=== PATIENT | male | born 1940 | race Hispanic/Latino ===

== ENCOUNTER 2016-12-25 11:25 | Emergency (ER) | payer MEDICAID, MEDICARE, OTHER ==
[2016-12-25 11:32] VITALS: BMI 31.0
[2016-12-25 11:39] VITALS: TEMP 98.5
--- NOTE | 2016-12-25 12:19 | ED PDOC ---
Arrival/HPI - General Chief Complaint: GI Problem Time Seen by Provider: 12/25/16 11:36 Historian: Patient - History of Present Illness Narrative History of Present Illness (Text): 12/25/16 12:20 A 76 year old male, whose past medical history includes CAD with stent, presents to the emergency department complaining of constipation for the past 4 days. Patient also notes loose bowel movements. Patient has a history of constipation. Patient denies nausea, vomiting, abdominal pain or any other complaints at this time. Patient denies smoking, alcohol or drug use. Time/Duration: Other (4 days) Symptom Onset: Sudden Symptom Course: Unchanged Activities at Onset: Rest Modifying Factors (Text): none Context: Home Associated Symptoms (Text): loose bowel movements Past Medical History - Provider Review Nursing Documentation Reviewed: Yes - Tetanus Immunization Tetanus Immunization: Unknown - Cardiac Hx Hypertension: Yes Hx Pacemaker: Yes - Pulmonary Hx Respiratory Disorders: No - Neurological Hx Paralysis: No - HEENT Hx Cataracts: Yes (early stage) - Renal Other/Comment: renal stent 2 months ago - Endocrine/Metabolic Hx Endocrine Disorders: No - Hematological/Oncological Hx Blood Transfusions: No Hx Blood Transfusion Reaction: No - Integumentary Hx Dermatological Disorder: No - Musculoskeletal/Rheumatological Hx Musculoskeletal Disorders: Yes (Hx of Laminectomy.) - Gastrointestinal Hx Gastrointestinal Disorders: No - Genitourinary/Gynecological 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) - Psychiatric Hx Emotional Abuse: No Hx Physical Abuse: No Hx Substance Use: No - Past Surgical History Past Surgical History: No Previous - Surgical History Hx Coronary Stent: Yes Other/Comment: renal stents - Anesthesia Hx Anesthesia: Yes Hx Anesthesia Reactions: No Hx Malignant Hyperthermia: No - Suicidal Assessment Feels Threatened In Home Enviroment: No Family/Social History - Physician Review Nursing Documentation Reviewed: Yes Family/Social History: No Known Family HX Smoking Status: Former Smoker Hx Alcohol Use: Yes (RARE) Hx Substance Use: No Allergies/Home Meds Allergies/Adverse Reactions: Allergies No Known Allergies Allergy (Verified 12/25/16 11:39) Home Medications: Home Meds Medication Instructions Recorded Confirmed Atorvastatin [Lipitor] 20 mg PO QPM 07/17/13 12/25/16 Aspirin [Aspirin] 81 mg PO DAILY 07/19/13 12/25/16 Irbesartan/Hydrochlorothiazide 1 tab PO DAILY 11/14/13 12/25/16 [Avalide 12.5 mg-300 mg] Cholecalciferol (Vitamin D3) 1,000 unit PO DAILY 02/08/16 12/25/16 [Vitamin D3] Docusate [Colace] 50 mg PO DAILY 02/08/16 12/25/16 Esomeprazole Magnesium [Nexium] 40 mg PO DAILY 02/08/16 12/25/16 Fish Oil/Dha/Epa [Fish Oil 1,200 1 each PO DAILY 02/08/16 12/25/16 mg Fish Oil] Ubidecarenone [Co Q-10] 10 mg PO DAILY 02/08/16 12/25/16 Review of Systems - Physician Review All systems were reviewed & negative as marked: Yes - Review of Systems Constitutional: absent: Fevers Respiratory: Normal Cardiovascular: Normal Gastrointestinal: Stool Changes (loose bowel movements), Constipation. absent: Abdominal Pain, Nausea, Vomiting, Appetite Changes, Anorexia Physical Exam Vital Signs Reviewed: Yes Vital Signs Temp Pulse Resp BP Pulse Ox 12/25/16 11:32 98.5 F 81 20 169/60 H 99 Temperature: Afebrile Blood Pressure: Hypertensive Pulse: Regular Respiratory Rate: Normal Appearance: Positive for: Well-Appearing, Non-Toxic, Comfortable Pain Distress: None Mental Status: Positive for: Alert and Oriented X 3 - Systems Exam Head: Present: Atraumatic, Normocephalic Pupils: Present: PERRL Extroacular Muscles: Present: EOMI Conjunctiva: Present: Normal Mouth: Present: Moist Mucous Membranes Neck: Present: Normal Range of Motion Respiratory/Chest: Present: Clear to Auscultation, Good Air Exchange. No: Respiratory Distress, Accessory Muscle Use Cardiovascular: Present: Regular Rate and Rhythm, Normal S1, S2. No: Murmurs Abdomen: Present: Normal Bowel Sounds. No: Tenderness, Distention, Peritoneal Signs Rectal: Present: Normal Rectal Tone, Other (soft brown guaiac neg stool with no fecal impaction). No: Occult Blood, Rectal Tenderness, Gross Blood, Melena, Hemorrhoids, Fissures, Nodule/Mass/Lesions Back: Present: Normal Inspection Upper Extremity: Present: Normal Inspection. No: Cyanosis, Edema Lower Extremity: Present: Normal Inspection. No: Edema Neurological: Present: GCS=15, CN II-XII Intact, Speech Normal Skin: Present: Warm, Dry, Normal Color. No: Rashes Psychiatric: Present: Alert, Oriented x 3, Normal Insight, Normal Concentration Medical Decision Making ED Course and Treatment: 12/25/16 12:18 Impression: A 76 year old male with constipation. Differential Diagnosis included but are not limited to: Plan: -- fleet enema -- Reassess and disposition Prior Visits: Notes and results from previous visits were reviewed. Patient last reported to the emergency department on 02/19/14 for evaluation of generalized weakness and dizziness. Patient was hospitalized. Progress Notes: 12/25/16 13:43 good results with fleets enema. - Medication Orders Current Medication Orders: Discontinued Medications Sodium Phosphate (Fleet Enema) 135 ml RC STAT STA Stop: 12/25/16 11:45 Last Admin: 12/25/16 12:35 Dose: 135 ml - Scribe Statement The provider has reviewed the documentation as recorded by the Lexisibtaz Garcia Provider Scribe Attestation: All medical record entries made by the Scribe were at my direction and personally dictated by me. I have reviewed the chart and agree that the record accurately reflects my personal performance of the history, physical exam, medical decision making, and the department course for this patient. I have also personally directed, reviewed, and agree with the discharge instructions and disposition. Disposition/Present on Arrival - Present on Arrival Any Indicators Present on Arrival: No History of DVT/PE: No History of Uncontrolled Diabetes: No Urinary Catheter: No History of Decub. Ulcer: No History Surgical Site Infection Following: None - Disposition Have Diagnosis and Disposition been Completed?: Yes Diagnosis: Constipation Disposition: HOME/ ROUTINE Disposition Time: 13:44 Patient Plan: Discharge Condition: IMPROVED Discharge Instructions (ExitCare): Constipation (ED) Additional Instructions: MiraLAX [id number] as directed on bottle as needed
[2016-12-25 14:24] VITALS: BP 151/74; PULSE 80; RESP 18; O2SAT 98
== END 2016-12-25 14:23 | disposition home or self-care (01) ==
LOC: ED 11:25
DX: K59.00 Constipation, unspecified (principal)

== ENCOUNTER 2016-12-27 09:36 | Inpatient (IN) | payer MEDICARE, OTHER ==
[2016-12-27 09:37] VITALS: BMI 31.0
[2016-12-27] MEDS ORDERED: Morphine 2 mg/ml ISec IVP STA ×2 (11:18→12:52)
[2016-12-27] MEDS ORDERED: Piperacillin/Tazobact 3.375 gm 100 ML IVPB STA (11:19)
--- NOTE | 2016-12-27 11:19 | ED PDOC ---
Arrival/HPI - General Chief Complaint: Abdominal Pain Time Seen by Provider: 12/27/16 11:06 Historian: Patient - History of Present Illness Narrative History of Present Illness (Text): 12/27/16 11:17 Patient is a 76 year old male whose past medical history includes renal stent, pacemaker, CAD, presents to the emergency department with buttock pain, incomplete bowel movements, and decreased urinary output for the past few days. Patient also reports intermittent chills after eating for the past week. Patient states he was seen here in the ED two days ago and given fleet enema but has not had any normal bowel movements since. Patient reports last bowel movement this morning which was small. He states his urine has been "trickling" since being discharged. Denies bloody stool, chest pain, shortness of breath, or other symptoms. PMD: Dr. Orantes Time/Duration: < week Symptom Onset: Gradual Symptom Course: Unchanged Associated Symptoms (Text): Chills Past Medical History - Provider Review Nursing Documentation Reviewed: Yes - Tetanus Immunization Tetanus Immunization: Unknown - Cardiac Hx Cardiac Disorders: Yes Hx Hypertension: Yes Hx Pacemaker: Yes - Pulmonary Hx Respiratory Disorders: No - Neurological Hx Neurological Disorder: No Hx Paralysis: No - HEENT Hx HEENT Disorder: Yes Hx Cataracts: Yes (early stage) - Renal Hx Renal Disorder: Yes Other/Comment: renal stent 2 months ago - Endocrine/Metabolic Hx Endocrine Disorders: No - Hematological/Oncological Hx Blood Transfusions: No Hx Blood Transfusion Reaction: No - Integumentary Hx Dermatological Disorder: No - Musculoskeletal/Rheumatological Hx Musculoskeletal Disorders: Yes (Hx of Laminectomy.) - Gastrointestinal Hx Gastrointestinal Disorders: No - Genitourinary/Gynecological Hx Genitourinary Disorders: Yes 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) - Psychiatric Hx Psychophysiologic Disorder: No Hx Emotional Abuse: No Hx Physical Abuse: No Hx Substance Use: No - Past Surgical History Past Surgical History: No Previous - Surgical History Hx Coronary Stent: Yes Other/Comment: renal stents - Anesthesia Hx Anesthesia: Yes Hx Anesthesia Reactions: No Hx Malignant Hyperthermia: No - Suicidal Assessment Feels Threatened In Home Enviroment: No Family/Social History - Physician Review Nursing Documentation Reviewed: Yes Family/Social History: Unknown Family HX Smoking Status: Former Smoker Hx Alcohol Use: No Hx Substance Use: No Allergies/Home Meds Allergies/Adverse Reactions: Allergies No Known Allergies Allergy (Verified 12/27/16 09:51) Home Medications: Home Meds Medication Instructions Recorded Confirmed Atorvastatin [Lipitor] 20 mg PO QPM 07/17/13 12/27/16 Aspirin [Aspirin] 81 mg PO DAILY 07/19/13 12/27/16 Irbesartan/Hydrochlorothiazide 1 tab PO DAILY 11/14/13 12/27/16 [Avalide 12.5 mg-300 mg] Cholecalciferol (Vitamin D3) 1,000 unit PO DAILY 02/08/16 12/27/16 [Vitamin D3] Docusate [Colace] 50 mg PO DAILY 02/08/16 12/27/16 Esomeprazole Magnesium [Nexium] 40 mg PO DAILY 02/08/16 12/27/16 Fish Oil/Dha/Epa [Fish Oil 1,200 1 each PO DAILY 02/08/16 12/27/16 mg Fish Oil] Ubidecarenone [Co Q-10] 10 mg PO DAILY 02/08/16 12/27/16 Review of Systems - Review of Systems Constitutional: Fatigue, Other (Chills) Eyes: absent: Vision Changes ENT: absent: Hearing Changes Respiratory: absent: SOB, Cough Cardiovascular: absent: Chest Pain, Palpitations Gastrointestinal: Abdominal Pain, Constipation. absent: Vomiting, Hematochezia Genitourinary Male: Urinary Output Changes (decreased). absent: Dysuria, Frequency Musculoskeletal: absent: Back Pain Skin: absent: Rash Neurological: absent: Headache, Dizziness, Focal Weakness Endocrine: absent: Diaphoresis Hemo/Lymphatic: absent: Easy Bleeding Psychiatric: absent: Depression Physical Exam - Physical Exam Narrative Physical Exam (Text): Head: Atraumatic. Normocephalic. Eyes: PERRL. EOMI. Conjunctivae are not pale. ENT: Mucous membranes are moist and intact. Oropharynx is clear and symmetric. Neck: Supple. Full ROM. No JVD. No lymphadenopathy. Cardiovascular: Regular rate. Regular rhythm. Systolic murmur. Distal pulses intact. Pulmonary/Chest: No evidence of respiratory distress. Clear to auscultation bilaterally. No wheezing, rales or rhonchi. Abdominal: Distended. Diffuse discomfort in all 4 quadrants. There is no tenderness. No rebound, guarding, or rigidity. No organomegaly. Good bowel sounds. Back: No CVA tenderness. Rectal: Tenderness and erythematous mass from left buttock extending to rectum. Tender on rectal exam with no melena or bright red blood per rectum. Extremities: No edema. No cyanosis. No clubbing. Full range of motion in all extremities. No calf tenderness. Skin: Skin is warm and dry. No petechiae. No purpura. Neurological: Alert, awake, and oriented to person, place, time, and situation. Normal speech. Motor and sensory exam intact. Psychiatric: Good eye contact. Normal interaction, affect, and behavior. Vital Signs Reviewed: Yes Vital Signs Temp Pulse Resp BP Pulse Ox 12/27/16 14:54 65 177 H 107/44 L 98 12/27/16 14:45 61 17 96/49 L 98 12/27/16 14:30 68 16 104/49 L 97 12/27/16 14:15 61 17 115/45 L 97 12/27/16 14:10 70 17 123/33 L 97 12/27/16 13:55 64 17 104/33 L 96 12/27/16 13:40 72 17 100/65 97 12/27/16 13:25 70 16 111/53 L 97 12/27/16 13:10 73 17 111/59 L 97 12/27/16 12:55 62 17 86/39 L 97 12/27/16 12:40 70 16 120/36 L 97 12/27/16 12:10 61 18 109/63 100 12/27/16 09:54 97.8 F 78 17 121/64 98 Temperature: Afebrile Blood Pressure: Normal Pulse: Regular Respiratory Rate: Normal Appearance: Positive for: Non-Toxic, Uncomfortable Pain Distress: Moderate Mental Status: Positive for: Alert and Oriented X 3 Medical Decision Making ED Course and Treatment: Differential Diagnosis included but are not limited to: Bowel obstruction vs perirectal abscess vs sepsis vs urinary retention Plan: Will obtain CT of the Abdomen/Pelvis, IV antibiotics, blood cultures, and surgical consult. Prior Visits: Notes and results from previous visits were reviewed. Patient last seen in the ED on 12/25/16 for constipation and discharged home with Miralax. 2014 report shows patient's EF of 60%. Progress Notes: Patient with severe pain around buttock extending to rectum, with erythema and mass palpated. Based on exam susicious of perirectal abscess. PROCEDURE: CT Abdomen and Pelvis without intravenous contrast Report Date : 12/27/2016 12:46:18 Tank Cooper : Rafat Gore MD BOWEL: There is an extensive perirectal and left gluteal abscess. The abscess can be seen inferior to the levator muscles of the pelvis. This is best appreciated on coronal images 98-104. Gas and fluid collections are seen which extend into the left buttocks best demonstrated on image 170. The perianal/perirectal component measures 5 x 7 cm as seen on image 160. The gluteal inflammation and air collections measure approximately 8 cm in diameter image 173 IMPRESSION: Extensive perirectal/perianal abscess on the left extending into the left gluteal region. See comment Based on initial exam, surgery was consulted immediately after exam. PMD requests Dr. Infante, Dr. Howe covering. Case discussed with Dr. Howe who has reviewed CT Case discussed with Dr. Sharpe, covering Dr. Orantes, who accepts patient for admission Case discussed with superintendent operations division Dr. Prabhakar will be admitted to icu pending surgery plan this afternoon Code Sepsis was called based on leukocytosis, lactate of 2.0, renal insufficiency. IV fluid bolus ordered and patient given Zosyn and Flagyl. Patient was admitted to ICU given risks of sepsis, emergent surgery scheduled with Dr. Howe. He denies any chest pain or shortness of breath. Treatment plan reviewed with patient and family. 12/27/16 16:05 - Critical Care Critical Care Minutes: 30 minutes - Lab Interpretations Lab Results: 12/27/16 10:10 12/27/16 10:10 Lab Results 12/27/16 11:23: POC Glucose (mg/dL) 161 H 12/27/16 10:10: Sodium 134, Chloride 95 L, Potassium 3.6, Carbon Dioxide 22, Anion Gap 21 H, BUN 57 H, Creatinine 2.3 H, Est GFR ( Amer) 34, Est GFR ( Non-Af Amer) 28, Random Glucose 144 H, Calcium 8.9, Total Bilirubin 1.5 H, AST 67 H, ALT 43, Alkaline Phosphatase 143 H, Lactate Dehydrogenase 578, Total Creatine Kinase 946 H, CK-MB (CK-2) 17.5 H, CK-MB (CK-2) % 1.8 L, Troponin I 0.03 D, Total Protein 7.4, Albumin 3.5, Globulin 3.9, Albumin/Globulin Ratio 0.9 L 12/27/16 10:10: PT 12.5 H, INR 1.16 H, APTT 34.4 H 12/27/16 10:10: WBC 25.9 H* D, RBC 4.40, Hgb 13.5 L, Hct 39.1 L, MCV 88.9, MCH 30.7, MCHC 34.5, RDW 12.9, Plt Count 381, MPV 11.6 H, Gran % 90.3 H, Lymph % ( Auto) 4.1 L, [place] % (Auto) 5.4, Eos % (Auto) 0.0 L, Baso % (Auto) 0.2, Gran # 23.34 H, Lymph # 1.1 L, [place] # 1.4 H, Eos # 0.0, Baso # 0.04 12/27/16 10:10: pO2 28 L, VBG pH 7.41, VBG pCO2 39.0 L, VBG HCO3 24.7, VBG Total CO2 25.9, VBG O2 Sat (Calc) 57.1, VBG Base Excess 0.1, VBG Potassium 4.0, Sodium 131.0 L, Chloride 101.0, Glucose 158 H, Lactate 2.0, FiO2 21.0, Venous Blood Potassium 4.0 - RAD Interpretation Radiology Orders: 12/27/16 11:16 ABD & PELVIS W/O PO OR IV CONT [CT] Stat 12/27/16 11:17 CHEST ONE VIEW [RAD] Stat Synoptic Meteorologist: Radiologist - EKG Interpretation EKG Interpretation (Text): 12/27/16 16:03 EKG at 11:20 electronic ventricualar pacemaker rate of 65 Interpreted by ED Physician: Yes Type: 12 lead EKG - Medication Orders Current Medication Orders: Hydromorphone HCl (Dilaudid) 0.5 mg IVP Q15M PRN PRN Reason: Pain, moderate (4-7) Stop: 12/27/16 17:45 Metronidazole (Flagyl) 500 mg in 100 mls @ 100 mls/hr IVPB Q8 ADRIANNE PRN Reason: Protocol Piperacillin Sod/Tazobactam Sod (Zosyn 3.375 In Ns 100ml) 100 mls @ 200 mls/hr IVPB Q6 ADRIANNE PRN Reason: Protocol Stop: 12/28/16 00:29 Vancomycin HCl (Vancomycin 1gm) 1 gm in 250 mls @ 167 mls/hr IVPB STAT STA PRN Reason: Protocol Stop: 12/27/16 16:11 Sodium Chloride (Sodium Chloride 0.9%) 1,000 mls @ 100 mls/hr IV .Q10H ADRIANNE Meperidine HCl (Demerol) 25 mg IVP Q10M PRN PRN Reason: shivering Stop: 12/27/16 16:54 Morphine Sulfate (Morphine) 2 mg IVP Q4H PRN PRN Reason: Pain, moderate (4-7) Ondansetron HCl (Zofran Inj) 4 mg IVP Q4H PRN PRN Reason: Nausea/Vomiting Ondansetron HCl (Zofran Inj) 4 mg IVP ONCE PRN PRN Reason: Nausea/Vomiting Pantoprazole Sodium (Protonix Inj) 40 mg IVP DAILY ADRIANNE Discontinued Medications Bupivacaine HCl (Marcaine 0.5%) Confirm Administered Dose 30 ml .ROUTE .STK-MED ONE Stop: 12/27/16 14:34 Last Admin: 12/27/16 15:30 Dose: 5 ml Fentanyl (Fentanyl) Confirm Administered Dose 100 mcg .ROUTE .STK-MED ONE Stop: 12/27/16 15:17 Piperacillin Sod/Tazobactam Sod (Zosyn 3.375 In Ns 100ml) 100 mls @ 200 mls/hr IVPB STAT STA PRN Reason: Protocol Stop: 12/27/16 11:48 Last Admin: 12/27/16 11:37 Dose: 200 mls/hr Sodium Chloride (Sodium Chloride 0.9%) 500 mls @ 1,000 mls/hr IV .Q30M STA Stop: 12/27/16 12:46 Last Admin: 12/27/16 12:24 Dose: 1,000 mls/hr Sodium Chloride 2,360 ml/ IV (SUPPLIES) 2,360 mls @ 5,715.24 mls/hr IV ONCE ONE PRN Reason: 60 ML/KG/HR Stop: 12/27/16 12:38 Last Admin: 12/27/16 12:51 Dose: 5,715.24 mls/hr Metronidazole (Flagyl) 500 mg in 100 mls @ 100 mls/hr IVPB STAT STA PRN Reason: Protocol Stop: 12/27/16 13:50 Last Admin: 12/27/16 13:22 Dose: 100 mls/hr Sodium Chloride (Sodium Chloride 0.9%) 1,000 mls @ 75 mls/hr IV .[id number] ADRIANNE Last Admin: 12/27/16 13:33 Dose: 75 mls/hr Magnesium Sulfate 2 gm/ Sodium (Chloride) 104 mls @ 102 mls/hr IVPB ONCE ONE Stop: 12/27/16 15:56 Lidocaine HCl (Xylocaine 2% (Uro-Jet)) Confirm Administered Dose 1 ea .ROUTE .STK-MED ONE Stop: 12/27/16 15:08 Midazolam HCl (Versed Inj) Confirm Administered Dose 2 mg .ROUTE .STK-MED ONE Stop: 12/27/16 15:17 Morphine Sulfate (Morphine) 2 mg IVP STAT STA Stop: 12/27/16 11:19 Last Admin: 12/27/16 11:23 Dose: 2 mg Re-Assess: [facility] Pain Assessment Document 12/27/16 12:23 ALA (Rec: 12/27/16 12:52 ALA [id number]) Pain Reassessment Is this a pain reassessment? Yes Morphine Sulfate (Morphine) 2 mg IVP STAT STA Stop: 12/27/16 12:53 Last Admin: 12/27/16 13:22 Dose: 2 mg Re-Assess: [facility] Pain Assessment Document 12/27/16 14:22 ALA (Rec: 12/27/16 14:32 ALA [id number]) Pain Reassessment Is this a pain reassessment? Yes Presence of Pain Presence of Pain Yes Pain Scale Used Pain Scale Used Numeric Description Intensity of Pain at present 4 Propofol (Diprivan) Confirm Administered Dose 200 mg .ROUTE .STK-MED ONE Stop: 12/27/16 15:17 - Scribe Statement The provider has reviewed the documentation as recorded by the Lex Davis Provider Scribe Attestation: All medical record entries made by the Scribtaz were at my direction and personally dictated by me. I have reviewed the chart and agree that the record accurately reflects my personal performance of the history, physical exam, medical decision making, and the department course for this patient. I have also personally directed, reviewed, and agree with the discharge instructions and disposition. Disposition/Present on Arrival - Present on Arrival Any Indicators Present on Arrival: No History of DVT/PE: No History of Uncontrolled Diabetes: No Urinary Catheter: No History of Decub. Ulcer: No History Surgical Site Infection Following: None - Disposition Have Diagnosis and Disposition been Completed?: Yes Diagnosis: Perirectal abscess Disposition: HOSPITALIZED Disposition Time: 12:00 Patient Plan: Admission, ICU Patient Problems: Current Active Problems Problem Status Onset Perirectal abscess Acute Condition: CRITICAL
[2016-12-27 11:57] LABS: VENOUS BLOOD GAS BASE EXCESS 0.1 mmol/L (0.0-2.0); VENOUS BLOOD PH 7.41 (7.32-7.43)
[2016-12-27 12:02] LABS: BASO # 0.04 K/mm3 (0.0-2.0); BASO % 0.2 % (0.0-3.0); GRAN # 23.34 (1.4-6.5); GRAN % 90.3 % (50.0-68.0); HEMATOCRIT 39.1 % (42.0-52.0); LYMPH # 1.1 (1.2-3.4); LYMPH % 4.1 % (22.0-35.0); MEAN CELL VOLUME 88.9 fL (80.0-105.0); MEAN CORPUSCULAR HEMOGLOBIN 30.7 pg (25.0-35.0); MEAN CORPUSCULAR HGB CONC 34.5 g/dl (31.0-37.0); MEAN PLATELET VOLUME 11.6 fl (7.0-11.0); MONO # 1.4 (0.1-0.6); MONO % 5.4 % (1.0-6.0); PLATELET COUNT 381 10^3/uL (120.0-450.0); RED CELL DISTRIBUTION WIDTH 12.9 % (11.5-14.5)
[2016-12-27 12:07] LABS: ADD MANUAL DIFF? NO; WHITE BLOOD COUNT 25.9 10^3/ul (4.5-11.0)
[2016-12-27 12:09] LABS: ALB/GLOB RATIO 0.9 (1.1-1.8); BILIRUBIN,TOTAL 1.5 mg/dL (0.2-1.3); CALCIUM 8.9 mg/dL (8.4-10.5); INR 1.16 (0.93-1.08); PARTIAL THROMBOPLASTIN TIME 34.4 Seconds (23.7-30.8); POTASSIUM 3.6 mmol/L (3.6-5.0); TOTAL PROTEIN 7.4 g/dL (5.8-8.3)
[2016-12-27] MEDS ORDERED: Sodium Chloride 0.9% 500 ML IV STA (12:17)
[2016-12-27 12:20] LABS: TROPONIN I 0.03 ng/mL
--- NOTE | 2016-12-27 12:47 | CT ---
PROCEDURE: CT Abdomen and Pelvis without intravenous contrast HISTORY: possible bowel or renal obstruction, left buttock COMPARISON: None. TECHNIQUE: Without contrast.. Contrast Dose: Radiation dose: Total exam DLP = 1069 mGy-cm. This CT exam was performed using one or more of the following dose reduction techniques: Automated exposure control, adjustment of the mA and/or kV according to patient size, and/or use of iterative reconstruction technique. FINDINGS: LOWER THORAX: Unremarkable. LIVER: Unremarkable. No gross lesion or ductal dilatation. GALLBLADDER AND BILE DUCTS: Unremarkable. PANCREAS: Unremarkable. No gross lesion or ductal dilatation. SPLEEN: Unremarkable. ADRENALS: Unremarkable. No mass. KIDNEYS AND URETERS: Unremarkable. No hydronephrosis. No solid mass. VASCULATURE: Unremarkable. No aortic aneurysm. BOWEL: There is an extensive perirectal and left gluteal abscess. The abscess can be seen inferior to the levator muscles of the pelvis. This is best appreciated on coronal images 98-104. Gas and fluid collections are seen which extend into the left buttocks best demonstrated on image 170. The perianal/perirectal component measures 5 x 7 cm as seen on image 160. The gluteal inflammation and air collections measure approximately 8 cm in diameter image 173 APPENDIX: Unremarkable. Normal appendix. PERITONEUM: Unremarkable. No free fluid. No free air. LYMPH NODES: Unremarkable. No enlarged lymph nodes. BLADDER: Unremarkable. REPRODUCTIVE: Unremarkable. BONES: No acute fracture. OTHER FINDINGS: None. IMPRESSION: Extensive perirectal/perianal abscess on the left extending into the left gluteal region. See comment
[2016-12-27] MEDS ORDERED: metroNIDAZOLE IV 500 mg/100 ml 500 MG/100 ML BAG IVPB STA (12:51)
--- NOTE | 2016-12-27 12:54 | RAD ---
PROCEDURE: CHEST RADIOGRAPH, 1 VIEW HISTORY: weakness COMPARISON: 02/21/2014 FINDINGS: LUNGS: Clear. PLEURA: No pneumothorax or pleural fluid seen. CARDIOVASCULAR: Normal. OSSEOUS STRUCTURES: No significant abnormalities. VISUALIZED UPPER ABDOMEN: Normal. OTHER FINDINGS: Single lead pacemaker IMPRESSION: No active disease.
--- NOTE | 2016-12-27 13:08 | CP.PCM.HP ---
<Ashlyn Moore - Last Filed: 12/27/16 17:03> History of Present Illness - History of Present Illness History of Present Illness: CC: My but area feels unconfortable. 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 Patient states for the past 2 weeks he has been feeling uncomfortable in the rectal area. Then On Sunday when he tried to defecate the stool doesn't come out. Patient was in the ER on Sunday, and was treated for constipation with fleet enema. Patient states when he went home, the problem continued. Patient called PMD today and was told to come to the ED. Patient states today when he tried to whip after defecation, and felt a hard rock on the left side of his anus. Patient denies prior h/o of rectal abscess. Patient denies fever, but reports chills. Patient denies cp, sob, headache, dizziness, Patient denies nausea, vomiting or diarrhea. 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 PSH: Robotic prostrate cancer recontruciton, back surgery, PPM, carotid endarterectomy ( last year) Social: former smoker, quit 4 yrs ago, denies alcohol or illicit drug use Allergy: NKDA. Present on Admission - Present on Admission Any Indicators Present on Admission: No History of DVT/PE: No History of Uncontrolled Diabetes: No Urinary Catheter: No Decubitus Ulcer Present: No Review of Systems - Review of Systems All systems: reviewed and no additional remarkable complaints except Review of Systems: As stated in HPI. Past Patient History - Tetanus Immunizations Tetanus Immunization: Unknown - Past Medical History & Family History Past Medical History?: Yes - Past Social History Smoking Status: Former Smoker Alcohol: None Drugs: Denies Home Situation {Lives}: With Family - CARDIAC Hx Cardiac Disorders: Yes Hx Hypertension: Yes Hx Pacemaker: Yes - PULMONARY Hx Respiratory Disorders: No - NEUROLOGICAL Hx Neurological Disorder: No Hx Paralysis: No - HEENT Hx HEENT Problems: Yes Hx Cataracts: Yes (early stage) - RENAL Hx Chronic Kidney Disease: Yes Other/Comment: renal stent 2 months ago - ENDOCRINE/METABOLIC Hx Endocrine Disorders: No - HEMATOLOGICAL/ONCOLOGICAL Hx Blood Transfusions: No Hx Blood Transfusion Reaction: No - INTEGUMENTARY Hx Dermatological Problems: No - MUSCULOSKELETAL/RHEUMATOLOGICAL Hx Musculoskeletal Disorders: Yes (Hx of Laminectomy.) - GASTROINTESTINAL Hx Gastrointestinal Disorders: No - GENITOURINARY/GYNECOLOGICAL Hx Genitourinary Disorders: Yes 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) - PSYCHIATRIC Hx Psychophysiologic Disorder: No Hx Emotional Abuse: No Hx Physical Abuse: No Hx Substance Use: No - SURGICAL HISTORY Hx Coronary Stent: Yes Other/Comment: renal stents - ANESTHESIA Hx Anesthesia: Yes Hx Anesthesia Reactions: No Hx Malignant Hyperthermia: No Meds Allergies/Adverse Reactions: Allergies Allergy/AdvReac Type Severity Reaction Status Date / Time No Known Allergies Allergy Verified 12/27/16 09:51 Physical Exam - Constitutional Appears: No Acute Distress - Head Exam Head Exam: ATRAUMATIC, NORMAL INSPECTION, NORMOCEPHALIC - Eye Exam Eye Exam: EOMI, Normal appearance, PERRL. absent: Scleral icterus - ENT Exam ENT Exam: Mucous Membranes Moist - Neck Exam Neck exam: Positive for: Normal Inspection - Respiratory Exam Respiratory Exam: Clear to Auscultation Bilateral, NORMAL BREATHING PATTERN. absent: Rales, Rhonchi, Wheezes, Respiratory Distress, Stridor - Cardiovascular Exam Cardiovascular Exam: Diastolic murmur, REGULAR RHYTHM, RRR, +S1, +S2. absent: Systolic Murmur - GI/Abdominal Exam GI & Abdominal Exam: Normal Bowel Sounds, Soft. absent: Distended, Firm, Guarding, Hernia, Rigid, Tenderness - Rectal Exam Additional comments: Errythema, edematous, hard palpable mass like lesion. - Extremities Exam Extremities exam: Positive for: normal inspection. Negative for: pedal edema - Back Exam Back exam: NORMAL INSPECTION - Neurological Exam Neurological exam: Alert, Oriented x3 - Psychiatric Exam Psychiatric exam: Normal Affect, Normal Mood - Skin Skin Exam: Dry, Intact, Normal Color, Warm Results - Vital Signs Recent Vital Signs: Last Vital Signs Temp 97.8 F 12/27/16 09:54 Pulse 61 12/27/16 12:10 Resp 18 12/27/16 12:10 BP 109/63 12/27/16 12:10 Pulse Ox 100 12/27/16 12:10 - Labs Result Diagrams: 12/27/16 10:10 12/27/16 10:10 Labs: Laboratory Results - last 24 hr 12/27/16 12/27/16 12/27/16 10:10 10:10 10:10 WBC 25.9 H* D RBC 4.40 Hgb 13.5 L Hct 39.1 L MCV 88.9 MCH 30.7 MCHC 34.5 RDW 12.9 Plt Count 381 MPV 11.6 H Gran % 90.3 H Lymph % (Auto) 4.1 L [place] % (Auto) 5.4 Eos % (Auto) 0.0 L Baso % (Auto) 0.2 Gran # 23.34 H Lymph # 1.1 L [place] # 1.4 H Eos # 0.0 Baso # 0.04 PT 12.5 H INR 1.16 H APTT 34.4 H pO2 28 L VBG pH 7.41 VBG pCO2 39.0 L VBG HCO3 24.7 VBG Total CO2 25.9 VBG O2 Sat (Calc) 57.1 VBG Base Excess 0.1 VBG Potassium 4.0 Sodium 131.0 L Chloride 101.0 Glucose 158 H Lactate 2.0 FiO2 21.0 Potassium Carbon Dioxide Anion Gap BUN Creatinine Est GFR ( Amer) Est GFR (Non-Af Amer) POC Glucose (mg/dL) Random Glucose Calcium Total Bilirubin AST ALT Alkaline Phosphatase Lactate Dehydrogenase Total Creatine Kinase CK-MB (CK-2) CK-MB (CK-2) % Troponin I Total Protein Albumin Globulin Albumin/Globulin Ratio Venous Blood Potassium 4.0 12/27/16 12/27/16 10:10 11:23 WBC RBC Hgb Hct MCV MCH MCHC RDW Plt Count MPV Gran % Lymph % (Auto) [place] % (Auto) Eos % (Auto) Baso % (Auto) Gran # Lymph # [place] # Eos # Baso # PT INR APTT pO2 VBG pH VBG pCO2 VBG HCO3 VBG Total CO2 VBG O2 Sat (Calc) VBG Base Excess VBG Potassium Sodium 134 Chloride 95 L Glucose Lactate FiO2 Potassium 3.6 Carbon Dioxide 22 Anion Gap 21 H BUN 57 H Creatinine 2.3 H Est GFR ( Amer) 34 Est GFR (Non-Af Amer) 28 POC Glucose (mg/dL) 161 H Random Glucose 144 H Calcium 8.9 Total Bilirubin 1.5 H AST 67 H ALT 43 Alkaline Phosphatase 143 H Lactate Dehydrogenase 578 Total Creatine Kinase 946 H CK-MB (CK-2) 17.5 H CK-MB (CK-2) % 1.8 L Troponin I 0.03 D Total Protein 7.4 Albumin 3.5 Globulin 3.9 Albumin/Globulin Ratio 0.9 L Venous Blood Potassium - EKG Data EKG Interpreted by: Myself (paced rhythm) Assessment & Plan - Assessment and Plan (Free Text) Assessment: 76 y/o with pmh of CAD with stents in the past, AR, h/o prostate ca s/p robotic reconstruction, Gerd, hld, 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 CT abdomen and pelvis revealed extensive perirectal abscess. Plan: 1)Sepsis secondary to Kaia-rectal abscess - Surgery on consult , scheduled for OR today - npo - ns@100 m/l - Unger cultures sent - Will trend lactic acid - ID on consult - Patient started on vanco, zosyn and flagyl - Morphine prn for pain - Zofran prn fot n/v. 2) DENISE likely prerenal - will obtain fena - fluid challenge 3) Transaminitis - likely from shock liver 2nd to sepsis - will trend LRTs. 4) Coagulopathy - will trend INR -Transaminits work up 5) CAD with h/o stents and PPM - cardio consult 6) HTN - Will hold htn meds for now 7) Hypomagnesemia - will replet with mag ox 8) DVT and Gi prophylaxis: scds and protonix. Patient seen, examined, case discussed with Dr Sharpe. - Date & Time Date: 12/27/16 Time: 12:30 <Woody Sharpe - Last Filed: 01/14/17 18:59> Results - Vital Signs Recent Vital Signs: Last Vital Signs Temp 98.4 F 01/14/17 18:00 Pulse 60 01/14/17 18:00 Resp 16 01/14/17 18:00 BP 153/55 H 01/14/17 18:00 Pulse Ox 97 01/14/17 05:43 - Labs Result Diagrams: 01/14/17 06:25 01/14/17 06:25 Labs: Laboratory Results - last 24 hr 01/14/17 01/14/17 06:25 06:25 WBC 6.5 RBC 3.01 L Hgb 9.2 L Hct 26.8 L MCV 89.0 MCH 30.6 MCHC 34.3 RDW 15.2 H Plt Count 387 MPV 10.3 Gran % 62.0 Lymph % (Auto) 25.0 [place] % (Auto) 7.6 H Eos % (Auto) 5.1 H Baso % (Auto) 0.3 Gran # 4.03 Lymph # 1.6 [place] # 0.5 Eos # 0.3 Baso # 0.02 Sodium 135 Potassium 3.8 Chloride 103 Carbon Dioxide 29 Anion Gap 7 L BUN 22 H Creatinine 1.1 Est GFR ( Amer) > 60 Est GFR (Non-Af Amer) > 60 Random Glucose 113 H Calcium 8.1 L Magnesium 1.5 L Total Bilirubin 0.4 AST 59 ALT 40 Alkaline Phosphatase 49 Total Protein 5.0 L Albumin 2.1 L Globulin 2.9 Albumin/Globulin Ratio 0.7 L Attending/Attestation - Attestation I have personally seen and examined this patient.: Yes I have fully participated in the care of the patient.: Yes I have reviewed all pertinent clinical information: Yes Notes (Text): 01/14/17 18:59 Medical record note made by the resident after discussion with my direction and input after the patient was personally seen and examined by me. I have reviewed the chart and agree that the record accurately reflects by personal performance of the history, physical exam, data review, and medical decision-making, in the course for the patient. I have also personally directed the plan of care.
[2016-12-27] MEDS ORDERED: Sodium Chloride 0.9% 1,000 ML IV SCH ×2 (13:15→14:46)
[2016-12-27 13:48] LABS: MAGNESIUM 1.5 mg/dL (1.7-2.2); PHOSPHOROUS 3.3 mg/dL (2.5-4.5)
--- NOTE | 2016-12-27 14:07 | CP.PCM.CON ---
<Flory Cat - Last Filed: 12/27/16 13:41> History of Present Illness - History of Present Illness History of Present Illness: General Surgery Dr. Howe HPI: 76 y/o M w/ PMHx of HTN, HLD, CHF w/ LVEF of 23% presents to the ED w/ c/o rectal pain and hard L buttock. Pt states he first noticed the pain while riding the stationary bike ~1wk ago. Pt attributed the pain to hemorrhoids, of which he has a history. Pt also states that around that time he felt like he wasn't emptying his bowels completely during his bowel movements. Pt presented to the ED earlier in the week, was Dx w/ constipation, and sent home w/ stool softeners. Pt states that despite stool softeners, he still felt like his bowel movements were stopping prematurely. Daughter reports pt had temp of 102 on Sunday and has intermittent chills since then. Pt has had poor appetite this week w/ some nausea but no vomiting. Last evening, pt reports noticing a hardness to his left buttock as well as urinary retention, hesitancy, frequency , and urgency, which prompted pt to come to the ED. Admits to rectal pain not made worse by BM unless pushing. Pt denies hematochezia, melena. Pt denies new/ worsening dizziness, lightheadedness, CP, SOB, numbness/weakness. Pt denies any recent issues w/ bruising or bleeding. Pt states last meal was at 4pm yesterday but had some sips of water this AM prior to coming to the ED. PMHx: HTN, CHF, HLD, Carotid stenosis, renal artery stenosis, prostate Ca Meds: reviewed in chart NKDA PSHx: CEA, pacemaker, renal stent, TURP, cataracts, laminetomy SHx: quit smoking 4yrs ago, 1/2-1ppd x50yrs. denies EtOH, drugs FHx: noncontributory Review of Systems - Review of Systems All systems: reviewed and no additional remarkable complaints except (see HPI) Past Patient History - Tetanus Immunizations Tetanus Immunization: Unknown - Past Social History Smoking Status: Former Smoker - CARDIAC Hx Cardiac Disorders: Yes Hx Hypertension: Yes Hx Pacemaker: Yes - PULMONARY Hx Respiratory Disorders: No - NEUROLOGICAL Hx Neurological Disorder: No Hx Paralysis: No - HEENT Hx HEENT Problems: Yes Hx Cataracts: Yes (early stage) - RENAL Hx Chronic Kidney Disease: Yes Other/Comment: renal stent 2 months ago - ENDOCRINE/METABOLIC Hx Endocrine Disorders: No - HEMATOLOGICAL/ONCOLOGICAL Hx Blood Transfusions: No Hx Blood Transfusion Reaction: No - INTEGUMENTARY Hx Dermatological Problems: No - MUSCULOSKELETAL/RHEUMATOLOGICAL Hx Musculoskeletal Disorders: Yes (Hx of Laminectomy.) - GASTROINTESTINAL Hx Gastrointestinal Disorders: No - GENITOURINARY/GYNECOLOGICAL Hx Genitourinary Disorders: Yes 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) - PSYCHIATRIC Hx Psychophysiologic Disorder: No Hx Emotional Abuse: No Hx Physical Abuse: No Hx Substance Use: No - SURGICAL HISTORY Hx Coronary Stent: Yes Other/Comment: renal stents - ANESTHESIA Hx Anesthesia: Yes Hx Anesthesia Reactions: No Hx Malignant Hyperthermia: No Meds Allergies/Adverse Reactions: Allergies Allergy/AdvReac Type Severity Reaction Status Date / Time No Known Allergies Allergy Verified 12/27/16 09:51 - Medications Medications: Current Medications Metronidazole (Flagyl) 500 mg in 100 mls @ 100 mls/hr IVPB STAT STA PRN Reason: Protocol Stop: 12/27/16 13:50 Last Admin: 12/27/16 13:22 Dose: 100 mls/hr Sodium Chloride (Sodium Chloride 0.9%) 1,000 mls @ 75 mls/hr IV .[id number] ADRIANNE Last Admin: 12/27/16 13:33 Dose: 75 mls/hr Metronidazole (Flagyl) 500 mg in 100 mls @ 100 mls/hr IVPB Q8 ADRIANNE PRN Reason: Protocol Piperacillin Sod/Tazobactam Sod (Zosyn 3.375 In Ns 100ml) 100 mls @ 200 mls/hr IVPB Q6 ADRIANNE PRN Reason: Protocol Stop: 12/28/16 00:29 Morphine Sulfate (Morphine) 2 mg IVP Q4H PRN PRN Reason: Pain, moderate (4-7) Physical Exam - Constitutional Appears: Toxic, No Acute Distress - Head Exam Head Exam: NORMAL INSPECTION - Eye Exam Eye Exam: Normal appearance - ENT Exam ENT Exam: absent: Mucous Membranes Moist (dry) - Neck Exam Additional comments: scar from CEA - Respiratory Exam Respiratory Exam: Clear to Auscultation Bilateral, NORMAL BREATHING PATTERN. absent: Accessory Muscle Use, Respiratory Distress - Cardiovascular Exam Cardiovascular Exam: REGULAR RHYTHM. absent: Bradycardia, Tachycardia Additional comments: pacemaker - GI/Abdominal Exam GI & Abdominal Exam: Distended, Guarding (voluntary), Soft, Tenderness ( diffusely TTP). absent: Rebound, Rigid - Rectal Exam Rectal Exam: absent: Black Stool, Bloody Stool, Hemorrhoids Additional comments: 11x4cm area induration, erythema, warmth erythema extends into perineal area fluctuance palpated along L gluteal cleft firmness palpated along L rectal wall. R rectal wall soft. no hemorrhoids/fissures palpated - Extremities Exam Extremities exam: Positive for: normal inspection - Neurological Exam Neurological exam: Alert, Oriented x3 - Psychiatric Exam Psychiatric exam: Normal Affect, Normal Mood - Skin Skin Exam: Dry, Intact, Warm Results - Vital Signs Recent Vital Signs: Last Vital Signs Temp 97.8 F 12/27/16 09:54 Pulse 61 12/27/16 12:10 Resp 18 12/27/16 12:10 BP 109/63 12/27/16 12:10 Pulse Ox 100 12/27/16 12:10 - Labs Result Diagrams: 12/27/16 10:10 12/27/16 10:10 - Imaging and Cardiology CT scan - abdomen Status: Image reviewed by me, Report reviewed by me Assessment & Plan - Assessment and Plan (Free Text) Assessment: 76 y/o M w/ ischiorectal abscess - NPO, IVF - IV Zosyn, Flagyl - Pain management - Zofran prn nausea - OR @3pm for I&D of abscess Pt discussed w/ Dr. Shyam Cat DO PGY1 <Jh Howe - Last Filed: 01/01/17 11:02> Meds - Medications Medications: Current Medications Acetaminophen (Tylenol 650mg/20.3ml Solution Ud) 650 mg GT Q4H PRN PRN Reason: Fever >100.4 F Albuterol/Ipratropium (Duoneb 3 Mg/0.5 Mg (3 Ml) Ud) 3 ml IH Q2H PRN PRN Reason: Shortness of Breath Last Admin: 12/29/16 23:47 Dose: 3 ml Aspirin (Aspirin Chewable) 81 mg PO DAILY [facility] Last Admin: 12/30/16 10:00 Dose: Not Given Heparin Sodium (Porcine) (Heparin) 5,000 units SC Q8 [facility] Last Admin: 12/30/16 05:12 Dose: 5,000 units Hydrochlorothiazide (Microzide) 12.5 mg GT DAILY [facility] Last Admin: 01/01/17 09:31 Dose: 12.5 mg Linezolid (Zyvox 600mg/300ml D5w) 600 mg in 300 mls @ 200 mls/hr IVPB Q12 ADRIANNE PRN Reason: Protocol Stop: 01/03/17 22:01 Last Admin: 01/01/17 09:44 Dose: 200 mls/hr Meropenem 1g/NS 100mL IVPB (Meropenem 1g/Ns 100ml Ivpb) 1 gm in 100 mls @ 100 mls/hr IVPB Q12 [facility] PRN Reason: Protocol Stop: 01/07/17 22:01 Last Admin: 01/01/17 09:32 Dose: 100 mls/hr Sodium Chloride (Sodium Chloride 0.9%) 1,000 mls @ 50 mls/hr IV .Q20H [facility] Last Admin: 01/01/17 08:22 Dose: 50 mls/hr Losartan Potassium (Cozaar) 100 mg GT DAILY [facility] Last Admin: 01/01/17 09:31 Dose: 100 mg Morphine Sulfate (Morphine) 2 mg IVP Q4H PRN PRN Reason: Pain, moderate (4-7) Last Admin: 01/01/17 10:04 Dose: 2 mg Ondansetron HCl (Zofran Inj) 4 mg IVP Q4H PRN PRN Reason: Nausea/Vomiting Last Admin: 12/30/16 10:42 Dose: 4 mg Pantoprazole Sodium (Protonix Inj) 40 mg IVP Q12 [facility] Last Admin: 01/01/17 09:32 Dose: 40 mg Results - Vital Signs Recent Vital Signs: Last Vital Signs Temp 98.7 F 01/01/17 05:47 Pulse 62 01/01/17 05:47 Resp 19 01/01/17 05:47 BP 133/52 L 01/01/17 05:47 Pulse Ox 98 01/01/17 05:47 - Labs Result Diagrams: 01/01/17 06:00 01/01/17 06:00 Labs: Laboratory Results - last 24 hr 01/01/17 01/01/17 06:00 06:00 WBC 14.7 H RBC 3.68 Hgb 11.2 L Hct 34.0 L MCV 92.4 MCH 30.4 MCHC 32.9 RDW 14.5 Plt Count 436 MPV 10.2 Sodium 147 Potassium 4.0 Chloride 116 H Carbon Dioxide 23 Anion Gap 12 BUN 43 H Creatinine 1.5 H Est GFR ( Amer) 55 Est GFR (Non-Af Amer) 46 Random Glucose 129 H Calcium 8.0 L Total Bilirubin 0.6 AST 75 H ALT 53 Alkaline Phosphatase 106 Total Protein 5.6 L Albumin 2.2 L Globulin 3.3 Albumin/Globulin Ratio 0.7 L Assessment & Plan - Assessment and Plan (Free Text) Assessment: Dx Severe sepsis-acute ischiorectal abscess/severe cardiomyopathy Rx Emergency Surgery Consult done under my direct supervision Sydney Howe MD FACS
[2016-12-27 14:17] LABS: VENOUS BLOOD GAS BASE EXCESS -1.8 mmol/L (0.0-2.0); VENOUS BLOOD PH 7.32 (7.32-7.43)
[2016-12-27] MEDS ORDERED: Bupivacaine 0.5% Inj(30mL) ONE (14:33)
[2016-12-27] MEDS ORDERED: Vancomycin 1gm in NS 250ml 1 GM/250 ML BAG IVPB STA (14:42)
[2016-12-27] MEDS ORDERED: Magnesium Sulfate 2 GM in Sodium Chloride 0.9% 100 ML IVPB ONE (14:55)
[2016-12-27] MEDS ORDERED: Lidocaine 2% Jelly (Uro-Jet) ONE (15:07)
[2016-12-27] MEDS ORDERED: Midazolam 2 MG/2 ML VIAL ONE (15:16)
[2016-12-27] MEDS ORDERED: Propofol 10 mg/ml Inj (20 ML) ONE (15:16)
--- NOTE | 2016-12-27 15:16 | CON ---
DATE: 12/27/2016 This is a 76-year-old gentleman who presented with 2-week history of perianal pain. The pain was getting progressively worse. It was sharp. It was not radiating anywhere else. It was not associated with nausea or vomiting. However, today he was nauseated x 1 but never vomiting. The patient reports occasional chills, but no fever, no sweating. No shortness of breath, no chest pain. No alleviating or aggravating factors. PAST MEDICAL HISTORY: Hypertension, diabetes, prostatic cancer, aortic insufficiency, pacemaker, CHF. ALLERGIES: NKDA. FAMILY HISTORY: Noncontributory. SOCIAL HISTORY: The patient is an ex-smoker. No alcohol or illicit drug abuse. REVIEW OF SYSTEMS: Review of 12-organ system, other than mentioned in history of present illness, is negative. PHYSICAL EXAMINATION: VITAL SIGNS: Blood pressure 115/48, however, occasionally down to 80 systolic; heart rate 61, respiratory rate 17, oxygen saturation 97%. HEAD AND NECK: Atraumatic. LUNGS: Clear to auscultation bilaterally. HEART: Regular rate and rhythm. S1, S2 normal. ABDOMEN: Soft, mildly tender diffusely, but no peritoneal signs. Obese, mildly distended. SKIN: Moist. There is an indurated and erythematous mass palpated on left buttock mass. MUSCULOSKELETAL: No C/C/E. NEUROLOGIC: The patient moves all extremities spontaneously. PSYCHIATRIC: The patient is alert and oriented, in mild distress due to pain. LABORATORY DATA: WBC 25.9, hemoglobin 13.5, platelet count 381. Sodium 134, potassium 3.6, chloride 95, carbon dioxide 22, BUN 57, creatinine 2.3, glucose 161. AST 67, ALT 43. Lactic acid 2.7, rising up from 2. INR 1.16. MEDICATIONS AT HOME: CoQ10, Avalide, Nexium, Colace, vitamin D, Lipitor, aspirin. MEDICATIONS IN THE HOSPITAL: Lipitor, vitamin D, Flagyl, morphine, Zofran, Protonix, Zosyn. CAT scan of the abdomen and pelvis revealed extensive perirectal and perianal abscess on the left extending into the left gluteal region. Chest x-ray: No acute pulmonary disease. Pacemaker normal leads. ASSESSMENT AND PLAN: This is a 76-year-old gentleman with severe sepsis secondary to perirectal abscess with multiorgan dysfunction syndrome. Will proceed with antibiotics, septic workup including blood and urine culture, procalcitonin level, ID consult. IV fluid resuscitation. Will trend lactic acid and procalcitonin. The patient is going to OR by Dr. Howe for I and D. We will continue to target euvolemia, euglycemia, normothermia and oxygen saturation more than 90%. ccm time 40 min Christofer Prabhakar MD cc: [id number] TT: 12/27/2016 15:15:38 Confirmation # [id number] Dictation # [id number] milana DRAKE
[2016-12-27] MEDS ORDERED: HYDROmorphone 0.5 mg/0.5 ml ISec IVP PRN (15:45)
--- NOTE | 2016-12-27 15:47 | PCM.SURG1 ---
Surgeon's Initial Post Op Note - Surgeon's Notes Surgeon: Dr. Howe Embroiderer: Dr. Cat PGY1 Type of Anesthesia: General Mask Pre-Operative Diagnosis: ischiorectal abscess Operative Findings: see dictation Post-Operative Diagnosis: same Operation Performed: Incision and drainage of ischiorectal abscess Specimen/Specimens Removed: fluid culture Estimated Blood Loss: EBL {In ML}: 10 Post-Op Condition: Good Date of Surgery/Procedure: 12/27/16 Time of Surgery/Procedure: 15:15
--- NOTE | 2016-12-27 16:18 | CARD ---
APPROVED REPORT EKG Measurement Heart [id number] <Conclusion> Electronic ventricular pacemaker
[2016-12-27] MEDS ORDERED: Sodium Chloride 0.9% 1,000 ML IV STA ×2 (19:34→19:35)
[2016-12-27] MEDS: Piperacillin/Tazobact 3.375 gm 100 ML IVPB SCH (19:45)
[2016-12-27] MEDS: metroNIDAZOLE IV 500 mg/100 ml 500 MG/100 ML BAG IVPB SCH (19:48)
--- NOTE | 2016-12-27 20:04 | CON ---
DATE: 12/27/2016 REASON FOR CONSULTATION: Preop evaluation and risk stratification for possible rectal abscess draina ge, history of coronary artery disease. BRIEF CLINICAL HISTORY: This is a 76-year-old male with past medical history significant for coronar y artery disease status post PTCA of the circumflex 07/[address] Spencer Francois. Repeat catheterizatio n in 03/16/2014, patent stent PTCA site. Status post pacemaker 02/20/2014 and negative stress test 0 03/01/2015. Status post left carotid artery endarterectomy, off Plavix, who came in with complaint of constipation. Found to be rectal abscess requiring to go to the OR. So, cardiology consult was yamileth led for preoperative evaluation and risk stratification. The patient was seen in the ER, but ____ sa id patient another ____ patient had code STEMI so consult was dictated later. Though on verbal, melany ent was cleared on telephone and vice president of engineering taking care of the patient was notified that patie nt was cleared to go to the OR. PAST HISTORY: Significant for coronary artery disease, hypertension, hyperlipidemia, peripheral papo rial disease, sick sinus syndrome, status post permanent pacemaker. PREVIOUS CARDIAC WORKUP: As follows: The patient has a history of PTCA of circumflex 07/[address] Spencer Francois. Repeat catheterization by Dr. Spencer Francois 03/26/2014, patent stent. Status post permane nt pacemaker 02/20/2014, single chamber [employer]. History of carotid artery endarterectomy 07/2016 at [place], left carotid artery endarterectomy. Most recent stress test 03/01/2015 essent ially negative for ischemia. Mild MR, TR and AR on echo. Most recent MUGA scan was done, ejection f raction 56% dated 03/17/2015. Moderate aortic regurgitation. IRAIS normal on 10/26/2016. REVIEW OF SYSTEMS: As per HPI. CURRENT MEDICATIONS: The patient is taking Nexium 40 mg, Lipitor 20 mg daily, aspirin 81 mg and Aval venancio 300 mg/12.5, which is combination irbesartan and hydrochlorothiazide. ALLERGIES: No known drug allergies. REVIEW OF SYSTEMS: A 14-point review of systems negative except as per HPI. PHYSICAL EXAMINATION: As follows: VITAL SIGNS: Afebrile, heart rate 67, blood pressure 122/49. Height of the patient is 5 feet 9 inch es and weight of the patient 210, body mass index 31 kg/m2. HEENT: PERRLA. Extraocular muscles intact. NECK: Supple. No carotid bruits. No thyromegaly. CHEST: Clear to auscultation. HEART: S1, S2 regular. ABDOMEN: Soft. EXTREMITIES: Clubbing and cyanosis negative. LABORATORY DATA: WBC 25.9, hemoglobin 13.5, hematocrit 39.1, platelet count 381. Chemistry shows so dium 134, potassium 3.6, chloride 95, carbon dioxide 22, anion gap of ____, creatinine 2.3. Troponin 0.03. IMPRESSION: Rectal abscess requiring surgical intervention and drainage, history of coronary artery disease, stent 07/2013 in circumflex, off Plavix. Last catheterization 03/26/2014, patent stent. Re cent stress test 03/01/2015 was negative, mitral regurgitation, tricuspid regurgitation, moderate aor tic regurgitation. Peripheral arterial disease, status post left carotid artery endarterectomy 03/01. Recent MUGA scan, ejection fraction 56%, 03/17/2015. IRAIS recently normal. RECOMMENDATION: The patient is okay to go from cardiology point of view. No absolute contraindicati on for surgery. We will follow with you. Thank you, Dr. Orantes, for providing us the opportunity in taking care of the patient. We will fol low with you. We will get lipid profile, TSH, and hemoglobin A1c in the morning. Gale Mora MD cc: [id number] TT: 12/27/2016 20:04:02 Confirmation # [id number] Dictation # [id number] sn
[2016-12-27 20:07] LABS: VENOUS BLOOD PH 7.36 (7.32-7.43)
[2016-12-27] MEDS: Morphine 2 mg/ml ISec IVP PRN (20:10)
[2016-12-27 20:39] LABS: HEMATOCRIT 32.4 % (42.0-52.0); MEAN CELL VOLUME 88.5 fL (80.0-105.0); MEAN CORPUSCULAR HEMOGLOBIN 30.6 pg (25.0-35.0); MEAN CORPUSCULAR HGB CONC 34.6 g/dl (31.0-37.0); RED CELL DISTRIBUTION WIDTH 13.1 % (11.5-14.5); WHITE BLOOD COUNT 19.5 10^3/ul (4.5-11.0)
[2016-12-27 20:40] LABS: CALCIUM 7.6 mg/dL (8.4-10.5); POTASSIUM 3.8 mmol/L (3.6-5.0)
[2016-12-28] MEDS ORDERED: Sodium Chloride 0.9% 1,000 ML IV SCH (08:02)
[2016-12-28] MEDS ORDERED: Sodium Chloride 0.9% 1,000 ML IV STA (08:02)
--- NOTE | 2016-12-28 15:05 | PN ---
DATE: 12/28/2016 The patient is afebrile (temperature 100.2) and had 2 episodes of blood pressure below 90 yesterday, treated with fluid boluses (2.5 L). This morning, his hemoglobin is 10.3 and his white count is 17. No additional testing was performed and the patient is without chest pain, shortness of breath and i s markedly improved over the perianal area in terms of pain at this time. He was able to take some l iquids by mouth and will progress through a diet and start on MiraLax when our computer system comes back into functioning. At this point in time, he will remain in the intensive care unit hopefully fo r 24 more hours when the packing will be removed. This dictation will be electronically signed without being read. Jh Howe MD cc: [phone] TT: 12/28/2016 11:50:19 Confirmation # [id number] Dictation # [id number] tn
--- NOTE | 2016-12-28 15:05 | OP ---
PROCEDURE DATE: 12/27/2016 SURGEON: Jh Howe MD. GREEN CHAIN MARKER: Flory Cat DO, PGY-1. RN NEONATAL ICU: Dr. El. ANESTHESIA: General - mask - Marcaine 0.5-12 mL. PREOPERATIVE DIAGNOSES: 1. Rectal abscess. 2. Prostate carcinoma. 3. Hypertensive coronary artery disease. POSTOPERATIVE DIAGNOSES: 1. Rectal abscess. 2. Prostate carcinoma. 3. Hypertensive coronary artery disease. 4. Supralevator ischiorectal abscess. PROCEDURE: 12/27/16: 1. Incision and drainage of a supralevator ischiorectal abscess. 2. Insertion of a 14-Maori Duncan catheter (Coude). OPERATIVE INDICATION: The patient is a 76-year-old male with a 1-week history of progressi ve worsening constipation, having been seen in the Emergency Room 2 days prior to his admission and g iven a Fleet enema, and still having no response. He was developing severe pain over this past week. On the day of surgery, he was noted to have a 26,000 white count, a mild temperature, tachycardia, and a bulging left buttock in the region of the anus. CAT scanning demonstrates a very large gas-teresa led cavity indicating and ischiorectal abscess. The patient has had his prostate operated on robotic ally, and has significant trouble urinating more so since he has had this rectal problem. He has a p acemaker and has had stenting to his heart. Risks, benefits, alternatives, and their anticipated outcomes were discussed with the patient, and he signs the informed consent for incision and drainage with anesthesia. The patient will also have a catheter placed anticipating stenosis from the prostatic surgery. OPERATIVE NOTE: The patient is brought from the Emergency Room to the operating room, identified by his wrist band and undergoes timeout procedure. He has been loaded with parenteral antibiotics (Zosy n and Flagyl) and given intravenous hydration. He is placed on the table in a supine manner, undergoes the induction of general - mask anesthesia, a nd is placed in lithotomy position. The buttock area is now electrically clipped, and needle aspirat ion of the abscess cavity is encountered and found to be extremely deep to the skin using an #18-gaug e 1-1/2 inch needle. This fluid was then submitted for culture aerobically and anaerobically. While the area is being prepped, a Duncan catheter is inserted (#14 Coude), and the patient has a uret hral stenosis without any evidence of higher obstruction at the prostatic level. The area lateral and bulging is infiltrated with bupivacaine, incised radially from the anus outward, and a cruciate incision made by the operating surgeon. Hemostasis is contained with cautery, and the wire stripping machine operator's index finger inserted, and loculations broke n up, and the abscess cavity fully drained and found to extend up alongside the rectum and beginning to travel around the rectum (horseshoe abscess). The wound is lavaged with multi injections of saline solution and packed with 1 inch iodoform gauze, and large ABD dressings are employed. The patient is awakened. The mask is removed, and he is brought to the recovery room in a satisfacto ry condition. Sponge, instrument, and suture count were verified as correct at the end of the proced ure. Estimated blood loss during this procedure was less than 30 mL. This dictation will be electronically signed without being read. The front office medical assistant was present throughout the procedure from beginning to end and was very influe ntial in helping with the drainage of the abscess and insertion of the Duncan catheter. Jh Howe MD cc: [phone] TT: 12/28/2016 11:09:10 jn
--- NOTE | 2016-12-28 15:06 | CON ---
DATE: 12/28/2016 INFECTIOUS DISEASE CONSULTATION The patient is in CCU 129, bed 1, [facility]. The patient was seen earlier this morning. REASON FOR CONSULTATION: Perirectal abscess. HISTORY OF PRESENT ILLNESS: This is a 76-year-old male with a past medical history of obesity and hy pertension who came in complaining of 3-4 day history of worsening pain in the perirectal area with a ssociated bloody discharge on occasions, especially with bowel movement, but there is no note of bloo dy diarrhea. The patient did develop subjective fevers and chills, and had generalized weakness, the refore, presented to the Emergency Room. Once the patient was discovered with a perirectal abscess, surgery was called, and drainage was done yesterday, and cultures were sent from the perirectal absce ss. Currently, the patient is comfortable in bed, not in distress. He is denying fever or chills current ly. He has no nausea, no vomiting, no abdominal pain, no chest pain, no shortness of breath, no coug h, no colds, no sore throat, no diarrhea, no dysuria. No joint or muscle aches. No dysphagia. REVIEW OF SYSTEMS: As per history of present illness. PAST MEDICAL HISTORY: As per history of present illness. FAMILY MEDICAL HISTORY: Noncontributory. PERSONAL AND SOCIAL HISTORY: The patient has had no recent travel outside of [place] in the past 3 months. The patient denies alcohol abuse or illicit drug use. ALLERGIES: The patient does not have any known allergies to antibiotics. PHYSICAL EXAMINATION: VITAL SIGNS: The patient currently is afebrile, blood pressure 130/78, respiratory rate 20, heart ra te of 84. HEAD AND NECK: Normocephalic, atraumatic. LUNGS: Decreased breath sounds bilaterally. No rales noted. HEART: S1 and S2 are normal. ABDOMEN: Soft, nontender, nondistended. PERIRECTAL: There are dressings in place, which appeared to be dry currently. LABORATORY DATA: Unfortunately, we are unable to review the patient's current labs because the compu ter systems are down. CURRENT MEDICATIONS: The patient is currently on Zyvox and Zosyn. ASSESSMENT: This is a 76-year-old male with past medical history of hypertension, obesity, coming in with a perirectal abscess, status post incision and drainage by surgery, postop day #1. PLAN: We have started the patient on Zyvox and Zosyn pending wound cultures and blood cultures, the wound cultures coming from the perirectal abscess. We will follow up further surgical recommendation s for the site of the perirectal abscess, and we may be able to tailor and narrow down the antibiotic s depending on the culture results. Aroldo Billy M.D. cc: [id number] TT: 12/28/2016 14:19:05 Confirmation # [id number] Dictation # [id number] jn
--- NOTE | 2016-12-28 15:06 | PN ---
DATE: 12/28/2016 REASON FOR CONSULTATION AND FOLLOWUP: Preop evaluation, risk stratification, postop followup, status post drainage of rectal abscess. BRIEF CLINICAL HISTORY: A 76-year-old male with a past medical history significant for coronary papo ry disease status post PTCA of circumflex in 2012, repeat cardiac catheterization patent stent, recen t stress test in 2014 was negative, status post left carotid artery endarterectomy, status post perma nent pacemaker. Yesterday, admitted with a complaint of constipation, found to be large rectal absce ss, status post drainage. Now patient was hypotensive, responded to IV fluids. Denies any chest raysa n, shortness of breath, any palpitation. PHYSICAL EXAMINATION: VITAL SIGNS: Temperature afebrile, heart rate 80, blood pressure 130/80. HEENT: PERRLA. Extraocular muscles intact. NECK: Supple. No carotid bruits. No thyromegaly. CHEST: Clear to auscultation. HEART: S1, S2 regular. ABDOMEN: Soft. EXTREMITIES: Clubbing, cyanosis negative. BLOOD WORKUP: Pending, computer system is down. IMPRESSION: Status post drainage of rectal abscess, hypotension which improved with IV fluid, mejias ry artery disease status post percutaneous transluminal coronary angioplasty of circumflex in the pas t 2012, status post repeat catheterization, patent stent, status post permanent pacemaker in 2013, mi tral regurgitation, tricuspid regurgitation, aortic regurgitation, status post left carotid artery en darterectomy. RECOMMENDATION: Continue IV fluid, broad spectrum antibiotic. Further recommendation cardiova scular status is stable. We will follow with you. Thank you, Dr. Orantes, for providing us the opportunity in taking care of the patient. We will fol low the lab when the lab is available as the [employer] system is down. Gale Mora MD cc: [phone] TT: 12/28/2016 14:16:38 Confirmation # [id number] Dictation # [id number] en
--- NOTE | 2016-12-28 21:00 | CP.PCM.PN ---
Subjective - Date & Time of Evaluation Date of Evaluation: 12/28/16 Time of Evaluation: 07:10 - Subjective Subjective: Medicine progress note for Dr Orantes and Dr Sharpe service. Patient is s/p I&D of the rectal abscess day 1. Patient had low grade fever overnight. Patient also was mildly hypotensive in the 90s. Patient otherwise with no acute events. Patient currently c/o discomfort and pain around the rectal region. Patient also c/o inability to defecate and abdominal bloating. Patient denies cp, sob, headache, or dizziness. Objective - Vital Signs/Intake and Output Vital Signs (last 24 hours): Temp Pulse Resp BP Pulse Ox 98.3 F 60 28 H 111/45 L 96 12/27/16 21:00 12/28/16 15:20 12/28/16 15:20 12/28/16 15:00 12/28/16 15:20 - Medications Medications: Current Medications Aspirin (Aspirin Chewable) 81 mg PO DAILY [facility] Heparin Sodium (Porcine) (Heparin) 5,000 units SC Q8 [facility] Hydrochlorothiazide (Microzide) 12.5 mg PO DAILY [facility] Metronidazole (Flagyl) 500 mg in 100 mls @ 100 mls/hr IVPB Q8 [facility] PRN Reason: Protocol Last Admin: 12/27/16 19:48 Dose: 100 mls/hr Piperacillin Sod/Tazobactam Sod (Zosyn 3.375 In Ns 100ml) 100 mls @ 200 mls/hr IVPB Q6 [facility] PRN Reason: Protocol Stop: 01/03/17 18:01 Last Admin: 12/27/16 19:45 Dose: 200 mls/hr Sodium Chloride (Sodium Chloride 0.9%) 1,000 mls @ 100 mls/hr IV .Q10H [facility]NE Last Admin: 12/27/16 19:45 Dose: 100 mls/hr Linezolid (Zyvox 600mg/300ml D5w) 600 mg in 300 mls @ 200 mls/hr IVPB Q12 [facility] PRN Reason: Protocol Stop: 01/03/17 22:01 Sodium Chloride (Sodium Chloride 0.9%) 1,000 mls @ 100 mls/hr IV .Q10H [facility] Losartan Potassium (Cozaar) 100 mg PO DAILY [facility] Morphine Sulfate (Morphine) 2 mg IVP Q4H PRN PRN Reason: Pain, moderate (4-7) Last Admin: 12/27/16 20:10 Dose: 2 mg Ondansetron HCl (Zofran Inj) 4 mg IVP Q4H PRN PRN Reason: Nausea/Vomiting Ondansetron HCl (Zofran Inj) 4 mg IVP ONCE PRN PRN Reason: Nausea/Vomiting Pantoprazole Sodium (Protonix Inj) 40 mg IVP DAILY [facility] Last Admin: 12/27/16 19:46 Dose: 40 mg - Labs Labs: 12/27/16 20:28 12/27/16 20:28 PT 12.5 Seconds (9.9-11.8) H 12/27/16 10:10 INR 1.16 (0.93-1.08) H 12/27/16 10:10 APTT 34.9 Seconds (23.7-30.8) H 12/27/16 19:00 - Constitutional Appears: No Acute Distress - Head Exam Head Exam: ATRAUMATIC, NORMAL INSPECTION, NORMOCEPHALIC - Eye Exam Eye Exam: EOMI, Normal appearance, PERRL. absent: Scleral icterus - ENT Exam ENT Exam: Mucous Membranes Moist - Neck Exam Neck Exam: Normal Inspection - Respiratory Exam Respiratory Exam: Clear to Ausculation Bilateral, NORMAL BREATHING PATTERN. absent: Rales, Wheezes, Respiratory Distress, Stridor - Cardiovascular Exam Cardiovascular Exam: REGULAR RHYTHM, +S1, +S2. absent: Murmur - GI/Abdominal Exam GI & Abdominal Exam: Distended, Firm, Tenderness (diffuse), Normal Bowel Sounds. absent: Guarding, Rigid - Extremities Exam Extremities Exam: absent: Pedal Edema - Neurological Exam Neurological Exam: Alert, Awake, Oriented x3 - Psychiatric Exam Psychiatric exam: Normal Affect, Normal Mood - Skin Skin Exam: Dry, Normal Color, Warm Additional comments: The anal region with clean dressing. 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 Plan: 1) Sepsis 2nd to perirectal abscess - s/p surgery day 1 - Blood and urine cx, so far no growth. - on zosyn and zyvox. - ID and surgery following 2) Perirectal abscess s/p surgery - surgical incision management as per surgerical team - liquid diet. 3) DENISE - bun/creat trending down - continue IVF 4) Transaminitis - trended down 5) CAD w/ stents - htn meds on hold - cardiology following 6) DVT and GI prophylaxis: protonix and heparin sc. Patient seen, examined, discussed with Dr Orantes.
--- NOTE | 2016-12-28 22:27 | RAD ---
HISTORY: Rule out ileus, free air COMPARISON: No prior. FINDINGS: BOWEL: There is no obvious free air. However free air is difficult to exclude on a supine film. There is no evidence of ileus or obstruction BONES: Normal. OTHER FINDINGS: None. IMPRESSION: There is no obvious free air. However free air is difficult to exclude on a supine film. There is no evidence of ileus or obstruction
[2016-12-28] MEDS: metroNIDAZOLE IV 500 mg/100 ml 500 MG/100 ML BAG IVPB SCH (22:35)
[2016-12-28] MEDS: Linezolid 600 mg in D5W 300 ml 600 MG/300 ML BAG IVPB SCH (22:36)
[2016-12-28] MEDS: Morphine 2 mg/ml ISec IVP PRN (22:52)
[2016-12-29] MEDS: Piperacillin/Tazobact 3.375 gm 100 ML IVPB SCH ×5 (00:42→23:47)
[2016-12-29] MEDS: metroNIDAZOLE IV 500 mg/100 ml 500 MG/100 ML BAG IVPB SCH (05:29)
--- NOTE | 2016-12-29 06:34 | CP.PCM.PN ---
<Ashlyn Moore - Last Filed: 12/29/16 19:19> Subjective - Date & Time of Evaluation Date of Evaluation: 12/29/16 Time of Evaluation: 07:00 - Subjective Subjective: Medicine progress note for Dr Orantes and Dr Sharpe Patient in no acute distress. Patient c/o abdominal discomfort. Patient states he feels bloated and tried to defecate but was not able to to. Patient otherwise denies nausea or vomiting. Admits to flatus. Denies cp, admits to sob and wheezing. Objective - Vital Signs/Intake and Output Vital Signs (last 24 hours): Temp Pulse Resp BP Pulse Ox 97.6 F 60 28 H 111/45 L 96 12/29/16 04:00 12/28/16 15:20 12/28/16 15:20 12/28/16 15:00 12/28/16 15:20 Intake and Output: 12/28/16 12/29/16 18:59 06:59 Intake Total 2000 Output Total 500 Balance 1500 - Medications Medications: Current Medications Aspirin (Aspirin Chewable) 81 mg PO DAILY [facility] Heparin Sodium (Porcine) (Heparin) 5,000 units SC Q8 [facility] Last Admin: 12/29/16 05:28 Dose: 5,000 units Hydrochlorothiazide (Microzide) 12.5 mg PO DAILY [facility] Metronidazole (Flagyl) 500 mg in 100 mls @ 100 mls/hr IVPB Q8 [facility] PRN Reason: Protocol Last Admin: 12/29/16 05:29 Dose: 100 mls/hr Piperacillin Sod/Tazobactam Sod (Zosyn 3.375 In Ns 100ml) 100 mls @ 200 mls/hr IVPB Q6 [facility] PRN Reason: Protocol Stop: 01/03/17 18:01 Last Admin: 12/29/16 05:28 Dose: 200 mls/hr Sodium Chloride (Sodium Chloride 0.9%) 1,000 mls @ 100 mls/hr IV .Q10H [facility] Last Admin: 12/27/16 19:45 Dose: 100 mls/hr Linezolid (Zyvox 600mg/300ml D5w) 600 mg in 300 mls @ 200 mls/hr IVPB Q12 [facility] PRN Reason: Protocol Stop: 01/03/17 22:01 Last Admin: 12/28/16 22:36 Dose: 200 mls/hr Sodium Chloride (Sodium Chloride 0.9%) 1,000 mls @ 100 mls/hr IV .Q10H [facility] Last Admin: 12/29/16 05:00 Dose: 100 mls/hr Losartan Potassium (Cozaar) 100 mg PO DAILY [facility] Morphine Sulfate (Morphine) 2 mg IVP Q4H PRN PRN Reason: Pain, moderate (4-7) Last Admin: 12/28/16 22:52 Dose: 2 mg Ondansetron HCl (Zofran Inj) 4 mg IVP Q4H PRN PRN Reason: Nausea/Vomiting Ondansetron HCl (Zofran Inj) 4 mg IVP ONCE PRN PRN Reason: Nausea/Vomiting Pantoprazole Sodium (Protonix Inj) 40 mg IVP DAILY [facility] Last Admin: 12/27/16 19:46 Dose: 40 mg Polyethylene Glycol (Miralax) 17 gm PO BID [facility] - Labs Labs: 12/27/16 20:28 12/27/16 20:28 PT 12.5 Seconds (9.9-11.8) H 12/27/16 10:10 INR 1.16 (0.93-1.08) H 12/27/16 10:10 APTT 34.9 Seconds (23.7-30.8) H 12/27/16 19:00 Assessment and Plan - Assessment and Plan (Free Text) Assessment: Patient is a 76 y/o M w/ PMH of CAD with stents in the past, AR, h/o prostate ca s/p robotic reconstruction, Gerd, hld, 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 Plan: 1) Sepsis 2nd to perirectal abscess - s/p surgery day 2 - Blood cx no growth after 48 hrs. - on zosyn and zyvox. - ID and surgery following 2) Kaia-rectal abscess s/p surgery - surgical incision management as per surgical team - liquid diet. - Miralax giving for constipation as per surgery. - Monitor for bowel movement. 3) DENISE - bun/creat continue to trending down - continue IVF 4) Transaminitis- resolved 5) CAD w/ stents - htn meds on hold - cardiology following 6) DVT and GI prophylaxis: protonix and heparin sc. Patient seen, examined, discussed with Dr Sharpe. <Woody Sharpe - Last Filed: 01/14/17 19:02> Objective - Vital Signs/Intake and Output Vital Signs (last 24 hours): Temp Pulse Resp BP Pulse Ox 98.4 F 60 16 153/55 H 97 01/14/17 18:00 01/14/17 18:00 01/14/17 18:00 01/14/17 18:00 01/14/17 05:43 Intake and Output: 01/14/17 01/15/17 18:59 06:59 Intake Total 240 Output Total 400 Balance -160 - Medications Medications: Current Medications Acetaminophen (Tylenol 650mg/20.3ml Solution Ud) 650 mg GT Q4H PRN PRN Reason: Fever >100.4 F Albuterol/Ipratropium (Duoneb 3 Mg/0.5 Mg (3 Ml) Ud) 3 ml IH Q2H PRN PRN Reason: Shortness of Breath Last Admin: 01/13/17 08:32 Dose: 3 ml Alprazolam (Xanax) 0.5 mg PO TID PRN; Protocol PRN Reason: Anxiety Last Admin: 01/14/17 01:14 Dose: 0.5 mg Aspirin (Aspirin Chewable) 81 mg PO DAILY [facility] Last Admin: 01/14/17 09:50 Dose: 81 mg Diphenhydramine HCl (Benadryl) 25 mg PO HS PRN PRN Reason: Insomnia Last Admin: 01/13/17 21:30 Dose: 25 mg Ferrous Sulfate (Feosol) 324 mg PO TID [facility] Last Admin: 01/14/17 17:51 Dose: 324 mg Heparin Sodium (Porcine) (Heparin) 5,000 units SC Q8 [facility] Last Admin: 01/10/17 05:44 Dose: 5,000 units Hydralazine HCl (Apresoline) 10 mg IVP Q6 PRN PRN Reason: FOR SBP>160 and Distolic>100 Hydrochlorothiazide (Hydrodiuril) 25 mg GT DAILY [facility] Last Admin: 01/14/17 09:50 Dose: 25 mg Hydromorphone HCl (Dilaudid) 1 mg IVP Q6 PRN PRN Reason: Pain, moderate (4-7) Last Admin: 01/14/17 18:32 Dose: 1 mg Cefazolin Sodium (Ancef 1gm In Ns) 1 gm in 100 mls @ 100 mls/hr IVPB Q8 [facility] PRN Reason: Protocol Last Admin: 01/14/17 14:36 Dose: 100 mls/hr Metronidazole (Flagyl) 500 mg in 100 mls @ 100 mls/hr IVPB Q8 [facility] PRN Reason: Protocol Last Admin: 01/14/17 14:36 Dose: 100 mls/hr Ketorolac Tromethamine (Toradol) 30 mg IVP Q6 PRN PRN Reason: Pain, moderate (4-7) Last Admin: 01/13/17 13:49 Dose: 30 mg Losartan Potassium (Cozaar) 100 mg GT DAILY [facility] Last Admin: 01/14/17 09:50 Dose: 100 mg Multivitamins (Thera Tab) 1 tab PO DAILY [facility] Last Admin: 01/14/17 09:50 Dose: 1 tab Nystatin (Nystop Topical Powder) 0 gm TOP TID [facility] Last Admin: 01/14/17 17:52 Dose: 1 appl Ondansetron HCl (Zofran Inj) 4 mg IVP Q4H PRN PRN Reason: Nausea/Vomiting Last Admin: 01/06/17 21:58 Dose: 4 mg Pantoprazole Sodium (Protonix Inj) 40 mg IVP Q12 [facility] Last Admin: 01/14/17 10:01 Dose: 40 mg Povidone Iodine (Betadine 10% Topical Soln) 10 ml TOP QID PRN PRN Reason: Soiled packing Simethicone (Mylicon Chew Tab) 80 mg PO HS [facility] Last Admin: 01/14/17 17:52 Dose: 80 mg Tamsulosin HCl (Flomax) 0.4 mg PO DAILY [facility] Last Admin: 01/14/17 09:50 Dose: 0.4 mg - Labs Labs: 01/14/17 06:25 01/14/17 06:25 PT 12.6 Seconds (9.9-11.8) H 01/10/17 12:30 INR 1.17 (0.93-1.08) H 01/10/17 12:30 APTT 33.4 Seconds (23.7-30.8) H 01/10/17 12:30 Attending/Attestation - Attestation I have personally seen and examined this patient.: Yes I have fully participated in the care of the patient.: Yes I have reviewed all pertinent clinical information, including history, physical exam and plan: Yes Notes (Text): 01/14/17 19:02 Medical record note made by the resident after discussion with my direction and input after the patient was personally seen and examined by me. I have reviewed the chart and agree that the record accurately reflects by personal performance of the history, physical exam, data review, and medical decision-making, in the course for the patient. I have also personally directed the plan of care.
[2016-12-29 07:41] LABS: ADD MANUAL DIFF? NO
[2016-12-29 07:53] LABS: BASO # 0.03 K/mm3 (0.0-2.0); BASO % 0.2 % (0.0-3.0); EOS # 0.1 (0.0-0.7); EOS % 0.8 % (1.5-5.0); GRAN # 11.29 (1.4-6.5); HEMATOCRIT 31.6 % (42.0-52.0); LYMPH # 1.2 (1.2-3.4); LYMPH % 8.7 % (22.0-35.0); MEAN CELL VOLUME 87.3 fL (80.0-105.0); MEAN CORPUSCULAR HEMOGLOBIN 30.4 pg (25.0-35.0); MEAN CORPUSCULAR HGB CONC 34.8 g/dl (31.0-37.0); MEAN PLATELET VOLUME 10.5 fl (7.0-11.0); MONO # 0.7 (0.1-0.6); MONO % 5.3 % (1.0-6.0); PLATELET COUNT 373 10^3/uL (120.0-450.0); RED CELL DISTRIBUTION WIDTH 13.6 % (11.5-14.5); WHITE BLOOD COUNT 13.3 10^3/ul (4.5-11.0)
[2016-12-29 08:04] LABS: ALB/GLOB RATIO 0.7 (1.1-1.8); BILIRUBIN,TOTAL 1.2 mg/dL (0.2-1.3); CALCIUM 7.1 mg/dL (8.4-10.5); INR 1.23 (0.93-1.08); POTASSIUM 3.3 mmol/L (3.6-5.0); TOTAL PROTEIN 5.5 g/dL (5.8-8.3)
[2016-12-29] MEDS ORDERED: Sodium Chloride 0.9% 1,000 ML IV SCH ×2 (08:12→21:59)
[2016-12-29] MEDS ORDERED: Potassium Chloride 20 mEq ER Tab PO SCH ×2 (09:00)
[2016-12-29] MEDS: Linezolid 600 mg in D5W 300 ml 600 MG/300 ML BAG IVPB SCH ×2 (10:04→21:47)
[2016-12-29] MEDS: Morphine 2 mg/ml ISec IVP PRN ×2 (10:13→21:16)
--- NOTE | 2016-12-29 10:16 | PN ---
DATE: 12/29/2016 REASON FOR CONSULTATION AND FOLLOWUP: Status post large rectal abscess, drained, history of coronary artery disease, pacemaker. BRIEF CLINICAL HISTORY: This is a 76-year-old male with past medical history significant for coronar y artery disease, status post PTCA of circumflex 07/2013, repeat catheterization 03/16/2014 patent harpreet nt. The patient was being followed by Dr. Francois, now is being followed by me, is status post permanen t pacemaker 02/20/2014, negative stress test 03/01/2015. Admitted with rectal abscess, status post dra chapa, was getting IV fluid because of hypotension. Denies any chest pain, shortness of breath, any p alpitation. PHYSICAL EXAMINATION: VITAL SIGNS: Temperature afebrile, heart rate 60, blood pressure 132/59. HEENT: PERRLA. Extraocular muscles intact. NECK: Supple. No carotid bruits. No thyromegaly. CHEST: Clear to auscultation. HEART: S1, S2 regular. ABDOMEN: Soft. EXTREMITIES: Clubbing, cyanosis negative. BLOOD WORKUP: WBC 13.3, hemoglobin 11, hematocrit 31.6, platelet count 373. Chemistry shows sodium , potassium 3.3, chloride 108, carbon dioxide 18, anion gap of 12, BUN 55, creatinine 2. IMPRESSION: Acute kidney injury, rectal abscess, protein-calorie malnutrition which was not present on admission, it is moderate to severe, anemia, status post rectal abscess drained, history of mejias ry artery disease, status post percutaneous transluminal coronary angioplasty in 2012 circumflex, sta tus post permanent pacemaker. Repeat cardiac catheterization 2013, patent stent. Recent stress test 03/01/2015 was negative. Status post left carotid artery endarterectomy. Most recent MUGA scan 03/17 shows ejection fraction 58%. Normal ankle brachial indices 10/26/2016. RECOMMENDATION: The patient started third spacing because of protein calorie malnutrition. We will discontinue IV fluid, change to keep vein open. Continue broad spectrum antibiotic. Continue losart an as blood pressure is tolerated. It was held because patient had low blood pressure. We will davey sfer to [facility]. Thank you, Dr. Orantes, for providing us the opportunity in taking care of the patient. Gale Mora MD cc:Bowen Orantes MD [id number] TT: 12/29/2016 10:15:55 Confirmation # [id number] Dictation # [id number] en
[2016-12-29] MEDS: POLYETHYLENE GLYCOL 3350 17 GM/Dose PACKET PO SCH ×2 (10:18→17:50)
--- NOTE | 2016-12-29 10:52 | CP.PCM.PCO ---
Physician Communication Note - Physician Communication Note Physician Communication Note: Remove packing/Ileus persists/Leave bal in for now
[2016-12-29 11:14] LABS: POTASSIUM 3.6 mmol/L (3.6-5.0)
[2016-12-29] MEDS ORDERED: Albuterol-Ipratrop 3 mg / 0.5 (3 ml) UD ONE (11:14)
[2016-12-29] MEDS ORDERED: Albuterol-Ipratrop 3 mg / 0.5 (3 ml) UD IH ONE (11:43)
--- NOTE | 2016-12-29 11:59 | CP.PCM.PN ---
Subjective - Date & Time of Evaluation Date of Evaluation: 12/29/16 Time of Evaluation: 09:20 - Subjective Subjective: Still complaining of abdominal pain but a little better. Has not moved his bowels yet. No fevers overnight. Objective - Vital Signs/Intake and Output Vital Signs (last 24 hours): Temp Pulse Resp BP Pulse Ox 98.9 F 60 20 131/53 L 96 12/29/16 09:00 12/29/16 09:50 12/29/16 09:50 12/29/16 09:30 12/29/16 09:50 Intake and Output: 12/29/16 12/29/16 06:59 18:59 Intake Total 2000 Output Total 500 Balance 1500 - Medications Medications: Current Medications Aspirin (Aspirin Chewable) 81 mg PO DAILY [facility] Last Admin: 12/29/16 10:35 Dose: Not Given Heparin Sodium (Porcine) (Heparin) 5,000 units SC Q8 [facility] Last Admin: 12/29/16 10:36 Dose: Not Given Hydrochlorothiazide (Microzide) 12.5 mg PO DAILY [facility] Last Admin: 12/29/16 10:36 Dose: Not Given Piperacillin Sod/Tazobactam Sod (Zosyn 3.375 In Ns 100ml) 100 mls @ 200 mls/hr IVPB Q6 [facility] PRN Reason: Protocol Stop: 01/03/17 18:01 Last Admin: 12/29/16 05:28 Dose: 200 mls/hr Linezolid (Zyvox 600mg/300ml D5w) 600 mg in 300 mls @ 200 mls/hr IVPB Q12 [facility] PRN Reason: Protocol Stop: 01/03/17 22:01 Last Admin: 12/29/16 10:04 Dose: 200 mls/hr Sodium Chloride (Sodium Chloride 0.9%) 1,000 mls @ 10 mls/hr IV .Q24H [facility] Losartan Potassium (Cozaar) 100 mg PO DAILY [facility] Last Admin: 12/29/16 10:35 Dose: Not Given Morphine Sulfate (Morphine) 2 mg IVP Q4H PRN PRN Reason: Pain, moderate (4-7) Last Admin: 12/29/16 10:13 Dose: 2 mg Ondansetron HCl (Zofran Inj) 4 mg IVP Q4H PRN PRN Reason: Nausea/Vomiting Pantoprazole Sodium (Protonix Inj) 40 mg IVP DAILY [facility] Last Admin: 12/29/16 10:36 Dose: Not Given Polyethylene Glycol (Miralax) 17 gm PO BID [facility] Last Admin: 12/29/16 10:18 Dose: 17 gm - Labs Labs: 12/29/16 07:15 12/29/16 07:15 PT 13.3 Seconds (9.9-11.8) H 12/29/16 07:15 INR 1.23 (0.93-1.08) H 12/29/16 07:15 APTT 34.9 Seconds (23.7-30.8) H 12/27/16 19:00 - Constitutional Appears: Non-toxic, No Acute Distress - Head Exam Head Exam: NORMAL INSPECTION - ENT Exam ENT Exam: Mucous Membranes Moist - Neck Exam Neck Exam: absent: Lymphadenopathy, Meningismus - Respiratory Exam Respiratory Exam: Decreased Breath Sounds - Cardiovascular Exam Cardiovascular Exam: +S1, +S2 - GI/Abdominal Exam GI & Abdominal Exam: Soft. absent: Tenderness Assessment and Plan - Assessment and Plan (Free Text) Plan: Assessment Sepsis due to perirectal abscess S/P I and D POD #2, slowly improving CAD S/P PCI prostate ca s/p robotic reconstruction 6 years ago GERD dyslipidemia history of 3rd degree AV block s/p permanent pacemaker placement history of dilated cardiomyopathy HTN history of back surgery S/P carotid endarterectomy Plan Continue Zyvox and Zosyn (day 2) pending wound cx results; blood cx negative Will continue to trend WBC count and monitor clinically
--- NOTE | 2016-12-29 13:03 | CP.PCM.PN ---
Subjective - Date & Time of Evaluation Date of Evaluation: 12/29/16 Time of Evaluation: 07:00 - Subjective Subjective: General Surgery Progress Note for Sunny Henderson, PGY-1 Pt was seen and examined at bedside. Pt has complaints of abdominal discomfort. He states he has not had a bm however has been passing flatus, although it has been hard to pass. Pt denied fever, chills, n/v. Objective - Vital Signs/Intake and Output Vital Signs (last 24 hours): Temp Pulse Resp BP Pulse Ox 98.4 F 62 23 146/55 L 94 L 12/29/16 12:00 12/29/16 12:00 12/29/16 12:00 12/29/16 12:00 12/29/16 12:00 Intake and Output: 12/29/16 12/29/16 06:59 18:59 Intake Total 2000 Output Total 500 Balance 1500 - Medications Medications: Current Medications Aspirin (Aspirin Chewable) 81 mg PO DAILY [facility] Last Admin: 12/29/16 10:35 Dose: Not Given Heparin Sodium (Porcine) (Heparin) 5,000 units SC Q8 [facility] Last Admin: 12/29/16 10:36 Dose: Not Given Hydrochlorothiazide (Microzide) 12.5 mg PO DAILY [facility] Last Admin: 12/29/16 10:36 Dose: Not Given Piperacillin Sod/Tazobactam Sod (Zosyn 3.375 In Ns 100ml) 100 mls @ 200 mls/hr IVPB Q6 [facility] PRN Reason: Protocol Stop: 01/03/17 18:01 Last Admin: 12/29/16 05:28 Dose: 200 mls/hr Linezolid (Zyvox 600mg/300ml D5w) 600 mg in 300 mls @ 200 mls/hr IVPB Q12 [facility] PRN Reason: Protocol Stop: 01/03/17 22:01 Last Admin: 12/29/16 10:04 Dose: 200 mls/hr Sodium Chloride (Sodium Chloride 0.9%) 1,000 mls @ 150 mls/hr IV .Q6H40M [facility] Losartan Potassium (Cozaar) 100 mg PO DAILY [facility] Last Admin: 12/29/16 10:35 Dose: Not Given Morphine Sulfate (Morphine) 2 mg IVP Q4H PRN PRN Reason: Pain, moderate (4-7) Last Admin: 12/29/16 10:13 Dose: 2 mg Ondansetron HCl (Zofran Inj) 4 mg IVP Q4H PRN PRN Reason: Nausea/Vomiting Pantoprazole Sodium (Protonix Inj) 40 mg IVP DAILY [facility] Last Admin: 12/29/16 10:36 Dose: Not Given Polyethylene Glycol (Miralax) 17 gm PO BID [facility] Last Admin: 12/29/16 10:18 Dose: 17 gm - Labs Labs: 12/29/16 07:15 12/29/16 07:15 PT 13.3 Seconds (9.9-11.8) H 12/29/16 07:15 INR 1.23 (0.93-1.08) H 12/29/16 07:15 APTT 34.9 Seconds (23.7-30.8) H 12/27/16 19:00 - Constitutional Appears: No Acute Distress - Head Exam Head Exam: ATRAUMATIC, NORMAL INSPECTION, NORMOCEPHALIC - Eye Exam Eye Exam: EOMI, Normal appearance, PERRL Pupil Exam: NORMAL ACCOMODATION, PERRL - ENT Exam ENT Exam: Mucous Membranes Moist, Normal Exam - Respiratory Exam Respiratory Exam: Clear to Ausculation Bilateral, NORMAL BREATHING PATTERN - Cardiovascular Exam Cardiovascular Exam: REGULAR RHYTHM, +S1, +S2. absent: Murmur - GI/Abdominal Exam GI & Abdominal Exam: Distended, Tenderness, Normal Bowel Sounds - Extremities Exam Extremities Exam: Full ROM, Normal Capillary Refill, Normal Inspection. absent : Joint Swelling, Pedal Edema - Neurological Exam Neurological Exam: Alert, Awake, CN II-XII Intact, Oriented x3 - Psychiatric Exam Psychiatric exam: Normal Affect, Normal Mood - Skin Skin Exam: Dry, Intact, Normal Color, Warm Assessment and Plan - Assessment and Plan (Free Text) Assessment: 76 M w/ ischiorectal abscess s/p I&D POD#2 - CLD, IVF - IV Zosyn, Flagyl - Pain management - Packing removed today, dressings changed - Monitor uop, bal in place - Continue management as per ICU/primary team Seen reviewed and discussed with Attending Sunny Orellana, PGY-1
[2016-12-29] MEDS: Sodium Chloride 0.9% 1,000 ML IV SCH ×2 (15:04→20:38)
--- NOTE | 2016-12-29 15:55 | CP.CCUPN ---
<Arias Lim - Last Filed: 12/29/16 15:52> CCU Subjective - Physician Review Events Since Last Encounter (Free Text): 12/29/16 15:52 Arias Lim D.O. PGY-1, Internal Medicine Resident, ICU Progress Note 76 year old male with a PMH of CAD with stents placed in 2012, aortic regurgitation, hx of prostate CA s/p robotic resection, GERD, HTN, and HLD who presented to [facility] on 12/27/16 with complaints of rectal pain, found to have zaira-rectal abscess s/p I&D POD#2. Patient was seen and examined at bedside. Patient is doing much better today and states that he does still pain at his surgical site and in his abdomen. Otherwise patient denies any new symptoms. No overnight events. CCU Objective - Vital Signs / Intake & Output Vital Signs (Last 4 hours): Vital Signs Temp Pulse Resp BP Pulse Ox 12/29/16 13:30 60 53 H 162/82 H 97 12/29/16 13:20 61 45 H 96 12/29/16 13:10 60 50 H 96 12/29/16 13:00 60 41 H 141/108 H 95 12/29/16 12:50 60 26 H 94 L 12/29/16 12:40 60 30 H 95 12/29/16 12:30 60 35 H 145/54 L 94 L 12/29/16 12:20 61 22 95 12/29/16 12:10 62 95 12/29/16 12:00 98.4 F 60 18 146/55 L 95 Intake and Output (Last 8hrs): Intake & Output 12/29/16 12/29/16 12/29/16 06:59 14:59 22:59 Intake Total 2000 Output Total 500 Balance 1500 Weight 115.212 kg Intake: IV 1500 Left Antecubital 1500 Oral 500 Output: Urine 500 Urethral (Duncan) 500 Stool 0 Urine/Stool Mix 0 Other: Voiding Method Indwelling Catheter # Bowel Movements 0 - Physical Exam Head: Positive for: Atraumatic, Normocephalic Pupils: Positive for: PERRL Extroacular Muscles: Positive for: EOMI Conjunctiva: Positive for: Normal. Negative for: Injected, Icteric Ears: Positive for: Normal Mouth: Positive for: Moist Mucous Membranes, Normal Tounge, Normal Teeth Pharnyx: Positive for: Normal. Negative for: ERYTHEMA, EXUDATE Nose (External): Positive for: Atraumatic Neck: Positive for: Normal Range of Motion, Trachea Midline. Negative for: JVD , Lymphadenopathy Respiratory/Chest: Positive for: Clear to Auscultation, Good Air Exchange. Negative for: Accessory Muscle Use, Wheezes Cardiovascular: Positive for: Murmurs (diastolic, left sternal ), Normal S1, S2. Negative for: Rub, Gallop Abdomen: Positive for: Tenderness (mild, diffuse), Distention. Negative for: Normal Bowel Sounds (hyperactive) Rectal: Positive for: Other (malodorous, packed, large drained perirectal abscess) Back: Negative for: Midline Tenderness, Paraspinal Tenderness Upper Extremity: Positive for: Normal Inspection, Capillary Refill < 2s. Negative for: Cyanosis, Edema Lower Extremity: Positive for: Normal Inspection, Capillary Refill < 2 s. Negative for: Edema, CALF TENDERNESS Neurological: Positive for: GCS=15, CN II-XII Intact, Speech Normal, Motor Func Grossly Intact Skin: Positive for: Warm, Dry - Medications Active Medications: Active Medications Generic Name Dose Route Start Last Admin Trade Name Freq PRN Reason Stop Dose Admin Aspirin 81 mg 12/28/16 10:00 12/29/16 10:35 Aspirin Chewable PO Not Given DAILY [facility] Heparin Sodium (Porcine) 5,000 units 12/28/16 08:05 12/29/16 10:36 Heparin SC Not Given Q8 ADRIANNE Hydrochlorothiazide 12.5 mg 12/28/16 10:00 12/29/16 10:36 Microzide PO Not Given DAILY [facility]RI[facility]NE Piperacillin Sod/Tazobactam Sod 100 mls @ 200 mls/hr 12/27/16 18:00 12/29/16 13:00 Zosyn 3.375 In Ns 100ml IVPB 01/03/17 18:01 200 mls/hr Q6 ADRIANNE Administration Protocol Linezolid 600 mg in 300 mls @ 200 mls/hr 12/27/16 22:00 12/29/16 10:04 Zyvox 600mg/300ml D5w IVPB 01/03/17 22:01 200 mls/hr Q12 ADRIANNE Administration Protocol Sodium Chloride 1,000 mls @ 150 mls/hr 12/29/16 12:47 05/19/17 15:04 Sodium Chloride 0.9% IV 150 mls/hr .[id number] ADRIANNE Administration Losartan Potassium 100 mg 12/28/16 10:00 12/29/16 10:35 Cozaar PO Not Given DAILY [facility] Morphine Sulfate 2 mg 12/27/16 13:33 12/29/16 10:13 Morphine IVP 2 mg Q4H PRN Administration Pain, moderate (4-7) Ondansetron HCl 4 mg 12/27/16 14:16 Zofran Inj IVP Q4H PRN Nausea/Vomiting Pantoprazole Sodium 40 mg 12/27/16 14:30 12/29/16 10:36 Protonix Inj IVP Not Given DAILY [facility] Polyethylene Glycol 17 gm 12/29/16 10:00 12/29/16 10:18 Miralax PO 17 gm BID ADRIANNE Administration - Patient Studies Lab Studies: Lab Studies 12/29/16 12/29/16 12/29/16 Range/Units 07:15 07:15 07:15 WBC 13.3 H D (4.5-11.0) 10^3/ul RBC 3.62 (3.5-6.1) 10^6/uL Hgb 11.0 L (14.0-18.0) gm/dL Hct 31.6 L (42.0-52.0) % MCV 87.3 (80.0-105.0) fL MCH 30.4 (25.0-35.0) pg MCHC 34.8 (31.0-37.0) g/dl RDW 13.6 (11.5-14.5) % Plt Count 373 (120.0-450.0) 10^3/uL MPV 10.5 (7.0-11.0) fl Gran % 85.0 H (50.0-68.0) % Lymph % (Auto) 8.7 L (22.0-35.0) % [place] % (Auto) 5.3 (1.0-6.0) % Eos % (Auto) 0.8 L (1.5-5.0) % Baso % (Auto) 0.2 (0.0-3.0) % Gran # 11.29 H (1.4-6.5) Lymph # 1.2 (1.2-3.4) [place] # 0.7 H (0.1-0.6) Eos # 0.1 (0.0-0.7) Baso # 0.03 (0.0-2.0) K/mm3 PT (9.9-11.8) Seconds INR (0.93-1.08) Sodium 135 (132-148) mmol/L Potassium 3.3 L (3.6-5.0) mmol/L Chloride 108 (98-107) mmol/L Carbon Dioxide 18 L (21-33) mmol/L Anion Gap 12 (10-20) BUN 55 H (7-21) mg/dL Creatinine 2.0 H (0.5-1.4) mg/dL Est GFR ( Amer) 40 Est GFR (Non-Af Amer) 33 Random Glucose 133 H (70-110) mg/dL Hemoglobin A1c (4.2-6.5) % Lactic Acid 1.3 (0.7-2.1) mmol/L Calcium 7.1 L (8.4-10.5) mg/dL Total Bilirubin 1.2 (0.2-1.3) mg/dL AST 44 (15-59) U/L ALT 44 (7-56) U/L Alkaline Phosphatase 111 (38-133) U/L Total Protein 5.5 L (5.8-8.3) g/dL Albumin 2.3 L (3.0-4.8) g/dL Globulin 3.2 gm/dL Albumin/Globulin Ratio 0.7 L (1.1-1.8) TSH 3rd Generation (0.46-4.68) mIU/mL Hepatitis A IgM Ab (NEGATIVE) Hep Bs Antigen (NEGATIVE) Hep B Core IgM Ab (NEGATIVE) Hepatitis C Antibody (NEGATIVE) 12/29/16 12/29/16 12/29/16 Range/Units 07:15 07:15 07:15 WBC (4.5-11.0) 10^3/ul RBC (3.5-6.1) 10^6/uL Hgb (14.0-18.0) gm/dL Hct (42.0-52.0) % MCV (80.0-105.0) fL MCH (25.0-35.0) pg MCHC (31.0-37.0) g/dl RDW (11.5-14.5) % Plt Count (120.0-450.0) 10^3/uL MPV (7.0-11.0) fl Gran % (50.0-68.0) % Lymph % (Auto) (22.0-35.0) % [place] % (Auto) (1.0-6.0) % Eos % (Auto) (1.5-5.0) % Baso % (Auto) (0.0-3.0) % Gran # (1.4-6.5) Lymph # (1.2-3.4) [place] # (0.1-0.6) Eos # (0.0-0.7) Baso # (0.0-2.0) K/mm3 PT 13.3 H (9.9-11.8) Seconds INR 1.23 H (0.93-1.08) Sodium (132-148) mmol/L Potassium (3.6-5.0) mmol/L Chloride (98-107) mmol/L Carbon Dioxide (21-33) mmol/L Anion Gap (10-20) BUN (7-21) mg/dL Creatinine (0.5-1.4) mg/dL Est GFR ( Amer) Est GFR (Non-Af Amer) Random Glucose (70-110) mg/dL Hemoglobin A1c 6.4 (4.2-6.5) % Lactic Acid (0.7-2.1) mmol/L Calcium (8.4-10.5) mg/dL Total Bilirubin (0.2-1.3) mg/dL AST (15-59) U/L ALT (7-56) U/L Alkaline Phosphatase (38-133) U/L Total Protein (5.8-8.3) g/dL Albumin (3.0-4.8) g/dL Globulin gm/dL Albumin/Globulin Ratio (1.1-1.8) TSH 3rd Generation 1.60 (0.46-4.68) mIU/mL Hepatitis A IgM Ab (NEGATIVE) Hep Bs Antigen (NEGATIVE) Hep B Core IgM Ab (NEGATIVE) Hepatitis C Antibody (NEGATIVE) 12/28/16 12/28/16 12/28/16 Range/Units 15:00 09:48 07:00 WBC (4.5-11.0) 10^3/ul RBC (3.5-6.1) 10^6/uL Hgb (14.0-18.0) gm/dL Hct (42.0-52.0) % MCV (80.0-105.0) fL MCH (25.0-35.0) pg MCHC (31.0-37.0) g/dl RDW (11.5-14.5) % Plt Count (120.0-450.0) 10^3/uL MPV (7.0-11.0) fl Gran % (50.0-68.0) % Lymph % (Auto) (22.0-35.0) % [place] % (Auto) (1.0-6.0) % Eos % (Auto) (1.5-5.0) % Baso % (Auto) (0.0-3.0) % Gran # (1.4-6.5) Lymph # (1.2-3.4) [place] # (0.1-0.6) Eos # (0.0-0.7) Baso # (0.0-2.0) K/mm3 PT (9.9-11.8) Seconds INR (0.93-1.08) Sodium 135 (132-148) mmol/L Potassium 3.6 (3.6-5.0) mmol/L Chloride 105 (98-107) mmol/L Carbon Dioxide 18 L (21-33) mmol/L Anion Gap 16 (10-20) BUN 60 H (7-21) mg/dL Creatinine 2.2 H (0.5-1.4) mg/dL Est GFR ( Amer) 36 Est GFR (Non-Af Amer) 29 Random Glucose 139 H (70-110) mg/dL Hemoglobin A1c (4.2-6.5) % Lactic Acid 2.2 H 1.5 (0.7-2.1) mmol/L Calcium 7.0 L (8.4-10.5) mg/dL Total Bilirubin (0.2-1.3) mg/dL AST (15-59) U/L ALT (7-56) U/L Alkaline Phosphatase (38-133) U/L Total Protein (5.8-8.3) g/dL Albumin (3.0-4.8) g/dL Globulin gm/dL Albumin/Globulin Ratio (1.1-1.8) TSH 3rd Generation (0.46-4.68) mIU/mL Hepatitis A IgM Ab (NEGATIVE) Hep Bs Antigen (NEGATIVE) Hep B Core IgM Ab (NEGATIVE) Hepatitis C Antibody (NEGATIVE) 12/27/16 Range/Units 19:52 WBC (4.5-11.0) 10^3/ul RBC (3.5-6.1) 10^6/uL Hgb (14.0-18.0) gm/dL Hct (42.0-52.0) % MCV (80.0-105.0) fL MCH (25.0-35.0) pg MCHC (31.0-37.0) g/dl RDW (11.5-14.5) % Plt Count (120.0-450.0) 10^3/uL MPV (7.0-11.0) fl Gran % (50.0-68.0) % Lymph % (Auto) (22.0-35.0) % [place] % (Auto) (1.0-6.0) % Eos % (Auto) (1.5-5.0) % Baso % (Auto) (0.0-3.0) % Gran # (1.4-6.5) Lymph # (1.2-3.4) Sol[place] # (0.1-0.6) Eos # (0.0-0.7) Baso # (0.0-2.0) K/mm3 PT (9.9-11.8) Seconds INR (0.93-1.08) Sodium (132-148) mmol/L Potassium (3.6-5.0) mmol/L Chloride (98-107) mmol/L Carbon Dioxide (21-33) mmol/L Anion Gap (10-20) BUN (7-21) mg/dL Creatinine (0.5-1.4) mg/dL Est GFR ( Amer) Est GFR (Non-Af Amer) Random Glucose (70-110) mg/dL Hemoglobin A1c (4.2-6.5) % Lactic Acid (0.7-2.1) mmol/L Calcium (8.4-10.5) mg/dL Total Bilirubin (0.2-1.3) mg/dL AST (15-59) U/L ALT (7-56) U/L Alkaline Phosphatase (38-133) U/L Total Protein (5.8-8.3) g/dL Albumin (3.0-4.8) g/dL Globulin gm/dL Albumin/Globulin Ratio (1.1-1.8) TSH 3rd Generation (0.46-4.68) mIU/mL Hepatitis A IgM Ab Negative (NEGATIVE) Hep Bs Antigen Negative (NEGATIVE) Hep B Core IgM Ab Negative (NEGATIVE) Hepatitis C Antibody Reactive H (NEGATIVE) Laboratory Results - last 24 hr 12/27/16 12/28/16 12/28/16 19:52 07:00 09:48 WBC RBC Hgb Hct MCV MCH MCHC RDW Plt Count MPV Gran % Lymph % (Auto) Sol[place] % (Auto) Eos % (Auto) Baso % (Auto) Gran # Lymph # [place] # Eos # Baso # PT INR Sodium 135 Potassium 3.6 Chloride 105 Carbon Dioxide 18 L Anion Gap 16 BUN 60 H Creatinine 2.2 H Est GFR ( Amer) 36 Est GFR (Non-Af Amer) 29 Random Glucose 139 H Hemoglobin A1c Lactic Acid 1.5 Calcium 7.0 L Total Bilirubin AST ALT Alkaline Phosphatase Total Protein Albumin Globulin Albumin/Globulin Ratio TSH 3rd Generation Hepatitis A IgM Ab Negative Hep Bs Antigen Negative Hep B Core IgM Ab Negative Hepatitis C Antibody Reactive H 12/28/16 12/29/16 12/29/16 15:00 07:15 07:15 WBC RBC Hgb Hct MCV MCH MCHC RDW Plt Count MPV Gran % Lymph % (Auto) [place] % (Auto) Eos % (Auto) Baso % (Auto) Gran # Lymph # Sol[place] # Eos # Baso # PT 13.3 H INR 1.23 H Sodium Potassium Chloride Carbon Dioxide Anion Gap BUN Creatinine Est GFR ( Amer) Est GFR (Non-Af Amer) Random Glucose Hemoglobin A1c 6.4 Lactic Acid 2.2 H Calcium Total Bilirubin AST ALT Alkaline Phosphatase Total Protein Albumin Globulin Albumin/Globulin Ratio TSH 3rd Generation Hepatitis A IgM Ab Hep Bs Antigen Hep B Core IgM Ab Hepatitis C Antibody 12/29/16 12/29/16 12/29/16 07:15 07:15 07:15 WBC 13.3 H D RBC 3.62 Hgb 11.0 L Hct 31.6 L MCV 87.3 MCH 30.4 MCHC 34.8 RDW 13.6 Plt Count 373 MPV 10.5 Gran % 85.0 H Lymph % (Auto) 8.7 L [place] % (Auto) 5.3 Eos % (Auto) 0.8 L Baso % (Auto) 0.2 Gran # 11.29 H Lymph # 1.2 Solano # 0.7 H Eos # 0.1 Baso # 0.03 PT INR Sodium 135 Potassium 3.3 L Chloride 108 Carbon Dioxide 18 L Anion Gap 12 BUN 55 H Creatinine 2.0 H Est GFR ( Amer) 40 Est GFR (Non-Af Amer) 33 Random Glucose 133 H Hemoglobin A1c Lactic Acid Calcium 7.1 L Total Bilirubin 1.2 AST 44 ALT 44 Alkaline Phosphatase 111 Total Protein 5.5 L Albumin 2.3 L Globulin 3.2 Albumin/Globulin Ratio 0.7 L TSH 3rd Generation 1.60 Hepatitis A IgM Ab Hep Bs Antigen Hep B Core IgM Ab Hepatitis C Antibody 12/29/16 07:15 WBC RBC Hgb Hct MCV MCH MCHC RDW Plt Count MPV Gran % Lymph % (Auto) [place] % (Auto) Eos % (Auto) Baso % (Auto) Gran # Lymph # [place] # Eos # Baso # PT INR Sodium Potassium Chloride Carbon Dioxide Anion Gap BUN Creatinine Est GFR ( Amer) Est GFR (Non-Af Amer) Random Glucose Hemoglobin A1c Lactic Acid 1.3 Calcium Total Bilirubin AST ALT Alkaline Phosphatase Total Protein Albumin Globulin Albumin/Globulin Ratio TSH 3rd Generation Hepatitis A IgM Ab Hep Bs Antigen Hep B Core IgM Ab Hepatitis C Antibody Fingerstick Blood Sugar Results: 161 Critical Care Progress Note - Prophylaxis GI Prophylaxis GI: PPI - Prophylaxis DVT Prophylaxis DVT: Heparin SQ - Nutrition Nutrition: Nutrition Category Date Time Status Liquid Diet [DIET] Diets 12/27/16 Dinner Ordered Assessment/Plan - Assessment and Plan (Free Text) Assessment: 76 year old male with a PMH of CAD with stents placed in 2012, aortic regurgitation, hx of prostate CA s/p robotic resection, GERD, HTN, and HLD who presented to [facility] on 12/27/16 with complaints of rectal pain, found to have zaira-rectal abscess s/p I&D POD#2. Plan: Neurological AAOx4, nonfocal, protecting airway Cardiovascular CAD w/ stents, cardio following, continue ASA HTN holding losartan and HCTZ till tomorrow as BP improves Hemodynamically stable so far today, monitoring IS given Pulmonary Satting well on RA, maintain O2sat >90% Renal/ Fluids / Electrolytes 2000/500 DENISE improving, increasing IV NS to 150 No electrolyte imbalances Continue euvolemia K repleted, recheck CMP AM GI Cont liquid diet per GI Started miralax per surgery team Passing flatus Infectious disease Perirectal abscess I&D POD#2, surgery following, packing to be removed today, PRN morphine in place Continue linezolid, zosyn day 3 Afebrile and leukocytosis downtrending, lactate decreased ID following, appreciate recs Hematology/Oncology Hgb stable Hemodynamically improved Endocrine Maintain euglycemia Prophylaxis PPI/SCDs/heparin sc Patient was seen and examined and case was discussed at length with attending physician. - Date & Time Date: 12/29/16 Time: 07:00 <Sol Morgan MD H - Last Filed: 12/29/16 16:49> CCU Objective - Vital Signs / Intake & Output Vital Signs (Last 4 hours): Vital Signs Temp Pulse Resp BP Pulse Ox 12/29/16 16:00 102 F H 60 18 151/66 H 95 12/29/16 13:30 60 53 H 162/82 H 97 12/29/16 13:20 61 45 H 96 12/29/16 13:10 60 50 H 96 12/29/16 13:00 60 41 H 141/108 H 95 12/29/16 12:50 60 26 H 94 L Intake and Output (Last 8hrs): Intake & Output 12/29/16 12/29/16 12/29/16 06:59 14:59 22:59 Intake Total 2000 Output Total 500 Balance 1500 Weight 254 lb Intake: IV 1500 Left Antecubital 1500 Oral 500 Output: Urine 500 Urethral (Duncan) 500 Stool 0 Urine/Stool Mix 0 Other: Voiding Method Indwelling Catheter # Bowel Movements 0 - Medications Active Medications: Active Medications Generic Name Dose Route Start Last Admin Trade Name Freq PRN Reason Stop Dose Admin Acetaminophen 650 mg 12/29/16 16:09 Tylenol 325mg Tab PO Q4H PRN Fever >100.4 F Aspirin 81 mg 12/28/16 10:00 12/29/16 10:35 Aspirin Chewable PO Not Given DAILY [facility] Heparin Sodium (Porcine) 5,000 units 12/28/16 08:05 12/29/16 10:36 Heparin SC Not Given Q8 [facility]NE Hydrochlorothiazide 12.5 mg 12/28/16 10:00 12/29/16 10:36 Microzide PO Not Given DAILY [facility] Piperacillin Sod/Tazobactam Sod 100 mls @ 200 mls/hr 12/27/16 18:00 12/29/16 13:00 Zosyn 3.375 In Ns 100ml IVPB 01/03/17 18:01 200 mls/hr Q6 [facility]RIANNE Administration Protocol Linezolid 600 mg in 300 mls @ 200 mls/hr 12/27/16 22:00 12/29/16 10:04 Zyvox 600mg/300ml D5w IVPB 01/03/17 22:01 200 mls/hr Q12 ADRIANNE Administration Protocol Sodium Chloride 1,000 mls @ 150 mls/hr 12/29/16 12:47 12/29/16 15:04 Sodium Chloride 0.9% IV 150 mls/hr .Q6H40M [facility] Administration Losartan Potassium 100 mg 12/28/16 10:00 12/29/16 10:35 Cozaar PO Not Given DAILY [facility] Morphine Sulfate 2 mg 12/27/16 13:33 12/29/16 10:13 Morphine IVP 2 mg Q4H PRN Administration Pain, moderate (4-7) Ondansetron HCl 4 mg 12/27/16 14:16 Zofran Inj IVP Q4H PRN Nausea/Vomiting Pantoprazole Sodium 40 mg 12/27/16 14:30 12/29/16 10:36 Protonix Inj IVP Not Given DAILY [facility] Polyethylene Glycol 17 gm 12/29/16 10:00 12/29/16 10:18 Miralax PO 17 gm BID ADRIANNE Administration Potassium Chloride 40 meq 12/29/16 16:30 Potassium Chloride Oral Soln PO 12/30/16 00:31 Q4H ADRIANNE - Patient Studies Lab Studies: Lab Studies 12/29/16 12/29/16 12/29/16 Range/Units 07:15 07:15 07:15 WBC 13.3 H D (4.5-11.0) 10^3/ul RBC 3.62 (3.5-6.1) 10^6/uL Hgb 11.0 L (14.0-18.0) gm/dL Hct 31.6 L (42.0-52.0) % MCV 87.3 (80.0-105.0) fL MCH 30.4 (25.0-35.0) pg MCHC 34.8 (31.0-37.0) g/dl RDW 13.6 (11.5-14.5) % Plt Count 373 (120.0-450.0) 10^3/uL MPV 10.5 (7.0-11.0) fl Gran % 85.0 H (50.0-68.0) % Lymph % (Auto) 8.7 L (22.0-35.0) % [place] % (Auto) 5.3 (1.0-6.0) % Eos % (Auto) 0.8 L (1.5-5.0) % Baso % (Auto) 0.2 (0.0-3.0) % Gran # 11.29 H (1.4-6.5) Lymph # 1.2 (1.2-3.4) [place] # 0.7 H (0.1-0.6) Eos # 0.1 (0.0-0.7) Baso # 0.03 (0.0-2.0) K/mm3 PT (9.9-11.8) Seconds INR (0.93-1.08) Sodium 135 (132-148) mmol/L Potassium 3.3 L (3.6-5.0) mmol/L Chloride 108 (98-107) mmol/L Carbon Dioxide 18 L (21-33) mmol/L Anion Gap 12 (10-20) BUN 55 H (7-21) mg/dL Creatinine 2.0 H (0.5-1.4) mg/dL Est GFR ( Amer) 40 Est GFR (Non-Af Amer) 33 Random Glucose 133 H (70-110) mg/dL Hemoglobin A1c (4.2-6.5) % Lactic Acid 1.3 (0.7-2.1) mmol/L Calcium 7.1 L (8.4-10.5) mg/dL Total Bilirubin 1.2 (0.2-1.3) mg/dL AST 44 (15-59) U/L ALT 44 (7-56) U/L Alkaline Phosphatase 111 (38-133) U/L Total Protein 5.5 L (5.8-8.3) g/dL Albumin 2.3 L (3.0-4.8) g/dL Globulin 3.2 gm/dL Albumin/Globulin Ratio 0.7 L (1.1-1.8) TSH 3rd Generation (0.46-4.68) mIU/mL Hepatitis A IgM Ab (NEGATIVE) Hep Bs Antigen (NEGATIVE) Hep B Core IgM Ab (NEGATIVE) Hepatitis C Antibody (NEGATIVE) 12/29/16 12/29/16 12/29/16 Range/Units 07:15 07:15 07:15 WBC (4.5-11.0) 10^3/ul RBC (3.5-6.1) 10^6/uL Hgb (14.0-18.0) gm/dL Hct (42.0-52.0) % MCV (80.0-105.0) fL MCH (25.0-35.0) pg MCHC (31.0-37.0) g/dl RDW (11.5-14.5) % Plt Count (120.0-450.0) 10^3/uL MPV (7.0-11.0) fl Gran % (50.0-68.0) % Lymph % (Auto) (22.0-35.0) % [place] % (Auto) (1.0-6.0) % Eos % (Auto) (1.5-5.0) % Baso % (Auto) (0.0-3.0) % Gran # (1.4-6.5) Lymph # (1.2-3.4) [place] # (0.1-0.6) Eos # (0.0-0.7) Baso # (0.0-2.0) K/mm3 PT 13.3 H (9.9-11.8) Seconds INR 1.23 H (0.93-1.08) Sodium (132-148) mmol/L Potassium (3.6-5.0) mmol/L Chloride (98-107) mmol/L Carbon Dioxide (21-33) mmol/L Anion Gap (10-20) BUN (7-21) mg/dL Creatinine (0.5-1.4) mg/dL Est GFR ( Amer) Est GFR (Non-Af Amer) Random Glucose (70-110) mg/dL Hemoglobin A1c 6.4 (4.2-6.5) % Lactic Acid (0.7-2.1) mmol/L Calcium (8.4-10.5) mg/dL Total Bilirubin (0.2-1.3) mg/dL AST (15-59) U/L ALT (7-56) U/L Alkaline Phosphatase (38-133) U/L Total Protein (5.8-8.3) g/dL Albumin (3.0-4.8) g/dL Globulin gm/dL Albumin/Globulin Ratio (1.1-1.8) TSH 3rd Generation 1.60 (0.46-4.68) mIU/mL Hepatitis A IgM Ab (NEGATIVE) Hep Bs Antigen (NEGATIVE) Hep B Core IgM Ab (NEGATIVE) Hepatitis C Antibody (NEGATIVE) 12/28/16 12/28/16 12/28/16 Range/Units 15:00 09:48 07:00 WBC (4.5-11.0) 10^3/ul RBC (3.5-6.1) 10^6/uL Hgb (14.0-18.0) gm/dL Hct (42.0-52.0) % MCV (80.0-105.0) fL MCH (25.0-35.0) pg MCHC (31.0-37.0) g/dl RDW (11.5-14.5) % Plt Count (120.0-450.0) 10^3/uL MPV (7.0-11.0) fl Gran % (50.0-68.0) % Lymph % (Auto) (22.0-35.0) % [place] % (Auto) (1.0-6.0) % Eos % (Auto) (1.5-5.0) % Baso % (Auto) (0.0-3.0) % Gran # (1.4-6.5) Lymph # (1.2-3.4) [place] # (0.1-0.6) Eos # (0.0-0.7) Baso # (0.0-2.0) K/mm3 PT (9.9-11.8) Seconds INR (0.93-1.08) Sodium 135 (132-148) mmol/L Potassium 3.6 (3.6-5.0) mmol/L Chloride 105 (98-107) mmol/L Carbon Dioxide 18 L (21-33) mmol/L Anion Gap 16 (10-20) BUN 60 H (7-21) mg/dL Creatinine 2.2 H (0.5-1.4) mg/dL Est GFR ( Amer) 36 Est GFR (Non-Af Amer) 29 Random Glucose 139 H (70-110) mg/dL Hemoglobin A1c (4.2-6.5) % Lactic Acid 2.2 H 1.5 (0.7-2.1) mmol/L Calcium 7.0 L (8.4-10.5) mg/dL Total Bilirubin (0.2-1.3) mg/dL AST (15-59) U/L ALT (7-56) U/L Alkaline Phosphatase (38-133) U/L Total Protein (5.8-8.3) g/dL Albumin (3.0-4.8) g/dL Globulin gm/dL Albumin/Globulin Ratio (1.1-1.8) TSH 3rd Generation (0.46-4.68) mIU/mL Hepatitis A IgM Ab (NEGATIVE) Hep Bs Antigen (NEGATIVE) Hep B Core IgM Ab (NEGATIVE) Hepatitis C Antibody (NEGATIVE) 12/27/16 Range/Units 19:52 WBC (4.5-11.0) 10^3/ul RBC (3.5-6.1) 10^6/uL Hgb (14.0-18.0) gm/dL Hct (42.0-52.0) % MCV (80.0-105.0) fL MCH (25.0-35.0) pg MCHC (31.0-37.0) g/dl RDW (11.5-14.5) % Plt Count (120.0-450.0) 10^3/uL MPV (7.0-11.0) fl Gran % (50.0-68.0) % Lymph % (Auto) (22.0-35.0) % [place] % (Auto) (1.0-6.0) % Eos % (Auto) (1.5-5.0) % Baso % (Auto) (0.0-3.0) % Gran # (1.4-6.5) Lymph # (1.2-3.4) [place] # (0.1-0.6) Eos # (0.0-0.7) Baso # (0.0-2.0) K/mm3 PT (9.9-11.8) Seconds INR (0.93-1.08) Sodium (132-148) mmol/L Potassium (3.6-5.0) mmol/L Chloride (98-107) mmol/L Carbon Dioxide (21-33) mmol/L Anion Gap (10-20) BUN (7-21) mg/dL Creatinine (0.5-1.4) mg/dL Est GFR ( Amer) Est GFR (Non-Af Amer) Random Glucose (70-110) mg/dL Hemoglobin A1c (4.2-6.5) % Lactic Acid (0.7-2.1) mmol/L Calcium (8.4-10.5) mg/dL Total Bilirubin (0.2-1.3) mg/dL AST (15-59) U/L ALT (7-56) U/L Alkaline Phosphatase (38-133) U/L Total Protein (5.8-8.3) g/dL Albumin (3.0-4.8) g/dL Globulin gm/dL Albumin/Globulin Ratio (1.1-1.8) TSH 3rd Generation (0.46-4.68) mIU/mL Hepatitis A IgM Ab Negative (NEGATIVE) Hep Bs Antigen Negative (NEGATIVE) Hep B Core IgM Ab Negative (NEGATIVE) Hepatitis C Antibody Reactive H (NEGATIVE) Laboratory Results - last 24 hr 12/27/16 12/28/16 12/28/16 19:52 07:00 09:48 WBC RBC Hgb Hct MCV MCH MCHC RDW Plt Count MPV Gran % Lymph % (Auto) [place] % (Auto) Eos % (Auto) Baso % (Auto) Gran # Lymph # [place] # Eos # Baso # PT INR Sodium 135 Potassium 3.6 Chloride 105 Carbon Dioxide 18 L Anion Gap 16 BUN 60 H Creatinine 2.2 H Est GFR ( Amer) 36 Est GFR (Non-Af Amer) 29 Random Glucose 139 H Hemoglobin A1c Lactic Acid 1.5 Calcium 7.0 L Total Bilirubin AST ALT Alkaline Phosphatase Total Protein Albumin Globulin Albumin/Globulin Ratio TSH 3rd Generation Hepatitis A IgM Ab Negative Hep Bs Antigen Negative Hep B Core IgM Ab Negative Hepatitis C Antibody Reactive H 12/28/16 12/29/16 12/29/16 15:00 07:15 07:15 WBC RBC Hgb Hct MCV MCH MCHC RDW Plt Count MPV Gran % Lymph % (Auto) [place] % (Auto) Eos % (Auto) Baso % (Auto) Gran # Lymph # [place] # Eos # Baso # PT 13.3 H INR 1.23 H Sodium Potassium Chloride Carbon Dioxide Anion Gap BUN Creatinine Est GFR ( Amer) Est GFR (Non-Af Amer) Random Glucose Hemoglobin A1c 6.4 Lactic Acid 2.2 H Calcium Total Bilirubin AST ALT Alkaline Phosphatase Total Protein Albumin Globulin Albumin/Globulin Ratio [facility] 3rd Generation Hepatitis A IgM Ab Hep Bs Antigen Hep B Core IgM Ab Hepatitis C Antibody 12/29/16 12/29/16 12/29/16 07:15 07:15 07:15 WBC 13.3 H D RBC 3.62 Hgb 11.0 L Hct 31.6 L MCV 87.3 MCH 30.4 MCHC 34.8 RDW 13.6 Plt Count 373 MPV 10.5 Gran % 85.0 H Lymph % (Auto) 8.7 L [place] % (Auto) 5.3 Eos % (Auto) 0.8 L Baso % (Auto) 0.2 Gran # 11.29 H Lymph # 1.2 [place] # 0.7 H Eos # 0.1 Baso # 0.03 PT INR Sodium 135 Potassium 3.3 L Chloride 108 Carbon Dioxide 18 L Anion Gap 12 BUN 55 H Creatinine 2.0 H Est GFR ( Amer) 40 Est GFR (Non-Af Amer) 33 Random Glucose 133 H Hemoglobin A1c Lactic Acid Calcium 7.1 L Total Bilirubin 1.2 AST 44 ALT 44 Alkaline Phosphatase 111 Total Protein 5.5 L Albumin 2.3 L Globulin 3.2 Albumin/Globulin Ratio 0.7 L TSH 3rd Generation 1.60 Hepatitis A IgM Ab Hep Bs Antigen Hep B Core IgM Ab Hepatitis C Antibody 12/29/16 07:15 WBC RBC Hgb Hct MCV MCH MCHC RDW Plt Count MPV Gran % Lymph % (Auto) [place] % (Auto) Eos % (Auto) Baso % (Auto) Gran # Lymph # [place] # Eos # Baso # PT INR Sodium Potassium Chloride Carbon Dioxide Anion Gap BUN Creatinine Est GFR ( Amer) Est GFR (Non-Af Amer) Random Glucose Hemoglobin A1c Lactic Acid 1.3 Calcium Total Bilirubin AST ALT Alkaline Phosphatase Total Protein Albumin Globulin Albumin/Globulin Ratio TSH 3rd Generation Hepatitis A IgM Ab Hep Bs Antigen Hep B Core IgM Ab Hepatitis C Antibody Critical Care Progress Note - Nutrition Nutrition: Nutrition Category Date Time Status Liquid Diet [DIET] Diets 12/27/16 Dinner Ordered Attending/Attestation - Attestation I have personally seen and examined this patient.: Yes I have fully participated in the care of the patient.: Yes I have reviewed all pertinent clinical information: Yes Notes (Text): 12/29/16 16:46 76 y/o M s/p Per-rectal abscess drainage and I&D On empiric abx, cx pending. Packing changed. Febrile x 1, Blood cx drawn . On Empiric abx w/ ID following. Vitals are WNL. Clinically improving and following commands . stable for transfer to Med/ surg floor. case d/w surgical residents. cc time 65 min
[2016-12-29] MEDS: Potassium Chloride 40 mEq/30 ml LIQ UD PO SCH ×3 (16:57→23:57)
[2016-12-29 16:58] LABS: HEMATOCRIT 29.9 % (42.0-52.0); MEAN CELL VOLUME 88.5 fL (80.0-105.0); MEAN CORPUSCULAR HEMOGLOBIN 30.5 pg (25.0-35.0); MEAN CORPUSCULAR HGB CONC 34.4 g/dl (31.0-37.0); MEAN PLATELET VOLUME 10.9 fl (7.0-11.0); RED CELL DISTRIBUTION WIDTH 13.3 % (11.5-14.5); WHITE BLOOD COUNT 17.6 10^3/ul (4.5-11.0)
[2016-12-29] MEDS ORDERED: SODIUM CHLORIDE IVPB ONE ×2 (22:51→23:09)
[2016-12-29] MEDS ORDERED: POTASSIUM PHOSPHATE IVPB ONE ×2 (22:51→23:09)
[2016-12-29] MEDS: Albuterol-Ipratrop 3 mg / 0.5 (3 ml) UD IH PRN (23:47)
[2016-12-30] MEDS: Piperacillin/Tazobact 3.375 gm 100 ML IVPB SCH ×4 (05:12→23:44)
--- NOTE | 2016-12-30 06:19 | CP.PCM.PN ---
Subjective - Date & Time of Evaluation Date of Evaluation: 12/30/16 Time of Evaluation: 07:00 - Subjective Subjective: Pt s/e at bedside this AM. Patient was passing gas but had ileus with severe abdominal distention yesterday and received miralax BID yesterday. After the evening dose patient had a large episode of diarrhea but is still very distended and complained of severe cramping pain throughout the night only moderately improved with morphine. Patient also received Kdur around the same time last evening which made him feel very nauseated. Patient also had SOB per nursing so IVF was put on hold by medicine team. This AM patient states that his cramping pain is not improved and he has a lot of belching but denies nausea and vomiting this AM. Patient also reports feeling sweaty but denies fevers/chills. When we turned him to change his dressing he had multiple copious green liquid BM's. Objective - Vital Signs/Intake and Output Vital Signs (last 24 hours): Temp Pulse Resp BP Pulse Ox 98.5 F 60 20 139/70 98 12/30/16 05:53 12/30/16 05:53 12/30/16 05:53 12/30/16 05:53 12/30/16 05:53 Intake and Output: 12/29/16 12/30/16 18:59 06:59 Intake Total 1350 1500 Output Total 701 Balance 649 1500 - Medications Medications: Current Medications Acetaminophen (Tylenol 325mg Tab) 650 mg PO Q4H PRN PRN Reason: Fever >100.4 F Last Admin: 12/29/16 16:54 Dose: 650 mg Albuterol/Ipratropium (Duoneb 3 Mg/0.5 Mg (3 Ml) Ud) 3 ml IH Q2H PRN PRN Reason: Shortness of Breath Last Admin: 12/29/16 23:47 Dose: 3 ml Aspirin (Aspirin Chewable) 81 mg PO DAILY [facility] Last Admin: 12/29/16 10:35 Dose: Not Given Heparin Sodium (Porcine) (Heparin) 5,000 units SC Q8 [facility] Last Admin: 12/30/16 05:12 Dose: 5,000 units Hydrochlorothiazide (Microzide) 12.5 mg PO DAILY [facility] Last Admin: 12/29/16 10:36 Dose: Not Given Piperacillin Sod/Tazobactam Sod (Zosyn 3.375 In Ns 100ml) 100 mls @ 200 mls/hr IVPB Q6 [facility] PRN Reason: Protocol Stop: 01/03/17 18:01 Last Admin: 12/30/16 05:12 Dose: 200 mls/hr Linezolid (Zyvox 600mg/300ml D5w) 600 mg in 300 mls @ 200 mls/hr IVPB Q12 [facility] PRN Reason: Protocol Stop: 01/03/17 22:01 Last Admin: 12/29/16 21:47 Dose: 200 mls/hr Sodium Chloride (Sodium Chloride 0.9%) 1,000 mls @ 100 mls/hr IV .Q10H [facility] Last Admin: 12/29/16 22:01 Dose: Not Given Potassium Phosphate 15 mmole/ (Sodium Chloride) 505 mls @ 42.5 mls/hr IVPB ONCE ONE Stop: 12/30/16 10:43 Last Admin: 12/29/16 23:48 Dose: 42.5 mls/hr Losartan Potassium (Cozaar) 100 mg PO DAILY [facility] Last Admin: 12/29/16 10:35 Dose: Not Given Morphine Sulfate (Morphine) 2 mg IVP Q4H PRN PRN Reason: Pain, moderate (4-7) Last Admin: 12/29/16 21:16 Dose: 2 mg Ondansetron HCl (Zofran Inj) 4 mg IVP Q4H PRN PRN Reason: Nausea/Vomiting Pantoprazole Sodium (Protonix Inj) 40 mg IVP DAILY [facility] Last Admin: 12/29/16 10:36 Dose: Not Given Polyethylene Glycol (Miralax) 17 gm PO BID [facility] Last Admin: 12/29/16 17:50 Dose: 17 gm - Labs Labs: 12/29/16 07:15 12/29/16 07:15 PT 13.3 Seconds (9.9-11.8) H 12/29/16 07:15 INR 1.23 (0.93-1.08) H 12/29/16 07:15 APTT 34.9 Seconds (23.7-30.8) H 12/27/16 19:00 - Constitutional Appears: Non-toxic, No Acute Distress - Head Exam Head Exam: ATRAUMATIC, NORMOCEPHALIC - Eye Exam Eye Exam: Normal appearance. absent: Conjunctival injection, Scleral icterus - ENT Exam ENT Exam: Mucous Membranes Moist, Normal Oropharynx - Respiratory Exam Respiratory Exam: NORMAL BREATHING PATTERN. absent: Accessory Muscle Use, Respiratory Distress - Cardiovascular Exam Cardiovascular Exam: RRR - GI/Abdominal Exam GI & Abdominal Exam: Distended (severe distension with tympany), Soft, Tenderness (diffuse mild tenderness), Hypoactive Bowel Sounds. absent: Rebound - Rectal Exam Additional comments: I&D site with active purulent drainage but no active bleeding. Normal external rectal appearance, patent and productive of dark green/brown liquid stool - Extremities Exam Extremities Exam: Calf Tenderness. absent: Pedal Edema, Tenderness - Back Exam Back Exam: NORMAL INSPECTION. absent: CVA tenderness (L), CVA tenderness (R), rash noted - Neurological Exam Neurological Exam: Alert, Awake, Oriented x3 - Skin Skin Exam: Diaphoretic, Normal Color, Warm Assessment and Plan - Assessment and Plan (Free Text) Assessment: 76 M w/ ischiorectal abscess s/p I&D POD#3 Return of bowel function, cramping abdominal pain, afebrile, VSS WBC small increase today, but it looks d/t fluid contraction from dehydration UOP 0.6cc/h for past 12 hours, dark jacob Plan: - NPO, IVF - insert NGT if patient begins vomiting - f/u AXR flat plate - IV Zosyn, Flagyl as managed by ID - Pain management - Dressing changes daily and more often as needed if soiled, perform sitz baths/ saline flushes of I&D track when stool gets in it - Hold miralax given diarrhea and Abdominal pain - Insert suppository--likely still has obstruction with solid stool with diarrhea leaking around it - UOP adequate, but will keep abl d/t worsening abdominal pain and persistent distention - Continue management as per primary team Discussed with Dr. Shyam Mcfarlane, PGy1
--- NOTE | 2016-12-30 08:43 | CP.PCM.PCO ---
Physician Communication Note - Physician Communication Note Physician Communication Note: Persisting Ileus/Rx add suppository/decrease po input-?NGT prn
[2016-12-30 08:46] LABS: ADD MANUAL DIFF? NO
[2016-12-30 08:58] LABS: BASO # 0.04 K/mm3 (0.0-2.0); BASO % 0.3 % (0.0-3.0); EOS % 0.3 % (1.5-5.0); GRAN # 13.71 (1.4-6.5); GRAN % 86.7 % (50.0-68.0); HEMATOCRIT 36.3 % (42.0-52.0); LYMPH # 1.2 (1.2-3.4); LYMPH % 7.3 % (22.0-35.0); MEAN CELL VOLUME 88.3 fL (80.0-105.0); MEAN CORPUSCULAR HEMOGLOBIN 30.4 pg (25.0-35.0); MEAN CORPUSCULAR HGB CONC 34.4 g/dl (31.0-37.0); MEAN PLATELET VOLUME 10.8 fl (7.0-11.0); MONO # 0.9 (0.1-0.6); MONO % 5.4 % (1.0-6.0); PLATELET COUNT 453 10^3/uL (120.0-450.0); WHITE BLOOD COUNT 15.8 10^3/ul (4.5-11.0)
[2016-12-30 09:18] LABS: ALB/GLOB RATIO 0.8 (1.1-1.8); CALCIUM 8.3 mg/dL (8.4-10.5); MAGNESIUM 2.3 mg/dL (1.7-2.2); PHOSPHOROUS 3.1 mg/dL (2.5-4.5); POTASSIUM 3.7 mmol/L (3.6-5.0); TOTAL PROTEIN 5.9 g/dL (5.8-8.3)
[2016-12-30] MEDS: Sodium Chloride 0.9% 1,000 ML IV SCH ×2 (09:19→23:50)
[2016-12-30] MEDS: Linezolid 600 mg in D5W 300 ml 600 MG/300 ML BAG IVPB SCH ×2 (09:21→21:27)
--- NOTE | 2016-12-30 13:15 | PN ---
DATE: 12/30/2016 I came to see him. He is in a little bit distress. He has an NG tube just placed into his abdomen f or distention, little bit uncomfortable. He is alert and talking. I saw with the resident. No pain unless you palpate the abdomen. MEDICATIONS: He is on aspirin, Cozaar, DuoNeb, heparin, Microzide, MiraLax, morphine, Protonix, IV f luids, Tylenol, Zofran, Zosyn and Zyvox. PHYSICAL EXAMINATION: VITAL SIGNS: Temp 98.5, 60 pulse, 139/70 blood pressure, 20 respiratory rate, 98% O2 sat on nasal ca nnula. HEAD: Atraumatic, normocephalic. NG tube in place, oxygen on. HEART: Regular rate. LUNGS: Decreased breath sounds bilaterally. ABDOMEN: Morbidly obese plus distention. Decreased bowel sounds. EXTREMITIES: Have trace edema. LABORATORY DATA: He has a 15.8 white count, 12.5 hemoglobin, 36.3 hematocrit with 453 platelets. So dium 138, potassium 3.7, BUN is 43, creatinine 1.7 which is improving. GFR is up to 40, sugar is 155 . His hemoglobin A1c was 6.4, lactic acid is 1.3, calcium is 8.3, phosphorus 3.1, magnesium is 2.3. Total bili is 1, AST is 35, ALT is 38, alkaline phosphatase 135, total protein is 5.9. He had a pos itive hepatitis C. He is being seen by surgery, infectious disease and cardiology. He is now having abdominal distention. He also has sepsis, he had a perirectal abscess, history of p rostate cancer, gastroesophageal reflux disease, high cholesterol, hypertension. Continue IV antibio tics, NG tube, n.p.o. Will check his labs tomorrow. Dictating for Dr. Orantes who is off this weekend. Alexis Bernstein DO cc: [id number] TT: 12/30/2016 13:14:10 Confirmation # [id number] Dictation # [id number] christel
--- NOTE | 2016-12-30 14:48 | RAD ---
HISTORY: re-eval ileus vs. SBO COMPARISON: 12/28/2016 FINDINGS: BOWEL: Multiple dilated small bowel loops are identified. There is a paucity of gas identified within large bowel. Findings suspicious for mechanical small bowel obstruction. BONES: Normal. OTHER FINDINGS: None. IMPRESSION: Multiple dilated small bowel loops suspicious for mechanical small bowel obstruction.
--- NOTE | 2016-12-30 14:51 | RAD ---
PROCEDURE: CHEST RADIOGRAPH, 1 VIEW HISTORY: s/p ngt COMPARISON: 12/27/2016 FINDINGS: LUNGS: Patchy opacity at left base without silhouetting of left heart border suspicious for lower lobe pneumonia. Follow-up advised. PLEURA: Hazy opacity at left costophrenic angle may reflect small pleural effusion. No evidence of right pleural effusion. No pneumothorax. CARDIOVASCULAR: New nasogastric tube extends to left upper quadrant of abdomen. Permanent pacemaker. Normal heart size. No congestive change. OSSEOUS STRUCTURES: No significant abnormalities. VISUALIZED UPPER ABDOMEN: Normal. OTHER FINDINGS: None. IMPRESSION: Possible left lower lobe infiltrate. Possible small left pleural effusion. Followup advised. New nasogastric tube extends beneath the diaphragm.
[2016-12-30] MEDS: Morphine 2 mg/ml ISec IVP PRN (17:55)
--- NOTE | 2016-12-30 18:52 | CP.PCM.PN ---
Subjective - Date & Time of Evaluation Date of Evaluation: 12/30/16 Time of Evaluation: 08:25 - Subjective Subjective: Patient is having abdominal discomfort and distention. Afebrile, has some nausea. Objective - Vital Signs/Intake and Output Vital Signs (last 24 hours): Temp Pulse Resp BP Pulse Ox 97.5 F L 62 20 140/55 L 98 12/30/16 18:00 12/30/16 18:15 12/30/16 18:00 12/30/16 18:00 12/30/16 05:53 Intake and Output: 12/30/16 12/30/16 06:59 18:59 Intake Total 1620 120 Output Total 600 500 Balance 1020 -380 - Medications Medications: Current Medications Acetaminophen (Tylenol 325mg Tab) 650 mg PO Q4H PRN PRN Reason: Fever >100.4 F Last Admin: 12/29/16 16:54 Dose: 650 mg Albuterol/Ipratropium (Duoneb 3 Mg/0.5 Mg (3 Ml) Ud) 3 ml IH Q2H PRN PRN Reason: Shortness of Breath Last Admin: 12/29/16 23:47 Dose: 3 ml Aspirin (Aspirin Chewable) 81 mg PO DAILY [facility] Last Admin: 12/30/16 10:00 Dose: Not Given Heparin Sodium (Porcine) (Heparin) 5,000 units SC Q8 [facility] Last Admin: 12/30/16 05:12 Dose: 5,000 units Hydrochlorothiazide (Microzide) 12.5 mg PO DAILY [facility] Last Admin: 12/30/16 10:00 Dose: Not Given Piperacillin Sod/Tazobactam Sod (Zosyn 3.375 In Ns 100ml) 100 mls @ 200 mls/hr IVPB Q6 [facility] PRN Reason: Protocol Stop: 01/03/17 18:01 Last Admin: 12/30/16 17:55 Dose: 200 mls/hr Linezolid (Zyvox 600mg/300ml D5w) 600 mg in 300 mls @ 200 mls/hr IVPB Q12 [facility] PRN Reason: Protocol Stop: 01/03/17 22:01 Last Admin: 12/30/16 09:21 Dose: 200 mls/hr Sodium Chloride (Sodium Chloride 0.9%) 1,000 mls @ 75 mls/hr IV .[id number] [facility] Last Admin: 12/30/16 09:19 Dose: 75 mls/hr Losartan Potassium (Cozaar) 100 mg PO DAILY [facility] Last Admin: 12/30/16 10:00 Dose: Not Given Morphine Sulfate (Morphine) 2 mg IVP Q4H PRN PRN Reason: Pain, moderate (4-7) Last Admin: 12/30/16 17:55 Dose: 2 mg Ondansetron HCl (Zofran Inj) 4 mg IVP Q4H PRN PRN Reason: Nausea/Vomiting Last Admin: 12/30/16 10:42 Dose: 4 mg Pantoprazole Sodium (Protonix Inj) 40 mg IVP DAILY [facility] Last Admin: 12/30/16 09:23 Dose: 40 mg Polyethylene Glycol (Miralax) 17 gm PO BID [facility] Last Admin: 12/29/16 17:50 Dose: 17 gm - Labs Labs: 12/30/16 08:44 12/30/16 08:44 PT 13.3 Seconds (9.9-11.8) H 12/29/16 07:15 INR 1.23 (0.93-1.08) H 12/29/16 07:15 APTT 34.9 Seconds (23.7-30.8) H 12/27/16 19:00 - Constitutional Appears: Non-toxic, No Acute Distress - Head Exam Head Exam: NORMAL INSPECTION - ENT Exam ENT Exam: Mucous Membranes Moist - Neck Exam Neck Exam: absent: Lymphadenopathy, Meningismus - Respiratory Exam Respiratory Exam: Decreased Breath Sounds - Cardiovascular Exam Cardiovascular Exam: +S1, +S2 - GI/Abdominal Exam GI & Abdominal Exam: Distended, Soft, Tenderness (mild). 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
[2016-12-31] MEDS: Morphine 2 mg/ml ISec IVP PRN ×2 (01:11→09:18)
[2016-12-31] MEDS: Piperacillin/Tazobact 3.375 gm 100 ML IVPB SCH ×3 (05:08→17:12)
[2016-12-31] MEDS: Sodium Chloride 0.9% 1,000 ML IV SCH ×2 (06:51→21:22)
--- NOTE | 2016-12-31 07:18 | CP.PCM.CON ---
Past Patient History - Tetanus Immunizations Tetanus Immunization: Unknown - Past Medical History & Family History Past Medical History?: Yes - Past Social History Smoking Status: Former Smoker - CARDIAC Hx Cardiac Disorders: Yes Hx Hypertension: Yes - PULMONARY Hx Respiratory Disorders: No - NEUROLOGICAL Hx Neurological Disorder: No - HEENT Hx HEENT Problems: Yes Hx Cataracts: Yes (early stage) - RENAL Hx Chronic Kidney Disease: Yes Other/Comment: renal stent 2013 - ENDOCRINE/METABOLIC Hx Endocrine Disorders: No - HEMATOLOGICAL/ONCOLOGICAL Hx Blood Disorders: No - INTEGUMENTARY Hx Dermatological Problems: No - MUSCULOSKELETAL/RHEUMATOLOGICAL Hx Falls: No - GASTROINTESTINAL Hx Gastrointestinal Disorders: No - GENITOURINARY/GYNECOLOGICAL Hx Genitourinary Disorders: Yes 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 2010) - PSYCHIATRIC Hx Psychophysiologic Disorder: No Hx Emotional Abuse: No Hx Physical Abuse: No Hx Substance Use: No - SURGICAL HISTORY Other/Comment: renal stents. left carotid endarectomy 2012 - ANESTHESIA Hx Anesthesia: Yes Hx Anesthesia Reactions: No Hx Malignant Hyperthermia: No Meds Allergies/Adverse Reactions: Allergies Allergy/AdvReac Type Severity Reaction Status Date / Time No Known Allergies Allergy Verified 12/27/16 09:51 - Medications Medications: Current Medications Acetaminophen (Tylenol 325mg Tab) 650 mg PO Q4H PRN PRN Reason: Fever >100.4 F Last Admin: 12/29/16 16:54 Dose: 650 mg Albuterol/Ipratropium (Duoneb 3 Mg/0.5 Mg (3 Ml) Ud) 3 ml IH Q2H PRN PRN Reason: Shortness of Breath Last Admin: 12/29/16 23:47 Dose: 3 ml Aspirin (Aspirin Chewable) 81 mg PO DAILY [facility] Last Admin: 12/30/16 10:00 Dose: Not Given Heparin Sodium (Porcine) (Heparin) 5,000 units SC Q8 [facility] Last Admin: 12/30/16 05:12 Dose: 5,000 units Hydrochlorothiazide (Microzide) 12.5 mg PO DAILY [facility] Last Admin: 12/30/16 10:00 Dose: Not Given Piperacillin Sod/Tazobactam Sod (Zosyn 3.375 In Ns 100ml) 100 mls @ 200 mls/hr IVPB Q6 [facility] PRN Reason: Protocol Stop: 01/03/17 18:01 Last Admin: 12/31/16 05:08 Dose: 200 mls/hr Linezolid (Zyvox 600mg/300ml D5w) 600 mg in 300 mls @ 200 mls/hr IVPB Q12 [facility] PRN Reason: Protocol Stop: 01/03/17 22:01 Last Admin: 12/30/16 21:27 Dose: 200 mls/hr Sodium Chloride (Sodium Chloride 0.9%) 1,000 mls @ 100 mls/hr IV .Q10H [facility] Last Admin: 12/31/16 06:51 Dose: 100 mls/hr Losartan Potassium (Cozaar) 100 mg PO DAILY [facility] Last Admin: 12/30/16 10:00 Dose: Not Given Morphine Sulfate (Morphine) 2 mg IVP Q4H PRN PRN Reason: Pain, moderate (4-7) Last Admin: 12/31/16 01:11 Dose: 2 mg Ondansetron HCl (Zofran Inj) 4 mg IVP Q4H PRN PRN Reason: Nausea/Vomiting Last Admin: 12/30/16 10:42 Dose: 4 mg Pantoprazole Sodium (Protonix Inj) 40 mg IVP DAILY [facility] Last Admin: 12/30/16 09:23 Dose: 40 mg Polyethylene Glycol (Miralax) 17 gm PO BID [facility] Last Admin: 12/29/16 17:50 Dose: 17 gm Results - Vital Signs Recent Vital Signs: Last Vital Signs Temp 98.8 F 12/31/16 06:00 Pulse 60 12/31/16 06:00 Resp 20 12/31/16 06:00 BP 128/57 L 12/31/16 06:00 Pulse Ox 97 12/31/16 06:00 - Labs Result Diagrams: 12/30/16 08:44 12/30/16 08:44 Labs: Laboratory Results - last 24 hr 12/30/16 12/30/16 08:44 08:44 WBC 15.8 H RBC 4.11 Hgb 12.5 L Hct 36.3 L MCV 88.3 MCH 30.4 MCHC 34.4 RDW 14.0 Plt Count 453 H MPV 10.8 Gran % 86.7 H Lymph % (Auto) 7.3 L Giles % (Auto) 5.4 Eos % (Auto) 0.3 L Baso % (Auto) 0.3 Gran # 13.71 H Lymph # 1.2 Giles # 0.9 H Eos # 0.0 Baso # 0.04 Sodium 138 Potassium 3.7 Chloride 113 H Carbon Dioxide 17 L Anion Gap 12 BUN 43 H Creatinine 1.7 H Est GFR ( Amer) 48 Est GFR (Non-Af Amer) 40 Random Glucose 155 H Calcium 8.3 L Phosphorus 3.1 Magnesium 2.3 H Total Bilirubin 1.0 AST 35 ALT 38 Alkaline Phosphatase 135 H Total Protein 5.9 Albumin 2.5 L Globulin 3.3 Albumin/Globulin Ratio 0.8 L
[2016-12-31 07:43] LABS: ADD MANUAL DIFF? NO
[2016-12-31 07:51] LABS: BASO # 0.04 K/mm3 (0.0-2.0); BASO % 0.3 % (0.0-3.0); EOS # 0.2 (0.0-0.7); EOS % 1.2 % (1.5-5.0); GRAN # 12.98 (1.4-6.5); HEMATOCRIT 35.3 % (42.0-52.0); LYMPH # 1.4 (1.2-3.4); LYMPH % 8.7 % (22.0-35.0); MEAN CELL VOLUME 90.3 fL (80.0-105.0); MEAN CORPUSCULAR HEMOGLOBIN 30.4 pg (25.0-35.0); MEAN CORPUSCULAR HGB CONC 33.7 g/dl (31.0-37.0); MEAN PLATELET VOLUME 10.6 fl (7.0-11.0); MONO # 0.9 (0.1-0.6); MONO % 5.8 % (1.0-6.0); PLATELET COUNT 454 10^3/uL (120.0-450.0); RED CELL DISTRIBUTION WIDTH 14.3 % (11.5-14.5); WHITE BLOOD COUNT 15.4 10^3/ul (4.5-11.0)
[2016-12-31 08:09] LABS: ALB/GLOB RATIO 0.7 (1.1-1.8); BILIRUBIN,TOTAL 0.8 mg/dL (0.2-1.3); POTASSIUM 3.6 mmol/L (3.6-5.0); TOTAL PROTEIN 5.5 g/dL (5.8-8.3)
--- NOTE | 2016-12-31 08:09 | CP.PCM.PN ---
Subjective - Date & Time of Evaluation Date of Evaluation: 12/31/16 Time of Evaluation: 07:00 - Subjective Subjective: Pt s/e at bedside this AM. Patient had NGT placed yesterday due to nausea and vomiting. Continued to have bowel movements yesterday. Nausea and vomiting have resolved and cramping abdominal pain has much improved. Denies fevers, chills, chest pain, SOB or any other symptoms. Objective - Vital Signs/Intake and Output Vital Signs (last 24 hours): Temp Pulse Resp BP Pulse Ox 98.8 F 60 20 128/57 L 97 12/31/16 06:00 12/31/16 06:00 12/31/16 06:00 12/31/16 06:00 12/31/16 06:00 Intake and Output: 12/31/16 12/31/16 06:59 18:59 Intake Total 1200 Output Total 650 Balance 550 - Medications Medications: Current Medications Acetaminophen (Tylenol 325mg Tab) 650 mg PO Q4H PRN PRN Reason: Fever >100.4 F Last Admin: 12/29/16 16:54 Dose: 650 mg Albuterol/Ipratropium (Duoneb 3 Mg/0.5 Mg (3 Ml) Ud) 3 ml IH Q2H PRN PRN Reason: Shortness of Breath Last Admin: 12/29/16 23:47 Dose: 3 ml Aspirin (Aspirin Chewable) 81 mg PO DAILY [facility] Last Admin: 12/30/16 10:00 Dose: Not Given Heparin Sodium (Porcine) (Heparin) 5,000 units SC Q8 [facility] Last Admin: 12/30/16 05:12 Dose: 5,000 units Hydrochlorothiazide (Microzide) 12.5 mg PO DAILY [facility] Last Admin: 12/30/16 10:00 Dose: Not Given Piperacillin Sod/Tazobactam Sod (Zosyn 3.375 In Ns 100ml) 100 mls @ 200 mls/hr IVPB Q6 [facility] PRN Reason: Protocol Stop: 01/03/17 18:01 Last Admin: 12/31/16 05:08 Dose: 200 mls/hr Linezolid (Zyvox 600mg/300ml D5w) 600 mg in 300 mls @ 200 mls/hr IVPB Q12 [facility] PRN Reason: Protocol Stop: 01/03/17 22:01 Last Admin: 12/30/16 21:27 Dose: 200 mls/hr Sodium Chloride (Sodium Chloride 0.9%) 1,000 mls @ 100 mls/hr IV .Q10H [facility] Last Admin: 12/31/16 06:51 Dose: 100 mls/hr Losartan Potassium (Cozaar) 100 mg PO DAILY [facility] Last Admin: 12/30/16 10:00 Dose: Not Given Morphine Sulfate (Morphine) 2 mg IVP Q4H PRN PRN Reason: Pain, moderate (4-7) Last Admin: 12/31/16 01:11 Dose: 2 mg Ondansetron HCl (Zofran Inj) 4 mg IVP Q4H PRN PRN Reason: Nausea/Vomiting Last Admin: 12/30/16 10:42 Dose: 4 mg Pantoprazole Sodium (Protonix Inj) 40 mg IVP DAILY [facility] Last Admin: 12/30/16 09:23 Dose: 40 mg Polyethylene Glycol (Miralax) 17 gm PO BID [facility] Last Admin: 12/29/16 17:50 Dose: 17 gm - Labs Labs: 12/31/16 07:30 12/30/16 08:44 PT 13.3 Seconds (9.9-11.8) H 12/29/16 07:15 INR 1.23 (0.93-1.08) H 12/29/16 07:15 APTT 34.9 Seconds (23.7-30.8) H 12/27/16 19:00 - Constitutional Appears: Well, Non-toxic, No Acute Distress - Head Exam Head Exam: ATRAUMATIC, NORMOCEPHALIC - Eye Exam Eye Exam: Normal appearance. absent: Conjunctival injection, Scleral icterus - ENT Exam ENT Exam: Mucous Membranes Moist, Normal Oropharynx - Respiratory Exam Respiratory Exam: NORMAL BREATHING PATTERN. absent: Accessory Muscle Use, Respiratory Distress - GI/Abdominal Exam GI & Abdominal Exam: Distended (severely distended but improved since yesterday) , Soft. absent: Tenderness, Rebound - Rectal Exam Additional comments: Large cruciate incision from I&D on Left buttock near gluteal cleft with some purulent drainage, some fecal matter in the wound but probably spread from anus. minimal surrounding erythema - Extremities Exam Extremities Exam: Pedal Edema (1+ non-pitting pedal edema BL). absent: Calf Tenderness, Tenderness - Back Exam Back Exam: NORMAL INSPECTION. absent: rash noted, tenderness - Neurological Exam Neurological Exam: Alert, Awake, Oriented x3 - Psychiatric Exam Psychiatric exam: Normal Affect, Normal Mood - Skin Skin Exam: Dry, Intact (except as noted in the rectal exam), Normal Color, Warm Assessment and Plan - Assessment and Plan (Free Text) Assessment: 76 M w/ ischiorectal abscess s/p I&D POD#4 Multiple liquid BM's yesterday, cramping abdominal pain stopped overnight, afebrile, VSS minimal NGT output WBC small decrease today but persistently elevated CXR yesterday: possible LLL pneumonia vs small pleural effusion AXR flat plate 12/30: Multiple dilated small bowel loops, paucity of gas identified within large bowel, suspicious for mechanical small bowel obstruction. UOP 0.45cc/h for past 12 hours, dark jacob Plan: - NPO, IVF - IV Zosyn, Flagyl as managed by ID - Pain management - Dressing changes daily and more often as needed if soiled, perform sitz baths/ saline flushes of I&D track with dressing changes - Dulcolax suppository--likely still has obstruction with solid stool with liquid stool leaking around it - Continue management as per primary team Discussed with Dr. Shyam Mcfarlane, PGy1
[2016-12-31] MEDS: Linezolid 600 mg in D5W 300 ml 600 MG/300 ML BAG IVPB SCH ×2 (10:20→21:40)
--- NOTE | 2016-12-31 10:33 | PN ---
DATE: 12/31/2016 I am seeing him today for Dr. Orantes, who is off this weekend. He is resting comfortably in bed. He now has an NG tube in his belly. He has got a distended abdome n. It is a little bit better than yesterday, still distended, less tender. Also, there are bowel so unds today, which I think is a bit of improvement. He is a little bit uncomfortable, but not as bad as yesterday. He had hep C, rectal abscess and drainage, renal insufficiency, sepsis. He has a hist ory of prostate cancer. PHYSICAL EXAMINATION: VITAL SIGNS: Temp 98.8, 60 pulse, 128/57 blood pressure, 20 respiratory rate, 97% O2 sat on nasal ca nnula. HEENT: His head is atraumatic, normocephalic. NG tube in place to suction on the wall, not much is coming out, but some is coming out, brown, copious. HEART: Regular rate. LUNGS: Decreased breath sounds, but clear. I asked him to take deep breaths throughout the day to p revent pneumonia. ABDOMEN: Distended, not as distended as yesterday, less tender, but there are also bowel sounds toda y all over and hopefully this will get his bowels moving again. EXTREMITIES: Have trace edema. He is currently on aspirin, Cozaar, DuoNeb, heparin, Microzide, MiraLax, morphine, Protonix, IV fluid s, Tylenol, Zofran, Zosyn and Zyvox. He has a 15.4 white count, still high, 11.9 hemoglobin, 35.3 hematocrit with 454 platelets. Sodium 1 42, potassium 3.6, BUN is 44, creatinine 1.6, a little bit better, coming down, GFR is up to 42, suga r is 135, calcium is 8, total bili is 0.8, AST is 48, ALT is 42, alk phos 107, all better, total prot ein is 5.5. He is being seen by surgery, GI, infectious disease. He has sepsis, perirectal abscess, status post drainage, abdominal distention, ruling out ileus versus small bowel obstruction. They are continuing the IV antibiotics. On the abdominal x-ray, multiple dilated small loops suspicious for mechanical small bowel obstruction. The chest x-ray shows possible left lower lobe infiltrate, possible small l eft pleural effusion and an NG tube in place. I will call in pulmonology for the lungs. Surgery is already on, but I do feel there are more bowel sounds today than yesterday. Maybe this small bowel o bstruction will start to decrease. Continue with aggressive treatment and care. We will check his l abs tomorrow. Alexis Bernstein DO cc: [id number] TT: 12/31/2016 10:33:16 Confirmation # [id number] Dictation # [id number]
--- NOTE | 2016-12-31 15:16 | CON ---
DATE: 12/31/2016 PULMONARY CONSULTATION HISTORY OF PRESENT ILLNESS: The patient is in 271. The patient is a alexey 76- year-old gentleman with a longstanding history of coronary artery disease. The patient had stent placement in the past. He has a third degree block, has a permanent pacemaker and a significant dilated cardiomyopathy. In addition, his past history includes prostate cancer, GERD, as well as hypertension. The patient was admitted to the hospital with rectal pain. During the course of his hospitalization, he recently had an I and D under general anesthesia for a perirectal abscess. During the postoperative period, the patient developed a possible pneumonitis seen on chest x-ray despite the patient's lack of symptoms and findings PAST MEDICAL HISTORY: As described above. SOCIAL HISTORY: Former smoker, quit 4 years ago. No alcohol use. No travel history. ALLERGIES: No known allergies. FAMILY HISTORY: Hypertension, coronary artery disease. REVIEW OF SYSTEMS: Discussed with the patient and his daughter at the bedside. No additional problems described other than that described above. He did have other procedures including repair of his prostate with robotic reconstruction as well as carotid endarterectomy. Minimal dyspnea on exertion noted. No pleurisy, no hemoptysis. No rashes, no memory loss. No additional findings were found during the complete review of systems. All other systems negative. HOME MEDICATIONS: As per her initial history and physical, no pulmonary medications were known. No pulmonary symptoms are described. This is negative even for early a.m. cough and expectoration in a post-smoker. PHYSICAL EXAMINATION: GENERAL: The patient is comfortable, in no acute respiratory distress. He is comfortable at rest. VITAL SIGNS: Stable. He is afebrile, blood pressure 130/70, heart rate 68, blood oxygen saturation 96% on supplemental oxygen. HEENT: Normocephalic, atraumatic. Eyes: PERRLA. EOMs full. Mucous membranes are normal. NECK: Supple, no JVD, no lymphadenopathy, no bruit, no mass, no thyromegaly. CARDIOVASCULAR: Regular rhythm and diastolic murmur. S1, S2. No gallop, or rub. LUNGS: Scattered rhonchi throughout both lung molina mainly at the left base. No wheezing is appreciated. ABDOMEN: Soft. Bowel sounds normoactive without mass, guarding, rebound or organomegaly. EXTREMITIES: Reveal no clubbing, cyanosis or edema. There is no Homans sign. NEUROLOGIC: Awake, alert, oriented. Motor, sensory and coordination normal. Babinski downgoing. Deep tendon reflexes normal. PSYCHIATRIC: Normal affect. Motor, sensory, no additional abnormalities noted. SKIN: Dry. No rash or excoriation. LYMPHATICS: Lymphadenopathy -- none. No abnormalities noted in the supraclavicular notch nor in the cervical, inguinal or axillary areas. LABORATORY DATA: Chest x-ray, as described above, shows a new infiltrate noted at the base at the left lower lobe area with a small pleural effusion, the right side appears normal, probable left lower lobe pneumonia. EKG: Sinus rhythm, nonspecific ST-T wave changes. Latest white count is 15,400 from original 25.9, hemoglobin is 11.9 from 13.5, platelet count 454 from 381, granulocytes 84 from an original 90. Chemistries most recently: Sodium 142, potassium 3.6, chloride 115, carbon dioxide 20, BUN 44, creatinine 1.6. BNP not done. CLINICAL IMPRESSION: 1. Hazy small pneumonic infiltrate. 2. Probable chronic obstructive pulmonary disease. 3. Incision and drainage of perirectal abscess. 4. Previous smoker. 5. Dyspnea. Please note that the patient has dyspnea on exercise or ambulation. This may indeed be due to his valvular heart disease or may be due to combined chronic obstructive pulmonary disease. PLAN: 1. Await infectious disease doctor, who has been seeing the patient all along to take into consideration the new pulmonary infiltrate and adjust antibiotics accordingly. 2. No need for bronchodilators at this point. There are no rales or wheezes. There does not appear to be any secretion problems. 3. The patient will need a pulmonary function study when he is feeling better. This will determine if his dyspnea is from a cardiac or pulmonary point of view. Most likely this is of dual etiologies. A bronchodilator, may be indicated. 4. Must follow the x-ray to complete resolution to rule out underlying pathology and resolution of the pneumonia. 5. Strongly suggest pulmonary intervention as an outpatient for evaluation for COPD and possibly treatment. Make sure there are no other abnormalities seen with a CT of the chest once the pneumonia has resolved. We will follow closely with you. Dr. Romero will be caring for this patient starting tomorrow morning. I will discuss the case with him and make sure that he is aware of the problems discussed herein. Bassam Whitehead MD cc: [id number] TT: 12/31/2016 15:15:55 Confirmation # [id number] Dictation # [id number] MTDD
--- NOTE | 2016-12-31 19:10 | CP.PCM.PN ---
Subjective - Date & Time of Evaluation Date of Evaluation: 12/31/16 Time of Evaluation: 09:55 - Subjective Subjective: Still having abdominal distention, has mild SOB at rest, no fevers overnight. Objective - Vital Signs/Intake and Output Vital Signs (last 24 hours): Temp Pulse Resp BP Pulse Ox 98.7 F 60 20 155/63 H 97 12/31/16 18:00 12/31/16 18:00 12/31/16 18:00 12/31/16 18:00 12/31/16 06:00 Intake and Output: 12/31/16 01/01/17 18:59 06:59 Intake Total 1600 Output Total 970 Balance 630 - Medications Medications: Current Medications Acetaminophen (Tylenol 650mg/20.3ml Solution Ud) 650 mg GT Q4H PRN PRN Reason: Fever >100.4 F Albuterol/Ipratropium (Duoneb 3 Mg/0.5 Mg (3 Ml) Ud) 3 ml IH Q2H PRN PRN Reason: Shortness of Breath Last Admin: 12/29/16 23:47 Dose: 3 ml Aspirin (Aspirin Chewable) 81 mg PO DAILY [facility] Last Admin: 12/30/16 10:00 Dose: Not Given Heparin Sodium (Porcine) (Heparin) 5,000 units SC Q8 [facility] Last Admin: 12/30/16 05:12 Dose: 5,000 units Hydrochlorothiazide (Microzide) 12.5 mg GT DAILY [facility] Last Admin: 12/31/16 10:20 Dose: 12.5 mg Linezolid (Zyvox 600mg/300ml D5w) 600 mg in 300 mls @ 200 mls/hr IVPB Q12 [facility] PRN Reason: Protocol Stop: 01/03/17 22:01 Last Admin: 12/31/16 10:20 Dose: 200 mls/hr Sodium Chloride (Sodium Chloride 0.9%) 1,000 mls @ 100 mls/hr IV .Q10H [facility] Last Admin: 12/31/16 06:51 Dose: 100 mls/hr Meropenem 1g/NS 100mL IVPB (Meropenem 1g/Ns 100ml Ivpb) 1 gm in 100 mls @ 100 mls/hr IVPB Q12 [facility] PRN Reason: Protocol Stop: 01/07/17 22:01 Losartan Potassium (Cozaar) 100 mg GT DAILY [facility] Last Admin: 12/31/16 10:20 Dose: 100 mg Morphine Sulfate (Morphine) 2 mg IVP Q4H PRN PRN Reason: Pain, moderate (4-7) Last Admin: 12/31/16 09:18 Dose: 2 mg Ondansetron HCl (Zofran Inj) 4 mg IVP Q4H PRN PRN Reason: Nausea/Vomiting Last Admin: 12/30/16 10:42 Dose: 4 mg Pantoprazole Sodium (Protonix Inj) 40 mg IVP DAILY [facility] Last Admin: 12/31/16 10:19 Dose: 40 mg Polyethylene Glycol (Miralax) 17 gm PO BID [facility] Last Admin: 12/29/16 17:50 Dose: 17 gm - Labs Labs: 12/31/16 07:30 12/31/16 07:30 PT 13.3 Seconds (9.9-11.8) H 12/29/16 07:15 INR 1.23 (0.93-1.08) H 12/29/16 07:15 APTT 34.9 Seconds (23.7-30.8) H 12/27/16 19:00 - Constitutional Appears: Non-toxic, No Acute Distress - Head Exam Head Exam: NORMAL INSPECTION - ENT Exam Additional comments: NG tube in place - Neck Exam Neck Exam: absent: Lymphadenopathy, Meningismus - Respiratory Exam Respiratory Exam: Decreased Breath Sounds - Cardiovascular Exam Cardiovascular Exam: +S1, +S2 - GI/Abdominal Exam GI & Abdominal Exam: Distended, Soft. absent: Tenderness Assessment and Plan - Assessment and Plan (Free Text) Plan: Assessment Sepsis due to perirectal abscess S/P I and D POD #4 - cx growing Strep milleri and E. coli; consider new onset lower lobe HCAP Abdominal distention consider bowel obstruction CAD S/P PCI prostate ca s/p robotic reconstruction 6 years ago GERD dyslipidemia history of 3rd degree AV block s/p permanent pacemaker placement history of dilated cardiomyopathy HTN history of back surgery S/P carotid endarterectomy Plan Continue Zyvox and change Zosyn to Merrem ;blood cx negative continue to monitor clinically
[2016-12-31] MEDS: Meropenem 1g/NS 100mL IVPB 1 GM/100 ML PIGGYBACK IVPB SCH (21:17)
[2016-12-31] MEDS ORDERED: DiphenhydrAMINE 50 mg/ml Inj IVP ONE (23:36)
[2017-01-01 06:17] LABS: MEAN CELL VOLUME 92.4 fL (80.0-105.0); MEAN CORPUSCULAR HEMOGLOBIN 30.4 pg (25.0-35.0); MEAN CORPUSCULAR HGB CONC 32.9 g/dl (31.0-37.0); MEAN PLATELET VOLUME 10.2 fl (7.0-11.0); RED CELL DISTRIBUTION WIDTH 14.5 % (11.5-14.5); WHITE BLOOD COUNT 14.7 10^3/ul (4.5-11.0)
[2017-01-01 06:50] LABS: ALB/GLOB RATIO 0.7 (1.1-1.8); BILIRUBIN,TOTAL 0.6 mg/dL (0.2-1.3); TOTAL PROTEIN 5.6 g/dL (5.8-8.3)
--- NOTE | 2017-01-01 07:00 | CP.PCM.PN ---
<Ashlyn Moore - Last Filed: 01/01/17 16:17> Subjective - Date & Time of Evaluation Date of Evaluation: 01/01/17 Time of Evaluation: 07:10 - Subjective Subjective: Medicine progress note for Dr Sharpe and Dr Orantes. Patient reports he coughed up blood this AM. Patient states it has now resolved. Patient 's NGT was also draining some a little bit of blood. Patient has not gotten out of bed. Patient is still experiencing diarhea. Patient reports the lower quadrant abdominal pain has improved. Patient is npo. Patient denies cp, sob, headache or dizziness. Patient is afebrile. Objective - Vital Signs/Intake and Output Vital Signs (last 24 hours): Temp Pulse Resp BP Pulse Ox 98.7 F 62 19 133/52 L 98 01/01/17 05:47 01/01/17 05:47 01/01/17 05:47 01/01/17 05:47 01/01/17 05:47 Intake and Output: 01/01/17 01/01/17 06:59 18:59 Intake Total 2600 Output Total 400 Balance 2200 - Medications Medications: Current Medications Acetaminophen (Tylenol 650mg/20.3ml Solution Ud) 650 mg GT Q4H PRN PRN Reason: Fever >100.4 F Albuterol/Ipratropium (Duoneb 3 Mg/0.5 Mg (3 Ml) Ud) 3 ml IH Q2H PRN PRN Reason: Shortness of Breath Last Admin: 12/29/16 23:47 Dose: 3 ml Aspirin (Aspirin Chewable) 81 mg PO DAILY [facility] Last Admin: 12/30/16 10:00 Dose: Not Given Heparin Sodium (Porcine) (Heparin) 5,000 units SC Q8 [facility] Last Admin: 12/30/16 05:12 Dose: 5,000 units Hydrochlorothiazide (Microzide) 12.5 mg GT DAILY [facility] Last Admin: 12/31/16 10:20 Dose: 12.5 mg Linezolid (Zyvox 600mg/300ml D5w) 600 mg in 300 mls @ 200 mls/hr IVPB Q12 [facility] PRN Reason: Protocol Stop: 01/03/17 22:01 Last Admin: 12/31/16 21:40 Dose: 200 mls/hr Sodium Chloride (Sodium Chloride 0.9%) 1,000 mls @ 100 mls/hr IV .Q10H [facility] Last Admin: 12/31/16 21:22 Dose: 100 mls/hr Meropenem 1g/NS 100mL IVPB (Meropenem 1g/Ns 100ml Ivpb) 1 gm in 100 mls @ 100 mls/hr IVPB Q12 [facility] PRN Reason: Protocol Stop: 01/07/17 22:01 Last Admin: 12/31/16 21:17 Dose: 100 mls/hr Losartan Potassium (Cozaar) 100 mg GT DAILY [facility] Last Admin: 12/31/16 10:20 Dose: 100 mg Morphine Sulfate (Morphine) 2 mg IVP Q4H PRN PRN Reason: Pain, moderate (4-7) Last Admin: 12/31/16 09:18 Dose: 2 mg Ondansetron HCl (Zofran Inj) 4 mg IVP Q4H PRN PRN Reason: Nausea/Vomiting Last Admin: 12/30/16 10:42 Dose: 4 mg Pantoprazole Sodium (Protonix Inj) 40 mg IVP DAILY [facility] Last Admin: 12/31/16 10:19 Dose: 40 mg Polyethylene Glycol (Miralax) 17 gm PO BID [facility] Last Admin: 12/29/16 17:50 Dose: 17 gm - Labs Labs: 01/01/17 06:00 12/31/16 07:30 PT 13.3 Seconds (9.9-11.8) H 12/29/16 07:15 INR 1.23 (0.93-1.08) H 12/29/16 07:15 APTT 34.9 Seconds (23.7-30.8) H 12/27/16 19:00 - Constitutional Appears: No Acute Distress - Head Exam Head Exam: ATRAUMATIC, NORMAL INSPECTION, NORMOCEPHALIC - Eye Exam Eye Exam: Normal appearance, PERRL. absent: Scleral icterus - ENT Exam ENT Exam: Mucous Membranes Moist - Neck Exam Neck Exam: Normal Inspection - Respiratory Exam Respiratory Exam: Clear to Ausculation Bilateral, NORMAL BREATHING PATTERN. absent: Rhonchi, Wheezes, Respiratory Distress, Stridor - Cardiovascular Exam Cardiovascular Exam: REGULAR RHYTHM, RRR, +S1, +S2 - GI/Abdominal Exam GI & Abdominal Exam: Distended, Soft, Tenderness (LOwer quadrants), Normal Bowel Sounds. absent: Guarding - Extremities Exam Extremities Exam: Pedal Edema (+2) - Neurological Exam Neurological Exam: Alert, Awake, Oriented x3 - Psychiatric Exam Psychiatric exam: Normal Affect, Normal Mood - Skin Skin Exam: Dry, Warm Additional comments: The rectal region with clean dressing. Assessment and Plan - Assessment and Plan (Free Text) Assessment: Patient is a 76 y/o M w/ PMH of CAD with stents in the past, AR, h/o prostate ca s/p robotic reconstruction, Gerd, hld, 3rd degree AV block s/p PPM, h/o dilated cardiomyopathy, and htn admitted with perirectal abscess s/p surgery day 5. Patient developed SBO, and chest x-ray revealed possible pneumonia. Plan: 1) Sepsis 2nd to perirectal abscess - resolving- leukocytosis trending down, afebrile, - s/p surgery - no growth on blood culture, rectal abscess culture growing strep and ecoli - Bx changed to merrem and zyvox. - ID and surgery following - OOBTC with assistance. 2) Mechanical SBO. - s/p NGT with minimal drainage, was draining blood likely traumatic; mixed with brow/greenish material. - s/p miralax - + BM and gas - NPO - NS@ 50 ML/HR 3) Diarrhea likely secondary to laxative - c diff negative - Laxative on hold. 4) Left lower lobe infiltrate - Normal exam, saturating well on room air - on antibiotics - procal pending - Pulm following - echo pending 5) Kaia-rectal abscess s/p surgery - surgical incision management as per surgical team 6) DENISE - bun/creat continue to trending down - will continue to monitor. 7) Transaminitis- - improved - hep panel with HCV antibody positive - HCV RNA pending 8) CAD w/ stents - on hctz and cozaar for htn - continue asa 9) Normocytic anemia- likely dilutional - h/h stable, will monitor 10) DVT and GI prophylaxis: protonix and heparin sc. 11) Dispo- pending PT Patient seen, examined, discussed with Dr Sharpe. <Woody Sharpe - Last Filed: 01/14/17 19:06> Objective - Vital Signs/Intake and Output Vital Signs (last 24 hours): Temp Pulse Resp BP Pulse Ox 98.4 F 60 16 153/55 H 97 06/04/17 18:00 01/14/17 18:00 01/14/17 18:00 01/14/17 18:00 01/14/17 05:43 Intake and Output: 01/14/17 01/15/17 18:59 06:59 Intake Total 240 Output Total 400 Balance -160 - Medications Medications: Current Medications Acetaminophen (Tylenol 650mg/20.3ml Solution Ud) 650 mg GT Q4H PRN PRN Reason: Fever >100.4 F Albuterol/Ipratropium (Duoneb 3 Mg/0.5 Mg (3 Ml) Ud) 3 ml IH Q2H PRN PRN Reason: Shortness of Breath Last Admin: 01/13/17 08:32 Dose: 3 ml Alprazolam (Xanax) 0.5 mg PO TID PRN; Protocol PRN Reason: Anxiety Last Admin: 01/14/17 01:14 Dose: 0.5 mg Aspirin (Aspirin Chewable) 81 mg PO DAILY [facility] Last Admin: 01/14/17 09:50 Dose: 81 mg Diphenhydramine HCl (Benadryl) 25 mg PO HS PRN PRN Reason: Insomnia Last Admin: 01/13/17 21:30 Dose: 25 mg Ferrous Sulfate (Feosol) 324 mg PO TID [facility] Last Admin: 01/14/17 17:51 Dose: 324 mg Heparin Sodium (Porcine) (Heparin) 5,000 units SC Q8 [facility] Last Admin: 01/10/17 05:44 Dose: 5,000 units Hydralazine HCl (Apresoline) 10 mg IVP Q6 PRN PRN Reason: FOR SBP>160 and Distolic>100 Hydrochlorothiazide (Hydrodiuril) 25 mg GT DAILY [facility] Last Admin: 01/14/17 09:50 Dose: 25 mg Hydromorphone HCl (Dilaudid) 1 mg IVP Q6 PRN PRN Reason: Pain, moderate (4-7) Last Admin: 01/14/17 18:32 Dose: 1 mg Cefazolin Sodium (Ancef 1gm In Ns) 1 gm in 100 mls @ 100 mls/hr IVPB Q8 [facility] PRN Reason: Protocol Last Admin: 01/14/17 14:36 Dose: 100 mls/hr Metronidazole (Flagyl) 500 mg in 100 mls @ 100 mls/hr IVPB Q8 [facility] PRN Reason: Protocol Last Admin: 01/14/17 14:36 Dose: 100 mls/hr Ketorolac Tromethamine (Toradol) 30 mg IVP Q6 PRN PRN Reason: Pain, moderate (4-7) Last Admin: 01/13/17 13:49 Dose: 30 mg Losartan Potassium (Cozaar) 100 mg GT DAILY [facility] Last Admin: 01/14/17 09:50 Dose: 100 mg Multivitamins (Thera Tab) 1 tab PO DAILY [facility] Last Admin: 01/14/17 09:50 Dose: 1 tab Nystatin (Nystop Topical Powder) 0 gm TOP TID [facility] Last Admin: 01/14/17 17:52 Dose: 1 appl Ondansetron HCl (Zofran Inj) 4 mg IVP Q4H PRN PRN Reason: Nausea/Vomiting Last Admin: 01/06/17 21:58 Dose: 4 mg Pantoprazole Sodium (Protonix Inj) 40 mg IVP Q12 [facility] Last Admin: 01/14/17 10:01 Dose: 40 mg Povidone Iodine (Betadine 10% Topical Soln) 10 ml TOP QID PRN PRN Reason: Soiled packing Simethicone (Mylicon Chew Tab) 80 mg PO PCHS [facility] Last Admin: 01/14/17 17:52 Dose: 80 mg Tamsulosin HCl (Flomax) 0.4 mg PO DAILY [facility] Last Admin: 01/14/17 09:50 Dose: 0.4 mg - Labs Labs: 01/14/17 06:25 01/14/17 06:25 PT 12.6 Seconds (9.9-11.8) H 01/10/17 12:30 INR 1.17 (0.93-1.08) H 01/10/17 12:30 APTT 33.4 Seconds (23.7-30.8) H 01/10/17 12:30 Attending/Attestation - Attestation I have personally seen and examined this patient.: Yes I have fully participated in the care of the patient.: Yes I have reviewed all pertinent clinical information, including history, physical exam and plan: Yes Notes (Text): 01/14/17 19:06 Medical record note made by the resident after discussion with my direction and input after the patient was personally seen and examined by me. I have reviewed the chart and agree that the record accurately reflects by personal performance of the history, physical exam, data review, and medical decision-making, in the course for the patient. I have also personally directed the plan of care.
--- NOTE | 2017-01-01 07:36 | PN ---
DATE: 01/01/2017 SUBJECTIVE: The patient appears comfortable at rest. He is not short of breath. PHYSICAL EXAMINATION: VITAL SIGNS: Temperature is 98.7, pulse 62, respirations 19, blood pressure 133 /52. Oxygen saturation on nasal cannula is 98%. HEENT: Normocephalic, atraumatic. No JVD. CARDIOVASCULAR: Systolic ejection murmur at the lower left sternal border. No S3 gallop. LUNGS: Decreased breath sounds at the bases. Very minimal rhonchi. No wheezing. EXTREMITIES: Positive for mild edema. No cyanosis, no clubbing. Calves are nontender to palpation. GASTROINTESTINAL: Abdomen is soft. It is distended. It is nontender to palpation. Bowel sounds are positive. SKIN: No acute rash. NEUROLOGIC: Limited at the present time. IMPRESSION: 1. Perirectal abscess. Status post surgery. 2. Left lower lobe pneumonia. 3. Coronary artery disease. 4. Cardiomyopathy. 5. Mild anemia. PLAN: The patient appears comfortable this morning. He is not short of breath at rest. His abdomen remains distended. He does state to feeling much better overall. On physical exam, there is no significant bronchospasm noted. In addition, there is no significant alveolar-arterial gradient. Oxygen saturation on nasal cannula is currently 98%. I will continue the current nebulizer treatments as ordered, as well as the supplemental oxygen. The patient is also urged to use his spirometer. I would continue with the antibiotic coverage as per infectious disease. The temperatures have resolved. The leukocytosis is resolving. I would continue with the surgical evaluation. Input by Dr. Howe is noted. Clinical status of the patient is improved -- compared to the initial presentation. I will discuss the above with the attending physician. Jaden Romero MD cc: [id number] TT: 01/01/2017 07:36:09 Confirmation # [id number] Dictation # [id number] MTDD
[2017-01-01] MEDS: Sodium Chloride 0.9% 1,000 ML IV SCH (08:22)
--- NOTE | 2017-01-01 08:38 | CP.PCM.PN ---
Subjective - Date & Time of Evaluation Date of Evaluation: 01/01/17 Time of Evaluation: 07:00 - Subjective Subjective: General Surgery Dr. Howe Pt S&E @bedside. NAEO. afebrile. pain improved. c/o diarrhea. NGT in place w/ red fluid in tube, concerning for blood. pt reports coughing up red-tinged phlegm. denies F/C, N/V. Selected Entries 12/31/16 12/31/16 01/01/17 15:10 18:48 06:37 Output, Gastric 100 Drainage Amount [ Urethral (Bal )] Output, Urine 400 470 400 Amount [ Urethral (Bal )] Objective - Vital Signs/Intake and Output Vital Signs (last 24 hours): Temp Pulse Resp BP Pulse Ox 98.7 F 62 19 133/52 L 98 01/01/17 05:47 01/01/17 05:47 01/01/17 05:47 01/01/17 05:47 01/01/17 05:47 Intake and Output: 01/01/17 01/01/17 06:59 18:59 Intake Total 2600 Output Total 400 Balance 2200 - Medications Medications: Current Medications Acetaminophen (Tylenol 650mg/20.3ml Solution Ud) 650 mg GT Q4H PRN PRN Reason: Fever >100.4 F Albuterol/Ipratropium (Duoneb 3 Mg/0.5 Mg (3 Ml) Ud) 3 ml IH Q2H PRN PRN Reason: Shortness of Breath Last Admin: 12/29/16 23:47 Dose: 3 ml Aspirin (Aspirin Chewable) 81 mg PO DAILY [facility] Last Admin: 12/30/16 10:00 Dose: Not Given Heparin Sodium (Porcine) (Heparin) 5,000 units SC Q8 [facility] Last Admin: 12/30/16 05:12 Dose: 5,000 units Hydrochlorothiazide (Microzide) 12.5 mg GT DAILY [facility] Last Admin: 12/31/16 10:20 Dose: 12.5 mg Linezolid (Zyvox 600mg/300ml D5w) 600 mg in 300 mls @ 200 mls/hr IVPB Q12 [facility] PRN Reason: Protocol Stop: 01/03/17 22:01 Last Admin: 12/31/16 21:40 Dose: 200 mls/hr Meropenem 1g/NS 100mL IVPB (Meropenem 1g/Ns 100ml Ivpb) 1 gm in 100 mls @ 100 mls/hr IVPB Q12 [facility] PRN Reason: Protocol Stop: 01/07/17 22:01 Last Admin: 12/31/16 21:17 Dose: 100 mls/hr Sodium Chloride (Sodium Chloride 0.9%) 1,000 mls @ 50 mls/hr IV .Q20H [facility] Last Admin: 01/01/17 08:22 Dose: 50 mls/hr Losartan Potassium (Cozaar) 100 mg GT DAILY [facility] Last Admin: 12/31/16 10:20 Dose: 100 mg Morphine Sulfate (Morphine) 2 mg IVP Q4H PRN PRN Reason: Pain, moderate (4-7) Last Admin: 12/31/16 09:18 Dose: 2 mg Ondansetron HCl (Zofran Inj) 4 mg IVP Q4H PRN PRN Reason: Nausea/Vomiting Last Admin: 12/30/16 10:42 Dose: 4 mg Pantoprazole Sodium (Protonix Inj) 40 mg IVP Q12 [facility] - Labs Labs: 01/01/17 06:00 01/01/17 06:00 PT 13.3 Seconds (9.9-11.8) H 12/29/16 07:15 INR 1.23 (0.93-1.08) H 12/29/16 07:15 APTT 34.9 Seconds (23.7-30.8) H 12/27/16 19:00 - Constitutional Appears: Non-toxic, No Acute Distress - Head Exam Head Exam: NORMAL INSPECTION - Eye Exam Eye Exam: Normal appearance - ENT Exam ENT Exam: Mucous Membranes Moist - Respiratory Exam Respiratory Exam: NORMAL BREATHING PATTERN. absent: Accessory Muscle Use, Respiratory Distress - Cardiovascular Exam Cardiovascular Exam: absent: Bradycardia, Tachycardia - GI/Abdominal Exam GI & Abdominal Exam: Distended (minimal), Soft. absent: Guarding, Tenderness - Rectal Exam Additional comments: improved induration and erythema of L buttock. areas of surrounding skin necrosis present. necrosis w/in wound and around wound edges. - Exam Exam: Scrotal Swelling Additional comments: bal catheter in place - Extremities Exam Extremities Exam: Pedal Edema - Neurological Exam Neurological Exam: Alert, Awake, Oriented x3 - Psychiatric Exam Psychiatric exam: Normal Affect, Normal Mood - Skin Skin Exam: Dry, Intact, Warm Assessment and Plan - Assessment and Plan (Free Text) Assessment: 76 M w/ POD#5 s/p I&D 2/2 ischiorectal abscess - NPO, IVF - IV Abx per ID - cont Pain management - Dressing changes prn - sitz baths/saline flushes w/ dressing changes - Cont medical management per primary Pt discussed w/ Dr. Shyam Cat DO PGY1
[2017-01-01] MEDS: Meropenem 1g/NS 100mL IVPB 1 GM/100 ML PIGGYBACK IVPB SCH ×2 (09:32→22:10)
[2017-01-01] MEDS: Linezolid 600 mg in D5W 300 ml 600 MG/300 ML BAG IVPB SCH ×2 (09:44→22:12)
--- NOTE | 2017-01-01 09:46 | RAD ---
HISTORY: NGT placement COMPARISON: 12/30/2016 FINDINGS: LUNGS: No active pulmonary disease. PLEURA: No significant pleural effusion identified, no pneumothorax apparent. CARDIOVASCULAR: Normal. OSSEOUS STRUCTURES: No significant abnormalities. VISUALIZED UPPER ABDOMEN: Normal. OTHER FINDINGS: Single lead pacemaker IMPRESSION: Nasogastric tube in suboptimal position in the distal esophagus
[2017-01-01] MEDS: Morphine 2 mg/ml ISec IVP PRN ×2 (10:04→18:18)
--- NOTE | 2017-01-01 14:51 | PN ---
DATE: 01/01/2017 REASON FOR CONSULTATION AND FOLLOWUP: Status post rectal abscess, drained; history of coronary arter y disease, status post pacemaker, possible intestinal obstruction. BRIEF CLINICAL HISTORY: This is a 76-year-old male with a past medical history significant for coron miley artery disease, status post PTCA in the past. Repeat catheterization in 2013, patent stent. Sta tus post pacemaker 02/20/2014. ____ first PTCA was done in 07/2013. Repeat catheterization 03/16/2014, patent stent. Recent stress test 03/01/2015 was negative, underwent drainage of rectal abscess. Now, patient has intestinal obstruction. Being followed by surgery, Dr. Howe, and has an NG suction. The patient claims that he is passing gas and moving his bowel. PHYSICAL EXAMINATION: As follows: VITAL SIGNS: Temperature afebrile, heart rate 61, blood pressure 131/62. HEENT: PERRLA. Extraocular muscles intact. NECK: Supple. No carotid bruits. No thyromegaly. CHEST: Clear to auscultation. HEART: S1, S2 regular. ABDOMEN: Soft. EXTREMITIES: Clubbing and cyanosis negative. BLOOD WORKUP: As follows: WBC 14.7, hemoglobin ____, hematocrit 34, platelet count 436. Chemistry shows sodium 147, potassium 4, chloride ____, carbon dioxide 23, anion gap ____, BUN 43, creatinine 1 .5. Total protein 5.6, albumin 2.2, albumin/globulin ratio 0.7. IMPRESSION: Protein calorie malnutrition, which was not present on admission. Intestinal obstructio n, rectal abscess with drainage, leukocytosis, sepsis, history of coronary artery disease status post stent in 2012. History of repeat catheterization, patent stenting in catheterization on 03/16/2014. Status post permanent pacemaker, 02/20/2014. Recent stress 03/01/2015 negative for ischemia, left suárez tid artery endarterectomy. Most recent MUGA scan 03/17/2015, ejection 58%. Normal IRAIS on 10/26/2016. RECOMMENDATION: Continue IV fluid, continue NG suction. Follow up surgically. Follow up, monitor e lectrolytes. We will follow with you. CVS status is stable. Thank you, Dr. Orantes for providing the opportunity in taking care of the patient. We will follow up the lab in the morning. Repeat the lab in the morning including mag phos. Gale Mora MD cc: [id number] TT: 01/01/2017 14:50:23 Confirmation # [id number] Dictation # [id number]
--- NOTE | 2017-01-01 15:11 | CP.PCM.PN ---
Subjective - Date & Time of Evaluation Date of Evaluation: 01/01/17 Time of Evaluation: 09:45 - Subjective Subjective: Still with NG tube, abdomen still distended but not painful, no fevers overnight , no diarrhea. Objective - Vital Signs/Intake and Output Vital Signs (last 24 hours): Temp Pulse Resp BP Pulse Ox 98 F 61 18 131/62 98 01/01/17 12:00 01/01/17 14:00 01/01/17 12:00 01/01/17 12:00 01/01/17 05:47 Intake and Output: 01/01/17 01/01/17 06:59 18:59 Intake Total 2600 Output Total 400 Balance 2200 - Medications Medications: Current Medications Acetaminophen (Tylenol 650mg/20.3ml Solution Ud) 650 mg GT Q4H PRN PRN Reason: Fever >100.4 F Albuterol/Ipratropium (Duoneb 3 Mg/0.5 Mg (3 Ml) Ud) 3 ml IH Q2H PRN PRN Reason: Shortness of Breath Last Admin: 12/29/16 23:47 Dose: 3 ml Aspirin (Aspirin Chewable) 81 mg PO DAILY [facility] Last Admin: 12/30/16 10:00 Dose: Not Given Heparin Sodium (Porcine) (Heparin) 5,000 units SC Q8 [facility] Last Admin: 01/01/17 13:12 Dose: 5,000 units Hydrochlorothiazide (Microzide) 12.5 mg GT DAILY [facility] Last Admin: 01/01/17 09:31 Dose: 12.5 mg Linezolid (Zyvox 600mg/300ml D5w) 600 mg in 300 mls @ 200 mls/hr IVPB Q12 ADRIANNE PRN Reason: Protocol Stop: 01/03/17 22:01 Last Admin: 01/01/17 09:44 Dose: 200 mls/hr Meropenem 1g/NS 100mL IVPB (Meropenem 1g/Ns 100ml Ivpb) 1 gm in 100 mls @ 100 mls/hr IVPB Q12 ADRIANNE PRN Reason: Protocol Stop: 01/07/17 22:01 Last Admin: 01/01/17 09:32 Dose: 100 mls/hr Sodium Chloride (Sodium Chloride 0.9%) 1,000 mls @ 50 mls/hr IV .Q20H [facility] Last Admin: 01/01/17 08:22 Dose: 50 mls/hr Losartan Potassium (Cozaar) 100 mg GT DAILY ADRIANNE Last Admin: 01/01/17 09:31 Dose: 100 mg Morphine Sulfate (Morphine) 2 mg IVP Q4H PRN PRN Reason: Pain, moderate (4-7) Last Admin: 01/01/17 10:04 Dose: 2 mg Ondansetron HCl (Zofran Inj) 4 mg IVP Q4H PRN PRN Reason: Nausea/Vomiting Last Admin: 12/30/16 10:42 Dose: 4 mg Pantoprazole Sodium (Protonix Inj) 40 mg IVP Q12 ADRIANNE Last Admin: 01/01/17 09:32 Dose: 40 mg - Labs Labs: 01/01/17 06:00 01/01/17 06:00 PT 13.3 Seconds (9.9-11.8) H 12/29/16 07:15 INR 1.23 (0.93-1.08) H 12/29/16 07:15 APTT 34.9 Seconds (23.7-30.8) H 12/27/16 19:00 - Constitutional Appears: Non-toxic, No Acute Distress - Head Exam Head Exam: NORMAL INSPECTION - ENT Exam Additional comments: NG tube in place - Neck Exam Neck Exam: absent: Lymphadenopathy, Meningismus - Respiratory Exam Respiratory Exam: Decreased Breath Sounds - Cardiovascular Exam Cardiovascular Exam: +S1, +S2 - GI/Abdominal Exam GI & Abdominal Exam: Distended, Soft. absent: Tenderness Assessment and Plan - Assessment and Plan (Free Text) Plan: Assessment Sepsis due to perirectal abscess S/P I and D POD #5 - cx growing Strep milleri and E. 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
--- NOTE | 2017-01-01 19:08 | CON ---
DATE: 01/01/2017 REASON FOR CONSULTATION: I have been asked to see this 76-year-old male with a history of prostate c ancer who was admitted to the hospital 5 days ago for constipation and severe perianal pain. He was noted to have a left perirectal abscess which was drained by Dr. Howe. The patient presented wit h sepsis with acute renal failure and coagulopathy with leukocytosis to 26,000. The patient has done well since his incision and drainage. I have been asked to see this patient because of an incidenta l finding of hepatitis C antibody. He denies any history of hepatitis C in the past. PAST MEDICAL HISTORY: Notable for prostate cancer, diabetes mellitus, hypertension, aortic regurgita tion, congestive heart failure. PAST SURGICAL HISTORY: Notable for permanent pacemaker placement. SOCIAL HISTORY: The patient quit smoking years ago. He denies alcohol use. FAMILY HISTORY: Noncontributory. REVIEW OF SYSTEMS: A 14-point review of systems is notable for perirectal pain. PHYSICAL EXAMINATION: GENERAL: Well-developed male lying in bed in no acute distress. VITAL SIGNS: Reveal temperature of 98, blood pressure 131/62, heart rate 61. HEENT: Reveals sclerae to be white, conjunctivae pink. NECK: Supple. CHEST: Reveals lungs to be clear. HEART: Reveals a regular rate and rhythm. ABDOMEN: Soft, nontender. RECTAL: Shows a packing in his left perianal area. LABORATORY DATA: Reveals white blood cell count 14.7, hemoglobin 11.2. Chemistries reveal BUN down to 43, creatinine 1.5. Procalcitonin is 0.86. AST is 75, ALT 53, alkaline phosphatase of 106. Sero logies reveal hepatitis C antibody positive. IMPRESSION: A 76-year-old male diabetic with left ischiorectal abscess, status post incision and dra posada with sepsis syndrome with an incidental finding of hepatitis C antibody positivity. He denies any prior knowledge of hepatitis C infection. This may be prior exposure to hepatitis C. RECOMMENDATIONS: 1. Await hepatitis C RNA quantitative. 2. Continue postop care of perirectal abscess. Bowen Mota MD cc: [phone] TT: 01/01/2017 19:07:55 Confirmation # [id number] Dictation # [id number] mn
--- NOTE | 2017-01-01 19:41 | CARD ---
APPROVED REPORT EXAM: Two-dimensional and M-mode echocardiogram with Doppler and color Doppler. INDICATION SEPSIS 2D DIMENSIONS Left Atrium (2D)4.7 (1.6-4.0cm)IVSd1.3 (0.7-1.1cm) LVDd5.5 (3.9-5.9cm)LVOT Diameter2.1 (1.8-2.4cm) PWd1.2 (0.7-1.1cm)LVDs4.0 (2.5-4.0cm) FS (%) 28.3 %LVEF (%)54.1 (>50%) M-Mode DIMENSIONS Aortic Root3.90 (2.2-3.7cm)Aortic Cusp Exc.1.50 (1.5-2.0cm) Aortic Valve AoV Peak Bmusdhdk179.0cm/sAoV VTI61.7cmAO Peak GR.26mmHg LVOT Peak Kqmtmhua491.0cm/sLVOT VTI28.20cmAO Mean GR.14mmHg GIULIA (VMAX)1.02ev1IEM (VTI)1.89kq3HB P 1/2 [id number] Mitral Valve E/A ratio0.0 TDI E/Lateral E'0.0E/Medial E'0.0 Pulmonary Valve PV Peak Jcmspoau599.0cm/sPV Peak Grad.4mmHg Tricuspid Valve TR Peak Gmivjozi377cn/sRAP [id number] Peak Gr.29mmHg [id number] LEFT VENTRICLE The left ventricle is normal size. There is mild concentric left ventricular hypertrophy. The left ventricular function is normal. There is normal LV segmental wall motion.EF-55-60% The left ventricular diastolic function is normal. No left ventricle thrombus noted on this study. There is no ventricular septal defect visualized. There is no left ventricular aneurysm. There is no mass noted in the left ventricle. RIGHT VENTRICLE The right ventricle is normal size. There is normal right ventricular wall thickness. The right ventricular systolic function is normal. AORTIC VALVE The aortic valve is calcified and displays decreased opening. There is mild to moderate aortic regurgitation. There is mild to moderate valvular aortic stenosis. There is no aortic valvular vegetation. MITRAL VALVE The mitral valve is calcified but opens well. Mitral regurgitation is mild to moderate. There is no mitral valve stenosis. There is no evidence of mitral valve prolapse. TRICUSPID VALVE The tricuspid valve leaflets are thickened , but open well. There is mild to moderate tricuspid regurgitation.RVSP-39 mm Hg There is no tricuspid valve stenosis. There is no tricuspid valve prolapse or vegetation. PULMONIC VALVE The pulmonic valve is not well visualized. There is no pulmonic valvular regurgitation. There is no pulmonic valvular stenosis. GREAT VESSELS The aortic root is normal in size. The ascending aorta is normal in size. The pulmonary artery is normal. The IVC was not visualized. PERICARDIAL EFFUSION There is no pleural effusion. There is no pericardial effusion. <Conclusion> The left ventricle is normal size. There is mild concentric left ventricular hypertrophy. The left ventricular function is normal. There is normal LV segmental wall motion.EF-55-60% There is mild to moderate aortic regurgitation. There is mild to moderate valvular aortic stenosis. Mitral regurgitation is mild to moderate. There is mild to moderate tricuspid regurgitation.RVSP-39 mm Hg
[2017-01-02 06:57] LABS: ADD MANUAL DIFF? NO
[2017-01-02 07:05] LABS: BASO # 0.03 K/mm3 (0.0-2.0); BASO % 0.2 % (0.0-3.0); EOS # 0.2 (0.0-0.7); EOS % 1.4 % (1.5-5.0); GRAN # 11.26 (1.4-6.5); GRAN % 80.1 % (50.0-68.0); HEMATOCRIT 34.3 % (42.0-52.0); LYMPH # 1.9 (1.2-3.4); LYMPH % 13.5 % (22.0-35.0); MEAN CELL VOLUME 91.2 fL (80.0-105.0); MEAN CORPUSCULAR HEMOGLOBIN 30.1 pg (25.0-35.0); MEAN CORPUSCULAR HGB CONC 32.9 g/dl (31.0-37.0); MONO # 0.7 (0.1-0.6); MONO % 4.8 % (1.0-6.0); PLATELET COUNT 386 10^3/uL (120.0-450.0); RED CELL DISTRIBUTION WIDTH 14.2 % (11.5-14.5); WHITE BLOOD COUNT 14.1 10^3/ul (4.5-11.0)
[2017-01-02 07:11] LABS: ALB/GLOB RATIO 0.7 (1.1-1.8); BILIRUBIN,TOTAL 0.6 mg/dL (0.2-1.3); CALCIUM 7.9 mg/dL (8.4-10.5); PHOSPHOROUS 2.9 mg/dL (2.5-4.5); POTASSIUM 3.2 mmol/L (3.6-5.0); TOTAL PROTEIN 5.4 g/dL (5.8-8.3)
--- NOTE | 2017-01-02 07:58 | PN ---
DATE: 01/02/2017 SUBJECTIVE: The patient appears comfortable this morning. He is not short of breath at rest. PHYSICAL EXAMINATION: VITAL SIGNS: Temperature is 99.5, pulse is 67, respiratory rate 18/20, blood pressure 159/60, oxygen saturation on nasal cannula is between 95%-98%. HEENT: Normocephalic, atraumatic. No JVD. CARDIOVASCULAR: Systolic ejection murmur at the lower left sternal border. No S3 gallop. LUNGS: Decreased breath sounds at the bases. Very minimal rhonchi. No wheezing. EXTREMITIES: Positive for mild edema. No cyanosis, no clubbing. Calves are nontender to palpation. GASTROINTESTINAL: Abdomen is soft. It remains distended. It is mildly tender to palpation. Bowel sounds are positive. SKIN: No acute rash. NEUROLOGIC: Limited at the present time. PERTINENT LABORATORY DATA: Chest x-ray was repeated yesterday and reviewed. Compared to the film of 12/30/2016, the film done yesterday shows a definite decrease in the left lower lobe consolidation. IMPRESSION: 1. Perirectal abscess. Status post surgery. 2. Left lower lobe pneumonia -- resolving. 3. Coronary artery disease. 4. Cardiomyopathy. 5. Mild anemia. PLAN: The patient appears comfortable this morning. He is not short of breath at rest. His abdomen does remain distended. However, he does state to feeling much better overall. On physical exam, no significant bronchospasm is noted. In addition, there is no significant alveolar-arterial gradient. I would continue with the incentive spirometry and have the patient out of bed if possible. The patient also gets nebulizer treatments on a p.r.n. basis. The patient remains on antibiotic therapy -- as per infectious disease. As noted above, the chest x-ray done yesterday shows definite improvement. I would continue with the GI and surgical evaluations. Inputs are noted. Clinical status of the patient is improved -- but remains guarded overall. I will discuss the above with Dr. Orantes. Jaden Romero MD cc: [phone] TT: 01/02/2017 07:58:00 Confirmation # [id number] Dictation # [id number] en [facility]
[2017-01-02] MEDS: Meropenem 1g/NS 100mL IVPB 1 GM/100 ML PIGGYBACK IVPB SCH ×2 (09:23→22:32)
[2017-01-02] MEDS ORDERED: Potassium Chloride 20 mEq ER Tab PO ONE (09:29)
--- NOTE | 2017-01-02 09:31 | CP.PCM.PN ---
<Ashlyn Moore - Last Filed: 01/02/17 10:13> Subjective - Date & Time of Evaluation Date of Evaluation: 01/02/17 Time of Evaluation: 07:20 - Subjective Subjective: Medicine progress note for Dr Orantes and Dr Sharpe Overnight, nurse felt patient had worsening abdominal distention, planned for ngt insertion, however patient had large bowel movement , and decision was made to not reinsert ngt. Patient is tolerating po. Patient reports he is feeling better overall. Patient denies cp, sob, nausea or vomiting. States the abdominal pain has improved. Patient denies fevers. On tele, patient has paced rhythm. Objective - Vital Signs/Intake and Output Vital Signs (last 24 hours): Temp Pulse Resp BP Pulse Ox 99.5 F 60 22 159/60 H 95 01/02/17 05:47 01/02/17 05:47 01/02/17 05:47 01/02/17 05:47 01/02/17 05:47 Intake and Output: 01/02/17 01/02/17 06:59 18:59 Intake Total 3510 Output Total 1500 Balance 2009 - Medications Medications: Current Medications Acetaminophen (Tylenol 650mg/20.3ml Solution Ud) 650 mg GT Q4H PRN PRN Reason: Fever >100.4 F Albuterol/Ipratropium (Duoneb 3 Mg/0.5 Mg (3 Ml) Ud) 3 ml IH Q2H PRN PRN Reason: Shortness of Breath Last Admin: 12/29/16 23:47 Dose: 3 ml Aspirin (Aspirin Chewable) 81 mg PO DAILY [facility] Last Admin: 01/02/17 09:22 Dose: 81 mg Heparin Sodium (Porcine) (Heparin) 5,000 units SC Q8 [facility] Last Admin: 01/02/17 05:23 Dose: 5,000 units Hydrochlorothiazide (Microzide) 12.5 mg GT DAILY [facility] Last Admin: 01/02/17 09:23 Dose: 12.5 mg Linezolid (Zyvox 600mg/300ml D5w) 600 mg in 300 mls @ 200 mls/hr IVPB Q12 ADRIANNE PRN Reason: Protocol Stop: 01/03/17 22:01 Last Admin: 01/01/17 22:12 Dose: 200 mls/hr Meropenem 1g/NS 100mL IVPB (Meropenem 1g/Ns 100ml Ivpb) 1 gm in 100 mls @ 100 mls/hr IVPB Q12 [facility] PRN Reason: Protocol Stop: 01/07/17 22:01 Last Admin: 01/02/17 09:23 Dose: 100 mls/hr Sodium Chloride (Sodium Chloride 0.9%) 1,000 mls @ 50 mls/hr IV .Q20H [facility] Last Admin: 01/01/17 08:22 Dose: 50 mls/hr Potassium Chloride (Potassium Chloride 10 Meq/100 Ml) 10 meq in 100 mls @ 100 mls/hr IVPB Q2H [facility] Stop: 01/02/17 12:29 Losartan Potassium (Cozaar) 100 mg GT DAILY [facility] Last Admin: 01/02/17 09:22 Dose: 100 mg Morphine Sulfate (Morphine) 2 mg IVP Q4H PRN PRN Reason: Pain, moderate (4-7) Last Admin: 01/01/17 18:18 Dose: 2 mg Ondansetron HCl (Zofran Inj) 4 mg IVP Q4H PRN PRN Reason: Nausea/Vomiting Last Admin: 12/30/16 10:42 Dose: 4 mg Pantoprazole Sodium (Protonix Inj) 40 mg IVP Q12 [facility] Last Admin: 01/02/17 09:23 Dose: 40 mg Potassium Chloride (K-Dur 20 Meq Er Tab) 40 meq PO ONCE ONE Stop: 01/02/17 09:30 Tamsulosin HCl (Flomax) 0.4 mg PO DAILY [facility] Last Admin: 01/02/17 09:23 Dose: 0.4 mg - Labs Labs: 01/02/17 06:15 01/02/17 06:15 PT 13.3 Seconds (9.9-11.8) H 12/29/16 07:15 INR 1.23 (0.93-1.08) H 12/29/16 07:15 APTT 34.9 Seconds (23.7-30.8) H 12/27/16 19:00 - Constitutional Appears: No Acute Distress, Chronically Ill - Head Exam Head Exam: ATRAUMATIC, NORMAL INSPECTION, NORMOCEPHALIC - Eye Exam Eye Exam: EOMI, Normal appearance, PERRL. absent: Scleral icterus - ENT Exam ENT Exam: Mucous Membranes Moist - Neck Exam Neck Exam: Normal Inspection - Respiratory Exam Respiratory Exam: Decreased Breath Sounds, Clear to Ausculation Bilateral (base. ), NORMAL BREATHING PATTERN. absent: Rales, Rhonchi, Wheezes, Respiratory Distress, Stridor - Cardiovascular Exam Cardiovascular Exam: REGULAR RHYTHM, RRR, +S1, +S2. absent: Murmur - GI/Abdominal Exam GI & Abdominal Exam: Distended, Firm, Soft, Hypoactive Bowel Sounds. absent: Guarding, Rigid, Tenderness - Extremities Exam Extremities Exam: Pedal Edema (+2) - Back Exam Back Exam: absent: vertebral tenderness - Neurological Exam Neurological Exam: Alert, Awake, Oriented x3 - Psychiatric Exam Psychiatric exam: Normal Affect, Normal Mood - Skin Skin Exam: Dry, Normal Color, Warm Assessment and Plan - Assessment and Plan (Free Text) Assessment: Patient is a 76 y/o M w/ PMH of CAD with stents in the past, AR, h/o prostate ca s/p robotic reconstruction, Gerd, hld, 3rd degree AV block s/p PPM, h/o dilated cardiomyopathy, and htn admitted with perirectal abscess s/p surgery day 5. Patient developed SBO, and chest x-ray revealed possible pneumonia. Plan: 1) HAP with Left lower lobe infiltrate -procal elevated - continue merrem and zyvox - saturating well on room air - prn duoneb - continue inentive spirometer. 2) Sepsis 2nd to perirectal abscess - Afebrile, leukocytosis continue to trend down - s/p surgery - no growth on blood culture, rectal abscess culture growing strep and ecoli - on antibiotics for broaspectrum coverage. - ID and surgery following 3) Hypokalemia - Will replete and will continue to monitor. 4) Mechanical SBO. - s/p ngt, removed 01/01 - tolarated po - continue to pass gas and have watery bowel movement - blaoted abdomen, will give semethicone. 5) Diarrhea likely secondary to laxative - c diff negative 6) Kaia-rectal abscess s/p surgery - surgical incision management as per surgical team 7) DENISE - bun/creat continue to trending down - will continue to monitor. 8) Transaminitis- - improved - hep panel with HCV antibody positive - HCV RNA pending 9) CAD w/ stents - on hctz and cozaar for htn - continue asa 10) Normocytic anemia- likely dilutional - h/h stable, will monitor 11) DVT and GI prophylaxis: protonix and heparin sc. 12) Dispo- pending PT Patient seen, examined, discussed with Dr Sharpe. <Woody Sharpe - Last Filed: 01/24/17 14:58> Objective - Vital Signs/Intake and Output Vital Signs (last 24 hours): Temp Pulse Resp BP Pulse Ox 98.2 F 62 20 118/54 L 98 01/24/17 12:00 01/24/17 12:00 01/24/17 12:00 01/24/17 12:00 01/24/17 06:00 Intake and Output: 01/24/17 01/24/17 06:59 18:59 Intake Total 320 600 Output Total 1600 600 Balance -1280 0 - Medications Medications: Current Medications Acetaminophen (Tylenol 650mg/20.3ml Solution Ud) 650 mg GT Q4H PRN PRN Reason: Fever >100.4 F Last Admin: 01/24/17 10:42 Dose: 650 mg Al Hydrox/Mg Hydrox/Simethicone (Maalox Plus 30 Ml) 30 ml PO DAILY PRN PRN Reason: Indigestion / Heartburn Last Admin: 01/23/17 04:07 Dose: 30 ml Albuterol/Ipratropium (Duoneb 3 Mg/0.5 Mg (3 Ml) Ud) 3 ml IH Q2H PRN PRN Reason: Shortness of Breath Last Admin: 01/18/17 08:29 Dose: 3 ml Aspirin (Aspirin Chewable) 81 mg PO DAILY [facility] Last Admin: 01/24/17 10:37 Dose: 81 mg Bismuth Subsalicylate (Pepto-Bismol) 262 mg PO DAILY PRN PRN Reason: GI upset Diphenhydramine HCl (Benadryl) 25 mg PO HS PRN PRN Reason: Insomnia Last Admin: 01/24/17 00:10 Dose: 25 mg Ferrous Sulfate (Feosol) 324 mg PO TID [facility] Last Admin: 01/24/17 13:24 Dose: 324 mg Heparin Sodium (Porcine) (Heparin) 5,000 units SC Q8 [facility] Last Admin: 01/24/17 13:25 Dose: 5,000 units Hydrochlorothiazide (Hydrodiuril) 25 mg GT DAILY [facility] Last Admin: 01/24/17 10:37 Dose: 25 mg Losartan Potassium (Cozaar) 100 mg GT DAILY [facility] Last Admin: 01/24/17 10:37 Dose: 100 mg Multivitamins (Thera Tab) 1 tab PO DAILY [facility] Last Admin: 01/24/17 10:36 Dose: 1 tab Ondansetron HCl (Zofran Inj) 4 mg IVP Q4H PRN PRN Reason: Nausea/Vomiting Last Admin: 01/06/17 21:58 Dose: 4 mg Ondansetron HCl (Zofran Inj) 4 mg IVP ONCE PRN PRN Reason: Nausea/Vomiting Simethicone (Mylicon Chew Tab) 80 mg PO [facility] Last Admin: 01/24/17 13:24 Dose: 80 mg Simethicone (Mylicon Chew Tab) 80 mg PO Q6H PRN PRN Reason: GI distress Last Admin: 01/23/17 04:08 Dose: 80 mg - Labs Labs: 01/22/17 06:00 01/22/17 06:00 PT 12.6 Seconds (9.9-11.8) H 01/10/17 12:30 INR 1.17 (0.93-1.08) H 01/10/17 12:30 APTT 33.4 Seconds (23.7-30.8) H 01/10/17 12:30 Attending/Attestation - Attestation I have personally seen and examined this patient.: Yes I have fully participated in the care of the patient.: Yes I have reviewed all pertinent clinical information, including history, physical exam and plan: Yes Notes (Text): 01/24/17 14:58 Medical record note made by the resident after discussion with my direction and input after the patient was personally seen and examined by me. I have reviewed the chart and agree that the record accurately reflects by personal performance of the history, physical exam, data review, and medical decision-making, in the course for the patient. I have also personally directed the plan of care.
--- NOTE | 2017-01-02 11:46 | PN ---
DATE: 01/02/2017 REASON FOR CONSULTATION AND FOLLOWUP: Status post rectal abscess, drained, history of coronary arter y disease, history of pacemaker, possible intestinal obstruction. BRIEF CLINICAL HISTORY: A 76-year-old male with past medical history significant for coronary artery disease, status post PTCA in the past, repeat catheterization in 2013, patent stent, status post per manent pacemaker in 06/2014. First PTCA was done in 07/2013. Repeat catheterization 03/16/2014 was a patent stent. Recent stress test 03/01/2014 was negative, underwent drainage of rectal abscess ____ i ntestinal obstruction. Now patient is moving the bowel and gas, still abdomen distended, on IV fluid , still n.p.o. PHYSICAL EXAMINATION: VITAL SIGNS: Temperature afebrile, heart rate 60, blood pressure 159/60. HEENT: PERRLA. Extraocular muscles intact. NECK: Supple. No carotid bruits. No thyromegaly. CHEST: Clear to auscultation. HEART: S1, S2 regular. ABDOMEN: Soft. EXTREMITIES: Clubbing and cyanosis negative. LABORATORY DATA: Blood workup as follows: WBC ____, hemoglobin ____, hematocrit 34.3, platelet coun t 383. Chemistry: Sodium 142, potassium 3.2, chloride 116, carbon dioxide 23, anion gap of 8, BUN _ ___, creatinine 1.4, albumin 2.2. IMPRESSION: Protein calorie malnutrition because n.p.o., which was not present on admission. Admitt ing albumin was 3.2, now is 2.2 which is severe protein-calorie malnutrition. Hypokalemia, anemia, h istory of coronary artery disease, stent in 07/2013. Repeat catheterization in 2013, patent stent, r ecent stress test in 02/2015 negative, status post permanent pacemaker 02/20/2014, normal IRAIS 10/26/2016 . Recent MUGA scan 03/17/2015, ejection fraction 58%. RECOMMENDATION: Continue gentle hydration. If prolonged ____ consider starting PPN because patient is getting protein calorie malnutrition. Supplement electrolytes. Continue DVT prophylaxis. Continu e antibiotic. Will give p.r.n. hydralazine for blood pressure. We will follow. Thank you, Dr. Orantes, for the opportunity in taking care of the patient. Gale Mora MD cc: [phone] TT: 01/02/2017 11:46:05 Confirmation # [id number] Dictation # [id number] rn
[2017-01-02] MEDS: Linezolid 600 mg in D5W 300 ml 600 MG/300 ML BAG IVPB SCH ×2 (13:27→22:33)
--- NOTE | 2017-01-02 14:05 | PN ---
DATE: 01/02/2017 SUBJECTIVE: The patient is lying in bed. He still experiences some nausea. He has had multiple loo se bowel movements. He denies any vomiting. He has no appetite. PHYSICAL EXAMINATION: VITAL SIGNS: Reveal temperature of 98, blood pressure 149/65, heart rate 61. ABDOMEN: Softly distended, tympanitic, nontender. EXTREMITIES: Show trace pedal edema. LABORATORY DATA: Reveal white blood cell count 14.1, hemoglobin 11.3. Chemistries reveal potassium of 3.2, BUN 39, creatinine 1.4. IMPRESSION: A 76-year-old male admitted to the hospital with large ischiorectal abscess, sepsis, fou nd to have hepatitis C antibody positivity, recently complicated with small bowel obstruction. The p atient has had multiple bowel movements over the last several days. His abdomen remains distended. RECOMMENDATIONS: 1. Will obtain an obstructive series of the abdomen. 2. Check hepatitis C RNA quantitative. 3. Check stool for Clostridium difficile toxin. Bowen Mota MD cc: [phone] TT: 01/02/2017 14:04:40 Confirmation # [id number] Dictation # [id number]
[2017-01-02] MEDS: Morphine 2 mg/ml ISec IVP PRN (14:15)
[2017-01-02] MEDS: Simethicone 80 mg Chewtab PO PRN (18:06)
--- NOTE | 2017-01-02 19:09 | CP.PCM.PN ---
Subjective - Date & Time of Evaluation Date of Evaluation: 01/02/17 Time of Evaluation: 10:55 - Subjective Subjective: Now the NG tube has been removed, feeling better, no fevers overnight. Objective - Vital Signs/Intake and Output Vital Signs (last 24 hours): Temp Pulse Resp BP Pulse Ox 98 F 61 18 159/65 H 95 01/02/17 18:00 01/02/17 18:00 01/02/17 18:00 01/02/17 18:00 01/02/17 05:47 Intake and Output: 01/02/17 01/03/17 18:59 06:59 Intake Total 600 Output Total 501 Balance 99 - Medications Medications: Current Medications Acetaminophen (Tylenol 650mg/20.3ml Solution Ud) 650 mg GT Q4H PRN PRN Reason: Fever >100.4 F Albuterol/Ipratropium (Duoneb 3 Mg/0.5 Mg (3 Ml) Ud) 3 ml IH Q2H PRN PRN Reason: Shortness of Breath Last Admin: 12/29/16 23:47 Dose: 3 ml Aspirin (Aspirin Chewable) 81 mg PO DAILY [facility] Last Admin: 01/02/17 09:22 Dose: 81 mg Heparin Sodium (Porcine) (Heparin) 5,000 units SC Q8 [facility] Last Admin: 01/02/17 13:27 Dose: 5,000 units Hydralazine HCl (Apresoline) 10 mg IVP Q6 PRN PRN Reason: FOR SBP>160 and Distolic>100 Hydrochlorothiazide (Microzide) 12.5 mg GT DAILY [facility] Last Admin: 01/02/17 09:23 Dose: 12.5 mg Linezolid (Zyvox 600mg/300ml D5w) 600 mg in 300 mls @ 200 mls/hr IVPB Q12 [facility] PRN Reason: Protocol Stop: 01/03/17 22:01 Last Admin: 01/02/17 13:27 Dose: 200 mls/hr Meropenem 1g/NS 100mL IVPB (Meropenem 1g/Ns 100ml Ivpb) 1 gm in 100 mls @ 100 mls/hr IVPB Q12 [facility] PRN Reason: Protocol Stop: 01/07/17 22:01 Last Admin: 01/02/17 09:23 Dose: 100 mls/hr Sodium Chloride (Sodium Chloride 0.9%) 1,000 mls @ 50 mls/hr IV .Q20H [facility] Last Admin: 01/01/17 08:22 Dose: 50 mls/hr Losartan Potassium (Cozaar) 100 mg GT DAILY [facility] Last Admin: 01/02/17 09:22 Dose: 100 mg Morphine Sulfate (Morphine) 2 mg IVP Q4H PRN PRN Reason: Pain, moderate (4-7) Last Admin: 01/02/17 14:15 Dose: 2 mg Ondansetron HCl (Zofran Inj) 4 mg IVP Q4H PRN PRN Reason: Nausea/Vomiting Last Admin: 12/30/16 10:42 Dose: 4 mg Pantoprazole Sodium (Protonix Inj) 40 mg IVP Q12 [facility] Last Admin: 01/02/17 09:23 Dose: 40 mg Simethicone (Mylicon Chew Tab) 80 mg PO PCHS PRN PRN Reason: GI distress Last Admin: 01/02/17 18:06 Dose: 80 mg Tamsulosin HCl (Flomax) 0.4 mg PO DAILY [facility] Last Admin: 01/02/17 09:23 Dose: 0.4 mg - Labs Labs: 01/02/17 06:15 01/02/17 06:15 PT 13.3 Seconds (9.9-11.8) H 12/29/16 07:15 INR 1.23 (0.93-1.08) H 12/29/16 07:15 APTT 34.9 Seconds (23.7-30.8) H 12/27/16 19:00 - Constitutional Appears: Non-toxic, No Acute Distress - Head Exam Head Exam: NORMAL INSPECTION - Neck Exam Neck Exam: absent: Lymphadenopathy, Meningismus - Respiratory Exam Respiratory Exam: Decreased Breath Sounds - Cardiovascular Exam Cardiovascular Exam: +S1, +S2 - GI/Abdominal Exam GI & Abdominal Exam: Soft. absent: Tenderness Assessment and Plan - Assessment and Plan (Free Text) Plan: Assessment Sepsis due to perirectal abscess S/P I and D POD #6 - cx growing Strep milleri and E. 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
[2017-01-02] MEDS: Sodium Chloride 0.9% 1,000 ML IV SCH (22:26)
[2017-01-02 23:16] LABS: HEPATITIS C VIRAL RNA QUAL Not detected
[2017-01-03] MEDS: Morphine 2 mg/ml ISec IVP PRN (02:05)
[2017-01-03] MEDS: Simethicone 80 mg Chewtab PO PRN ×2 (02:06→16:05)
[2017-01-03 07:45] LABS: ADD MANUAL DIFF? NO
[2017-01-03 08:04] LABS: BASO # 0.05 K/mm3 (0.0-2.0); BASO % 0.3 % (0.0-3.0); EOS # 0.3 (0.0-0.7); GRAN # 11.45 (1.4-6.5); GRAN % 79.6 % (50.0-68.0); HEMATOCRIT 34.5 % (42.0-52.0); LYMPH % 13.6 % (22.0-35.0); MEAN CELL VOLUME 91.3 fL (80.0-105.0); MEAN CORPUSCULAR HEMOGLOBIN 29.9 pg (25.0-35.0); MEAN CORPUSCULAR HGB CONC 32.8 g/dl (31.0-37.0); MEAN PLATELET VOLUME 9.6 fl (7.0-11.0); MONO # 0.7 (0.1-0.6); MONO % 4.5 % (1.0-6.0); PLATELET COUNT 370 10^3/uL (120.0-450.0); RED CELL DISTRIBUTION WIDTH 14.2 % (11.5-14.5); WHITE BLOOD COUNT 14.4 10^3/ul (4.5-11.0)
[2017-01-03 08:10] LABS: ALB/GLOB RATIO 0.7 (1.1-1.8); ALKALINE PHOSPHATASE 88 U/L (38-133); ALT/SGPT 62 U/L (7-56); AST/SGOT 57 U/L (15-59); BILIRUBIN,TOTAL 0.6 mg/dL (0.2-1.3); BLOOD UREA NITROGEN 33 mg/dL (7-21); CALCIUM 7.9 mg/dL (8.4-10.5); CARBON DIOXIDE 25 mmol/L (21-33); CHLORIDE 113 mmol/L (95-110); GFR AFRICAN-AMERICAN > 60; GLUCOSE,RANDOM 137 mg/dL (70-110); POTASSIUM 3.4 mmol/L (3.6-5.0); SODIUM 144 mmol/L (132-148); TOTAL PROTEIN 5.4 g/dL (5.8-8.3)
[2017-01-03] MEDS ORDERED: Potassium Chloride 20 mEq ER Tab PO ONE (09:25)
--- NOTE | 2017-01-03 09:49 | PN ---
DATE: 01/03/2017 SUBJECTIVE: The patient appears comfortable this morning. He is not short of breath at rest. OBJECTIVE: VITAL SIGNS: Temperature is 98.8, pulse 64, respirations 18, blood pressure 138 /57. Oxygen saturation on room air is 95%. HEENT: Normocephalic, atraumatic. No JVD. CARDIOVASCULAR: Systolic ejection murmur at the lower left sternal border. No S3 gallop. LUNGS: Decreased breath sounds at the bases. No rhonchi or wheezing this morning. EXTREMITIES: Positive for mild edema. No cyanosis, no clubbing. Calves are nontender to palpation. GASTROINTESTINAL: Abdomen is soft. It is less distended and less tender to palpation. Bowel sounds are positive. SKIN: No acute rash. NEUROLOGIC: Limited at the present time. IMPRESSION: 1. Perirectal abscess. Status post surgery. 2. Left lower lobe pneumonia -- resolving. 3. Coronary artery disease. 4. Cardiomyopathy. 5. Mild anemia. PLAN: The patient appears very comfortable this morning. He is not short of breath at rest. His abdomen is less distended. He states to feeling much better overall. On physical exam, there is no significant bronchospasm noted. In addition, there is no significant alveolar arterial gradient. Oxygen saturation on room air is now 95%. I will continue with the nebulizer treatments as ordered and frequent incentive spirometry. I would also like to see the patient out of bed more often. The patient remains on antibiotic therapy -- as per infectious disease. Temperatures have resolved. The leukocytosis is resolving. I would continue with the surgical and gastroenterology evaluations. Inputs are noted. Clinical status of the patient is certainly improved -- compared to the initial presentation. I will discuss the above with the attending physician this morning. Jaden Romero MD cc: [id number] TT: 01/03/2017 09:48:30 Confirmation # [id number] Dictation # [id number] madeline [email or web address]
[2017-01-03] MEDS: Linezolid 600 mg in D5W 300 ml 600 MG/300 ML BAG IVPB SCH ×2 (10:00→22:08)
--- NOTE | 2017-01-03 10:05 | PN ---
DATE: 01/03/2017 SUBJECTIVE: The patient is lying in bed, weak. He still complains of abdominal distention and disco mfort. He has not had any further nausea and vomiting. He continues to have loose bowel movements. He denies any rectal bleeding. Abdominal pain is less. PHYSICAL EXAMINATION: VITAL SIGNS: Reveal temperature of 98.8, blood pressure 130/57, heart rate is 64. ABDOMEN: Distended, soft. Diminished bowel sounds. EXTREMITIES: Show trace pedal edema. LABORATORY DATA: Reveal white blood cell count 14.1, hemoglobin 11.3, BUN 39, creatinine 1.4, potass ium 3.2. Repeat obstructive series shows decreasing small bowel dilatation. Air-fluid levels are st ill present. Stool for C. diff toxin from 12/31 is negative. IMPRESSION: A 76-year-old male admitted to the hospital with a large ischiorectal abscess, status po st incision and drainage, sepsis syndrome. Postoperative course complicated by a partial small bowel obstruction which is clinically improving. He is moving his bowels. In fact, he is having diarrhea . The patient was incidentally found to have [id number] C antibody positive. His hepatitis C RNA is negative. This means that the patient had prior exposure to hepatitis C virus, but cleared spontane ously. There is no treatment needed for the hepatitis C at this time. RECOMMENDATIONS: 1. I have spoken with the patient's nurse to ask her to keep the patient out of bed in a chair and t o get physical therapy to help ambulate the patient. I think this will help his partial small bowel obstruction. 2. Slow diet advancement. 3. Replace potassium. Bowen Mota MD cc: [phone] TT: 01/03/2017 10:04:48 Confirmation # [id number] Dictation # [id number] tn
--- NOTE | 2017-01-03 10:39 | PN ---
DATE: 01/03/2017 REASON FOR CONSULTATION AND FOLLOWUP: Status post rectal abscess, drained, history of coronary arter y disease, pacemaker, intestinal ileus. BRIEF CLINICAL HISTORY: A 76-year-old male with past medical history significant for coronary artery disease, status post PTCA in 2012, repeat catheterization in 2013, patent stent, stress test in 2014 was negative, status post pacemaker, admitted with rectal abscess, went into ileus, was n.p.o. on IV fluid, has protein calorie malnutrition, moderate, which was not present on admission. PHYSICAL EXAMINATION: VITAL SIGNS: Temperature afebrile, heart rate 64, blood pressure 138/57. HEENT: PERRLA. Extraocular muscles intact. NECK: Supple. No carotid bruits. No thyromegaly. CHEST: Clear to auscultation. HEART: S1, S2 regular. ABDOMEN: Distended, soft, bowel sounds present. EXTREMITIES: Clubbing and cyanosis, 1-2+ pedal edema. LABORATORY DATA: Blood workup as follows: WBC 14.4, hemoglobin ____, hematocrit 34.5, platelet coun t 370. Chemistry shows sodium 130, potassium 3.0, chloride 95, carbon dioxide 22, anion gap of 21, B UN ____, creatinine 2.3. IMPRESSION: Acute kidney injury on chronic renal insufficiency, third spacing, protein-calorie malnu trition was not present on admission, moderate to severe peripheral edema secondary to protein-calori e malnutrition, intestinal obstruction, rectal abscess, status post drainage, hypokalemia, ileus, his tory of coronary artery disease, status post stent in 2012, history of repeat catheterization in 2013 , patent stent, history of a stress test ____ status post pacemaker, history of left carotid artery e ndarterectomy, MUGA scan shows ejection fraction preserved. RECOMMENDATION: We will give gentle diuretics at 20 mL. Increase nutritional support. If prolonged n.p.o., suggest to consider PPN to increase nutritional support. Discussed with the patient. We tigist l follow with you. Thank you, Dr. Orantes, for providing the opportunity in taking care of this patient. IV fluid decr eased to ____ mL an hour for insensible loss. Will follow with you. Gale Mora MD cc: [facility] TT: 01/03/2017 10:38:33 Confirmation # [id number] Dictation # [id number] rn
[2017-01-03] MEDS: Meropenem 1g/NS 100mL IVPB 1 GM/100 ML PIGGYBACK IVPB SCH ×2 (12:37→22:08)
--- NOTE | 2017-01-03 13:02 | RAD ---
HISTORY: abdominal pain COMPARISON: 12/30/2016 FINDINGS: BOWEL: There is no change in the appearance of obstruction. Multiple dilated loops of small bowel are seen BONES: Normal. OTHER FINDINGS: None. IMPRESSION: There is no change in the appearance of obstruction. Multiple dilated loops of small bowel are seen
--- NOTE | 2017-01-03 13:26 | CP.PCM.PN ---
Subjective - Date & Time of Evaluation Date of Evaluation: 01/03/17 Time of Evaluation: 08:00 - Subjective Subjective: General Surgery Progress Note for Dr. Howe Pt was seen and examined at bedside. No acute complaints at this time. No acute or adverse events overnight as per nursing team . Pt admitted to having a bm and to passing flatus. She is also tolerating po intake at this time. Pt denied fever, chills, n/v/d/c. Objective - Vital Signs/Intake and Output Vital Signs (last 24 hours): Temp Pulse Resp BP Pulse Ox 98.8 F 63 20 177/64 H 95 01/03/17 00:01 01/03/17 10:00 01/03/17 00:01 01/03/17 10:05 01/03/17 00:01 Intake and Output: 01/03/17 01/03/17 06:59 18:59 Intake Total 120 240 Output Total 2 3 Balance 118 237 - Medications Medications: Current Medications Acetaminophen (Tylenol 650mg/20.3ml Solution Ud) 650 mg GT Q4H PRN PRN Reason: Fever >100.4 F Albuterol/Ipratropium (Duoneb 3 Mg/0.5 Mg (3 Ml) Ud) 3 ml IH Q2H PRN PRN Reason: Shortness of Breath Last Admin: 12/29/16 23:47 Dose: 3 ml Aspirin (Aspirin Chewable) 81 mg PO DAILY [facility] Last Admin: 01/03/17 10:02 Dose: 81 mg Diphenhydramine HCl (Benadryl) 25 mg PO HS PRN PRN Reason: Insomnia Last Admin: 01/03/17 02:30 Dose: 25 mg Heparin Sodium (Porcine) (Heparin) 5,000 units SC Q8 [facility] Last Admin: 01/03/17 05:12 Dose: 5,000 units Hydralazine HCl (Apresoline) 10 mg IVP Q6 PRN PRN Reason: FOR SBP>160 and Distolic>100 Hydrochlorothiazide (Microzide) 12.5 mg GT DAILY [facility] Last Admin: 01/03/17 10:02 Dose: 12.5 mg Linezolid (Zyvox 600mg/300ml D5w) 600 mg in 300 mls @ 200 mls/hr IVPB Q12 [facility] PRN Reason: Protocol Stop: 01/03/17 22:01 Last Admin: 01/03/17 10:00 Dose: 200 mls/hr Meropenem 1g/NS 100mL IVPB (Meropenem 1g/Ns 100ml Ivpb) 1 gm in 100 mls @ 100 mls/hr IVPB Q12 [facility] PRN Reason: Protocol Stop: 01/07/17 22:01 Last Admin: 01/03/17 12:37 Dose: 100 mls/hr Sodium Chloride (Sodium Chloride 0.9%) 1,000 mls @ 50 mls/hr IV .Q20H [facility] Last Admin: 01/02/17 22:26 Dose: 50 mls/hr Potassium Chloride (Potassium Chloride 10 Meq/100 Ml) 10 meq in 100 mls @ 100 mls/hr IVPB Q2H [facility] Stop: 01/03/17 15:29 Last Admin: 01/03/17 12:23 Dose: 100 mls/hr Losartan Potassium (Cozaar) 100 mg GT DAILY [facility] Last Admin: 01/03/17 10:02 Dose: 100 mg Morphine Sulfate (Morphine) 2 mg IVP Q4H PRN PRN Reason: Pain, moderate (4-7) Last Admin: 01/02/17 14:15 Dose: 2 mg Ondansetron HCl (Zofran Inj) 4 mg IVP Q4H PRN PRN Reason: Nausea/Vomiting Last Admin: 12/30/16 10:42 Dose: 4 mg Pantoprazole Sodium (Protonix Inj) 40 mg IVP Q12 [facility] Last Admin: 01/03/17 10:02 Dose: 40 mg Simethicone (Mylicon Chew Tab) 80 mg PO HS PRN PRN Reason: GI distress Last Admin: 01/03/17 02:06 Dose: 80 mg Tamsulosin HCl (Flomax) 0.4 mg PO DAILY [facility] Last Admin: 01/03/17 10:02 Dose: 0.4 mg - Labs Labs: 01/03/17 07:00 01/03/17 07:00 PT 13.3 Seconds (9.9-11.8) H 12/29/16 07:15 INR 1.23 (0.93-1.08) H 12/29/16 07:15 APTT 34.9 Seconds (23.7-30.8) H 12/27/16 19:00 - Constitutional Appears: Well - Head Exam Head Exam: ATRAUMATIC, NORMAL INSPECTION, NORMOCEPHALIC - Eye Exam Eye Exam: EOMI, Normal appearance, PERRL - ENT Exam ENT Exam: Mucous Membranes Moist, Normal Exam - Respiratory Exam Respiratory Exam: Clear to Ausculation Bilateral, NORMAL BREATHING PATTERN - Cardiovascular Exam Cardiovascular Exam: REGULAR RHYTHM, +S1, +S2. absent: Murmur - GI/Abdominal Exam GI & Abdominal Exam: Soft, Normal Bowel Sounds. absent: Tenderness - Exam Additional comments: bal in place - Extremities Exam Extremities Exam: Full ROM, Normal Capillary Refill, Normal Inspection. absent : Joint Swelling, Pedal Edema - Neurological Exam Neurological Exam: Alert, Awake, CN II-XII Intact, Normal Gait, Oriented x3 - Psychiatric Exam Psychiatric exam: Normal Affect, Normal Mood - Skin Skin Exam: Dry, Intact, Normal Color, Warm Assessment and Plan - Assessment and Plan (Free Text) Assessment: 76 M w/ POD#6 s/p I&D 2/2 ischiorectal abscess - Tolerating PO intake, IVF - IV Abx per ID - cont Pain management - Dressing changes prn - sitz baths/saline flushes w/ dressing changes - Cont medical management per primary Seen reviewed and discussed with attending Sunny Orellana PGY-1
--- NOTE | 2017-01-03 13:43 | CP.PCM.PN ---
<Ashlyn Moore - Last Filed: 01/03/17 15:31> Subjective - Date & Time of Evaluation Date of Evaluation: 01/03/17 Time of Evaluation: 07:25 - Subjective Subjective: Medicine progress note for Dr Orantes and Dr Sharpe Patient reports insomnia last night and was giving Benadryl. Patient reports he is still experiencing loose bowel movement. Patient's still passing gas from below and above. Abdomen still feels uncomfortable, no appetite. Patient denies cp, sob, cough or fever. Patient denies nausea or vomiting. Objective - Vital Signs/Intake and Output Vital Signs (last 24 hours): Temp Pulse Resp BP Pulse Ox 98.8 F 63 20 177/64 H 95 01/03/17 00:01 01/03/17 10:00 01/03/17 00:01 01/03/17 10:05 01/03/17 00:01 Intake and Output: 01/03/17 01/03/17 06:59 18:59 Intake Total 120 240 Output Total 2 3 Balance 118 237 - Medications Medications: Current Medications Acetaminophen (Tylenol 650mg/20.3ml Solution Ud) 650 mg GT Q4H PRN PRN Reason: Fever >100.4 F Albuterol/Ipratropium (Duoneb 3 Mg/0.5 Mg (3 Ml) Ud) 3 ml IH Q2H PRN PRN Reason: Shortness of Breath Last Admin: 12/29/16 23:47 Dose: 3 ml Aspirin (Aspirin Chewable) 81 mg PO DAILY [facility] Last Admin: 01/03/17 10:02 Dose: 81 mg Diphenhydramine HCl (Benadryl) 25 mg PO HS PRN PRN Reason: Insomnia Last Admin: 01/03/17 02:30 Dose: 25 mg Heparin Sodium (Porcine) (Heparin) 5,000 units SC Q8 [facility] Last Admin: 01/03/17 05:12 Dose: 5,000 units Hydralazine HCl (Apresoline) 10 mg IVP Q6 PRN PRN Reason: FOR SBP>160 and Distolic>100 Hydrochlorothiazide (Microzide) 12.5 mg GT DAILY [facility] Last Admin: 01/03/17 10:02 Dose: 12.5 mg Linezolid (Zyvox 600mg/300ml D5w) 600 mg in 300 mls @ 200 mls/hr IVPB Q12 [facility] PRN Reason: Protocol Stop: 01/03/17 22:01 Last Admin: 01/03/17 10:00 Dose: 200 mls/hr Meropenem 1g/NS 100mL IVPB (Meropenem 1g/Ns 100ml Ivpb) 1 gm in 100 mls @ 100 mls/hr IVPB Q12 [facility] PRN Reason: Protocol Stop: 01/07/17 22:01 Last Admin: 01/03/17 12:37 Dose: 100 mls/hr Sodium Chloride (Sodium Chloride 0.9%) 1,000 mls @ 50 mls/hr IV .Q20H [facility] Last Admin: 01/02/17 22:26 Dose: 50 mls/hr Potassium Chloride (Potassium Chloride 10 Meq/100 Ml) 10 meq in 100 mls @ 100 mls/hr IVPB Q2H [facility] Stop: 01/03/17 15:29 Last Admin: 01/03/17 12:23 Dose: 100 mls/hr Losartan Potassium (Cozaar) 100 mg GT DAILY [facility] Last Admin: 01/03/17 10:02 Dose: 100 mg Morphine Sulfate (Morphine) 2 mg IVP Q4H PRN PRN Reason: Pain, moderate (4-7) Last Admin: 01/02/17 14:15 Dose: 2 mg Ondansetron HCl (Zofran Inj) 4 mg IVP Q4H PRN PRN Reason: Nausea/Vomiting Last Admin: 12/30/16 10:42 Dose: 4 mg Pantoprazole Sodium (Protonix Inj) 40 mg IVP Q12 [facility] Last Admin: 01/03/17 10:02 Dose: 40 mg Simethicone (Mylicon Chew Tab) 80 mg PO PCHS PRN PRN Reason: GI distress Last Admin: 01/03/17 02:06 Dose: 80 mg Tamsulosin HCl (Flomax) 0.4 mg PO DAILY [facility] Last Admin: 01/03/17 10:02 Dose: 0.4 mg - Labs Labs: 01/03/17 07:00 01/03/17 07:00 PT 13.3 Seconds (9.9-11.8) H 12/29/16 07:15 INR 1.23 (0.93-1.08) H 12/29/16 07:15 APTT 34.9 Seconds (23.7-30.8) H 12/27/16 19:00 - Constitutional Appears: No Acute Distress, Chronically Ill - Head Exam Head Exam: ATRAUMATIC, NORMAL INSPECTION, NORMOCEPHALIC - Eye Exam Eye Exam: EOMI, Normal appearance, PERRL. absent: Scleral icterus - ENT Exam ENT Exam: Mucous Membranes Dry - Neck Exam Neck Exam: Normal Inspection - Respiratory Exam Respiratory Exam: Decreased Breath Sounds, NORMAL BREATHING PATTERN. absent: Rales, Rhonchi, Wheezes, Respiratory Distress, Stridor - Cardiovascular Exam Cardiovascular Exam: REGULAR RHYTHM, RRR, +S1, +S2. absent: Murmur - GI/Abdominal Exam GI & Abdominal Exam: Distended, Soft, Tenderness (b/l lower quadrants.), Hypoactive Bowel Sounds. absent: Guarding - Extremities Exam Extremities Exam: Pedal Edema (+2) - Back Exam Back Exam: NORMAL INSPECTION - Neurological Exam Neurological Exam: Alert, Awake, Oriented x3 - Psychiatric Exam Psychiatric exam: Depressed - Skin Skin Exam: Normal Color, Warm Assessment and Plan - Assessment and Plan (Free Text) Assessment: Patient is a 76 y/o with PMH of htn, h/o dilated cardiomyopathy, h/o 3rd degree av block s/p PPM, h/o prostate ca s/p robotic reconstruction surgery presented with rectal pain and found to have zaira-rectal abscess s/p surgery POD# 6. Patient developed pneumonia during the course of hospitalization. Patient also developed mechanical SOB, and currently have abdominal distention, and uncontrolled diarrhea. Plan: 1) Distended abdomen secondary to mechanical SBO. - Patient had ngt inserted on Sunday, removed 01/01 - abdomen still distended - Patient with profuse diarrhea - c. diff negative - Repeat c diff pending - continue simethicone - ns@50cc 2) Severely malnourished - with low albumin - will obtain bath attendant referral - will consider tpn. 3) HAP - continue duoneb prn - continue merrem and zyvox 4) Sepsis 2nd to Perirectal abscess s/p surgery - sepsis resolving - on abx 5) Perirectal abscess s/p surgery - post op wound care as per surgery - grew ecoli and strep intermidius - 6) Hypokalemia from gi loss - Will replete and will continue to monitor. 7) DENISE - resolved - will continue to monitor. 8) Transaminitis- - improved -HCV antibody positive, qual negative 9) CAD w/ stents - on hctz and cozaar for htn, hydralazine prn - continue asa 10) Normocytic anemia- likely dilutional - h/h stable, will monitor 11) DVT and GI prophylaxis: protonix and heparin sc. 12) Dispo- TRCU when medically optimized. Patient seen, examined, discussed with Dr Sharpe. <Woody Sharpe - Last Filed: 01/25/17 18:40> Objective - Vital Signs/Intake and Output Vital Signs (last 24 hours): Temp Pulse Resp BP Pulse Ox 98.2 F 62 20 118/54 L 98 01/24/17 12:00 01/24/17 12:00 01/24/17 12:00 01/24/17 12:00 01/24/17 06:00 Intake and Output: 01/24/17 01/24/17 06:59 18:59 Intake Total 320 600 Output Total 1600 600 Balance -1280 0 - Medications Medications: Current Medications Acetaminophen (Tylenol 650mg/20.3ml Solution Ud) 650 mg GT Q4H PRN PRN Reason: Fever >100.4 F Last Admin: 01/24/17 10:42 Dose: 650 mg Al Hydrox/Mg Hydrox/Simethicone (Maalox Plus 30 Ml) 30 ml PO DAILY PRN PRN Reason: Indigestion / Heartburn Last Admin: 01/23/17 04:07 Dose: 30 ml Albuterol/Ipratropium (Duoneb 3 Mg/0.5 Mg (3 Ml) Ud) 3 ml IH Q2H PRN PRN Reason: Shortness of Breath Last Admin: 01/18/17 08:29 Dose: 3 ml Aspirin (Aspirin Chewable) 81 mg PO DAILY [facility] Last Admin: 01/24/17 10:37 Dose: 81 mg Bismuth Subsalicylate (Pepto-Bismol) 262 mg PO DAILY PRN PRN Reason: GI upset Diphenhydramine HCl (Benadryl) 25 mg PO HS PRN PRN Reason: Insomnia Last Admin: 01/24/17 00:10 Dose: 25 mg Ferrous Sulfate (Feosol) 324 mg PO TID [facility] Last Admin: 01/24/17 13:24 Dose: 324 mg Heparin Sodium (Porcine) (Heparin) 5,000 units SC Q8 [facility] Last Admin: 01/24/17 13:25 Dose: 5,000 units Hydrochlorothiazide (Hydrodiuril) 25 mg GT DAILY [facility] Last Admin: 01/24/17 10:37 Dose: 25 mg Losartan Potassium (Cozaar) 100 mg GT DAILY [facility] Last Admin: 01/24/17 10:37 Dose: 100 mg Multivitamins (Thera Tab) 1 tab PO DAILY [facility] Last Admin: 01/24/17 10:36 Dose: 1 tab Ondansetron HCl (Zofran Inj) 4 mg IVP Q4H PRN PRN Reason: Nausea/Vomiting Last Admin: 01/06/17 21:58 Dose: 4 mg Ondansetron HCl (Zofran Inj) 4 mg IVP ONCE PRN PRN Reason: Nausea/Vomiting Simethicone (Mylicon Chew Tab) 80 mg PO [facility] Last Admin: 01/24/17 13:24 Dose: 80 mg Simethicone (Mylicon Chew Tab) 80 mg PO Q6H PRN PRN Reason: GI distress Last Admin: 01/23/17 04:08 Dose: 80 mg - Labs Labs: 01/22/17 06:00 01/22/17 06:00 PT 12.6 Seconds (9.9-11.8) H 01/10/17 12:30 INR 1.17 (0.93-1.08) H 01/10/17 12:30 APTT 33.4 Seconds (23.7-30.8) H 01/10/17 12:30 Attending/Attestation - Attestation I have personally seen and examined this patient.: Yes I have fully participated in the care of the patient.: Yes I have reviewed all pertinent clinical information, including history, physical exam and plan: Yes Notes (Text): 01/24/17 15:10 Medical record note made by the resident after discussion with my direction and input after the patient was personally seen and examined by me. I have reviewed the chart and agree that the record accurately reflects by personal performance of the history, physical exam, data review, and medical decision-making, in the course for the patient. I have also personally directed the plan of care.
[2017-01-03] MEDS: metroNIDAZOLE IV 500 mg/100 ml 500 MG/100 ML BAG IVPB SCH ×2 (16:05→22:07)
--- NOTE | 2017-01-03 20:22 | CP.PCM.PN ---
Subjective - Date & Time of Evaluation Date of Evaluation: 01/03/17 Time of Evaluation: 11:30 - Subjective Subjective: Comfortable, no abdominal pain currently, no fevers. Objective - Vital Signs/Intake and Output Vital Signs (last 24 hours): Temp Pulse Resp BP Pulse Ox 98.6 F 94 H 19 137/58 L 95 01/03/17 19:21 01/03/17 19:21 01/03/17 19:21 01/03/17 19:21 01/03/17 00:01 Intake and Output: 01/03/17 01/04/17 18:59 06:59 Intake Total 240 Output Total 3 Balance 237 - Medications Medications: Current Medications Acetaminophen (Tylenol 650mg/20.3ml Solution Ud) 650 mg GT Q4H PRN PRN Reason: Fever >100.4 F Albuterol/Ipratropium (Duoneb 3 Mg/0.5 Mg (3 Ml) Ud) 3 ml IH Q2H PRN PRN Reason: Shortness of Breath Last Admin: 12/29/16 23:47 Dose: 3 ml Aspirin (Aspirin Chewable) 81 mg PO DAILY [facility] Last Admin: 01/03/17 10:02 Dose: 81 mg Diphenhydramine HCl (Benadryl) 25 mg PO HS PRN PRN Reason: Insomnia Last Admin: 01/03/17 02:30 Dose: 25 mg Heparin Sodium (Porcine) (Heparin) 5,000 units SC Q8 [facility] Last Admin: 01/03/17 14:46 Dose: 5,000 units Hydralazine HCl (Apresoline) 10 mg IVP Q6 PRN PRN Reason: FOR SBP>160 and Distolic>100 Hydrochlorothiazide (Microzide) 12.5 mg GT DAILY [facility] Last Admin: 01/03/17 10:02 Dose: 12.5 mg Linezolid (Zyvox 600mg/300ml D5w) 600 mg in 300 mls @ 200 mls/hr IVPB Q12 [facility] PRN Reason: Protocol Stop: 01/03/17 22:01 Last Admin: 01/03/17 10:00 Dose: 200 mls/hr Meropenem 1g/NS 100mL IVPB (Meropenem 1g/Ns 100ml Ivpb) 1 gm in 100 mls @ 100 mls/hr IVPB Q12 [facility] PRN Reason: Protocol Stop: 01/07/17 22:01 Last Admin: 01/03/17 12:37 Dose: 100 mls/hr Sodium Chloride (Sodium Chloride 0.9%) 1,000 mls @ 50 mls/hr IV .Q20H [facility] Last Admin: 01/02/17 22:26 Dose: 50 mls/hr Metronidazole (Flagyl) 500 mg in 100 mls @ 100 mls/hr IVPB Q8 [facility] PRN Reason: Protocol Stop: 01/17/17 16:01 Last Admin: 01/03/17 16:05 Dose: 100 mls/hr Losartan Potassium (Cozaar) 100 mg GT DAILY [facility] Last Admin: 01/03/17 10:02 Dose: 100 mg Morphine Sulfate (Morphine) 2 mg IVP Q4H PRN PRN Reason: Pain, moderate (4-7) Last Admin: 01/02/17 14:15 Dose: 2 mg Ondansetron HCl (Zofran Inj) 4 mg IVP Q4H PRN PRN Reason: Nausea/Vomiting Last Admin: 12/30/16 10:42 Dose: 4 mg Pantoprazole Sodium (Protonix Inj) 40 mg IVP Q12 [facility] Last Admin: 01/03/17 10:02 Dose: 40 mg Simethicone (Mylicon Chew Tab) 80 mg PO PCHS PRN PRN Reason: GI distress Last Admin: 01/03/17 16:05 Dose: 80 mg Tamsulosin HCl (Flomax) 0.4 mg PO DAILY [facility] Last Admin: 01/03/17 10:02 Dose: 0.4 mg - Labs Labs: 01/03/17 07:00 01/03/17 07:00 PT 13.3 Seconds (9.9-11.8) H 12/29/16 07:15 INR 1.23 (0.93-1.08) H 12/29/16 07:15 APTT 34.9 Seconds (23.7-30.8) H 12/27/16 19:00 - Constitutional Appears: Non-toxic, No Acute Distress - Head Exam Head Exam: NORMAL INSPECTION - ENT Exam ENT Exam: Mucous Membranes Moist - Neck Exam Neck Exam: absent: Lymphadenopathy, Meningismus - Respiratory Exam Respiratory Exam: Decreased Breath Sounds - Cardiovascular Exam Cardiovascular Exam: +S1, +S2 - GI/Abdominal Exam GI & Abdominal Exam: Soft. absent: Tenderness Assessment and Plan - Assessment and Plan (Free Text) Plan: Assessment Sepsis due to perirectal abscess S/P I and D POD #7 - cx growing Strep milleri and E. 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
[2017-01-03] MEDS: Sodium Chloride 0.9% 1,000 ML IV SCH (22:10)
[2017-01-04] MEDS: metroNIDAZOLE IV 500 mg/100 ml 500 MG/100 ML BAG IVPB SCH ×3 (06:16→22:20)
[2017-01-04 06:52] LABS: ADD MANUAL DIFF? NO
[2017-01-04 06:59] LABS: BASO # 0.03 K/mm3 (0.0-2.0); BASO % 0.2 % (0.0-3.0); EOS # 0.2 (0.0-0.7); EOS % 1.7 % (1.5-5.0); GRAN # 11.02 (1.4-6.5); LYMPH # 1.7 (1.2-3.4); LYMPH % 12.6 % (22.0-35.0); MEAN CELL VOLUME 91.1 fL (80.0-105.0); MEAN CORPUSCULAR HEMOGLOBIN 30.2 pg (25.0-35.0); MEAN CORPUSCULAR HGB CONC 33.1 g/dl (31.0-37.0); MEAN PLATELET VOLUME 9.8 fl (7.0-11.0); MONO # 0.8 (0.1-0.6); MONO % 5.5 % (1.0-6.0); PLATELET COUNT 358 10^3/uL (120.0-450.0); RED CELL DISTRIBUTION WIDTH 13.9 % (11.5-14.5); WHITE BLOOD COUNT 13.8 10^3/ul (4.5-11.0)
[2017-01-04 08:03] LABS: ALB/GLOB RATIO 0.7 (1.1-1.8); ALKALINE PHOSPHATASE 62 U/L (38-133); ALT/SGPT 46 U/L (7-56); AST/SGOT 35 U/L (15-59); BILIRUBIN,TOTAL 0.7 mg/dL (0.2-1.3); BLOOD UREA NITROGEN 31 mg/dL (7-21); CALCIUM 7.8 mg/dL (8.4-10.5); CARBON DIOXIDE 24 mmol/L (21-33); CHLORIDE 111 mmol/L (98-107); GFR AFRICAN-AMERICAN > 60; GLUCOSE,RANDOM 135 mg/dL (70-110); MAGNESIUM 1.7 mg/dL (1.7-2.2); PHOSPHOROUS 3.2 mg/dL (2.5-4.5); POTASSIUM 3.7 mmol/L (3.6-5.0); SODIUM 140 mmol/L (132-148); TOTAL PROTEIN 5.3 g/dL (5.8-8.3)
--- NOTE | 2017-01-04 08:07 | CP.PCM.PN ---
Subjective - Date & Time of Evaluation Date of Evaluation: 01/04/17 Time of Evaluation: 07:00 - Subjective Subjective: General Surgery Progress Note for Dr. Howe Pt was seen and examined at bedside. No acute complaints at this time. No acute or adverse events overnight as per nursing team. Pt states that he is feeling better today compared to yesterday. Pt admitted to having a bm and to passing flatus. Duncan is in place. He is also tolerating po intake at this time. Pt denied fever, chills, n/v/c. Objective - Vital Signs/Intake and Output Vital Signs (last 24 hours): Temp Pulse Resp BP Pulse Ox 98.6 F 61 20 160/65 H 100 01/04/17 06:00 01/04/17 06:00 01/04/17 06:00 01/04/17 06:00 01/04/17 06:00 Intake and Output: 01/04/17 01/04/17 06:59 18:59 Intake Total 600 Balance 600 - Medications Medications: Current Medications Acetaminophen (Tylenol 650mg/20.3ml Solution Ud) 650 mg GT Q4H PRN PRN Reason: Fever >100.4 F Albuterol/Ipratropium (Duoneb 3 Mg/0.5 Mg (3 Ml) Ud) 3 ml IH Q2H PRN PRN Reason: Shortness of Breath Last Admin: 12/29/16 23:47 Dose: 3 ml Aspirin (Aspirin Chewable) 81 mg PO DAILY [facility] Last Admin: 01/03/17 10:02 Dose: 81 mg Diphenhydramine HCl (Benadryl) 25 mg PO HS PRN PRN Reason: Insomnia Last Admin: 01/04/17 01:54 Dose: 25 mg Heparin Sodium (Porcine) (Heparin) 5,000 units SC Q8 [facility] Last Admin: 01/04/17 06:16 Dose: 5,000 units Hydralazine HCl (Apresoline) 10 mg IVP Q6 PRN PRN Reason: FOR SBP>160 and Distolic>100 Hydrochlorothiazide (Microzide) 12.5 mg GT DAILY [facility] Last Admin: 01/03/17 10:02 Dose: 12.5 mg Meropenem 1g/NS 100mL IVPB (Meropenem 1g/Ns 100ml Ivpb) 1 gm in 100 mls @ 100 mls/hr IVPB Q12 [facility] PRN Reason: Protocol Stop: 01/07/17 22:01 Last Admin: 01/03/17 22:08 Dose: 100 mls/hr Sodium Chloride (Sodium Chloride 0.9%) 1,000 mls @ 50 mls/hr IV .Q20H [facility] Last Admin: 01/03/17 22:10 Dose: 50 mls/hr Metronidazole (Flagyl) 500 mg in 100 mls @ 100 mls/hr IVPB Q8 [facility] PRN Reason: Protocol Stop: 01/17/17 16:01 Last Admin: 01/04/17 06:16 Dose: 100 mls/hr Losartan Potassium (Cozaar) 100 mg GT DAILY [facility] Last Admin: 01/03/17 10:02 Dose: 100 mg Morphine Sulfate (Morphine) 2 mg IVP Q4H PRN PRN Reason: Pain, moderate (4-7) Last Admin: 01/02/17 14:15 Dose: 2 mg Ondansetron HCl (Zofran Inj) 4 mg IVP Q4H PRN PRN Reason: Nausea/Vomiting Last Admin: 12/30/16 10:42 Dose: 4 mg Pantoprazole Sodium (Protonix Inj) 40 mg IVP Q12 [facility] Last Admin: 01/03/17 22:09 Dose: 40 mg Simethicone (Mylicon Chew Tab) 80 mg PO HS PRN PRN Reason: GI distress Last Admin: 01/03/17 16:05 Dose: 80 mg Tamsulosin HCl (Flomax) 0.4 mg PO DAILY [facility] Last Admin: 01/03/17 10:02 Dose: 0.4 mg - Labs Labs: 01/04/17 06:30 01/04/17 06:30 PT 13.3 Seconds (9.9-11.8) H 12/29/16 07:15 INR 1.23 (0.93-1.08) H 12/29/16 07:15 APTT 34.9 Seconds (23.7-30.8) H 12/27/16 19:00 - Constitutional Appears: No Acute Distress - Head Exam Head Exam: ATRAUMATIC, NORMAL INSPECTION, NORMOCEPHALIC - Eye Exam Eye Exam: EOMI, Normal appearance, PERRL Pupil Exam: NORMAL ACCOMODATION, PERRL - ENT Exam ENT Exam: Mucous Membranes Moist, Normal Exam - Neck Exam Neck Exam: Full ROM, Normal Inspection. absent: Lymphadenopathy - Respiratory Exam Respiratory Exam: Clear to Ausculation Bilateral, NORMAL BREATHING PATTERN - Cardiovascular Exam Cardiovascular Exam: REGULAR RHYTHM, +S1, +S2. absent: Murmur - GI/Abdominal Exam GI & Abdominal Exam: Soft, Normal Bowel Sounds. absent: Tenderness - Extremities Exam Extremities Exam: Full ROM, Normal Capillary Refill, Normal Inspection. absent : Joint Swelling, Pedal Edema - Neurological Exam Neurological Exam: Alert, Awake, CN II-XII Intact, Oriented x3 - Psychiatric Exam Psychiatric exam: Normal Affect, Normal Mood - Skin Skin Exam: Dry, Intact, Normal Color, Warm Assessment and Plan - Assessment and Plan (Free Text) Assessment: 76 M w/ POD#7 s/p I&D 2/2 ischiorectal abscess - Tolerating PO intake, IVF - IV Abx per ID, FU Cdiff as per GI - cont Pain management - Dressing changes prn - sitz baths/saline flushes w/ dressing changes - Cont medical management per primary Seen reviewed and discussed with attending Sunny Orellana PGY-1
[2017-01-04] MEDS: Meropenem 1g/NS 100mL IVPB 1 GM/100 ML PIGGYBACK IVPB SCH ×2 (09:29→22:18)
[2017-01-04] MEDS ORDERED: Potassium Chloride 20 mEq ER Tab PO ONE ×2 (10:01→13:00)
--- NOTE | 2017-01-04 10:31 | PN ---
DATE: 01/04/2017 REASON FOR CONSULTATION AND FOLLOWUP: Status post rectal abscess, drained, history of coronary arter y disease, pacemaker, intestinal ileus. BRIEF CLINICAL HISTORY: A 76-year-old male with past medical history significant for coronary artery disease, status post PTCA in the past, history of repeat catheterization in 2013, patent stent, stre ss test in 2014 was negative, history of permanent pacemaker, who was admitted with rectal abscess, s tatus post rectal abscess drained, was really deep. Postop course complicated with an ileus. PHYSICAL EXAMINATION: VITAL SIGNS: Temperature afebrile, heart rate ____, blood pressure 148/61. HEENT: PERRLA. Extraocular muscles intact. NECK: Supple. No carotid bruits. No thyromegaly. CHEST: Clear to auscultation. HEART: S1, S2 regular. ABDOMEN: Soft. Bowel sounds present. EXTREMITIES: Clubbing and cyanosis negative. LABORATORY DATA: Blood workup as follows: WBC 13.8, hemoglobin ____, hematocrit 35.0, platelet coun t 358. Chemistry shows sodium 140, potassium 3.7, chloride 111, carbon dioxide 24, anion gap of 9, B UN ____, creatinine 1.2, protein 2.1. IMPRESSION: Protein calorie malnutrition, severe, which was not present on admission, third spacing edema of the leg, BNP elevated, coronary artery disease, preserved left ventricular function. MUGA s can shows preserved left ventricular function, status post permanent pacemaker. RECOMMENDATION: We will give gentle diuretics, history of acute kidney injury now improved. Because of third spacing will give 1 dose of Lasix. We will supplement potassium, increase food as tolerate d. If patient remains n.p.o. or is not adequate, consider PPN. Will follow with you. Gale Mora MD cc: [id number] TT: 01/04/2017 10:30:36 Confirmation # [id number] Dictation # [id number]
--- NOTE | 2017-01-04 11:00 | PN ---
DATE: 01/04/2017 SUBJECTIVE: The patient is lying in bed, comfortable. He is slowly improving. He still has abdomin al distention. He still has diarrhea. He denies any nausea and vomiting. Abdominal cramping is les s. PHYSICAL EXAMINATION: VITAL SIGNS: Reveal temperature of 98.6, blood pressure 160/65, heart rate 61. ABDOMEN: Distended with diminished bowel sounds. Nontender. LABORATORY DATA: Reveal white blood cell count 13.8, hemoglobin 11.6. Chemistries reveal potassium 3.7, chloride of 111. IMPRESSION: A 76-year-old male status post incision and drainage of ischiorectal abscess with postop erative partial small bowel obstruction, clinically improving slowly. RECOMMENDATIONS: 1. Continue IV meropenem and Flagyl. 2. Encourage ambulation with the assistance of physical therapy. 3. Out of bed to chair. Bowen Mota MD cc: [phone] TT: 01/04/2017 10:59:53 Confirmation # [id number] Dictation # [id number]
--- NOTE | 2017-01-04 15:45 | CP.PCM.PN ---
<Ashlyn Moore - Last Filed: 01/04/17 21:25> Subjective - Date & Time of Evaluation Date of Evaluation: 01/04/17 Time of Evaluation: 08:00 - Subjective Subjective: Medicine progress note for Dr Orantes and Dr Sharpe Patient reported 1 large bowel movement last time. Patient still distended, but states he is feeling better overall. Patient had PT yesterday, states he was able to walk 15 minutes and sat on the chair for few minutes. Patient admits to flatus, denies nausea, fever, or chills. Objective - Vital Signs/Intake and Output Vital Signs (last 24 hours): Temp Pulse Resp BP Pulse Ox 98.3 F 61 18 160/65 H 100 01/04/17 12:00 01/04/17 12:00 01/04/17 12:00 01/04/17 14:47 01/04/17 06:00 Intake and Output: 01/04/17 01/04/17 06:59 18:59 Intake Total 600 240 Balance 600 240 - Medications Medications: Current Medications Acetaminophen (Tylenol 650mg/20.3ml Solution Ud) 650 mg GT Q4H PRN PRN Reason: Fever >100.4 F Albuterol/Ipratropium (Duoneb 3 Mg/0.5 Mg (3 Ml) Ud) 3 ml IH Q2H PRN PRN Reason: Shortness of Breath Last Admin: 12/29/16 23:47 Dose: 3 ml Aspirin (Aspirin Chewable) 81 mg PO DAILY [facility] Last Admin: 01/04/17 09:35 Dose: 81 mg Diphenhydramine HCl (Benadryl) 25 mg PO HS PRN PRN Reason: Insomnia Last Admin: 01/04/17 01:54 Dose: 25 mg Heparin Sodium (Porcine) (Heparin) 5,000 units SC Q8 [facility] Last Admin: 01/04/17 14:46 Dose: 5,000 units Hydralazine HCl (Apresoline) 10 mg IVP Q6 PRN PRN Reason: FOR SBP>160 and Distolic>100 Hydrochlorothiazide (Microzide) 12.5 mg GT DAILY [facility] Last Admin: 01/04/17 09:34 Dose: 12.5 mg Meropenem 1g/NS 100mL IVPB (Meropenem 1g/Ns 100ml Ivpb) 1 gm in 100 mls @ 100 mls/hr IVPB Q12 [facility] PRN Reason: Protocol Stop: 01/07/17 22:01 Last Admin: 01/04/17 09:29 Dose: 100 mls/hr Sodium Chloride (Sodium Chloride 0.9%) 1,000 mls @ 50 mls/hr IV .Q20H [facility] Last Admin: 01/03/17 22:10 Dose: 50 mls/hr Metronidazole (Flagyl) 500 mg in 100 mls @ 100 mls/hr IVPB Q8 [facility] PRN Reason: Protocol Stop: 01/17/17 16:01 Last Admin: 01/04/17 14:52 Dose: 100 mls/hr Losartan Potassium (Cozaar) 100 mg GT DAILY [facility] Last Admin: 01/04/17 09:35 Dose: 100 mg Morphine Sulfate (Morphine) 2 mg IVP Q4H PRN PRN Reason: Pain, moderate (4-7) Last Admin: 01/02/17 14:15 Dose: 2 mg Ondansetron HCl (Zofran Inj) 4 mg IVP Q4H PRN PRN Reason: Nausea/Vomiting Last Admin: 01/04/17 14:49 Dose: 4 mg Pantoprazole Sodium (Protonix Inj) 40 mg IVP Q12 [facility] Last Admin: 01/04/17 09:34 Dose: 40 mg Simethicone (Mylicon Chew Tab) 80 mg PO PCHS PRN PRN Reason: GI distress Last Admin: 01/03/17 16:05 Dose: 80 mg Tamsulosin HCl (Flomax) 0.4 mg PO DAILY [facility] Last Admin: 01/04/17 09:35 Dose: 0.4 mg - Labs Labs: 01/04/17 06:30 01/04/17 06:30 PT 13.3 Seconds (9.9-11.8) H 12/29/16 07:15 INR 1.23 (0.93-1.08) H 12/29/16 07:15 APTT 34.9 Seconds (23.7-30.8) H 12/27/16 19:00 - Constitutional Appears: No Acute Distress - Head Exam Head Exam: ATRAUMATIC, NORMAL INSPECTION, NORMOCEPHALIC - Eye Exam Eye Exam: Normal appearance. absent: Scleral icterus - ENT Exam ENT Exam: Mucous Membranes Moist - Neck Exam Neck Exam: Normal Inspection - Respiratory Exam Respiratory Exam: Decreased Breath Sounds, Wheezes, NORMAL BREATHING PATTERN. absent: Rales, Rhonchi, Respiratory Distress, Stridor - Cardiovascular Exam Cardiovascular Exam: REGULAR RHYTHM, +S1, +S2. absent: Gallop, Irregular Rhythm , Rubs - GI/Abdominal Exam GI & Abdominal Exam: Distended, Soft, Hypoactive Bowel Sounds. absent: Firm, Guarding, Rigid, Tenderness - Extremities Exam Extremities Exam: Pedal Edema - Back Exam Back Exam: NORMAL INSPECTION, tenderness (sacral region) - Neurological Exam Neurological Exam: Alert, Awake, Oriented x3 - Psychiatric Exam Psychiatric exam: Depressed - Skin Skin Exam: Normal Color, Warm Additional comments: rectal region with surrounding erythema, dressing intact. Assessment and Plan - Assessment and Plan (Free Text) Assessment: Patient is a 76 y/o with PMH of htn, h/o dilated cardiomyopathy, h/o 3rd degree av block s/p PPM, h/o prostate ca s/p robotic reconstruction surgery presented with rectal pain and found to have zaira-rectal abscess s/p surgery POD# 7. Patient developed pneumonia during the course of hospitalization. Patient also developed mechanical SOB, and currently have abdominal distention, and uncontrolled diarrhea. The abdominal distention is improving. Plan: 1) Distended abdomen secondary to mechanical SBO. - Patient had ngt inserted on Sunday, removed 01/01 - abdomenal distention is improving - diarrhea seem to be improving - c. diff negative - will d/c flagyl - continue simethicone - ns@50cc 2) Severely malnourished - with low albumin - will obtain gardener florist referral - will consider tpn. On full liquid diet. 3) HAP - continue duoneb prn - continue merrem and zyvox, will follow up with ID for possible abx down grade. 4) Sepsis 2nd to Perirectal abscess s/p surgery - sepsis resolving, leukocytosis continue to trend down. - on abx for pneumonia 5) Perirectal abscess s/p surgery - post op wound care as per surgery - grew ecoli and strep intermidius - completed abx. 6) Hypokalemia from gi loss - Will replete and will continue to monitor. 7) DENISE - resolved - will continue to monitor. 8) Transaminitis- - improved -HCV antibody positive, qual negative 9) CAD w/ stents - on hctz and cozaar for htn, hydralazine prn - continue asa 10) Normocytic anemia- likely dilutional - h/h stable, will monitor 11) DVT and GI prophylaxis: protonix and heparin sc. 12) Dispo- pending, PT today Patient seen, examined, discussed with Dr Sharpe. <Woody Sharpe - Last Filed: 01/25/17 18:45> Objective - Vital Signs/Intake and Output Vital Signs (last 24 hours): Temp Pulse Resp BP Pulse Ox 98.3 F 62 18 129/57 L 95 01/25/17 17:50 01/25/17 17:50 01/25/17 17:50 01/25/17 17:50 01/25/17 06:00 Intake and Output: 01/25/17 01/25/17 06:59 18:59 Intake Total 560 200 Output Total 900 400 Balance -340 -200 - Labs Labs: 01/22/17 06:00 01/22/17 06:00 PT 12.6 Seconds (9.9-11.8) H 01/10/17 12:30 INR 1.17 (0.93-1.08) H 01/10/17 12:30 APTT 33.4 Seconds (23.7-30.8) H 01/10/17 12:30 Attending/Attestation - Attestation I have personally seen and examined this patient.: Yes I have fully participated in the care of the patient.: Yes I have reviewed all pertinent clinical information, including history, physical exam and plan: Yes Notes (Text): 01/25/17 18:45 Medical record note made by the resident after discussion with my direction and input after the patient was personally seen and examined by me. I have reviewed the chart and agree that the record accurately reflects by personal performance of the history, physical exam, data review, and medical decision-making, in the course for the patient. I have also personally directed the plan of care.
--- NOTE | 2017-01-04 16:24 | CP.PCM.CON ---
History of Present Illness - History of Present Illness History of Present Illness: Surgery Consult: Dr. Pimentel Pt is a 76M with PMHx of HTN, HLD, CHF and hemorrhoids who presented to [facility] on for complaints of rectal pain. Pt was found to have a perirectal abscess with a white count of 25.9 and taken to the OR emergently for I&D. Found to have an significant ischiorectal abscess intra-op which was drained and pt started on broad spectrum IV ABX. Hospital course was initially complicated by ileus secondary to all the inflammation. Pt was placed on bowel rest and his ileus as well as sepsis improved. However, he developed diarrhea which has now been going on for a few days. Due to proximity of the wound to the rectum, it has been hard to keep it clean from all the liquid stool and wound bed has become slightly necrotic but remains open/draining. At this point, pt is clinically improving, however the family would like a second opinion and that's why Dr. Pimentel has been consulted. PMHx: as stated above PSHx: CEA, pacemaker, renal stent, TURP, cataracts, laminectomy SocialHx: quit smoking 4yrs ago, [id number], Denies EtOH/drugs Review of Systems - Review of Systems All systems: reviewed and no additional remarkable complaints except (as per HPI ) Past Patient History - Tetanus Immunizations Tetanus Immunization: Unknown - Past Medical History & Family History Past Medical History?: Yes - Past Social History Smoking Status: Former Smoker - CARDIAC Hx Cardiac Disorders: Yes Hx Hypertension: Yes - PULMONARY Hx Respiratory Disorders: No - NEUROLOGICAL Hx Neurological Disorder: No - HEENT Hx HEENT Problems: Yes - RENAL Hx Chronic Kidney Disease: Yes Other/Comment: renal stent 2013 - ENDOCRINE/METABOLIC Hx Endocrine Disorders: No - HEMATOLOGICAL/ONCOLOGICAL Hx Blood Disorders: No - INTEGUMENTARY Hx Dermatological Problems: No - MUSCULOSKELETAL/RHEUMATOLOGICAL Hx Falls: No - GASTROINTESTINAL Hx Gastrointestinal Disorders: No - GENITOURINARY/GYNECOLOGICAL Hx Genitourinary Disorders: Yes 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 2010) - PSYCHIATRIC Hx Psychophysiologic Disorder: No Hx Emotional Abuse: No Hx Physical Abuse: No Hx Substance Use: No - SURGICAL HISTORY Other/Comment: renal stents. left carotid endarectomy 2012 - ANESTHESIA Hx Anesthesia: Yes Hx Anesthesia Reactions: No Hx Malignant Hyperthermia: No Meds Allergies/Adverse Reactions: Allergies Allergy/AdvReac Type Severity Reaction Status Date / Time No Known Allergies Allergy Verified 12/27/16 09:51 - Medications Medications: Current Medications Acetaminophen (Tylenol 650mg/20.3ml Solution Ud) 650 mg GT Q4H PRN PRN Reason: Fever >100.4 F Albuterol/Ipratropium (Duoneb 3 Mg/0.5 Mg (3 Ml) Ud) 3 ml IH Q2H PRN PRN Reason: Shortness of Breath Last Admin: 12/29/16 23:47 Dose: 3 ml Aspirin (Aspirin Chewable) 81 mg PO DAILY [facility] Last Admin: 01/04/17 09:35 Dose: 81 mg Diphenhydramine HCl (Benadryl) 25 mg PO HS PRN PRN Reason: Insomnia Last Admin: 01/04/17 01:54 Dose: 25 mg Heparin Sodium (Porcine) (Heparin) 5,000 units SC Q8 [facility] Last Admin: 01/04/17 14:46 Dose: 5,000 units Hydralazine HCl (Apresoline) 10 mg IVP Q6 PRN PRN Reason: FOR SBP>160 and Distolic>100 Hydrochlorothiazide (Microzide) 12.5 mg GT DAILY [facility] Last Admin: 01/04/17 09:34 Dose: 12.5 mg Meropenem 1g/NS 100mL IVPB (Meropenem 1g/Ns 100ml Ivpb) 1 gm in 100 mls @ 100 mls/hr IVPB Q12 [facility] PRN Reason: Protocol Stop: 01/07/17 22:01 Last Admin: 01/04/17 09:29 Dose: 100 mls/hr Sodium Chloride (Sodium Chloride 0.9%) 1,000 mls @ 50 mls/hr IV .Q20H [facility] Last Admin: 01/03/17 22:10 Dose: 50 mls/hr Metronidazole (Flagyl) 500 mg in 100 mls @ 100 mls/hr IVPB Q8 [facility] PRN Reason: Protocol Stop: 01/17/17 16:01 Last Admin: 01/04/17 14:52 Dose: 100 mls/hr Losartan Potassium (Cozaar) 100 mg GT DAILY [facility] Last Admin: 01/04/17 09:35 Dose: 100 mg Morphine Sulfate (Morphine) 2 mg IVP Q4H PRN PRN Reason: Pain, moderate (4-7) Last Admin: 01/02/17 14:15 Dose: 2 mg Ondansetron HCl (Zofran Inj) 4 mg IVP Q4H PRN PRN Reason: Nausea/Vomiting Last Admin: 01/04/17 14:49 Dose: 4 mg Pantoprazole Sodium (Protonix Inj) 40 mg IVP Q12 [facility] Last Admin: 01/04/17 09:34 Dose: 40 mg Simethicone (Mylicon Chew Tab) 80 mg PO P[facility] PRN PRN Reason: GI distress Last Admin: 01/03/17 16:05 Dose: 80 mg Tamsulosin HCl (Flomax) 0.4 mg PO DAILY [facility] Last Admin: 01/04/17 09:35 Dose: 0.4 mg Physical Exam - Constitutional Appears: Well, No Acute Distress - Head Exam Head Exam: ATRAUMATIC, NORMOCEPHALIC - Eye Exam Eye Exam: Normal appearance - ENT Exam ENT Exam: Mucous Membranes Moist - Respiratory Exam Respiratory Exam: NORMAL BREATHING PATTERN - Cardiovascular Exam Cardiovascular Exam: RRR - GI/Abdominal Exam GI & Abdominal Exam: Distended, Soft. absent: Guarding, Rebound, Tenderness - Rectal Exam Additional comments: 6x5cm zaira-rectal wound s/p I&D, with necrotic/exudative tissue in wound bed - Extremities Exam Extremities exam: Positive for: pedal pulses present. Negative for: tenderness - Neurological Exam Neurological exam: Alert, Oriented x3 - Skin Skin Exam: Dry, Intact, Warm Results - Vital Signs Recent Vital Signs: Last Vital Signs Temp 98.3 F 01/04/17 12:00 Pulse 61 01/04/17 12:00 Resp 18 01/04/17 12:00 BP 160/65 H 01/04/17 14:47 Pulse Ox 100 01/04/17 06:00 - Labs Result Diagrams: 01/04/17 06:30 01/04/17 06:30 Labs: Laboratory Results - last 24 hr 01/04/17 01/04/17 06:30 06:30 WBC 13.8 H RBC 3.84 Hgb 11.6 L Hct 35.0 L MCV 91.1 MCH 30.2 MCHC 33.1 RDW 13.9 Plt Count 358 MPV 9.8 Gran % 80.0 H Lymph % (Auto) 12.6 L Bee % (Auto) 5.5 Eos % (Auto) 1.7 Baso % (Auto) 0.2 Gran # 11.02 H Lymph # 1.7 Bee # 0.8 H Eos # 0.2 Baso # 0.03 Sodium 140 Potassium 3.7 Chloride 111 H Carbon Dioxide 24 Anion Gap 9 L BUN 31 H Creatinine 1.2 Est GFR ( Amer) > 60 Est GFR (Non-Af Amer) 59 Random Glucose 135 H Calcium 7.8 L Phosphorus 3.2 Magnesium 1.7 Total Bilirubin 0.7 AST 35 ALT 46 Alkaline Phosphatase 62 Total Protein 5.3 L Albumin 2.1 L Globulin 3.2 Albumin/Globulin Ratio 0.7 L Assessment & Plan - Assessment and Plan (Free Text) Assessment: 76M with zaria-rectal abscess s/p I&D; POD#8 Plan: - Continue local wound care with efforts to keep wound clean - continue IV ABX - C-diff toxin negative - will discuss possibly advancing diet to help give him some binding agents - will discuss plan with Dr. Loren Cueto, PGY-2 Surgery
--- NOTE | 2017-01-04 22:18 | CP.PCM.PN ---
Subjective - Date & Time of Evaluation Date of Evaluation: 01/04/17 Time of Evaluation: 09:40 - Subjective Subjective: Comfortable, less abdominal pain, no fevers overnight. Objective - Vital Signs/Intake and Output Vital Signs (last 24 hours): Temp Pulse Resp BP Pulse Ox 98.6 F 62 18 156/55 H 100 01/04/17 20:30 01/04/17 20:30 01/04/17 20:30 01/04/17 20:30 01/04/17 18:00 Intake and Output: 01/04/17 01/05/17 18:59 06:59 Intake Total 240 Balance 240 - Medications Medications: Current Medications Acetaminophen (Tylenol 650mg/20.3ml Solution Ud) 650 mg GT Q4H PRN PRN Reason: Fever >100.4 F Albuterol/Ipratropium (Duoneb 3 Mg/0.5 Mg (3 Ml) Ud) 3 ml IH Q2H PRN PRN Reason: Shortness of Breath Last Admin: 12/29/16 23:47 Dose: 3 ml Aspirin (Aspirin Chewable) 81 mg PO DAILY [facility] Last Admin: 01/04/17 09:35 Dose: 81 mg Diphenhydramine HCl (Benadryl) 25 mg PO HS PRN PRN Reason: Insomnia Last Admin: 01/04/17 01:54 Dose: 25 mg Heparin Sodium (Porcine) (Heparin) 5,000 units SC Q8 [facility] Last Admin: 01/04/17 14:46 Dose: 5,000 units Hydralazine HCl (Apresoline) 10 mg IVP Q6 PRN PRN Reason: FOR SBP>160 and Distolic>100 Hydrochlorothiazide (Microzide) 12.5 mg GT DAILY [facility] Last Admin: 01/04/17 09:34 Dose: 12.5 mg Meropenem 1g/NS 100mL IVPB (Meropenem 1g/Ns 100ml Ivpb) 1 gm in 100 mls @ 100 mls/hr IVPB Q12 [facility] PRN Reason: Protocol Stop: 01/07/17 22:01 Last Admin: 01/04/17 09:29 Dose: 100 mls/hr Sodium Chloride (Sodium Chloride 0.9%) 1,000 mls @ 50 mls/hr IV .Q20H [facility] Last Admin: 01/03/17 22:10 Dose: 50 mls/hr Ketorolac Tromethamine (Toradol) 30 mg IVP Q6 PRN PRN Reason: Pain, moderate (4-7) Last Admin: 01/04/17 19:08 Dose: 30 mg Losartan Potassium (Cozaar) 100 mg GT DAILY [facility] Last Admin: 01/04/17 09:35 Dose: 100 mg Morphine Sulfate (Morphine) 2 mg IVP Q4H PRN PRN Reason: Pain, moderate (4-7) Last Admin: 01/02/17 14:15 Dose: 2 mg Ondansetron HCl (Zofran Inj) 4 mg IVP Q4H PRN PRN Reason: Nausea/Vomiting Last Admin: 01/04/17 14:49 Dose: 4 mg Pantoprazole Sodium (Protonix Inj) 40 mg IVP Q12 [facility] Last Admin: 01/04/17 09:34 Dose: 40 mg Simethicone (Mylicon Chew Tab) 80 mg PO PCHS PRN PRN Reason: GI distress Last Admin: 01/03/17 16:05 Dose: 80 mg Tamsulosin HCl (Flomax) 0.4 mg PO DAILY [facility] Last Admin: 01/04/17 09:35 Dose: 0.4 mg - Labs Labs: 01/04/17 06:30 01/04/17 06:30 PT 13.3 Seconds (9.9-11.8) H 12/29/16 07:15 INR 1.23 (0.93-1.08) H 12/29/16 07:15 APTT 34.9 Seconds (23.7-30.8) H 12/27/16 19:00 - Constitutional Appears: Non-toxic, No Acute Distress - Head Exam Head Exam: NORMAL INSPECTION - Neck Exam Neck Exam: absent: Lymphadenopathy, Meningismus - Respiratory Exam Respiratory Exam: Decreased Breath Sounds - Cardiovascular Exam Cardiovascular Exam: +S1, +S2 - GI/Abdominal Exam GI & Abdominal Exam: Distended, Soft. absent: Firm, Guarding, Rigid, Tenderness Assessment and Plan - Assessment and Plan (Free Text) Plan: Assessment Sepsis due to perirectal abscess S/P I and D POD #8 - cx growing Strep milleri and E. 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
[2017-01-04] MEDS: Sodium Chloride 0.9% 1,000 ML IV SCH (22:45)
[2017-01-05] MEDS ORDERED: Morphine 2 mg/ml ISec IVP PRN (05:55)
[2017-01-05] MEDS ORDERED: Povidone Iodine Topical 10% Sol TOP PRN (06:31)
[2017-01-05 06:55] LABS: ADD MANUAL DIFF? NO
[2017-01-05 07:03] LABS: BASO # 0.04 K/mm3 (0.0-2.0); BASO % 0.4 % (0.0-3.0); EOS # 0.1 (0.0-0.7); EOS % 1.1 % (1.5-5.0); GRAN % 77.8 % (50.0-68.0); HEMATOCRIT 33.1 % (42.0-52.0); LYMPH # 1.6 (1.2-3.4); LYMPH % 15.2 % (22.0-35.0); MEAN CELL VOLUME 90.9 fL (80.0-105.0); MEAN CORPUSCULAR HEMOGLOBIN 30.2 pg (25.0-35.0); MEAN CORPUSCULAR HGB CONC 33.2 g/dl (31.0-37.0); MEAN PLATELET VOLUME 9.5 fl (7.0-11.0); MONO # 0.6 (0.1-0.6); MONO % 5.5 % (1.0-6.0); PLATELET COUNT 354 10^3/uL (120.0-450.0); RED CELL DISTRIBUTION WIDTH 13.9 % (11.5-14.5); WHITE BLOOD COUNT 10.3 10^3/ul (4.5-11.0)
[2017-01-05 07:21] LABS: ALB/GLOB RATIO 0.6 (1.1-1.8); ALKALINE PHOSPHATASE 61 U/L (38-133); ALT/SGPT 43 U/L (7-56); AST/SGOT 34 U/L (15-59); BILIRUBIN,TOTAL 0.4 mg/dL (0.2-1.3); BLOOD UREA NITROGEN 32 mg/dL (7-21); CALCIUM 7.9 mg/dL (8.4-10.5); CARBON DIOXIDE 24 mmol/L (21-33); CHLORIDE 112 mmol/L (98-107); GFR AFRICAN-AMERICAN > 60; GLUCOSE,RANDOM 121 mg/dL (70-110); MAGNESIUM 1.7 mg/dL (1.7-2.2); PHOSPHOROUS 3.9 mg/dL (2.5-4.5); POTASSIUM 3.8 mmol/L (3.6-5.0); SODIUM 141 mmol/L (132-148); TOTAL PROTEIN 5.1 g/dL (5.8-8.3)
--- NOTE | 2017-01-05 08:19 | PN ---
DATE: 01/05/2017 SUBJECTIVE: The patient appears comfortable this morning. He is not short of breath at rest. PHYSICAL EXAMINATION: VITAL SIGNS: Temperature is 98.1, pulse 65, respirations 18/20, blood pressure 123/63. Oxygen saturation on nasal cannula is 96%-97%. HEENT: Normocephalic, atraumatic. No JVD. CARDIOVASCULAR: Systolic ejection murmur at the lower left sternal border. No S3 gallop. LUNGS: Decreased breath sounds at the bases. No rhonchi or wheezing. EXTREMITIES: Mild edema. No cyanosis, no clubbing. Calves are nontender to palpation. GASTROINTESTINAL: Abdomen is soft. It is mildly distended, but nontender to palpation. Bowel sounds are positive. SKIN: No acute rash. NEUROLOGIC: Limited at the present time. IMPRESSION: 1. Perirectal abscess. Status post surgery. 2. Left lower lobe pneumonia -- resolving. 3. Coronary artery disease. 4. Cardiomyopathy. 5. Mild anemia. PLAN: The patient appears comfortable this morning. He is not short of breath at rest. His abdomen is still distended, but nontender to palpation. He does state to feeling better overall. On physical exam, there is no significant bronchospasm noted. In addition, there is no significant alveolar-arterial gradient. I have discussed again with the patient -- the importance of getting out of bed and using his incentive spirometer. I would continue with the antibiotic coverage as per infectious disease. Temperatures have resolved. The leukocytosis is resolving. I would continue with the GI and surgical evaluations. Inputs are noted. Clinical status of the patient is certainly improved -- compared to the initial presentation. However, again, the overall status/prognosis of this patient does remain guarded. I will discuss the above with the attending physician. Jaden Romero MD cc: [id number] TT: 01/05/2017 08:19:27 Confirmation # [id number] Dictation # [id number] en MTDD
--- NOTE | 2017-01-05 08:24 | CP.PCM.PN ---
Subjective - Date & Time of Evaluation Date of Evaluation: 01/05/17 Time of Evaluation: 07:00 - Subjective Subjective: General Surgery Dr. Pimentel Pt S&E @bedside. PatrickO. c/o worsening distension after eating. denies pain, N/V. still having diarrhea. Objective - Vital Signs/Intake and Output Vital Signs (last 24 hours): Temp Pulse Resp BP Pulse Ox 98.1 F 65 20 123/63 96 01/05/17 05:41 01/05/17 05:41 01/05/17 05:41 01/05/17 05:41 01/05/17 05:41 Intake and Output: 01/05/17 01/05/17 06:59 18:59 Intake Total 1670 Output Total 700 Balance 970 - Medications Medications: Current Medications Acetaminophen (Tylenol 650mg/20.3ml Solution Ud) 650 mg GT Q4H PRN PRN Reason: Fever >100.4 F Albuterol/Ipratropium (Duoneb 3 Mg/0.5 Mg (3 Ml) Ud) 3 ml IH Q2H PRN PRN Reason: Shortness of Breath Last Admin: 12/29/16 23:47 Dose: 3 ml Aspirin (Aspirin Chewable) 81 mg PO DAILY [facility] Last Admin: 01/04/17 09:35 Dose: 81 mg Diphenhydramine HCl (Benadryl) 25 mg PO HS PRN PRN Reason: Insomnia Last Admin: 01/05/17 01:21 Dose: 25 mg Heparin Sodium (Porcine) (Heparin) 5,000 units SC Q8 [facility] Last Admin: 01/05/17 05:26 Dose: 5,000 units Hydralazine HCl (Apresoline) 10 mg IVP Q6 PRN PRN Reason: FOR SBP>160 and Distolic>100 Hydrochlorothiazide (Microzide) 12.5 mg GT DAILY [facility] Last Admin: 01/04/17 09:34 Dose: 12.5 mg Meropenem 1g/NS 100mL IVPB (Meropenem 1g/Ns 100ml Ivpb) 1 gm in 100 mls @ 100 mls/hr IVPB Q12 [facility] PRN Reason: Protocol Stop: 01/07/17 22:01 Last Admin: 01/04/17 22:18 Dose: 100 mls/hr Sodium Chloride (Sodium Chloride 0.9%) 1,000 mls @ 50 mls/hr IV .Q20H [facility] Last Admin: 01/04/17 22:45 Dose: 50 mls/hr Ketorolac Tromethamine (Toradol) 30 mg IVP Q6 PRN PRN Reason: Pain, moderate (4-7) Last Admin: 01/05/17 01:08 Dose: 30 mg Losartan Potassium (Cozaar) 100 mg GT DAILY [facility] Last Admin: 01/04/17 09:35 Dose: 100 mg Morphine Sulfate (Morphine) 2 mg IVP Q4H PRN PRN Reason: Pain, severe (8-10) Ondansetron HCl (Zofran Inj) 4 mg IVP Q4H PRN PRN Reason: Nausea/Vomiting Last Admin: 01/04/17 14:49 Dose: 4 mg Pantoprazole Sodium (Protonix Inj) 40 mg IVP Q12 [facility] Last Admin: 01/04/17 22:18 Dose: 40 mg Povidone Iodine (Betadine 10% Topical Soln) 10 ml TOP QID PRN PRN Reason: Soiled packing Simethicone (Mylicon Chew Tab) 80 mg PO HS PRN PRN Reason: GI distress Last Admin: 01/03/17 16:05 Dose: 80 mg Tamsulosin HCl (Flomax) 0.4 mg PO DAILY [facility] Last Admin: 01/04/17 09:35 Dose: 0.4 mg - Labs Labs: 01/05/17 06:30 01/05/17 06:30 PT 13.3 Seconds (9.9-11.8) H 12/29/16 07:15 INR 1.23 (0.93-1.08) H 12/29/16 07:15 APTT 34.9 Seconds (23.7-30.8) H 12/27/16 19:00 - Constitutional Appears: Non-toxic, No Acute Distress - Head Exam Head Exam: NORMAL INSPECTION - Eye Exam Eye Exam: Normal appearance - ENT Exam ENT Exam: Mucous Membranes Moist - Respiratory Exam Respiratory Exam: NORMAL BREATHING PATTERN. absent: Accessory Muscle Use, Respiratory Distress - Cardiovascular Exam Cardiovascular Exam: absent: Bradycardia, Tachycardia - GI/Abdominal Exam GI & Abdominal Exam: Distended, Soft. absent: Guarding, Tenderness, Rebound - Neurological Exam Neurological Exam: Alert, Awake, Oriented x3 - Psychiatric Exam Psychiatric exam: Normal Affect, Normal Mood - Skin Skin Exam: Dry, Intact, Warm Assessment and Plan - Assessment and Plan (Free Text) Assessment: 76 y/o M w/ ischiorectal abscess POD#9 s/p I&D of abscess - bedside debridement this afternoon - pack w/ betadine-soaked gauze daily - change dressings PRN - pain management - cont IV Abx per ID Pt discussed w/ Dr. Loren Cat DO PGY1
--- NOTE | 2017-01-05 09:00 | CP.PCM.PN ---
<Ashlyn Moore - Last Filed: 01/05/17 17:16> Subjective - Date & Time of Evaluation Date of Evaluation: 01/05/17 Time of Evaluation: 07:20 - Subjective Subjective: Medicine progress note for Dr Orantes and Dr Sharpe service. Patient still experiencing diarrhea, especially after eating the full liquid diet. Patient 's abdomen is still distended. Patient c/o abdominal discomfort, and pain. Denies cp, sob, fever, chills, nausea, or vomiting. Denies headache. Patient was able to work with PT yesterday. Patient's and his daughter requested to have 2nd opinion from Dr Pimentel yesterday. Objective - Vital Signs/Intake and Output Vital Signs (last 24 hours): Temp Pulse Resp BP Pulse Ox 98.1 F 65 20 123/63 96 01/05/17 05:41 01/05/17 05:41 01/05/17 05:41 01/05/17 05:41 01/05/17 05:41 Intake and Output: 01/05/17 01/05/17 06:59 18:59 Intake Total 1670 Output Total 700 Balance 970 - Medications Medications: Current Medications Acetaminophen (Tylenol 650mg/20.3ml Solution Ud) 650 mg GT Q4H PRN PRN Reason: Fever >100.4 F Albuterol/Ipratropium (Duoneb 3 Mg/0.5 Mg (3 Ml) Ud) 3 ml IH Q2H PRN PRN Reason: Shortness of Breath Last Admin: 12/29/16 23:47 Dose: 3 ml Aspirin (Aspirin Chewable) 81 mg PO DAILY [facility] Last Admin: 01/04/17 09:35 Dose: 81 mg Diphenhydramine HCl (Benadryl) 25 mg PO HS PRN PRN Reason: Insomnia Last Admin: 01/05/17 01:21 Dose: 25 mg Heparin Sodium (Porcine) (Heparin) 5,000 units SC Q8 [facility] Last Admin: 01/05/17 05:26 Dose: 5,000 units Hydralazine HCl (Apresoline) 10 mg IVP Q6 PRN PRN Reason: FOR SBP>160 and Distolic>100 Hydrochlorothiazide (Microzide) 12.5 mg GT DAILY [facility] Last Admin: 01/04/17 09:34 Dose: 12.5 mg Meropenem 1g/NS 100mL IVPB (Meropenem 1g/Ns 100ml Ivpb) 1 gm in 100 mls @ 100 mls/hr IVPB Q12 [facility] PRN Reason: Protocol Stop: 01/07/17 22:01 Last Admin: 01/04/17 22:18 Dose: 100 mls/hr Sodium Chloride (Sodium Chloride 0.9%) 1,000 mls @ 50 mls/hr IV .Q20H [facility] Last Admin: 01/04/17 22:45 Dose: 50 mls/hr Ketorolac Tromethamine (Toradol) 30 mg IVP Q6 PRN PRN Reason: Pain, moderate (4-7) Last Admin: 01/05/17 01:08 Dose: 30 mg Losartan Potassium (Cozaar) 100 mg GT DAILY [facility] Last Admin: 01/04/17 09:35 Dose: 100 mg Morphine Sulfate (Morphine) 2 mg IVP Q4H PRN PRN Reason: Pain, severe (8-10) Ondansetron HCl (Zofran Inj) 4 mg IVP Q4H PRN PRN Reason: Nausea/Vomiting Last Admin: 01/04/17 14:49 Dose: 4 mg Pantoprazole Sodium (Protonix Inj) 40 mg IVP Q12 [facility] Last Admin: 01/04/17 22:18 Dose: 40 mg Povidone Iodine (Betadine 10% Topical Soln) 10 ml TOP QID PRN PRN Reason: Soiled packing Simethicone (Mylicon Chew Tab) 80 mg PO HS PRN PRN Reason: GI distress Last Admin: 01/03/17 16:05 Dose: 80 mg Tamsulosin HCl (Flomax) 0.4 mg PO DAILY [facility] Last Admin: 01/04/17 09:35 Dose: 0.4 mg - Labs Labs: 01/05/17 06:30 01/05/17 06:30 PT 13.3 Seconds (9.9-11.8) H 12/29/16 07:15 INR 1.23 (0.93-1.08) H 12/29/16 07:15 APTT 34.9 Seconds (23.7-30.8) H 12/27/16 19:00 - Constitutional Appears: No Acute Distress, Chronically Ill - Head Exam Head Exam: ATRAUMATIC, NORMAL INSPECTION, NORMOCEPHALIC - Eye Exam Eye Exam: EOMI, Normal appearance, PERRL. absent: Scleral icterus - ENT Exam ENT Exam: Mucous Membranes Moist - Neck Exam Neck Exam: Normal Inspection - Respiratory Exam Respiratory Exam: Decreased Breath Sounds (at the bases.), NORMAL BREATHING PATTERN. absent: Rales, Rhonchi, Wheezes, Respiratory Distress, Stridor - Cardiovascular Exam Cardiovascular Exam: REGULAR RHYTHM, +S1, +S2. absent: Murmur - GI/Abdominal Exam GI & Abdominal Exam: Distended, Soft, Tenderness (lower quadrants.), Hypoactive Bowel Sounds. absent: Hernia, Hyperactive Bowel Sounds, Pulsatile Mass Additional comments: tympanic abdomen on percussion. - Extremities Exam Extremities Exam: Pedal Edema (+3) - Back Exam Back Exam: NORMAL INSPECTION - Neurological Exam Neurological Exam: Alert, Awake, Oriented x3 - Psychiatric Exam Psychiatric exam: Depressed - Skin Skin Exam: Diaphoretic, Normal Color, Warm Assessment and Plan - Assessment and Plan (Free Text) Assessment: Patient is a 76 y/o with PMH of htn, h/o dilated cardiomyopathy ( recent echo with normal lvef), h/o 3rd degree av block s/p PPM, h/o prostate ca s/p robotic reconstruction surgery presented with rectal pain and found to have zaira-rectal abscess s/p surgery POD# 8. Patient developed pneumonia during the course of hospitalization, which has improved. Patient also developed mechanical SOB, and currently have abdominal distention, and uncontrolled diarrhea. Patient and pt' s daughter requested second opinion from Dr Pimentel. Plan: 1) Distended abdomen secondary to mechanical SBO. - Patient had ngt inserted on Sunday, removed 01/01 due to lack of output - abdominal distention worst compared to yesterday. - diarrhea after eating - c. diff negative - continue simethicone - ns@50cc - surgery following, observation for now, with possible operation? - repeat flat abdomen pending 2) Severely malnourished - with low albumin -supervisor edging referral pending 3) HAP - continue duoneb prn - on merrem - zyvox discontinued ad per ID. 4) Sepsis 2nd to Perirectal abscess s/p surgery - sepsis resolving, leukocytosis down to 10s. - on abx for pneumonia 5) Perirectal abscess s/p surgery - post op wound care as per surgery - grew ecoli and strep intermidius - completed abx. - Surgery planning bedside wound debridement. 6) Hypokalemia from gi loss- resolved, will monitor 7) DENISE - resolved - will continue to monitor. 8) Transaminitis- - improved -HCV antibody positive, qual negative 9) CAD w/ stents - on hctz and cozaar for htn, hydralazine prn - continue asa 10) Normocytic anemia- likely dilutional - h/h stable, will monitor 11) DVT and GI prophylaxis: protonix and heparin sc. 12) Dispo-TRCU when medically optimized. Patient seen, examined, discussed with Dr Sharpe. <Woody Sharpe - Last Filed: 01/25/17 19:24> Objective - Vital Signs/Intake and Output Vital Signs (last 24 hours): Temp Pulse Resp BP Pulse Ox 98.3 F 62 18 129/57 L 95 01/25/17 17:50 01/25/17 17:50 01/25/17 17:50 01/25/17 17:50 01/25/17 06:00 Intake and Output: 01/25/17 01/26/17 18:59 06:59 Intake Total 200 Output Total 400 Balance -200 - Labs Labs: 01/22/17 06:00 01/22/17 06:00 PT 12.6 Seconds (9.9-11.8) H 01/10/17 12:30 INR 1.17 (0.93-1.08) H 01/10/17 12:30 APTT 33.4 Seconds (23.7-30.8) H 01/10/17 12:30 Attending/Attestation - Attestation I have personally seen and examined this patient.: Yes I have fully participated in the care of the patient.: Yes I have reviewed all pertinent clinical information, including history, physical exam and plan: Yes Notes (Text): 01/25/17 19:24 Medical record note made by the resident after discussion with my direction and input after the patient was personally seen and examined by me. I have reviewed the chart and agree that the record accurately reflects by personal performance of the history, physical exam, data review, and medical decision-making, in the course for the patient. I have also personally directed the plan of care.
[2017-01-05] MEDS: Meropenem 1g/NS 100mL IVPB 1 GM/100 ML PIGGYBACK IVPB SCH (10:35)
--- NOTE | 2017-01-05 11:02 | RAD ---
HISTORY: abd distension, worsening COMPARISON: 01/02/2017 FINDINGS: BOWEL: Multiple dilated loops of small bowel are seen with a diameter of approximately 4 cm. Previously bowel loops were is largest 6 cm. There is also some gas now seen in the colon. BONES: Normal. OTHER FINDINGS: None. IMPRESSION: Slight improvement in small bowel obstruction or ileus
--- NOTE | 2017-01-05 11:41 | PN ---
DATE: 01/05/2017 SUBJECTIVE: Patient is sitting in a chair. He feels better. He still has some abdominal discomfort after eating. He has abdominal distention. He denies any nausea, vomiting. PHYSICAL EXAM: VITAL SIGNS: Reveal a temperature of 98.1, blood pressure 123/63, heart rate 65. ABDOMEN: Distended, soft, nontender. Diminished bowel sounds. LABORATORY DATA: Reveal white blood cell count 10.3, hemoglobin 11. Chemistries reveal blood sugar 121. AST, ALT, alkaline phosphatase all normal. Potassium at 3.8. Serum magnesium is 1.7. Obstruc tive series from this morning shows less dilatation of small bowel loops but more small bowel loops t hat are dilated. Overall, this is improved from a prior abdominal x-ray. IMPRESSION: A 76-year-old male status post incision and drainage of an ischiorectal abscess with pos top partial small-bowel obstruction which appears to be improving. RECOMMENDATIONS: 1. Continue full liquid diet. 2. Continue close surgical followup. Bowen Mota MD cc: [id number] TT: 01/05/2017 11:40:46 Confirmation # [id number] Dictation # [id number] jn
[2017-01-05] MEDS ORDERED: HYDROmorphone 0.5 mg/0.5 ml ISec IVP STA (11:54)
--- NOTE | 2017-01-05 12:28 | PCM.PROC ---
Procedure: Blank - Time Time Performed: 12:00 - Time Out Time Out: Side verified, Site verified, Patient ID confirmed, Sterile procedures obs. - Procedure Procedure:: wound debridement, incision and drainage with packing - Consent obtained: Consent obtained: Written - Performed by: Performed by:: Mid-level provider (Dr. Cat PGY1) - Indications Indications(s):: Kaia-rectal abscess, wound necrosis - Contraindications: Contraindications:: None - Anesthetic Technique Anesthetic Technique: Intravenous pain meds (0.5mg Dilaudid) - Patient Position Patient Position:: Right lateral decubitus - Location Location: Left, Buttock - Result Result: Successful - Post-Procedure Post-procedure:: Hemostasis achieved, Dressing applied, Vital signs stable - Complications Complications:: Pain - Patient Tolerated Procedure Patient Tolerated Procedure:: Well
--- NOTE | 2017-01-05 14:06 | PN ---
DATE: 01/05/2017 The patient is approximately 1 week following wide and deep drainage of a horseshoe ischiorectal-supr alevator abscess. The patient has a significant cardiac history with very low ejection fraction, but has been slowly recovering following drainage of this complicated perirectal infection. He has demo nstrated a persisting ileus and multiple liquid bowel movements daily, frequently green in color. Th beto are most likely secondary to the high retroperitoneal infection that is still draining out at thi s point. The patient has declined sitting on his buttock due to discomfort and is somewhat noncompli ant with physical therapy as he claims he is too tired or it causes too much discomfort. His daughter has returned from being away for 5 weeks, identifies herself as a retired nurse anesthet ist and a full explanation of the hospital course and the plan was explained and all questions were a nswered. She did have a concern that he was seen earlier before he came in and we identified the je e as being only 2 days before and his initial treatment was done as soon as possible after admission that anesthesia would allow sedation following taking a liquid intake earlier in the day. Of some significance at this point is the fact that there is persisting ileus and at this point in ti me, it is anticipated that time will be on our side as the white count that initially was 27,000 is n ow down to 10,000 and the patient's pain is much less. We would normally be recommending a tertiary referral center at this point, however, he seems to be getting better. The patient did develop a positive hepatitis C antibody, which was ordered by the manager medical writing carmen kothari the patient's past medical history did not completely explain the presence of this and the quantita tive RNA by PCR testing was ordered and just came back as 0. With this in mind, the patient and his daughter were advised that it is unlikely that he has hepatitis C and probably should get a repeat te st within 6 months. The patient did ask how he could have caught hepatitis C and in the absence of b lood transfusions or using needles or drugs, a question regarding possibility of sexual contact was r aised, but with the quantitative result of 0, neither of these are a significant factor or issue to b e considered. The patient apparently was disturbed over the questioning as to the possibilities of hepatitis C etio logy and after discussion with his daughter, requested a second surgical opinion and this opinion tigist l be forthcoming shortly. In the meantime, this surgeon will remain available to facilitate the care in any way until the second surgical opinion is rendered and the family decides what future plans th ey will undertake. The surgical residents continue to see the patient today and I will remain availa ble as needed. This dictation will be electronically signed without being read. Jh Howe MD cc: [phone] TT: 01/05/2017 14:05:36 Confirmation # [id number] Dictation # [id number]
[2017-01-05] MEDS ORDERED: Potassium Chloride 20 mEq ER Tab PO ONE (16:11)
--- NOTE | 2017-01-05 17:37 | CP.PCM.PN ---
Subjective - Date & Time of Evaluation Date of Evaluation: 01/05/17 Time of Evaluation: 09:15 - Subjective Subjective: Comfortable, not in distress, afebrile. Abdomen feels better. Objective - Vital Signs/Intake and Output Vital Signs (last 24 hours): Temp Pulse Resp BP Pulse Ox 98 F 64 20 142/55 L 99 01/05/17 12:00 01/05/17 14:00 01/05/17 12:00 01/05/17 12:00 01/05/17 09:00 Intake and Output: 01/05/17 01/05/17 06:59 18:59 Intake Total 1670 Output Total 700 Balance 970 - Medications Medications: Current Medications Acetaminophen (Tylenol 650mg/20.3ml Solution Ud) 650 mg GT Q4H PRN PRN Reason: Fever >100.4 F Albuterol/Ipratropium (Duoneb 3 Mg/0.5 Mg (3 Ml) Ud) 3 ml IH Q2H PRN PRN Reason: Shortness of Breath Last Admin: 12/29/16 23:47 Dose: 3 ml Alprazolam (Xanax) 0.5 mg PO TID PRN; Protocol PRN Reason: Anxiety Aspirin (Aspirin Chewable) 81 mg PO DAILY [facility] Last Admin: 01/05/17 10:37 Dose: 81 mg Diphenhydramine HCl (Benadryl) 25 mg PO HS PRN PRN Reason: Insomnia Last Admin: 01/05/17 01:21 Dose: 25 mg Heparin Sodium (Porcine) (Heparin) 5,000 units SC Q8 [facility] Last Admin: 01/05/17 14:31 Dose: 5,000 units Hydralazine HCl (Apresoline) 10 mg IVP Q6 PRN PRN Reason: FOR SBP>160 and Distolic>100 Hydrochlorothiazide (Microzide) 12.5 mg GT DAILY [facility] Last Admin: 01/05/17 10:37 Dose: 12.5 mg Sodium Chloride (Sodium Chloride 0.9%) 1,000 mls @ 50 mls/hr IV .Q20H [facility] Last Admin: 01/04/17 22:45 Dose: 50 mls/hr Ketorolac Tromethamine (Toradol) 30 mg IVP Q6 PRN PRN Reason: Pain, moderate (4-7) Last Admin: 01/05/17 01:08 Dose: 30 mg Losartan Potassium (Cozaar) 100 mg GT DAILY [facility] Last Admin: 01/05/17 10:37 Dose: 100 mg Morphine Sulfate (Morphine) 2 mg IVP Q4H PRN PRN Reason: Pain, severe (8-10) Ondansetron HCl (Zofran Inj) 4 mg IVP Q4H PRN PRN Reason: Nausea/Vomiting Last Admin: 01/04/17 14:49 Dose: 4 mg Pantoprazole Sodium (Protonix Inj) 40 mg IVP Q12 [facility] Last Admin: 01/05/17 10:35 Dose: 40 mg Povidone Iodine (Betadine 10% Topical Soln) 10 ml TOP QID PRN PRN Reason: Soiled packing Simethicone (Mylicon Chew Tab) 80 mg PO PCHS PRN PRN Reason: GI distress Last Admin: 01/03/17 16:05 Dose: 80 mg Tamsulosin HCl (Flomax) 0.4 mg PO DAILY [facility] Last Admin: 01/05/17 10:37 Dose: 0.4 mg - Labs Labs: 01/05/17 06:30 01/05/17 06:30 PT 13.3 Seconds (9.9-11.8) H 12/29/16 07:15 INR 1.23 (0.93-1.08) H 12/29/16 07:15 APTT 34.9 Seconds (23.7-30.8) H 12/27/16 19:00 - Constitutional Appears: Non-toxic, No Acute Distress - Head Exam Head Exam: NORMAL INSPECTION - ENT Exam ENT Exam: Mucous Membranes Moist - Neck Exam Neck Exam: absent: Lymphadenopathy, Meningismus - Respiratory Exam Respiratory Exam: Decreased Breath Sounds - Cardiovascular Exam Cardiovascular Exam: +S1, +S2 - GI/Abdominal Exam GI & Abdominal Exam: Soft. absent: Tenderness Assessment and Plan - Assessment and Plan (Free Text) Plan: Assessment Sepsis due to perirectal abscess S/P I and D POD #9 - cx growing Strep milleri and E. 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
--- NOTE | 2017-01-05 18:53 | PN ---
DATE: 01/05/2017 REASON FOR CONSULTATION AND FOLLOWUP: Status post rectal abscess drained, history of coronary artery disease. The patient was intestinal ileus. BRIEF CLINICAL HISTORY: A 76-year-old male with past medical history significant for coronary artery disease status post PTCA in the past, history of repeat catheterization in 2013, status post stent, negative stress 2014, history of pacemaker, admitted with rectal abscess, as well as developed ileus . Denies any chest pain, but complaining of inability to take food, becomes very sick. PHYSICAL EXAMINATION: VITAL SIGNS: Temperature afebrile, heart rate 64, blood pressure 144/66. HEENT: PERRLA. Extraocular muscles intact. NECK: Supple. No carotid bruits. No thyromegaly. CHEST: Clear to auscultation. HEART: S1, S2 regular. ABDOMEN: Soft. EXTREMITIES: Clubbing and cyanosis negative. LABORATORY DATA: Blood workup as follows: WBC 10, hemoglobin 11, hematocrit 33.1, platelet count 35 4. Chemistry shows sodium 141, potassium 3.____, chloride 112, carbon dioxide 24, anion gap of 9, BU N 32, creatinine 1.2. Total protein 5.____, albumin 2, albumin/globulin ratio 0.6. IMPRESSION: Severe protein-calorie malnutrition, hypokalemia, ileus, rectal abscess draining, histor y of coronary artery disease, pacemaker. RECOMMENDATION: Supplement potassium. Discussed with the residential child care counselor. The patient needs surg ical intervention. I discussed with the attending. I will continue gentle diuretics p.r.n. Supplem ent potassium. We will follow with you. Thank you, Dr. Bowen Orantes for providing the opportunity in taking care of the patient. Will suppl ement potassium and keep the potassium around 4 to prevent further ileus. We will repeat the lab in the morning. Gale Mora MD cc: [phone] TT: 01/05/2017 18:52:25 Confirmation # [id number] Dictation # [id number] jn
[2017-01-05] MEDS: Simethicone 80 mg Chewtab PO PRN (20:44)
[2017-01-05] MEDS: ceFAZolin 1 gm in NS 1 GM/100 ML BAG IVPB SCH (21:53)
[2017-01-05] MEDS: Sodium Chloride 0.9% 1,000 ML IV SCH (21:58)
[2017-01-06] MEDS: ceFAZolin 1 gm in NS 1 GM/100 ML BAG IVPB SCH ×3 (05:10→22:00)
[2017-01-06] MEDS: Simethicone 80 mg Chewtab PO PRN ×2 (06:21→21:58)
--- NOTE | 2017-01-06 06:36 | CP.PCM.PN ---
<Ashlyn Moore - Last Filed: 01/06/17 21:55> Subjective - Date & Time of Evaluation Date of Evaluation: 01/06/17 Time of Evaluation: 08:45 - Subjective Subjective: Medicine progress note for Dr Orantes and Dr Sharpe service. No overnight acute events. Patient reports he is feeling much better. Bowel movement only after he eats. Denies cp or sob. Denies fever, chills, n/v. Objective - Vital Signs/Intake and Output Vital Signs (last 24 hours): Temp Pulse Resp BP Pulse Ox 98.7 F 61 20 138/54 L 96 01/06/17 05:19 01/06/17 05:19 01/06/17 05:19 01/06/17 05:19 01/06/17 05:19 Intake and Output: 01/05/17 01/06/17 18:59 06:59 Intake Total 810 Output Total 150 Balance 660 - Medications Medications: Current Medications Acetaminophen (Tylenol 650mg/20.3ml Solution Ud) 650 mg GT Q4H PRN PRN Reason: Fever >100.4 F Albuterol/Ipratropium (Duoneb 3 Mg/0.5 Mg (3 Ml) Ud) 3 ml IH Q2H PRN PRN Reason: Shortness of Breath Last Admin: 12/29/16 23:47 Dose: 3 ml Alprazolam (Xanax) 0.5 mg PO TID PRN; Protocol PRN Reason: Anxiety Aspirin (Aspirin Chewable) 81 mg PO DAILY [facility] Last Admin: 01/05/17 10:37 Dose: 81 mg Diphenhydramine HCl (Benadryl) 25 mg PO HS PRN PRN Reason: Insomnia Last Admin: 01/06/17 00:19 Dose: 25 mg Heparin Sodium (Porcine) (Heparin) 5,000 units SC Q8 [facility] Last Admin: 01/06/17 05:09 Dose: 5,000 units Hydralazine HCl (Apresoline) 10 mg IVP Q6 PRN PRN Reason: FOR SBP>160 and Distolic>100 Hydrochlorothiazide (Microzide) 12.5 mg GT DAILY [facility] Last Admin: 01/05/17 10:37 Dose: 12.5 mg Sodium Chloride (Sodium Chloride 0.9%) 1,000 mls @ 50 mls/hr IV .Q20H [facility] Last Admin: 01/05/17 21:58 Dose: 50 mls/hr Cefazolin Sodium (Ancef 1gm In Ns) 1 gm in 100 mls @ 100 mls/hr IVPB Q8 [facility] PRN Reason: Protocol Last Admin: 01/06/17 05:10 Dose: 100 mls/hr Ketorolac Tromethamine (Toradol) 30 mg IVP Q6 PRN PRN Reason: Pain, moderate (4-7) Last Admin: 01/05/17 01:08 Dose: 30 mg Losartan Potassium (Cozaar) 100 mg GT DAILY [facility] Last Admin: 01/05/17 10:37 Dose: 100 mg Morphine Sulfate (Morphine) 2 mg IVP Q4H PRN PRN Reason: Pain, severe (8-10) Ondansetron HCl (Zofran Inj) 4 mg IVP Q4H PRN PRN Reason: Nausea/Vomiting Last Admin: 01/04/17 14:49 Dose: 4 mg Pantoprazole Sodium (Protonix Inj) 40 mg IVP Q12 [facility] Last Admin: 01/05/17 21:57 Dose: 40 mg Povidone Iodine (Betadine 10% Topical Soln) 10 ml TOP QID PRN PRN Reason: Soiled packing Simethicone (Mylicon Chew Tab) 80 mg PO PCHS PRN PRN Reason: GI distress Last Admin: 01/06/17 06:21 Dose: 80 mg Tamsulosin HCl (Flomax) 0.4 mg PO DAILY [facility] Last Admin: 01/05/17 10:37 Dose: 0.4 mg - Labs Labs: 01/05/17 06:30 01/05/17 06:30 PT 13.3 Seconds (9.9-11.8) H 12/29/16 07:15 INR 1.23 (0.93-1.08) H 12/29/16 07:15 APTT 34.9 Seconds (23.7-30.8) H 12/27/16 19:00 - Constitutional Appears: No Acute Distress - Head Exam Head Exam: ATRAUMATIC, NORMAL INSPECTION, NORMOCEPHALIC - Eye Exam Eye Exam: EOMI, Normal appearance, PERRL. absent: Scleral icterus - ENT Exam ENT Exam: Mucous Membranes Moist - Neck Exam Neck Exam: Normal Inspection - Respiratory Exam Respiratory Exam: Clear to Ausculation Bilateral, NORMAL BREATHING PATTERN. absent: Rales, Rhonchi, Wheezes, Respiratory Distress, Stridor - Cardiovascular Exam Cardiovascular Exam: REGULAR RHYTHM, RRR, +S1, +S2. absent: Gallop, Irregular Rhythm, JVD, Rubs, Murmur - GI/Abdominal Exam GI & Abdominal Exam: Distended (mildly improved), Soft, Hypoactive Bowel Sounds. absent: Firm, Guarding, Tenderness, Pulsatile Mass - Extremities Exam Extremities Exam: Pedal Edema. absent: Calf Tenderness - Back Exam Back Exam: NORMAL INSPECTION - Neurological Exam Neurological Exam: Alert, Awake, Oriented x3 - Psychiatric Exam Psychiatric exam: Normal Affect, Normal Mood - Skin Skin Exam: Dry, Intact, Normal Color, Warm Additional comments: Clean dressing at the incision site. Assessment and Plan - Assessment and Plan (Free Text) Assessment: Patient is a 76 y/o with PMH of htn, h/o dilated cardiomyopathy ( recent echo with normal lvef), h/o 3rd degree av block s/p PPM, h/o prostate ca s/p robotic reconstruction surgery, presented with rectal pain and found to have zaira- rectal abscess s/p surgery POD# 9. Patient developed pneumonia during the course of hospitalization, which has resolved. Patient also developed mechanical SOB, and currently have abdominal distention, and uncontrolled diarrhea. Pending surgical decision. Plan: 1) Distended abdomen secondary to mechanical SBO. - Patient had ngt inserted on Sunday, removed 01/01 due to lack of output - Abdomen somehow softer compared to yesterday. - still c/o diarrhea after eating - c. diff negative - continue simethicone - repeat flat abdomen with slight improvement in the sbo/ileus 2) HAP - continue duoneb prn - abx changed to cipro per ID. 3) Sepsis 2nd to Perirectal abscess s/p surgery - - sepsis resolved - on abx for pneumonia 4) Perirectal abscess s/p surgery - post op wound care as per surgery - grew ecoli and strep intermidius - completed abx. - S/p wound debridement. 5) Hypokalemia from gi loss- resolved, will continue monitor 6) DENISE - resolved - will continue to monitor. 7) Transaminitis-resolved 8) CAD w/ stents - continue hctz and cozaar for htn, hydralazine prn - continue asa 9) Normocytic anemia- - h/h stable, will continue to monitor 10) DVT and GI prophylaxis: protonix and heparin sc. 11) Dispo-TRCU when medically optimized. Patient seen, examined, discussed with Dr Sharpe. <Woody Sharpe - Last Filed: 01/26/17 18:41> Objective - Vital Signs/Intake and Output Vital Signs (last 24 hours): Temp Pulse Resp BP Pulse Ox 98.3 F 62 18 129/57 L 95 01/25/17 17:50 01/25/17 17:50 01/25/17 17:50 01/25/17 17:50 01/25/17 06:00 - Labs Labs: 01/22/17 06:00 01/22/17 06:00 PT 12.6 Seconds (9.9-11.8) H 01/10/17 12:30 INR 1.17 (0.93-1.08) H 01/10/17 12:30 APTT 33.4 Seconds (23.7-30.8) H 01/10/17 12:30 Attending/Attestation - Attestation I have personally seen and examined this patient.: Yes I have fully participated in the care of the patient.: Yes I have reviewed all pertinent clinical information, including history, physical exam and plan: Yes Notes (Text): 01/26/17 18:41 Medical record note made by the resident after discussion with my direction and input after the patient was personally seen and examined by me. I have reviewed the chart and agree that the record accurately reflects by personal performance of the history, physical exam, data review, and medical decision-making, in the course for the patient. I have also personally directed the plan of care.
[2017-01-06 07:38] LABS: ADD MANUAL DIFF? NO
[2017-01-06] MEDS: Sodium Chloride 0.9% 1,000 ML IV SCH (07:45)
[2017-01-06 07:47] LABS: BASO # 0.03 K/mm3 (0.0-2.0); BASO % 0.3 % (0.0-3.0); EOS # 0.2 (0.0-0.7); EOS % 1.4 % (1.5-5.0); GRAN % 76.4 % (50.0-68.0); HEMATOCRIT 34.3 % (42.0-52.0); LYMPH # 1.9 (1.2-3.4); LYMPH % 16.3 % (22.0-35.0); MEAN CELL VOLUME 91.5 fL (80.0-105.0); MEAN CORPUSCULAR HEMOGLOBIN 30.1 pg (25.0-35.0); MEAN CORPUSCULAR HGB CONC 32.9 g/dl (31.0-37.0); MEAN PLATELET VOLUME 9.7 fl (7.0-11.0); MONO # 0.6 (0.1-0.6); MONO % 5.6 % (1.0-6.0); PLATELET COUNT 381 10^3/uL (120.0-450.0); RED CELL DISTRIBUTION WIDTH 13.9 % (11.5-14.5); WHITE BLOOD COUNT 11.5 10^3/ul (4.5-11.0)
[2017-01-06 08:02] LABS: ALB/GLOB RATIO 0.7 (1.1-1.8); ALKALINE PHOSPHATASE 63 U/L (38-133); ALT/SGPT 48 U/L (7-56); AST/SGOT 54 U/L (15-59); BILIRUBIN,TOTAL 0.4 mg/dL (0.2-1.3); BLOOD UREA NITROGEN 30 mg/dL (7-21); CALCIUM 7.9 mg/dL (8.4-10.5); CARBON DIOXIDE 24 mmol/L (21-33); CHLORIDE 111 mmol/L (95-110); GFR AFRICAN-AMERICAN > 60; GLUCOSE,RANDOM 105 mg/dL (70-110); MAGNESIUM 1.8 mg/dL (1.7-2.2); PHOSPHOROUS 3.1 mg/dL (2.5-4.5); POTASSIUM 3.9 mmol/L (3.6-5.0); SODIUM 140 mmol/L (132-148); TOTAL PROTEIN 5.1 g/dL (5.8-8.3)
--- NOTE | 2017-01-06 08:45 | CP.PCM.PN ---
Subjective - Date & Time of Evaluation Date of Evaluation: 01/06/17 Time of Evaluation: 08:42 - Subjective Subjective: Surgery for Dr. Pimentel Pt s&erin SIMENTAL. Dressing changed by surgical team. Tolerating diet. Denies F/C/N/ V/CP/SOB. +BM. +void. Pain controlled. Debridement done on bedside yesterday. Objective - Vital Signs/Intake and Output Vital Signs (last 24 hours): Temp Pulse Resp BP Pulse Ox 98.7 F 61 20 138/54 L 96 01/06/17 05:19 01/06/17 05:19 01/06/17 05:19 01/06/17 05:19 01/06/17 05:19 Intake and Output: 01/06/17 01/06/17 06:59 18:59 Intake Total 810 Output Total 150 Balance 660 - Medications Medications: Current Medications Acetaminophen (Tylenol 650mg/20.3ml Solution Ud) 650 mg GT Q4H PRN PRN Reason: Fever >100.4 F Albuterol/Ipratropium (Duoneb 3 Mg/0.5 Mg (3 Ml) Ud) 3 ml IH Q2H PRN PRN Reason: Shortness of Breath Last Admin: 12/29/16 23:47 Dose: 3 ml Alprazolam (Xanax) 0.5 mg PO TID PRN; Protocol PRN Reason: Anxiety Aspirin (Aspirin Chewable) 81 mg PO DAILY [facility] Last Admin: 01/05/17 10:37 Dose: 81 mg Diphenhydramine HCl (Benadryl) 25 mg PO HS PRN PRN Reason: Insomnia Last Admin: 01/06/17 00:19 Dose: 25 mg Heparin Sodium (Porcine) (Heparin) 5,000 units SC Q8 [facility] Last Admin: 01/06/17 05:09 Dose: 5,000 units Hydralazine HCl (Apresoline) 10 mg IVP Q6 PRN PRN Reason: FOR SBP>160 and Distolic>100 Hydrochlorothiazide (Microzide) 12.5 mg GT DAILY [facility] Last Admin: 01/05/17 10:37 Dose: 12.5 mg Sodium Chloride (Sodium Chloride 0.9%) 1,000 mls @ 50 mls/hr IV .Q20H [facility] Last Admin: 01/06/17 07:45 Dose: 50 mls/hr Cefazolin Sodium (Ancef 1gm In Ns) 1 gm in 100 mls @ 100 mls/hr IVPB Q8 [facility] PRN Reason: Protocol Last Admin: 01/06/17 05:10 Dose: 100 mls/hr Ketorolac Tromethamine (Toradol) 30 mg IVP Q6 PRN PRN Reason: Pain, moderate (4-7) Last Admin: 01/05/17 01:08 Dose: 30 mg Losartan Potassium (Cozaar) 100 mg GT DAILY [facility] Last Admin: 01/05/17 10:37 Dose: 100 mg Morphine Sulfate (Morphine) 2 mg IVP Q4H PRN PRN Reason: Pain, severe (8-10) Ondansetron HCl (Zofran Inj) 4 mg IVP Q4H PRN PRN Reason: Nausea/Vomiting Last Admin: 01/04/17 14:49 Dose: 4 mg Pantoprazole Sodium (Protonix Inj) 40 mg IVP Q12 [facility] Last Admin: 01/05/17 21:57 Dose: 40 mg Povidone Iodine (Betadine 10% Topical Soln) 10 ml TOP QID PRN PRN Reason: Soiled packing Simethicone (Mylicon Chew Tab) 80 mg PO PCHS PRN PRN Reason: GI distress Last Admin: 01/06/17 06:21 Dose: 80 mg Tamsulosin HCl (Flomax) 0.4 mg PO DAILY [facility] Last Admin: 01/05/17 10:37 Dose: 0.4 mg - Labs Labs: 01/06/17 07:35 01/06/17 07:35 PT 13.3 Seconds (9.9-11.8) H 12/29/16 07:15 INR 1.23 (0.93-1.08) H 12/29/16 07:15 APTT 34.9 Seconds (23.7-30.8) H 12/27/16 19:00 - Constitutional Appears: No Acute Distress - Head Exam Head Exam: ATRAUMATIC, NORMAL INSPECTION, NORMOCEPHALIC - Eye Exam Eye Exam: EOMI, Normal appearance, PERRL Pupil Exam: NORMAL ACCOMODATION, PERRL - ENT Exam ENT Exam: Mucous Membranes Moist, Normal Exam - Neck Exam Neck Exam: Full ROM - Respiratory Exam Respiratory Exam: Clear to Ausculation Bilateral, NORMAL BREATHING PATTERN - Cardiovascular Exam Cardiovascular Exam: REGULAR RHYTHM, +S1, +S2. absent: Murmur - GI/Abdominal Exam GI & Abdominal Exam: Distended, Soft, Tenderness. absent: Firm, Guarding, Rigid , Mass, Rebound - Rectal Exam Rectal Exam: absent: Black Stool, Bloody Stool, Hemorrhoids, Fecal Impaction, NORMAL INSPECTION Additional comments: Incision no bleeding. Dressing changed. [id number] - Exam Exam: NORMAL INSPECTION - Extremities Exam Extremities Exam: Full ROM, Normal Capillary Refill, Normal Inspection - Back Exam Back Exam: NORMAL INSPECTION - Neurological Exam Neurological Exam: Alert, Awake, CN II-XII Intact, Oriented x3 - Psychiatric Exam Psychiatric exam: Normal Affect, Normal Mood - Skin Skin Exam: Dry, Erythema. absent: Cyanosis, Intact Assessment and Plan - Assessment and Plan (Free Text) Assessment: 76 y/o M w/ ischiorectal abscess POD#10 s/p I&D of abscess: WBC trending down. Afebrile - bedside debridement yesterday - pack w/ betadine-soaked gauze daily - change dressings PRN - pain management - cont IV Abx per ID Pt discussed w/ Dr. Pimentel
--- NOTE | 2017-01-06 09:28 | PN ---
DATE: 01/06/2017 SUBJECTIVE: The patient was seen and examined at bedside. He is wearing nasal cannula. He is not in acute distress. His oxygen saturation on nasal cannula is 92, slightly reduced. His intake and output is positive 700 mL. LABORATORY DATA: I reviewed today's blood work: WBC is 11.5, hemoglobin 11.3. His potassium 3.9. PHYSICAL EXAMINATION: HEAD, EARS, NOSE AND THROAT: Within normal limits. NECK: Supple with no jugular vein distention. CHEST: Symmetrical. CARDIOVASCULAR: S1, S2. II/ systolic ejection murmur. GASTROINTESTINAL: Soft, nontender with no organomegaly. SKIN: Clear with no cyanosis and no skin rashes. NEUROLOGIC: Limited at present time. ASSESSMENT: 1. Perirectal abscess, status post surgery. 2. Left lower lobe pneumonia, improving by chest x-ray. 3. Coronary artery disease. 4. Cardiomyopathy. 5. Mild anemia. PLAN: The patient appears more comfortable this morning. He is not short of breath at rest. On physical examination, there is no significant bronchospasm, few bilateral scattered rhonchi. His WBC is now in the 11,000 range. Continue administration of antibiotic as per GI, surgery. His status remains guarded. We will recheck on a p.r.n. basis. Freddie Weiner MD cc: [id number] TT: 01/06/2017 09:27:43 Confirmation # [id number] Dictation # [id number] christel DRAKE
--- NOTE | 2017-01-06 09:57 | PN ---
DATE: 01/06/2017 The patient is in bed in no acute distress, nontoxic. PHYSICAL EXAMINATION: VITAL SIGNS: Temperature is 98, blood pressure is 130/50, respiratory rate of 20, heart rate of 61. HEENT: Unremarkable. NECK: Supple. LUNGS: Have decreased breath sounds. HEART: Normal S1, S2. ABDOMEN: Soft, nontender. LABORATORY DATA: Reveals a white count of 11,500, hemoglobin 11 and platelets of 381. Chemistries r eveal the BUN of 30, creatinine of 1.2, procalcitonin 0.86, hepatitis C is reactive. Microbiology re veals the patient's E. coli in fluid. The blood cultures are no growth. Review of the orders reveals the patient to be on cefazolin. Dr. Juarez's progress note from today is rosa beaver. ASSESSMENT AND PLAN: This is a 76-year-old male with sepsis due to perirectal abscess, status post i ncision and drainage, post-procedure day #10, growing streptococcus milleri and Escherichia coli, low er lobe healthcare-associated pneumonia resolved, abdominal distention, dyslipidemia, gastroesophagea l reflux disease, hypertension, history of back surgery, history of carotid endarterectomy, and histo ry of third degree AV block with a pacemaker and prostate cancer with status post robotic reconstruct ions 6 years ago and the patient with coronary artery disease and has a history of percutaneous coron miley intervention, currently on cefazolin. Guillaume Spence MD cc: [phone] TT: 01/06/2017 09:56:46 Confirmation # [id number] Dictation # [id number] christel
[2017-01-06] MEDS ORDERED: Potassium Chloride 20 mEq ER Tab PO ONE (13:08)
[2017-01-07] MEDS: Sodium Chloride 0.9% 1,000 ML IV SCH ×2 (00:01→21:45)
[2017-01-07] MEDS: ceFAZolin 1 gm in NS 1 GM/100 ML BAG IVPB SCH ×3 (05:39→21:45)
[2017-01-07 07:51] LABS: ADD MANUAL DIFF? NO
[2017-01-07] MEDS ORDERED: HYDROmorphone 1 mg/ml ISec IVP STA (07:58)
[2017-01-07 08:01] LABS: BASO # 0.02 K/mm3 (0.0-2.0); BASO % 0.2 % (0.0-3.0); EOS # 0.2 (0.0-0.7); EOS % 1.6 % (1.5-5.0); GRAN # 6.81 (1.4-6.5); HEMATOCRIT 32.9 % (42.0-52.0); LYMPH # 1.8 (1.2-3.4); MEAN CELL VOLUME 92.2 fL (80.0-105.0); MEAN CORPUSCULAR HEMOGLOBIN 30.3 pg (25.0-35.0); MEAN CORPUSCULAR HGB CONC 32.8 g/dl (31.0-37.0); MEAN PLATELET VOLUME 9.7 fl (7.0-11.0); MONO # 0.7 (0.1-0.6); MONO % 7.2 % (1.0-6.0); PLATELET COUNT 421 10^3/uL (120.0-450.0); RED CELL DISTRIBUTION WIDTH 13.9 % (11.5-14.5); WHITE BLOOD COUNT 9.5 10^3/ul (4.5-11.0)
[2017-01-07 08:25] LABS: ALB/GLOB RATIO 0.7 (1.1-1.8); ALKALINE PHOSPHATASE 59 U/L (38-133); ALT/SGPT 46 U/L (7-56); AST/SGOT 60 U/L (15-59); BILIRUBIN,TOTAL 0.4 mg/dL (0.2-1.3); BLOOD UREA NITROGEN 25 mg/dL (7-21); CALCIUM 7.7 mg/dL (8.4-10.5); CARBON DIOXIDE 25 mmol/L (21-33); CHLORIDE 113 mmol/L (98-107); GFR AFRICAN-AMERICAN > 60; GLUCOSE,RANDOM 91 mg/dL (70-110); MAGNESIUM 1.8 mg/dL (1.7-2.2); PHOSPHOROUS 3.2 mg/dL (2.5-4.5); POTASSIUM 4.1 mmol/L (3.6-5.0); SODIUM 142 mmol/L (132-148)
--- NOTE | 2017-01-07 09:27 | PN ---
DATE: 01/07/2017 I examined the patient this morning on behalf of Dr. Bowen Mota, who is currently on vacation until Sunday. The patient is status post treatment of ischiorectal abscess with incision and drainage. The patient has been seen by surgery on a daily basis and these notes were reviewed. The patient indicated a substantial amount of discomfort last night, still passing liquid bowel movements. After passage of flatus, there was some substantial relief of abdominal discomfort and distention. At the current time point, the patient's degree of pain is tolerable and as he indicated, he prefers to defer analgesics if at all possible. The main complaint that he has is passage of liquid bowel movements. He is currently tolerating a liquid diet all right. PHYSICAL EXAMINATION: VITAL SIGNS: I reviewed this patient's vital signs. HEENT: Significant for dry mouth. LUNGS: Decreased breath sounds basilar. HEART: Irregular rhythm. ABDOMEN: Protuberant, irregular bowel sounds. No tenderness in the upper quadrants, however, there was some mild discomfort in the right and left lower quadrants. I reviewed this patient's laboratory data including negative C. difficile. OVERALL ASSESSMENT: This is a 76-year-old patient being seen on behalf of Dr. Bowen Mota. The patient is being treated for ischiorectal abscess with I and D, is currently being evaluated by surgery on a daily basis. He has had several operative procedures since admission. Currently being seen by multiple consultants including pulmonary as well as ID, surgery, cardiology, etc. For dyspepsia and gas related issues, might consider Mylicon suspension or Gas- X or something similar. This will be given at the discretion of the surgery team. The patient is currently on a liquid diet. Therefore, cannot expect to have solid stool. Liquid bowel movements have to be expected, especially while the patient is on antibiotics and note that the Clostridium difficile taken recently has been negative. I would personally continue on the current medications including Zofran and IV PPIs as prescribed by Dr. Mota and the surgical team. Again, Dr. Mota will resume followup with this patient on Sunday. Alpesh Boo DO, PhD cc: [id number] TT: 01/07/2017 09:26:21 Confirmation # [id number] Dictation # [id number] en MTDD
[2017-01-07] MEDS ORDERED: Potassium Chloride 20 mEq ER Tab PO ONE (10:41)
--- NOTE | 2017-01-07 12:58 | PN ---
DATE: 01/07/2017 REASON FOR CONSULTATION AND FOLLOWUP: Status post rectal abscess, history of coronary artery disease , intestinal ileus, improved. BRIEF CLINICAL HISTORY: A 76-year-old male with a past medical history significant for coronary papo ry disease, status post PTCA in the past, history of repeat catheterization in 2013, patent stent, ne gative stress test 2013, history of pacemaker. Admitted with a rectal abscess and later developed il eus, now is improving. Denies any chest pain, shortness of breath, any palpitation. PHYSICAL EXAMINATION: VITAL SIGNS: Temperature afebrile, heart rate , blood pressure 135/55. HEENT: PERRLA. Extraocular muscles intact. NECK: Supple. No carotid bruits. No thyromegaly. CHEST: Clear to auscultation. HEART: S1, S2 regular. ABDOMEN: Soft. EXTREMITIES: Clubbing, cyanosis negative. BLOOD WORKUP: WBC 9.5, hemoglobin 10. , hematocrit 32.9, platelet count 421. Chemistry shows so dium 142, potassium 4. , chloride 113, carbon dioxide 25, anion gap of 8, BUN 25, creatinine 1.2. Total protein , albumin 2, albumin/globulin ratio 0.7. IMPRESSION: Protein calorie malnutrition, severe, which was not present on admission, anemia, rectal abscess, drained, coronary artery disease, status post percutaneous transluminal coronary angioplast y, status post repeat catheterization, patent stent, status post permanent pacemaker. RECOMMENDATION: as tolerated. Supplement electrolytes. Keep potassium around 4, supplement t o prevent ileus. Will follow with you. Thank you, Dr. Orantes, for providing us the opportunity in taking care of the patient. Will follow with you. Gale Mora MD cc: [phone] TT: 01/07/2017 12:57:20 Confirmation # [id number] Dictation # [id number] en
--- NOTE | 2017-01-07 13:23 | PN ---
DATE: 01/07/2017 The patient is seen and examined at bedside. Currently, he is a little more comfortable than before, but is still having distention, status post surgical wound debridement. PHYSICAL EXAMINATION: VITAL SIGNS: Blood pressure is now 123/54, pulse rate of 61. Temperature is 98.0. O2 saturation is 98. HEENT: Normocephalic, atraumatic. [place] conjunctivae. Nonicteric sclerae. NECK: No JVD, no thyromegaly. CARDIOVASCULAR: Regular rate and rhythm. S1, S2 appreciated. No S3 noted. LUNGS: Bilateral air entry is positive, decreased at the base. ABDOMEN: Still is distended with mild tenderness on palpation. EXTREMITIES: Peripheral pulses are +1 with trace pitting edema. LABORATORY DATA: WBCs of 9.5, hemoglobin of 10.8, hematocrit of 32.9, platelets of 421. Chemistry w ithin normal limits. LFTs have been improving. AST is now 60. ASSESSMENT: 1. Distention secondary to mechanical small-bowel obstruction. 2. Hospital-acquired pneumonia. 3. Sepsis secondary to perirectal abscess, status post surgery. 4. Electrolyte imbalance. 5. Transaminitis, which has resolved. 6. Coronary artery disease. PLAN: At this time, we will continue the patient's current treatment. We will discuss again with kath watson about any further treatment in which they want to do including possible colostomy versus rectal tube. IV antibiotics, as well as pain management at this point, and IV fluids. Woody Sharpe MD cc: [id number] TT: 01/07/2017 13:22:42 Confirmation # [id number] Dictation # [id number] christel
--- NOTE | 2017-01-07 13:30 | CP.PCM.PN ---
Subjective - Date & Time of Evaluation Date of Evaluation: 01/07/17 Time of Evaluation: 13:24 - Subjective Subjective: Surgery for Dr. Pimentel Pt s&erin SIMENTAL. Dressing changed by surgical team. Continue to have diarrhea. More bilious color today. Bit more formed. Pain controlled. Denies F/C/N/V/CP/ SOB. Objective - Vital Signs/Intake and Output Vital Signs (last 24 hours): Temp Pulse Resp BP Pulse Ox 98 F 61 16 123/54 L 95 01/07/17 11:19 01/07/17 11:19 01/07/17 11:19 01/07/17 11:19 01/07/17 00:01 Intake and Output: 01/07/17 01/07/17 06:59 18:59 Intake Total 2760 Output Total 850 Balance 1910 - Medications Medications: Current Medications Acetaminophen (Tylenol 650mg/20.3ml Solution Ud) 650 mg GT Q4H PRN PRN Reason: Fever >100.4 F Albuterol/Ipratropium (Duoneb 3 Mg/0.5 Mg (3 Ml) Ud) 3 ml IH Q2H PRN PRN Reason: Shortness of Breath Last Admin: 12/29/16 23:47 Dose: 3 ml Alprazolam (Xanax) 0.5 mg PO TID PRN; Protocol PRN Reason: Anxiety Aspirin (Aspirin Chewable) 81 mg PO DAILY [facility] Last Admin: 01/07/17 09:59 Dose: 81 mg Diphenhydramine HCl (Benadryl) 25 mg PO HS PRN PRN Reason: Insomnia Last Admin: 01/07/17 00:01 Dose: 25 mg Heparin Sodium (Porcine) (Heparin) 5,000 units SC Q8 [facility] Last Admin: 01/07/17 05:39 Dose: 5,000 units Hydralazine HCl (Apresoline) 10 mg IVP Q6 PRN PRN Reason: FOR SBP>160 and Distolic>100 Hydrochlorothiazide (Microzide) 12.5 mg GT DAILY [facility] Last Admin: 01/07/17 09:59 Dose: 12.5 mg Sodium Chloride (Sodium Chloride 0.9%) 1,000 mls @ 50 mls/hr IV .Q20H [facility] Last Admin: 01/07/17 00:01 Dose: 50 mls/hr Cefazolin Sodium (Ancef 1gm In Ns) 1 gm in 100 mls @ 100 mls/hr IVPB Q8 [facility] PRN Reason: Protocol Last Admin: 01/07/17 05:39 Dose: 100 mls/hr Ketorolac Tromethamine (Toradol) 30 mg IVP Q6 PRN PRN Reason: Pain, moderate (4-7) Last Admin: 01/07/17 03:47 Dose: 30 mg Losartan Potassium (Cozaar) 100 mg GT DAILY [facility] Last Admin: 01/07/17 09:59 Dose: 100 mg Morphine Sulfate (Morphine) 2 mg IVP Q4H PRN PRN Reason: Pain, severe (8-10) Ondansetron HCl (Zofran Inj) 4 mg IVP Q4H PRN PRN Reason: Nausea/Vomiting Last Admin: 01/06/17 21:58 Dose: 4 mg Pantoprazole Sodium (Protonix Inj) 40 mg IVP Q12 [facility] Last Admin: 01/07/17 09:59 Dose: 40 mg Povidone Iodine (Betadine 10% Topical Soln) 10 ml TOP QID PRN PRN Reason: Soiled packing Simethicone (Mylicon Chew Tab) 80 mg PO PCHS PRN PRN Reason: GI distress Last Admin: 01/06/17 21:58 Dose: 80 mg Tamsulosin HCl (Flomax) 0.4 mg PO DAILY [facility] Last Admin: 01/07/17 09:59 Dose: 0.4 mg - Labs Labs: 01/07/17 07:30 01/07/17 07:30 PT 13.3 Seconds (9.9-11.8) H 12/29/16 07:15 INR 1.23 (0.93-1.08) H 12/29/16 07:15 APTT 34.9 Seconds (23.7-30.8) H 12/27/16 19:00 - Constitutional Appears: No Acute Distress - Head Exam Head Exam: ATRAUMATIC, NORMAL INSPECTION, NORMOCEPHALIC - Eye Exam Eye Exam: EOMI, Normal appearance, PERRL Pupil Exam: NORMAL ACCOMODATION, PERRL - ENT Exam ENT Exam: Mucous Membranes Moist, Normal Exam - Neck Exam Neck Exam: Full ROM, Normal Inspection. absent: Lymphadenopathy - Respiratory Exam Respiratory Exam: Clear to Ausculation Bilateral, NORMAL BREATHING PATTERN - Cardiovascular Exam Cardiovascular Exam: REGULAR RHYTHM, +S1, +S2. absent: Murmur - GI/Abdominal Exam GI & Abdominal Exam: Distended, Soft, Normal Bowel Sounds. absent: Firm, Guarding, Rigid, Tenderness, Rebound - Rectal Exam Rectal Exam: absent: Black Stool, Bloody Stool, Fecal Impaction, NORMAL INSPECTION Additional comments: [id number] incision. Packed. No bleeding. Erythema - Exam Exam: NORMAL INSPECTION - Extremities Exam Extremities Exam: Full ROM, Normal Capillary Refill, Normal Inspection - Back Exam Back Exam: NORMAL INSPECTION - Neurological Exam Neurological Exam: Alert, Awake, CN II-XII Intact, Oriented x3 - Psychiatric Exam Psychiatric exam: Normal Affect, Normal Mood - Skin Skin Exam: Dry, Intact, Normal Color, Warm Assessment and Plan - Assessment and Plan (Free Text) Assessment: 76 y/o M w/ ischiorectal abscess POD#11 s/p I&D of abscess: WBC trending down. wnl. Afebrile - pack w/ betadine-soaked gauze daily - change dressings PRN - pain management - cont IV Abx per ID Will discuss w/ Dr. Pimentel
[2017-01-07] MEDS: Simethicone 80 mg Chewtab PO PRN (21:47)
[2017-01-08] MEDS: ceFAZolin 1 gm in NS 1 GM/100 ML BAG IVPB SCH ×3 (06:12→22:59)
--- NOTE | 2017-01-08 07:09 | CP.PCM.PN ---
<Ashlyn Moore - Last Filed: 01/08/17 16:16> Subjective - Date & Time of Evaluation Date of Evaluation: 01/08/17 Time of Evaluation: 08:35 - Subjective Subjective: Medicine progress note for Dr Orantes and Dr Sharpe service. Patient reports improvement overall. Patient states he feels more comfortable in the belly. The stool is bilious, but more formed. Afebrile. Denies cp, sob, nausea or vomiting. Objective - Vital Signs/Intake and Output Vital Signs (last 24 hours): Temp Pulse Resp BP Pulse Ox 98.3 F 60 18 161/63 H 97 01/08/17 06:00 01/08/17 06:00 01/08/17 06:00 01/08/17 06:00 01/08/17 06:00 Intake and Output: 01/08/17 01/08/17 06:59 18:59 Intake Total 600 Output Total 850 Balance -250 - Medications Medications: Current Medications Acetaminophen (Tylenol 650mg/20.3ml Solution Ud) 650 mg GT Q4H PRN PRN Reason: Fever >100.4 F Albuterol/Ipratropium (Duoneb 3 Mg/0.5 Mg (3 Ml) Ud) 3 ml IH Q2H PRN PRN Reason: Shortness of Breath Last Admin: 12/29/16 23:47 Dose: 3 ml Alprazolam (Xanax) 0.5 mg PO TID PRN; Protocol PRN Reason: Anxiety Aspirin (Aspirin Chewable) 81 mg PO DAILY [facility] Last Admin: 01/07/17 09:59 Dose: 81 mg Diphenhydramine HCl (Benadryl) 25 mg PO HS PRN PRN Reason: Insomnia Last Admin: 01/07/17 00:01 Dose: 25 mg Heparin Sodium (Porcine) (Heparin) 5,000 units SC Q8 [facility] Last Admin: 01/08/17 06:13 Dose: 5,000 units Hydralazine HCl (Apresoline) 10 mg IVP Q6 PRN PRN Reason: FOR SBP>160 and Distolic>100 Hydrochlorothiazide (Microzide) 12.5 mg GT DAILY [facility] Last Admin: 01/07/17 09:59 Dose: 12.5 mg Sodium Chloride (Sodium Chloride 0.9%) 1,000 mls @ 50 mls/hr IV .Q20H [facility] Last Admin: 01/07/17 21:45 Dose: 50 mls/hr Cefazolin Sodium (Ancef 1gm In Ns) 1 gm in 100 mls @ 100 mls/hr IVPB Q8 [facility] PRN Reason: Protocol Last Admin: 01/08/17 06:12 Dose: 100 mls/hr Ketorolac Tromethamine (Toradol) 30 mg IVP Q6 PRN PRN Reason: Pain, moderate (4-7) Last Admin: 01/07/17 21:46 Dose: 30 mg Losartan Potassium (Cozaar) 100 mg GT DAILY [facility] Last Admin: 01/07/17 09:59 Dose: 100 mg Morphine Sulfate (Morphine) 2 mg IVP Q4H PRN PRN Reason: Pain, severe (8-10) Ondansetron HCl (Zofran Inj) 4 mg IVP Q4H PRN PRN Reason: Nausea/Vomiting Last Admin: 01/06/17 21:58 Dose: 4 mg Pantoprazole Sodium (Protonix Inj) 40 mg IVP Q12 [facility] Last Admin: 01/07/17 21:46 Dose: 40 mg Povidone Iodine (Betadine 10% Topical Soln) 10 ml TOP QID PRN PRN Reason: Soiled packing Simethicone (Mylicon Chew Tab) 80 mg PO HS PRN PRN Reason: GI distress Last Admin: 01/07/17 21:47 Dose: 80 mg Tamsulosin HCl (Flomax) 0.4 mg PO DAILY [facility] Last Admin: 01/07/17 09:59 Dose: 0.4 mg - Labs Labs: 01/07/17 07:30 01/07/17 07:30 PT 13.3 Seconds (9.9-11.8) H 12/29/16 07:15 INR 1.23 (0.93-1.08) H 12/29/16 07:15 APTT 34.9 Seconds (23.7-30.8) H 12/27/16 19:00 - Constitutional Appears: No Acute Distress - Head Exam Head Exam: ATRAUMATIC, NORMAL INSPECTION, NORMOCEPHALIC - Eye Exam Eye Exam: Normal appearance, PERRL. absent: Scleral icterus - ENT Exam ENT Exam: Mucous Membranes Moist - Neck Exam Neck Exam: Normal Inspection - Respiratory Exam Respiratory Exam: Clear to Ausculation Bilateral, NORMAL BREATHING PATTERN. absent: Rales, Rhonchi, Wheezes, Respiratory Distress, Stridor - Cardiovascular Exam Cardiovascular Exam: REGULAR RHYTHM, RRR, +S1, +S2. absent: Murmur - GI/Abdominal Exam GI & Abdominal Exam: Distended (improved.), Soft, Tenderness (right upper and lower.), Hyperactive Bowel Sounds. absent: Firm, Guarding, Rigid - Extremities Exam Extremities Exam: Pedal Edema (+2) - Back Exam Back Exam: NORMAL INSPECTION - Neurological Exam Neurological Exam: Alert, Awake, Oriented x3 - Psychiatric Exam Psychiatric exam: Normal Affect, Normal Mood - Skin Skin Exam: Dry, Warm Additional comments: Incision site packed, and covered with clean dressing. 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 Patient developed pneumonia during the course of hospitalization, which has resolved. Patient also developed mechanical SOB, and currently have abdominal distention, and uncontrolled diarrhea. Pending final surgical decision. Plan: 1) Distended abdomen secondary to mechanical SBO. - Patient had ngt inserted on Sunday, removed 01/01 due to lack of output - BM more formed, but abdomen still soft and distended. - still c/o diarrhea after eating - c. diff negative x2 - continue simethicone - surgery following - will repeat flat plate. 2) HAP- resolved - continue duoneb prn - on ancef. 3) Sepsis 2nd to Perirectal abscess s/p surgery - - sepsis resolved - on abx 4) Perirectal abscess s/p surgery - grew ecoli and strep intermidius - on abx - post op wound care as per surgery 5) Hypokalemia from gi loss- resolved, will continue monitor 6) DENISE - resolved - will continue to monitor. 7) Transaminitis-resolved 8) CAD w/ stents - continue hctz and cozaar for htn, hydralazine prn - continue asa 9) Normocytic anemia- - h/h stable, will continue to monitor 10) DVT and GI prophylaxis: protonix and heparin sc. 11) Dispo-TRCU? Patient seen, examined, discussed with Dr Sharpe. <Woody Sharpe - Last Filed: 01/26/17 18:51> Objective - Vital Signs/Intake and Output Vital Signs (last 24 hours): Temp Pulse Resp BP Pulse Ox 98.3 F 62 18 129/57 L 95 01/25/17 17:50 01/25/17 17:50 01/25/17 17:50 01/25/17 17:50 01/25/17 06:00 - Labs Labs: 01/22/17 06:00 01/22/17 06:00 PT 12.6 Seconds (9.9-11.8) H 01/10/17 12:30 INR 1.17 (0.93-1.08) H 01/10/17 12:30 APTT 33.4 Seconds (23.7-30.8) H 01/10/17 12:30 Attending/Attestation - Attestation I have personally seen and examined this patient.: Yes I have fully participated in the care of the patient.: Yes I have reviewed all pertinent clinical information, including history, physical exam and plan: Yes Notes (Text): 01/26/17 18:51 Medical record note made by the resident after discussion with my direction and input after the patient was personally seen and examined by me. I have reviewed the chart and agree that the record accurately reflects by personal performance of the history, physical exam, data review, and medical decision-making, in the course for the patient. I have also personally directed the plan of care.
[2017-01-08 07:38] LABS: ADD MANUAL DIFF? NO
[2017-01-08 07:41] LABS: BASO # 0.03 K/mm3 (0.0-2.0); BASO % 0.4 % (0.0-3.0); EOS # 0.2 (0.0-0.7); GRAN # 5.25 (1.4-6.5); GRAN % 68.6 % (50.0-68.0); HEMATOCRIT 33.6 % (42.0-52.0); LYMPH # 1.8 (1.2-3.4); LYMPH % 22.9 % (22.0-35.0); MEAN CELL VOLUME 91.8 fL (80.0-105.0); MEAN CORPUSCULAR HEMOGLOBIN 29.8 pg (25.0-35.0); MEAN CORPUSCULAR HGB CONC 32.4 g/dl (31.0-37.0); MEAN PLATELET VOLUME 9.4 fl (7.0-11.0); MONO # 0.5 (0.1-0.6); MONO % 6.1 % (1.0-6.0); PLATELET COUNT 427 10^3/uL (120.0-450.0); WHITE BLOOD COUNT 7.7 10^3/ul (4.5-11.0)
[2017-01-08 08:05] LABS: ALB/GLOB RATIO 0.7 (1.1-1.8); ALKALINE PHOSPHATASE 51 U/L (38-133); ALT/SGPT 46 U/L (7-56); AST/SGOT 49 U/L (15-59); BILIRUBIN,TOTAL 0.4 mg/dL (0.2-1.3); BLOOD UREA NITROGEN 22 mg/dL (7-21); CALCIUM 7.8 mg/dL (8.4-10.5); CARBON DIOXIDE 23 mmol/L (21-33); CHLORIDE 113 mmol/L (98-107); GFR AFRICAN-AMERICAN > 60; GLUCOSE,RANDOM 83 mg/dL (70-110); MAGNESIUM 1.8 mg/dL (1.7-2.2); PHOSPHOROUS 3.2 mg/dL (2.5-4.5); POTASSIUM 4.4 mmol/L (3.6-5.0); SODIUM 140 mmol/L (132-148); TOTAL PROTEIN 5.1 g/dL (5.8-8.3)
--- NOTE | 2017-01-08 08:14 | PN ---
DATE: 01/08/2017 SUBJECTIVE: The patient appears very comfortable this morning. He is not short of breath at rest. PHYSICAL EXAMINATION: VITAL SIGNS: Temperature is 98.3, pulse 60, respirations 18, blood pressure 161 /63. Oxygen saturation on nasal cannula is 97%. HEENT: Normocephalic, atraumatic. No JVD. CARDIOVASCULAR: Systolic ejection murmur at the lower left sternal border. No S3 gallop. LUNGS: Clear bilaterally. EXTREMITIES: Mild edema. No cyanosis, no clubbing. Calves are nontender to palpation. GASTROINTESTINAL: Abdomen is soft. It is less distended and nontender to palpation. Bowel sounds are positive. SKIN: No acute rash. NEUROLOGIC: Limited at the present time. IMPRESSION: 1. Perirectal abscess. Status post surgery. 2. Left lower lobe pneumonia -- resolving. 3. Coronary artery disease. 4. Cardiomyopathy. 5. Mild anemia. PLAN: The patient appears very comfortable this morning. He is not short of breath at rest. His abdomen is better on physical exam. He states he is feeling much, much better overall. On physical exam, his lungs are now clear. Oxygen saturation on nasal cannula is 97%. I would continue with the frequent incentive spirometry and have the patient out of bed as much as possible. The patient remains on antibiotic therapy -- as per infectious disease. There are no temperatures noted. The leukocytosis has resolved. I would continue with the surgical and GI evaluations. Inputs are noted. Clinical status of the patient is significantly improved -- compared to last week. I will discuss the above with the attending physician. Jaden Romero MD cc: [phone] TT: 01/08/2017 08:13:30 Confirmation # [id number] Dictation # [id number] en MTDD
--- NOTE | 2017-01-08 08:51 | CP.PCM.PN ---
Subjective - Date & Time of Evaluation Date of Evaluation: 01/08/17 Time of Evaluation: 08:48 - Subjective Subjective: General Surgery Progress Note for Dr. Pimentel This 76M was seen and examined by me this Am at bedside. He reports no acute events overnight. His packing and dressing was changed this Am at bedside. He reports his pain is significantly better he is ambulating. He denies any fevers , chills, chest pain nausea or vomiting however he does admit to watery diarrhea. Objective - Vital Signs/Intake and Output Vital Signs (last 24 hours): Temp Pulse Resp BP Pulse Ox 98.3 F 60 18 161/63 H 97 01/08/17 06:00 01/08/17 06:00 01/08/17 06:00 01/08/17 06:00 01/08/17 06:00 Intake and Output: 01/08/17 01/08/17 06:59 18:59 Intake Total 600 Output Total 850 Balance -250 - Medications Medications: Current Medications Acetaminophen (Tylenol 650mg/20.3ml Solution Ud) 650 mg GT Q4H PRN PRN Reason: Fever >100.4 F Albuterol/Ipratropium (Duoneb 3 Mg/0.5 Mg (3 Ml) Ud) 3 ml IH Q2H PRN PRN Reason: Shortness of Breath Last Admin: 12/29/16 23:47 Dose: 3 ml Alprazolam (Xanax) 0.5 mg PO TID PRN; Protocol PRN Reason: Anxiety Aspirin (Aspirin Chewable) 81 mg PO DAILY [facility] Last Admin: 01/07/17 09:59 Dose: 81 mg Diphenhydramine HCl (Benadryl) 25 mg PO HS PRN PRN Reason: Insomnia Last Admin: 01/07/17 00:01 Dose: 25 mg Heparin Sodium (Porcine) (Heparin) 5,000 units SC Q8 [facility] Last Admin: 01/08/17 06:13 Dose: 5,000 units Hydralazine HCl (Apresoline) 10 mg IVP Q6 PRN PRN Reason: FOR SBP>160 and Distolic>100 Hydrochlorothiazide (Microzide) 12.5 mg GT DAILY [facility] Last Admin: 01/07/17 09:59 Dose: 12.5 mg Sodium Chloride (Sodium Chloride 0.9%) 1,000 mls @ 50 mls/hr IV .Q20H [facility] [place] Last Admin: 01/07/17 21:45 Dose: 50 mls/hr Cefazolin Sodium (Ancef 1gm In Ns) 1 gm in 100 mls @ 100 mls/hr IVPB Q8 [facility] PRN Reason: Protocol Last Admin: 01/08/17 06:12 Dose: 100 mls/hr Ketorolac Tromethamine (Toradol) 30 mg IVP Q6 PRN PRN Reason: Pain, moderate (4-7) Last Admin: 01/07/17 21:46 Dose: 30 mg Losartan Potassium (Cozaar) 100 mg GT DAILY [facility] [place] Last Admin: 01/07/17 09:59 Dose: 100 mg Morphine Sulfate (Morphine) 2 mg IVP Q4H PRN PRN Reason: Pain, severe (8-10) Ondansetron HCl (Zofran Inj) 4 mg IVP Q4H PRN PRN Reason: Nausea/Vomiting Last Admin: 01/06/17 21:58 Dose: 4 mg Pantoprazole Sodium (Protonix Inj) 40 mg IVP Q12 [facility] Last Admin: 01/07/17 21:46 Dose: 40 mg Povidone Iodine (Betadine 10% Topical Soln) 10 ml TOP QID PRN PRN Reason: Soiled packing Simethicone (Mylicon Chew Tab) 80 mg PO PCHS PRN PRN Reason: GI distress Last Admin: 01/07/17 21:47 Dose: 80 mg Tamsulosin HCl (Flomax) 0.4 mg PO DAILY [facility] [place] Last Admin: 01/07/17 09:59 Dose: 0.4 mg - Labs Labs: 01/08/17 06:00 01/08/17 06:00 PT 13.3 Seconds (9.9-11.8) H 12/29/16 07:15 INR 1.23 (0.93-1.08) H 12/29/16 07:15 APTT 34.9 Seconds (23.7-30.8) H 12/27/16 19:00 - Constitutional Appears: No Acute Distress - Head Exam Head Exam: ATRAUMATIC, NORMAL INSPECTION, NORMOCEPHALIC - Eye Exam Eye Exam: EOMI, Normal appearance - ENT Exam ENT Exam: Mucous Membranes Moist, Normal Exam - Neck Exam Neck Exam: Full ROM, Normal Inspection. absent: Lymphadenopathy - Respiratory Exam Respiratory Exam: NORMAL BREATHING PATTERN - Cardiovascular Exam Cardiovascular Exam: REGULAR RHYTHM - Rectal Exam Rectal Exam: absent: Black Stool, Bloody Stool, Fecal Impaction, NORMAL INSPECTION Additional comments: [id number] incision. Packed. No bleeding. Erythema - Exam Exam: NORMAL INSPECTION - Extremities Exam Extremities Exam: Full ROM, Normal Capillary Refill, Normal Inspection - Back Exam Back Exam: NORMAL INSPECTION - Neurological Exam Neurological Exam: Alert, Awake, CN II-XII Intact, Oriented x3 - Psychiatric Exam Psychiatric exam: Normal Affect, Normal Mood - Skin Skin Exam: Dry, Intact, Normal Color, Warm Assessment and Plan - Assessment and Plan (Free Text) Assessment: 76 y/o M w/ ischiorectal abscess POD#12 s/p I&D of abscess - Vital signs stable, Labs grossly normal - pack w/ betadine-soaked gauze daily - change dressings PRN - pain management - cont IV Abx per ID Will discuss w/ Dr. Loren Loyd PGY-4
--- NOTE | 2017-01-08 13:38 | PN ---
DATE: 01/08/2017 The patient is in bed, in no acute distress, nontoxic. PHYSICAL EXAMINATION: VITAL SIGNS: Temperature is 98, blood pressure is 140/50, respiratory rate of 18, heart rate of 60. HEENT: Unremarkable. NECK: Supple. LUNGS: Have decreased breath sounds. HEART: Normal S1, S2. ABDOMEN: Soft, nontender. LABORATORY EXAMINATION: Reveals the patient's white count is 7.7 and hemoglobin of 10, platelets of 427. Chemistries are noted. The patient is on cefazolin. Microbiology is noted, E. coli and Strep intermedius. ASSESSMENT AND PLAN: A 76-year-old male with sepsis due to perirectal abscess, status post incision and drainage, post-procedure day #11, growing Strep milleri and Escherichia coli. The patient with a left lower lobe healthcare-associated pneumonia, which is resolved and abdominal distention, dyslipi demia, gastroesophageal reflux disease, hypertension, history of back surgery, history of a carotid e ndarterectomy, history of third degree atrioventricular block and a pacemaker and prostate cancer, st atus post robotic reconstruction 6 years ago with coronary artery disease and history of percutaneous intervention. Currently on cefazolin. Will follow with you. Guillaume Spence MD cc: [id number] TT: 01/08/2017 13:38:06 Confirmation # [id number] Dictation # [id number] en
--- NOTE | 2017-01-08 15:21 | RAD ---
PROCEDURE: Portable abdomen HISTORY: f/u COMPARISON: 01/05/2017 TECHNIQUE: Two views FINDINGS: There is no significant change in the pattern of small bowel obstruction. Multiple dilated loops are seen measuring approximately 4 cm in diameter. IMPRESSION: No significant change in small bowel obstruction
[2017-01-08] MEDS: Simethicone 80 mg Chewtab PO PRN (23:09)
[2017-01-09] MEDS: ceFAZolin 1 gm in NS 1 GM/100 ML BAG IVPB SCH ×3 (06:04→22:15)
[2017-01-09 06:56] LABS: ADD MANUAL DIFF? NO
[2017-01-09 07:05] LABS: BASO # 0.04 K/mm3 (0.0-2.0); BASO % 0.6 % (0.0-3.0); EOS # 0.1 (0.0-0.7); EOS % 1.7 % (1.5-5.0); GRAN # 4.27 (1.4-6.5); GRAN % 67.3 % (50.0-68.0); HEMATOCRIT 31.3 % (42.0-52.0); LYMPH # 1.4 (1.2-3.4); LYMPH % 22.7 % (22.0-35.0); MEAN CELL VOLUME 90.5 fL (80.0-105.0); MEAN CORPUSCULAR HEMOGLOBIN 30.3 pg (25.0-35.0); MEAN CORPUSCULAR HGB CONC 33.5 g/dl (31.0-37.0); MEAN PLATELET VOLUME 9.7 fl (7.0-11.0); MONO # 0.5 (0.1-0.6); MONO % 7.7 % (1.0-6.0); PLATELET COUNT 442 10^3/uL (120.0-450.0); RED CELL DISTRIBUTION WIDTH 13.9 % (11.5-14.5); WHITE BLOOD COUNT 6.4 10^3/ul (4.5-11.0)
[2017-01-09 07:22] LABS: ALB/GLOB RATIO 0.7 (1.1-1.8); ALKALINE PHOSPHATASE 51 U/L (38-133); ALT/SGPT 40 U/L (7-56); AST/SGOT 47 U/L (15-59); BILIRUBIN,TOTAL 0.4 mg/dL (0.2-1.3); BLOOD UREA NITROGEN 16 mg/dL (7-21); CALCIUM 7.8 mg/dL (8.4-10.5); CARBON DIOXIDE 23 mmol/L (21-33); CHLORIDE 110 mmol/L (95-110); GFR AFRICAN-AMERICAN > 60; GLUCOSE,RANDOM 85 mg/dL (70-110); MAGNESIUM 1.6 mg/dL (1.7-2.2); PHOSPHOROUS 2.8 mg/dL (2.5-4.5); SODIUM 137 mmol/L (132-148); TOTAL PROTEIN 4.8 g/dL (5.8-8.3)
--- NOTE | 2017-01-09 07:48 | CP.PCM.PN ---
Subjective - Date & Time of Evaluation Date of Evaluation: 01/09/17 Time of Evaluation: 06:45 - Subjective Subjective: General Surgery Dr. Pimentel Pt S&E @bedside. NAEO. still having abd distension after eating. reports improvement in diarrhea. denies F/C, N/V. Objective - Vital Signs/Intake and Output Vital Signs (last 24 hours): Temp Pulse Resp BP Pulse Ox 98.1 F 60 19 158/66 H 93 L 01/09/17 06:00 01/09/17 06:00 01/09/17 06:00 01/09/17 06:00 01/09/17 06:00 Intake and Output: 01/09/17 01/09/17 06:59 18:59 Intake Total 280 Output Total 850 Balance -570 - Medications Medications: Current Medications Acetaminophen (Tylenol 650mg/20.3ml Solution Ud) 650 mg GT Q4H PRN PRN Reason: Fever >100.4 F Albuterol/Ipratropium (Duoneb 3 Mg/0.5 Mg (3 Ml) Ud) 3 ml IH Q2H PRN PRN Reason: Shortness of Breath Last Admin: 12/29/16 23:47 Dose: 3 ml Alprazolam (Xanax) 0.5 mg PO TID PRN; Protocol PRN Reason: Anxiety Aspirin (Aspirin Chewable) 81 mg PO DAILY [facility] Last Admin: 01/08/17 09:54 Dose: 81 mg Diphenhydramine HCl (Benadryl) 25 mg PO HS PRN PRN Reason: Insomnia Last Admin: 01/09/17 01:37 Dose: 25 mg Heparin Sodium (Porcine) (Heparin) 5,000 units SC Q8 [facility] Last Admin: 01/09/17 06:04 Dose: 5,000 units Hydralazine HCl (Apresoline) 10 mg IVP Q6 PRN PRN Reason: FOR SBP>160 and Distolic>100 Hydrochlorothiazide (Microzide) 12.5 mg GT DAILY [facility] Last Admin: 01/08/17 09:54 Dose: 12.5 mg Cefazolin Sodium (Ancef 1gm In Ns) 1 gm in 100 mls @ 100 mls/hr IVPB Q8 [facility] PRN Reason: Protocol Last Admin: 01/09/17 06:04 Dose: 100 mls/hr Ketorolac Tromethamine (Toradol) 30 mg IVP Q6 PRN PRN Reason: Pain, moderate (4-7) Last Admin: 01/07/17 21:46 Dose: 30 mg Losartan Potassium (Cozaar) 100 mg GT DAILY [facility] Last Admin: 01/08/17 09:54 Dose: 100 mg Ondansetron HCl (Zofran Inj) 4 mg IVP Q4H PRN PRN Reason: Nausea/Vomiting Last Admin: 01/06/17 21:58 Dose: 4 mg Pantoprazole Sodium (Protonix Inj) 40 mg IVP Q12 [facility] Last Admin: 01/08/17 23:00 Dose: 40 mg Povidone Iodine (Betadine 10% Topical Soln) 10 ml TOP QID PRN PRN Reason: Soiled packing Simethicone (Mylicon Chew Tab) 80 mg PO PCHS PRN PRN Reason: GI distress Last Admin: 01/08/17 23:09 Dose: 80 mg Tamsulosin HCl (Flomax) 0.4 mg PO DAILY [facility] Last Admin: 01/08/17 09:54 Dose: 0.4 mg - Labs Labs: 01/09/17 06:40 01/09/17 06:40 PT 13.3 Seconds (9.9-11.8) H 12/29/16 07:15 INR 1.23 (0.93-1.08) H 12/29/16 07:15 APTT 34.9 Seconds (23.7-30.8) H 12/27/16 19:00 - Constitutional Appears: Non-toxic, No Acute Distress - Head Exam Head Exam: NORMAL INSPECTION - Eye Exam Eye Exam: Normal appearance - ENT Exam ENT Exam: Mucous Membranes Moist - Respiratory Exam Respiratory Exam: absent: Accessory Muscle Use, Respiratory Distress - Cardiovascular Exam Cardiovascular Exam: absent: Bradycardia, Tachycardia - GI/Abdominal Exam GI & Abdominal Exam: Distended, Soft. absent: Firm, Guarding, Tenderness, Rebound - Extremities Exam Extremities Exam: Pedal Edema - Neurological Exam Neurological Exam: Alert, Awake, Oriented x3 - Psychiatric Exam Psychiatric exam: Normal Affect, Normal Mood - Skin Skin Exam: Dry, Intact, Normal Color, Warm Assessment and Plan - Assessment and Plan (Free Text) Assessment: 76 y/o M w/ ischiorectal abscess POD#13 s/p I&D of abscess - OR for wound debridement - apply nystatin powder to groin - apply scrotal support--> keep penis elevated - apply [place] catheter --> keep area dry - change dressings PRN - daily packing changes by Surgical team - cont IV Abx per ID - pain management Pt discussed w/ Dr. Loren Cat DO PGY1
--- NOTE | 2017-01-09 07:48 | PN ---
DATE: 01/09/2017 SUBJECTIVE: The patient appears comfortable this morning. He is not short of breath at rest. PHYSICAL EXAMINATION: VITAL SIGNS: Temperature is 98.1, pulse 60, respirations 19, blood pressure 158 /66. Oxygen saturation on room air is 93%. Oxygen saturation on nasal cannula is 97%. HEENT: Normocephalic, atraumatic. No JVD. CARDIOVASCULAR: Systolic ejection murmur at the lower left sternal border. No S3 gallop. LUNGS: Clear bilaterally. EXTREMITIES: Mild edema. No cyanosis, no clubbing. Calves are nontender to palpation. GASTROINTESTINAL: Abdomen is soft. It remains mildly distended and mildly tender to palpation. Bowel sounds are positive. SKIN: No acute rash. NEUROLOGIC: Limited at the present time. IMPRESSION: 1. Perirectal abscess. Status post surgery. 2. Left lower lobe pneumonia -- resolved. 3. Coronary artery disease. 4. Cardiomyopathy. 5. Mild anemia. PLAN: The patient appears comfortable this morning. He is not short of breath at rest. He states he has no problems breathing. He does state to feeling better overall. On physical exam, his lungs remain clear. In addition, there is no significant alveolar-arterial gradient. The patient remains on antibiotic therapy -- as per infectious disease. There are no temperatures noted. The leukocytosis has completely resolved. I would continue with the GI and surgical evaluations. Inputs are noted. At this point in time, no additional pulmonary intervention is needed or warranted. I did impress upon the patient-- one more time-- to use his incentive spirometer frequently. I would also like to see him out of bed as much as possible. I will thus follow up on this patient again as requested. Please call me for any additional pulmonary questions or problems with this patient. I would be happy to reevaluate. Thank you for allowing me to participate in the care of this patient. Jaden Romero MD cc: [phone] TT: 01/09/2017 07:48:00 Confirmation # [id number] Dictation # [id number] en MTDD
--- NOTE | 2017-01-09 08:24 | PN ---
DATE: 01/06/2017 REASON FOR CONSULTATION AND FOLLOWUP: Status post rectal abscess, history of coronary artery disease , status post intestinal ileus. BRIEF CLINICAL HISTORY: A 76-year-old male with past medical history significant for coronary artery disease status post PTCA in the past, history of repeat catheterization in 2013, status post a stent , negative stress test in 2014, history of pacemaker, admitted with rectal abscess, positive history of ileus. Now patient started tolerating full liquid. Denies any chest pain clearly. Denies any ch est pain, shortness of breath, any palpitation. PHYSICAL EXAMINATION: VITAL SIGNS: Temperature afebrile, heart rate 61, blood pressure 138/54. HEENT: PERRLA. Extraocular muscles intact. NECK: Supple. No carotid bruit or thyromegaly. CHEST: Clear to auscultation. HEART: S1, S2 regular. ABDOMEN: Soft. EXTREMITIES: Clubbing and cyanosis negative. LABORATORY DATA: Blood workup as follows: WBC____ , hemoglobin 11____, hematocrit 34.____, platelet count 381. Chemistry shows sodium 140, potassium ____.9, chloride 111, carbon dioxide 24, anion gap of 9, BUN 30, creatinine 1.2. Total protein 5.0, albumin 2.1, albumin/globulin ratio 0.7. IMPRESSION: Severe protein-calorie malnutrition, which was not present on admission, anemia, rectal abscess, Ileus, hypokalemia, supplemented potassium, coronary artery disease status post percutaneous transluminal coronary angioplasty, negative stress test, status post permanent pacemaker. RECOMMENDATION: Continue p.o. as tolerated, supplement potassium. Keep potassium around 4 to preven t ileus. Will follow with you. Thank you, Dr. Orantes for providing the opportunity in taking care of the patient. Gale Mora MD cc: [id number] TT: 01/06/2017 14:43:35 Confirmation # [id number] Dictation # [id number] jn
--- NOTE | 2017-01-09 08:26 | PN ---
DATE: 01/08/2017 REASON FOR CONSULTATION AND FOLLOWUP: Status post rectal abscess, history of coronary artery disease , intestinal obstruction, ileus. BRIEF CLINICAL HISTORY: This is a 76-year-old male with past medical history significant for coronar y artery disease status post PTCA in the past, history of repeat catheterization in 2013, patent sten t, negative stress test in 2014, status post permanent pacemaker admitted with rectal abscess, compl icated by incision and drainage, complicated by ileus. Denies any chest pain, shortness of breath, a ny palpitation. Now is tolerating fluid. PHYSICAL EXAMINATION: VITAL SIGNS: Temperature afebrile, heart rate 64, blood pressure 145/57. HEENT: PERRLA. Extraocular muscles intact. NECK: Supple. No carotid bruits. No thyromegaly. CHEST: Clear to auscultation. HEART: S1, S2 regular. ABDOMEN: Soft. EXTREMITIES: Clubbing and cyanosis negative. LABORATORY DATA: Blood workup as follows: WBC 7.____, hemoglobin 10.9, hematocrit 33.6, platelet co unt 427. Chemistry shows sodium 140, potassium 4.4, chloride 113, carbon dioxide 23, anion gap of 8. BUN 22, creatinine 1.1. Total protein 5.1, albumin 2, albumin/globulin ratio 0.7. IMPRESSION: Protein calorie malnutrition ____ was not present on admission. Anemia, ileus - improvi ng, rectal abscess, status post drainage, hypokalemia - improved, coronary artery disease, status pos t stent. Repeat catheterization, patent stent. Recent stress test was negative, status post permane nt pacemaker. RECOMMENDATION: Supplement potassium as needed. Keep potassium 4 to prevent ileus. Continue ____. We will follow with you. Thank you, Dr. Orantes, for providing me the opportunity in taking care of the patient. Gale Mora MD cc: [id number] TT: 01/08/2017 13:15:12 Confirmation # [id number] Dictation # [id number] christel
--- NOTE | 2017-01-09 08:27 | PN ---
DATE: 01/07/2017 The patient is in bed, in no acute distress, nontoxic. PHYSICAL EXAMINATION: VITAL SIGNS: Temperature is 98, blood pressure is 135/50, respiratory rate of 16. HEENT: Unremarkable. NECK: Supple. LUNGS: Have decreased breath sounds. HEART: Normal S1, S2. ABDOMEN: Soft. LABORATORY EXAMINATION: Reveals the white count is 9.5, hemoglobin of 10, platelets of 421. Pattern Gater jose juan reveals a BUN of 25, creatinine of 1.0, 1.2. Procalcitonin 0.86. The patient's hepatitis C is reactive. However, the hepatitis C RNA not detected. Hepatitis A and B are nonreactive. Microbiolo gy reveals the blood cultures have no growth. The stool for C. diff negative antigen and negative to paul and MRSA is not detected and Escherichia coli and Strep medius is noted from the perirectal absce ss culture. The patient is on cefazolin 1 gram IV q. 8. Dr. Weiner's note is reviewed. ASSESSMENT AND PLAN: A 76-year-old male with sepsis due to perirectal abscess, status post incision and drainage, post procedure day #11, growing Streptococcus milleri intermedius and Escherichia coli. The patient with a lower left healthcare-associated pneumonia. It is resolving as per Dr. Weiner's note. The patient with a history of dyslipidemia, gastroesophageal reflux disease, hypertension, his tory of back surgery, history of carotid endarterectomy, history of third degree atrioventricular blo ck requiring a pacemaker, history of prostate cancer, history of robotic reconstruction of prostate 6 years ago in face of coronary artery disease and percutaneous coronary intervention. Currently on c efazolin, afebrile with a normal white count at 9.5 today. May complete the treatment for perirectal abscess, which has had incision and drainage, with p.o. Vantin and p.o. Flagyl. Currently, on IV ce fazolin. Guillaume Spence MD cc: [phone] TT: 01/07/2017 10:40:11 Confirmation # [id number] Dictation # [id number] en
[2017-01-09] MEDS ORDERED: Magnesium Sulfate 2 GM in Sodium Chloride 0.9% 100 ML IV ONE (09:01)
--- NOTE | 2017-01-09 09:03 | CP.PCM.PN ---
<Ashlyn Moore - Last Filed: 01/09/17 15:27> Subjective - Date & Time of Evaluation Date of Evaluation: 01/09/17 Time of Evaluation: 07:10 - Subjective Subjective: Medicine progress note for Dr Orantes and Dr Sharpe. No acute events overnight. Patient reports his stool is more formed. Denies cp, ob, n/v/d. Denies fever or chills. The abdomen is still distended, however patient reports he is feeling more comfortable. Objective - Vital Signs/Intake and Output Vital Signs (last 24 hours): Temp Pulse Resp BP Pulse Ox 98.1 F 60 19 158/66 H 93 L 01/09/17 06:00 01/09/17 06:00 01/09/17 06:00 01/09/17 06:00 01/09/17 06:00 Intake and Output: 01/09/17 01/09/17 06:59 18:59 Intake Total 280 Output Total 850 Balance -570 - Medications Medications: Current Medications Acetaminophen (Tylenol 650mg/20.3ml Solution Ud) 650 mg GT Q4H PRN PRN Reason: Fever >100.4 F Albuterol/Ipratropium (Duoneb 3 Mg/0.5 Mg (3 Ml) Ud) 3 ml IH Q2H PRN PRN Reason: Shortness of Breath Last Admin: 12/29/16 23:47 Dose: 3 ml Alprazolam (Xanax) 0.5 mg PO TID PRN; Protocol PRN Reason: Anxiety Aspirin (Aspirin Chewable) 81 mg PO DAILY [facility] Last Admin: 01/08/17 09:54 Dose: 81 mg Diphenhydramine HCl (Benadryl) 25 mg PO HS PRN PRN Reason: Insomnia Last Admin: 01/09/17 01:37 Dose: 25 mg Heparin Sodium (Porcine) (Heparin) 5,000 units SC Q8 [facility] Last Admin: 01/09/17 06:04 Dose: 5,000 units Hydralazine HCl (Apresoline) 10 mg IVP Q6 PRN PRN Reason: FOR SBP>160 and Distolic>100 Hydrochlorothiazide (Microzide) 12.5 mg GT DAILY [facility] Last Admin: 01/08/17 09:54 Dose: 12.5 mg Cefazolin Sodium (Ancef 1gm In Ns) 1 gm in 100 mls @ 100 mls/hr IVPB Q8 [facility] PRN Reason: Protocol Last Admin: 01/09/17 06:04 Dose: 100 mls/hr Magnesium Sulfate 2 gm/ Sodium (Chloride) 104 mls @ 102 mls/hr IV ONCE ONE Stop: 01/09/17 10:02 Ketorolac Tromethamine (Toradol) 30 mg IVP Q6 PRN PRN Reason: Pain, moderate (4-7) Last Admin: 01/07/17 21:46 Dose: 30 mg Losartan Potassium (Cozaar) 100 mg GT DAILY [facility] Last Admin: 01/08/17 09:54 Dose: 100 mg Ondansetron HCl (Zofran Inj) 4 mg IVP Q4H PRN PRN Reason: Nausea/Vomiting Last Admin: 01/06/17 21:58 Dose: 4 mg Pantoprazole Sodium (Protonix Inj) 40 mg IVP Q12 [facility] Last Admin: 01/08/17 23:00 Dose: 40 mg Povidone Iodine (Betadine 10% Topical Soln) 10 ml TOP QID PRN PRN Reason: Soiled packing Simethicone (Mylicon Chew Tab) 80 mg PO PCHS PRN PRN Reason: GI distress Last Admin: 01/08/17 23:09 Dose: 80 mg Tamsulosin HCl (Flomax) 0.4 mg PO DAILY [facility] Last Admin: 01/08/17 09:54 Dose: 0.4 mg - Labs Labs: 01/09/17 06:40 01/09/17 06:40 PT 13.3 Seconds (9.9-11.8) H 12/29/16 07:15 INR 1.23 (0.93-1.08) H 12/29/16 07:15 APTT 34.9 Seconds (23.7-30.8) H 12/27/16 19:00 - Constitutional Appears: No Acute Distress - Head Exam Head Exam: ATRAUMATIC, NORMAL INSPECTION, NORMOCEPHALIC - Eye Exam Eye Exam: Normal appearance. absent: Scleral icterus - ENT Exam ENT Exam: Mucous Membranes Moist - Neck Exam Neck Exam: Normal Inspection - Respiratory Exam Respiratory Exam: Clear to Ausculation Bilateral, NORMAL BREATHING PATTERN. absent: Rales, Rhonchi, Wheezes, Respiratory Distress, Stridor - Cardiovascular Exam Cardiovascular Exam: REGULAR RHYTHM, RRR, +S1, +S2 - GI/Abdominal Exam GI & Abdominal Exam: Distended, Soft, Hypoactive Bowel Sounds. absent: Firm, Guarding, Rigid, Tenderness - Extremities Exam Extremities Exam: Pedal Edema - Back Exam Back Exam: NORMAL INSPECTION - Neurological Exam Neurological Exam: Alert, Awake, Oriented x3 - Psychiatric Exam Psychiatric exam: Normal Affect, Normal Mood - Skin Skin Exam: Dry, Normal Color, Warm Additional comments: The dressin around the anal region soaked with stool. 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 Patient developed pneumonia during the course of hospitalization, which has resolved. Patient also developed mechanical SOB, and currently have abdominal distention, and uncontrolled diarrhea. Patient to undergo surgical debridement today. Plan: 1) Abdominal distension 2nd to sbo - repeat flat plate with no significant change, however on examn pt's abdomen is softer, - patient still passing stool after po intake - c.diff negative x2 - Role of ngt/rectal tube or surgical decompression - surgery following 2) HAP- resolved - continue duoneb prn - on ancef. - d/c tele 3) Sepsis 2nd to Perirectal abscess s/p surgery - - sepsis resolved - no growth on bcx - on ancef - id following 4) Perirectal abscess s/p surgery -Going for wound debridement today - abscess grew ecoli and strep intermidius - completed abx - post op wound care as per surgery 5) Hyppomagnesemia- will replete and monitor 6) DENISE - resolved - will continue to monitor. 7) Transaminitis-resolved 8) CAD w/ stents - continue ASA, hctz and cozaar 9) Normocytic anemia- - h/h stable, will continue to monitor 10) DVT and GI prophylaxis: protonix and heparin sc. 11) Dispo-TRCU? pending Patient seen, examined, discussed with Dr Sharpe. <Woody Sharpe - Last Filed: 01/26/17 18:55> Objective - Vital Signs/Intake and Output Vital Signs (last 24 hours): Temp Pulse Resp BP Pulse Ox 98.3 F 62 18 129/57 L 95 01/25/17 17:50 01/25/17 17:50 01/25/17 17:50 01/25/17 17:50 01/25/17 06:00 - Labs Labs: 01/22/17 06:00 01/22/17 06:00 PT 12.6 Seconds (9.9-11.8) H 01/10/17 12:30 INR 1.17 (0.93-1.08) H 01/10/17 12:30 APTT 33.4 Seconds (23.7-30.8) H 01/10/17 12:30 Attending/Attestation - Attestation I have personally seen and examined this patient.: Yes I have fully participated in the care of the patient.: Yes I have reviewed all pertinent clinical information, including history, physical exam and plan: Yes Notes (Text): 01/26/17 18:55 Medical record note made by the resident after discussion with my direction and input after the patient was personally seen and examined by me. I have reviewed the chart and agree that the record accurately reflects by personal performance of the history, physical exam, data review, and medical decision-making, in the course for the patient. I have also personally directed the plan of care.
[2017-01-09] MEDS ORDERED: Lidocaine 1% Inj (20ml) ONE (10:19)
[2017-01-09] MEDS ORDERED: Bupivacaine 0.5% Inj(30mL) ONE (10:19)
[2017-01-09] MEDS ORDERED: Propofol 10 mg/ml Inj (20 ML) ONE ×2 (10:48→11:07)
[2017-01-09] MEDS ORDERED: Midazolam 2 MG/2 ML VIAL ONE (10:49)
[2017-01-09] MEDS ORDERED: Lactated Ringer's 1,000 ML IV SCH (11:11)
[2017-01-09] MEDS ORDERED: Morphine 2 mg/ml ISec IVP PRN (11:11)
--- NOTE | 2017-01-09 11:34 | PCM.SURG1 ---
Surgeon's Initial Post Op Note - Surgeon's Notes Surgeon: Dr. Pimentel Sinker Winder: Dr. Cat PGY1 Type of Anesthesia: IV Sedation Pre-Operative Diagnosis: ischiorectal abscess Operative Findings: see dictation Post-Operative Diagnosis: same Operation Performed: wound debridement of muscle, fascia, fat, skin Specimen/Specimens Removed: none Estimated Blood Loss: EBL {In ML}: 10 Drains Used: No Drains Post-Op Condition: Good Date of Surgery/Procedure: 01/09/17 Time of Surgery/Procedure: 11:00
[2017-01-09] MEDS ORDERED: Morphine 4 mg/ml ISec IVP PRN (11:36)
[2017-01-09] MEDS ORDERED: Morphine 2 mg/ml ISec ONE ×2 (11:38→11:51)
[2017-01-09] MEDS ORDERED: Morphine 2 mg/ml ISec IVP ONE ×2 (11:44→11:59)
--- NOTE | 2017-01-09 12:28 | OP ---
PROCEDURE DATE: 01/09/2017 PREOPERATIVE DIAGNOSES: A perirectal abscess and open wound. POSTOPERATIVE DIAGNOSES: A perirectal abscess and open wound. PROCEDURES PERFORMED: 1. Extensive debridement of devitalized muscle, fascia, fat and skin of the open perirectal abscess wound. 2. Pulsavac irrigation of the wound. SURGEON: Dr. Pimentel. MED SURG RN: Dr. Cat. ANESTHESIOLOGIST: Dr. Morgan. ANESTHESIA: MAC sedation and local anesthetic. SPECIMEN: Discarded necrotic tissue. INDICATION: The patient is a 76-year-old male who was admitted through the Emergency Room with a per irectal abscess which was I and D'd originally and subsequently the patient had a persistent wound wi th a large amount of necrotic tissues, deep down, all the way to the upper rectal area. The patient was now brought in for further debridement of that necrotic liquefied tissue. DESCRIPTION OF PROCEDURE: The patient was brought to the operating room and placed on the operating table in supine position. The patient was connected to EKG, blood pressure and pulse oximeter monito rs. The patient then underwent MAC and anesthesia and was prepped and draped in usual sterile fashio n in lithotomy position. Next, the wound was carefully evaluated. It appeared that it had direct tr acking all the way up to the mid to upper rectum along its wall as well as extension into the buttock and then more superficially to the posterior buttock. All those loculations were broken down and ca reful extensive debridement of the devitalized skin, fat, fascia and muscles were done. Once most of the necrotic tissues were removed, the wound was then copiously irrigated and all the bleeding point s were cauterized and the wound was packed with Betadine soaked Kerlix. The patient will possibly re quire further debridement once the wound is reevaluated in 3-4 days. The patient does have difficult y with urinating of which she is not in full control and therefore a condom catheter will be used in order to control the wound contamination. There is also difficulty of adjacent anus control in patie nt with frequent bowel movements and might be soiling that wound as well. At this point, we will pro ceed with further packing on a daily basis and as this is advancing, possibly place a wound VAC on it in order to accelerate the healing; however, fully clean and granulating wound is required in order to apply a wound VAC. Will evaluate on a daily basis. Narayan Pimentel MD cc: [id number] TT: 01/09/2017 12:27:42 jeff
--- NOTE | 2017-01-09 12:37 | PN ---
DATE: 01/09/2017 REASON FOR CONSULTATION AND FOLLOWUP: Status post rectal abscess, history of coronary artery disease , intestinal obstruction, ileus. BRIEF CLINICAL HISTORY: A 76-year-old male with a past medical history significant for coronary papo ry disease, status post PTCA in the past, history of repeat catheterization, patent stent 2013, histo ry of a stent initially 2012, recent stress test in was negative, status post permanent pacemak er. Admitted with a rectal abscess, status post drainage. Possible redo drainage today. Going for OR. The patient developed, postop course was complicated by ileus. Now, patient is tolerating food. Denies any chest pain, shortness of breath, any palpitation. PHYSICAL EXAMINATION: VITAL SIGNS: Temperature afebrile, heart rate 60, blood pressure 140/55. HEENT: PERRLA. Extraocular muscles intact. NECK: Supple. No carotid bruit, no thyromegaly. CHEST: Clear to auscultation. HEART: S1, S2 regular. ABDOMEN: Soft. EXTREMITIES: Clubbing, cyanosis negative. BLOOD WORKUP: WBC 6.4, hemoglobin 10. , hematocrit 31.3, platelet count 442. Chemistry shows so dium 137, potassium 4, chloride 110, carbon dioxide 23, anion gap of 8, BUN , creatinine 1.1. T otal protein 4. , albumin 2, albumin/globulin ratio 0.7. IMPRESSION: Protein calorie malnutrition which was not present on admission, anemia, rectal abscess, status post drainage, status post ileus, improved, history of coronary artery disease, status post p ercutaneous transluminal coronary angioplasty 2012, status post repeat catheterization, patent stent, status post permanent pacemaker. RECOMMENDATION: The patient is cleared to go for redo exploration and abscess drainage. We will fol low with you. Continue current medication. We will follow with you. Thank you, Dr. Orantes, for providing us the opportunity in taking care of the patient. Gale Mora MD cc: [id number] TT: 01/09/2017 12:37:25 Confirmation # [id number] Dictation # [id number]
[2017-01-09] MEDS: Nystatin 100,000 Units/gm Topical Pow(15 gm) TOP SCH ×2 (14:09→17:50)
[2017-01-09] MEDS: Simethicone 80 mg Chewtab PO SCH ×2 (17:48→22:15)
[2017-01-10] MEDS: ceFAZolin 1 gm in NS 1 GM/100 ML BAG IVPB SCH ×3 (05:44→22:12)
[2017-01-10 06:31] LABS: ADD MANUAL DIFF? NO
[2017-01-10 06:42] LABS: BASO # 0.02 K/mm3 (0.0-2.0); BASO % 0.3 % (0.0-3.0); EOS # 0.1 (0.0-0.7); EOS % 1.8 % (1.5-5.0); GRAN # 4.43 (1.4-6.5); GRAN % 67.3 % (50.0-68.0); HEMATOCRIT 31.4 % (42.0-52.0); LYMPH # 1.5 (1.2-3.4); MEAN CELL VOLUME 90.2 fL (80.0-105.0); MEAN CORPUSCULAR HEMOGLOBIN 30.5 pg (25.0-35.0); MEAN CORPUSCULAR HGB CONC 33.8 g/dl (31.0-37.0); MEAN PLATELET VOLUME 10.1 fl (7.0-11.0); MONO # 0.6 (0.1-0.6); MONO % 8.6 % (1.0-6.0); PLATELET COUNT 442 10^3/uL (120.0-450.0); RED CELL DISTRIBUTION WIDTH 14.1 % (11.5-14.5); WHITE BLOOD COUNT 6.6 10^3/ul (4.5-11.0)
[2017-01-10 06:56] LABS: ALB/GLOB RATIO 0.7 (1.1-1.8); ALKALINE PHOSPHATASE 47 U/L (38-133); ALT/SGPT 35 U/L (7-56); AST/SGOT 38 U/L (15-59); BILIRUBIN,TOTAL 0.6 mg/dL (0.2-1.3); BLOOD UREA NITROGEN 12 mg/dL (7-21); CALCIUM 7.7 mg/dL (8.4-10.5); CARBON DIOXIDE 23 mmol/L (21-33); CHLORIDE 106 mmol/L (98-107); GFR AFRICAN-AMERICAN > 60; GLUCOSE,RANDOM 87 mg/dL (70-110); MAGNESIUM 1.7 mg/dL (1.7-2.2); PHOSPHOROUS 3.1 mg/dL (2.5-4.5); SODIUM 134 mmol/L (132-148); TOTAL PROTEIN 5.1 g/dL (5.8-8.3)
--- NOTE | 2017-01-10 08:46 | CP.PCM.PN ---
Subjective - Date & Time of Evaluation Date of Evaluation: 01/10/17 Time of Evaluation: 07:10 - Subjective Subjective: General Surgery Dr. Pimentel Pt S&E @bedside. NAEO. went for OR debridement yesterday, tolerated the procedure well. feels better this AM. still pain when sitting on commode or in chair. reports less bloating. tolerating soft diet. Objective - Vital Signs/Intake and Output Vital Signs (last 24 hours): Temp Pulse Resp BP Pulse Ox 98.4 F 65 20 153/57 H 96 01/10/17 06:00 01/10/17 06:00 01/10/17 06:00 01/10/17 06:00 01/10/17 06:00 Intake and Output: 01/10/17 01/10/17 06:59 18:59 Intake Total 200 Output Total 250 Balance -50 - Medications Medications: Current Medications Acetaminophen (Tylenol 650mg/20.3ml Solution Ud) 650 mg GT Q4H PRN PRN Reason: Fever >100.4 F Albuterol/Ipratropium (Duoneb 3 Mg/0.5 Mg (3 Ml) Ud) 3 ml IH Q2H PRN PRN Reason: Shortness of Breath Last Admin: 12/29/16 23:47 Dose: 3 ml Alprazolam (Xanax) 0.5 mg PO TID PRN; Protocol PRN Reason: Anxiety Aspirin (Aspirin Chewable) 81 mg PO DAILY [facility] Last Admin: 01/09/17 17:48 Dose: 81 mg Diphenhydramine HCl (Benadryl) 25 mg PO HS PRN PRN Reason: Insomnia Last Admin: 01/09/17 01:37 Dose: 25 mg Heparin Sodium (Porcine) (Heparin) 5,000 units SC Q8 [facility] Last Admin: 01/10/17 05:44 Dose: 5,000 units Hydralazine HCl (Apresoline) 10 mg IVP Q6 PRN PRN Reason: FOR SBP>160 and Distolic>100 Hydrochlorothiazide (Hydrodiuril) 25 mg GT DAILY [facility] Cefazolin Sodium (Ancef 1gm In Ns) 1 gm in 100 mls @ 100 mls/hr IVPB Q8 [facility] PRN Reason: Protocol Last Admin: 01/10/17 05:44 Dose: 100 mls/hr Ketorolac Tromethamine (Toradol) 30 mg IVP Q6 PRN PRN Reason: Pain, moderate (4-7) Last Admin: 01/07/17 21:46 Dose: 30 mg Losartan Potassium (Cozaar) 100 mg GT DAILY [facility] Last Admin: 01/09/17 17:48 Dose: 100 mg Morphine Sulfate (Morphine) 4 mg IVP Q4H PRN PRN Reason: Pain, severe (8-10) Nystatin (Nystop Topical Powder) 0 gm TOP TID [facility] Last Admin: 01/09/17 17:50 Dose: 3 appl Ondansetron HCl (Zofran Inj) 4 mg IVP Q4H PRN PRN Reason: Nausea/Vomiting Last Admin: 01/06/17 21:58 Dose: 4 mg Pantoprazole Sodium (Protonix Inj) 40 mg IVP Q12 [facility] Last Admin: 01/09/17 22:15 Dose: 40 mg Povidone Iodine (Betadine 10% Topical Soln) 10 ml TOP QID PRN PRN Reason: Soiled packing Simethicone (Mylicon Chew Tab) 80 mg PO [facility] Last Admin: 01/09/17 22:15 Dose: 80 mg Tamsulosin HCl (Flomax) 0.4 mg PO DAILY [facility] Last Admin: 01/09/17 17:48 Dose: 0.4 mg - Labs Labs: 01/10/17 05:50 01/10/17 05:50 PT 13.3 Seconds (9.9-11.8) H 12/29/16 07:15 INR 1.23 (0.93-1.08) H 12/29/16 07:15 APTT 34.9 Seconds (23.7-30.8) H 12/27/16 19:00 - Constitutional Appears: Non-toxic, No Acute Distress - Head Exam Head Exam: NORMAL INSPECTION - Eye Exam Eye Exam: Normal appearance - ENT Exam ENT Exam: Mucous Membranes Moist - Respiratory Exam Respiratory Exam: NORMAL BREATHING PATTERN. absent: Accessory Muscle Use, Respiratory Distress - Cardiovascular Exam Cardiovascular Exam: REGULAR RHYTHM. absent: Bradycardia, Tachycardia - GI/Abdominal Exam GI & Abdominal Exam: Distended (minimal), Soft. absent: Tenderness - Rectal Exam Additional comments: dressing soiled - Extremities Exam Extremities Exam: Normal Inspection - Neurological Exam Neurological Exam: Alert, Awake, Oriented x3 - Psychiatric Exam Psychiatric exam: Normal Affect, Normal Mood - Skin Skin Exam: Dry, Normal Color, Warm Assessment and Plan - Assessment and Plan (Free Text) Assessment: 76 y/o M w/ ischiorectal abscess POD#1 s/p wound debridement - BID packing changes by surgery team - dressing changes PRN by nursing - soft, HHD diet - pain management - encourage OOB to chair/Amb/IS use - GI/DVT PPx Pt discussed w/ Dr. Loren Cat DO PGY1
[2017-01-10] MEDS: Simethicone 80 mg Chewtab PO SCH ×4 (09:02→22:12)
--- NOTE | 2017-01-10 09:48 | CP.PCM.PN ---
<Jeni Moorela - Last Filed: 01/10/17 18:02> Subjective - Date & Time of Evaluation Date of Evaluation: 01/10/17 Time of Evaluation: 07:25 - Subjective Subjective: Medicine progress note for Dr Sharpe and Dr Orantes service. Patient had wound debridement yesterday. Patient's abdomen was less distended, and soft, patient was started on regular hh diet. No acute events overnight. Denies cp, sob, headache, dizziness, n/v/d. This afternoon, when patient got up to walk, he started bleeding from the incision site. Patient's vitals signs were normal, SBP in the 160s, EKG with pacing rhythm. HR of 74. Repeat cbc with hgb of 11. Objective - Vital Signs/Intake and Output Vital Signs (last 24 hours): Temp Pulse Resp BP Pulse Ox 98.4 F 65 20 153/57 H 96 01/10/17 06:00 01/10/17 06:00 01/10/17 06:00 01/10/17 06:00 01/10/17 06:00 Intake and Output: 01/10/17 01/10/17 06:59 18:59 Intake Total 200 Output Total 250 Balance -50 - Medications Medications: Current Medications Acetaminophen (Tylenol 650mg/20.3ml Solution Ud) 650 mg GT Q4H PRN PRN Reason: Fever >100.4 F Albuterol/Ipratropium (Duoneb 3 Mg/0.5 Mg (3 Ml) Ud) 3 ml IH Q2H PRN PRN Reason: Shortness of Breath Last Admin: 12/29/16 23:47 Dose: 3 ml Alprazolam (Xanax) 0.5 mg PO TID PRN; Protocol PRN Reason: Anxiety Aspirin (Aspirin Chewable) 81 mg PO DAILY [facility] Last Admin: 01/09/17 17:48 Dose: 81 mg Diphenhydramine HCl (Benadryl) 25 mg PO HS PRN PRN Reason: Insomnia Last Admin: 01/09/17 01:37 Dose: 25 mg Heparin Sodium (Porcine) (Heparin) 5,000 units SC Q8 [facility] Last Admin: 01/10/17 05:44 Dose: 5,000 units Hydralazine HCl (Apresoline) 10 mg IVP Q6 PRN PRN Reason: FOR SBP>160 and Distolic>100 Hydrochlorothiazide (Hydrodiuril) 25 mg GT DAILY [facility] Hydromorphone HCl (Dilaudid) 1 mg IVP Q6 PRN PRN Reason: Pain, moderate (4-7) Cefazolin Sodium (Ancef 1gm In Ns) 1 gm in 100 mls @ 100 mls/hr IVPB Q8 [facility] PRN Reason: Protocol Last Admin: 01/10/17 05:44 Dose: 100 mls/hr Ketorolac Tromethamine (Toradol) 30 mg IVP Q6 PRN PRN Reason: Pain, moderate (4-7) Last Admin: 01/10/17 08:54 Dose: 30 mg Losartan Potassium (Cozaar) 100 mg GT DAILY [facility] Last Admin: 01/09/17 17:48 Dose: 100 mg Nystatin (Nystop Topical Powder) 0 gm TOP TID [facility] Last Admin: 01/09/17 17:50 Dose: 3 appl Ondansetron HCl (Zofran Inj) 4 mg IVP Q4H PRN PRN Reason: Nausea/Vomiting Last Admin: 01/06/17 21:58 Dose: 4 mg Pantoprazole Sodium (Protonix Inj) 40 mg IVP Q12 [facility] Last Admin: 01/09/17 22:15 Dose: 40 mg Povidone Iodine (Betadine 10% Topical Soln) 10 ml TOP QID PRN PRN Reason: Soiled packing Simethicone (Mylicon Chew Tab) 80 mg PO HS [facility] Last Admin: 01/10/17 09:02 Dose: 80 mg Tamsulosin HCl (Flomax) 0.4 mg PO DAILY [facility] Last Admin: 01/09/17 17:48 Dose: 0.4 mg - Labs Labs: 01/10/17 05:50 01/10/17 05:50 PT 13.3 Seconds (9.9-11.8) H 12/29/16 07:15 INR 1.23 (0.93-1.08) H 12/29/16 07:15 APTT 34.9 Seconds (23.7-30.8) H 12/27/16 19:00 - Constitutional Appears: No Acute Distress - Head Exam Head Exam: ATRAUMATIC, NORMAL INSPECTION, NORMOCEPHALIC - Eye Exam Eye Exam: Normal appearance, PERRL. absent: Scleral icterus - ENT Exam ENT Exam: Mucous Membranes Moist - Neck Exam Neck Exam: Normal Inspection - Respiratory Exam Respiratory Exam: Clear to Ausculation Bilateral, NORMAL BREATHING PATTERN. absent: Rales, Rhonchi, Wheezes, Respiratory Distress, Stridor - Cardiovascular Exam Cardiovascular Exam: REGULAR RHYTHM, RRR, +S1, +S2. absent: Gallop, Irregular Rhythm, JVD, Murmur - GI/Abdominal Exam GI & Abdominal Exam: Soft, Normal Bowel Sounds. absent: Distended (improved.), Firm, Guarding, Rigid, Tenderness - Exam Additional comments: Rectal region with erythema and edema, bleeding from the incision site. - Extremities Exam Extremities Exam: Pedal Edema (+2) - Back Exam Back Exam: absent: tenderness Additional comments: + erythema in the sacral region. 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 Patient developed pneumonia during the course of hospitalization, which has resolved. Patient also developed mechanical SOB, with abdominal distention ( resolved). Patient is s/p wound debridement day 1, and was bleeding from the incision site. Plan: 1) Perirectal abscess s/p I&D day 12 and wound debridement, currently bleeding. - Wound care as per surgery - abscess grew ecoli and strep intermidius, s/p antibiotics. - control bleeding - hold heparin sc for now. 2) Abdominal distension 2nd to sbo -Resolving - patient is now able to tolerate po - stool is more formed. 3) HAP- resolved - continue duoneb prn - on ancef. 4) Sepsis 2nd to Perirectal abscess s/p surgery - - sepsis resolved - no growth on bcx - on ancef - id following 5) Hyppomagnesemia-stable. 6) DENISE - resolved - will continue to monitor. 7) Transaminitis-resolved 8) CAD w/ stents - continue ASA, hctz and cozaar 9) Normocytic anemia- - repeat CBC 2nd to hemorrhage from the surgical incision site. 10) DVT and GI prophylaxis: protonix and scds. resume heparin once bleeding is controlled. 11) Dispo-pending Patient seen, examined, discussed with Dr Sharpe. <Woody Sharpe - Last Filed: 01/13/17 16:30> Objective - Vital Signs/Intake and Output Vital Signs (last 24 hours): Temp Pulse Resp BP Pulse Ox 98.7 F 61 19 64/57 L 96 01/13/17 12:00 01/13/17 12:00 01/13/17 12:00 01/13/17 12:00 01/13/17 05:51 Intake and Output: 01/13/17 01/13/17 06:59 18:59 Intake Total 735 400 Output Total 500 Balance 235 400 - Medications Medications: Current Medications Acetaminophen (Tylenol 650mg/20.3ml Solution Ud) 650 mg GT Q4H PRN PRN Reason: Fever >100.4 F Albuterol/Ipratropium (Duoneb 3 Mg/0.5 Mg (3 Ml) Ud) 3 ml IH Q2H PRN PRN Reason: Shortness of Breath Last Admin: 01/13/17 08:32 Dose: 3 ml Alprazolam (Xanax) 0.5 mg PO TID PRN; Protocol PRN Reason: Anxiety Aspirin (Aspirin Chewable) 81 mg PO DAILY [facility] Last Admin: 01/13/17 10:19 Dose: 81 mg Diphenhydramine HCl (Benadryl) 25 mg PO HS PRN PRN Reason: Insomnia Last Admin: 01/11/17 00:32 Dose: 25 mg Ferrous Sulfate (Feosol) 324 mg PO TID [facility] Last Admin: 01/13/17 13:52 Dose: 324 mg Heparin Sodium (Porcine) (Heparin) 5,000 units SC Q8 [facility] Last Admin: 01/10/17 05:44 Dose: 5,000 units Hydralazine HCl (Apresoline) 10 mg IVP Q6 PRN PRN Reason: FOR SBP>160 and Distolic>100 Hydrochlorothiazide (Hydrodiuril) 25 mg GT DAILY [facility] Last Admin: 01/13/17 12:31 Dose: 25 mg Hydromorphone HCl (Dilaudid) 1 mg IVP Q6 PRN PRN Reason: Pain, moderate (4-7) Last Admin: 01/13/17 09:22 Dose: 1 mg Cefazolin Sodium (Ancef 1gm In Ns) 1 gm in 100 mls @ 100 mls/hr IVPB Q8 [facility] PRN Reason: Protocol Last Admin: 01/13/17 13:50 Dose: 100 mls/hr Metronidazole (Flagyl) 500 mg in 100 mls @ 100 mls/hr IVPB Q8 [facility] PRN Reason: Protocol Last Admin: 01/13/17 13:51 Dose: 100 mls/hr Ketorolac Tromethamine (Toradol) 30 mg IVP Q6 PRN PRN Reason: Pain, moderate (4-7) Last Admin: 01/13/17 13:49 Dose: 30 mg Losartan Potassium (Cozaar) 100 mg GT DAILY [facility] Last Admin: 01/13/17 10:19 Dose: 100 mg Multivitamins (Thera Tab) 1 tab PO DAILY [facility] Last Admin: 01/13/17 10:19 Dose: 1 tab Nystatin (Nystop Topical Powder) 0 gm TOP TID [facility] Last Admin: 01/13/17 13:52 Dose: 3 appl Ondansetron HCl (Zofran Inj) 4 mg IVP Q4H PRN PRN Reason: Nausea/Vomiting Last Admin: 01/06/17 21:58 Dose: 4 mg Pantoprazole Sodium (Protonix Inj) 40 mg IVP Q12 [facility] Last Admin: 01/13/17 10:19 Dose: 40 mg Povidone Iodine (Betadine 10% Topical Soln) 10 ml TOP QID PRN PRN Reason: Soiled packing Simethicone (Mylicon Chew Tab) 80 mg PO [facility] Last Admin: 01/13/17 12:34 Dose: 80 mg Tamsulosin HCl (Flomax) 0.4 mg PO DAILY [facility] Last Admin: 01/13/17 10:18 Dose: 0.4 mg - Labs Labs: 01/13/17 12:20 01/13/17 06:26 PT 12.6 Seconds (9.9-11.8) H 01/10/17 12:30 INR 1.17 (0.93-1.08) H 01/10/17 12:30 APTT 33.4 Seconds (23.7-30.8) H 01/10/17 12:30 Attending/Attestation - Attestation I have personally seen and examined this patient.: Yes I have fully participated in the care of the patient.: Yes I have reviewed all pertinent clinical information, including history, physical exam and plan: Yes Notes (Text): 01/13/17 16:30 Medical record note made by the resident after discussion with my direction and input after the patient was personally seen and examined by me. I have reviewed the chart and agree that the record accurately reflects by personal performance of the history, physical exam, data review, and medical decision-making, in the course for the patient. I have also personally directed the plan of care.
--- NOTE | 2017-01-10 10:26 | PN ---
DATE: 01/10/2017 SUBJECTIVE: The patient is lying in bed, comfortable. He is status post debridement of an ischiorec trixie abscess. He has not had any vomiting. He is tolerating solid foods. Diarrhea is less. PHYSICAL EXAMINATION: VITAL SIGNS: Reveal temperature of 98.4, blood pressure 153/57, heart rate 65. ABDOMEN: Softly distended. There are decreased bowel sounds. There is no tenderness. LABORATORY DATA: Reveal white blood cell count 6.6, hemoglobin 10.6. IMPRESSION: A 76-year-old male with a large ischiorectal abscess, status post incision and drainage followed by further debridement of necrotic tissue with partial small bowel obstruction which is impr oving. RECOMMENDATIONS: 1. Continue local wound care of his ischiorectal abscess by the surgical team. 2. Continue close observation of his partial small bowel obstruction. Bowen Mota MD cc: [phone] TT: 01/10/2017 10:25:51 Confirmation # [id number] Dictation # [id number] mn
[2017-01-10] MEDS: Nystatin 100,000 Units/gm Topical Pow(15 gm) TOP SCH ×3 (11:02→18:50)
--- NOTE | 2017-01-10 12:51 | CP.PCM.PN ---
<Abdi Arizmendi - Last Filed: 01/10/17 12:55> Subjective - Date & Time of Evaluation Date of Evaluation: 01/10/17 Time of Evaluation: 12:45 - Subjective Subjective: Rapid Response Progress note. Dr. Villarreal Responded STAT to rapid response called overhead. Patient in bed comfortable, in no acute distress. Nursing staff states that they noticed bleeding from recent perirectal abscess I&D done yesterday by Dr. Pimentel. Patient denies any complaints apart from bleeding. Denies any chest pain, no shortness of breath. No N/V/D. No Abd pain. VS: Afebrile BP-175/72 HR- 61 Objective - Vital Signs/Intake and Output Vital Signs (last 24 hours): Temp Pulse Resp BP Pulse Ox 98.4 F 65 20 153/57 H 96 01/10/17 06:00 01/10/17 06:00 01/10/17 06:00 01/10/17 06:00 01/10/17 06:00 Intake and Output: 01/10/17 01/10/17 06:59 18:59 Intake Total 200 Output Total 250 Balance -50 - Medications Medications: Current Medications Acetaminophen (Tylenol 650mg/20.3ml Solution Ud) 650 mg GT Q4H PRN PRN Reason: Fever >100.4 F Albuterol/Ipratropium (Duoneb 3 Mg/0.5 Mg (3 Ml) Ud) 3 ml IH Q2H PRN PRN Reason: Shortness of Breath Last Admin: 12/29/16 23:47 Dose: 3 ml Alprazolam (Xanax) 0.5 mg PO TID PRN; Protocol PRN Reason: Anxiety Aspirin (Aspirin Chewable) 81 mg PO DAILY [facility] Last Admin: 01/10/17 11:01 Dose: 81 mg Diphenhydramine HCl (Benadryl) 25 mg PO HS PRN PRN Reason: Insomnia Last Admin: 01/09/17 01:37 Dose: 25 mg Heparin Sodium (Porcine) (Heparin) 5,000 units SC Q8 [facility] Last Admin: 01/10/17 05:44 Dose: 5,000 units Hydralazine HCl (Apresoline) 10 mg IVP Q6 PRN PRN Reason: FOR SBP>160 and Distolic>100 Hydrochlorothiazide (Hydrodiuril) 25 mg GT DAILY [facility] Last Admin: 01/10/17 11:01 Dose: 25 mg Hydromorphone HCl (Dilaudid) 1 mg IVP Q6 PRN PRN Reason: Pain, moderate (4-7) Cefazolin Sodium (Ancef 1gm In Ns) 1 gm in 100 mls @ 100 mls/hr IVPB Q8 [facility] PRN Reason: Protocol Last Admin: 01/10/17 05:44 Dose: 100 mls/hr Ketorolac Tromethamine (Toradol) 30 mg IVP Q6 PRN PRN Reason: Pain, moderate (4-7) Last Admin: 01/10/17 08:54 Dose: 30 mg Losartan Potassium (Cozaar) 100 mg GT DAILY [facility] Last Admin: 01/10/17 11:01 Dose: 100 mg Nystatin (Nystop Topical Powder) 0 gm TOP TID [facility] Last Admin: 01/10/17 11:02 Dose: 1 appl Ondansetron HCl (Zofran Inj) 4 mg IVP Q4H PRN PRN Reason: Nausea/Vomiting Last Admin: 01/06/17 21:58 Dose: 4 mg Pantoprazole Sodium (Protonix Inj) 40 mg IVP Q12 [facility] Last Admin: 01/10/17 11:02 Dose: 40 mg Povidone Iodine (Betadine 10% Topical Soln) 10 ml TOP QID PRN PRN Reason: Soiled packing Simethicone (Mylicon Chew Tab) 80 mg PO [facility] Last Admin: 01/10/17 09:02 Dose: 80 mg Tamsulosin HCl (Flomax) 0.4 mg PO DAILY [facility] Last Admin: 01/10/17 11:01 Dose: 0.4 mg - Labs Labs: 01/10/17 05:50 01/10/17 05:50 PT 13.3 Seconds (9.9-11.8) H 12/29/16 07:15 INR 1.23 (0.93-1.08) H 12/29/16 07:15 APTT 34.9 Seconds (23.7-30.8) H 12/27/16 19:00 - Constitutional Appears: Well, No Acute Distress - Head Exam Head Exam: ATRAUMATIC, NORMAL INSPECTION, NORMOCEPHALIC - Eye Exam Eye Exam: EOMI, Normal appearance, PERRL. absent: Scleral icterus - ENT Exam ENT Exam: Mucous Membranes Moist - Neck Exam Neck Exam: Full ROM - Rectal Exam Additional comments: Left butt cheek wound - with active ozzing blood noticed. Bandange cleaned and redressed. - Extremities Exam Extremities Exam: Normal Inspection. absent: Calf Tenderness - Back Exam Back Exam: NORMAL INSPECTION - Neurological Exam Neurological Exam: Alert, Awake, Oriented x3 - Psychiatric Exam Psychiatric exam: Normal Affect, Normal Mood - Skin Skin Exam: Normal Color, Warm Additional comments: left buttock ozzing bleeding from wound. Assessment and Plan - Assessment and Plan (Free Text) Assessment: 76yo M with left buttock perirectal abscess repeat debridement done yesterday by Dr. Pimentel. Rapid called for bleeding from rectal wound. Plan: Stat CBC, CMP, PT, PTT, Type and screen EKG - Ventricular paced at 74. No acute ST changes -Hold ASA 81 and Heparin due acute bleeding. Attending notified. Surgery team notified: to come to bedside for evaluation and obtain hemostasis. Surgery team at bedside currently. More recs to follow while we monitor patient clinically. <Ledy Villarreal - Last Filed: 01/10/17 17:22> Objective - Vital Signs/Intake and Output Vital Signs (last 24 hours): Temp Pulse Resp BP Pulse Ox 97.7 F 78 20 160/80 H 96 01/10/17 12:00 01/10/17 14:02 01/10/17 12:00 01/10/17 12:00 01/10/17 06:00 Intake and Output: 01/10/17 01/10/17 06:59 18:59 Intake Total 200 Output Total 250 Balance -50 - Medications Medications: Current Medications Acetaminophen (Tylenol 650mg/20.3ml Solution Ud) 650 mg GT Q4H PRN PRN Reason: Fever >100.4 F Albuterol/Ipratropium (Duoneb 3 Mg/0.5 Mg (3 Ml) Ud) 3 ml IH Q2H PRN PRN Reason: Shortness of Breath Last Admin: 12/29/16 23:47 Dose: 3 ml Alprazolam (Xanax) 0.5 mg PO TID PRN; Protocol PRN Reason: Anxiety Aspirin (Aspirin Chewable) 81 mg PO DAILY [facility] Last Admin: 01/10/17 11:01 Dose: 81 mg Diphenhydramine HCl (Benadryl) 25 mg PO HS PRN PRN Reason: Insomnia Last Admin: 01/09/17 01:37 Dose: 25 mg Heparin Sodium (Porcine) (Heparin) 5,000 units SC Q8 [facility] Last Admin: 01/10/17 05:44 Dose: 5,000 units Hydralazine HCl (Apresoline) 10 mg IVP Q6 PRN PRN Reason: FOR SBP>160 and Distolic>100 Hydrochlorothiazide (Hydrodiuril) 25 mg GT DAILY [facility] Last Admin: 01/10/17 11:01 Dose: 25 mg Hydromorphone HCl (Dilaudid) 1 mg IVP Q6 PRN PRN Reason: Pain, moderate (4-7) Cefazolin Sodium (Ancef 1gm In Ns) 1 gm in 100 mls @ 100 mls/hr IVPB Q8 [facility] PRN Reason: Protocol Last Admin: 01/10/17 14:11 Dose: 100 mls/hr Ketorolac Tromethamine (Toradol) 30 mg IVP Q6 PRN PRN Reason: Pain, moderate (4-7) Last Admin: 01/10/17 08:54 Dose: 30 mg Losartan Potassium (Cozaar) 100 mg GT DAILY [facility] Last Admin: 01/10/17 11:01 Dose: 100 mg Nystatin (Nystop Topical Powder) 0 gm TOP TID [facility] Last Admin: 01/10/17 14:17 Dose: 1 appl Ondansetron HCl (Zofran Inj) 4 mg IVP Q4H PRN PRN Reason: Nausea/Vomiting Last Admin: 01/06/17 21:58 Dose: 4 mg Pantoprazole Sodium (Protonix Inj) 40 mg IVP Q12 [facility] Last Admin: 01/10/17 11:02 Dose: 40 mg Povidone Iodine (Betadine 10% Topical Soln) 10 ml TOP QID PRN PRN Reason: Soiled packing Simethicone (Mylicon Chew Tab) 80 mg PO HS [facility] Last Admin: 01/10/17 14:18 Dose: 80 mg Tamsulosin HCl (Flomax) 0.4 mg PO DAILY [facility] Last Admin: 01/10/17 11:01 Dose: 0.4 mg - Labs Labs: 01/10/17 12:30 01/10/17 12:30 PT 12.6 Seconds (9.9-11.8) H 01/10/17 12:30 INR 1.17 (0.93-1.08) H 01/10/17 12:30 APTT 33.4 Seconds (23.7-30.8) H 01/10/17 12:30 Attending/Attestation - Attestation I have personally seen and examined this patient.: Yes I have fully participated in the care of the patient.: Yes I have reviewed all pertinent clinical information, including history, physical exam and plan: Yes Notes (Text): 01/10/17 17:20 Patient's VS included RR of 20/min
[2017-01-10 13:11] LABS: ALB/GLOB RATIO 0.7 (1.1-1.8); ALKALINE PHOSPHATASE 57 U/L (38-133); ALT/SGPT 39 U/L (7-56); AST/SGOT 42 U/L (15-59); BILIRUBIN,TOTAL 0.7 mg/dL (0.2-1.3); BLOOD UREA NITROGEN 12 mg/dL (7-21); CARBON DIOXIDE 24 mmol/L (21-33); CHLORIDE 105 mmol/L (98-107); GFR AFRICAN-AMERICAN > 60; GLUCOSE,RANDOM 104 mg/dL (70-110); POTASSIUM 4.1 mmol/L (3.6-5.0); SODIUM 134 mmol/L (132-148); TOTAL PROTEIN 5.5 g/dL (5.8-8.3)
[2017-01-10 13:12] LABS: INR 1.17 (0.93-1.08); PARTIAL THROMBOPLASTIN TIME 33.4 Seconds (23.7-30.8)
[2017-01-10 13:25] LABS: HEMATOCRIT 32.7 % (42.0-52.0); MEAN CELL VOLUME 90.3 fL (80.0-105.0); MEAN CORPUSCULAR HEMOGLOBIN 30.4 pg (25.0-35.0); MEAN CORPUSCULAR HGB CONC 33.6 g/dl (31.0-37.0); MEAN PLATELET VOLUME 10.2 fl (7.0-11.0); RED CELL DISTRIBUTION WIDTH 14.3 % (11.5-14.5); WHITE BLOOD COUNT 7.5 10^3/ul (4.5-11.0)
--- NOTE | 2017-01-10 13:36 | CP.PCM.PN ---
Objective - Vital Signs/Intake and Output Vital Signs (last 24 hours): Temp Pulse Resp BP Pulse Ox 97.7 F 65 20 160/80 H 96 01/10/17 12:00 01/10/17 06:00 01/10/17 12:00 01/10/17 12:00 01/10/17 06:00 Intake and Output: 01/10/17 01/10/17 06:59 18:59 Intake Total 200 Output Total 250 Balance -50 - Medications Medications: Current Medications Acetaminophen (Tylenol 650mg/20.3ml Solution Ud) 650 mg GT Q4H PRN PRN Reason: Fever >100.4 F Albuterol/Ipratropium (Duoneb 3 Mg/0.5 Mg (3 Ml) Ud) 3 ml IH Q2H PRN PRN Reason: Shortness of Breath Last Admin: 12/29/16 23:47 Dose: 3 ml Alprazolam (Xanax) 0.5 mg PO TID PRN; Protocol PRN Reason: Anxiety Aspirin (Aspirin Chewable) [address] [facility] Last Admin: 01/10/17 11:01 Dose: 81 mg Diphenhydramine HCl (Benadryl) 25 mg PO HS PRN PRN Reason: Insomnia Last Admin: 01/09/17 01:37 Dose: 25 mg Heparin Sodium (Porcine) (Heparin) 5,[address] [facility] Last Admin: 01/10/17 05:44 Dose: 5,000 units Hydralazine HCl (Apresoline) 10 mg IVP Q6 PRN PRN Reason: FOR SBP>160 and Distolic>100 Hydrochlorothiazide (Hydrodiuril) [address] [facility] Last Admin: 01/10/17 11:01 Dose: 25 mg Hydromorphone HCl (Dilaudid) 1 mg IVP Q6 PRN PRN Reason: Pain, moderate (4-7) Cefazolin Sodium (Ancef 1gm In Ns) 1 gm in 100 mls @ 100 mls/hr IVPB Q8 [facility] PRN Reason: Protocol Last Admin: 01/10/17 05:44 Dose: 100 mls/hr Ketorolac Tromethamine (Toradol) 30 mg IVP Q6 PRN PRN Reason: Pain, moderate (4-7) Last Admin: 01/10/17 08:54 Dose: 30 mg Losartan Potassium (Cozaar) [address] [facility] Last Admin: 01/10/17 11:01 Dose: 100 mg Nystatin (Nystop Topical Powder) [address] [facility] Last Admin: 01/10/17 11:02 Dose: 1 appl Ondansetron HCl (Zofran Inj) 4 mg IVP Q4H PRN PRN Reason: Nausea/Vomiting Last Admin: 01/06/17 21:58 Dose: 4 mg Pantoprazole Sodium (Protonix Inj) [address] [facility] Last Admin: 01/10/17 11:02 Dose: 40 mg Povidone Iodine (Betadine 10% Topical Soln) 10 ml TOP QID PRN PRN Reason: Soiled packing Simethicone (Mylicon Chew Tab) 80 mg PO [facility] Last Admin: 01/10/17 09:02 Dose: 80 mg Tamsulosin HCl (Flomax) 0.[address] [facility] Last Admin: 01/10/17 11:01 Dose: 0.4 mg - Labs Labs: 01/10/17 12:30 01/10/17 12:30 PT 12.6 Seconds (9.9-11.8) H 01/10/17 12:30 INR 1.17 (0.93-1.08) H 01/10/17 12:30 APTT 33.4 Seconds (23.7-30.8) H 01/10/17 12:30
--- NOTE | 2017-01-10 14:14 | CP.PCM.PN ---
Subjective - Date & Time of Evaluation Date of Evaluation: 01/10/17 Time of Evaluation: 12:35 - Subjective Subjective: General Surgery Dr. Pimentel [employer]: nursing concerned for bleeding. Packing was changed at bedside around 9am and some oozing was noted. Wound was packed and pressure dressing was applied. Surgery was paged for saturated dressings. Orders in place for dressing changes as needed. Surgery re-paged while in with another patient. Paged was answered, team was advised of continued bleeding and stated that they would be down shortly to see the patient. [employer] was called overhead before team was able to see pt. Team reported to pt bedside. Dr. Pimentel was called. All vitals remained stable. Bleeding was controlled w/ Surgicell obtained from central supply and gauze pressure dressings. Objective - Vital Signs/Intake and Output Vital Signs (last 24 hours): Temp Pulse Resp BP Pulse Ox 97.7 F 65 20 160/80 H 96 01/10/17 12:00 01/10/17 06:00 01/10/17 12:00 01/10/17 12:00 01/10/17 06:00 Intake and Output: 01/10/17 01/10/17 06:59 18:59 Intake Total 200 Output Total 250 Balance -50 - Medications Medications: Current Medications Acetaminophen (Tylenol 650mg/20.3ml Solution Ud) 650 mg GT Q4H PRN PRN Reason: Fever >100.4 F Albuterol/Ipratropium (Duoneb 3 Mg/0.5 Mg (3 Ml) Ud) 3 ml IH Q2H PRN PRN Reason: Shortness of Breath Last Admin: 12/29/16 23:47 Dose: 3 ml Alprazolam (Xanax) 0.5 mg PO TID PRN; Protocol PRN Reason: Anxiety Aspirin (Aspirin Chewable) 81 mg PO DAILY [facility] Last Admin: 01/10/17 11:01 Dose: 81 mg Diphenhydramine HCl (Benadryl) 25 mg PO HS PRN PRN Reason: Insomnia Last Admin: 01/09/17 01:37 Dose: 25 mg Heparin Sodium (Porcine) (Heparin) 5,000 units SC Q8 [facility] Last Admin: 01/10/17 05:44 Dose: 5,000 units Hydralazine HCl (Apresoline) 10 mg IVP Q6 PRN PRN Reason: FOR SBP>160 and Distolic>100 Hydrochlorothiazide (Hydrodiuril) 25 mg GT DAILY [facility] Last Admin: 01/10/17 11:01 Dose: 25 mg Hydromorphone HCl (Dilaudid) 1 mg IVP Q6 PRN PRN Reason: Pain, moderate (4-7) Cefazolin Sodium (Ancef 1gm In Ns) 1 gm in 100 mls @ 100 mls/hr IVPB Q8 [facility] PRN Reason: Protocol Last Admin: 01/10/17 05:44 Dose: 100 mls/hr Ketorolac Tromethamine (Toradol) 30 mg IVP Q6 PRN PRN Reason: Pain, moderate (4-7) Last Admin: 01/10/17 08:54 Dose: 30 mg Losartan Potassium (Cozaar) 100 mg GT DAILY [facility] Last Admin: 01/10/17 11:01 Dose: 100 mg Nystatin (Nystop Topical Powder) 0 gm TOP TID [facility] Last Admin: 01/10/17 11:02 Dose: 1 appl Ondansetron HCl (Zofran Inj) 4 mg IVP Q4H PRN PRN Reason: Nausea/Vomiting Last Admin: 01/06/17 21:58 Dose: 4 mg Pantoprazole Sodium (Protonix Inj) 40 mg IVP Q12 [facility] Last Admin: 01/10/17 11:02 Dose: 40 mg Povidone Iodine (Betadine 10% Topical Soln) 10 ml TOP QID PRN PRN Reason: Soiled packing Simethicone (Mylicon Chew Tab) 80 mg PO [facility] Last Admin: 01/10/17 09:02 Dose: 80 mg Tamsulosin HCl (Flomax) 0.4 mg PO DAILY [facility] Last Admin: 01/10/17 11:01 Dose: 0.4 mg - Labs Labs: 01/10/17 12:30 01/10/17 12:30 PT 12.6 Seconds (9.9-11.8) H 01/10/17 12:30 INR 1.17 (0.93-1.08) H 01/10/17 12:30 APTT 33.4 Seconds (23.7-30.8) H 01/10/17 12:30 - Constitutional Appears: Non-toxic, No Acute Distress - Head Exam Head Exam: NORMAL INSPECTION - Eye Exam Eye Exam: Normal appearance - ENT Exam ENT Exam: Mucous Membranes Moist - Respiratory Exam Respiratory Exam: NORMAL BREATHING PATTERN. absent: Accessory Muscle Use, Respiratory Distress - Cardiovascular Exam Cardiovascular Exam: Tachycardia. absent: Bradycardia, REGULAR RHYTHM - GI/Abdominal Exam GI & Abdominal Exam: Soft. absent: Distended, Tenderness - Rectal Exam Additional comments: saturated dressings. oozing present at lower wound. multiple clots present - Exam Exam: Scrotal Swelling. absent: Circumcision - Extremities Exam Extremities Exam: Normal Inspection. absent: Pedal Edema - Neurological Exam Neurological Exam: Alert, Awake, Oriented x3 - Psychiatric Exam Psychiatric exam: Normal Affect, Normal Mood - Skin Skin Exam: Dry, Normal Color, Warm Assessment and Plan - Assessment and Plan (Free Text) Assessment: 76 y/o M s/p wound debridement POD#1 w/ [employer] called for bleeding - change dressings as needed - apply pressure dressing to lower pole of wound - BID packing changes by surgical team - monitor H/H Pt discussed w/ Dr. Loren Cat DO PGY1
--- NOTE | 2017-01-10 18:08 | PN ---
DATE: 01/10/2017 REASON FOR CONSULTATION: Status post rectal abscess drained, history of coronary artery disease, int estinal obstruction, ileus. BRIEF CLINICAL HISTORY: A 76-year-old male with a past medical history significant for coronary papo ry disease status post PTCA in the past, history of repeat catheterization, patent stent 2013, histor y of initial ____ 2012. Recent stress test 2014 negative, status post permanent pacemaker. Admitted with rectal abscess, status post drainage. Yesterday went for debridement again. Postop course com plicated by ileus. Now, patient feels better. Denies any chest pain, shortness of breath, any palpi tation. PHYSICAL EXAMINATION: As follows: VITAL SIGNS: Temperature afebrile, heart rate 65, blood pressure 153/57. HEENT: PERRLA, intact. NECK: Supple. No carotid bruits. No thyromegaly. CHEST: Clear to auscultation. HEART: S1, S2 regular. ABDOMEN: Soft. EXTREMITIES: Clubbing and cyanosis negative. BLOOD WORKUP: As follows: WBC 7.5, hemoglobin 11, hematocrit 32.7, platelet count 523. Chemistry s hows sodium 134, potassium ____, chloride 105, carbon dioxide 24, anion gap of 9, BUN 12, creatinine 1.0. Total protein 5.4, albumin ____, albumin/globulin ratio 3.2. IMPRESSION: Rectal abscess status post drained, status post redebridement done yesterday. Coronary artery disease status post PTCA. Repeat catheterization, patent stent in 2013. Stress test 2014 neg ative. Status post permanent pacemaker. Protein-calorie malnutrition, protein calorie malnutrition which was severe, now is improving, which was not present on admission. RECOMMENDATIONS: Continue wound care as per surgical. Continue hydralazine p.r.n. Continue losartan . Continue electrolyte supplement as needed. Improve nutritional support. We will follow with you. Thank you, Dr. Orantes for providing the opportunity in taking care of this patient. Gale Mora MD cc: [id number] TT: 01/10/2017 18:07:29 Confirmation # [id number] Dictation # [id number]
--- NOTE | 2017-01-10 19:33 | CP.PCM.PN ---
Subjective - Date & Time of Evaluation Date of Evaluation: 01/10/17 Time of Evaluation: 09:50 - Subjective Subjective: Saw patient while surgery was changing dressings for his perirectal area. No fevers, still with pain in the perirectal area. Objective - Vital Signs/Intake and Output Vital Signs (last 24 hours): Temp Pulse Resp BP Pulse Ox 97.7 F 61 20 160/80 H 96 01/10/17 12:00 01/10/17 18:00 01/10/17 12:00 01/10/17 12:00 01/10/17 06:00 - Medications Medications: Current Medications Acetaminophen (Tylenol 650mg/20.3ml Solution Ud) 650 mg GT Q4H PRN PRN Reason: Fever >100.4 F Albuterol/Ipratropium (Duoneb 3 Mg/0.5 Mg (3 Ml) Ud) 3 ml IH Q2H PRN PRN Reason: Shortness of Breath Last Admin: 12/29/16 23:47 Dose: 3 ml Alprazolam (Xanax) 0.5 mg PO TID PRN; Protocol PRN Reason: Anxiety Aspirin (Aspirin Chewable) 81 mg PO DAILY [facility] Last Admin: 01/10/17 11:01 Dose: 81 mg Diphenhydramine HCl (Benadryl) 25 mg PO HS PRN PRN Reason: Insomnia Last Admin: 01/09/17 01:37 Dose: 25 mg Heparin Sodium (Porcine) (Heparin) 5,000 units SC Q8 [facility] Last Admin: 01/10/17 05:44 Dose: 5,000 units Hydralazine HCl (Apresoline) 10 mg IVP Q6 PRN PRN Reason: FOR SBP>160 and Distolic>100 Hydrochlorothiazide (Hydrodiuril) 25 mg GT DAILY [facility] Last Admin: 01/10/17 11:01 Dose: 25 mg Hydromorphone HCl (Dilaudid) 1 mg IVP Q6 PRN PRN Reason: Pain, moderate (4-7) Cefazolin Sodium (Ancef 1gm In Ns) 1 gm in 100 mls @ 100 mls/hr IVPB Q8 [facility] PRN Reason: Protocol Last Admin: 01/10/17 14:11 Dose: 100 mls/hr Metronidazole (Flagyl) 500 mg in 100 mls @ 100 mls/hr IVPB Q8 [facility] PRN Reason: Protocol Ketorolac Tromethamine (Toradol) 30 mg IVP Q6 PRN PRN Reason: Pain, moderate (4-7) Last Admin: 01/10/17 08:54 Dose: 30 mg Losartan Potassium (Cozaar) 100 mg GT DAILY [facility] Last Admin: 01/10/17 11:01 Dose: 100 mg Nystatin (Nystop Topical Powder) 0 gm TOP TID [facility] Last Admin: 01/10/17 18:50 Dose: 1 appl Ondansetron HCl (Zofran Inj) 4 mg IVP Q4H PRN PRN Reason: Nausea/Vomiting Last Admin: 01/06/17 21:58 Dose: 4 mg Pantoprazole Sodium (Protonix Inj) 40 mg IVP Q12 [facility] Last Admin: 01/10/17 11:02 Dose: 40 mg Povidone Iodine (Betadine 10% Topical Soln) 10 ml TOP QID PRN PRN Reason: Soiled packing Simethicone (Mylicon Chew Tab) 80 mg PO [facility] Last Admin: 01/10/17 18:49 Dose: 80 mg Tamsulosin HCl (Flomax) 0.4 mg PO DAILY [facility] Last Admin: 01/10/17 11:01 Dose: 0.4 mg - Labs Labs: 01/10/17 12:30 01/10/17 12:30 PT 12.6 Seconds (9.9-11.8) H 01/10/17 12:30 INR 1.17 (0.93-1.08) H 01/10/17 12:30 APTT 33.4 Seconds (23.7-30.8) H 01/10/17 12:30 - Constitutional Appears: Non-toxic, No Acute Distress - Head Exam Head Exam: NORMAL INSPECTION - Neck Exam Neck Exam: absent: Meningismus - Respiratory Exam Respiratory Exam: Decreased Breath Sounds - Cardiovascular Exam Cardiovascular Exam: +S1, +S2 - GI/Abdominal Exam GI & Abdominal Exam: Soft. absent: Tenderness - Rectal Exam Additional comments: deep perirectal wound noted Assessment and Plan - Assessment and Plan (Free Text) Plan: Assessment Sepsis due to perirectal abscess S/P I and D POD #14, S/P repeat debridement yesterday - cx growing Strep milleri and E. 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
--- NOTE | 2017-01-10 22:18 | CARD ---
APPROVED REPORT EKG Measurement Heart [id number] P58 [id number] <Conclusion> Electronic ventricular pacemaker
[2017-01-10] MEDS: metroNIDAZOLE IV 500 mg/100 ml 500 MG/100 ML BAG IVPB SCH (23:10)
[2017-01-11] MEDS: ceFAZolin 1 gm in NS 1 GM/100 ML BAG IVPB SCH ×3 (05:06→21:09)
[2017-01-11] MEDS: metroNIDAZOLE IV 500 mg/100 ml 500 MG/100 ML BAG IVPB SCH ×3 (06:06→21:10)
[2017-01-11 07:58] LABS: ADD MANUAL DIFF? NO
[2017-01-11 08:02] LABS: BASO # 0.02 K/mm3 (0.0-2.0); BASO % 0.3 % (0.0-3.0); EOS # 0.1 (0.0-0.7); EOS % 1.7 % (1.5-5.0); HEMATOCRIT 25.6 % (42.0-52.0); LYMPH # 1.5 (1.2-3.4); LYMPH % 22.8 % (22.0-35.0); MEAN CELL VOLUME 89.5 fL (80.0-105.0); MEAN CORPUSCULAR HEMOGLOBIN 30.1 pg (25.0-35.0); MEAN CORPUSCULAR HGB CONC 33.6 g/dl (31.0-37.0); MEAN PLATELET VOLUME 10.2 fl (7.0-11.0); MONO # 0.5 (0.1-0.6); MONO % 8.2 % (1.0-6.0); PLATELET COUNT 441 10^3/uL (120.0-450.0); RED CELL DISTRIBUTION WIDTH 14.4 % (11.5-14.5); WHITE BLOOD COUNT 6.6 10^3/ul (4.5-11.0)
--- NOTE | 2017-01-11 08:02 | CP.PCM.PN ---
Subjective - Date & Time of Evaluation Date of Evaluation: 01/11/17 Time of Evaluation: 07:59 - Subjective Subjective: Surgery: Dr. Pimentel Patient states he feels better today. He denies pain to the area. He reports tolerating diet. Per nursing no acute events overnight. No further bleeding from wound. Objective - Vital Signs/Intake and Output Vital Signs (last 24 hours): Temp Pulse Resp BP Pulse Ox 98.4 F 61 20 112/56 L 100 01/11/17 06:00 01/11/17 06:00 01/11/17 06:00 01/11/17 06:00 01/11/17 06:00 Intake and Output: 01/11/17 01/11/17 06:59 18:59 Intake Total 880 Output Total 550 Balance 330 - Medications Medications: Current Medications Acetaminophen (Tylenol 650mg/20.3ml Solution Ud) 650 mg GT Q4H PRN PRN Reason: Fever >100.4 F Albuterol/Ipratropium (Duoneb 3 Mg/0.5 Mg (3 Ml) Ud) 3 ml IH Q2H PRN PRN Reason: Shortness of Breath Last Admin: 12/29/16 23:47 Dose: 3 ml Alprazolam (Xanax) 0.5 mg PO TID PRN; Protocol PRN Reason: Anxiety Aspirin (Aspirin Chewable) 81 mg PO DAILY [facility] Last Admin: 01/10/17 11:01 Dose: 81 mg Diphenhydramine HCl (Benadryl) 25 mg PO HS PRN PRN Reason: Insomnia Last Admin: 01/11/17 00:32 Dose: 25 mg Heparin Sodium (Porcine) (Heparin) 5,000 units SC Q8 [facility] Last Admin: 01/10/17 05:44 Dose: 5,000 units Hydralazine HCl (Apresoline) 10 mg IVP Q6 PRN PRN Reason: FOR SBP>160 and Distolic>100 Hydrochlorothiazide (Hydrodiuril) 25 mg GT DAILY [facility] Last Admin: 01/10/17 11:01 Dose: 25 mg Hydromorphone HCl (Dilaudid) 1 mg IVP Q6 PRN PRN Reason: Pain, moderate (4-7) Cefazolin Sodium (Ancef 1gm In Ns) 1 gm in 100 mls @ 100 mls/hr IVPB Q8 [facility] PRN Reason: Protocol Last Admin: 01/11/17 05:06 Dose: 100 mls/hr Metronidazole (Flagyl) 500 mg in 100 mls @ 100 mls/hr IVPB Q8 [facility] PRN Reason: Protocol Last Admin: 01/11/17 06:06 Dose: 100 mls/hr Ketorolac Tromethamine (Toradol) 30 mg IVP Q6 PRN PRN Reason: Pain, moderate (4-7) Last Admin: 01/11/17 07:27 Dose: 30 mg Losartan Potassium (Cozaar) 100 mg GT DAILY [facility] Last Admin: 01/10/17 11:01 Dose: 100 mg Nystatin (Nystop Topical Powder) 0 gm TOP TID [facility] Last Admin: 01/10/17 18:50 Dose: 1 appl Ondansetron HCl (Zofran Inj) 4 mg IVP Q4H PRN PRN Reason: Nausea/Vomiting Last Admin: 01/06/17 21:58 Dose: 4 mg Pantoprazole Sodium (Protonix Inj) 40 mg IVP Q12 [facility] Last Admin: 01/10/17 22:12 Dose: 40 mg Povidone Iodine (Betadine 10% Topical Soln) 10 ml TOP QID PRN PRN Reason: Soiled packing Simethicone (Mylicon Chew Tab) 80 mg PO [facility] Last Admin: 01/10/17 22:12 Dose: 80 mg Tamsulosin HCl (Flomax) 0.4 mg PO DAILY [facility] Last Admin: 01/10/17 11:01 Dose: 0.4 mg - Labs Labs: 01/10/17 12:30 01/10/17 12:30 PT 12.6 Seconds (9.9-11.8) H 01/10/17 12:30 INR 1.17 (0.93-1.08) H 01/10/17 12:30 APTT 33.4 Seconds (23.7-30.8) H 01/10/17 12:30 - Constitutional Appears: Non-toxic, No Acute Distress - Head Exam Head Exam: ATRAUMATIC, NORMOCEPHALIC - Eye Exam Eye Exam: EOMI, Normal appearance - ENT Exam ENT Exam: Mucous Membranes Moist - Respiratory Exam Respiratory Exam: NORMAL BREATHING PATTERN. absent: Respiratory Distress - Cardiovascular Exam Cardiovascular Exam: REGULAR RHYTHM - Rectal Exam Additional comments: zaira-rectal wounds x2. left guteal fold to perirectal wound measuring approximately 3x4cm circumfrentially with granulation tissue base. skin edges area clean and appear healthy. Wound transverses to zaira-rectal area medially. packing removed, wound irrigated w/ sterile saline then betadine gauze dressing packed loosely into cavity. Infra-gluteal/perineal wound measuring 2x2cm circumfrentially and 3cm deep. Wound base is clean and skin edges appear healthy. Wound irrigated w/ sterile saline and repacked w/ betadine gauze. - Psychiatric Exam Psychiatric exam: Normal Affect, Normal Mood - Skin Skin Exam: Dry, Normal Color, Warm Assessment and Plan - Assessment and Plan (Free Text) Assessment: 76 y/o male w/ ischiorectal abscess s/p incision/drainage and later debridement Plan: -cont wound care as described -cont abx per ID -will cont to follow -further recs per Dr. Pimentel [facility] PGY1
[2017-01-11 08:17] LABS: ALB/GLOB RATIO 0.7 (1.1-1.8); ALKALINE PHOSPHATASE 45 U/L (38-133); ALT/SGPT 34 U/L (7-56); AST/SGOT 35 U/L (15-59); BILIRUBIN,TOTAL 0.4 mg/dL (0.2-1.3); BLOOD UREA NITROGEN 13 mg/dL (7-21); CALCIUM 7.8 mg/dL (8.4-10.5); CARBON DIOXIDE 28 mmol/L (21-33); CHLORIDE 105 mmol/L (98-107); GFR AFRICAN-AMERICAN > 60; GLUCOSE,RANDOM 114 mg/dL (70-110); MAGNESIUM 1.6 mg/dL (1.7-2.2); PHOSPHOROUS 3.4 mg/dL (2.5-4.5); POTASSIUM 3.7 mmol/L (3.6-5.0); SODIUM 136 mmol/L (132-148); TOTAL PROTEIN 4.8 g/dL (5.8-8.3)
[2017-01-11] MEDS: Simethicone 80 mg Chewtab PO SCH ×4 (08:45→21:10)
--- NOTE | 2017-01-11 09:29 | PN ---
DATE: 01/11/2017 SUBJECTIVE: The patient is lying in bed, comfortable. He states that his abdominal distention is im proving. He denies any nausea, vomiting. He is tolerating solid foods. He has [facility] and has had PT assist him with ambulation. PHYSICAL EXAMINATION: VITAL SIGNS: Reveal temperature of 98.4, blood pressure 112/56, heart rate of 61. HEENT: Reveals sclerae to be white, conjunctivae pale, oral mucosa moist. NECK: Supple. CHEST: Reveals lungs to be clear. HEART: Reveals regular rate and rhythm. ABDOMEN: Softly distended, tympanitic with decreased bowel sounds. EXTREMITIES: Show no edema. LABORATORY DATA: Reveal hemoglobin down to 8.6, white blood cell count 6.6. Chemistries reveal norm al electrolytes. Serum albumin is down to 1.9. IMPRESSION: A 76-year-old male status post repeated incision and drainage of ischiorectal abscess wi th bleeding from his debridement site yesterday. He did have a 3 gram drop in his blood count. He h as had no further bleeding from the wound. He also has improving partial small bowel obstruction. T he patient is also deconditioned. RECOMMENDATIONS: 1. Consider blood transfusion given his cardiac history if his blood count drops any further. 2. Continue physical therapy. 3. Continue local wound care by surgery. Bowen Mota MD cc: [phone] TT: 01/11/2017 09:28:48 Confirmation # [id number] Dictation # [id number]
[2017-01-11] MEDS ORDERED: Magnesium Sulfate 2 GM in Sodium Chloride 0.9% 100 ML IV ONE (10:11)
[2017-01-11] MEDS ORDERED: Potassium Chloride 20 mEq ER Tab PO ONE ×2 (10:11→15:00)
--- NOTE | 2017-01-11 10:28 | CP.PCM.PN ---
Subjective - Date & Time of Evaluation Date of Evaluation: 01/11/17 Time of Evaluation: 09:25 - Subjective Subjective: Still with pain in the perirectal area, no fevers overnight, stools are more solid, no abdominal pain or nausea. Objective - Vital Signs/Intake and Output Vital Signs (last 24 hours): Temp Pulse Resp BP Pulse Ox 98.4 F 61 20 112/56 L 100 01/11/17 06:00 01/11/17 06:00 01/11/17 06:00 01/11/17 06:00 01/11/17 06:00 Intake and Output: 01/11/17 01/11/17 06:59 18:59 Intake Total 880 Output Total 550 Balance 330 - Medications Medications: Current Medications Acetaminophen (Tylenol 650mg/20.3ml Solution Ud) 650 mg GT Q4H PRN PRN Reason: Fever >100.4 F Albuterol/Ipratropium (Duoneb 3 Mg/0.5 Mg (3 Ml) Ud) 3 ml IH Q2H PRN PRN Reason: Shortness of Breath Last Admin: 12/29/16 23:47 Dose: 3 ml Alprazolam (Xanax) 0.5 mg PO TID PRN; Protocol PRN Reason: Anxiety Aspirin (Aspirin Chewable) 81 mg PO DAILY [facility] Last Admin: 01/11/17 10:08 Dose: 81 mg Diphenhydramine HCl (Benadryl) 25 mg PO HS PRN PRN Reason: Insomnia Last Admin: 01/11/17 00:32 Dose: 25 mg Heparin Sodium (Porcine) (Heparin) 5,000 units SC Q8 [facility] Last Admin: 01/10/17 05:44 Dose: 5,000 units Hydralazine HCl (Apresoline) 10 mg IVP Q6 PRN PRN Reason: FOR SBP>160 and Distolic>100 Hydrochlorothiazide (Hydrodiuril) 25 mg GT DAILY [facility] Last Admin: 01/11/17 10:08 Dose: 25 mg Hydromorphone HCl (Dilaudid) 1 mg IVP Q6 PRN PRN Reason: Pain, moderate (4-7) Cefazolin Sodium (Ancef 1gm In Ns) 1 gm in 100 mls @ 100 mls/hr IVPB Q8 [facility] PRN Reason: Protocol Last Admin: 01/11/17 05:06 Dose: 100 mls/hr Metronidazole (Flagyl) 500 mg in 100 mls @ 100 mls/hr IVPB Q8 [facility] PRN Reason: Protocol Last Admin: 01/11/17 06:06 Dose: 100 mls/hr Magnesium Sulfate 2 gm/ Sodium (Chloride) 104 mls @ 102 mls/hr IV ONCE ONE Stop: 01/11/17 11:12 Ketorolac Tromethamine (Toradol) 30 mg IVP Q6 PRN PRN Reason: Pain, moderate (4-7) Last Admin: 01/11/17 07:27 Dose: 30 mg Losartan Potassium (Cozaar) 100 mg GT DAILY [facility] Last Admin: 01/11/17 10:10 Dose: 100 mg Nystatin (Nystop Topical Powder) 0 gm TOP TID [facility] Last Admin: 01/10/17 18:50 Dose: 1 appl Ondansetron HCl (Zofran Inj) 4 mg IVP Q4H PRN PRN Reason: Nausea/Vomiting Last Admin: 01/06/17 21:58 Dose: 4 mg Pantoprazole Sodium (Protonix Inj) 40 mg IVP Q12 [facility] Last Admin: 01/11/17 10:07 Dose: 40 mg Povidone Iodine (Betadine 10% Topical Soln) 10 ml TOP QID PRN PRN Reason: Soiled packing Simethicone (Mylicon Chew Tab) 80 mg PO HS [facility] Last Admin: 01/11/17 08:45 Dose: 80 mg Tamsulosin HCl (Flomax) 0.4 mg PO DAILY [facility] Last Admin: 01/11/17 10:07 Dose: 0.4 mg - Labs Labs: 01/11/17 07:40 01/11/17 07:40 PT 12.6 Seconds (9.9-11.8) H 01/10/17 12:30 INR 1.17 (0.93-1.08) H 01/10/17 12:30 APTT 33.4 Seconds (23.7-30.8) H 01/10/17 12:30 - Constitutional Appears: Non-toxic, No Acute Distress - Head Exam Head Exam: NORMAL INSPECTION - ENT Exam ENT Exam: Mucous Membranes Moist - Neck Exam Neck Exam: absent: Lymphadenopathy, Meningismus - Respiratory Exam Respiratory Exam: Decreased Breath Sounds - Cardiovascular Exam Cardiovascular Exam: +S1, +S2 - GI/Abdominal Exam GI & Abdominal Exam: Soft. absent: Tenderness Assessment and Plan - Assessment and Plan (Free Text) Plan: Assessment Sepsis due to perirectal abscess S/P I and D POD #15, S/P repeat debridement POD #2 - cx growing Strep milleri and E. 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
[2017-01-11] MEDS: Nystatin 100,000 Units/gm Topical Pow(15 gm) TOP SCH ×3 (10:42→18:34)
--- NOTE | 2017-01-11 11:03 | CP.PCM.PN ---
<Ashlyn Moore - Last Filed: 01/11/17 22:34> Subjective - Date & Time of Evaluation Date of Evaluation: 01/11/17 Time of Evaluation: 08:15 - Subjective Subjective: Medicine progress note for Dr Orantes and Dr Sharpe service. No acute events overnight. Patient denies cp, sob. Denies nausea or vomiting. Patient reports the stool is more formed. No more incident of incision site hemorrhage other than yesterday's. Denies fever, chills. Patient reports lack of appetite. Objective - Vital Signs/Intake and Output Vital Signs (last 24 hours): Temp Pulse Resp BP Pulse Ox 98.4 F 61 20 112/56 L 100 01/11/17 06:00 01/11/17 06:00 01/11/17 06:00 01/11/17 06:00 01/11/17 06:00 Intake and Output: 01/11/17 01/11/17 06:59 18:59 Intake Total 880 Output Total 550 Balance 330 - Medications Medications: Current Medications Acetaminophen (Tylenol 650mg/20.3ml Solution Ud) 650 mg GT Q4H PRN PRN Reason: Fever >100.4 F Albuterol/Ipratropium (Duoneb 3 Mg/0.5 Mg (3 Ml) Ud) 3 ml IH Q2H PRN PRN Reason: Shortness of Breath Last Admin: 12/29/16 23:47 Dose: 3 ml Alprazolam (Xanax) 0.5 mg PO TID PRN; Protocol PRN Reason: Anxiety Aspirin (Aspirin Chewable) 81 mg PO DAILY [facility] Last Admin: 01/11/17 10:08 Dose: 81 mg Diphenhydramine HCl (Benadryl) 25 mg PO HS PRN PRN Reason: Insomnia Last Admin: 01/11/17 00:32 Dose: 25 mg Heparin Sodium (Porcine) (Heparin) 5,000 units SC Q8 [facility] Last Admin: 01/10/17 05:44 Dose: 5,000 units Hydralazine HCl (Apresoline) 10 mg IVP Q6 PRN PRN Reason: FOR SBP>160 and Distolic>100 Hydrochlorothiazide (Hydrodiuril) 25 mg GT DAILY [facility] Last Admin: 01/11/17 10:08 Dose: 25 mg Hydromorphone HCl (Dilaudid) 1 mg IVP Q6 PRN PRN Reason: Pain, moderate (4-7) Cefazolin Sodium (Ancef 1gm In Ns) 1 gm in 100 mls @ 100 mls/hr IVPB Q8 [facility] PRN Reason: Protocol Last Admin: 01/11/17 05:06 Dose: 100 mls/hr Metronidazole (Flagyl) 500 mg in 100 mls @ 100 mls/hr IVPB Q8 [facility] PRN Reason: Protocol Last Admin: 01/11/17 06:06 Dose: 100 mls/hr Magnesium Sulfate 2 gm/ Sodium (Chloride) 104 mls @ 102 mls/hr IV ONCE ONE Stop: 01/11/17 11:12 Ketorolac Tromethamine (Toradol) 30 mg IVP Q6 PRN PRN Reason: Pain, moderate (4-7) Last Admin: 01/11/17 07:27 Dose: 30 mg Losartan Potassium (Cozaar) 100 mg GT DAILY [facility] Last Admin: 01/11/17 10:10 Dose: 100 mg Nystatin (Nystop Topical Powder) 0 gm TOP TID [facility] Last Admin: 01/10/17 18:50 Dose: 1 appl Ondansetron HCl (Zofran Inj) 4 mg IVP Q4H PRN PRN Reason: Nausea/Vomiting Last Admin: 01/06/17 21:58 Dose: 4 mg Pantoprazole Sodium (Protonix Inj) 40 mg IVP Q12 [facility] Last Admin: 01/11/17 10:07 Dose: 40 mg Povidone Iodine (Betadine 10% Topical Soln) 10 ml TOP QID PRN PRN Reason: Soiled packing Simethicone (Mylicon Chew Tab) 80 mg PO [facility] Last Admin: 01/11/17 08:45 Dose: 80 mg Tamsulosin HCl (Flomax) 0.4 mg PO DAILY [facility] Last Admin: 01/11/17 10:07 Dose: 0.4 mg - Labs Labs: 01/11/17 07:40 01/11/17 07:40 PT 12.6 Seconds (9.9-11.8) H 01/10/17 12:30 INR 1.17 (0.93-1.08) H 01/10/17 12:30 APTT 33.4 Seconds (23.7-30.8) H 01/10/17 12:30 - Constitutional Appears: No Acute Distress - Head Exam Head Exam: ATRAUMATIC, NORMAL INSPECTION, NORMOCEPHALIC - Eye Exam Eye Exam: Normal appearance. absent: Scleral icterus - ENT Exam ENT Exam: Mucous Membranes Moist - Neck Exam Neck Exam: Normal Inspection - Respiratory Exam Respiratory Exam: Clear to Ausculation Bilateral, NORMAL BREATHING PATTERN. absent: Rales, Rhonchi, Wheezes, Respiratory Distress, Stridor - Cardiovascular Exam Cardiovascular Exam: REGULAR RHYTHM, RRR, +S1, +S2. absent: Murmur - GI/Abdominal Exam GI & Abdominal Exam: Soft, Tenderness, Normal Bowel Sounds. absent: Distended, Firm, Guarding, Rigid - Extremities Exam Extremities Exam: Pedal Edema (+3) - Back Exam Additional comments: + erythema of the sacral region. Perirectal incision site with clean dressing. 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 Patient developed pneumonia during the course of hospitalization, which has resolved. Patient also developed mechanical SOB, and currently have abdominal distention, and uncontrolled diarrhea. Diarrhea and abdominal distention is resolving. Plan: 1) Acute anemia likely secondary to surgical debridement and incision site hemorrhage from yesterday - will repeat cbc - type and cross 2 units - will transfuse if hgb drops further on repeat cbc. 2) Abdominal distension 2nd to sbo- resolving - Patient is now able to tolerate some po intake - Stool is more formed. 3) Hypoalbuminemia - Continue protein rich diet - will give 25 mg iv albumin x2 4) HAP- resolved - continue duoneb prn - on ancef po. 5) Perirectal abscess s/p surgery (I&D) - Patient 's wound was also debrided x2 - wound care as per surgery. 6) Sepsis 2nd to Perirectal abscess s/p surgery - - sepsis resolved - no growth on bcx 7) Hyppomagnesemia/hypokalemia- will replete and monitor 8) DENISE - resolved - will continue to monitor. 9) Transaminitis-resolved 10) CAD w/ stents - continue ASA, hctz and cozaar 11) DVT and GI prophylaxis: protonix and VTE. 12) Dispo-TRCU versus DEYANIRA once medically optimized. Patient seen, examined, discussed with Dr Orantes. <Woody Sharpe - Last Filed: 01/13/17 16:33> Objective - Vital Signs/Intake and Output Vital Signs (last 24 hours): Temp Pulse Resp BP Pulse Ox 98.7 F 61 19 64/57 L 96 01/13/17 12:00 01/13/17 12:00 01/13/17 12:00 01/13/17 12:00 01/13/17 05:51 Intake and Output: 01/13/17 01/13/17 06:59 18:59 Intake Total 735 400 Output Total 500 Balance 235 400 - Medications Medications: Current Medications Acetaminophen (Tylenol 650mg/20.3ml Solution Ud) 650 mg GT Q4H PRN PRN Reason: Fever >100.4 F Albuterol/Ipratropium (Duoneb 3 Mg/0.5 Mg (3 Ml) Ud) 3 ml IH Q2H PRN PRN Reason: Shortness of Breath Last Admin: 01/13/17 08:32 Dose: 3 ml Alprazolam (Xanax) 0.5 mg PO TID PRN; Protocol PRN Reason: Anxiety Aspirin (Aspirin Chewable) 81 mg PO DAILY [facility] Last Admin: 01/13/17 10:19 Dose: 81 mg Diphenhydramine HCl (Benadryl) 25 mg PO HS PRN PRN Reason: Insomnia Last Admin: 01/11/17 00:32 Dose: 25 mg Ferrous Sulfate (Feosol) 324 mg PO TID [facility] Last Admin: 01/13/17 13:52 Dose: 324 mg Heparin Sodium (Porcine) (Heparin) 5,000 units SC Q8 [facility] Last Admin: 01/10/17 05:44 Dose: 5,000 units Hydralazine HCl (Apresoline) 10 mg IVP Q6 PRN PRN Reason: FOR SBP>160 and Distolic>100 Hydrochlorothiazide (Hydrodiuril) 25 mg GT DAILY [facility] Last Admin: 01/13/17 12:31 Dose: 25 mg Hydromorphone HCl (Dilaudid) 1 mg IVP Q6 PRN PRN Reason: Pain, moderate (4-7) Last Admin: 01/13/17 09:22 Dose: 1 mg Cefazolin Sodium (Ancef 1gm In Ns) 1 gm in 100 mls @ 100 mls/hr IVPB Q8 [facility] PRN Reason: Protocol Last Admin: 01/13/17 13:50 Dose: 100 mls/hr Metronidazole (Flagyl) 500 mg in 100 mls @ 100 mls/hr IVPB Q8 [facility] PRN Reason: Protocol Last Admin: 01/13/17 13:51 Dose: 100 mls/hr Ketorolac Tromethamine (Toradol) 30 mg IVP Q6 PRN PRN Reason: Pain, moderate (4-7) Last Admin: 01/13/17 13:49 Dose: 30 mg Losartan Potassium (Cozaar) 100 mg GT DAILY [facility] Last Admin: 01/13/17 10:19 Dose: 100 mg Multivitamins (Thera Tab) 1 tab PO DAILY [facility] Last Admin: 01/13/17 10:19 Dose: 1 tab Nystatin (Nystop Topical Powder) 0 gm TOP TID [facility] Last Admin: 01/13/17 13:52 Dose: 3 appl Ondansetron HCl (Zofran Inj) 4 mg IVP Q4H PRN PRN Reason: Nausea/Vomiting Last Admin: 01/06/17 21:58 Dose: 4 mg Pantoprazole Sodium (Protonix Inj) 40 mg IVP Q12 [facility] Last Admin: 01/13/17 10:19 Dose: 40 mg Povidone Iodine (Betadine 10% Topical Soln) 10 ml TOP QID PRN PRN Reason: Soiled packing Simethicone (Mylicon Chew Tab) 80 mg PO [facility] Last Admin: 01/13/17 12:34 Dose: 80 mg Tamsulosin HCl (Flomax) 0.4 mg PO DAILY [facility] Last Admin: 01/13/17 10:18 Dose: 0.4 mg - Labs Labs: 01/13/17 12:20 01/13/17 06:26 PT 12.6 Seconds (9.9-11.8) H 01/10/17 12:30 INR 1.17 (0.93-1.08) H 01/10/17 12:30 APTT 33.4 Seconds (23.7-30.8) H 01/10/17 12:30 Attending/Attestation - Attestation I have personally seen and examined this patient.: Yes I have fully participated in the care of the patient.: Yes I have reviewed all pertinent clinical information, including history, physical exam and plan: Yes Notes (Text): 01/13/17 16:32 Medical record note made by the resident after discussion with my direction and input after the patient was personally seen and examined by me. I have reviewed the chart and agree that the record accurately reflects by personal performance of the history, physical exam, data review, and medical decision-making, in the course for the patient. I have also personally directed the plan of care.
[2017-01-11 12:04] LABS: HEMATOCRIT 28.4 % (42.0-52.0); MEAN CORPUSCULAR HEMOGLOBIN 30.4 pg (25.0-35.0); MEAN CORPUSCULAR HGB CONC 34.2 g/dl (31.0-37.0); RED CELL DISTRIBUTION WIDTH 14.4 % (11.5-14.5); WHITE BLOOD COUNT 7.2 10^3/ul (4.5-11.0)
--- NOTE | 2017-01-11 14:29 | PN ---
DATE: 01/11/2017 REASON FOR CONSULTATION AND FOLLOWUP: Status post rectal abscess drained, history of coronary artery disease, intestinal obstruction, protein-calorie malnutrition. BRIEF CLINICAL HISTORY: This is a 76-year-old male with a past medical history significant for coron miley artery disease, status post PTCA in the past, history of repeat catheterization 2013, patent sten t, history of initial PTCA in 2012, history of permanent pacemaker, recent stress test was negative. Admitted with rectal abscess, status post drained, redo debridement done yesterday. Lying flat, den ies any chest pain, shortness of breath, any palpitation. Daughter is at the bedside. PHYSICAL EXAMINATION: VITAL SIGNS: Temperature afebrile, heart rate 64, blood pressure 110/86. HEENT: PERRLA. Extraocular muscles intact. NECK: Supple. No carotid bruits. No thyromegaly. CHEST: Clear to auscultation. HEART: S1, S2 regular. ABDOMEN: Soft. EXTREMITIES: Clubbing, cyanosis negative. BLOOD WORKUP: WBC 7.2, hemoglobin 9. , hematocrit 28.4, platelet count 496. Chemistry shows sod ium 136, potassium 3.7, chloride 105, carbon dioxide 28, anion gap of 7, BUN 13, creatinine 1.2, tota l protein 4.8, albumin 1.9, albumin/globulin ratio 0.6. IMPRESSION: Severe protein-calorie malnutrition which was not present on admission, hypokalemia, ane odilia, rectal abscess, status post drained, status post debridement yesterday, history of coronary papo ry disease, status post percutaneous transluminal coronary angioplasty in 2012, status post repeat ca theterization 2013, patent stent, status post permanent pacemaker, sick sinus syndrome, recent stress test in 2014, most recent was negative. RECOMMENDATION: Discontinue IV fluid. Increase nutritional support. We will put on Ensure. Discus sed with the daughter. Encouraged patient in eating. Supplement potassium. We will follow with you . We will put multivitamin, iron preparation also as well as will supplement potassium. We will fol low with you. Discussed with the daughter, discussed with the patient in length. Gale Mora MD cc: [id number] TT: 01/11/2017 14:28:53 Confirmation # [id number] Dictation # [id number]
[2017-01-11] MEDS ORDERED: Magnesium Sulfate 2 GM in Sodium Chloride 0.9% 100 ML IVPB ONE (15:00)
[2017-01-11] MEDS ORDERED: Albumin Human 25% (12.5 gm/50 ml) IV SCH (18:00)
[2017-01-11] MEDS ORDERED: Albumin Human 25% (25 gm/100 ml) IV SCH (18:46)
[2017-01-12] MEDS: metroNIDAZOLE IV 500 mg/100 ml 500 MG/100 ML BAG IVPB SCH ×3 (05:22→22:37)
[2017-01-12] MEDS: ceFAZolin 1 gm in NS 1 GM/100 ML BAG IVPB SCH ×3 (05:28→21:30)
--- NOTE | 2017-01-12 06:45 | CP.PCM.PN ---
Subjective - Date & Time of Evaluation Date of Evaluation: 01/12/17 Time of Evaluation: 07:15 - Subjective Subjective: Medicine progress note for Dr Orantes and Dr Sharpe service. Patient in no acute distress, no overnight events. Denies cp, sob, headache or dizziness. Admits to pain the incision site when he moves. Able to tolerate po, although has poor appetite. Objective - Vital Signs/Intake and Output Vital Signs (last 24 hours): Temp Pulse Resp BP Pulse Ox 98.6 F 64 20 126/54 L 94 L 01/12/17 06:00 01/12/17 06:00 01/12/17 06:00 01/12/17 06:00 01/12/17 06:00 Intake and Output: 01/11/17 01/12/17 18:59 06:59 Intake Total 960 320 Output Total 400 225 Balance 560 95 - Medications Medications: Current Medications Acetaminophen (Tylenol 650mg/20.3ml Solution Ud) 650 mg GT Q4H PRN PRN Reason: Fever >100.4 F Albumin Human (Albumin Human 25% (25 Gm/100 Ml)) 25 gm IV BID [facility] Stop: 01/12/17 18:01 Albuterol/Ipratropium (Duoneb 3 Mg/0.5 Mg (3 Ml) Ud) 3 ml IH Q2H PRN PRN Reason: Shortness of Breath Last Admin: 12/29/16 23:47 Dose: 3 ml Alprazolam (Xanax) 0.5 mg PO TID PRN; Protocol PRN Reason: Anxiety Aspirin (Aspirin Chewable) 81 mg PO DAILY [facility] Last Admin: 01/11/17 10:08 Dose: 81 mg Diphenhydramine HCl (Benadryl) 25 mg PO HS PRN PRN Reason: Insomnia Last Admin: 01/11/17 00:32 Dose: 25 mg Ferrous Sulfate (Feosol) 324 mg PO TID [facility] Last Admin: 01/11/17 18:49 Dose: 324 mg Heparin Sodium (Porcine) (Heparin) 5,000 units SC Q8 [facility] Last Admin: 01/10/17 05:44 Dose: 5,000 units Hydralazine HCl (Apresoline) 10 mg IVP Q6 PRN PRN Reason: FOR SBP>160 and Distolic>100 Hydrochlorothiazide (Hydrodiuril) 25 mg GT DAILY [facility] Last Admin: 01/11/17 10:08 Dose: 25 mg Hydromorphone HCl (Dilaudid) 1 mg IVP Q6 PRN PRN Reason: Pain, moderate (4-7) Cefazolin Sodium (Ancef 1gm In Ns) 1 gm in 100 mls @ 100 mls/hr IVPB Q8 [facility] PRN Reason: Protocol Last Admin: 01/12/17 05:28 Dose: 100 mls/hr Metronidazole (Flagyl) 500 mg in 100 mls @ 100 mls/hr IVPB Q8 [facility] PRN Reason: Protocol Last Admin: 01/12/17 05:22 Dose: 100 mls/hr Ketorolac Tromethamine (Toradol) 30 mg IVP Q6 PRN PRN Reason: Pain, moderate (4-7) Last Admin: 01/11/17 16:43 Dose: 30 mg Losartan Potassium (Cozaar) 100 mg GT DAILY [facility] Last Admin: 01/11/17 10:10 Dose: 100 mg Multivitamins (Thera Tab) 1 tab PO DAILY [facility] Nystatin (Nystop Topical Powder) 0 gm TOP TID [facility] Last Admin: 01/11/17 18:34 Dose: 1 appl Ondansetron HCl (Zofran Inj) 4 mg IVP Q4H PRN PRN Reason: Nausea/Vomiting Last Admin: 01/06/17 21:58 Dose: 4 mg Pantoprazole Sodium (Protonix Inj) 40 mg IVP Q12 [facility] Last Admin: 01/11/17 21:11 Dose: 40 mg Povidone Iodine (Betadine 10% Topical Soln) 10 ml TOP QID PRN PRN Reason: Soiled packing Simethicone (Mylicon Chew Tab) 80 mg PO [facility] Last Admin: 01/11/17 21:10 Dose: 80 mg Tamsulosin HCl (Flomax) 0.4 mg PO DAILY [facility] Last Admin: 01/11/17 10:07 Dose: 0.4 mg - Labs Labs: 01/11/17 11:45 01/11/17 07:40 PT 12.6 Seconds (9.9-11.8) H 01/10/17 12:30 INR 1.17 (0.93-1.08) H 01/10/17 12:30 APTT 33.4 Seconds (23.7-30.8) H 01/10/17 12:30 - Constitutional Appears: No Acute Distress - Head Exam Head Exam: ATRAUMATIC, NORMAL INSPECTION, NORMOCEPHALIC - Eye Exam Eye Exam: EOMI, Normal appearance, PERRL. absent: Scleral icterus - ENT Exam ENT Exam: Mucous Membranes Moist - Neck Exam Neck Exam: Normal Inspection - Respiratory Exam Respiratory Exam: Clear to Ausculation Bilateral, NORMAL BREATHING PATTERN. absent: Rales, Rhonchi, Wheezes, Respiratory Distress, Stridor - Cardiovascular Exam Cardiovascular Exam: REGULAR RHYTHM, RRR, +S1, +S2. absent: Murmur - GI/Abdominal Exam GI & Abdominal Exam: Soft, Normal Bowel Sounds. absent: Distended, Firm, Guarding, Rigid, Tenderness - Extremities Exam Extremities Exam: Pedal Edema (+2) - Back Exam Additional comments: Erythema in the sacral region. - Neurological Exam Neurological Exam: Alert, Awake, Oriented x3 - Psychiatric Exam Psychiatric exam: Normal Affect, Normal Mood - Skin Skin Exam: Dry, Warm Additional comments: Kaia-rectal region with clean dressing. 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 Patient developed pneumonia during the course of hospitalization, which has resolved. Patient also developed mechanical SOB, and currently have abdominal distention, and uncontrolled diarrhea. Diarrhea and abdominal distention is resolving. Patient is somehow stable, surgery to place a wound vac, possibly Sunday. Plan: 1) Acute anemia likely secondary to surgical debridement and incision site hemorrhage from yesterday versus dilution -hgb 8.6 to 9.7, and today 8.1 - Uncertain why hgb keeps fluctuating - will repeat cbc again at 1600, and will transfuse if below 7. 2) Abdominal distension 2nd to sbo- resolving - Patient is now able to tolerate some po intake - Stool is more formed. 3) Hypoalbuminemia- improved - Continue protein rich diet - will give another 25 mg iv albumin today. 4) HAP- resolved - continue duoneb prn - on ancef po. 5) Perirectal abscess s/p surgery (I&D) - s/p wound debridement x2 - wound care as per surgery. 6) Sepsis 2nd to Perirectal abscess s/p surgery - - sepsis resolved - no growth on bcx 7) Hyppomagnesemia/hypokalemia- resolved, will continue to monitor. 8) DENISE - - creat fluctuating, will continue to monitor. 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 10) CAD w/ stents - continue ASA, hctz and cozaar 11) DVT and GI prophylaxis: protonix and VTE. 12) Dispo-TRCU versus DEYANIRA once medically optimized. Patient seen, examined, discussed with Dr Orantes.
[2017-01-12 06:48] LABS: ADD MANUAL DIFF? NO
[2017-01-12 07:15] LABS: BASO # 0.02 K/mm3 (0.0-2.0); BASO % 0.4 % (0.0-3.0); EOS # 0.2 (0.0-0.7); GRAN # 2.78 (1.4-6.5); GRAN % 57.7 % (50.0-68.0); LYMPH # 1.4 (1.2-3.4); LYMPH % 28.6 % (22.0-35.0); MEAN CELL VOLUME 90.2 fL (80.0-105.0); MEAN CORPUSCULAR HEMOGLOBIN 30.5 pg (25.0-35.0); MEAN CORPUSCULAR HGB CONC 33.8 g/dl (31.0-37.0); MEAN PLATELET VOLUME 10.1 fl (7.0-11.0); MONO # 0.4 (0.1-0.6); MONO % 8.3 % (1.0-6.0); PLATELET COUNT 421 10^3/uL (120.0-450.0); RED CELL DISTRIBUTION WIDTH 14.9 % (11.5-14.5); WHITE BLOOD COUNT 4.8 10^3/ul (4.5-11.0)
[2017-01-12 07:25] LABS: ALB/GLOB RATIO 0.8 (1.1-1.8); ALKALINE PHOSPHATASE 43 U/L (38-133); ALT/SGPT 31 U/L (7-56); AST/SGOT 30 U/L (15-59); BILIRUBIN,TOTAL 0.3 mg/dL (0.2-1.3); BLOOD UREA NITROGEN 15 mg/dL (7-21); CALCIUM 7.8 mg/dL (8.4-10.5); CARBON DIOXIDE 24 mmol/L (21-33); CHLORIDE 108 mmol/L (98-107); GFR AFRICAN-AMERICAN > 60; GLUCOSE,RANDOM 113 mg/dL (70-110); MAGNESIUM 2.2 mg/dL (1.7-2.2); PHOSPHOROUS 3.4 mg/dL (2.5-4.5); POTASSIUM 4.1 mmol/L (3.6-5.0); SODIUM 135 mmol/L (132-148); TOTAL PROTEIN 4.9 g/dL (5.8-8.3)
--- NOTE | 2017-01-12 07:56 | CP.PCM.PN ---
Subjective - Date & Time of Evaluation Date of Evaluation: 01/12/17 Time of Evaluation: 07:55 - Subjective Subjective: Surgery: Dr. Pimentel Patient doing well today. He denies any further bleeding from zaira-rectal wounds. He denies f/c. Per nursing no acute events overnight. Objective - Vital Signs/Intake and Output Vital Signs (last 24 hours): Temp Pulse Resp BP Pulse Ox 98.6 F 64 20 126/54 L 94 L 01/12/17 06:00 01/12/17 06:00 01/12/17 06:00 01/12/17 06:00 01/12/17 06:00 Intake and Output: 01/12/17 01/12/17 06:59 18:59 Intake Total 320 Output Total 225 Balance 95 - Medications Medications: Current Medications Acetaminophen (Tylenol 650mg/20.3ml Solution Ud) 650 mg GT Q4H PRN PRN Reason: Fever >100.4 F Albumin Human (Albumin Human 25% (25 Gm/100 Ml)) 25 gm IV BID [facility] Stop: 01/12/17 18:01 Albuterol/Ipratropium (Duoneb 3 Mg/0.5 Mg (3 Ml) Ud) 3 ml IH Q2H PRN PRN Reason: Shortness of Breath Last Admin: 12/29/16 23:47 Dose: 3 ml Alprazolam (Xanax) 0.5 mg PO TID PRN; Protocol PRN Reason: Anxiety Aspirin (Aspirin Chewable) 81 mg PO DAILY [facility] Last Admin: 01/11/17 10:08 Dose: 81 mg Diphenhydramine HCl (Benadryl) 25 mg PO HS PRN PRN Reason: Insomnia Last Admin: 01/11/17 00:32 Dose: 25 mg Ferrous Sulfate (Feosol) 324 mg PO TID [facility] Last Admin: 01/11/17 18:49 Dose: 324 mg Heparin Sodium (Porcine) (Heparin) 5,000 units SC Q8 [facility] Last Admin: 01/10/17 05:44 Dose: 5,000 units Hydralazine HCl (Apresoline) 10 mg IVP Q6 PRN PRN Reason: FOR SBP>160 and Distolic>100 Hydrochlorothiazide (Hydrodiuril) 25 mg GT DAILY [facility] Last Admin: 01/11/17 10:08 Dose: 25 mg Hydromorphone HCl (Dilaudid) 1 mg IVP Q6 PRN PRN Reason: Pain, moderate (4-7) Cefazolin Sodium (Ancef 1gm In Ns) 1 gm in 100 mls @ 100 mls/hr IVPB Q8 [facility] PRN Reason: Protocol Last Admin: 01/12/17 05:28 Dose: 100 mls/hr Metronidazole (Flagyl) 500 mg in 100 mls @ 100 mls/hr IVPB Q8 [facility] PRN Reason: Protocol Last Admin: 01/12/17 05:22 Dose: 100 mls/hr Ketorolac Tromethamine (Toradol) 30 mg IVP Q6 PRN PRN Reason: Pain, moderate (4-7) Last Admin: 01/12/17 07:29 Dose: 30 mg Losartan Potassium (Cozaar) 100 mg GT DAILY [facility] Last Admin: 01/11/17 10:10 Dose: 100 mg Multivitamins (Thera Tab) 1 tab PO DAILY [facility] Nystatin (Nystop Topical Powder) 0 gm TOP TID [facility] Last Admin: 01/11/17 18:34 Dose: 1 appl Ondansetron HCl (Zofran Inj) 4 mg IVP Q4H PRN PRN Reason: Nausea/Vomiting Last Admin: 01/06/17 21:58 Dose: 4 mg Pantoprazole Sodium (Protonix Inj) 40 mg IVP Q12 [facility] Last Admin: 01/11/17 21:11 Dose: 40 mg Povidone Iodine (Betadine 10% Topical Soln) 10 ml TOP QID PRN PRN Reason: Soiled packing Simethicone (Mylicon Chew Tab) 80 mg PO [facility] Last Admin: 01/11/17 21:10 Dose: 80 mg Tamsulosin HCl (Flomax) 0.4 mg PO DAILY [facility] Last Admin: 01/11/17 10:07 Dose: 0.4 mg - Labs Labs: 01/12/17 06:30 01/12/17 06:30 PT 12.6 Seconds (9.9-11.8) H 01/10/17 12:30 INR 1.17 (0.93-1.08) H 01/10/17 12:30 APTT 33.4 Seconds (23.7-30.8) H 01/10/17 12:30 - Constitutional Appears: Non-toxic, No Acute Distress - Head Exam Head Exam: ATRAUMATIC, NORMOCEPHALIC - Eye Exam Eye Exam: EOMI, Normal appearance - ENT Exam ENT Exam: Mucous Membranes Moist - Respiratory Exam Respiratory Exam: NORMAL BREATHING PATTERN. absent: Respiratory Distress - Cardiovascular Exam Cardiovascular Exam: REGULAR RHYTHM. absent: Tachycardia - Rectal Exam Additional comments: zaira-rectal wounds x2. Overall wounds appear clean. left guteal fold to perirectal wound measuring approximately 3x4cm circumfrentially with granulation tissue base. some yellow/ramos exudate which was debrided. skin edges area clean and appear healthy. Wound transverses to zaira-rectal area medially, tunneling about 3cm. packing removed, wound irrigated w/ sterile saline then betadine gauze dressing packed loosely into cavity. Infra-gluteal/ perineal wound measuring 2x2cm circumfrentially and 3cm deep. Wound base is clean and skin edges appear healthy. Wound irrigated w/ sterile saline and repacked w/ betadine gauze. No active bleeding noted. Assessment and Plan - Assessment and Plan (Free Text) Assessment: 76 y/o male w/ ischiorectal abscess s/p incision/drainage and later debridement Plan: -cont wound care as described, patient needs frequent wound assessment/dressing changes -cont abx per primary -monitor wound for bleeding -will plan for further wound debridement, possible partial wound closure, and possible wound vac placement for Sunday -further recs per Dr. Pimentel [facility] PGY1
[2017-01-12] MEDS: Simethicone 80 mg Chewtab PO SCH ×4 (08:16→21:30)
--- NOTE | 2017-01-12 09:52 | PN ---
DATE: 01/12/2017 REASON FOR CONSULTATION AND FOLLOWUP: Status post rectal abscess drained, history of coronary artery disease, intestinal ileus, protein-calorie malnutrition. BRIEF CLINICAL HISTORY: This is a 76-year-old male with a past medical history significant for coron miley artery disease, status post PTCA in the past, history of repeat cath in 2013, patent stent, initi al PTCA was in 2012, history of pacemaker, recent stress test was negative. Admitted with rectal abs cess, is status post drained, status post re-debridement of the wound. Postop course complicated by ileus. Now, is improved. The patient has developed protein-calorie malnutrition. PHYSICAL EXAMINATION: VITAL SIGNS: Temperature afebrile, heart rate 64, blood pressure 126/54. HEENT: PERRLA. Extraocular muscles intact. NECK: Supple. No carotid bruits. No thyromegaly. CHEST: Clear to auscultation. HEART: S1, S2 regular. ABDOMEN: Soft. EXTREMITIES: Clubbing, cyanosis negative. BLOOD WORKUP: WBC 4.8, hemoglobin 8.1, hematocrit 24, platelet count 421. Chemistry shows sodium 13 0, potassium 4. , chloride 108, carbon dioxide 28, anion gap of 7, BUN 15, creatinine 1.3, total protein 4.9, albumin 2.1, albumin/globulin ratio 0.8. IMPRESSION: Severe protein-calorie malnutrition which was not present on admission, anemia postop, status post rectal abscess drainage, status post debridement, status post ileus, improved, protein-ca calderon malnutrition leading to third spacing, coronary artery disease, status post percutaneous transl uminal coronary angioplasty 2012, status post repeat catheterization, patent stent, status post perma nent pacemaker, sick sinus syndrome. RECOMMENDATION: Increase nutritional support. Ensure pudding started, vanilla flavor. Iron, multiv itamin. Out of bed to chair and discontinue IV fluid. Further management as per surgery. Keep pota ssium more than 4 to prevent ileus. Will follow with you. Thank you, Dr. Orantes, for providing us the opportunity in taking care of the patient. Gale Mora MD cc: [id number] TT: 01/12/2017 09:51:47 Confirmation # [id number] Dictation # [id number]
--- NOTE | 2017-01-12 10:18 | CP.PCM.PN ---
Subjective - Date & Time of Evaluation Date of Evaluation: 01/12/17 Time of Evaluation: 09:05 - Subjective Subjective: Less pain in the perirectal area, no fevers overnight, no diarrhea, no nausea, eating better. No abdominal pain. Objective - Vital Signs/Intake and Output Vital Signs (last 24 hours): Temp Pulse Resp BP Pulse Ox 98.6 F 64 20 126/54 L 94 L 01/12/17 06:00 01/12/17 06:00 01/12/17 06:00 01/12/17 06:00 01/12/17 06:00 Intake and Output: 01/12/17 01/12/17 06:59 18:59 Intake Total 320 Output Total 225 Balance 95 - Medications Medications: Current Medications Acetaminophen (Tylenol 650mg/20.3ml Solution Ud) 650 mg GT Q4H PRN PRN Reason: Fever >100.4 F Albumin Human (Albumin Human 25% (25 Gm/100 Ml)) 25 gm IV BID [facility] Stop: 01/12/17 18:01 Albuterol/Ipratropium (Duoneb 3 Mg/0.5 Mg (3 Ml) Ud) 3 ml IH Q2H PRN PRN Reason: Shortness of Breath Last Admin: 12/29/16 23:47 Dose: 3 ml Alprazolam (Xanax) 0.5 mg PO TID PRN; Protocol PRN Reason: Anxiety Aspirin (Aspirin Chewable) 81 mg PO DAILY [facility] Last Admin: 01/11/17 10:08 Dose: 81 mg Diphenhydramine HCl (Benadryl) 25 mg PO HS PRN PRN Reason: Insomnia Last Admin: 01/11/17 00:32 Dose: 25 mg Ferrous Sulfate (Feosol) 324 mg PO TID [facility] Last Admin: 01/11/17 18:49 Dose: 324 mg Heparin Sodium (Porcine) (Heparin) 5,000 units SC Q8 [facility] Last Admin: 01/10/17 05:44 Dose: 5,000 units Hydralazine HCl (Apresoline) 10 mg IVP Q6 PRN PRN Reason: FOR SBP>160 and Distolic>100 Hydrochlorothiazide (Hydrodiuril) 25 mg GT DAILY [facility] Last Admin: 01/11/17 10:08 Dose: 25 mg Hydromorphone HCl (Dilaudid) 1 mg IVP Q6 PRN PRN Reason: Pain, moderate (4-7) Cefazolin Sodium (Ancef 1gm In Ns) 1 gm in 100 mls @ 100 mls/hr IVPB Q8 [facility] PRN Reason: Protocol Last Admin: 01/12/17 05:28 Dose: 100 mls/hr Metronidazole (Flagyl) 500 mg in 100 mls @ 100 mls/hr IVPB Q8 [facility] PRN Reason: Protocol Last Admin: 01/12/17 05:22 Dose: 100 mls/hr Ketorolac Tromethamine (Toradol) 30 mg IVP Q6 PRN PRN Reason: Pain, moderate (4-7) Last Admin: 01/12/17 07:29 Dose: 30 mg Losartan Potassium (Cozaar) 100 mg GT DAILY [facility] Last Admin: 01/11/17 10:10 Dose: 100 mg Multivitamins (Thera Tab) 1 tab PO DAILY [facility] Nystatin (Nystop Topical Powder) 0 gm TOP TID [facility] Last Admin: 01/11/17 18:34 Dose: 1 appl Ondansetron HCl (Zofran Inj) 4 mg IVP Q4H PRN PRN Reason: Nausea/Vomiting Last Admin: 01/06/17 21:58 Dose: 4 mg Pantoprazole Sodium (Protonix Inj) 40 mg IVP Q12 [facility] Last Admin: 01/11/17 21:11 Dose: 40 mg Povidone Iodine (Betadine 10% Topical Soln) 10 ml TOP QID PRN PRN Reason: Soiled packing Simethicone (Mylicon Chew Tab) 80 mg PO [facility] Last Admin: 01/12/17 08:16 Dose: 80 mg Tamsulosin HCl (Flomax) 0.4 mg PO DAILY [facility] Last Admin: 01/11/17 10:07 Dose: 0.4 mg - Labs Labs: 01/12/17 06:30 01/12/17 06:30 PT 12.6 Seconds (9.9-11.8) H 01/10/17 12:30 INR 1.17 (0.93-1.08) H 01/10/17 12:30 APTT 33.4 Seconds (23.7-30.8) H 01/10/17 12:30 - Constitutional Appears: Non-toxic, No Acute Distress - Head Exam Head Exam: NORMAL INSPECTION - ENT Exam ENT Exam: Mucous Membranes Moist - Neck Exam Neck Exam: absent: Lymphadenopathy, Meningismus - Respiratory Exam Respiratory Exam: Decreased Breath Sounds - Cardiovascular Exam Cardiovascular Exam: +S1, +S2 - GI/Abdominal Exam GI & Abdominal Exam: Soft. absent: Tenderness Assessment and Plan - Assessment and Plan (Free Text) Plan: Assessment Sepsis due to perirectal abscess S/P I and D POD #16, S/P repeat debridement POD #3 - cx growing Strep milleri and E. 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
[2017-01-12] MEDS: Nystatin 100,000 Units/gm Topical Pow(15 gm) TOP SCH ×3 (10:20→17:44)
[2017-01-12] MEDS: Multivitamin Therapeutic Tab PO SCH (10:26)
[2017-01-12] MEDS: HYDROmorphone 1 mg/ml ISec IVP PRN ×3 (10:42→23:56)
[2017-01-12] MEDS ORDERED: Albumin Human 25% (12.5 gm/50 ml) IV ONE ×2 (11:17→11:30)
[2017-01-12] MEDS ORDERED: ALBUMIN HUMAN IV ONE (11:49)
[2017-01-12] MEDS ORDERED: Lidocaine 2% Inj (20ml) ONE (15:23)
[2017-01-12 18:47] LABS: MEAN CORPUSCULAR HEMOGLOBIN 30.3 pg (25.0-35.0); MEAN CORPUSCULAR HGB CONC 33.6 g/dl (31.0-37.0); MEAN PLATELET VOLUME 10.1 fl (7.0-11.0)
[2017-01-12 19:06] LABS: HEMATOCRIT 22.6 % (42.0-52.0)
--- NOTE | 2017-01-12 22:11 | VASCULAR ---
PROCEDURE: Ultrasound and fluoroscopically placed left upper extremity PICC line. HISTORY: Perirectal abscess. Long-term IV antibiotics. Needs PICC line. PHYSICIAN(S): Spencer Carmona MD. TECHNIQUE: The relative risks and indications of the procedure were explained to the patient and consent obtained. The patient was placed supine on the arteriogram table and the left arm prepped and draped in the usual sterile fashion. A tourniquet was applied to the left axilla. 1% Xylocaine was used to anesthetize the skin and soft tissues at the puncture site above the elbow. The left basilic vein was punctured under direct ultrasound guidance with a micropuncture set. A 0.018 guidewire was advanced centrally and used to measure the length to the SVC/RA junction. A 5 Austrian single-lumen PICC line 40 cm long was advanced to the SVC/RA junction. The catheter was flushed and secured. The patient tolerated the procedure well. IMPRESSION: 1. Ultrasound and fluoroscopically placed left upper extremity PICC line. A 5 Austrian single-lumen PICC line 40 cm long was advanced to the SVC/RA junction.
[2017-01-13] MEDS: ceFAZolin 1 gm in NS 1 GM/100 ML BAG IVPB SCH ×3 (05:06→21:30)
[2017-01-13] MEDS: metroNIDAZOLE IV 500 mg/100 ml 500 MG/100 ML BAG IVPB SCH ×3 (06:10→21:30)
[2017-01-13 06:32] LABS: ADD MANUAL DIFF? NO
[2017-01-13 06:43] LABS: ALB/GLOB RATIO 0.8 (1.1-1.8); ALKALINE PHOSPHATASE 46 U/L (38-133); ALT/SGPT 28 U/L (7-56); AST/SGOT 35 U/L (15-59); BILIRUBIN,TOTAL 0.4 mg/dL (0.2-1.3); BLOOD UREA NITROGEN 18 mg/dL (7-21); CARBON DIOXIDE 26 mmol/L (21-33); CHLORIDE 107 mmol/L (98-107); GFR AFRICAN-AMERICAN > 60; GLUCOSE,RANDOM 114 mg/dL (70-110); MAGNESIUM 1.9 mg/dL (1.7-2.2); POTASSIUM 4.2 mmol/L (3.6-5.0); SODIUM 137 mmol/L (132-148)
[2017-01-13 06:50] LABS: BASO # 0.02 K/mm3 (0.0-2.0); BASO % 0.4 % (0.0-3.0); EOS # 0.2 (0.0-0.7); EOS % 3.9 % (1.5-5.0); GRAN # 3.12 (1.4-6.5); GRAN % 57.3 % (50.0-68.0); LYMPH # 1.6 (1.2-3.4); LYMPH % 29.8 % (22.0-35.0); MEAN CELL VOLUME 90.5 fL (80.0-105.0); MEAN CORPUSCULAR HEMOGLOBIN 30.8 pg (25.0-35.0); MEAN PLATELET VOLUME 9.9 fl (7.0-11.0); MONO # 0.5 (0.1-0.6); MONO % 8.6 % (1.0-6.0); PLATELET COUNT 384 10^3/uL (120.0-450.0); RED CELL DISTRIBUTION WIDTH 14.9 % (11.5-14.5); WHITE BLOOD COUNT 5.4 10^3/ul (4.5-11.0)
[2017-01-13 07:18] LABS: HEMATOCRIT 23.8 % (42.0-52.0)
[2017-01-13] MEDS: Simethicone 80 mg Chewtab PO SCH ×4 (08:26→21:30)
[2017-01-13] MEDS: Albuterol-Ipratrop 3 mg / 0.5 (3 ml) UD IH PRN (08:32)
[2017-01-13] MEDS: HYDROmorphone 1 mg/ml ISec IVP PRN ×2 (09:22→18:50)
[2017-01-13] MEDS: Nystatin 100,000 Units/gm Topical Pow(15 gm) TOP SCH ×3 (09:56→18:12)
[2017-01-13] MEDS: Multivitamin Therapeutic Tab PO SCH (10:19)
--- NOTE | 2017-01-13 11:24 | CP.PCM.PN ---
Subjective - Date & Time of Evaluation Date of Evaluation: 01/13/17 Time of Evaluation: 09:55 - Subjective Subjective: Comfortable on a chair, not in distress, afebrile, less pain in the perirectal area, no bleeding, no abdominal pain, eating better, no diarrhea. Objective - Vital Signs/Intake and Output Vital Signs (last 24 hours): Temp Pulse Resp BP Pulse Ox 99 F 60 18 147/55 L 96 01/13/17 08:01 01/13/17 08:01 01/13/17 08:01 01/13/17 08:01 01/13/17 05:51 Intake and Output: 01/13/17 01/13/17 06:59 18:59 Intake Total 735 0 Output Total 500 Balance 235 0 - Medications Medications: Current Medications Acetaminophen (Tylenol 650mg/20.3ml Solution Ud) 650 mg GT Q4H PRN PRN Reason: Fever >100.4 F Albuterol/Ipratropium (Duoneb 3 Mg/0.5 Mg (3 Ml) Ud) 3 ml IH Q2H PRN PRN Reason: Shortness of Breath Last Admin: 01/13/17 08:32 Dose: 3 ml Alprazolam (Xanax) 0.5 mg PO TID PRN; Protocol PRN Reason: Anxiety Aspirin (Aspirin Chewable) 81 mg PO DAILY [facility] Last Admin: 01/12/17 10:26 Dose: 81 mg Diphenhydramine HCl (Benadryl) 25 mg PO HS PRN PRN Reason: Insomnia Last Admin: 01/11/17 00:32 Dose: 25 mg Ferrous Sulfate (Feosol) 324 mg PO TID [facility] Last Admin: 01/12/17 17:44 Dose: 324 mg Heparin Sodium (Porcine) (Heparin) 5,000 units SC Q8 [facility] Last Admin: 01/10/17 05:44 Dose: 5,000 units Hydralazine HCl (Apresoline) 10 mg IVP Q6 PRN PRN Reason: FOR SBP>160 and Distolic>100 Hydrochlorothiazide (Hydrodiuril) 25 mg GT DAILY [facility] Last Admin: 01/12/17 10:24 Dose: 25 mg Hydromorphone HCl (Dilaudid) 1 mg IVP Q6 PRN PRN Reason: Pain, moderate (4-7) Last Admin: 01/13/17 09:22 Dose: 1 mg Cefazolin Sodium (Ancef 1gm In Ns) 1 gm in 100 mls @ 100 mls/hr IVPB Q8 [facility] PRN Reason: Protocol Last Admin: 01/13/17 05:06 Dose: 100 mls/hr Metronidazole (Flagyl) 500 mg in 100 mls @ 100 mls/hr IVPB Q8 [facility] PRN Reason: Protocol Last Admin: 01/13/17 06:10 Dose: 100 mls/hr Ketorolac Tromethamine (Toradol) 30 mg IVP Q6 PRN PRN Reason: Pain, moderate (4-7) Last Admin: 01/12/17 07:29 Dose: 30 mg Losartan Potassium (Cozaar) 100 mg GT DAILY [facility] Last Admin: 01/12/17 10:25 Dose: 100 mg Multivitamins (Thera Tab) 1 tab PO DAILY [facility] Last Admin: 01/12/17 10:26 Dose: 1 tab Nystatin (Nystop Topical Powder) 0 gm TOP TID [facility] Last Admin: 01/13/17 09:56 Dose: 3 appl Ondansetron HCl (Zofran Inj) 4 mg IVP Q4H PRN PRN Reason: Nausea/Vomiting Last Admin: 01/06/17 21:58 Dose: 4 mg Pantoprazole Sodium (Protonix Inj) 40 mg IVP Q12 [facility] Last Admin: 01/12/17 21:28 Dose: 40 mg Povidone Iodine (Betadine 10% Topical Soln) 10 ml TOP QID PRN PRN Reason: Soiled packing Simethicone (Mylicon Chew Tab) [address] [facility] Last Admin: 01/13/17 08:26 Dose: 80 mg Tamsulosin HCl (Flomax) 0.4 mg PO DAILY [facility] Last Admin: 01/12/17 10:26 Dose: 0.4 mg - Labs Labs: 01/13/17 06:26 01/13/17 06:26 PT 12.6 Seconds (9.9-11.8) H 01/10/17 12:30 INR 1.17 (0.93-1.08) H 01/10/17 12:30 APTT 33.4 Seconds (23.7-30.8) H 01/10/17 12:30 - Constitutional Appears: Non-toxic, No Acute Distress - Head Exam Head Exam: NORMAL INSPECTION - ENT Exam ENT Exam: Mucous Membranes Moist - Neck Exam Neck Exam: absent: Lymphadenopathy, Meningismus - Respiratory Exam Respiratory Exam: Decreased Breath Sounds - Cardiovascular Exam Cardiovascular Exam: +S1, +S2 - GI/Abdominal Exam GI & Abdominal Exam: Soft. absent: Tenderness Assessment and Plan - Assessment and Plan (Free Text) Plan: Assessment Sepsis due to perirectal abscess S/P I and D POD #17, S/P repeat debridement POD #4 - cx growing Strep milleri and E. 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
[2017-01-13 12:35] LABS: HEMATOCRIT 29.5 % (42.0-52.0); MEAN CELL VOLUME 89.4 fL (80.0-105.0); MEAN CORPUSCULAR HEMOGLOBIN 30.3 pg (25.0-35.0); MEAN CORPUSCULAR HGB CONC 33.9 g/dl (31.0-37.0); MEAN PLATELET VOLUME 10.3 fl (7.0-11.0); RED CELL DISTRIBUTION WIDTH 14.9 % (11.5-14.5); WHITE BLOOD COUNT 6.7 10^3/ul (4.5-11.0)
--- NOTE | 2017-01-13 13:43 | PN ---
DATE: 01/13/[address] Orantes who is off this weekend. I see the patient who is sitting out of bed to chair. He is alert. He is fairly comfortable. He has been through a lot, multiple procedures, some pain on and off, but for the most part he is tolerating it well and is in good spirits. I got a call last night from the nurse that he was very anemic at 7.6 and I transfused him 2 units packed red blood cells. He is feeling better with that. PHYSICAL EXAMINATION: VITAL SIGNS: He has a 98.5 temp, 63 pulse, 153/68 blood pressure, 18 respiratory rate. HEAD: Atraumatic, normocephalic. Throat is moist. NECK: Supple. HEART: Regular rate. LUNGS: Decreased breath sounds bilaterally but clear. ABDOMEN: Morbidly obese, nontender, positive bowel sounds. No guarding, no rebound. EXTREMITIES: Trace edema. MEDICATIONS: He is currently on Ancef, Apresoline, aspirin, Benadryl, betadine , Cozaar, Dilaudid, DuoNeb, Feosol, Flagyl IV, Flomax, heparin, HydroDIURIL, Mylicon, Protonix, Thera-Tabs, Toradol, Tylenol, alprazolam, Zofran. LABORATORY: He has a 137 sodium, potassium 4.2 potassium, BUN is 18, creatinine 1.3, GFR is 54, sugar is 114, calcium is 8, magnesium is 1.9, total bili is 0.4. AST is 35, ALT is 28, alk phos is 46, total protein is 5.5. White count is 6.7, hemoglobin is low at 7.6 after 2 units it is now 10 with a 29.5 hematocrit with 436 platelets. He is being seen by numerous physicians; cardiology, infectious disease, GI. He has multiple problems going on. He has sepsis due to periapical abscess, status post I and D and debridement, he has abdominal distention, coronary artery disease, prostate cancer, gastroesophageal reflux disease, dyslipidemia, hypertension, history of prostate cancer, he is morbidly obese. Continue with aggressive treatment and care. We will check his labs tomorrow. Continue postop care. Alexis Bernstein DO cc: [id number] TT: 01/13/2017 13:42:32 Confirmation # [id number] Dictation # [id number] jn MTDD
--- NOTE | 2017-01-13 19:00 | PN ---
DATE: 01/13/2017 SUBJECTIVE: The patient is lying in bed sleeping. The patient has not had any nausea, vomiting or b leeding from his surgical site, as per his nurse and daughter. He is tolerating solid food, although his appetite is marginal. PHYSICAL EXAMINATION: VITAL SIGNS: Reveal temperature of 98.7, blood pressure 153/68, heart rate is 63. ABDOMEN: Distended, soft, with decreased bowel sounds. There is no tenderness. LABORATORY DATA: Reveal hemoglobin up to 10 grams after transfusion of 2 units of packed red blood c ells, up from 8.1, white blood cell count 6.7. Laboratory data reveal normal electrolytes. Albumin is low at 2.2. IMPRESSION: A 76-year-old male admitted to the hospital with a large ischiorectal abscess, status po st multiple drainage procedures with partial small-bowel obstruction, which is resolving. The patien t had sepsis syndrome from this large ischiorectal abscess. RECOMMENDATIONS: 1. Continue IV antibiotics. 2. Await surgical decision on possible closure of the large perirectal wound/defect as well as place ment of a wound VAC on Sunday. The wound VAC should accelerate healing of the perirectal abscess. Bowen Mota MD cc: [phone] TT: 01/13/2017 18:59:18 Confirmation # [id number] Dictation # [id number]
--- NOTE | 2017-01-13 19:12 | PN ---
DATE: 01/13/2017 The patient is in room 266, bed #2. REASON FOR CONSULTATION AND FOLLOWUP: Status post rectal abscess draining, history of coronary arter y disease and ileus. HISTORY OF PRESENT ILLNESS: The patient is a 76-year-old male with past medical history significant for coronary artery disease status post PTCA in the past, history of repeat catheterization in 2013. The patient's initial PTCA was in 2012, history of pacemaker. Recent stress test was negative. Adm itted with rectal abscess status post drainage of rectal abscess and debridement of the wound. Posto p course was complicated by ileus, which has improved now. The patient is sitting in chair without a ny cardiac symptoms of chest pain, shortness of breath, palpitation. PHYSICAL EXAMINATION: VITAL SIGNS: Blood pressure 147/55, respirations 18, pulse 60, temperature 99. HEAD: Normocephalic. EYES: Pupils normal. Conjunctivae slightly pale. NECK: JVP low. Carotid equal. THORAX: AP diameter normal. LUNGS: Clear. CARDIOVASCULAR: S1, S2. ABDOMEN: Soft, nontender, no organomegaly. Bowel sounds normal. EXTREMITIES: No clubbing, no cyanosis. LABORATORY DATA: WBC 6.7, hemoglobin 10.0, hematocrit 29.5, platelet 436. Sodium 137, potassium 4.2 , BUN 18, creatinine 1.3. AST, ALT normal. Total protein 5.0, albumin 2.2. DIAGNOSES: Severe protein calorie malnutrition, anemia, status post rectus abscess drainage and debr idement, status post ileus, coronary artery disease, history of stent insertion, status post repeat c atheterization, patent stents, status post permanent pacemaker insertion. PLAN: Continue to increase nutritional support. The patient on cefazolin 1 gram IV q. 8 hours, aspi rin 81 mg daily, Cozaar 100 mg daily, ferrous sulfate 324 t.i.d., metronidazole 500 mg IV q. 8 hours, heparin 5000 units subq q. 8 hours, HydroDIURIL 25 mg daily. The patient got 1 dose of Lasix 40 IV today, Protonix 40 daily. We will continue present therapy. Clinically, cardiac status is stable an d will follow with you. Gale Kwong MD cc: [id number] TT: 01/13/2017 19:11:37 Confirmation # [id number] Dictation # [id number] jn
[2017-01-14] MEDS: ceFAZolin 1 gm in NS 1 GM/100 ML BAG IVPB SCH ×3 (05:09→21:47)
[2017-01-14] MEDS: metroNIDAZOLE IV 500 mg/100 ml 500 MG/100 ML BAG IVPB SCH ×3 (05:10→21:47)
[2017-01-14 06:26] LABS: ADD MANUAL DIFF? NO
[2017-01-14 06:34] LABS: BASO # 0.02 K/mm3 (0.0-2.0); BASO % 0.3 % (0.0-3.0); EOS # 0.3 (0.0-0.7); EOS % 5.1 % (1.5-5.0); GRAN # 4.03 (1.4-6.5); HEMATOCRIT 26.8 % (42.0-52.0); LYMPH # 1.6 (1.2-3.4); MEAN CORPUSCULAR HEMOGLOBIN 30.6 pg (25.0-35.0); MEAN CORPUSCULAR HGB CONC 34.3 g/dl (31.0-37.0); MEAN PLATELET VOLUME 10.3 fl (7.0-11.0); MONO # 0.5 (0.1-0.6); MONO % 7.6 % (1.0-6.0); PLATELET COUNT 387 10^3/uL (120.0-450.0); RED CELL DISTRIBUTION WIDTH 15.2 % (11.5-14.5); WHITE BLOOD COUNT 6.5 10^3/ul (4.5-11.0)
[2017-01-14 06:44] LABS: ALB/GLOB RATIO 0.7 (1.1-1.8); ALKALINE PHOSPHATASE 49 U/L (38-133); ALT/SGPT 40 U/L (7-56); AST/SGOT 59 U/L (15-59); BILIRUBIN,TOTAL 0.4 mg/dL (0.2-1.3); BLOOD UREA NITROGEN 22 mg/dL (7-21); CALCIUM 8.1 mg/dL (8.4-10.5); CARBON DIOXIDE 29 mmol/L (21-33); CHLORIDE 103 mmol/L (98-107); GFR AFRICAN-AMERICAN > 60; GLUCOSE,RANDOM 113 mg/dL (70-110); MAGNESIUM 1.5 mg/dL (1.7-2.2); POTASSIUM 3.8 mmol/L (3.6-5.0); SODIUM 135 mmol/L (132-148)
--- NOTE | 2017-01-14 09:24 | PN ---
DATE: 01/14/2017 I see the patient resting comfortably in bed. He slept very well last night. He tells me he is feel ing better today. It is a good morning so far. He is comfortable. He is in no pain. He has got a little bit of an appetite. He tells me he is improving. He is on Ancef, Apresoline, aspirin, Benadryl, betadine, Cozaar, Dilaudid, DuoNeb, iron, Flagyl, Flom ax, heparin, HydroDIURIL, Mylicon, nystatin powder, Protonix, Thera-Tabs, Toradol, Tylenol, Xanax, an d Zofran. PHYSICAL EXAMINATION: VITAL SIGNS: He has a 99 temperature, 64 pulse, 171/61 blood pressure, 20 respiratory rate, 97% O2 s at on room air. HEAD: Atraumatic, normocephalic. THROAT: Moist. NECK: Supple. HEART: Regular rate. LUNGS: Decreased breath sounds bilaterally, but clear. ABDOMEN: Morbidly obese, soft, nontender, positive bowel sounds. EXTREMITIES: Have trace edema. He is here for sepsis, perirectal abscess with incision and drainage, coronary artery disease, hypert ension, anemia. He has a history of prostate cancer. He is morbidly obese. LABORATORIES: He has a 6.5 white count, 9.2 hemoglobin, 26.8 hematocrit with 387 platelets. We are keeping an eye on his hemoglobin. He was just transfused a few days ago. He has a 135 sodium, potas sium 3.8, BUN 22, creatinine 1.1, GFR is greater than 60, sugar is 113. Calcium is 8.1, magnesium 1. 5. Total bili is 0.4, AST is 59, ALT is 40, alk phos 49, total protein is 5.0. He is being seen by multiple physicians, GI, infectious disease, cardiology, pulmonology and interven tional radiology. I will check stool for occult blood to see if maybe he is leaking blood there. I will check his labs tomorrow. Encouraged him to get out of bed to chair. Continue with aggressive t reatment and care, IV antibiotics, postop care. He is in no pain at this time. He had got an appeti te, which is good and he moved his bowels yesterday. Alexis Bernstein DO cc: [id number] TT: 01/14/2017 09:23:38 Confirmation # [id number] Dictation # [id number] en
[2017-01-14] MEDS: Simethicone 80 mg Chewtab PO SCH ×4 (09:50→21:50)
[2017-01-14] MEDS: Multivitamin Therapeutic Tab PO SCH (09:50)
[2017-01-14] MEDS: HYDROmorphone 1 mg/ml ISec IVP PRN ×2 (09:52→18:32)
[2017-01-14] MEDS: Nystatin 100,000 Units/gm Topical Pow(15 gm) TOP SCH ×3 (10:00→17:52)
--- NOTE | 2017-01-14 11:18 | CP.PCM.PN ---
Subjective - Date & Time of Evaluation Date of Evaluation: 01/14/17 Time of Evaluation: 09:45 - Subjective Subjective: Comfortable in bed, not in distress, no fevers, no diarrhea, eating well. Objective - Vital Signs/Intake and Output Vital Signs (last 24 hours): Temp Pulse Resp BP Pulse Ox 99 F 64 20 171/61 H 97 01/14/17 05:43 01/14/17 05:43 01/14/17 05:43 01/14/17 05:43 01/14/17 05:43 Intake and Output: 01/14/17 01/14/17 06:59 18:59 Intake Total 880 Output Total 400 Balance 480 - Medications Medications: Current Medications Acetaminophen (Tylenol 650mg/20.3ml Solution Ud) 650 mg GT Q4H PRN PRN Reason: Fever >100.4 F Albuterol/Ipratropium (Duoneb 3 Mg/0.5 Mg (3 Ml) Ud) 3 ml IH Q2H PRN PRN Reason: Shortness of Breath Last Admin: 01/13/17 08:32 Dose: 3 ml Alprazolam (Xanax) 0.5 mg PO TID PRN; Protocol PRN Reason: Anxiety Last Admin: 01/14/17 01:14 Dose: 0.5 mg Aspirin (Aspirin Chewable) 81 mg PO DAILY [facility] Last Admin: 01/13/17 10:19 Dose: 81 mg Diphenhydramine HCl (Benadryl) 25 mg PO HS PRN PRN Reason: Insomnia Last Admin: 01/13/17 21:30 Dose: 25 mg Ferrous Sulfate (Feosol) 324 mg PO TID [facility] Last Admin: 01/13/17 18:12 Dose: 324 mg Heparin Sodium (Porcine) (Heparin) 5,000 units SC Q8 [facility] Last Admin: 01/10/17 05:44 Dose: 5,000 units Hydralazine HCl (Apresoline) 10 mg IVP Q6 PRN PRN Reason: FOR SBP>160 and Distolic>100 Hydrochlorothiazide (Hydrodiuril) 25 mg GT DAILY [facility] Last Admin: 01/13/17 12:31 Dose: 25 mg Hydromorphone HCl (Dilaudid) 1 mg IVP Q6 PRN PRN Reason: Pain, moderate (4-7) Last Admin: 01/13/17 18:50 Dose: 1 mg Cefazolin Sodium (Ancef 1gm In Ns) 1 gm in 100 mls @ 100 mls/hr IVPB Q8 [facility] PRN Reason: Protocol Last Admin: 01/14/17 05:09 Dose: 100 mls/hr Metronidazole (Flagyl) 500 mg in 100 mls @ 100 mls/hr IVPB Q8 [facility] PRN Reason: Protocol Last Admin: 01/14/17 05:10 Dose: 100 mls/hr Ketorolac Tromethamine (Toradol) 30 mg IVP Q6 PRN PRN Reason: Pain, moderate (4-7) Last Admin: 01/13/17 13:49 Dose: 30 mg Losartan Potassium (Cozaar) 100 mg GT DAILY [facility] Last Admin: 01/13/17 10:19 Dose: 100 mg Multivitamins (Thera Tab) 1 tab PO DAILY [facility] Last Admin: 01/13/17 10:19 Dose: 1 tab Nystatin (Nystop Topical Powder) 0 gm TOP TID [facility] Last Admin: 01/13/17 18:12 Dose: 3 appl Ondansetron HCl (Zofran Inj) 4 mg IVP Q4H PRN PRN Reason: Nausea/Vomiting Last Admin: 01/06/17 21:58 Dose: 4 mg Pantoprazole Sodium (Protonix Inj) 40 mg IVP Q12 [facility] Last Admin: 01/13/17 21:30 Dose: 40 mg Povidone Iodine (Betadine 10% Topical Soln) 10 ml TOP QID PRN PRN Reason: Soiled packing Simethicone (Mylicon Chew Tab) 80 mg PO [facility] Last Admin: 01/13/17 21:30 Dose: 80 mg Tamsulosin HCl (Flomax) 0.4 mg PO DAILY [facility] Last Admin: 01/13/17 10:18 Dose: 0.4 mg - Labs Labs: 01/14/17 06:25 01/14/17 06:25 PT 12.6 Seconds (9.9-11.8) H 01/10/17 12:30 INR 1.17 (0.93-1.08) H 01/10/17 12:30 APTT 33.4 Seconds (23.7-30.8) H 01/10/17 12:30 - Constitutional Appears: Non-toxic, No Acute Distress - Head Exam Head Exam: NORMAL INSPECTION - ENT Exam ENT Exam: Mucous Membranes Moist - Neck Exam Neck Exam: absent: Lymphadenopathy, Meningismus - Respiratory Exam Respiratory Exam: Decreased Breath Sounds - Cardiovascular Exam Cardiovascular Exam: +S1, +S2 - GI/Abdominal Exam GI & Abdominal Exam: Soft. absent: Tenderness Assessment and Plan - Assessment and Plan (Free Text) Plan: Assessment Sepsis due to perirectal abscess S/P I and D POD #18, S/P repeat debridement POD #5 - cx growing Strep milleri and E. 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
--- NOTE | 2017-01-14 11:32 | CP.PCM.PN ---
Subjective - Date & Time of Evaluation Date of Evaluation: 01/14/17 Time of Evaluation: 07:45 - Subjective Subjective: Patient seen and examined this morning. No complaints. Patient denies fever/ chills, chest pain/SOB, abdominal pain. Reports some tenderness along ischiorectal abscess. Packing changed and wound examined. No active purulent drainage noted. No acute events over night. Objective - Vital Signs/Intake and Output Vital Signs (last 24 hours): Temp Pulse Resp BP Pulse Ox 99 F 75 20 171/61 H 97 01/14/17 05:43 01/14/17 10:00 01/14/17 05:43 01/14/17 05:43 01/14/17 05:43 Intake and Output: 01/14/17 01/14/17 06:59 18:59 Intake Total 880 240 Output Total 400 400 Balance 480 -160 - Medications Medications: Current Medications Acetaminophen (Tylenol 650mg/20.3ml Solution Ud) 650 mg GT Q4H PRN PRN Reason: Fever >100.4 F Albuterol/Ipratropium (Duoneb 3 Mg/0.5 Mg (3 Ml) Ud) 3 ml IH Q2H PRN PRN Reason: Shortness of Breath Last Admin: 01/13/17 08:32 Dose: 3 ml Alprazolam (Xanax) 0.5 mg PO TID PRN; Protocol PRN Reason: Anxiety Last Admin: 01/14/17 01:14 Dose: 0.5 mg Aspirin (Aspirin Chewable) [address] [facility] Last Admin: 01/14/17 09:50 Dose: 81 mg Diphenhydramine HCl (Benadryl) 25 mg PO HS PRN PRN Reason: Insomnia Last Admin: 01/13/17 21:30 Dose: 25 mg Ferrous Sulfate (Feosol) [address] [facility] Last Admin: 01/14/17 09:50 Dose: 324 mg Heparin Sodium (Porcine) (Heparin) 5,[address] [facility] Last Admin: 01/10/17 05:44 Dose: 5,000 units Hydralazine HCl (Apresoline) 10 mg IVP Q6 PRN PRN Reason: FOR SBP>160 and Distolic>100 Hydrochlorothiazide (Hydrodiuril) [address] [facility] Last Admin: 01/14/17 09:50 Dose: 25 mg Hydromorphone HCl (Dilaudid) 1 mg IVP Q6 PRN PRN Reason: Pain, moderate (4-7) Last Admin: 01/14/17 09:52 Dose: 1 mg Cefazolin Sodium (Ancef 1gm In Ns) 1 gm in 100 mls @ 100 mls/hr IVPB Q8 [facility] PRN Reason: Protocol Last Admin: 01/14/17 05:09 Dose: 100 mls/hr Metronidazole (Flagyl) 500 mg in 100 mls @ 100 mls/hr IVPB Q8 [facility]ANNE PRN Reason: Protocol Last Admin: 01/14/17 05:10 Dose: 100 mls/hr Ketorolac Tromethamine (Toradol) 30 mg IVP Q6 PRN PRN Reason: Pain, moderate (4-7) Last Admin: 01/13/17 13:49 Dose: 30 mg Losartan Potassium (Cozaar) [address] [facility] Last Admin: 01/14/17 09:50 Dose: 100 mg Multivitamins (Thera Tab) [address] [facility] Last Admin: 01/14/17 09:50 Dose: 1 tab Nystatin (Nystop Topical Powder) [address] [facility] Last Admin: 01/14/17 10:00 Dose: 1 appl Ondansetron HCl (Zofran Inj) 4 mg IVP Q4H PRN PRN Reason: Nausea/Vomiting Last Admin: 01/06/17 21:58 Dose: 4 mg Pantoprazole Sodium (Protonix Inj) [address] [facility] Last Admin: 01/14/17 10:01 Dose: 40 mg Povidone Iodine (Betadine 10% Topical Soln) 10 ml TOP QID PRN PRN Reason: Soiled packing Simethicone (Mylicon Chew Tab) [address] [facility] Last Admin: 01/14/17 09:50 Dose: 80 mg Tamsulosin HCl (Flomax) 0.[address] [facility] Last Admin: 01/14/17 09:50 Dose: 0.4 mg - Labs Labs: 01/14/17 06:25 01/14/17 06:25 PT 12.6 Seconds (9.9-11.8) H 01/10/17 12:30 INR 1.17 (0.93-1.08) H 01/10/17 12:30 APTT 33.4 Seconds (23.7-30.8) H 01/10/17 12:30 - Constitutional Appears: No Acute Distress - Head Exam Head Exam: NORMOCEPHALIC - ENT Exam ENT Exam: Mucous Membranes Moist - Respiratory Exam Respiratory Exam: NORMAL BREATHING PATTERN - Cardiovascular Exam Cardiovascular Exam: +S1, +S2 - GI/Abdominal Exam GI & Abdominal Exam: Soft - Extremities Exam Extremities Exam: absent: Calf Tenderness - Neurological Exam Neurological Exam: Alert, Awake - Psychiatric Exam Psychiatric exam: Normal Mood - Skin Skin Exam: Warm Additional comments: zaira-rectal wounds x2. Wounds appear clean, no purulent discharge noted, no active bleeding noted. left guteal fold to perirectal wound measuring approximately ~3x4cm with granulation tissue base. Skin edges are clean and appear healthy. Wound transverses to zaira-rectal area medially, tunneling about 3cm. Packing removed, wound irrigated w/ sterile saline then betadine gauze dressing packed loosely into cavity. Infra-gluteal/perineal wound measuring ~ 2x2cm and 3cm deep. Wound base is clean and skin edges appear healthy. Wound irrigated w/ sterile saline and repacked w/ betadine gauze. Patient tolerated packing change well. Assessment and Plan - Assessment and Plan (Free Text) Assessment: 76 y/o male w/ ischiorectal abscess s/p incision/drainage and later debridement -cont wound care, patient needs frequent wound assessment/dressing changes -C/w Abx per primary -monitor wound for bleeding -will plan for further wound debridement, possible partial wound closure, and possible wound vac placement for Sunday morning -NPO past midnight -further recs per Dr. Pimentel
--- NOTE | 2017-01-14 14:10 | PN ---
DATE: 01/14/2017 The patient is in room 266, bed 2. REASON FOR CONSULTATION AND FOLLOWUP: Status post rectal abscess draining, history of coronary arter y disease. HISTORY OF PRESENT ILLNESS: The patient is a 76-year-old male with past medical history significant for coronary artery disease status post PTCA in the past, repeat catheterization in 2013. The patien t's initial PTCA was in 2012. History of pacemaker insertion. Recent stress test was negative. Adm itted with a rectal abscess, status post drainage of rectal abscess and debridement of the wound. Po stop course was completed by ileus, which has improved now. The patient denies any chest pain, short ness of breath, or palpitation at present. PHYSICAL EXAMINATION: VITAL SIGNS: Blood pressure 144/66, respirations 19, pulse 68, temperature 98.7. HEAD: Normocephalic. EYES: Pupils normal. Conjunctivae slightly pale. NECK: JVP low. Carotid equal. THORAX: AP diameter normal. LUNGS: Clear. CARDIOVASCULAR: S1, S2. ABDOMEN: Soft, no tenderness, no organomegaly. EXTREMITIES: No clubbing, no cyanosis. LABORATORIES: WBC 6.5, hemoglobin 9.2, hematocrit 26.8, platelet 387. Sodium 135, potassium 3.8, BU N 22, creatinine 1.1. AST, ALT normal. Total protein 5.0, albumin 2.1. DIAGNOSES: Protein calorie malnutrition, anemia, status post rectal abscess drainage and debridement , status post ileus, coronary artery disease, history of stent insertion, patent stents on repeat cat heterization, status post permanent pacemaker insertion. PLAN: The patient is on Ancef 1 gram IV daily, aspirin 81 mg daily, Cozaar 100 mg daily, ferrous sul fate 324 t.i.d., metronidazole 500 mg IV daily, heparin 5000 units subQ q. 8 hours, hydrochlorothiazi de 25 mg daily. We will continue present therapy. Clinically, cardiac status is stable. We will fo llow with you. Gale Kwong MD cc: [id number] TT: 01/14/2017 14:09:37 Confirmation # [id number] Dictation # [id number] en
[2017-01-15] MEDS: HYDROmorphone 1 mg/ml ISec IVP PRN ×3 (02:01→18:02)
[2017-01-15] MEDS: ceFAZolin 1 gm in NS 1 GM/100 ML BAG IVPB SCH ×3 (05:02→21:44)
[2017-01-15] MEDS: metroNIDAZOLE IV 500 mg/100 ml 500 MG/100 ML BAG IVPB SCH ×3 (05:03→21:47)
[2017-01-15 06:17] LABS: ADD MANUAL DIFF? NO
[2017-01-15 06:30] LABS: ALKALINE PHOSPHATASE 48 U/L (38-133); ALT/SGPT 39 U/L (7-56); AST/SGOT 49 U/L (15-59); BILIRUBIN,TOTAL 0.5 mg/dL (0.2-1.3); BLOOD UREA NITROGEN 18 mg/dL (7-21); CALCIUM 8.2 mg/dL (8.4-10.5); CARBON DIOXIDE 31 mmol/L (21-33); CHLORIDE 102 mmol/L (95-110); GFR AFRICAN-AMERICAN > 60; GLUCOSE,RANDOM 105 mg/dL (70-110); POTASSIUM 4.1 mmol/L (3.6-5.0); SODIUM 135 mmol/L (132-148); TOTAL PROTEIN 5.2 g/dL (5.8-8.3)
[2017-01-15 06:37] LABS: BASO # 0.03 K/mm3 (0.0-2.0); BASO % 0.5 % (0.0-3.0); EOS # 0.3 (0.0-0.7); EOS % 4.4 % (1.5-5.0); GRAN % 53.1 % (50.0-68.0); LYMPH # 2.2 (1.2-3.4); LYMPH % 33.6 % (22.0-35.0); MEAN CORPUSCULAR HEMOGLOBIN 30.3 pg (25.0-35.0); MEAN CORPUSCULAR HGB CONC 33.7 g/dl (31.0-37.0); MEAN PLATELET VOLUME 10.3 fl (7.0-11.0); MONO # 0.5 (0.1-0.6); MONO % 8.4 % (1.0-6.0); PLATELET COUNT 342 10^3/uL (120.0-450.0); RED CELL DISTRIBUTION WIDTH 15.6 % (11.5-14.5); WHITE BLOOD COUNT 6.4 10^3/ul (4.5-11.0)
[2017-01-15 07:01] LABS: ALB/GLOB RATIO 0.7 (1.1-1.8)
--- NOTE | 2017-01-15 09:13 | CP.PCM.PN ---
<Merlin Barragan - Last Filed: 01/15/17 14:17> Subjective - Date & Time of Evaluation Date of Evaluation: 01/15/17 Time of Evaluation: 09:12 - Subjective Subjective: Medicine progress note for Dr. Orantes/Dr. Sharpe - Merlin Barragan PGY1 Patient seen and examined at bedside this morning. No acute overnight events or new complaints. Denies chest pain, palpitations, SOB. Patient scheduled for OR intervention today, will follow up. Objective - Vital Signs/Intake and Output Vital Signs (last 24 hours): Temp Pulse Resp BP Pulse Ox 98.7 F 65 20 165/64 H 92 L 01/15/17 05:57 01/15/17 05:59 01/15/17 05:57 01/15/17 05:59 01/15/17 05:57 Intake and Output: 01/15/17 01/15/17 06:59 18:59 Intake Total 700 Output Total 625 Balance 75 - Medications Medications: Current Medications Acetaminophen (Tylenol 650mg/20.3ml Solution Ud) 650 mg GT Q4H PRN PRN Reason: Fever >100.4 F Albuterol/Ipratropium (Duoneb 3 Mg/0.5 Mg (3 Ml) Ud) 3 ml IH Q2H PRN PRN Reason: Shortness of Breath Last Admin: 01/13/17 08:32 Dose: 3 ml Alprazolam (Xanax) 0.5 mg PO TID PRN; Protocol PRN Reason: Anxiety Last Admin: 01/14/17 21:49 Dose: 0.5 mg Aspirin (Aspirin Chewable) 81 mg PO DAILY [facility] Last Admin: 01/14/17 09:50 Dose: 81 mg Diphenhydramine HCl (Benadryl) 25 mg PO HS PRN PRN Reason: Insomnia Last Admin: 01/14/17 21:49 Dose: 25 mg Ferrous Sulfate (Feosol) 324 mg PO TID [facility] Last Admin: 01/14/17 17:51 Dose: 324 mg Heparin Sodium (Porcine) (Heparin) 5,000 units SC Q8 [facility] Last Admin: 01/10/17 05:44 Dose: 5,000 units Hydralazine HCl (Apresoline) 10 mg IVP Q6 PRN PRN Reason: FOR SBP>160 and Distolic>100 Last Admin: 01/15/17 05:59 Dose: 10 mg Hydrochlorothiazide (Hydrodiuril) 25 mg GT DAILY [facility] Last Admin: 01/14/17 09:50 Dose: 25 mg Hydromorphone HCl (Dilaudid) 1 mg IVP Q6 PRN PRN Reason: Pain, moderate (4-7) Last Admin: 01/15/17 02:01 Dose: 1 mg Cefazolin Sodium (Ancef 1gm In Ns) 1 gm in 100 mls @ 100 mls/hr IVPB Q8 [facility] PRN Reason: Protocol Last Admin: 01/15/17 05:02 Dose: 100 mls/hr Metronidazole (Flagyl) 500 mg in 100 mls @ 100 mls/hr IVPB Q8 [facility]RIANNE PRN Reason: Protocol Last Admin: 01/15/17 05:03 Dose: 100 mls/hr Ketorolac Tromethamine (Toradol) 30 mg IVP Q6 PRN PRN Reason: Pain, moderate (4-7) Last Admin: 01/13/17 13:49 Dose: 30 mg Losartan Potassium (Cozaar) 100 mg GT DAILY [facility] Last Admin: 01/14/17 09:50 Dose: 100 mg Multivitamins (Thera Tab) 1 tab PO DAILY [facility] Last Admin: 01/14/17 09:50 Dose: 1 tab Nystatin (Nystop Topical Powder) 0 gm TOP TID [facility] Last Admin: 01/14/17 17:52 Dose: 1 appl Ondansetron HCl (Zofran Inj) 4 mg IVP Q4H PRN PRN Reason: Nausea/Vomiting Last Admin: 01/06/17 21:58 Dose: 4 mg Pantoprazole Sodium (Protonix Inj) 40 mg IVP Q12 [facility] Last Admin: 01/14/17 21:48 Dose: 40 mg Povidone Iodine (Betadine 10% Topical Soln) 10 ml TOP QID PRN PRN Reason: Soiled packing Simethicone (Mylicon Chew Tab) 80 mg PO [facility] Last Admin: 01/14/17 21:50 Dose: 80 mg Tamsulosin HCl (Flomax) 0.4 mg PO DAILY [facility] Last Admin: 01/14/17 09:50 Dose: 0.4 mg - Labs Labs: 01/15/17 06:00 01/15/17 06:00 PT 12.6 Seconds (9.9-11.8) H 01/10/17 12:30 INR 1.17 (0.93-1.08) H 01/10/17 12:30 APTT 33.4 Seconds (23.7-30.8) H 01/10/17 12:30 - Constitutional Appears: Non-toxic, No Acute Distress - Head Exam Head Exam: ATRAUMATIC, NORMAL INSPECTION, NORMOCEPHALIC - Eye Exam Eye Exam: EOMI, PERRL - ENT Exam ENT Exam: Mucous Membranes Moist - Neck Exam Neck Exam: Normal Inspection. absent: Tenderness - Respiratory Exam Respiratory Exam: Clear to Ausculation Bilateral. absent: Rales, Rhonchi, Wheezes - Cardiovascular Exam Cardiovascular Exam: RRR, +S1, +S2. absent: Gallop, Rubs, Murmur - GI/Abdominal Exam GI & Abdominal Exam: Soft. 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 Patient developed pneumonia during the course of hospitalization, which has resolved. Patient also developed mechanical SOB, and currently have abdominal distention, and uncontrolled diarrhea. Diarrhea and abdominal distention is resolving. Patient is somehow stable, surgery to place a wound vac, possibly Sunday. 1. Perirectal abscess -Patient is s/p previous surgical intervention and is scheduled for repeat OR intervention today -Continue with Cefazolin and flagyl as per ID recommendations -Wound culture positive for Step milleri and Ecoli -Blood cultures negative -Afebrile, no leukocytosis -Continue with wound care 2. Acute anemia likely secondary to surgical debridement and incision site hemorrhage from yesterday versus dilution -Will continue to follow H/H -No overt bleeding at this time -Patient to be transfused is Hgb below 7 or overt bleeding is present 3. Abdominal distension -Patient reported more formed stools and is able to tolerate some PO intake 4. HAP -continue duoneb prn -on ancef po. 5. 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 6. CAD w/ stents -continue ASA, hctz and cozaar 7. DVT and GI prophylaxis: protonix and VTE. 8. Dispo-TRCU versus DEYANIRA once medically optimized. Patient seen, examined, discussed with Dr. Sharpe <Woody Sharpe - Last Filed: 01/25/17 19:27> Objective - Vital Signs/Intake and Output Vital Signs (last 24 hours): Temp Pulse Resp BP Pulse Ox 98.3 F 62 18 129/57 L 95 01/25/17 17:50 01/25/17 17:50 01/25/17 17:50 01/25/17 17:50 01/25/17 06:00 Intake and Output: 01/25/17 01/26/17 18:59 06:59 Intake Total 200 Output Total 400 Balance -200 - Labs Labs: 01/22/17 06:00 01/22/17 06:00 PT 12.6 Seconds (9.9-11.8) H 01/10/17 12:30 INR 1.17 (0.93-1.08) H 01/10/17 12:30 APTT 33.4 Seconds (23.7-30.8) H 01/10/17 12:30 Attending/Attestation - Attestation I have personally seen and examined this patient.: Yes I have fully participated in the care of the patient.: Yes I have reviewed all pertinent clinical information, including history, physical exam and plan: Yes Notes (Text): 01/25/17 19:27 Medical record note made by the resident after discussion with my direction and input after the patient was personally seen and examined by me. I have reviewed the chart and agree that the record accurately reflects by personal performance of the history, physical exam, data review, and medical decision-making, in the course for the patient. I have also personally directed the plan of care.
--- NOTE | 2017-01-15 09:17 | CP.PCM.PN ---
Subjective - Date & Time of Evaluation Date of Evaluation: 01/15/17 Time of Evaluation: 08:05 - Subjective Subjective: Comfortably resting in bed, much improved pain in the perirectal area, for possible wound vacuum placement today. No fevers overnight. Objective - Vital Signs/Intake and Output Vital Signs (last 24 hours): Temp Pulse Resp BP Pulse Ox 98.7 F 65 20 165/64 H 92 L 01/15/17 05:57 01/15/17 05:59 01/15/17 05:57 01/15/17 05:59 01/15/17 05:57 Intake and Output: 01/15/17 01/15/17 06:59 18:59 Intake Total 700 Output Total 625 Balance 75 - Medications Medications: Current Medications Acetaminophen (Tylenol 650mg/20.3ml Solution Ud) 650 mg GT Q4H PRN PRN Reason: Fever >100.4 F Albuterol/Ipratropium (Duoneb 3 Mg/0.5 Mg (3 Ml) Ud) 3 ml IH Q2H PRN PRN Reason: Shortness of Breath Last Admin: 01/13/17 08:32 Dose: 3 ml Alprazolam (Xanax) 0.5 mg PO TID PRN; Protocol PRN Reason: Anxiety Last Admin: 01/14/17 21:49 Dose: 0.5 mg Aspirin (Aspirin Chewable) 81 mg PO DAILY [facility] Last Admin: 01/14/17 09:50 Dose: 81 mg Diphenhydramine HCl (Benadryl) 25 mg PO HS PRN PRN Reason: Insomnia Last Admin: 01/14/17 21:49 Dose: 25 mg Ferrous Sulfate (Feosol) 324 mg PO TID [facility] Last Admin: 01/14/17 17:51 Dose: 324 mg Heparin Sodium (Porcine) (Heparin) 5,000 units SC Q8 [facility] Last Admin: 01/10/17 05:44 Dose: 5,000 units Hydralazine HCl (Apresoline) 10 mg IVP Q6 PRN PRN Reason: FOR SBP>160 and Distolic>100 Last Admin: 01/15/17 05:59 Dose: 10 mg Hydrochlorothiazide (Hydrodiuril) 25 mg GT DAILY [facility] Last Admin: 01/14/17 09:50 Dose: 25 mg Hydromorphone HCl (Dilaudid) 1 mg IVP Q6 PRN PRN Reason: Pain, moderate (4-7) Last Admin: 01/15/17 02:01 Dose: 1 mg Cefazolin Sodium (Ancef 1gm In Ns) 1 gm in 100 mls @ 100 mls/hr IVPB Q8 [facility] PRN Reason: Protocol Last Admin: 01/15/17 05:02 Dose: 100 mls/hr Metronidazole (Flagyl) 500 mg in 100 mls @ 100 mls/hr IVPB Q8 [facility]RIANNE PRN Reason: Protocol Last Admin: 01/15/17 05:03 Dose: 100 mls/hr Ketorolac Tromethamine (Toradol) 30 mg IVP Q6 PRN PRN Reason: Pain, moderate (4-7) Last Admin: 01/13/17 13:49 Dose: 30 mg Losartan Potassium (Cozaar) 100 mg GT DAILY [facility] Last Admin: 01/14/17 09:50 Dose: 100 mg Multivitamins (Thera Tab) 1 tab PO DAILY [facility] Last Admin: 01/14/17 09:50 Dose: 1 tab Nystatin (Nystop Topical Powder) 0 gm TOP TID [facility] Last Admin: 01/14/17 17:52 Dose: 1 appl Ondansetron HCl (Zofran Inj) 4 mg IVP Q4H PRN PRN Reason: Nausea/Vomiting Last Admin: 01/06/17 21:58 Dose: 4 mg Pantoprazole Sodium (Protonix Inj) 40 mg IVP Q12 [facility] Last Admin: 01/14/17 21:48 Dose: 40 mg Povidone Iodine (Betadine 10% Topical Soln) 10 ml TOP QID PRN PRN Reason: Soiled packing Simethicone (Mylicon Chew Tab) 80 mg PO [facility] Last Admin: 01/14/17 21:50 Dose: 80 mg Tamsulosin HCl (Flomax) 0.4 mg PO DAILY [facility] Last Admin: 01/14/17 09:50 Dose: 0.4 mg - Labs Labs: 01/15/17 06:00 01/15/17 06:00 PT 12.6 Seconds (9.9-11.8) H 01/10/17 12:30 INR 1.17 (0.93-1.08) H 01/10/17 12:30 APTT 33.4 Seconds (23.7-30.8) H 01/10/17 12:30 - Constitutional Appears: Non-toxic, No Acute Distress - Head Exam Head Exam: NORMAL INSPECTION - ENT Exam ENT Exam: Mucous Membranes Moist - Neck Exam Neck Exam: absent: Lymphadenopathy, Meningismus - Respiratory Exam Respiratory Exam: Decreased Breath Sounds - Cardiovascular Exam Cardiovascular Exam: +S1, +S2 - GI/Abdominal Exam GI & Abdominal Exam: Soft. absent: Tenderness Assessment and Plan - Assessment and Plan (Free Text) Plan: Assessment Sepsis due to perirectal abscess S/P I and D POD #19, S/P repeat debridement POD #6 - cx growing Strep milleri and E. coli; lower lobe HCAP, resolved Abdominal distention consider bowel obstruction CAD S/P PCI prostate ca s/p robotic reconstruction 6 years ago GERD dyslipidemia history of 3rd degree AV block s/p permanent pacemaker placement history of dilated cardiomyopathy HTN history of back surgery S/P carotid endarterectomy Plan continue Cefazolin and Flagyl as discussed with Surgery and will await further plans of surgery for possible wound vacuum today as well as wound findings today will continue to monitor clinically
[2017-01-15] MEDS: Simethicone 80 mg Chewtab PO SCH ×4 (09:31→21:45)
[2017-01-15] MEDS: Multivitamin Therapeutic Tab PO SCH (10:15)
[2017-01-15] MEDS: Nystatin 100,000 Units/gm Topical Pow(15 gm) TOP SCH ×3 (10:58→18:28)
[2017-01-15] MEDS ORDERED: Bupivacaine 0.5% Inj(30mL) ONE (12:20)
[2017-01-15] MEDS ORDERED: Lidocaine 1% Inj (20ml) ONE (12:20)
--- NOTE | 2017-01-15 12:25 | PN ---
DATE: 01/15/2017 SUBJECTIVE: The patient is lying in a stretcher, waiting to have surgery for his left ischiorectal a bscess. He denies any abdominal pain, nausea, vomiting. He states that his abdomen is less distende d. He denies any diarrhea. PHYSICAL EXAMINATION: VITAL SIGNS: Reveal temperature of 98.3, blood pressure 166/60, heart rate 65. ABDOMEN: Softly distended, nontender. There is much less abdominal distention. LABORATORY DATA: Reveal white blood cell count 6.4, hemoglobin 9.1. Electrolytes are normal. IMPRESSION: A 76-year-old male with: 1. A large ischiorectal abscess, status post multiple drainage and debridement procedures, now for p ossible closure of his perirectal wound with possible wound VAC placement. 2. Resolving small bowel obstruction. RECOMMENDATIONS: 1. Continue surgical care. 2. Continue close monitoring for recurrence of small bowel obstruction. Bowen Mota MD cc: [phone] TT: 01/15/2017 12:25:12 Confirmation # [id number] Dictation # [id number] en
[2017-01-15] MEDS ORDERED: Propofol 10 mg/ml Inj (20 ML) ONE (12:36)
[2017-01-15] MEDS ORDERED: Midazolam 2 MG/2 ML VIAL ONE (12:36)
--- NOTE | 2017-01-15 13:28 | PN ---
DATE: 01/15/2017 REASON FOR CONSULTATION AND FOLLOWUP: Status post rectal abscess, history of coronary artery disease . BRIEF CLINICAL HISTORY: A 76-year-old male with a past medical history significant for coronary papo ry disease, status post PTCA in 2012, repeat catheterization 2013, history of permanent pacemaker, hi story of recent stress test negative, admitted with rectal abscess status post drainage, status post debridement, developed protein-calorie malnutrition and ileus. Now, patient is improving. PHYSICAL EXAMINATION: As follows: VITAL SIGNS: Temperature afebrile, heart rate 65, blood pressure 166/60. HEENT: PERRLA. Extraocular muscles intact. NECK: Supple. No carotid bruits. No thyromegaly. CHEST: Clear to auscultation. HEART: S1, S2 regular. ABDOMEN: Soft. EXTREMITIES: Clubbing and cyanosis negative. BLOOD WORKUP: As follows: WBC 6.4, hemoglobin 9.1, hematocrit 27.0, platelet count 342. Chemistry shows sodium 135, potassium 4.0, chloride 102, carbon dioxide ____, anion gap of 6, BUN of 18, creati nine 1.1. Total protein 5.2, albumin 2.2, albumin/globulin ratio 0.7. IMPRESSION: Protein-calorie malnutrition, severe, now improving, which was not present on admission. Anemia. Coronary artery disease status post percutaneous transluminal coronary angioplasty in 2012 , status post repeat catheterization, patent stent in 2013; recent stress test negative, status post permanent pacemaker. Status post ileus, improved. RECOMMENDATION: Increase nutritional support. Ambulate out of bed to chair. Monitor H and H. [place] multivitamin and iron preparation. Continue DVT prophylaxis. Thank you, Dr. Orantes for providing us the opportunity in taking care of the patient. We will foll ow with you. Gale Mora MD cc: [id number] TT: 01/15/2017 13:27:19 Confirmation # [id number] Dictation # [id number] sn
--- NOTE | 2017-01-15 14:00 | PCM.SURG1 ---
Surgeon's Initial Post Op Note - Surgeon's Notes Surgeon: Dr. Pimentel Title Agent: Dr. brennan Type of Anesthesia: General LMA Pre-Operative Diagnosis: Zaira-rectal wound Operative Findings: see operative report Post-Operative Diagnosis: zaiar-rectal wound Operation Performed: deep sharp and blunt debridement of nectrotic tissue, muscle and fascia with delayed primary partial closure of zaira-rectal wound Specimen/Specimens Removed: none Estimated Blood Loss: EBL {In ML}: 10 Blood Products Given: N/A Drains Used: No Drains Post-Op Condition: Good Date of Surgery/Procedure: 01/15/17 Time of Surgery/Procedure: 13:59
[2017-01-15] MEDS ORDERED: HYDROmorphone 0.5 mg/0.5 ml ISec IVP PRN (14:11)
[2017-01-15] MEDS ORDERED: Lactated Ringer's 1,000 ML IV SCH (14:11)
[2017-01-15] MEDS ORDERED: HYDROmorphone 0.5 mg/0.5 ml ISec IVP ONE (14:13)
--- NOTE | 2017-01-15 16:20 | OP ---
PROCEDURE DATE: 01/15/2017 PREOPERATIVE DIAGNOSES: Perirectal abscess with open perianal wound, necrotic muscle, fascia, skin a nd fat. POSTOPERATIVE DIAGNOSES: Perirectal abscess with open perianal wound, necrotic muscle, fascia, skin and fat. PROCEDURES PERFORMED: 1. Debridement of the devitalized tissues of fat, skin, muscle and fascia. 2. Partial closure of the chronic perianal wound. SURGEON: Dr. Pimentel. MASTER CONTROL TECHNICIAN: Dr. Ramirez. ANESTHESIOLOGIST: Dr. García. ANESTHESIA: LMA general anesthesia. ESTIMATED BLOOD LOSS: Minimal. SPECIMEN: None. INDICATION: The patient is a 76-year-old male with history of perirectal abscess, currently returnin g for debridement of the extensive perirectal, perianal and left buttock wound. The patient was debr ided last week about 5 days ago and currently came back for partial closure of the wound and further debridement. DESCRIPTION OF PROCEDURE: The patient was brought to the operating room and placed on the operating table in supine position. The patient was connected to EKG, blood pressure and pulse oximeter monito rs. The patient then underwent LMA general anesthesia and was prepped and draped in the usual lithot kain position. First, sharp debridement of the devitalized tissues of the abscess cavity was done usi ng #11 blade and Adore scissors. Once all the devitalized tissue was cleaned up to bleeding tissue, t hen the wound was carefully pulse lavaged in order to clean up the debris. The pulse lavaged solutio n contained antibiotics. After tedious pulse lavage of the wound, we were able to clean it up furthe r. The bleeding was minimal. At this point, I proceeded with closure of the smaller wound on top of the field, at about 1 o'clock position. I then narrowed the larger wound at the 3 o'clock position by closing of the edges of the skin, the closest to the anus in order to push the wound away from the anus and therefore improve the ability to keep it clean from contamination. Once this was done, the closure was done with 0 Vicryl mattress stitches. I then proceeded with packing the cavity of the w ound using 1 inch iodoform gauze packing. Once the wound was completely packed, sterile dressing was applied on top of it and the patient was then awakened and transferred to recovery room for further observation. Narayan Pimentel MD cc: [id number] TT: 01/15/2017 16:19:14 rn
[2017-01-16] MEDS: HYDROmorphone 1 mg/ml ISec IVP PRN ×2 (00:04→07:34)
[2017-01-16] MEDS: Acetaminophen 650mg/20.3ml solution UD GT PRN (00:04)
[2017-01-16] MEDS: ceFAZolin 1 gm in NS 1 GM/100 ML BAG IVPB SCH (05:23)
[2017-01-16] MEDS: metroNIDAZOLE IV 500 mg/100 ml 500 MG/100 ML BAG IVPB SCH (05:50)
[2017-01-16 06:44] LABS: ADD MANUAL DIFF? NO
[2017-01-16 07:06] LABS: BASO # 0.02 K/mm3 (0.0-2.0); BASO % 0.3 % (0.0-3.0); EOS # 0.4 (0.0-0.7); EOS % 5.7 % (1.5-5.0); GRAN % 53.5 % (50.0-68.0); HEMATOCRIT 29.4 % (42.0-52.0); LYMPH # 1.9 (1.2-3.4); LYMPH % 28.7 % (22.0-35.0); MEAN CELL VOLUME 92.7 fL (80.0-105.0); MEAN CORPUSCULAR HGB CONC 32.3 g/dl (31.0-37.0); MEAN PLATELET VOLUME 10.3 fl (7.0-11.0); MONO # 0.8 (0.1-0.6); MONO % 11.8 % (1.0-6.0); PLATELET COUNT 327 10^3/uL (120.0-450.0); RED CELL DISTRIBUTION WIDTH 15.9 % (11.5-14.5); WHITE BLOOD COUNT 6.5 10^3/ul (4.5-11.0)
[2017-01-16 07:07] LABS: ALB/GLOB RATIO 0.7 (1.1-1.8); ALKALINE PHOSPHATASE 48 U/L (38-133); ALT/SGPT 32 U/L (7-56); AST/SGOT 38 U/L (15-59); BILIRUBIN,TOTAL 0.5 mg/dL (0.2-1.3); BLOOD UREA NITROGEN 19 mg/dL (7-21); CALCIUM 8.3 mg/dL (8.4-10.5); CARBON DIOXIDE 30 mmol/L (21-33); CHLORIDE 103 mmol/L (98-107); GFR AFRICAN-AMERICAN > 60; GLUCOSE,RANDOM 116 mg/dL (70-110); SODIUM 136 mmol/L (132-148); TOTAL PROTEIN 5.5 g/dL (5.8-8.3)
[2017-01-16 07:08] LABS: POTASSIUM 3.9 mmol/L (3.6-5.0)
--- NOTE | 2017-01-16 07:19 | CP.PCM.PN ---
Subjective - Date & Time of Evaluation Date of Evaluation: 01/16/17 Time of Evaluation: 07:15 - Subjective Subjective: Medicine progress note for Dr. Orantes/Dr. Annemarie Barragan PGY1 Patient seen and examined at bedside this morning. Patient had a fever of 101.0F overnight which responded well to tylenol and his since resolved. Will obtain CXR this morning and discuss possible abx changes with ID. Patient underwent wound debridement yesterday (POD#1). Denies chest pain, palpitations, SOB. Objective - Vital Signs/Intake and Output Vital Signs (last 24 hours): Temp Pulse Resp BP Pulse Ox 98.2 F 93 H 20 143/58 L 93 L 01/16/17 06:00 01/16/17 06:00 01/16/17 06:00 01/16/17 06:00 01/16/17 06:00 Intake and Output: 01/16/17 01/16/17 06:59 18:59 Intake Total 200 Output Total 400 Balance -200 - Medications Medications: Current Medications Acetaminophen (Tylenol 650mg/20.3ml Solution Ud) 650 mg GT Q4H PRN PRN Reason: Fever >100.4 F Last Admin: 01/16/17 00:04 Dose: 650 mg Albuterol/Ipratropium (Duoneb 3 Mg/0.5 Mg (3 Ml) Ud) 3 ml IH Q2H PRN PRN Reason: Shortness of Breath Last Admin: 01/13/17 08:32 Dose: 3 ml Alprazolam (Xanax) 0.5 mg PO TID PRN; Protocol PRN Reason: Anxiety Last Admin: 01/14/17 21:49 Dose: 0.5 mg Aspirin (Aspirin Chewable) 81 mg PO DAILY [facility] Last Admin: 01/15/17 10:15 Dose: Not Given Diphenhydramine HCl (Benadryl) 25 mg PO HS PRN PRN Reason: Insomnia Last Admin: 01/15/17 21:45 Dose: 25 mg Ferrous Sulfate (Feosol) 324 mg PO TID ON [facility] Last Admin: 01/15/17 18:25 Dose: 324 mg Heparin Sodium (Porcine) (Heparin) 5,000 units SC Q8 [facility] Last Admin: 01/10/17 05:44 Dose: 5,000 units Hydralazine HCl (Apresoline) 10 mg IVP Q6 PRN PRN Reason: FOR SBP>160 and Distolic>100 Last Admin: 01/15/17 17:49 Dose: 10 mg Hydrochlorothiazide (Hydrodiuril) 25 mg GT DAILY [facility] Last Admin: 01/15/17 10:18 Dose: Not Given Hydromorphone HCl (Dilaudid) 1 mg IVP Q6 PRN PRN Reason: Pain, moderate (4-7) Last Admin: 01/16/17 00:04 Dose: 1 mg Cefazolin Sodium (Ancef 1gm In Ns) 1 gm in 100 mls @ 100 mls/hr IVPB Q8 ON [facility] PRN Reason: Protocol Last Admin: 01/16/17 05:23 Dose: 100 mls/hr Metronidazole (Flagyl) 500 mg in 100 mls @ 100 mls/hr IVPB Q8 [facility] PRN Reason: Protocol Last Admin: 01/16/17 05:50 Dose: 100 mls/hr Ketorolac Tromethamine (Toradol) 30 mg IVP Q6 PRN PRN Reason: Pain, moderate (4-7) Last Admin: 01/13/17 13:49 Dose: 30 mg Losartan Potassium (Cozaar) 100 mg GT DAILY [facility] Last Admin: 01/15/17 10:15 Dose: Not Given Multivitamins (Thera Tab) 1 tab PO DAILY [facility] Last Admin: 01/15/17 10:15 Dose: Not Given Nystatin (Nystop Topical Powder) 0 gm TOP TID ON [facility] Last Admin: 01/15/17 18:28 Dose: 1 appl Ondansetron HCl (Zofran Inj) 4 mg IVP Q4H PRN PRN Reason: Nausea/Vomiting Last Admin: 01/06/17 21:58 Dose: 4 mg Ondansetron HCl (Zofran Inj) 4 mg IVP ONCE PRN PRN Reason: Nausea/Vomiting Pantoprazole Sodium (Protonix Inj) 40 mg IVP Q12 ON [facility] Last Admin: 01/15/17 21:46 Dose: 40 mg Povidone Iodine (Betadine 10% Topical Soln) 10 ml TOP QID PRN PRN Reason: Soiled packing Simethicone (Mylicon Chew Tab) 80 mg PO [facility] Last Admin: 01/15/17 21:45 Dose: 80 mg Tamsulosin HCl (Flomax) 0.4 mg PO DAILY [facility] Last Admin: 01/15/17 10:15 Dose: Not Given - Labs Labs: 01/16/17 06:40 01/16/17 06:40 PT 12.6 Seconds (9.9-11.8) H 01/10/17 12:30 INR 1.17 (0.93-1.08) H 01/10/17 12:30 APTT 33.4 Seconds (23.7-30.8) H 01/10/17 12:30 - Constitutional Appears: Non-toxic, No Acute Distress - Head Exam Head Exam: ATRAUMATIC, NORMAL INSPECTION, NORMOCEPHALIC - Eye Exam Eye Exam: EOMI, PERRL - ENT Exam ENT Exam: Mucous Membranes Moist - Neck Exam Neck Exam: Normal Inspection - Respiratory Exam Respiratory Exam: Clear to Ausculation Bilateral. absent: Rales, Rhonchi, Wheezes - Cardiovascular Exam Cardiovascular Exam: RRR, +S1, +S2. absent: Gallop, Rubs - GI/Abdominal Exam GI & Abdominal Exam: Soft. 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 1. Perirectal abscess -Patient is s/p previous surgical intervention and had repeated wound debridement yesterday (POD#1) -Continue with Cefazolin and flagyl as per ID recommendations -Wound culture positive for Step milleri and Ecoli -Blood cultures negative -no leukocytosis -Patient with mild fever of 101.0F overnight which has since resolved; will obtain CXR, repeat blood and urine cultures as well as give 1 dose of vancomycin per ID recommendations -Continue with wound care as per surgery recommendations 2. Acute anemia likely multifactorial secondary to OR intervention and dilutional -Will continue to follow H/H and transfuse as necessary -No overt bleeding at this time -Patient to be transfused is Hgb below 7 or overt bleeding is present 3. Abdominal distension -Patient reported more formed stools and is able to tolerate some PO intake -Continue with simethicone 4. HAP, resolved -afebrile, no leukocytosis 5. 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 CAD w/ stents -continue ASA, hctz and cozaar 7. DVT and GI prophylaxis: protonix and VTE 8. Disposition -TCU vs [facility] vs LTAC once medically optimized Patient seen, examined, discussed with Dr. Orantes
--- NOTE | 2017-01-16 08:24 | CP.PCM.PN ---
Subjective - Date & Time of Evaluation Date of Evaluation: 01/16/17 Time of Evaluation: 08:22 - Subjective Subjective: Surgery: Dr. Pimentel Patient states pain is controlled. Dressing did have to be changed last night due to being soiled with stool. Patient tolerating diet. He states he had a low grade fever last night which responded to medication. Duncan put out 950cc of clear yellow urine. Objective - Vital Signs/Intake and Output Vital Signs (last 24 hours): Temp Pulse Resp BP Pulse Ox 98.2 F 93 H 20 143/58 L 93 L 01/16/17 06:00 01/16/17 06:00 01/16/17 06:00 01/16/17 06:00 01/16/17 06:00 Intake and Output: 01/16/17 01/16/17 06:59 18:59 Intake Total 200 Output Total 400 Balance -200 - Medications Medications: Current Medications Acetaminophen (Tylenol 650mg/20.3ml Solution Ud) 650 mg GT Q4H PRN PRN Reason: Fever >100.4 F Last Admin: 01/16/17 00:04 Dose: 650 mg Albuterol/Ipratropium (Duoneb 3 Mg/0.5 Mg (3 Ml) Ud) 3 ml IH Q2H PRN PRN Reason: Shortness of Breath Last Admin: 01/13/17 08:32 Dose: 3 ml Alprazolam (Xanax) 0.5 mg PO TID PRN; Protocol PRN Reason: Anxiety Last Admin: 01/14/17 21:49 Dose: 0.5 mg Aspirin (Aspirin Chewable) 81 mg PO DAILY [facility] Last Admin: 01/15/17 10:15 Dose: Not Given Diphenhydramine HCl (Benadryl) 25 mg PO HS PRN PRN Reason: Insomnia Last Admin: 01/15/17 21:45 Dose: 25 mg Ferrous Sulfate (Feosol) 324 mg PO TID [facility] Last Admin: 01/15/17 18:25 Dose: 324 mg Heparin Sodium (Porcine) (Heparin) 5,000 units SC Q8 [facility] Last Admin: 01/10/17 05:44 Dose: 5,000 units Hydralazine HCl (Apresoline) 10 mg IVP Q6 PRN PRN Reason: FOR SBP>160 and Distolic>100 Last Admin: 01/15/17 17:49 Dose: 10 mg Hydrochlorothiazide (Hydrodiuril) 25 mg GT DAILY [facility] Last Admin: 01/15/17 10:18 Dose: Not Given Hydromorphone HCl (Dilaudid) 1 mg IVP Q6 PRN PRN Reason: Pain, moderate (4-7) Last Admin: 01/16/17 07:34 Dose: 1 mg Cefazolin Sodium (Ancef 1gm In Ns) 1 gm in 100 mls @ 100 mls/hr IVPB Q8 [facility] PRN Reason: Protocol Last Admin: 01/16/17 05:23 Dose: 100 mls/hr Metronidazole (Flagyl) 500 mg in 100 mls @ 100 mls/hr IVPB Q8 [facility] PRN Reason: Protocol Last Admin: 01/16/17 05:50 Dose: 100 mls/hr Ketorolac Tromethamine (Toradol) 30 mg IVP Q6 PRN PRN Reason: Pain, moderate (4-7) Last Admin: 01/13/17 13:49 Dose: 30 mg Losartan Potassium (Cozaar) 100 mg GT DAILY [facility] Last Admin: 01/15/17 10:15 Dose: Not Given Multivitamins (Thera Tab) 1 tab PO DAILY [facility] Last Admin: 01/15/17 10:15 Dose: Not Given Nystatin (Nystop Topical Powder) 0 gm TOP TID [facility] Last Admin: 01/15/17 18:28 Dose: 1 appl Ondansetron HCl (Zofran Inj) 4 mg IVP Q4H PRN PRN Reason: Nausea/Vomiting Last Admin: 01/06/17 21:58 Dose: 4 mg Ondansetron HCl (Zofran Inj) 4 mg IVP ONCE PRN PRN Reason: Nausea/Vomiting Pantoprazole Sodium (Protonix Inj) 40 mg IVP Q12 [facility] Last Admin: 01/15/17 21:46 Dose: 40 mg Povidone Iodine (Betadine 10% Topical Soln) 10 ml TOP QID PRN PRN Reason: Soiled packing Simethicone (Mylicon Chew Tab) 80 mg PO [facility] Last Admin: 01/15/17 21:45 Dose: 80 mg Tamsulosin HCl (Flomax) 0.4 mg PO DAILY [facility] Last Admin: 01/15/17 10:15 Dose: Not Given - Labs Labs: 01/16/17 06:40 01/16/17 06:40 PT 12.6 Seconds (9.9-11.8) H 01/10/17 12:30 INR 1.17 (0.93-1.08) H 01/10/17 12:30 APTT 33.4 Seconds (23.7-30.8) H 01/10/17 12:30 - Constitutional Appears: Non-toxic, No Acute Distress - Head Exam Head Exam: ATRAUMATIC, NORMOCEPHALIC - Eye Exam Eye Exam: EOMI, Normal appearance - ENT Exam ENT Exam: Mucous Membranes Moist - Respiratory Exam Respiratory Exam: NORMAL BREATHING PATTERN. absent: Respiratory Distress - Cardiovascular Exam Cardiovascular Exam: REGULAR RHYTHM. absent: Tachycardia - Rectal Exam Additional comments: zaira-rectal wound on left side, wound now partially delayed primarily closed. 1.5 x 2 cm open irregular boarder circular wound on the left inferior gluteal ridge with beefy red healthy tissue base showing. Wound tracks inferiorly, superiorly, and laterally about 4-5 cm with overlying tissue roof closed with vicryl sutures. Wound is about 3 cm deep. Skin edges appear healthy, no necrotic tissue. Wound irrigated with half saline and half peroxide then packed with 1 inch iodoform packing. Wound covered with gauze dressing, 3M tape, then tegaderm to attempt water tight seal. Assessment and Plan - Assessment and Plan (Free Text) Assessment: 76 y/o male w/ zaira-rectal abscess s/p I&D, debridement, and POD1 from further debridement and delayed partial primary closure Plan: -will change packing today -patient needs wound vac for placement this week -medical management per primary -cont abx -reg diet -pain control -further recs per Dr. Pimentel [facility] PGY1
[2017-01-16] MEDS: Multivitamin Therapeutic Tab PO SCH (09:57)
[2017-01-16] MEDS: Simethicone 80 mg Chewtab PO SCH ×4 (09:59→22:30)
[2017-01-16] MEDS: Nystatin 100,000 Units/gm Topical Pow(15 gm) TOP SCH ×3 (10:00→18:00)
[2017-01-16] MEDS ORDERED: Vancomycin 1gm in NS 250ml 1 GM/250 ML BAG IVPB STA (10:07)
[2017-01-16] MEDS ORDERED: HYDROmorphone 0.5 mg/0.5 ml ISec IVP STA (10:17)
--- NOTE | 2017-01-16 10:50 | CP.PCM.PN ---
Subjective - Date & Time of Evaluation Date of Evaluation: 01/16/17 Time of Evaluation: 09:20 - Subjective Subjective: Patient had debridement yesterday, developed fever overnight, no nausea, no diarrhea. Comfortable in bed currently. Objective - Vital Signs/Intake and Output Vital Signs (last 24 hours): Temp Pulse Resp BP Pulse Ox 98.2 F 93 H 20 143/58 L 93 L 01/16/17 06:00 01/16/17 06:00 01/16/17 06:00 01/16/17 06:00 01/16/17 06:00 Intake and Output: 01/16/17 01/16/17 06:59 18:59 Intake Total 200 Output Total 400 Balance -200 - Medications Medications: Current Medications Acetaminophen (Tylenol 650mg/20.3ml Solution Ud) 650 mg GT Q4H PRN PRN Reason: Fever >100.4 F Last Admin: 01/16/17 00:04 Dose: 650 mg Albuterol/Ipratropium (Duoneb 3 Mg/0.5 Mg (3 Ml) Ud) 3 ml IH Q2H PRN PRN Reason: Shortness of Breath Last Admin: 01/13/17 08:32 Dose: 3 ml Alprazolam (Xanax) 0.5 mg PO TID PRN; Protocol PRN Reason: Anxiety Last Admin: 01/14/17 21:49 Dose: 0.5 mg Aspirin (Aspirin Chewable) 81 mg PO DAILY [facility] Last Admin: 01/15/17 10:15 Dose: Not Given Diphenhydramine HCl (Benadryl) 25 mg PO HS PRN PRN Reason: Insomnia Last Admin: 01/15/17 21:45 Dose: 25 mg Ferrous Sulfate (Feosol) 324 mg PO TID [facility] Last Admin: 01/15/17 18:25 Dose: 324 mg Heparin Sodium (Porcine) (Heparin) 5,000 units SC Q8 [facility] Last Admin: 01/10/17 05:44 Dose: 5,000 units Hydralazine HCl (Apresoline) 10 mg IVP Q6 PRN PRN Reason: FOR SBP>160 and Distolic>100 Last Admin: 01/15/17 17:49 Dose: 10 mg Hydrochlorothiazide (Hydrodiuril) 25 mg GT DAILY [facility] Last Admin: 01/15/17 10:18 Dose: Not Given Hydromorphone HCl (Dilaudid) 1 mg IVP Q6 PRN PRN Reason: Pain, moderate (4-7) Last Admin: 01/16/17 07:34 Dose: 1 mg Cefazolin Sodium (Ancef 1gm In Ns) 1 gm in 100 mls @ 100 mls/hr IVPB Q8 [facility] PRN Reason: Protocol Last Admin: 01/16/17 05:23 Dose: 100 mls/hr Metronidazole (Flagyl) 500 mg in 100 mls @ 100 mls/hr IVPB Q8 [facility] PRN Reason: Protocol Last Admin: 01/16/17 05:50 Dose: 100 mls/hr Ketorolac Tromethamine (Toradol) 30 mg IVP Q6 PRN PRN Reason: Pain, moderate (4-7) Last Admin: 01/13/17 13:49 Dose: 30 mg Losartan Potassium (Cozaar) 100 mg GT DAILY [facility] Last Admin: 01/15/17 10:15 Dose: Not Given Multivitamins (Thera Tab) 1 tab PO DAILY [facility] Last Admin: 01/15/17 10:15 Dose: Not Given Nystatin (Nystop Topical Powder) 0 gm TOP TID [facility] Last Admin: 01/15/17 18:28 Dose: 1 appl Ondansetron HCl (Zofran Inj) 4 mg IVP Q4H PRN PRN Reason: Nausea/Vomiting Last Admin: 01/06/17 21:58 Dose: 4 mg Ondansetron HCl (Zofran Inj) 4 mg IVP ONCE PRN PRN Reason: Nausea/Vomiting Pantoprazole Sodium (Protonix Inj) 40 mg IVP Q12 [facility] Last Admin: 01/15/17 21:46 Dose: 40 mg Povidone Iodine (Betadine 10% Topical Soln) 10 ml TOP QID PRN PRN Reason: Soiled packing Simethicone (Mylicon Chew Tab) 80 mg PO [facility] Last Admin: 01/15/17 21:45 Dose: 80 mg Tamsulosin HCl (Flomax) 0.4 mg PO DAILY [facility] Last Admin: 01/15/17 10:15 Dose: Not Given - Labs Labs: 01/16/17 06:40 01/16/17 06:40 PT 12.6 Seconds (9.9-11.8) H 01/10/17 12:30 INR 1.17 (0.93-1.08) H 01/10/17 12:30 APTT 33.4 Seconds (23.7-30.8) H 01/10/17 12:30 - Constitutional Appears: Non-toxic, No Acute Distress - Head Exam Head Exam: NORMAL INSPECTION - ENT Exam ENT Exam: Mucous Membranes Moist - Neck Exam Neck Exam: absent: Lymphadenopathy, Meningismus - Respiratory Exam Respiratory Exam: Decreased Breath Sounds - Cardiovascular Exam Cardiovascular Exam: +S1, +S2 - GI/Abdominal Exam GI & Abdominal Exam: Soft. absent: Tenderness Assessment and Plan - Assessment and Plan (Free Text) Plan: Assessment Sepsis due to perirectal abscess S/P I and D POD #20, S/P repeat debridement POD #7, and partial closure and repeat debridement POD #1 - cx growing Strep milleri and E. coli; patient has post-op fever, R/O new onset sepsis lower lobe HCAP, resolved Abdominal distention consider bowel obstruction CAD S/P PCI prostate ca s/p robotic reconstruction 6 years ago GERD dyslipidemia history of 3rd degree AV block s/p permanent pacemaker placement history of dilated cardiomyopathy HTN history of back surgery S/P carotid endarterectomy Plan will give a dose of IV Vancomycin and change antibiotics to Zosyn pending repeat blood, urine cx, CXR will continue to monitor clinically
--- NOTE | 2017-01-16 10:54 | PN ---
DATE: 01/16/2017 REASON FOR CONSULTATION AND FOLLOWUP: Status post rectal abscess, drained, status post debridement; history of coronary artery disease. BRIEF CLINICAL HISTORY: This is a 76-year-old male with a past medical history significant for coron miley artery disease status post PTCA 2012, repeat catheterization in 2013 patent stent. Recent stress test negative. History of a pacemaker. Admitted with rectal abscess, status post drainage, status post debridement yesterday, dressing was done. Denies any chest pain, shortness of breath, any palpi tation. PHYSICAL EXAMINATION: VITAL SIGNS: Temperature afebrile, heart rate 93, blood pressure 143/58. HEENT: PERRLA. Extraocular muscles intact. NECK: Supple. No carotid bruits. No thyromegaly. CHEST: Clear to auscultation. HEART: S1, S2 regular. ABDOMEN: Soft. EXTREMITIES: Clubbing and cyanosis negative. BLOOD WORKUP: As follows: WBC 6.5, hemoglobin 9.____, hematocrit 29.4, platelet count 327. [place] shows sodium 130, potassium 3.9, chloride 103, carbon dioxide 30, anion gap of 7, BUN 19, creatini ne 1.1. Total protein 5.5, albumin 2.3. IMPRESSION: Severe protein-calorie malnutrition that was not present on admission, anemia, rectal ab scess, coronary artery disease status post pacemaker. RECOMMENDATION: Increase nutritional support. Continue the antibiotic. Continue wound care, local, as per surgery. CV status is stable. Will follow with you. Thank you, Dr. Orantes, for providing the opportunity in taking care of the patient. Increase nutri tional support. Added Ensure to the diet. Will also add magnesium phosphate level in tomorrow's blo od workup. CV status is stable. Telemetry can be discontinued. Gale Mora MD cc: [phone] TT: 01/16/2017 10:53:47 Confirmation # [id number] Dictation # [id number] mn
--- NOTE | 2017-01-16 11:10 | RAD ---
HISTORY: r/o atelectasis/pna COMPARISON: 01/01/2017 FINDINGS: LUNGS: No active pulmonary disease. PLEURA: No significant pleural effusion identified, no pneumothorax apparent. CARDIOVASCULAR: The heart is normal in size. There is mild to moderate vascular congestion right greater than left OSSEOUS STRUCTURES: No significant abnormalities. VISUALIZED UPPER ABDOMEN: Normal. OTHER FINDINGS: Single leadpacemaker IMPRESSION: Mild to moderate vascular congestion right greater than left
[2017-01-16] MEDS: Piperacillin/Tazobact 3.375 gm 100 ML IVPB SCH ×2 (11:39→18:00)
[2017-01-16] MEDS ORDERED: Morphine 4 mg/ml ISec IVP PRN (13:13)
--- NOTE | 2017-01-16 13:46 | PN ---
DATE: 01/16/2017 SUBJECTIVE: The patient is lying in bed, comfortable. He does admit to some perirectal pain from hi s surgery yesterday. He denies any nausea, vomiting. He is tolerating a diet. PHYSICAL EXAMINATION: VITAL SIGNS: Reveal temperature of 99.1, blood pressure 146/59, heart rate 67. ABDOMEN: Softly distended, nontender. LABORATORY DATA: Reveal white blood cell count 6.5, hemoglobin 9.5. Chemistries reveal normal elect rolytes. IMPRESSION: A 76-year-old male with large ischiorectal abscess, status post multiple surgeries inclu ding closure of one of his perirectal wounds yesterday with debridement of the larger wound with reso lving partial small bowel obstruction. RECOMMENDATIONS: Continue local wound care of his large perirectal abscess as per surgery. Bowen Mota MD cc: [phone] TT: 01/16/2017 13:46:04 Confirmation # [id number] Dictation # [id number] en
[2017-01-16] MEDS: Morphine 4 mg/ml ISec IVP PRN (20:45)
[2017-01-17] MEDS: Piperacillin/Tazobact 3.375 gm 100 ML IVPB SCH ×4 (00:04→17:45)
[2017-01-17] MEDS: Morphine 4 mg/ml ISec IVP PRN ×2 (02:34→19:43)
[2017-01-17 06:54] LABS: ADD MANUAL DIFF? NO
[2017-01-17 07:28] LABS: BASO # 0.02 K/mm3 (0.0-2.0); BASO % 0.4 % (0.0-3.0); EOS # 0.4 (0.0-0.7); EOS % 7.6 % (1.5-5.0); GRAN # 2.49 (1.4-6.5); GRAN % 46.5 % (50.0-68.0); HEMATOCRIT 27.8 % (42.0-52.0); LYMPH # 1.9 (1.2-3.4); LYMPH % 34.5 % (22.0-35.0); MEAN CELL VOLUME 93.3 fL (80.0-105.0); MEAN CORPUSCULAR HEMOGLOBIN 30.2 pg (25.0-35.0); MEAN CORPUSCULAR HGB CONC 32.4 g/dl (31.0-37.0); MEAN PLATELET VOLUME 10.5 fl (7.0-11.0); MONO # 0.6 (0.1-0.6); PLATELET COUNT 304 10^3/uL (120.0-450.0); RED CELL DISTRIBUTION WIDTH 15.8 % (11.5-14.5); WHITE BLOOD COUNT 5.4 10^3/ul (4.5-11.0)
[2017-01-17 08:01] LABS: ALB/GLOB RATIO 0.7 (1.1-1.8); ALKALINE PHOSPHATASE 46 U/L (38-133); ALT/SGPT 31 U/L (7-56); AST/SGOT 29 U/L (15-59); BILIRUBIN,TOTAL 0.5 mg/dL (0.2-1.3); BLOOD UREA NITROGEN 16 mg/dL (7-21); CALCIUM 8.1 mg/dL (8.4-10.5); CARBON DIOXIDE 31 mmol/L (21-33); CHLORIDE 102 mmol/L (98-107); GFR AFRICAN-AMERICAN > 60; GLUCOSE,RANDOM 107 mg/dL (70-110); MAGNESIUM 1.4 mg/dL (1.7-2.2); PHOSPHOROUS 3.5 mg/dL (2.5-4.5); POTASSIUM 3.8 mmol/L (3.6-5.0); SODIUM 135 mmol/L (132-148); TOTAL PROTEIN 5.2 g/dL (5.8-8.3)
--- NOTE | 2017-01-17 08:57 | CP.PCM.PN ---
Subjective - Date & Time of Evaluation Date of Evaluation: 01/17/17 Time of Evaluation: 08:52 - Subjective Subjective: Surgery: Dr. Pimentel Patient feeling better. Pain in rectal area improved. Denies fever overnight. Per nursing report, soiled overlying dressing was changed but packing remained clean and in place. Objective - Vital Signs/Intake and Output Vital Signs (last 24 hours): Temp Pulse Resp BP Pulse Ox 97.8 F 60 18 128/82 97 01/17/17 06:00 01/17/17 06:00 01/17/17 06:00 01/17/17 06:00 01/17/17 06:00 Intake and Output: 01/17/17 01/17/17 06:59 18:59 Intake Total 680 Output Total 2200 Balance -1520 - Medications Medications: Current Medications Acetaminophen (Tylenol 650mg/20.3ml Solution Ud) 650 mg GT Q4H PRN PRN Reason: Fever >100.4 F Last Admin: 01/16/17 00:04 Dose: 650 mg Albuterol/Ipratropium (Duoneb 3 Mg/0.5 Mg (3 Ml) Ud) 3 ml IH Q2H PRN PRN Reason: Shortness of Breath Last Admin: 01/13/17 08:32 Dose: 3 ml Alprazolam (Xanax) 0.5 mg PO TID PRN; Protocol PRN Reason: Anxiety Last Admin: 01/14/17 21:49 Dose: 0.5 mg Aspirin (Aspirin Chewable) 81 mg PO DAILY [facility] Last Admin: 01/16/17 09:57 Dose: 81 mg Diphenhydramine HCl (Benadryl) 25 mg PO HS PRN PRN Reason: Insomnia Last Admin: 01/17/17 00:08 Dose: 25 mg Ferrous Sulfate (Feosol) 324 mg PO TID [facility] Last Admin: 01/16/17 20:10 Dose: Not Given Heparin Sodium (Porcine) (Heparin) 5,000 units SC Q8 [facility] Last Admin: 01/17/17 06:11 Dose: 5,000 units Hydralazine HCl (Apresoline) 10 mg IVP Q6 PRN PRN Reason: FOR SBP>160 and Distolic>100 Last Admin: 01/15/17 17:49 Dose: 10 mg Hydrochlorothiazide (Hydrodiuril) 25 mg GT DAILY [facility] Last Admin: 01/16/17 09:57 Dose: 25 mg Piperacillin Sod/Tazobactam Sod (Zosyn 3.375 In Ns 100ml) 100 mls @ 200 mls/hr IVPB Q6 [facility] PRN Reason: Protocol Stop: 01/23/17 12:01 Last Admin: 01/17/17 06:11 Dose: 200 mls/hr Ketorolac Tromethamine (Toradol) 30 mg IVP Q6 PRN PRN Reason: Pain, moderate (4-7) Last Admin: 01/13/17 13:49 Dose: 30 mg Losartan Potassium (Cozaar) 100 mg GT DAILY [facility] Last Admin: 01/16/17 09:58 Dose: 100 mg Morphine Sulfate (Morphine) 4 mg IVP Q4H PRN PRN Reason: Pain, moderate (4-7) Last Admin: 01/17/17 02:34 Dose: 4 mg Morphine Sulfate (Morphine) 6 mg IVP Q4H PRN PRN Reason: Pain, severe (8-10) Multivitamins (Thera Tab) 1 tab PO DAILY [facility] Last Admin: 01/16/17 09:57 Dose: 1 tab Nystatin (Nystop Topical Powder) 0 gm TOP TID [facility] Last Admin: 01/16/17 18:00 Dose: 1 appl Ondansetron HCl (Zofran Inj) 4 mg IVP Q4H PRN PRN Reason: Nausea/Vomiting Last Admin: 01/06/17 21:58 Dose: 4 mg Ondansetron HCl (Zofran Inj) 4 mg IVP ONCE PRN PRN Reason: Nausea/Vomiting Povidone Iodine (Betadine 10% Topical Soln) 10 ml TOP QID PRN PRN Reason: Soiled packing Simethicone (Mylicon Chew Tab) 80 mg PO [facility] Last Admin: 01/16/17 22:30 Dose: 80 mg - Labs Labs: 01/17/17 06:30 01/17/17 06:30 PT 12.6 Seconds (9.9-11.8) H 01/10/17 12:30 INR 1.17 (0.93-1.08) H 01/10/17 12:30 APTT 33.4 Seconds (23.7-30.8) H 05/31/17 12:30 - Constitutional Appears: Well, Non-toxic, No Acute Distress - Head Exam Head Exam: ATRAUMATIC, NORMOCEPHALIC - Eye Exam Eye Exam: EOMI - ENT Exam ENT Exam: Mucous Membranes Moist - Respiratory Exam Respiratory Exam: NORMAL BREATHING PATTERN. absent: Respiratory Distress - Cardiovascular Exam Cardiovascular Exam: REGULAR RHYTHM. absent: Tachycardia - Rectal Exam Additional comments: zaira-rectal wound on left side, wound now partially delayed primarily closed. 1.5 x 2 cm open irregular boarder circular wound on the left inferior gluteal ridge with beefy red healthy tissue base showing. Wound tracks inferiorly, superiorly, and laterally about 3 cm with overlying tissue roof closed with vicryl sutures. Wound is about 2 cm deep. Skin edges appear healthy, no necrotic tissue. Silver tubular wound vac foam packed into wound inferiorly, deep and laterally. Overlying plastic seal placed. Wound vac attached and turned on to continuous suction. Successful placement with low leak rate. Assessment and Plan - Assessment and Plan (Free Text) Assessment: 76 y/o male w/ zaira-rectal abscess s/p I&D, debridement, and POD2 from further debridement and delayed partial primary closure Plan: -wound vac placed -would prefer at least 1 wound vac change by surgical team in about 3 days to ensure successful wound care and healing is achieved before patient is discharged -medical management per primary -reg diet -pain control -further recs per Dr. Loren Garner PGY1
--- NOTE | 2017-01-17 09:02 | CP.PCM.PN ---
Subjective - Date & Time of Evaluation Date of Evaluation: 01/17/17 Time of Evaluation: 08:58 - Subjective Subjective: Medicine progress note for Dr. Orantes/Dr. Sharpe service - Merlin Barragan PGY1 Patient seen and examined at bedside this morning. No acute overnight events or new complaints. No fevers reported. Denies chest pain, palpitations, SOB. Will discuss with complex case manager LTAC vs [facility] vs TCU placement. Objective - Vital Signs/Intake and Output Vital Signs (last 24 hours): Temp Pulse Resp BP Pulse Ox 97.8 F 60 18 128/82 97 01/17/17 06:00 01/17/17 06:00 01/17/17 06:00 01/17/17 06:00 01/17/17 06:00 Intake and Output: 01/17/17 01/17/17 06:59 18:59 Intake Total 680 Output Total 2200 Balance -1520 - Medications Medications: Current Medications Acetaminophen (Tylenol 650mg/20.3ml Solution Ud) 650 mg GT Q4H PRN PRN Reason: Fever >100.4 F Last Admin: 01/16/17 00:04 Dose: 650 mg Albuterol/Ipratropium (Duoneb 3 Mg/0.5 Mg (3 Ml) Ud) 3 ml IH Q2H PRN PRN Reason: Shortness of Breath Last Admin: 01/13/17 08:32 Dose: 3 ml Alprazolam (Xanax) 0.5 mg PO TID PRN; Protocol PRN Reason: Anxiety Last Admin: 01/14/17 21:49 Dose: 0.5 mg Aspirin (Aspirin Chewable) 81 mg PO DAILY [facility] Last Admin: 01/16/17 09:57 Dose: 81 mg Diphenhydramine HCl (Benadryl) 25 mg PO HS PRN PRN Reason: Insomnia Last Admin: 01/17/17 00:08 Dose: 25 mg Ferrous Sulfate (Feosol) 324 mg PO TID [facility] Last Admin: 01/16/17 20:10 Dose: Not Given Heparin Sodium (Porcine) (Heparin) 5,000 units SC Q8 [facility] Last Admin: 01/17/17 06:11 Dose: 5,000 units Hydralazine HCl (Apresoline) 10 mg IVP Q6 PRN PRN Reason: FOR SBP>160 and Distolic>100 Last Admin: 01/15/17 17:49 Dose: 10 mg Hydrochlorothiazide (Hydrodiuril) 25 mg GT DAILY [facility] Last Admin: 01/16/17 09:57 Dose: 25 mg Piperacillin Sod/Tazobactam Sod (Zosyn 3.375 In Ns 100ml) 100 mls @ 200 mls/hr IVPB Q6 [facility] PRN Reason: Protocol Stop: 01/23/17 12:01 Last Admin: 01/17/17 06:11 Dose: 200 mls/hr Ketorolac Tromethamine (Toradol) 30 mg IVP Q6 PRN PRN Reason: Pain, moderate (4-7) Last Admin: 01/13/17 13:49 Dose: 30 mg Losartan Potassium (Cozaar) 100 mg GT DAILY [facility] Last Admin: 01/16/17 09:58 Dose: 100 mg Morphine Sulfate (Morphine) 4 mg IVP Q4H PRN PRN Reason: Pain, moderate (4-7) Last Admin: 01/17/17 02:34 Dose: 4 mg Morphine Sulfate (Morphine) 6 mg IVP Q4H PRN PRN Reason: Pain, severe (8-10) Multivitamins (Thera Tab) 1 tab PO DAILY [facility] Last Admin: 01/16/17 09:57 Dose: 1 tab Nystatin (Nystop Topical Powder) 0 gm TOP TID [facility] Last Admin: 01/16/17 18:00 Dose: 1 appl Ondansetron HCl (Zofran Inj) 4 mg IVP Q4H PRN PRN Reason: Nausea/Vomiting Last Admin: 01/06/17 21:58 Dose: 4 mg Ondansetron HCl (Zofran Inj) 4 mg IVP ONCE PRN PRN Reason: Nausea/Vomiting Povidone Iodine (Betadine 10% Topical Soln) 10 ml TOP QID PRN PRN Reason: Soiled packing Simethicone (Mylicon Chew Tab) 80 mg PO [facility] Last Admin: 01/16/17 22:30 Dose: 80 mg - Labs Labs: 01/17/17 06:30 01/17/17 06:30 PT 12.6 Seconds (9.9-11.8) H 01/10/17 12:30 INR 1.17 (0.93-1.08) H 01/10/17 12:30 APTT 33.4 Seconds (23.7-30.8) H 01/10/17 12:30 - Constitutional Appears: Non-toxic, No Acute Distress - Head Exam Head Exam: ATRAUMATIC, NORMAL INSPECTION, NORMOCEPHALIC - Eye Exam Eye Exam: EOMI, PERRL - ENT Exam ENT Exam: Mucous Membranes Moist - Neck Exam Neck Exam: Normal Inspection - Respiratory Exam Respiratory Exam: Clear to Ausculation Bilateral. absent: Rales, Rhonchi, Wheezes - Cardiovascular Exam Cardiovascular Exam: RRR, +S1. absent: Gallop, Rubs, Murmur - GI/Abdominal Exam GI & Abdominal Exam: Soft. 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 Perirectal abscess -Patient is s/p previous surgical intervention and had repeated wound debridement yesterday (POD#2) -Antibiotics changed to Zosyn as per ID recommendations; Was also given 1 dose of vancomycin yesterday -Repeat blood cultures, urine cultures pending -Wound culture positive for Step milleri and Ecoli -Afebrile overnight, no leukocytosis -CXR reviewed -Continue with wound care as per surgery recommendations -Patient is pending LTAC vs [facility] vs TCU placement for further abx/wound care 2. Acute anemia likely multifactorial secondary to OR intervention and dilutional -Will continue to follow H/H and transfuse as necessary -No overt bleeding at this time -Patient to be transfused is Hgb below 7 or overt bleeding is present 3. Abdominal distension, resolving -Continue with simethicone 4. HAP, resolved -afebrile, no leukocytosis 5. 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 CAD w/ stents -continue ASA, hctz and cozaar 7. DVT and GI prophylaxis: protonix and VTE 8. Disposition -TCU vs [facility] vs LTAC once medically optimized Patient seen, examined, discussed with Dr. Orantes
[2017-01-17] MEDS: Simethicone 80 mg Chewtab PO SCH ×4 (10:09→22:23)
[2017-01-17] MEDS: Multivitamin Therapeutic Tab PO SCH (10:11)
[2017-01-17] MEDS: Nystatin 100,000 Units/gm Topical Pow(15 gm) TOP SCH ×3 (10:12→17:45)
--- NOTE | 2017-01-17 11:07 | CP.PCM.PN ---
Subjective - Date & Time of Evaluation Date of Evaluation: 01/17/17 Time of Evaluation: 09:00 - Subjective Subjective: Comfortable, less pain in the perirectal area, no fevers overnight, no abdominal pain. no nausea. Objective - Vital Signs/Intake and Output Vital Signs (last 24 hours): Temp Pulse Resp BP Pulse Ox 97.8 F 60 18 128/82 97 01/17/17 06:00 01/17/17 06:00 01/17/17 06:00 01/17/17 06:00 01/17/17 06:00 Intake and Output: 01/17/17 01/17/17 06:59 18:59 Intake Total 680 Output Total 2200 Balance -1520 - Medications Medications: Current Medications Acetaminophen (Tylenol 650mg/20.3ml Solution Ud) 650 mg GT Q4H PRN PRN Reason: Fever >100.4 F Last Admin: 01/16/17 00:04 Dose: 650 mg Albuterol/Ipratropium (Duoneb 3 Mg/0.5 Mg (3 Ml) Ud) 3 ml IH Q2H PRN PRN Reason: Shortness of Breath Last Admin: 01/13/17 08:32 Dose: 3 ml Alprazolam (Xanax) 0.5 mg PO TID PRN; Protocol PRN Reason: Anxiety Last Admin: 01/14/17 21:49 Dose: 0.5 mg Aspirin (Aspirin Chewable) 81 mg PO DAILY [facility] Last Admin: 01/16/17 09:57 Dose: 81 mg Diphenhydramine HCl (Benadryl) 25 mg PO HS PRN PRN Reason: Insomnia Last Admin: 01/17/17 00:08 Dose: 25 mg Ferrous Sulfate (Feosol) 324 mg PO TID [facility] Last Admin: 01/16/17 20:10 Dose: Not Given Heparin Sodium (Porcine) (Heparin) 5,000 units SC Q8 [facility] Last Admin: 01/17/17 06:11 Dose: 5,000 units Hydralazine HCl (Apresoline) 10 mg IVP Q6 PRN PRN Reason: FOR SBP>160 and Distolic>100 Last Admin: 01/15/17 17:49 Dose: 10 mg Hydrochlorothiazide (Hydrodiuril) 25 mg GT DAILY [facility] Last Admin: 01/16/17 09:57 Dose: 25 mg Piperacillin Sod/Tazobactam Sod (Zosyn 3.375 In Ns 100ml) 100 mls @ 200 mls/hr IVPB Q6 [facility] PRN Reason: Protocol Stop: 01/23/17 12:01 Last Admin: 01/17/17 06:11 Dose: 200 mls/hr Ketorolac Tromethamine (Toradol) 30 mg IVP Q6 PRN PRN Reason: Pain, moderate (4-7) Last Admin: 01/13/17 13:49 Dose: 30 mg Losartan Potassium (Cozaar) 100 mg GT DAILY [facility] Last Admin: 01/16/17 09:58 Dose: 100 mg Morphine Sulfate (Morphine) 4 mg IVP Q4H PRN PRN Reason: Pain, moderate (4-7) Last Admin: 01/17/17 02:34 Dose: 4 mg Morphine Sulfate (Morphine) 6 mg IVP Q4H PRN PRN Reason: Pain, severe (8-10) Multivitamins (Thera Tab) 1 tab PO DAILY [facility] Last Admin: 01/16/17 09:57 Dose: 1 tab Nystatin (Nystop Topical Powder) 0 gm TOP TID [facility] Last Admin: 01/16/17 18:00 Dose: 1 appl Ondansetron HCl (Zofran Inj) 4 mg IVP Q4H PRN PRN Reason: Nausea/Vomiting Last Admin: 01/06/17 21:58 Dose: 4 mg Ondansetron HCl (Zofran Inj) 4 mg IVP ONCE PRN PRN Reason: Nausea/Vomiting Povidone Iodine (Betadine 10% Topical Soln) 10 ml TOP QID PRN PRN Reason: Soiled packing Simethicone (Mylicon Chew Tab) 80 mg PO [facility] Last Admin: 01/16/17 22:30 Dose: 80 mg - Labs Labs: 01/17/17 06:30 01/17/17 06:30 PT 12.6 Seconds (9.9-11.8) H 01/10/17 12:30 INR 1.17 (0.93-1.08) H 01/10/17 12:30 APTT 33.4 Seconds (23.7-30.8) H 01/10/17 12:30 - Constitutional Appears: Non-toxic, No Acute Distress - Head Exam Head Exam: NORMAL INSPECTION - Neck Exam Neck Exam: absent: Meningismus - Respiratory Exam Respiratory Exam: Decreased Breath Sounds - Cardiovascular Exam Cardiovascular Exam: +S1, +S2 - GI/Abdominal Exam GI & Abdominal Exam: Soft. absent: Tenderness Assessment and Plan - Assessment and Plan (Free Text) Plan: Assessment Sepsis due to perirectal abscess S/P I and D POD #21, S/P repeat debridement POD #8, and partial closure and repeat debridement POD #2 - cx growing Strep milleri and E. coli; patient has post-op fever, R/O new onset sepsis lower lobe HCAP, resolved Abdominal distention consider bowel obstruction CAD S/P PCI prostate ca s/p robotic reconstruction 6 years ago GERD dyslipidemia history of 3rd degree AV block s/p permanent pacemaker placement history of dilated cardiomyopathy HTN history of back surgery S/P carotid endarterectomy Plan continue Zosyn pending repeat blood, urine cx, CXR There is plan for wound vacuum placement and we are awaiting this will continue to monitor clinically
--- NOTE | 2017-01-17 11:17 | PN ---
DATE: 01/17/2017 SUBJECTIVE: The patient is lying in bed on his left side. He feels better in terms of less perirect al discomfort. PHYSICAL EXAMINATION: VITAL SIGNS: Reveal temperature of 97, blood pressure 128/82, heart rate is 60. ABDOMEN: Soft, less distention, nontender. LABORATORY DATA: Reveal normal white count, hemoglobin of 9. IMPRESSION: A 76-year-old male with a large ischial rectal abscess, status post multiple drainage an d debridement procedures, as well as a closure of one perirectal wound with a small-bowel obstruction , which is clinically improving. The patient is tolerating solid foods. He denies any nausea, vomit ing or diarrhea. RECOMMENDATIONS: Continue surgical wound care, consider placement of a wound VAC in the perirectal w ound to help accelerate healing. Bowen Mota MD cc: [phone] TT: 01/17/2017 11:16:29 Confirmation # [id number] Dictation # [id number]
[2017-01-17] MEDS ORDERED: Morphine 4 mg/ml ISec IVP STA (14:18)
[2017-01-17] MEDS ORDERED: Magnesium Sulfate 2 GM in Sodium Chloride 0.9% 100 ML IVPB ONE (17:12)
--- NOTE | 2017-01-17 17:42 | PN ---
DATE: 01/17/2017 REASON FOR CONSULTATION AND FOLLOWUP: Status post rectal abscess drained, status post debridement, h istory of coronary artery disease. The patient denies any chest pain, shortness of breath, any palpitation. PHYSICAL EXAMINATION: VITAL SIGNS: Temperature afebrile, heart rate 60, blood pressure 128/82. HEENT: PERRLA. Extraocular muscles intact. NECK: Supple. No carotid bruits. No thyromegaly. CHEST: Clear to auscultation. HEART: S1, S2 regular. ABDOMEN: Soft. EXTREMITIES: Clubbing, cyanosis negative. BLOOD WORKUP: WBC 5. , hemoglobin 9.0, hematocrit 27.8, platelet count 304. Chemistry shows sod ium , potassium 3. , chloride of 102, carbon dioxide , anion gap of 6, BUN 16, creatini ne 1.1, magnesium 1.24. IMPRESSION: Hypomagnesemia, protein-calorie malnutrition, coronary artery disease, status post percu taneous transluminal coronary angioplasty of right coronary artery, is status post catheterization, p atent stent, status post permanent pacemaker. RECOMMENDATION: Increase nutritional support, supplement magnesium. Repeat electrolytes. Monitor e lectrolytes as needed. We will follow with you. Thank you, Dr. Orantes, for providing us the opportunity in taking care of the patient. Will follow with you. Gale Mora MD cc: [phone] TT: 01/17/2017 17:41:49 Confirmation # [id number] Dictation # [id number] en
[2017-01-17] MEDS: Magnesium Oxide 400 mg Tab UD PO SCH (17:44)
[2017-01-18] MEDS: Morphine 4 mg/ml ISec IVP PRN ×3 (00:14→21:55)
[2017-01-18] MEDS: Piperacillin/Tazobact 3.375 gm 100 ML IVPB SCH ×5 (00:15→23:51)
[2017-01-18] MEDS: Albuterol-Ipratrop 3 mg / 0.5 (3 ml) UD IH PRN (08:29)
--- NOTE | 2017-01-18 09:03 | CP.PCM.PN ---
<Merlin Barragan - Last Filed: 01/18/17 21:41> Subjective - Date & Time of Evaluation Date of Evaluation: 01/18/17 Time of Evaluation: 08:59 - Subjective Subjective: Medicine progress note for Dr. Orantes/Dr. Sharpe service - Merlin Barragan PGY1 Patient seen and examined at bedside this morning. No acute overnight events. Denied fever, chills, chest pain, SOB. Discussed with patient the logistics of LTACH placement vs TCU vs [facility]. Informed patient that insurance denied LTACH however we will attempt to contact the insurance physician overseeing the case and discuss with him. Objective - Vital Signs/Intake and Output Vital Signs (last 24 hours): Temp Pulse Resp BP Pulse Ox 98.2 F 56 L 18 155/59 H 95 01/18/17 06:00 01/18/17 06:00 01/18/17 06:00 01/18/17 06:00 01/18/17 06:00 Intake and Output: 01/18/17 01/18/17 06:59 18:59 Intake Total 200 Output Total 700 Balance -500 - Medications Medications: Current Medications Acetaminophen (Tylenol 650mg/20.3ml Solution Ud) 650 mg GT Q4H PRN PRN Reason: Fever >100.4 F Last Admin: 01/16/17 00:04 Dose: 650 mg Albuterol/Ipratropium (Duoneb 3 Mg/0.5 Mg (3 Ml) Ud) 3 ml IH Q2H PRN PRN Reason: Shortness of Breath Last Admin: 01/18/17 08:29 Dose: 3 ml Alprazolam (Xanax) 0.5 mg PO TID PRN; Protocol PRN Reason: Anxiety Last Admin: 01/14/17 21:49 Dose: 0.5 mg Aspirin (Aspirin Chewable) 81 mg PO DAILY [facility] Last Admin: 01/17/17 10:11 Dose: 81 mg Diphenhydramine HCl (Benadryl) 25 mg PO HS PRN PRN Reason: Insomnia Last Admin: 01/17/17 00:08 Dose: 25 mg Ferrous Sulfate (Feosol) 324 mg PO TID [facility] Last Admin: 01/17/17 17:44 Dose: 324 mg Heparin Sodium (Porcine) (Heparin) 5,000 units SC Q8 [facility] Last Admin: 01/18/17 06:09 Dose: 5,000 units Hydrochlorothiazide (Hydrodiuril) 25 mg GT DAILY [facility] Last Admin: 01/17/17 10:12 Dose: 25 mg Piperacillin Sod/Tazobactam Sod (Zosyn 3.375 In Ns 100ml) 100 mls @ 200 mls/hr IVPB Q6 [facility] PRN Reason: Protocol Stop: 01/23/17 12:01 Last Admin: 01/18/17 06:09 Dose: 200 mls/hr Ketorolac Tromethamine (Toradol) 30 mg IVP Q6 PRN PRN Reason: Pain, moderate (4-7) Last Admin: 01/13/17 13:49 Dose: 30 mg Losartan Potassium (Cozaar) 100 mg GT DAILY [facility] Last Admin: 01/17/17 10:12 Dose: 100 mg Magnesium Oxide (Mag-Ox) 400 mg PO BID [facility] Stop: 01/18/17 23:59 Last Admin: 01/17/17 17:44 Dose: 400 mg Morphine Sulfate (Morphine) 4 mg IVP Q4H PRN PRN Reason: Pain, moderate (4-7) Last Admin: 01/18/17 00:14 Dose: 4 mg Morphine Sulfate (Morphine) 6 mg IVP Q4H PRN PRN Reason: Pain, severe (8-10) Multivitamins (Thera Tab) 1 tab PO DAILY [facility] Last Admin: 01/17/17 10:11 Dose: 1 tab Nystatin (Nystop Topical Powder) 0 gm TOP TID [facility] Last Admin: 01/17/17 17:45 Dose: 1 appl Ondansetron HCl (Zofran Inj) 4 mg IVP Q4H PRN PRN Reason: Nausea/Vomiting Last Admin: 01/06/17 21:58 Dose: 4 mg Ondansetron HCl (Zofran Inj) 4 mg IVP ONCE PRN PRN Reason: Nausea/Vomiting Povidone Iodine (Betadine 10% Topical Soln) 10 ml TOP QID PRN PRN Reason: Soiled packing Simethicone (Mylicon Chew Tab) 80 mg PO [facility] Last Admin: 01/17/17 22:23 Dose: 80 mg - Labs Labs: 01/17/17 06:30 01/17/17 06:30 PT 12.6 Seconds (9.9-11.8) H 01/10/17 12:30 INR 1.17 (0.93-1.08) H 01/10/17 12:30 APTT 33.4 Seconds (23.7-30.8) H 01/10/17 12:30 - Constitutional Appears: Non-toxic, No Acute Distress - Head Exam Head Exam: ATRAUMATIC, NORMAL INSPECTION, NORMOCEPHALIC - Eye Exam Eye Exam: EOMI, PERRL - ENT Exam ENT Exam: Mucous Membranes Moist - Neck Exam Neck Exam: Normal Inspection - Respiratory Exam Respiratory Exam: Clear to Ausculation Bilateral. absent: Rales, Rhonchi, Wheezes - Cardiovascular Exam Cardiovascular Exam: RRR, +S1, +S2. absent: Gallop, Rubs, Murmur - GI/Abdominal Exam GI & Abdominal Exam: Soft. absent: Firm, Guarding, Rigid, Tenderness, Rebound - Neurological Exam Neurological Exam: Alert, Awake, Oriented x3 - Psychiatric Exam Psychiatric exam: Normal Affect, Normal Mood - Skin Skin Exam: Dry, Intact, Normal Color, Warm Assessment and Plan - Assessment and Plan (Free Text) Plan: 76yo male with history of hypertension, dilated cardiomyopathy, 3rd degree AV block s/p pace maker placement, prostate ca s/p robotic reconstruction surgery admitted for zaira-rectal abscess s/p surgical intervention 1. Perirectal abscess -Patient is s/p previous surgical intervention and had repeated wound debridement (POD#3) -Continue with zosyn as per ID recommendations -Blood cultures have thus far been negative -Repeat urine culture is negative -Wound vac placed by surgical team yesterday -Afebrile overnight, no leukocytosis -Patient denied LTACH approval by insurance company; Will discuss with case aide 2. Anemia -H/H has been stable -Patient previously required transfusion; will follow hgb and transfuse as necessary -No overt bleeding at this time 3. Abdominal distension, resolving -Continue with simethicone 4. 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 CAD w/ stents -continue ASA, hctz and cozaar 6. DVT and GI prophylaxis -SCD's/Protonix Patient seen, examined, discussed with Dr. Sharpe <Woody Sharpe - Last Filed: 01/25/17 19:28> Objective - Vital Signs/Intake and Output Vital Signs (last 24 hours): Temp Pulse Resp BP Pulse Ox 98.3 F 62 18 129/57 L 95 01/25/17 17:50 01/25/17 17:50 01/25/17 17:50 01/25/17 17:50 01/25/17 06:00 Intake and Output: 01/25/17 01/26/17 18:59 06:59 Intake Total 200 Output Total 400 Balance -200 - Labs Labs: 01/22/17 06:00 01/22/17 06:00 PT 12.6 Seconds (9.9-11.8) H 01/10/17 12:30 INR 1.17 (0.93-1.08) H 01/10/17 12:30 APTT 33.4 Seconds (23.7-30.8) H 01/10/17 12:30 Attending/Attestation - Attestation I have personally seen and examined this patient.: Yes I have fully participated in the care of the patient.: Yes I have reviewed all pertinent clinical information, including history, physical exam and plan: Yes Notes (Text): 01/25/17 19:28 Medical record note made by the resident after discussion with my direction and input after the patient was personally seen and examined by me. I have reviewed the chart and agree that the record accurately reflects by personal performance of the history, physical exam, data review, and medical decision-making, in the course for the patient. I have also personally directed the plan of care.
[2017-01-18] MEDS: Simethicone 80 mg Chewtab PO SCH ×4 (09:59→21:55)
[2017-01-18] MEDS: Magnesium Oxide 400 mg Tab UD PO SCH ×2 (09:59→17:54)
[2017-01-18] MEDS: Multivitamin Therapeutic Tab PO SCH (09:59)
--- NOTE | 2017-01-18 10:16 | PN ---
DATE: 01/18/2017 SUBJECTIVE: The patient is lying in bed, comfortable. He had a wound VAC placed into his ischiorect al abscess cavity yesterday. He denies any nausea, vomiting. He is tolerating solid foods. He han es any diarrhea. PHYSICAL EXAMINATION: VITAL SIGNS: Reveal temperature of 98.2, blood pressure 155/59, heart rate 56. ABDOMEN: Softly distended, nontender, no guarding. LABORATORY DATA: Reveal hemoglobin of 9 from yesterday. No new blood work is available from today. IMPRESSION: A 76-year-old male with a large left ischiorectal abscess, status post multiple drainage and debridement procedures, complicated by a partial small bowel obstruction. The patient had a wou nd VAC placed in the abscess cavity yesterday. He is stable from a GI standpoint. RECOMMENDATIONS: Continue surgical management of the left ischiorectal abscess. Bowen Mota MD cc: [phone] TT: 01/18/2017 10:15:41 Confirmation # [id number] Dictation # [id number] en
--- NOTE | 2017-01-18 11:09 | CP.PCM.PN ---
Subjective - Date & Time of Evaluation Date of Evaluation: 01/18/17 Time of Evaluation: 11:06 - Subjective Subjective: Surgery: Dr. Steve Patient doing well today. Some soiling of the wound vac last night so wound vac to be changed today. He is tolerating diet. Denies diarrhea, f/c/n/v. Objective - Vital Signs/Intake and Output Vital Signs (last 24 hours): Temp Pulse Resp BP Pulse Ox 98.2 F 56 L 18 155/59 H 95 01/18/17 06:00 01/18/17 06:00 01/18/17 06:00 01/18/17 06:00 01/18/17 06:00 Intake and Output: 01/18/17 01/18/17 06:59 18:59 Intake Total 200 Output Total 700 Balance -500 - Medications Medications: Current Medications Acetaminophen (Tylenol 650mg/20.3ml Solution Ud) 650 mg GT Q4H PRN PRN Reason: Fever >100.4 F Last Admin: 01/16/17 00:04 Dose: 650 mg Albuterol/Ipratropium (Duoneb 3 Mg/0.5 Mg (3 Ml) Ud) 3 ml IH Q2H PRN PRN Reason: Shortness of Breath Last Admin: 01/18/17 08:29 Dose: 3 ml Alprazolam (Xanax) 0.5 mg PO TID PRN; Protocol PRN Reason: Anxiety Last Admin: 01/14/17 21:49 Dose: 0.5 mg Aspirin (Aspirin Chewable) 81 mg PO DAILY [facility] Last Admin: 01/18/17 10:00 Dose: 81 mg Diphenhydramine HCl (Benadryl) 25 mg PO HS PRN PRN Reason: Insomnia Last Admin: 01/17/17 00:08 Dose: 25 mg Ferrous Sulfate (Feosol) 324 mg PO TID [facility] Last Admin: 01/18/17 09:59 Dose: 324 mg Heparin Sodium (Porcine) (Heparin) 5,000 units SC Q8 [facility] Last Admin: 01/18/17 06:09 Dose: 5,000 units Hydrochlorothiazide (Hydrodiuril) 25 mg GT DAILY [facility] Last Admin: 01/18/17 09:58 Dose: 25 mg Piperacillin Sod/Tazobactam Sod (Zosyn 3.375 In Ns 100ml) 100 mls @ 200 mls/hr IVPB Q6 [facility] PRN Reason: Protocol Stop: 01/23/17 12:01 Last Admin: 01/18/17 06:09 Dose: 200 mls/hr Ketorolac Tromethamine (Toradol) 30 mg IVP Q6 PRN PRN Reason: Pain, moderate (4-7) Last Admin: 01/13/17 13:49 Dose: 30 mg Losartan Potassium (Cozaar) 100 mg GT DAILY [facility] Last Admin: 01/18/17 09:59 Dose: 100 mg Magnesium Oxide (Mag-Ox) 400 mg PO BID [facility] Stop: 01/18/17 23:59 Last Admin: 01/18/17 09:59 Dose: 400 mg Morphine Sulfate (Morphine) 4 mg IVP Q4H PRN PRN Reason: Pain, moderate (4-7) Last Admin: 01/18/17 09:57 Dose: 4 mg Morphine Sulfate (Morphine) 6 mg IVP Q4H PRN PRN Reason: Pain, severe (8-10) Multivitamins (Thera Tab) 1 tab PO DAILY [facility] Last Admin: 01/18/17 09:59 Dose: 1 tab Nystatin (Nystop Topical Powder) 0 gm TOP TID [facility] Last Admin: 01/17/17 17:45 Dose: 1 appl Ondansetron HCl (Zofran Inj) 4 mg IVP Q4H PRN PRN Reason: Nausea/Vomiting Last Admin: 01/06/17 21:58 Dose: 4 mg Ondansetron HCl (Zofran Inj) 4 mg IVP ONCE PRN PRN Reason: Nausea/Vomiting Povidone Iodine (Betadine 10% Topical Soln) 10 ml TOP QID PRN PRN Reason: Soiled packing Simethicone (Mylicon Chew Tab) 80 mg PO [facility] Last Admin: 01/18/17 09:59 Dose: 80 mg - Labs Labs: 01/17/17 06:30 01/17/17 06:30 PT 12.6 Seconds (9.9-11.8) H 01/10/17 12:30 INR 1.17 (0.93-1.08) H 01/10/17 12:30 APTT 33.4 Seconds (23.7-30.8) H 01/10/17 12:30 - Constitutional Appears: Non-toxic, No Acute Distress - Head Exam Head Exam: ATRAUMATIC, NORMOCEPHALIC - Eye Exam Eye Exam: EOMI, Normal appearance - ENT Exam ENT Exam: Mucous Membranes Moist - Respiratory Exam Respiratory Exam: NORMAL BREATHING PATTERN. absent: Respiratory Distress - Cardiovascular Exam Cardiovascular Exam: REGULAR RHYTHM. absent: Tachycardia - Rectal Exam Additional comments: wound vac with mild soiling so wound vac changed today. suture lines of partial wound closure with health skin edges well approximated. 1.5 x 2 cm open irregular boarder triangular-shaped wound on the left inferior gluteal ridge with beefy red healthy tissue base showing. Wound tracks inferiorly, deep and laterally about 2 cm with overlying tissue roof closed with vicryl sutures. Skin edges appear healthy, no necrotic tissue. Silver tubular wound vac foam packed into wound inferiorly, deep and laterally. Overlying plastic seal placed. Wound vac attached and turned on to continuous suction. Successful placement with low leak rate. Assessment and Plan - Assessment and Plan (Free Text) Assessment: 76 y/o male w/ zaira-rectal abscess s/p I&D, debridement, and POD3 from further debridement and delayed partial primary closure Plan: -wound vac replaced with good seal -not necessary to bridge wound vac attachment due to patient's preference of lateral recumbent -medical management per primary -reg diet -pain control -patient seen and examined with Dr. Loren Garner PGY1
--- NOTE | 2017-01-18 11:09 | PN ---
DATE: 01/18/2017 The patient is in bed in no acute distress, nontoxic. No fevers and chills. The patient was seen ea rlier this morning. PHYSICAL EXAMINATION: VITAL SIGNS: Temperature is 98, blood pressure is 150/70, respiratory rate of 16. HEENT: Unremarkable. NECK: Supple. LUNGS: Have decreased breath sounds. HEART: Normal S1, S2. ABDOMEN: Soft, nontender. LABORATORY EXAMINATION: Reveals a white count of 5.4, hemoglobin of 9, platelets of 304. Coagulatio n is noted. Chemistries reveal the BUN of 16, creatinine of 1.1. Procalcitonin is 0.11. Microbiolo gy is noted to have E. coli and strep intermedius/milleri. Review of the orders reveals the patient to be on Zosyn. ASSESSMENT AND PLAN: A 76-year-old with sepsis due to perirectal abscess, status post incision and d rainage, postoperative day 22, repeat debridement, postoperative day #9, partial closure and repeat d [id number], postoperative day #3 currently on Zosyn, in a patient with a history of coronary artery disease, dyslipidemia, third degree AV block with a pacemaker, dilated cardiomyopathy, hypertension. We will follow closely with you. Guillaume Spence MD cc: 350 TT: 01/18/2017 11:09:40 Confirmation # [id number] Dictation # [id number]
[2017-01-18] MEDS: Nystatin 100,000 Units/gm Topical Pow(15 gm) TOP SCH ×3 (11:30→17:55)
--- NOTE | 2017-01-18 20:58 | PN ---
DATE: 01/18/2017 REASON FOR FOLLOWUP: Status post rectal abscess, drained, status post debridement. BRIEF CLINICAL HISTORY: The patient is lying flat. Denies any chest pain, shortness of breath, any palpitation. PHYSICAL EXAMINATION: VITAL SIGNS: Temperature afebrile, heart rate 64, blood pressure 147/54. HEENT: PERRLA. Extraocular muscles intact. NECK: Supple. No carotid bruits. No thyromegaly. CHEST: Clear to auscultation. HEART: S1, S2 regular. ABDOMEN: Soft. EXTREMITIES: Clubbing and cyanosis negative. LABORATORY DATA: Blood workup as follows: WBC ____, hemoglobin 9, hematocrit 27.8, platelet count 3 04. Chemistry shows sodium 134, potassium ____, chloride 102, carbon dioxide 31, anion gap of ____, BUN 16, creatinine 1.1. Albumin 2.2. IMPRESSION: Protein calorie malnutrition, was not present on admission, anemia, rectal abscess debri nikc, coronary artery disease ____ pacemaker. RECOMMENDATION: Increase nutritional support. Continue wound care, supplement electrolytes, monitor electrolytes, monitor ____ . Also added multivitamin, iron preparation. We will follow with you. Thank you, Dr. Orantes, for providing us the opportunity in taking care of the patient. Follow up l ab in the morning. Gale Mora MD cc: [id number] TT: 01/18/2017 20:58:26 Confirmation # [id number] Dictation # [id number] jeff
[2017-01-19] MEDS: Piperacillin/Tazobact 3.375 gm 100 ML IVPB SCH ×3 (05:47→18:02)
[2017-01-19 06:46] LABS: ADD MANUAL DIFF? NO
[2017-01-19 07:07] LABS: BASO # 0.04 K/mm3 (0.0-2.0); BASO % 0.7 % (0.0-3.0); EOS # 0.4 (0.0-0.7); EOS % 6.2 % (1.5-5.0); GRAN # 3.07 (1.4-6.5); GRAN % 51.6 % (50.0-68.0); HEMATOCRIT 30.7 % (42.0-52.0); LYMPH # 1.9 (1.2-3.4); LYMPH % 31.9 % (22.0-35.0); MEAN CELL VOLUME 92.7 fL (80.0-105.0); MEAN CORPUSCULAR HEMOGLOBIN 29.9 pg (25.0-35.0); MEAN CORPUSCULAR HGB CONC 32.2 g/dl (31.0-37.0); MEAN PLATELET VOLUME 10.6 fl (7.0-11.0); MONO # 0.6 (0.1-0.6); MONO % 9.6 % (1.0-6.0); PLATELET COUNT 324 10^3/uL (120.0-450.0); RED CELL DISTRIBUTION WIDTH 15.4 % (11.5-14.5)
[2017-01-19 07:18] LABS: ALB/GLOB RATIO 0.8 (1.1-1.8); ALKALINE PHOSPHATASE 57 U/L (38-133); ALT/SGPT 32 U/L (7-56); AST/SGOT 31 U/L (15-59); BILIRUBIN,TOTAL 0.5 mg/dL (0.2-1.3); BLOOD UREA NITROGEN 17 mg/dL (7-21); CARBON DIOXIDE 31 mmol/L (21-33); CHLORIDE 101 mmol/L (95-110); GFR AFRICAN-AMERICAN > 60; GLUCOSE,RANDOM 125 mg/dL (70-110); MAGNESIUM 1.6 mg/dL (1.7-2.2); PHOSPHOROUS 3.8 mg/dL (2.5-4.5); POTASSIUM 3.7 mmol/L (3.6-5.0); SODIUM 137 mmol/L (132-148); TOTAL PROTEIN 5.9 g/dL (5.8-8.3)
--- NOTE | 2017-01-19 08:31 | CP.PCM.PN ---
Subjective - Date & Time of Evaluation Date of Evaluation: 01/19/17 Time of Evaluation: 08:29 - Subjective Subjective: Surgery: Dr. Steve Patient doing well today. Had a BM last night requiring wound vac change. As of this morning, clean and dry w/o leak. Objective - Vital Signs/Intake and Output Vital Signs (last 24 hours): Temp Pulse Resp BP Pulse Ox 99.0 F 63 20 160/68 H 94 L 01/19/17 06:00 01/19/17 06:00 01/19/17 06:00 01/19/17 06:00 01/19/17 06:00 Intake and Output: 01/19/17 01/19/17 06:59 18:59 Intake Total 1060 Output Total 2050 Balance -990 - Medications Medications: Current Medications Acetaminophen (Tylenol 650mg/20.3ml Solution Ud) 650 mg GT Q4H PRN PRN Reason: Fever >100.4 F Last Admin: 01/16/17 00:04 Dose: 650 mg Albuterol/Ipratropium (Duoneb 3 Mg/0.5 Mg (3 Ml) Ud) 3 ml IH Q2H PRN PRN Reason: Shortness of Breath Last Admin: 01/18/17 08:29 Dose: 3 ml Alprazolam (Xanax) 0.5 mg PO TID PRN; Protocol PRN Reason: Anxiety Last Admin: 01/14/17 21:49 Dose: 0.5 mg Aspirin (Aspirin Chewable) 81 mg PO DAILY [facility] Last Admin: 01/18/17 10:00 Dose: 81 mg Diphenhydramine HCl (Benadryl) 25 mg PO HS PRN PRN Reason: Insomnia Last Admin: 01/18/17 23:31 Dose: 25 mg Ferrous Sulfate (Feosol) 324 mg PO TID [facility] Last Admin: 01/18/17 17:54 Dose: 324 mg Heparin Sodium (Porcine) (Heparin) 5,000 units SC Q8 [facility] Last Admin: 01/19/17 06:07 Dose: 5,000 units Hydrochlorothiazide (Hydrodiuril) 25 mg GT DAILY [facility] Last Admin: 01/18/17 09:58 Dose: 25 mg Piperacillin Sod/Tazobactam Sod (Zosyn 3.375 In Ns 100ml) 100 mls @ 200 mls/hr IVPB Q6 [facility] PRN Reason: Protocol Stop: 01/23/17 12:01 Last Admin: 01/19/17 05:47 Dose: 200 mls/hr Ketorolac Tromethamine (Toradol) 30 mg IVP Q6 PRN PRN Reason: Pain, moderate (4-7) Last Admin: 01/13/17 13:49 Dose: 30 mg Losartan Potassium (Cozaar) 100 mg GT DAILY [facility] Last Admin: 01/18/17 09:59 Dose: 100 mg Morphine Sulfate (Morphine) 4 mg IVP Q4H PRN PRN Reason: Pain, moderate (4-7) Last Admin: 01/18/17 21:55 Dose: 4 mg Morphine Sulfate (Morphine) 6 mg IVP Q4H PRN PRN Reason: Pain, severe (8-10) Multivitamins (Thera Tab) 1 tab PO DAILY [facility] Last Admin: 01/18/17 09:59 Dose: 1 tab Nystatin (Nystop Topical Powder) 0 gm TOP TID [facility] Last Admin: 01/18/17 17:55 Dose: 1 appl Ondansetron HCl (Zofran Inj) 4 mg IVP Q4H PRN PRN Reason: Nausea/Vomiting Last Admin: 01/06/17 21:58 Dose: 4 mg Ondansetron HCl (Zofran Inj) 4 mg IVP ONCE PRN PRN Reason: Nausea/Vomiting Povidone Iodine (Betadine 10% Topical Soln) 10 ml TOP QID PRN PRN Reason: Soiled packing Simethicone (Mylicon Chew Tab) 80 mg PO [facility] Last Admin: 01/18/17 21:55 Dose: 80 mg - Labs Labs: 01/19/17 06:30 01/19/17 06:30 PT 12.6 Seconds (9.9-11.8) H 01/10/17 12:30 INR 1.17 (0.93-1.08) H 01/10/17 12:30 APTT 33.4 Seconds (23.7-30.8) H 01/10/17 12:30 - Constitutional Appears: Non-toxic, No Acute Distress - Head Exam Head Exam: ATRAUMATIC, NORMOCEPHALIC - Eye Exam Eye Exam: EOMI, Normal appearance - ENT Exam ENT Exam: Mucous Membranes Moist - Respiratory Exam Respiratory Exam: NORMAL BREATHING PATTERN. absent: Respiratory Distress - Cardiovascular Exam Cardiovascular Exam: REGULAR RHYTHM. absent: Tachycardia - Rectal Exam Additional comments: wound vac in place, good seal but small leak present w/ manipulation of wound vac tegaderm. Mastisol place on medial gluteal boarder of wound and new wound vac sealing plastic placed over. NO leak noted. Assessment and Plan - Assessment and Plan (Free Text) Assessment: 76 y/o male w/ zaira-rectal abscess s/p I&D, debridement, and POD4 from further debridement and delayed partial primary closure Plan: -wound vac with good seal after Mastisol application -not necessary to bridge wound vac attachment due to patient's preference of lateral recumbent positition -medical management per primary -reg diet -pain control -further recs per Dr. Loren Garner PGY1
[2017-01-19] MEDS: Multivitamin Therapeutic Tab PO SCH (09:59)
[2017-01-19] MEDS: Nystatin 100,000 Units/gm Topical Pow(15 gm) TOP SCH ×3 (09:59→18:02)
[2017-01-19] MEDS: Simethicone 80 mg Chewtab PO SCH ×4 (09:59→21:24)
[2017-01-19] MEDS: Morphine 4 mg/ml ISec IVP PRN (10:01)
--- NOTE | 2017-01-19 10:39 | CP.PCM.PN ---
Subjective - Date & Time of Evaluation Date of Evaluation: 01/19/17 Time of Evaluation: 09:00 - Subjective Subjective: Still with pain in the perirectal area, yesterday the seal of the wound vacuum had to be changed because there was soiling, no fevers overnight. Objective - Vital Signs/Intake and Output Vital Signs (last 24 hours): Temp Pulse Resp BP Pulse Ox 99.0 F 63 20 160/68 H 94 L 01/19/17 06:00 01/19/17 06:00 01/19/17 06:00 01/19/17 06:00 01/19/17 06:00 Intake and Output: 01/19/17 01/19/17 06:59 18:59 Intake Total 1060 Output Total 2050 Balance -990 - Medications Medications: Current Medications Acetaminophen (Tylenol 650mg/20.3ml Solution Ud) 650 mg GT Q4H PRN PRN Reason: Fever >100.4 F Last Admin: 01/16/17 00:04 Dose: 650 mg Albuterol/Ipratropium (Duoneb 3 Mg/0.5 Mg (3 Ml) Ud) 3 ml IH Q2H PRN PRN Reason: Shortness of Breath Last Admin: 01/18/17 08:29 Dose: 3 ml Alprazolam (Xanax) 0.5 mg PO TID PRN; Protocol PRN Reason: Anxiety Last Admin: 01/14/17 21:49 Dose: 0.5 mg Aspirin (Aspirin Chewable) 81 mg PO DAILY [facility] Last Admin: 01/18/17 10:00 Dose: 81 mg Diphenhydramine HCl (Benadryl) 25 mg PO HS PRN PRN Reason: Insomnia Last Admin: 01/18/17 23:31 Dose: 25 mg Ferrous Sulfate (Feosol) 324 mg PO TID [facility] Last Admin: 01/18/17 17:54 Dose: 324 mg Heparin Sodium (Porcine) (Heparin) 5,000 units SC Q8 [facility] Last Admin: 01/19/17 06:07 Dose: 5,000 units Hydrochlorothiazide (Hydrodiuril) 25 mg GT DAILY [facility] Last Admin: 01/18/17 09:58 Dose: 25 mg Piperacillin Sod/Tazobactam Sod (Zosyn 3.375 In Ns 100ml) 100 mls @ 200 mls/hr IVPB Q6 [facility] PRN Reason: Protocol Stop: 01/23/17 12:01 Last Admin: 01/19/17 05:47 Dose: 200 mls/hr Ketorolac Tromethamine (Toradol) 30 mg IVP Q6 PRN PRN Reason: Pain, moderate (4-7) Last Admin: 01/13/17 13:49 Dose: 30 mg Losartan Potassium (Cozaar) 100 mg GT DAILY [facility] Last Admin: 01/18/17 09:59 Dose: 100 mg Morphine Sulfate (Morphine) 4 mg IVP Q4H PRN PRN Reason: Pain, moderate (4-7) Last Admin: 01/18/17 21:55 Dose: 4 mg Morphine Sulfate (Morphine) 6 mg IVP Q4H PRN PRN Reason: Pain, severe (8-10) Multivitamins (Thera Tab) 1 tab PO DAILY [facility] Last Admin: 01/18/17 09:59 Dose: 1 tab Nystatin (Nystop Topical Powder) 0 gm TOP TID [facility] Last Admin: 01/18/17 17:55 Dose: 1 appl Ondansetron HCl (Zofran Inj) 4 mg IVP Q4H PRN PRN Reason: Nausea/Vomiting Last Admin: 01/06/17 21:58 Dose: 4 mg Ondansetron HCl (Zofran Inj) 4 mg IVP ONCE PRN PRN Reason: Nausea/Vomiting Povidone Iodine (Betadine 10% Topical Soln) 10 ml TOP QID PRN PRN Reason: Soiled packing Simethicone (Mylicon Chew Tab) 80 mg PO [facility] Last Admin: 01/18/17 21:55 Dose: 80 mg - Labs Labs: 01/19/17 06:30 01/19/17 06:30 PT 12.6 Seconds (9.9-11.8) H 01/10/17 12:30 INR 1.17 (0.93-1.08) H 01/10/17 12:30 APTT 33.4 Seconds (23.7-30.8) H 01/10/17 12:30 - Constitutional Appears: Non-toxic, No Acute Distress - Head Exam Head Exam: NORMAL INSPECTION - ENT Exam ENT Exam: Mucous Membranes Moist - Neck Exam Neck Exam: absent: Lymphadenopathy, Meningismus - Respiratory Exam Respiratory Exam: Decreased Breath Sounds - Cardiovascular Exam Cardiovascular Exam: +S1, +S2 - GI/Abdominal Exam GI & Abdominal Exam: Soft. absent: Tenderness Assessment and Plan - Assessment and Plan (Free Text) Plan: Assessment Sepsis due to perirectal abscess S/P I and D POD #23, S/P repeat debridement POD #10, and partial closure and repeat debridement POD #4 - cx growing Strep milleri and E. coli; S/P wound vacuum placement POD #2 lower lobe HCAP, resolved Abdominal distention consider bowel obstruction CAD S/P PCI prostate ca s/p robotic reconstruction 6 years ago GERD dyslipidemia history of 3rd degree AV block s/p permanent pacemaker placement history of dilated cardiomyopathy HTN history of back surgery S/P carotid endarterectomy Plan continue Zosyn pending for now - continue to monitor wound vacuum output will continue to monitor clinically
--- NOTE | 2017-01-19 10:43 | CP.PCM.PN ---
Subjective - Date & Time of Evaluation Date of Evaluation: 01/19/17 Time of Evaluation: 10:40 - Subjective Subjective: Medicine progress note for Dr. Orantes/Dr. Sharpe service - Merlin Yung PGY1 Patient seen and examined at bedside this morning. No acute overnight events or new complaints. Patient was denied LTACH by his insurance company. Call was placed by Dr. Sharpe to patient's insurance company for peer to peer communication and left a voicemail, however no return call received. Patient may need to consider subacute rehab options. Otherwise, no new issues. Wound vac in placed. Objective - Vital Signs/Intake and Output Vital Signs (last 24 hours): Temp Pulse Resp BP Pulse Ox 99.0 F 63 20 160/68 H 94 L 01/19/17 06:00 01/19/17 06:00 01/19/17 06:00 01/19/17 06:00 01/19/17 06:00 Intake and Output: 01/19/17 01/19/17 06:59 18:59 Intake Total 1060 Output Total 2050 Balance -990 - Medications Medications: Current Medications Acetaminophen (Tylenol 650mg/20.3ml Solution Ud) 650 mg GT Q4H PRN PRN Reason: Fever >100.4 F Last Admin: 01/16/17 00:04 Dose: 650 mg Albuterol/Ipratropium (Duoneb 3 Mg/0.5 Mg (3 Ml) Ud) 3 ml IH Q2H PRN PRN Reason: Shortness of Breath Last Admin: 01/18/17 08:29 Dose: 3 ml Alprazolam (Xanax) 0.5 mg PO TID PRN; Protocol PRN Reason: Anxiety Last Admin: 01/14/17 21:49 Dose: 0.5 mg Aspirin (Aspirin Chewable) 81 mg PO DAILY [facility] Last Admin: 01/19/17 09:59 Dose: 81 mg Diphenhydramine HCl (Benadryl) 25 mg PO HS PRN PRN Reason: Insomnia Last Admin: 01/18/17 23:31 Dose: 25 mg Ferrous Sulfate (Feosol) 324 mg PO TID [facility] Last Admin: 01/19/17 09:59 Dose: 324 mg Heparin Sodium (Porcine) (Heparin) 5,000 units SC Q8 [facility] Last Admin: 01/19/17 06:07 Dose: 5,000 units Hydrochlorothiazide (Hydrodiuril) 25 mg GT DAILY [facility] Last Admin: 01/19/17 09:59 Dose: 25 mg Piperacillin Sod/Tazobactam Sod (Zosyn 3.375 In Ns 100ml) 100 mls @ 200 mls/hr IVPB Q6 [facility]ANNE PRN Reason: Protocol Stop: 01/23/17 12:01 Last Admin: 01/19/17 05:47 Dose: 200 mls/hr Ketorolac Tromethamine (Toradol) 30 mg IVP Q6 PRN PRN Reason: Pain, moderate (4-7) Last Admin: 01/13/17 13:49 Dose: 30 mg Losartan Potassium (Cozaar) 100 mg GT DAILY [facility] Last Admin: 01/19/17 09:59 Dose: 100 mg Morphine Sulfate (Morphine) 4 mg IVP Q4H PRN PRN Reason: Pain, moderate (4-7) Last Admin: 01/19/17 10:01 Dose: 4 mg Morphine Sulfate (Morphine) 6 mg IVP Q4H PRN PRN Reason: Pain, severe (8-10) Multivitamins (Thera Tab) 1 tab PO DAILY [facility] Last Admin: 01/19/17 09:59 Dose: 1 tab Nystatin (Nystop Topical Powder) 0 gm TOP TID [facility] Last Admin: 01/19/17 09:59 Dose: 1 appl Ondansetron HCl (Zofran Inj) 4 mg IVP Q4H PRN PRN Reason: Nausea/Vomiting Last Admin: 01/06/17 21:58 Dose: 4 mg Ondansetron HCl (Zofran Inj) 4 mg IVP ONCE PRN PRN Reason: Nausea/Vomiting Povidone Iodine (Betadine 10% Topical Soln) 10 ml TOP QID PRN PRN Reason: Soiled packing Simethicone (Mylicon Chew Tab) 80 mg PO [facility] Last Admin: 01/19/17 09:59 Dose: 80 mg - Labs Labs: 01/19/17 06:30 01/19/17 06:30 PT 12.6 Seconds (9.9-11.8) H 01/10/17 12:30 INR 1.17 (0.93-1.08) H 01/10/17 12:30 APTT 33.4 Seconds (23.7-30.8) H 01/10/17 12:30 - Constitutional Appears: Non-toxic, No Acute Distress - Head Exam Head Exam: ATRAUMATIC, NORMAL INSPECTION, NORMOCEPHALIC - Eye Exam Eye Exam: EOMI, PERRL - ENT Exam ENT Exam: Mucous Membranes Moist - Respiratory Exam Respiratory Exam: Clear to Ausculation Bilateral. absent: Rales, Rhonchi, Wheezes - Cardiovascular Exam Cardiovascular Exam: RRR, +S1, +S2. absent: Gallop, Rubs, Murmur - GI/Abdominal Exam GI & Abdominal Exam: Distended, Soft. absent: Firm, Guarding, Rigid, Tenderness , Rebound - Neurological Exam Neurological Exam: Alert, Awake, Oriented x3 - Psychiatric Exam Psychiatric exam: Normal Affect, Normal Mood - Skin Skin Exam: Dry, Intact, Normal Color, Warm Assessment and Plan - Assessment and Plan (Free Text) Plan: 76yo male with history of hypertension, dilated cardiomyopathy, 3rd degree AV block s/p pace maker placement, prostate ca s/p robotic reconstruction surgery admitted for zaira-rectal abscess s/p surgical intervention 1. Perirectal abscess -Patient is s/p previous surgical intervention and had repeated wound debridement (POD#4) -Continue with zosyn as per ID recommendations -Blood cultures negative -Repeat urine culture is negative -Wound vac in place; being followed by surgical team -Afebrile, no leukocytosis 2. Anemia -H/H has been stable -Patient previously required transfusion; will follow hgb and transfuse as necessary -No overt bleeding at this time 3. Abdominal distension, resolving -Continue with simethicone 4. 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 CAD w/ stents -continue ASA, hctz and cozaar 6. DVT and GI prophylaxis -SCD's/Protonix 7. Disposition -Patient has been denied LTACH approval by his insurance company. May need to consider subacute rehab options. Will discuss with bilingual patient support caseworker. Patient seen, examined, discussed with Dr. Orantes
[2017-01-19] MEDS ORDERED: Potassium Chloride 20 mEq ER Tab PO ONE (17:44)
--- NOTE | 2017-01-19 19:58 | PN ---
DATE: 01/19/2017 REASON FOR CONSULTATION AND FOLLOWUP: Status post rectal abscess, drained, status post debridement. BRIEF CLINICAL HISTORY: This is a 76-year-old male with past medical history of coronary artery dise ase, status post PTCA, status post permanent pacemaker, admitted with rectal abscess. Denies any dory st pain, shortness of breath, any palpitation. PHYSICAL EXAMINATION: VITAL SIGNS: Temperature afebrile, heart rate ____, blood pressure 147/65. HEENT: PERRLA. Extraocular muscles intact. NECK: Supple. No carotid bruit. No thyromegaly. CHEST: Clear to auscultation. HEART: S1, S2 regular. ABDOMEN: Soft. EXTREMITIES: Clubbing and cyanosis negative. BLOOD WORKUP: WBC 6, hemoglobin 9.9, hematocrit 30.7, platelet count 324. Chemistry shows sodium 13 7, potassium 3.7, chloride 101, carbon dioxide 30, anion gap of 9, BUN 70, creatinine 1.1. Total pro tein ____, albumin ____, albumin/globulin ratio 0.6. ASSESSMENT: Moderate protein-calorie malnutrition that was not present on admission. It went to pranay hylton, now is improving, hypokalemia, anemia, rectal abscess drained, status post debridement, coronary artery disease, status post stent in ____ status post sick sinus syndrome, status post permanent pace maker. RECOMMENDATION: Continue nutritional support. Continue antibiotic. Continue local wound. Will sup plement potassium. The patient is stable and okay to consider discontinuing telemetry. Gale Mora MD cc: [phone] TT: 01/19/2017 19:57:42 Confirmation # [id number] Dictation # [id number] jeff
[2017-01-20] MEDS: Piperacillin/Tazobact 3.375 gm 100 ML IVPB SCH ×5 (00:07→23:55)
--- NOTE | 2017-01-20 07:03 | CP.PCM.PN ---
Subjective - Date & Time of Evaluation Date of Evaluation: 01/20/17 Time of Evaluation: 07:02 - Subjective Subjective: Surgery: Dr. Pimentel Patient doing well. Last night patient did soil himself requiring wound vac dressing change however patient again soiled himself this am. Patient states wound care came and adjusted wound vac however now he is unable to lay on his side. Patient states he would prefer prior placement of wound vac attachment on gluteal site. Objective - Vital Signs/Intake and Output Vital Signs (last 24 hours): Temp Pulse Resp BP Pulse Ox 98.2 F 111 H 18 164/67 H 98 01/20/17 00:01 01/20/17 00:01 01/20/17 00:01 01/20/17 00:01 01/20/17 00:01 - Medications Medications: Current Medications Acetaminophen (Tylenol 650mg/20.3ml Solution Ud) 650 mg GT Q4H PRN PRN Reason: Fever >100.4 F Last Admin: 01/16/17 00:04 Dose: 650 mg Albuterol/Ipratropium (Duoneb 3 Mg/0.5 Mg (3 Ml) Ud) 3 ml IH Q2H PRN PRN Reason: Shortness of Breath Last Admin: 01/18/17 08:29 Dose: 3 ml Alprazolam (Xanax) 0.5 mg PO TID PRN; Protocol PRN Reason: Anxiety Last Admin: 01/14/17 21:49 Dose: 0.5 mg Aspirin (Aspirin Chewable) 81 mg PO DAILY [facility] Last Admin: 01/19/17 09:59 Dose: 81 mg Diphenhydramine HCl (Benadryl) 25 mg PO HS PRN PRN Reason: Insomnia Last Admin: 01/20/17 00:53 Dose: 25 mg Ferrous Sulfate (Feosol) 324 mg PO TID [facility] Last Admin: 01/19/17 18:02 Dose: 324 mg Heparin Sodium (Porcine) (Heparin) 5,000 units SC Q8 [facility] Last Admin: 01/20/17 06:19 Dose: 5,000 units Hydrochlorothiazide (Hydrodiuril) 25 mg GT DAILY [facility] Last Admin: 01/19/17 09:59 Dose: 25 mg Piperacillin Sod/Tazobactam Sod (Zosyn 3.375 In Ns 100ml) 100 mls @ 200 mls/hr IVPB Q6 [facility] PRN Reason: Protocol Stop: 01/23/17 12:01 Last Admin: 01/20/17 06:20 Dose: 200 mls/hr Losartan Potassium (Cozaar) 100 mg GT DAILY [facility] Last Admin: 01/19/17 09:59 Dose: 100 mg Morphine Sulfate (Morphine) 4 mg IVP Q4H PRN PRN Reason: Pain, moderate (4-7) Last Admin: 01/19/17 10:01 Dose: 4 mg Morphine Sulfate (Morphine) 6 mg IVP Q4H PRN PRN Reason: Pain, severe (8-10) Multivitamins (Thera Tab) 1 tab PO DAILY [facility] Last Admin: 01/19/17 09:59 Dose: 1 tab Nystatin (Nystop Topical Powder) 0 gm TOP TID [facility] Last Admin: 01/19/17 18:02 Dose: 1 appl Ondansetron HCl (Zofran Inj) 4 mg IVP Q4H PRN PRN Reason: Nausea/Vomiting Last Admin: 01/06/17 21:58 Dose: 4 mg Ondansetron HCl (Zofran Inj) 4 mg IVP ONCE PRN PRN Reason: Nausea/Vomiting Simethicone (Mylicon Chew Tab) 80 mg PO HS [facility] Last Admin: 01/19/17 21:24 Dose: 80 mg - Labs Labs: 01/19/17 06:30 01/19/17 06:30 PT 12.6 Seconds (9.9-11.8) H 01/10/17 12:30 INR 1.17 (0.93-1.08) H 01/10/17 12:30 APTT 33.4 Seconds (23.7-30.8) H 01/10/17 12:30 - Constitutional Appears: Non-toxic, No Acute Distress - Head Exam Head Exam: ATRAUMATIC, NORMOCEPHALIC - Eye Exam Eye Exam: EOMI, Normal appearance - ENT Exam ENT Exam: Mucous Membranes Moist - Respiratory Exam Respiratory Exam: NORMAL BREATHING PATTERN. absent: Respiratory Distress - Cardiovascular Exam Cardiovascular Exam: REGULAR RHYTHM. absent: Tachycardia - Rectal Exam Additional comments: rectal wound: triangular shaped gluteal wound w/ beefy red base, 2x1cm opening w / about 1-2 cm tunneling underneath skin. Silver tubular foam placed into wound. wound vac replaced w/ no leak noted. Assessment and Plan - Assessment and Plan (Free Text) Assessment: 76 y/o male w/ zaira-rectal abscess s/p I&D, debridement, and POD5 from further debridement and delayed partial primary closure Plan: -cont wound vac -not necessary to bridge wound vac attachment due to patient's preference of lateral recumbent position, if up and seated patient should sit on donut to protect wound and vac placement. -medical management per primary -reg diet -pain control -further recs per Dr. Pimentel [facility] PGY1
[2017-01-20] MEDS: Morphine 4 mg/ml ISec IVP PRN (07:05)
[2017-01-20] MEDS: Simethicone 80 mg Chewtab PO SCH ×4 (09:21→22:39)
--- NOTE | 2017-01-20 10:29 | PN ---
DATE: 01/20/2017 The patient is in bed, was seen earlier today in [facility], bed 2. No fevers and chills. PHYSICAL EXAMINATION: VITAL SIGNS: Temperature is 98, blood pressure is 130/60, respiratory rate of 21, heart rate of 111. HEENT: Unremarkable. NECK: Supple. LUNGS: Have decreased breath sounds. HEART: Normal S1, S2. ABDOMEN: Soft, nontender. LABORATORY EXAMINATION: Reveals a white count of 6 and a hemoglobin of 9. Chemistries reveal the BU N of 17, creatinine of 1.1. Procalcitonin is 0.11. Urinalysis is noted. Microbiology is reviewed. Repeat blood cultures are negative and urine culture is negative. Review of the medications reveals the patient to be on Zosyn still. ASSESSMENT AND PLAN: A 76-year-old with sepsis due to perirectal abscess, status post incision and d rainage, postoperative day #24, status post repeat debridement, postoperative day #11 and a partial c losure and repeat debridement, postoperative day #5 with cultures growing Streptococcus milleri and E scherichia coli, status post wound vacuum placement, postprocedure day #3., currently on Zosyn and we continue to monitor closely. The patient had issues with wound VAC last night. We will follow nicole boyd with you. Guillaume Spence MD cc: [id number] TT: 01/20/2017 10:28:41 Confirmation # [id number] Dictation # [id number]
[2017-01-20] MEDS: Multivitamin Therapeutic Tab PO SCH (10:54)
[2017-01-20] MEDS: Nystatin 100,000 Units/gm Topical Pow(15 gm) TOP SCH ×3 (10:55→18:26)
--- NOTE | 2017-01-20 12:58 | PN ---
DATE: 01/20/2017 I am seeing him for Dr. Orantes. I saw him resting in bed this morning. He is alert. He is comfortable. He slept well. He is eatin g. He is going to the bathroom. He feels like he is healing up very well. He has a wound VAC on. He is improving, status post procedures to his area, had an abscess. PHYSICAL EXAMINATION: VITAL SIGNS: 98.6 temp, 68 pulse, 139/65 blood pressure, 20 respiratory rate, 96% O2 sat on room air . HEAD: Atraumatic, normocephalic. Throat is moist. NECK: Supple. HEART: Regular rate. LUNGS: Decreased breath sounds but clear. ABDOMEN: Soft, obese, nontender. EXTREMITIES: No edema. He has a wound VAC on. MEDICATIONS: He is currently on aspirin, Benadryl, Cozaar, DuoNeb, iron, heparin, HydroDIURIL, morph ine p.r.n. He has Mylicon, Nystatin, Thera-Tabs, Tylenol, Zofran and Zosyn. LABORATORY DATA: He has a 6 white count, 9.9 hemoglobin, 30.7 hematocrit, 324 platelets. INR is 1.1 7. Sodium 137, potassium 3.7, BUN 17, creatinine 1.1, GFR is greater than 60, sugar is 125, calcium is 9, phosphorus 3.8, magnesium 1.6. Total bili is 0.5. AST 31, ALT 32, alkaline phosphatase 57. To trixie protein is 5.9. Procalcitonin is 0.11. He is being seen by infectious disease, cardiology, GI. He has multiple issues. He has a perirectal abscess, gastrointestinal bleed, small-bowel obstruction. He had incision and drainage and debridem ent of the perirectal abscess. He had lower lobe pneumonia, coronary artery disease, gastroesophagea l reflux disease, history of prostate cancer, hypertension, history of back surgery. Continue with I V antibiotics. We will check his labs tomorrow. I encouraged him to get out of bed to chair, eat he althy, use the incentive spirometry for his lungs. Alexis Bernstein DO cc: [id number] TT: 01/20/2017 12:57:48 Confirmation # [id number] Dictation # [id number]
[2017-01-21] MEDS: Piperacillin/Tazobact 3.375 gm 100 ML IVPB SCH ×3 (06:13→17:34)
[2017-01-21 07:36] LABS: HEMATOCRIT 31.7 % (42.0-52.0); MEAN CELL VOLUME 92.4 fL (80.0-105.0); MEAN CORPUSCULAR HEMOGLOBIN 30.3 pg (25.0-35.0); MEAN CORPUSCULAR HGB CONC 32.8 g/dl (31.0-37.0); MEAN PLATELET VOLUME 10.3 fl (7.0-11.0); RED CELL DISTRIBUTION WIDTH 15.4 % (11.5-14.5); WHITE BLOOD COUNT 6.1 10^3/ul (4.5-11.0)
[2017-01-21 07:56] LABS: ALB/GLOB RATIO 0.8 (1.1-1.8); ALKALINE PHOSPHATASE 59 U/L (38-133); ALT/SGPT 35 U/L (7-56); AST/SGOT 39 U/L (15-59); BILIRUBIN,TOTAL 0.6 mg/dL (0.2-1.3); BLOOD UREA NITROGEN 17 mg/dL (7-21); CALCIUM 8.9 mg/dL (8.4-10.5); CARBON DIOXIDE 29 mmol/L (21-33); CHLORIDE 103 mmol/L (95-110); GFR AFRICAN-AMERICAN > 60; GLUCOSE,RANDOM 123 mg/dL (70-110); POTASSIUM 3.7 mmol/L (3.6-5.0); SODIUM 137 mmol/L (132-148); TOTAL PROTEIN 6.2 g/dL (5.8-8.3)
--- NOTE | 2017-01-21 07:58 | CP.PCM.PN ---
Subjective - Date & Time of Evaluation Date of Evaluation: 01/21/17 Time of Evaluation: 07:54 - Subjective Subjective: Surgery: Dr. Pimentel Pt seen and examined. No acute overnight events. States he's feeling better and was able to get a full night's sleep. Wound vac changed yesterday is working well. Pt tolerating diet and continues to have BMs. Denies N/V, F/C. Objective - Vital Signs/Intake and Output Vital Signs (last 24 hours): Temp Pulse Resp BP Pulse Ox 99.6 F 84 20 110/63 96 01/21/17 06:00 01/21/17 06:00 01/21/17 06:00 01/21/17 06:00 01/21/17 06:00 Intake and Output: 01/21/17 01/21/17 06:59 18:59 Intake Total 1140 Output Total 2275 Balance -1135 - Medications Medications: Current Medications Acetaminophen (Tylenol 650mg/20.3ml Solution Ud) 650 mg GT Q4H PRN PRN Reason: Fever >100.4 F Last Admin: 01/16/17 00:04 Dose: 650 mg Albuterol/Ipratropium (Duoneb 3 Mg/0.5 Mg (3 Ml) Ud) 3 ml IH Q2H PRN PRN Reason: Shortness of Breath Last Admin: 01/18/17 08:29 Dose: 3 ml Aspirin (Aspirin Chewable) 81 mg PO DAILY [facility] Last Admin: 01/20/17 10:54 Dose: 81 mg Diphenhydramine HCl (Benadryl) 25 mg PO HS PRN PRN Reason: Insomnia Last Admin: 01/20/17 23:55 Dose: 25 mg Ferrous Sulfate (Feosol) 324 mg PO TID [facility] Last Admin: 01/20/17 17:10 Dose: 324 mg Heparin Sodium (Porcine) (Heparin) 5,000 units SC Q8 [facility] Last Admin: 01/21/17 06:13 Dose: 5,000 units Hydrochlorothiazide (Hydrodiuril) 25 mg GT DAILY [facility] Last Admin: 01/20/17 10:54 Dose: 25 mg Piperacillin Sod/Tazobactam Sod (Zosyn 3.375 In Ns 100ml) 100 mls @ 200 mls/hr IVPB Q6 [facility] PRN Reason: Protocol Stop: 01/23/17 12:01 Last Admin: 01/21/17 06:13 Dose: 200 mls/hr Losartan Potassium (Cozaar) 100 mg GT DAILY [facility] Last Admin: 01/20/17 10:55 Dose: 100 mg Multivitamins (Thera Tab) 1 tab PO DAILY [facility] Last Admin: 01/20/17 10:54 Dose: 1 tab Nystatin (Nystop Topical Powder) 0 gm TOP TID [facility] Last Admin: 01/20/17 18:26 Dose: 1 appl Ondansetron HCl (Zofran Inj) 4 mg IVP Q4H PRN PRN Reason: Nausea/Vomiting Last Admin: 01/06/17 21:58 Dose: 4 mg Ondansetron HCl (Zofran Inj) 4 mg IVP ONCE PRN PRN Reason: Nausea/Vomiting Simethicone (Mylicon Chew Tab) 80 mg PO [facility] Last Admin: 01/20/17 22:39 Dose: 80 mg - Labs Labs: 01/21/17 07:30 01/19/17 06:30 PT 12.6 Seconds (9.9-11.8) H 01/10/17 12:30 INR 1.17 (0.93-1.08) H 01/10/17 12:30 APTT 33.4 Seconds (23.7-30.8) H 01/10/17 12:30 - Constitutional Appears: Well, No Acute Distress - Head Exam Head Exam: ATRAUMATIC, NORMOCEPHALIC - Eye Exam Eye Exam: Normal appearance - ENT Exam ENT Exam: Mucous Membranes Moist - Respiratory Exam Respiratory Exam: NORMAL BREATHING PATTERN - Cardiovascular Exam Cardiovascular Exam: RRR - GI/Abdominal Exam GI & Abdominal Exam: Soft. absent: Distended, Guarding, Tenderness - Rectal Exam Additional comments: zaira-rectal wound with wound vac in place - Neurological Exam Neurological Exam: Alert, Awake, Oriented x3 - Skin Skin Exam: Dry, Warm Assessment and Plan - Assessment and Plan (Free Text) Assessment: 76M s/p debridement with partial closure of zaira-rectal wound Plan: - Next wound vac change on - Continue ABX - Continue local wound care - Encourage PT and ambulation - d/w Dr. Loren Cueto, PGY-2 Surgery
[2017-01-21] MEDS: Nystatin 100,000 Units/gm Topical Pow(15 gm) TOP SCH ×3 (10:31→17:36)
[2017-01-21] MEDS: Multivitamin Therapeutic Tab PO SCH (10:31)
[2017-01-21] MEDS: Simethicone 80 mg Chewtab PO SCH ×4 (10:31→21:43)
--- NOTE | 2017-01-21 11:09 | PN ---
DATE: 01/21/2017 I saw the patient resting in bed. He slept well. He had a grape yesterday, and then he had lots of diarrhea. He feels better now. He is healing up. He is getting out of bed to chair. He is using the incentive spirometry. He has got no pain at this time. He has got an appetite. He is in good spirits. MEDICATIONS: He is on aspirin, Benadryl, Cozaar, DuoNeb, iron, heparin, HydroDIURIL, Mylicon, nystatin powder, Thera-Tabs, Tylenol, Zofran, and Zosyn IV. PHYSICAL EXAMINATION: VITAL SIGNS: Temp 99.6. He had a 99 temp last night, 84 pulse, 110/63 blood pressure, 20 respiratory rate, 96% O2 sat on room air. HEAD: Atraumatic, normocephalic. Throat is moist. NECK: Supple. HEART: Regular rate. LUNGS: Clear to auscultation with decreased breath sounds. ABDOMEN: Soft, positive bowel sounds, nontender. EXTREMITIES: No edema, and he has got a wound VAC on. LABORATORY DATA: He has a 6.1 white count, 10.4 hemoglobin, 31.7 hematocrit with 318 platelets. Sodium 137, potassium 3.7, BUN 17, creatinine 1.1. GFR is greater than 60. Sugar is 123. Calcium is 8.9. Total bili is 0.6. AST is 39. ALT is 35. Alk phos is 59. Total protein is 6.2. He is being seen by infectious disease, cardiology, GI. He had incision and drainage and debridement of the perirectal abscess, lower lobe pneumonia, which is improving, coronary artery disease, gastroesophageal reflux disease, history of prostate cancer, hypertension, history of back surgery. He will be on IV antibiotics. We are checking his labs. I encouraged him to get out of bed to chair and use incentive spirometry. I do not think he is improving. He thinks he needs to go to subacute rehab. That will be next on the agenda. Maybe they can get that started tomorrow, Sunday, and as per infectious disease, cardiology and GI. Covering for Dr. Orantes. Alexis Bernstein DO cc: [id number] TT: 01/21/2017 11:09:10 Confirmation # [id number] Dictation # [id number] MTDD
--- NOTE | 2017-01-21 11:58 | PN ---
DATE: 01/21/2017 SUBJECTIVE: The patient is seen earlier this morning in room 266, bed 2. No fevers and chills. PHYSICAL EXAMINATION: VITAL SIGNS: Temperature is 99. Blood pressure is 110/60, respiratory rate of 16. HEENT: Unremarkable. NECK: Supple. LUNGS: Have decreased breath sounds. HEART: Normal S1, S2. ABDOMEN: Soft, nontender. LABORATORY EXAMINATION: Reveals a white count of 6.1, hemoglobin of 10, platelets of 318. Chemistri es reveal the BUN of 17, creatinine of 1.1. Procalcitonin 0.11. Urinalysis is noted. Serology: He patitis C is positive. Microbiology is noted. Review of the orders reveals the patient to be on Zosyn, which requires renewal, which I will do so. ASSESSMENT AND PLAN: This is a 76-year-old male with sepsis secondary to a perirectal abscess, statu s post incision and drainage, postoperative day #25, status post repeat debridement postoperative day #12, and a partial closure and repeat debridement postoperative day #6 with Streptococcus milleri, E scherichia coli cultures, and now on a wound vacuum-assisted closure placement, post-procedure day #5 . Currently, on Zosyn. We will continue to follow with you. Guillaume Spence MD cc: [id number] TT: 01/21/2017 11:57:49 Confirmation # [id number] Dictation # [id number]
[2017-01-22] MEDS: Piperacillin/Tazobact 3.375 gm 100 ML IVPB SCH ×4 (00:13→17:54)
[2017-01-22 06:31] LABS: HEMATOCRIT 31.6 % (42.0-52.0); MEAN CELL VOLUME 92.4 fL (80.0-105.0); MEAN CORPUSCULAR HEMOGLOBIN 30.1 pg (25.0-35.0); MEAN CORPUSCULAR HGB CONC 32.6 g/dl (31.0-37.0); MEAN PLATELET VOLUME 10.2 fl (7.0-11.0); RED CELL DISTRIBUTION WIDTH 15.5 % (11.5-14.5); WHITE BLOOD COUNT 6.8 10^3/ul (4.5-11.0)
[2017-01-22 06:51] LABS: ALB/GLOB RATIO 0.8 (1.1-1.8); ALKALINE PHOSPHATASE 59 U/L (38-133); ALT/SGPT 39 U/L (7-56); AST/SGOT 41 U/L (15-59); BILIRUBIN,TOTAL 0.6 mg/dL (0.2-1.3); BLOOD UREA NITROGEN 21 mg/dL (7-21); CARBON DIOXIDE 29 mmol/L (21-33); CHLORIDE 103 mmol/L (98-107); GFR AFRICAN-AMERICAN > 60; GLUCOSE,RANDOM 129 mg/dL (70-110); POTASSIUM 3.7 mmol/L (3.6-5.0); SODIUM 138 mmol/L (132-148); TOTAL PROTEIN 6.2 g/dL (5.8-8.3)
[2017-01-22] MEDS: Nystatin 100,000 Units/gm Topical Pow(15 gm) TOP SCH ×3 (09:33→17:54)
[2017-01-22] MEDS: Simethicone 80 mg Chewtab PO SCH ×4 (09:33→21:32)
[2017-01-22] MEDS: Multivitamin Therapeutic Tab PO SCH (09:34)
--- NOTE | 2017-01-22 09:55 | CP.PCM.PN ---
Subjective - Date & Time of Evaluation Date of Evaluation: 01/22/17 Time of Evaluation: 09:52 - Subjective Subjective: Medicine progress note for Dr. Orantes/Dr. Sharpe service - Merlin Barragan PGY1 Patient seen and examined at bedside this morning. No acute overnight events or new complaints reported. Patient states that he is feeling better and his abdomen feels less distended than it has been several days prior. Discussed with patient subacute rehab placement. Patient is aware that he was denied for LTACH by the insurance company. Discussed with rehabilitation caseworker DEYANIRA placement. Otherwise, denies chest pain, palpitations, SOB. Objective - Vital Signs/Intake and Output Vital Signs (last 24 hours): Temp Pulse Resp BP Pulse Ox 98.4 F 68 18 149/53 L 96 01/22/17 06:00 01/22/17 06:00 01/22/17 06:00 01/22/17 06:00 01/22/17 06:00 Intake and Output: 01/22/17 01/22/17 06:59 18:59 Intake Total 1040 0 Output Total 1145 Balance -105 0 - Medications Medications: Current Medications Acetaminophen (Tylenol 650mg/20.3ml Solution Ud) 650 mg GT Q4H PRN PRN Reason: Fever >100.4 F Last Admin: 01/16/17 00:04 Dose: 650 mg Albuterol/Ipratropium (Duoneb 3 Mg/0.5 Mg (3 Ml) Ud) 3 ml IH Q2H PRN PRN Reason: Shortness of Breath Last Admin: 01/18/17 08:29 Dose: 3 ml Aspirin (Aspirin Chewable) 81 mg PO DAILY [facility] Last Admin: 01/22/17 09:33 Dose: 81 mg Diphenhydramine HCl (Benadryl) 25 mg PO HS PRN PRN Reason: Insomnia Last Admin: 01/22/17 00:14 Dose: 25 mg Ferrous Sulfate (Feosol) 324 mg PO TID [facility] Last Admin: 01/22/17 09:33 Dose: 324 mg Heparin Sodium (Porcine) (Heparin) 5,000 units SC Q8 [facility] Last Admin: 01/22/17 05:59 Dose: 5,000 units Hydrochlorothiazide (Hydrodiuril) 25 mg GT DAILY [facility] Last Admin: 01/22/17 09:33 Dose: 25 mg Piperacillin Sod/Tazobactam Sod (Zosyn 3.375 In Ns 100ml) 100 mls @ 200 mls/hr IVPB Q6 [facility] PRN Reason: Protocol Stop: 01/23/17 12:01 Last Admin: 01/22/17 05:58 Dose: 200 mls/hr Losartan Potassium (Cozaar) 100 mg GT DAILY [facility] Last Admin: 01/22/17 09:33 Dose: 100 mg Multivitamins (Thera Tab) 1 tab PO DAILY [facility] Last Admin: 01/22/17 09:34 Dose: 1 tab Nystatin (Nystop Topical Powder) 0 gm TOP TID [facility] Last Admin: 01/22/17 09:33 Dose: 1 appl Ondansetron HCl (Zofran Inj) 4 mg IVP Q4H PRN PRN Reason: Nausea/Vomiting Last Admin: 01/06/17 21:58 Dose: 4 mg Ondansetron HCl (Zofran Inj) 4 mg IVP ONCE PRN PRN Reason: Nausea/Vomiting Simethicone (Mylicon Chew Tab) 80 mg PO [facility] Last Admin: 01/22/17 09:33 Dose: 80 mg - Labs Labs: 01/22/17 06:00 01/22/17 06:00 PT 12.6 Seconds (9.9-11.8) H 01/10/17 12:30 INR 1.17 (0.93-1.08) H 01/10/17 12:30 APTT 33.4 Seconds (23.7-30.8) H 01/10/17 12:30 - Constitutional Appears: Non-toxic, No Acute Distress - Head Exam Head Exam: ATRAUMATIC, NORMAL INSPECTION, NORMOCEPHALIC - Eye Exam Eye Exam: EOMI, PERRL - ENT Exam ENT Exam: Mucous Membranes Moist - Neck Exam Neck Exam: Normal Inspection - Respiratory Exam Respiratory Exam: Clear to Ausculation Bilateral. absent: Rales, Rhonchi, Wheezes - Cardiovascular Exam Cardiovascular Exam: RRR, +S1, +S2. absent: Gallop, Rubs - GI/Abdominal Exam GI & Abdominal Exam: Distended, Soft. absent: Firm, Guarding, Rigid, Tenderness , Rebound - Extremities Exam Extremities Exam: Normal Inspection. 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 Perirectal abscess -Patient is s/p previous surgical intervention and had repeated wound debridement (POD#7) -Patient has been on zosyn as per ID recommendations -Blood and urine cultures have been negative -Wound vac placed by surgical team; Continue with wound care as per surgical team and wound care nurse -Afebrile, no leukocytosis 2. Anemia -H/H has been stable -No overt signs of bleeding; Hgb has been improving 3. Abdominal distension, resolving -Continue with simethicone 4. 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 CAD w/ stents -continue ASA, hctz and cozaar 6. DVT and GI prophylaxis -SCD's/Protonix 7. Disposition -Denied LTACH by his insurance company. Patient to consider subacute rehab options. Discussed with rehabilitation caseworker this morning. Patient seen, examined, discussed with Dr. Orantes
--- NOTE | 2017-01-22 15:43 | CP.PCM.PN ---
Subjective - Date & Time of Evaluation Date of Evaluation: 01/22/17 Time of Evaluation: 15:40 - Subjective Subjective: Surgery: Dr. Pimentel Patient doing well. No complaints. Wound vac needs to be changed. Objective - Vital Signs/Intake and Output Vital Signs (last 24 hours): Temp Pulse Resp BP Pulse Ox 97.4 F L 64 19 131/52 L 96 01/22/17 12:00 01/22/17 12:00 01/22/17 12:00 01/22/17 12:00 01/22/17 06:00 Intake and Output: 01/22/17 01/22/17 06:59 18:59 Intake Total 1040 0 Output Total 1145 Balance -105 0 - Medications Medications: Current Medications Acetaminophen (Tylenol 650mg/20.3ml Solution Ud) 650 mg GT Q4H PRN PRN Reason: Fever >100.4 F Last Admin: 01/16/17 00:04 Dose: 650 mg Albuterol/Ipratropium (Duoneb 3 Mg/0.5 Mg (3 Ml) Ud) 3 ml IH Q2H PRN PRN Reason: Shortness of Breath Last Admin: 01/18/17 08:29 Dose: 3 ml Aspirin (Aspirin Chewable) 81 mg PO DAILY [facility] Last Admin: 01/22/17 09:33 Dose: 81 mg Diphenhydramine HCl (Benadryl) 25 mg PO HS PRN PRN Reason: Insomnia Last Admin: 01/22/17 00:14 Dose: 25 mg Ferrous Sulfate (Feosol) 324 mg PO TID [facility] Last Admin: 01/22/17 13:46 Dose: 324 mg Heparin Sodium (Porcine) (Heparin) 5,000 units SC Q8 [facility] Last Admin: 01/22/17 13:46 Dose: 5,000 units Hydrochlorothiazide (Hydrodiuril) 25 mg GT DAILY [facility] Last Admin: 01/22/17 09:33 Dose: 25 mg Piperacillin Sod/Tazobactam Sod (Zosyn 3.375 In Ns 100ml) 100 mls @ 200 mls/hr IVPB Q6 [facility] PRN Reason: Protocol Stop: 01/23/17 12:01 Last Admin: 01/22/17 12:44 Dose: 200 mls/hr Losartan Potassium (Cozaar) 100 mg GT DAILY [facility] Last Admin: 01/22/17 09:33 Dose: 100 mg Multivitamins (Thera Tab) 1 tab PO DAILY [facility] Last Admin: 01/22/17 09:34 Dose: 1 tab Nystatin (Nystop Topical Powder) 0 gm TOP TID [facility] Last Admin: 01/22/17 14:21 Dose: 1 appl Ondansetron HCl (Zofran Inj) 4 mg IVP Q4H PRN PRN Reason: Nausea/Vomiting Last Admin: 01/06/17 21:58 Dose: 4 mg Ondansetron HCl (Zofran Inj) 4 mg IVP ONCE PRN PRN Reason: Nausea/Vomiting Simethicone (Mylicon Chew Tab) 80 mg PO [facility] Last Admin: 01/22/17 12:44 Dose: 80 mg - Labs Labs: 01/22/17 06:00 01/22/17 06:00 PT 12.6 Seconds (9.9-11.8) H 01/10/17 12:30 INR 1.17 (0.93-1.08) H 01/10/17 12:30 APTT 33.4 Seconds (23.7-30.8) H 01/10/17 12:30 - Constitutional Appears: Non-toxic, No Acute Distress - Head Exam Head Exam: ATRAUMATIC, NORMOCEPHALIC - Eye Exam Eye Exam: EOMI, Normal appearance - ENT Exam ENT Exam: Mucous Membranes Moist - Respiratory Exam Respiratory Exam: NORMAL BREATHING PATTERN. absent: Respiratory Distress - Cardiovascular Exam Cardiovascular Exam: REGULAR RHYTHM. absent: Tachycardia - Rectal Exam Additional comments: 1x2cm zaira-rectal wound, beefy red granulation tissue base. Skin edges irregular but healthy. minimal undermining of tissue edge and open wound. - Extremities Exam Extremities Exam: Normal Inspection. absent: Calf Tenderness - Neurological Exam Neurological Exam: Alert, Awake, Oriented x3 - Psychiatric Exam Psychiatric exam: Normal Affect, Normal Mood - Skin Skin Exam: Dry, Normal Color, Warm Assessment and Plan - Assessment and Plan (Free Text) Assessment: 76 y/o male w/ zaira-rectal abscess s/p I&D, debridement, and POD7 from further debridement and delayed partial primary closure Plan: -cont wound vac: however wound healing progressing, possible 2-3 more days of wound vac then may switch to minimal packing and overlying dressing. -medical management per primary -reg diet -pain control -further recs per Dr. Loren VILLAparish PGY1
--- NOTE | 2017-01-22 16:24 | PN ---
DATE: 01/22/2017 REASON FOR CONSULTATION AND FOLLOWUP: Status post PTCA, status post permanent pacemaker, admitted wi th rectal abscess, status post a drain and status post debridement. The patient sitting in a chair co mfortable. PHYSICAL EXAMINATION: VITAL SIGNS: Temperature afebrile, heart rate 64, blood pressure 130/52. HEENT: PERRLA. Extraocular muscles intact. NECK: Supple. No carotid bruits. No thyromegaly. CHEST: Clear to auscultation. HEART: S1, S2 regular. ABDOMEN: Soft. EXTREMITIES: Clubbing and cyanosis negative. LABORATORY DATA: Blood workup as follows: WBC 6.8, hemoglobin 10.3, hematocrit 31.6, platelet count 330. Chemistry shows sodium 130, potassium ____, chloride ____, carbon dioxide ____, anion gap of 1 0, BUN 21, creatinine 1.2. Albumin 2.7. IMPRESSION: Protein calorie malnutrition, moderate, which was not present on admission, initially se dina, now is improving, coronary artery disease, status post percutaneous transluminal coronary angio plasty, permanent pacemaker, obesity, rectal abscess. RECOMMENDATION: Continue wound care. Increase nutritional support. CVS status is stable. We will f vera with you. Thank you, Dr. Orantes, for providing the opportunity in taking care of the patient. Gale Mora MD cc: [id number] TT: 01/22/2017 16:23:47 Confirmation # [id number] Dictation # [id number]
--- NOTE | 2017-01-22 17:07 | CP.PCM.PN ---
Subjective - Date & Time of Evaluation Date of Evaluation: 01/22/17 Time of Evaluation: 09:20 - Subjective Subjective: Still with occasional pain in the perirectal area, no fevers overnight, no diarrhea. Objective - Vital Signs/Intake and Output Vital Signs (last 24 hours): Temp Pulse Resp BP Pulse Ox 98.4 F 68 18 149/53 L 96 01/22/17 06:00 01/22/17 06:00 01/22/17 06:00 01/22/17 06:00 01/22/17 06:00 Intake and Output: 01/22/17 01/22/17 06:59 18:59 Intake Total 1040 0 Output Total 1145 Balance -105 0 - Medications Medications: Current Medications Acetaminophen (Tylenol 650mg/20.3ml Solution Ud) 650 mg GT Q4H PRN PRN Reason: Fever >100.4 F Last Admin: 01/16/17 00:04 Dose: 650 mg Albuterol/Ipratropium (Duoneb 3 Mg/0.5 Mg (3 Ml) Ud) 3 ml IH Q2H PRN PRN Reason: Shortness of Breath Last Admin: 01/18/17 08:29 Dose: 3 ml Aspirin (Aspirin Chewable) 81 mg PO DAILY [facility] Last Admin: 01/21/17 10:29 Dose: 81 mg Diphenhydramine HCl (Benadryl) 25 mg PO HS PRN PRN Reason: Insomnia Last Admin: 01/22/17 00:14 Dose: 25 mg Ferrous Sulfate (Feosol) 324 mg PO TID [facility] Last Admin: 01/21/17 17:34 Dose: 324 mg Heparin Sodium (Porcine) (Heparin) 5,000 units SC Q8 [facility] Last Admin: 01/22/17 05:59 Dose: 5,000 units Hydrochlorothiazide (Hydrodiuril) 25 mg GT DAILY [facility] Last Admin: 01/21/17 10:31 Dose: 25 mg Piperacillin Sod/Tazobactam Sod (Zosyn 3.375 In Ns 100ml) 100 mls @ 200 mls/hr IVPB Q6 [facility] PRN Reason: Protocol Stop: 01/23/17 12:01 Last Admin: 01/22/17 05:58 Dose: 200 mls/hr Losartan Potassium (Cozaar) 100 mg GT DAILY [facility] Last Admin: 01/21/17 10:30 Dose: 100 mg Multivitamins (Thera Tab) 1 tab PO DAILY [facility] Last Admin: 01/21/17 10:31 Dose: 1 tab Nystatin (Nystop Topical Powder) 0 gm TOP TID [facility] Last Admin: 01/21/17 17:36 Dose: 1 appl Ondansetron HCl (Zofran Inj) 4 mg IVP Q4H PRN PRN Reason: Nausea/Vomiting Last Admin: 01/06/17 21:58 Dose: 4 mg Ondansetron HCl (Zofran Inj) 4 mg IVP ONCE PRN PRN Reason: Nausea/Vomiting Simethicone (Mylicon Chew Tab) 80 mg PO [facility] Last Admin: 01/21/17 21:43 Dose: 80 mg - Labs Labs: 01/22/17 06:00 01/22/17 06:00 PT 12.6 Seconds (9.9-11.8) H 01/10/17 12:30 INR 1.17 (0.93-1.08) H 01/10/17 12:30 APTT 33.4 Seconds (23.7-30.8) H 01/10/17 12:30 - Constitutional Appears: Non-toxic, No Acute Distress - Head Exam Head Exam: NORMAL INSPECTION - ENT Exam ENT Exam: Mucous Membranes Moist - Neck Exam Neck Exam: absent: Lymphadenopathy, Meningismus - Respiratory Exam Respiratory Exam: Decreased Breath Sounds - Cardiovascular Exam Cardiovascular Exam: +S1, +S2 - GI/Abdominal Exam GI & Abdominal Exam: Soft. absent: Tenderness Assessment and Plan - Assessment and Plan (Free Text) Plan: Assessment Sepsis due to perirectal abscess S/P I and D POD #26, S/P repeat debridement POD #13, and partial closure and repeat debridement POD #7 - cx growing Strep milleri and E. coli; S/P wound vacuum placement POD #5 lower lobe HCAP, resolved Abdominal distention consider bowel obstruction CAD S/P PCI prostate ca s/p robotic reconstruction 6 years ago GERD dyslipidemia history of 3rd degree AV block s/p permanent pacemaker placement history of dilated cardiomyopathy HTN history of back surgery S/P carotid endarterectomy Plan continue Zosyn pending for now - continue to monitor wound vacuum output will continue to monitor clinically
[2017-01-23] MEDS: Piperacillin/Tazobact 3.375 gm 100 ML IVPB SCH ×3 (00:20→13:18)
[2017-01-23] MEDS ORDERED: Bismuth Subsalicylate 262 mg/15 ml Sus (240 ml) PO PRN (03:51)
[2017-01-23] MEDS ORDERED: Alum-Mag Hydrox-Simethicone Susp (30 mL) PO PRN (03:51)
[2017-01-23] MEDS: Simethicone 80 mg Chewtab PO PRN (04:08)
[2017-01-23] MEDS ORDERED: Potassium Chloride 20 mEq ER Tab PO ONE (09:05)
--- NOTE | 2017-01-23 09:10 | CP.PCM.PN ---
Subjective - Date & Time of Evaluation Date of Evaluation: 01/23/17 Time of Evaluation: 09:08 - Subjective Subjective: Surgery: Dr. Pimentel Patient doing well. Complains of having an upset stomach. Denies diarrhea but had BM last night. REports no issues with wound vac overnight. Objective - Vital Signs/Intake and Output Vital Signs (last 24 hours): Temp Pulse Resp BP Pulse Ox 97.9 F 66 19 133/64 94 L 01/23/17 06:00 01/23/17 06:00 01/23/17 06:00 01/23/17 06:00 01/23/17 06:00 Intake and Output: 01/23/17 01/23/17 06:59 18:59 Intake Total 400 360 Output Total 225 Balance 400 135 - Medications Medications: Current Medications Acetaminophen (Tylenol 650mg/20.3ml Solution Ud) 650 mg GT Q4H PRN PRN Reason: Fever >100.4 F Last Admin: 01/16/17 00:04 Dose: 650 mg Al Hydrox/Mg Hydrox/Simethicone (Maalox Plus 30 Ml) 30 ml PO DAILY PRN PRN Reason: Indigestion / Heartburn Last Admin: 01/23/17 04:07 Dose: 30 ml Albuterol/Ipratropium (Duoneb 3 Mg/0.5 Mg (3 Ml) Ud) 3 ml IH Q2H PRN PRN Reason: Shortness of Breath Last Admin: 01/18/17 08:29 Dose: 3 ml Aspirin (Aspirin Chewable) 81 mg PO DAILY [facility] Last Admin: 01/22/17 09:33 Dose: 81 mg Bismuth Subsalicylate (Pepto-Bismol) 262 mg PO DAILY PRN PRN Reason: GI upset Diphenhydramine HCl (Benadryl) 25 mg PO HS PRN PRN Reason: Insomnia Last Admin: 01/23/17 00:21 Dose: 25 mg Ferrous Sulfate (Feosol) 324 mg PO TID [facility] Last Admin: 01/22/17 17:54 Dose: 324 mg Heparin Sodium (Porcine) (Heparin) 5,000 units SC Q8 [facility] Last Admin: 01/23/17 05:56 Dose: 5,000 units Hydrochlorothiazide (Hydrodiuril) 25 mg GT DAILY [facility] Last Admin: 01/22/17 09:33 Dose: 25 mg Piperacillin Sod/Tazobactam Sod (Zosyn 3.375 In Ns 100ml) 100 mls @ 200 mls/hr IVPB Q6 [facility] PRN Reason: Protocol Stop: 01/23/17 12:01 Last Admin: 01/23/17 05:57 Dose: 200 mls/hr Losartan Potassium (Cozaar) 100 mg GT DAILY [facility] Last Admin: 01/22/17 09:33 Dose: 100 mg Multivitamins (Thera Tab) 1 tab PO DAILY [facility] Last Admin: 01/22/17 09:34 Dose: 1 tab Nystatin (Nystop Topical Powder) 0 gm TOP TID [facility] Last Admin: 01/22/17 17:54 Dose: 1 appl Ondansetron HCl (Zofran Inj) 4 mg IVP Q4H PRN PRN Reason: Nausea/Vomiting Last Admin: 01/06/17 21:58 Dose: 4 mg Ondansetron HCl (Zofran Inj) 4 mg IVP ONCE PRN PRN Reason: Nausea/Vomiting Potassium Chloride (K-Dur 20 Meq Er Tab) 40 meq PO ONCE ONE Stop: 01/23/17 09:06 Simethicone (Mylicon Chew Tab) [address] [facility] Last Admin: 01/22/17 21:32 Dose: 80 mg Simethicone (Mylicon Chew Tab) 80 mg PO Q6H PRN PRN Reason: GI distress Last Admin: 01/23/17 04:08 Dose: 80 mg - Labs Labs: 01/22/17 06:00 01/22/17 06:00 PT 12.6 Seconds (9.9-11.8) H 01/10/17 12:30 INR 1.17 (0.93-1.08) H 01/10/17 12:30 APTT 33.4 Seconds (23.7-30.8) H 01/10/17 12:30 - Constitutional Appears: Non-toxic, No Acute Distress - Head Exam Head Exam: ATRAUMATIC, NORMOCEPHALIC - Eye Exam Eye Exam: EOMI, Normal appearance - ENT Exam ENT Exam: Mucous Membranes Moist - Respiratory Exam Respiratory Exam: NORMAL BREATHING PATTERN. absent: Respiratory Distress - Cardiovascular Exam Cardiovascular Exam: REGULAR RHYTHM. absent: Tachycardia - GI/Abdominal Exam GI & Abdominal Exam: Soft. absent: Tenderness - Rectal Exam Additional comments: wound vac in place, stool overlying plastic seal. Wiped clean. Good suction noted. Assessment and Plan - Assessment and Plan (Free Text) Assessment: 76 y/o male w/ zaira-rectal abscess s/p I&D, debridement, and POD8 from further debridement and delayed partial primary closure Plan: -possible 2 more days of wound vac then may switch to minimal packing and overlying dressing so patient can shower and clean wound after bowel movements. -medical management per primary -reg diet -pain control -further recs per Dr. Pimentel [facility] PGY1
[2017-01-23] MEDS: Simethicone 80 mg Chewtab PO SCH ×4 (10:31→21:46)
[2017-01-23] MEDS: Multivitamin Therapeutic Tab PO SCH (10:31)
[2017-01-23] MEDS: Nystatin 100,000 Units/gm Topical Pow(15 gm) TOP SCH ×3 (10:32→19:12)
--- NOTE | 2017-01-23 10:42 | CP.PCM.PN ---
Subjective - Date & Time of Evaluation Date of Evaluation: 01/23/17 Time of Evaluation: 10:37 - Subjective Subjective: Medicine progress note for Dr. Orantes/Dr. Sharpe service - Merlin Barragan PGY1 Patient seen and examined at bedside this morning. No acute overnight events reported. Patient is pending placement for wound care/rehab per leather case finisher. Denies chest pain, palpitations, SOB. Objective - Vital Signs/Intake and Output Vital Signs (last 24 hours): Temp Pulse Resp BP Pulse Ox 97.9 F 66 19 133/64 94 L 01/23/17 06:00 01/23/17 06:00 01/23/17 06:00 01/23/17 06:00 01/23/17 06:00 Intake and Output: 01/23/17 01/23/17 06:59 18:59 Intake Total 400 360 Output Total 225 Balance 400 135 - Medications Medications: Current Medications Acetaminophen (Tylenol 650mg/20.3ml Solution Ud) 650 mg GT Q4H PRN PRN Reason: Fever >100.4 F Last Admin: 01/16/17 00:04 Dose: 650 mg Al Hydrox/Mg Hydrox/Simethicone (Maalox Plus 30 Ml) 30 ml PO DAILY PRN PRN Reason: Indigestion / Heartburn Last Admin: 01/23/17 04:07 Dose: 30 ml Albuterol/Ipratropium (Duoneb 3 Mg/0.5 Mg (3 Ml) Ud) 3 ml IH Q2H PRN PRN Reason: Shortness of Breath Last Admin: 01/18/17 08:29 Dose: 3 ml Aspirin (Aspirin Chewable) 81 mg PO DAILY [facility] Last Admin: 01/23/17 10:31 Dose: 81 mg Bismuth Subsalicylate (Pepto-Bismol) 262 mg PO DAILY PRN PRN Reason: GI upset Diphenhydramine HCl (Benadryl) 25 mg PO HS PRN PRN Reason: Insomnia Last Admin: 01/23/17 00:21 Dose: 25 mg Ferrous Sulfate (Feosol) 324 mg PO TID [facility] Last Admin: 01/23/17 10:31 Dose: 324 mg Heparin Sodium (Porcine) (Heparin) 5,000 units SC Q8 [facility] Last Admin: 01/23/17 05:56 Dose: 5,000 units Hydrochlorothiazide (Hydrodiuril) 25 mg GT DAILY [facility] Last Admin: 01/23/17 10:31 Dose: 25 mg Piperacillin Sod/Tazobactam Sod (Zosyn 3.375 In Ns 100ml) 100 mls @ 200 mls/hr IVPB Q6 [facility] PRN Reason: Protocol Stop: 01/23/17 12:01 Last Admin: 01/23/17 05:57 Dose: 200 mls/hr Losartan Potassium (Cozaar) 100 mg GT DAILY [facility] Last Admin: 01/23/17 10:31 Dose: 100 mg Multivitamins (Thera Tab) 1 tab PO DAILY [facility] Last Admin: 01/23/17 10:31 Dose: 1 tab Nystatin (Nystop Topical Powder) 0 gm TOP TID [facility] Last Admin: 01/23/17 10:32 Dose: 1 appl Ondansetron HCl (Zofran Inj) 4 mg IVP Q4H PRN PRN Reason: Nausea/Vomiting Last Admin: 01/06/17 21:58 Dose: 4 mg Ondansetron HCl (Zofran Inj) 4 mg IVP ONCE PRN PRN Reason: Nausea/Vomiting Simethicone (Mylicon Chew Tab) 80 mg PO [facility] Last Admin: 01/23/17 10:31 Dose: 80 mg Simethicone (Mylicon Chew Tab) 80 mg PO Q6H PRN PRN Reason: GI distress Last Admin: 01/23/17 04:08 Dose: 80 mg - Labs Labs: 01/22/17 06:00 01/22/17 06:00 PT 12.6 Seconds (9.9-11.8) H 01/10/17 12:30 INR 1.17 (0.93-1.08) H 01/10/17 12:30 APTT 33.4 Seconds (23.7-30.8) H 01/10/17 12:30 - Constitutional Appears: Non-toxic, No Acute Distress - Head Exam Head Exam: ATRAUMATIC, NORMAL INSPECTION, NORMOCEPHALIC - Eye Exam Eye Exam: EOMI, PERRL - ENT Exam ENT Exam: Mucous Membranes Moist - Cardiovascular Exam Cardiovascular Exam: RRR, +S1, +S2. absent: Gallop, Rubs - GI/Abdominal Exam GI & Abdominal Exam: Distended, Soft. 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 Perirectal abscess -Patient is s/p previous surgical intervention and had repeated wound debridement (POD#8) -Continue zosyn as per ID recommendations -Blood and urine cultures have been negative -Wound vac placed by surgical team -Continue with wound care as per surgical team -Afebrile, no leukocytosis 2. Anemia, resolving -H/H has been stable -No overt signs of bleeding; Hgb has been improving 3. Abdominal distension, resolving -Continue with simethicone 4. 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 CAD w/ stents -continue ASA, hctz and cozaar 6. DVT and GI prophylaxis -SCD's/Protonix 7. Disposition -Denied LTACH by his insurance company. Patient to consider subacute rehab options. Discussed with leather case finisher this morning. Patient seen, examined, discussed with Dr. Orantes
--- NOTE | 2017-01-23 10:58 | PN ---
DATE: 01/23/2017 REASON FOR CONSULTATION AND FOLLOWUP: Status post PTCA, status post permanent pacemaker, admitted wi th rectal abscess, status post drainage, status post debridement. BRIEF CLINICAL HISTORY: A 76-year-old male with past medical history significant for hypertension, c oronary artery disease, status post PTCA, history of permanent pacemaker, admitted with rectal absces s, status post drainage, status post debridement, getting rehab. Denies any chest pain, shortness of breath, any palpitation. PHYSICAL EXAMINATION: VITAL SIGNS: Temperature afebrile, heart rate 60, blood pressure 133/64. HEENT: PERRLA. Extraocular muscles intact. NECK: Supple. No carotid bruits. No thyromegaly. CHEST: Clear to auscultation. HEART: S1, S2 regular. ABDOMEN: Soft. EXTREMITIES: Clubbing and cyanosis negative. LABORATORY DATA: Blood workup as follows: WBC 6.8, hemoglobin 10.0, hematocrit 31.6, platelet count 330. Chemistry shows sodium 130, potassium 3.____, chloride 103, carbon dioxide 29, anion gap of 10 , BUN 21, creatinine 1.2. Total protein 6.2, albumin 2.7, albumin/globulin ratio 0.8. IMPRESSION: Protein-calorie malnutrition which is moderate, improving which was not present on admis angela; anemia, rectal abscess, coronary artery disease, status post percutaneous transluminal coronary angioplasty, status post repeat catheterization, patent stent, negative stress test, status post per manent pacemaker. RECOMMENDATION: Continue local wound care per surgery. Continue antibiotics. Continue rehab therap y. Continue losartan for high blood pressure and deep venous thrombosis prophylaxis. Continue gentl e diuretics and good nutrition support. Cardiovascular status is stable. Thank you, Dr. Orantes, for providing us the opportunity in taking care of the patient. We will fol low with you. We will supplement potassium. Gale Mora MD cc: [id number] TT: 01/23/2017 10:57:56 Confirmation # [id number] Dictation # [id number] tn
--- NOTE | 2017-01-23 11:58 | CP.PCM.PN ---
Subjective - Date & Time of Evaluation Date of Evaluation: 01/23/17 Time of Evaluation: 09:40 - Subjective Subjective: Comfortable, not in distress, afebrile, no diarrhea, a little less pain in the perirectal area. Objective - Vital Signs/Intake and Output Vital Signs (last 24 hours): Temp Pulse Resp BP Pulse Ox 97.9 F 66 19 133/64 94 L 01/23/17 06:00 01/23/17 06:00 01/23/17 06:00 01/23/17 06:00 01/23/17 06:00 Intake and Output: 01/23/17 01/23/17 06:59 18:59 Intake Total 400 360 Output Total 225 Balance 400 135 - Medications Medications: Current Medications Acetaminophen (Tylenol 650mg/20.3ml Solution Ud) 650 mg GT Q4H PRN PRN Reason: Fever >100.4 F Last Admin: 01/16/17 00:04 Dose: 650 mg Al Hydrox/Mg Hydrox/Simethicone (Maalox Plus 30 Ml) 30 ml PO DAILY PRN PRN Reason: Indigestion / Heartburn Last Admin: 01/23/17 04:07 Dose: 30 ml Albuterol/Ipratropium (Duoneb 3 Mg/0.5 Mg (3 Ml) Ud) 3 ml IH Q2H PRN PRN Reason: Shortness of Breath Last Admin: 01/18/17 08:29 Dose: 3 ml Aspirin (Aspirin Chewable) 81 mg PO DAILY [facility] Last Admin: 01/22/17 09:33 Dose: 81 mg Bismuth Subsalicylate (Pepto-Bismol) 262 mg PO DAILY PRN PRN Reason: GI upset Diphenhydramine HCl (Benadryl) 25 mg PO HS PRN PRN Reason: Insomnia Last Admin: 01/23/17 00:21 Dose: 25 mg Ferrous Sulfate (Feosol) 324 mg PO TID [facility] Last Admin: 01/22/17 17:54 Dose: 324 mg Heparin Sodium (Porcine) (Heparin) 5,000 units SC Q8 [facility] Last Admin: 01/23/17 05:56 Dose: 5,000 units Hydrochlorothiazide (Hydrodiuril) 25 mg GT DAILY [facility] Last Admin: 01/22/17 09:33 Dose: 25 mg Piperacillin Sod/Tazobactam Sod (Zosyn 3.375 In Ns 100ml) 100 mls @ 200 mls/hr IVPB Q6 [facility] PRN Reason: Protocol Stop: 01/23/17 12:01 Last Admin: 01/23/17 05:57 Dose: 200 mls/hr Losartan Potassium (Cozaar) 100 mg GT DAILY [facility] Last Admin: 01/22/17 09:33 Dose: 100 mg Multivitamins (Thera Tab) 1 tab PO DAILY [facility] Last Admin: 01/22/17 09:34 Dose: 1 tab Nystatin (Nystop Topical Powder) 0 gm TOP TID [facility] Last Admin: 01/22/17 17:54 Dose: 1 appl Ondansetron HCl (Zofran Inj) 4 mg IVP Q4H PRN PRN Reason: Nausea/Vomiting Last Admin: 01/06/17 21:58 Dose: 4 mg Ondansetron HCl (Zofran Inj) 4 mg IVP ONCE PRN PRN Reason: Nausea/Vomiting Simethicone (Mylicon Chew Tab) 80 mg PO [facility] Last Admin: 01/22/17 21:32 Dose: 80 mg Simethicone (Mylicon Chew Tab) 80 mg PO Q6H PRN PRN Reason: GI distress Last Admin: 01/23/17 04:08 Dose: 80 mg - Labs Labs: 01/22/17 06:00 01/22/17 06:00 PT 12.6 Seconds (9.9-11.8) H 01/10/17 12:30 INR 1.17 (0.93-1.08) H 01/10/17 12:30 APTT 33.4 Seconds (23.7-30.8) H 01/10/17 12:30 - Constitutional Appears: Non-toxic, No Acute Distress - Head Exam Head Exam: NORMAL INSPECTION - ENT Exam ENT Exam: Mucous Membranes Moist - Neck Exam Neck Exam: absent: Lymphadenopathy, Meningismus - Respiratory Exam Respiratory Exam: Decreased Breath Sounds - Cardiovascular Exam Cardiovascular Exam: +S1, +S2 - GI/Abdominal Exam GI & Abdominal Exam: Soft. absent: Tenderness Assessment and Plan - Assessment and Plan (Free Text) Plan: Assessment Sepsis due to perirectal abscess S/P I and D POD #27, S/P repeat debridement POD #14, and partial closure and repeat debridement POD #8 - cx growing Strep milleri and E. coli; S/P wound vacuum placement POD #6 lower lobe HCAP, resolved Abdominal distention consider bowel obstruction CAD S/P PCI prostate ca s/p robotic reconstruction 6 years ago GERD dyslipidemia history of 3rd degree AV block s/p permanent pacemaker placement history of dilated cardiomyopathy HTN history of back surgery S/P carotid endarterectomy Plan continue Zosyn - continue to monitor wound vacuum output and plan on it ( whether it will be removed or not) will continue to monitor clinically
[2017-01-23] MEDS: Acetaminophen 650mg/20.3ml solution UD GT PRN (13:31)
[2017-01-24] MEDS: Multivitamin Therapeutic Tab PO SCH (10:36)
[2017-01-24] MEDS: Simethicone 80 mg Chewtab PO SCH ×3 (10:37→17:32)
[2017-01-24] MEDS: Nystatin 100,000 Units/gm Topical Pow(15 gm) TOP SCH ×2 (10:37→13:25)
[2017-01-24] MEDS: Acetaminophen 650mg/20.3ml solution UD GT PRN (10:42)
--- NOTE | 2017-01-24 11:29 | CP.PCM.PN ---
Subjective - Date & Time of Evaluation Date of Evaluation: 01/24/17 Time of Evaluation: 09:00 - Subjective Subjective: General Surgery Progress Note for Dr. Pimentel Patient seen and examined at bedside. No acute events overnight. Patient reports his nausea and upset stomach as resolved. Patient had a bowel movement earlier this morning. Denies having headache, fever, chills, shortness of breath , chest pain, vomiting or abdominal pain. Objective - Vital Signs/Intake and Output Vital Signs (last 24 hours): Temp Pulse Resp BP Pulse Ox 98.5 F 65 20 128/65 98 01/24/17 06:00 01/24/17 06:00 01/24/17 06:00 01/24/17 06:00 01/24/17 06:00 Intake and Output: 01/24/17 01/24/17 06:59 18:59 Intake Total 320 Output Total 1600 Balance -1280 - Medications Medications: Current Medications Acetaminophen (Tylenol 650mg/20.3ml Solution Ud) 650 mg GT Q4H PRN PRN Reason: Fever >100.4 F Last Admin: 01/24/17 10:42 Dose: 650 mg Al Hydrox/Mg Hydrox/Simethicone (Maalox Plus 30 Ml) 30 ml PO DAILY PRN PRN Reason: Indigestion / Heartburn Last Admin: 01/23/17 04:07 Dose: 30 ml Albuterol/Ipratropium (Duoneb 3 Mg/0.5 Mg (3 Ml) Ud) 3 ml IH Q2H PRN PRN Reason: Shortness of Breath Last Admin: 01/18/17 08:29 Dose: 3 ml Aspirin (Aspirin Chewable) 81 mg PO DAILY [facility] Last Admin: 01/24/17 10:37 Dose: 81 mg Bismuth Subsalicylate (Pepto-Bismol) 262 mg PO DAILY PRN PRN Reason: GI upset Diphenhydramine HCl (Benadryl) 25 mg PO HS PRN PRN Reason: Insomnia Last Admin: 01/24/17 00:10 Dose: 25 mg Ferrous Sulfate (Feosol) 324 mg PO TID [facility] Last Admin: 01/24/17 10:37 Dose: 324 mg Heparin Sodium (Porcine) (Heparin) 5,000 units SC Q8 [facility] Last Admin: 01/24/17 05:14 Dose: 5,000 units Hydrochlorothiazide (Hydrodiuril) 25 mg GT DAILY [facility] Last Admin: 01/24/17 10:37 Dose: 25 mg Losartan Potassium (Cozaar) 100 mg GT DAILY [facility] Last Admin: 01/24/17 10:37 Dose: 100 mg Multivitamins (Thera Tab) 1 tab PO DAILY [facility] Last Admin: 01/24/17 10:36 Dose: 1 tab Nystatin (Nystop Topical Powder) 0 gm TOP TID [facility] Last Admin: 01/24/17 10:37 Dose: 1 appl Ondansetron HCl (Zofran Inj) 4 mg IVP Q4H PRN PRN Reason: Nausea/Vomiting Last Admin: 01/06/17 21:58 Dose: 4 mg Ondansetron HCl (Zofran Inj) 4 mg IVP ONCE PRN PRN Reason: Nausea/Vomiting Simethicone (Mylicon Chew Tab) 80 mg PO [facility] Last Admin: 01/24/17 10:37 Dose: 80 mg Simethicone (Mylicon Chew Tab) 80 mg PO Q6H PRN PRN Reason: GI distress Last Admin: 01/23/17 04:08 Dose: 80 mg - Labs Labs: 01/22/17 06:00 01/22/17 06:00 PT 12.6 Seconds (9.9-11.8) H 01/10/17 12:30 INR 1.17 (0.93-1.08) H 01/10/17 12:30 APTT 33.4 Seconds (23.7-30.8) H 01/10/17 12:30 - Constitutional Appears: Non-toxic, No Acute Distress - Head Exam Head Exam: ATRAUMATIC, NORMAL INSPECTION, NORMOCEPHALIC - Eye Exam Eye Exam: EOMI, Normal appearance - ENT Exam ENT Exam: Mucous Membranes Moist - Neck Exam Neck Exam: Normal Inspection - Respiratory Exam Respiratory Exam: absent: Respiratory Distress - Cardiovascular Exam Cardiovascular Exam: +S1, +S2 - GI/Abdominal Exam GI & Abdominal Exam: Soft, Normal Bowel Sounds. absent: Distended, Rebound - Rectal Exam Additional comments: wound vac in place, seal intact. Dark green stool surrounding the wound vac seal. - Extremities Exam Extremities Exam: Normal Inspection - Neurological Exam Neurological Exam: Alert, Awake, Oriented x3 - Psychiatric Exam Psychiatric exam: Normal Affect, Normal Mood Assessment and Plan - Assessment and Plan (Free Text) Assessment: 76 year male with zaira-rectal abscess s/p I&D, debridement, and POD #9 from further debridement and delayed partial primary closure Plan: -Discontinued wound vac to iodoform packing -medical management per primary team -Continue regular diet -pain control -further recs per Dr. Pimentel
--- NOTE | 2017-01-24 20:08 | CP.PCM.PN ---
Subjective - Date & Time of Evaluation Date of Evaluation: 01/24/17 Time of Evaluation: 20:06 - Subjective Subjective: Medicine progress note for Dr. Orantes/Dr. Sharpe service - Merlin Barragan PGY1 Patient seen and examined at bedside this morning. No acute overnight events or new complaints reported. Patient is pending a TCU bed when available. Wound vac discontinued per surgery recommendations. Denies chest pain, palpitations, SOB. Objective - Vital Signs/Intake and Output Vital Signs (last 24 hours): Temp Pulse Resp BP Pulse Ox 98.2 F 62 18 139/68 98 01/24/17 18:00 01/24/17 18:00 01/24/17 18:00 01/24/17 18:00 01/24/17 06:00 Intake and Output: 01/24/17 01/25/17 18:59 06:59 Intake Total 600 Output Total 600 Balance 0 - Medications Medications: Current Medications Acetaminophen (Tylenol 650mg/20.3ml Solution Ud) 650 mg GT Q4H PRN PRN Reason: Fever >100.4 F Last Admin: 01/24/17 10:42 Dose: 650 mg Al Hydrox/Mg Hydrox/Simethicone (Maalox Plus 30 Ml) 30 ml PO DAILY PRN PRN Reason: Indigestion / Heartburn Last Admin: 01/23/17 04:07 Dose: 30 ml Albuterol/Ipratropium (Duoneb 3 Mg/0.5 Mg (3 Ml) Ud) 3 ml IH Q2H PRN PRN Reason: Shortness of Breath Last Admin: 01/18/17 08:29 Dose: 3 ml Aspirin (Aspirin Chewable) 81 mg PO DAILY [facility] Last Admin: 01/24/17 10:37 Dose: 81 mg Bismuth Subsalicylate (Pepto-Bismol) 262 mg PO DAILY PRN PRN Reason: GI upset Diphenhydramine HCl (Benadryl) 25 mg PO HS PRN PRN Reason: Insomnia Last Admin: 01/24/17 00:10 Dose: 25 mg Ferrous Sulfate (Feosol) 324 mg PO TID [facility] Last Admin: 01/24/17 17:32 Dose: 324 mg Heparin Sodium (Porcine) (Heparin) 5,000 units SC Q8 [facility] Last Admin: 01/24/17 13:25 Dose: 5,000 units Hydrochlorothiazide (Hydrodiuril) 25 mg GT DAILY [facility] Last Admin: 01/24/17 10:37 Dose: 25 mg Losartan Potassium (Cozaar) 100 mg GT DAILY [facility] Last Admin: 01/24/17 10:37 Dose: 100 mg Multivitamins (Thera Tab) 1 tab PO DAILY [facility] Last Admin: 01/24/17 10:36 Dose: 1 tab Ondansetron HCl (Zofran Inj) 4 mg IVP Q4H PRN PRN Reason: Nausea/Vomiting Last Admin: 01/06/17 21:58 Dose: 4 mg Ondansetron HCl (Zofran Inj) 4 mg IVP ONCE PRN PRN Reason: Nausea/Vomiting Simethicone (Mylicon Chew Tab) 80 mg PO Q6H PRN PRN Reason: GI distress Last Admin: 01/23/17 04:08 Dose: 80 mg - Labs Labs: 01/22/17 06:00 01/22/17 06:00 PT 12.6 Seconds (9.9-11.8) H 01/10/17 12:30 INR 1.17 (0.93-1.08) H 01/10/17 12:30 APTT 33.4 Seconds (23.7-30.8) H 01/10/17 12:30 - Constitutional Appears: Non-toxic, No Acute Distress - Head Exam Head Exam: ATRAUMATIC, NORMAL INSPECTION, NORMOCEPHALIC - Eye Exam Eye Exam: EOMI, PERRL - ENT Exam ENT Exam: Mucous Membranes Moist - Respiratory Exam Respiratory Exam: Clear to Ausculation Bilateral. absent: Rales, Rhonchi, Wheezes - Cardiovascular Exam Cardiovascular Exam: RRR, +S1, +S2. absent: Gallop, JVD, Rubs - GI/Abdominal Exam GI & Abdominal Exam: Distended, Soft, Normal Bowel Sounds. absent: Firm, Guarding, Rigid, Tenderness - Neurological Exam Neurological Exam: Alert, Awake, Oriented x3 - Psychiatric Exam Psychiatric exam: Normal Affect, Normal Mood - Skin Skin Exam: Dry, Intact, Normal Color, Warm Assessment and Plan - Assessment and Plan (Free Text) Plan: 76yo male with history of hypertension, dilated cardiomyopathy, 3rd degree AV block s/p pace maker placement, prostate ca s/p robotic reconstruction surgery admitted for zaira-rectal abscess s/p surgical intervention 1. Perirectal abscess -Patient is s/p incision & drainage followed by debridement and further debridement (POD#9) -Patient completed course of zosyn per ID recommendations -Blood and urine cultures have been negative -Wound vac discontinued per surgical team recommendations -Continue with wound care -Afebrile, no leukocytosis 2. Anemia, resolving -H/H has been stable -No overt signs of bleeding; Hgb has been improving 3. Abdominal distension, resolving -Continue with simethicone 4. 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 CAD w/ stents -continue ASA, hctz and cozaar 6. DVT and GI prophylaxis -SCD's/Protonix 7. Disposition -Patient has been approved for TCU by his insurance company, however no TCU beds available at this time. Will be discharged to TCU once bed is made available. Patient seen, examined, discussed with Dr. Orantes
--- NOTE | 2017-01-24 20:31 | CP.PCM.PN ---
Subjective - Date & Time of Evaluation Date of Evaluation: 01/24/17 Time of Evaluation: 09:25 - Subjective Subjective: Comfortable in bed, still with pain in the perirectal area, no fevers overnight , no diarrhea. Objective - Vital Signs/Intake and Output Vital Signs (last 24 hours): Temp Pulse Resp BP Pulse Ox 98.5 F 65 20 128/65 98 01/24/17 06:00 01/24/17 06:00 01/24/17 06:00 01/24/17 06:00 01/24/17 06:00 Intake and Output: 01/24/17 01/24/17 06:59 18:59 Intake Total 320 Output Total 1600 Balance -1280 - Medications Medications: Current Medications Acetaminophen (Tylenol 650mg/20.3ml Solution Ud) 650 mg GT Q4H PRN PRN Reason: Fever >100.4 F Last Admin: 01/23/17 13:31 Dose: 650 mg Al Hydrox/Mg Hydrox/Simethicone (Maalox Plus 30 Ml) 30 ml PO DAILY PRN PRN Reason: Indigestion / Heartburn Last Admin: 01/23/17 04:07 Dose: 30 ml Albuterol/Ipratropium (Duoneb 3 Mg/0.5 Mg (3 Ml) Ud) 3 ml IH Q2H PRN PRN Reason: Shortness of Breath Last Admin: 01/18/17 08:29 Dose: 3 ml Aspirin (Aspirin Chewable) 81 mg PO DAILY [facility] Last Admin: 01/23/17 10:31 Dose: 81 mg Bismuth Subsalicylate (Pepto-Bismol) 262 mg PO DAILY PRN PRN Reason: GI upset Diphenhydramine HCl (Benadryl) 25 mg PO HS PRN PRN Reason: Insomnia Last Admin: 01/24/17 00:10 Dose: 25 mg Ferrous Sulfate (Feosol) 324 mg PO TID [facility] Last Admin: 01/23/17 18:00 Dose: 324 mg Heparin Sodium (Porcine) (Heparin) 5,000 units SC Q8 [facility] Last Admin: 01/24/17 05:14 Dose: 5,000 units Hydrochlorothiazide (Hydrodiuril) 25 mg GT DAILY [facility] Last Admin: 01/23/17 10:31 Dose: 25 mg Losartan Potassium (Cozaar) 100 mg GT DAILY [facility] Last Admin: 01/23/17 10:31 Dose: 100 mg Multivitamins (Thera Tab) 1 tab PO DAILY [facility] Last Admin: 01/23/17 10:31 Dose: 1 tab Nystatin (Nystop Topical Powder) 0 gm TOP TID [facility] Last Admin: 01/23/17 19:12 Dose: 1 appl Ondansetron HCl (Zofran Inj) 4 mg IVP Q4H PRN PRN Reason: Nausea/Vomiting Last Admin: 01/06/17 21:58 Dose: 4 mg Ondansetron HCl (Zofran Inj) 4 mg IVP ONCE PRN PRN Reason: Nausea/Vomiting Simethicone ([facility]on Chew Tab) [facility] Last Admin: 01/23/17 21:46 Dose: 80 mg Simethicone (Mylicon Chew Tab) 80 mg PO Q6H PRN PRN Reason: GI distress Last Admin: 01/23/17 04:08 Dose: 80 mg - Labs Labs: 01/22/17 06:00 01/22/17 06:00 PT 12.6 Seconds (9.9-11.8) H 01/10/17 12:30 INR 1.17 (0.93-1.08) H 01/10/17 12:30 APTT 33.4 Seconds (23.7-30.8) H 01/10/17 12:30 - Constitutional Appears: Non-toxic, No Acute Distress - Head Exam Head Exam: NORMAL INSPECTION - ENT Exam ENT Exam: Mucous Membranes Moist - Neck Exam Neck Exam: absent: Lymphadenopathy, Meningismus - Respiratory Exam Respiratory Exam: Decreased Breath Sounds - Cardiovascular Exam Cardiovascular Exam: +S1, +S2 - GI/Abdominal Exam GI & Abdominal Exam: Soft. absent: Tenderness Assessment and Plan - Assessment and Plan (Free Text) Plan: Assessment Sepsis due to perirectal abscess S/P I and D POD #28, S/P repeat debridement POD #15, and partial closure and repeat debridement POD #9 - cx growing Strep milleri and E. 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
[2017-01-24] MEDS: Simethicone 80 mg Chewtab PO PRN (21:25)
[2017-01-25] MEDS: Simethicone 80 mg Chewtab PO PRN (00:55)
[2017-01-25] MEDS: Piperacillin/Tazobact 3.375 gm 100 ML IVPB SCH ×4 (05:44→17:17)
[2017-01-25 06:51] VITALS: O2SAT 95
--- NOTE | 2017-01-25 09:14 | PN ---
DATE: 01/25/2017 The patient is seen earlier today in 266, bed 2. No fevers and no chills. PHYSICAL EXAMINATION: VITAL SIGNS: Temperature is 98. Blood pressure is 149/69, respiratory rate of 20, heart rate of 68. HEENT: Unremarkable. NECK: Supple. LUNGS: Have decreased breath sounds. HEART: Normal S1. LABORATORY EXAMINATION: Reveals a white count of 6.8, hemoglobin of 10, platelets of 330. Chemistri es reveal a BUN of 21, creatinine of 1.2. Procalcitonin is 0.11. MEDICATIONS: Review of medications reveals the patient to be on Zosyn. ASSESSMENT AND PLAN: A 76-year-old male with sepsis, perirectal abscess, status post incision and dr gaston post-procedure day #29, status post debridement, second debridement post-procedure day #16, an d a partial closure and repeat debridement post-procedure day #10 with cultures growing Strep milleri , Escherichia coli. Had a wound vacuum-assisted closure, which is out now, currently on Zosyn. The patient no longer has the wound vacuum-assisted closure. Guillaume Spence MD cc: 350 TT: 01/25/2017 09:13:13 Confirmation # [id number] Dictation # [id number] christel
[2017-01-25] MEDS: Multivitamin Therapeutic Tab PO SCH (09:35)
--- NOTE | 2017-01-25 09:37 | CP.PCM.PN ---
Subjective - Date & Time of Evaluation Date of Evaluation: 01/25/17 Time of Evaluation: 08:00 - Subjective Subjective: General Surgery Progress Note for Dr. Pimentel Patient seen and examined at bedside. No acute events overnight. Patient has no current complaints and is aware of TCU transfer. Denies having headache, fever, chills, shortness of breath, chest pain, vomiting or abdominal pain. Objective - Vital Signs/Intake and Output Vital Signs (last 24 hours): Temp Pulse Resp BP Pulse Ox 99 F 68 20 149/69 95 01/25/17 06:00 01/25/17 06:00 01/25/17 06:00 01/25/17 06:00 01/25/17 06:00 Intake and Output: 01/25/17 01/25/17 06:59 18:59 Intake Total 560 200 Output Total 900 Balance -340 200 - Medications Medications: Current Medications Acetaminophen (Tylenol 650mg/20.3ml Solution Ud) 650 mg GT Q4H PRN PRN Reason: Fever >100.4 F Last Admin: 01/24/17 10:42 Dose: 650 mg Al Hydrox/Mg Hydrox/Simethicone (Maalox Plus 30 Ml) 30 ml PO DAILY PRN PRN Reason: Indigestion / Heartburn Last Admin: 01/23/17 04:07 Dose: 30 ml Albuterol/Ipratropium (Duoneb 3 Mg/0.5 Mg (3 Ml) Ud) 3 ml IH Q2H PRN PRN Reason: Shortness of Breath Last Admin: 01/18/17 08:29 Dose: 3 ml Aspirin (Aspirin Chewable) 81 mg PO DAILY [facility] Last Admin: 01/24/17 10:37 Dose: 81 mg Bismuth Subsalicylate (Pepto-Bismol) 262 mg PO DAILY PRN PRN Reason: GI upset Diphenhydramine HCl (Benadryl) 25 mg PO HS PRN PRN Reason: Insomnia Last Admin: 01/25/17 00:55 Dose: 25 mg Ferrous Sulfate (Feosol) 324 mg PO TID [facility] Last Admin: 01/24/17 17:32 Dose: 324 mg Heparin Sodium (Porcine) (Heparin) 5,000 units SC Q8 [facility] Last Admin: 01/25/17 05:46 Dose: 5,000 units Piperacillin Sod/Tazobactam Sod (Zosyn 3.375 In Ns 100ml) 100 mls @ 200 mls/hr IVPB Q6 ADRIANNE PRN Reason: Protocol Stop: 02/01/17 00:01 Last Admin: 01/25/17 05:45 Dose: 200 mls/hr Losartan Potassium (Cozaar) 100 mg GT DAILY [facility] Last Admin: 01/24/17 10:37 Dose: 100 mg Multivitamins (Thera Tab) 1 tab PO DAILY [facility] Last Admin: 01/24/17 10:36 Dose: 1 tab Ondansetron HCl (Zofran Inj) 4 mg IVP ONCE PRN PRN Reason: Nausea/Vomiting Simethicone (Mylicon Chew Tab) 80 mg PO Q6H PRN PRN Reason: GI distress Last Admin: 01/25/17 00:55 Dose: 80 mg - Labs Labs: 01/22/17 06:00 01/22/17 06:00 PT 12.6 Seconds (9.9-11.8) H 01/10/17 12:30 INR 1.17 (0.93-1.08) H 01/10/17 12:30 APTT 33.4 Seconds (23.7-30.8) H 01/10/17 12:30 - Constitutional Appears: Non-toxic, No Acute Distress - Head Exam Head Exam: ATRAUMATIC, NORMAL INSPECTION - Eye Exam Eye Exam: EOMI, Normal appearance - ENT Exam ENT Exam: Mucous Membranes Moist - Neck Exam Neck Exam: Normal Inspection - Respiratory Exam Respiratory Exam: absent: Respiratory Distress - Cardiovascular Exam Cardiovascular Exam: +S1, +S2 - GI/Abdominal Exam GI & Abdominal Exam: Soft. absent: Tenderness - Rectal Exam Additional comments: Wound dressing dry, clean, and intact. No signs of infection appreciated. - Extremities Exam Extremities Exam: Normal Capillary Refill, Normal Inspection. absent: Pedal Edema - Neurological Exam Neurological Exam: Alert, Awake, Oriented x3 - Psychiatric Exam Psychiatric exam: Normal Affect, Normal Mood - Skin Skin Exam: Dry, Warm Assessment and Plan - Assessment and Plan (Free Text) Assessment: 76 year male with zaira-rectal abscess s/p I&D, debridement, and POD #10 from further debridement and delayed partial primary closure Plan: -Continue wound dressing change -Pending TCU placement -Medical management per primary team -Continue regular diet -Pain control -D/w with attending Dr. Pimentel
[2017-01-25 17:51] VITALS: BP 129/57; PULSE 62; RESP 18; TEMP 98.3
--- NOTE | 2017-01-25 19:42 | CP.PCM.DIS ---
Provider - Provider Date of Admission: 12/27/16 12:41 Attending physician: Bowen Orantes MD Primary care physician: Bowen Orantes MD Consults: Surgery - Dr. Cholo WALTER - Dr. Spence GI - Dr. Mota Cardio - Dr. Mora IR - Dr. Carmona Time Spent in preparation of Discharge (in minutes): 30 Hospital Course - Lab Results Lab Results: Micro Results 01/16/17 10:30 Blood-Venous Blood Culture - Final NO GROWTH AFTER 5 DAYS 01/16/17 10:30 Blood-Venous Gram Stain - Final TEST NOT PERFORMED 01/16/17 10:20 Blood-Venous Blood Culture - Final NO GROWTH AFTER 5 DAYS 01/16/17 10:20 Blood-Venous Gram Stain - Final TEST NOT PERFORMED 01/16/17 21:35 Urine,Duncan Urine Culture - Final No Growth (<1,000 CFU/ML) 01/06/17 11:10 Stool C. difficile Antigen & Toxin A,B (M - Final 12/27/16 15:23 Other: Please Indicate Gram Stain - Final 12/27/16 15:23 Other: Please Indicate Anaerobic Culture - Final NO ANAEROBES ISOLATED. 12/27/16 15:23 Other: Please Indicate Wound Culture - Final Escherichia Coli Strep Intermedius/Milleri 12/31/16 03:40 Stool C. difficile Antigen & Toxin A,B (M - Final 12/27/16 19:30 Naris MRSA Culture (Admit) - Final MRSA NOT DETECTED Most Recent Lab Values WBC 6.8 10^3/ul (4.5-11.0) 01/22/17 06:00 RBC 3.42 10^6/uL (3.5-6.1) L 01/22/17 06:00 Hgb 10.3 gm/dL (14.0-18.0) L 01/22/17 06:00 Hct 31.6 % (42.0-52.0) L 01/22/17 06:00 MCV 92.4 fL (80.0-105.0) 01/22/17 06:00 MCH 30.1 pg (25.0-35.0) 01/22/17 06:00 MCHC 32.6 g/dl (31.0-37.0) 01/22/17 06:00 RDW 15.5 % (11.5-14.5) H 01/22/17 06:00 Plt Count 330 10^3/uL (120.0-450.0) 01/22/17 06:00 MPV 10.2 fl (7.0-11.0) 01/22/17 06:00 Gran % 51.6 % (50.0-68.0) 01/19/17 06:30 Lymph % (Auto) 31.9 % (22.0-35.0) 01/19/17 06:30 [place] % (Auto) 9.6 % (1.0-6.0) H 01/19/17 06:30 Eos % (Auto) 6.2 % (1.5-5.0) H 01/19/17 06:30 Baso % (Auto) 0.7 % (0.0-3.0) 01/19/17 06:30 Gran # 3.07 (1.4-6.5) 01/19/17 06:30 Lymph # 1.9 (1.2-3.4) 01/19/17 06:30 [place] # 0.6 (0.1-0.6) 01/19/17 06:30 Eos # 0.4 (0.0-0.7) 01/19/17 06:30 Baso # 0.04 K/mm3 (0.0-2.0) 01/19/17 06:30 PT 12.6 Seconds (9.9-11.8) H 01/10/17 12:30 INR 1.17 (0.93-1.08) H 01/10/17 12:30 APTT 33.4 Seconds (23.7-30.8) H 01/10/17 12:30 pO2 32 mm/Hg (30-55) 12/27/16 19:52 VBG pH 7.36 (7.32-7.43) 12/27/16 19:52 VBG pCO2 37.0 (40-60) L 12/27/16 19:52 VBG HCO3 20.9 mmol/l (21-28) L 12/27/16 19:52 VBG Total CO2 22.0 mmol.L (22-28) 12/27/16 19:52 VBG O2 Sat (Calc) 66.4 % (40-65) H 12/27/16 19:52 VBG Base Excess -4.0 mmol/L (0.0-2.0) L 12/27/16 19:52 VBG Potassium 4.1 mmol/L (3.6-5.2) 12/27/16 19:52 Sodium 135.0 mmol/L (132-148) 12/27/16 19:52 Chloride 108.0 mmol/L (98-107) H 12/27/16 19:52 Glucose 122 mg/dl (75-110) H 12/27/16 19:52 Lactate 1.7 mmol/L (0.7-2.1) 12/27/16 19:52 FiO2 21.0 % 12/27/16 19:52 Sodium 138 mmol/L (132-148) 01/22/17 06:00 Potassium 3.7 mmol/L (3.6-5.0) 01/22/17 06:00 Chloride 103 mmol/L (98-107) 01/22/17 06:00 Carbon Dioxide 29 mmol/L (21-33) 01/22/17 06:00 Anion Gap 10 (10-20) 01/22/17 06:00 BUN 21 mg/dL (7-21) 01/22/17 06:00 Creatinine 1.2 mg/dL (0.5-1.4) 01/22/17 06:00 Est GFR ( Amer) > 60 01/22/17 06:00 Est GFR (Non-Af Amer) 59 01/22/17 06:00 POC Glucose (mg/dL) 161 mg/dL (65-110) H 12/27/16 11:23 Random Glucose 129 mg/dL (70-110) H 01/22/17 06:00 Hemoglobin A1c 6.4 % (4.2-6.5) 12/29/16 07:15 Lactic Acid 1.3 mmol/L (0.7-2.1) 12/29/16 07:15 Calcium 9.0 mg/dL (8.4-10.5) 01/22/17 06:00 Phosphorus 3.8 mg/dL (2.5-4.5) 01/19/17 06:30 Magnesium 1.6 mg/dL (1.7-2.2) L 01/19/17 06:30 Total Bilirubin 0.6 mg/dL (0.2-1.3) 01/22/17 06:00 AST 41 U/L (15-59) 01/22/17 06:00 ALT 39 U/L (7-56) 01/22/17 06:00 Alkaline Phosphatase 59 U/L (38-133) 01/22/17 06:00 Lactate Dehydrogenase 578 U/L (333-699) 12/27/16 10:10 Total Creatine Kinase 946 U/L (35-230) H 12/27/16 10:10 CK-MB (CK-2) 17.5 ng/mL (0.0-3.6) H 12/27/16 10:10 CK-MB (CK-2) % 1.8 % (2.5-3.0) L 12/27/16 10:10 Troponin I 0.03 ng/mL D 12/27/16 10:10 NT-Pro-B Natriuret Pep 3460 pg/mL (0-450) H 12/27/16 14:27 Total Protein 6.2 g/dL (5.8-8.3) 01/22/17 06:00 Albumin 2.7 g/dL (3.0-4.8) L 01/22/17 06:00 Globulin 3.5 gm/dL 01/22/17 06:00 Albumin/Globulin Ratio 0.8 (1.1-1.8) L 01/22/17 06:00 Procalcitonin 0.11 NG/ML (0.19-0.49) L 01/16/17 10:30 TSH 3rd Generation 1.60 mIU/mL (0.46-4.68) 12/29/16 07:15 Venous Blood Potassium 4.1 mmol/L (3.6-5.2) 12/27/16 19:52 Ur Random Creatinine 117 mg/dL 12/29/16 16:45 Hepatitis A IgM Ab Negative (NEGATIVE) 12/27/16 19:52 Hep Bs Antigen Negative (NEGATIVE) 12/27/16 19:52 Hep B Core IgM Ab Negative (NEGATIVE) 12/27/16 19:52 Hepatitis C Antibody Reactive (NEGATIVE) H 12/27/16 19:52 Hepatitis C RNA <15 not detected IU/mL (<15) 01/01/17 06:00 HCV RNA Qual (TMA) Not detected 12/30/16 11:30 HCV RNA Quant (PCR) <1.18 not detected log IU/mL (<1.18) 01/01/17 06:00 Blood Type A POSITIVE 01/10/17 12:30 Antibody Screen Negative 01/10/17 12:30 Crossmatch See Detail 01/10/17 12:30 BBK History Checked Patient has bt 01/10/17 12:30 Discharge Exam - Head Exam Head Exam: ATRAUMATIC, NORMAL INSPECTION Discharge Plan - Follow Up Plan Condition: CRITICAL Disposition: TRANSF TO SNF Instructions: Heart Failure (DC), Rectal Abscess (DC), Rectal Abscess (GEN) Referrals: Bowen Orantes MD [Primary Care Provider] - Follow up with primary
== END 2017-01-25 18:10 | DRG 853 ==
LOC: ED 09:36 → ERH 12:41 → CCU 18:53 → 2RSO 12-29 20:30 → 2RNO 01-09 19:02
PROVIDERS: ADMIT Internal Medicine; ATTEND Internal Medicine
PROC: 0H98XZZ Drainage of Buttock Skin, External Approach (ICD-10-PCS; 2016-12-27)
PROC: 0T9B70Z Drainage of Bladder with Drainage Device, Via Natural or Artificial Opening (ICD-10-PCS; 2016-12-27)
PROC: 3E03328 Introduction of Oxazolidinones into Peripheral Vein, Percutaneous Approach (ICD-10-PCS; 2016-12-27)
PROC: 3E0F7GC Introduction of Other Therapeutic Substance into Respiratory Tract, Via Natural or Artificial Opening (ICD-10-PCS; 2016-12-29)
PROC: 0KBP0ZZ Excision of Left Hip Muscle, Open Approach (ICD-10-PCS; principal; 2017-01-09 09:45)
PROC: 02HV33Z Insertion of Infusion Device into Superior Vena Cava, Percutaneous Approach (ICD-10-PCS; 2017-01-12)
PROC: 30233N1 Transfusion of Nonautologous Red Blood Cells into Peripheral Vein, Percutaneous Approach (ICD-10-PCS; 2017-01-12)
PROC: 0KBP0ZZ Excision of Left Hip Muscle, Open Approach (ICD-10-PCS; 2017-01-15)
DX: A41.9 Sepsis, unspecified organism (principal); J18.9 Pneumonia, unspecified organism; N17.9 Acute kidney failure, unspecified; I44.2 Atrioventricular block, complete; I11.0 Hypertensive heart disease with heart failure; I42.0 Dilated cardiomyopathy; I50.9 Heart failure, unspecified; E83.42 Hypomagnesemia; K61.3 Ischiorectal abscess; K91.3 Postprocedural intestinal obstruction; E43 Unspecified severe protein-calorie malnutrition; I08.3 Combined rheumatic disorders of mitral, aortic and tricuspid valves; I65.29 Occlusion and stenosis of unspecified carotid artery; I70.1 Atherosclerosis of renal artery; K21.9 Gastro-esophageal reflux disease without esophagitis; I25.10 Atherosclerotic heart disease of native coronary artery without angina pectoris; E78.5 Hyperlipidemia, unspecified; N35.9 Urethral stricture, unspecified; R33.9 Retention of urine, unspecified; R65.20 Severe sepsis without septic shock; E11.9 Type 2 diabetes mellitus without complications; I73.9 Peripheral vascular disease, unspecified; E66.9 Obesity, unspecified; D64.9 Anemia, unspecified; B19.20 Unspecified viral hepatitis C without hepatic coma; Y95 Nosocomial condition; G47.00 Insomnia, unspecified; E87.6 Hypokalemia; Z85.46 Personal history of malignant neoplasm of prostate; Z95.0 Presence of cardiac pacemaker; Z95.5 Presence of coronary angioplasty implant and graft; Z87.891 Personal history of nicotine dependence; B96.20 Unspecified Escherichia coli [E. coli] as the cause of diseases classified elsewhere

== ENCOUNTER 2017-01-25 18:10 | Inpatient (IN) | payer MEDICARE ==
[2017-01-25 18:35] VITALS: BMI 29.6
[2017-01-25] MEDS ORDERED: Alum-Mag Hydrox-Simethicone Susp (30 mL) PO PRN (18:40)
[2017-01-25] MEDS ORDERED: Albuterol-Ipratrop 3 mg / 0.5 (3 ml) UD IH PRN (18:41)
[2017-01-25] MEDS ORDERED: Bismuth Subsalicylate 262 mg/15 ml Sus (240 ml) PO PRN (18:43)
[2017-01-25] MEDS ORDERED: Simethicone 80 mg Chewtab PO PRN (18:52)
[2017-01-25] MEDS ORDERED: Pneumococcal 23-Valent Vaccine IM ONE (23:31)
[2017-01-26] MEDS: Piperacillin/Tazobact 3.375 gm 100 ML IVPB SCH ×4 (05:34→18:04)
--- NOTE | 2017-01-26 09:10 | CP.PCM.HP ---
<Merlin Barragan - Last Filed: 01/26/17 19:04> History of Present Illness - History of Present Illness History of Present Illness: H&P for Dr. Orantes/Dr. Sharpe service - Merlin Barragan PGY1 cc: rectal pain HPI: Patient is a 76 yo male with history of CAD s/p stent placement, prostate cancer s/p robotic reconstruction, GERD, hyperlipidemia, 3rd degree AV block s/ p permanent pacemaker placement, dilated cardiomyopathy (latest MUGA scan with LVEF of 60%), hypertension presented c/o rectal pain. Patient reported that the rectal pain had been ongoing for 2 weeks prior to presentation and was associated with constipation. Patient was instructed by his PMD to report to emergency room. He was subsequently evaluated by surgery and determined to have a zaira-rectal abscess that required incision and drainage followed by debridement and repeated debridement. He has required IV antibiotics and daily wound care. He was subsequently transferred to TCU for continued IV antibiotics , daily wound care and physical therapy. Patient denies fever, chills, cough, chest pain, SOB, headache, dizziness, nausea, vomiting or diarrhea. 12point ROS as per HPI above, otherwise negative PMHx: CAD with stents in the past, h/o prostate ca s/p robotic reconstruction ( 6 yrs ago), Gerd, hld, 3rd degree AV block s/p PPM, h/o dilated cardiomyopathy ( latest MUGA scan with LVEF of 60%), htn, h/o syncope. PSHx: Robotic prostrate cancer recontruciton, back surgery, PPM, carotid endarterectomy ( last year) Allergies: NKDA Social Hx: former smoker, quit 4 yrs ago, denies alcohol or illicit drug use Family Hx: noncontributory Present on Admission - Present on Admission Any Indicators Present on Admission: No Past Patient History - Tetanus Immunizations Tetanus Immunization: Unknown - Past Medical History & Family History Past Medical History?: Yes - Past Social History Smoking Status: Former Smoker - CARDIAC Hx Cardiac Disorders: Yes Hx Hypertension: Yes - PULMONARY Hx Respiratory Disorders: No - NEUROLOGICAL Hx Neurological Disorder: No - HEENT Hx HEENT Problems: Yes - RENAL Hx Chronic Kidney Disease: Yes Other/Comment: renal stent 2014 - ENDOCRINE/METABOLIC Hx Endocrine Disorders: No - HEMATOLOGICAL/ONCOLOGICAL Hx Blood Transfusions: No - INTEGUMENTARY Hx Dermatological Problems: No - MUSCULOSKELETAL/RHEUMATOLOGICAL Hx Falls: No - GASTROINTESTINAL Hx Gastrointestinal Disorders: Yes (DIVERTICULITIS,CONSTIPATION,GERD) - GENITOURINARY/GYNECOLOGICAL Hx Genitourinary Disorders: Yes (RENAL STENT) Hx Reproductive Disorders: Yes (PROSTATE CA -ROBOTIC SX) - PSYCHIATRIC Hx Psychophysiologic Disorder: No Hx Emotional Abuse: No Hx Physical Abuse: No Hx Substance Use: No - SURGICAL HISTORY Hx Surgeries: Yes - ANESTHESIA Hx Anesthesia Reactions: No Hx Malignant Hyperthermia: No Meds Allergies/Adverse Reactions: Allergies Allergy/AdvReac Type Severity Reaction Status Date / Time No Known Allergies Allergy Verified 12/27/16 09:51 Physical Exam - Constitutional Appears: Well, Non-toxic, No Acute Distress - Head Exam Head Exam: ATRAUMATIC, NORMAL INSPECTION, NORMOCEPHALIC - Eye Exam Eye Exam: EOMI, PERRL - ENT Exam ENT Exam: Mucous Membranes Moist - Neck Exam Neck exam: Positive for: Normal Inspection - Respiratory Exam Respiratory Exam: Clear to Auscultation Bilateral. absent: Rales, Rhonchi, Wheezes - Cardiovascular Exam Cardiovascular Exam: RRR, +S1, +S2. absent: Gallop, Rubs - GI/Abdominal Exam GI & Abdominal Exam: Soft. absent: Distended, Firm, Guarding, Rebound, Tenderness - Neurological Exam Neurological exam: Alert, CN II-XII Intact, Oriented x3 - Skin Skin Exam: Dry, Intact, Normal Color, Warm Results - Vital Signs Recent Vital Signs: Last Vital Signs Temp 98.2 F 01/26/17 05:58 Pulse 60 01/26/17 05:58 Resp 18 01/26/17 05:58 BP 134/59 L 01/26/17 05:58 Pulse Ox 98 01/26/17 05:58 Assessment & Plan - Assessment and Plan (Free Text) Plan: 76yo male with history of hypertension, dilated cardiomyopathy, 3rd degree AV block s/p pace maker placement, prostate ca s/p robotic reconstruction surgery admitted for zaira-rectal abscess s/p surgical intervention 1. Perirectal abscess -Patient is s/p incision & drainage followed by debridement and further debridement (POD#10) -Continue course of zosyn per ID recommendations -Blood and urine cultures have been negative -Wound vac discontinued per surgical team recommendations -Continue with wound care -Afebrile, no leukocytosis 2. Anemia, resolving -H/H has been stable -No overt signs of bleeding; Hgb has been improving 3. Abdominal distension, resolving -Continue with simethicone 4. 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 CAD w/ stents -continue ASA, hctz and cozaar 6. DVT and GI prophylaxis -SCD's/Protonix 7. Disposition -Patient currently undergoing rehabiliation and wound care in the TCU. He requires IV antibiotics and daily wound dressing changes. Tolerating physical therapy well. Patient seen, examined, discussed with Dr. Sharpe - Date & Time Date: 01/26/17 Time: 09:08 <Woody Sharpe - Last Filed: 01/29/17 17:46> Results - Vital Signs Recent Vital Signs: Last Vital Signs Temp 97.5 F L 01/29/17 16:00 Pulse 62 01/29/17 16:00 Resp 18 01/29/17 16:00 BP 114/96 H 01/29/17 16:00 Pulse Ox 93 L 01/29/17 16:00 - Labs Result Diagrams: 01/29/17 07:00 01/29/17 07:00 Labs: Laboratory Results - last 24 hr 01/29/17 01/29/17 07:00 07:00 WBC 6.2 RBC 3.65 Hgb 11.1 L Hct 34.1 L MCV 93.4 MCH 30.4 MCHC 32.6 RDW 15.5 H Plt Count 386 MPV 10.0 Sodium 140 Potassium 4.3 Chloride 105 Carbon Dioxide 28 Anion Gap 11 BUN 30 H Creatinine 1.2 Est GFR ( Amer) > 60 Est GFR (Non-Af Amer) 59 Random Glucose 113 H Calcium 9.3 Total Bilirubin 0.5 AST 39 ALT 43 Alkaline Phosphatase 63 Total Protein 6.8 Albumin 3.2 Globulin 3.6 Albumin/Globulin Ratio 0.9 L Attending/Attestation - Attestation I have personally seen and examined this patient.: Yes I have fully participated in the care of the patient.: Yes I have reviewed all pertinent clinical information: Yes Notes (Text): 01/29/17 17:46 Medical record note made by the resident after discussion with my direction and input after the patient was personally seen and examined by me. I have reviewed the chart and agree that the record accurately reflects by personal performance of the history, physical exam, data review, and medical decision-making, in the course for the patient. I have also personally directed the plan of care.
--- NOTE | 2017-01-26 09:30 | PN ---
DATE: 01/26/2017 SUBJECTIVE: The patient is lying in bed on his right side. The patient did have some reflux yesterd ay. This has improved with Protonix. He denies any abdominal pain, nausea and vomiting. PHYSICAL EXAMINATION: VITAL SIGNS: Reveal temperature of 98.2, blood pressure 134/59, heart rate is 60. ABDOMEN: Soft, nontender, no mass. No new laboratory data are available. IMPRESSION: A 76-year-old male status post multiple drainage procedures for initial rectal abscess, status post wound VAC insertion to help healing of his deep abscess wound status post partial small-b owel obstruction, which has resolved. The patient now has deconditioning and is on transitional care . RECOMMENDATIONS: 1. Continue physical therapy. 2. Continue local wound care of his left ischial rectal abscess. Bowen Mota MD cc: 79 TT: 01/26/2017 09:30:26 Confirmation # [id number] Dictation # [id number]
--- NOTE | 2017-01-26 10:19 | CP.PCM.PN ---
Subjective - Date & Time of Evaluation Date of Evaluation: 01/26/17 Time of Evaluation: 07:50 - Subjective Subjective: General Surgery Progress Note for Dr. Pimentel Patient seen and examined at bedside. No acute events overnight. Patient was transferred to TCU overnight. Patient is tolerating pain well. Denies headache, fever, chills, nausea or vomiting. Objective - Vital Signs/Intake and Output Vital Signs (last 24 hours): Temp Pulse Resp BP Pulse Ox 98.2 F 60 18 134/59 L 98 01/26/17 05:58 01/26/17 05:58 01/26/17 05:58 01/26/17 05:58 01/26/17 05:58 Intake and Output: 01/26/17 01/26/17 06:59 18:59 Intake Total 200 Balance 200 - Medications Medications: Current Medications Acetaminophen (Tylenol 650mg/20.3ml Solution Ud) 650 mg PO Q4H PRN PRN Reason: Temperature Al Hydrox/Mg Hydrox/Simethicone (Maalox Plus 30 Ml) 30 ml PO DAILY PRN PRN Reason: Indigestion / Heartburn Albuterol/Ipratropium (Duoneb 3 Mg/0.5 Mg (3 Ml) Ud) 3 ml IH Q2H PRN PRN Reason: Shortness of Breath Aspirin (Aspirin Chewable) 81 mg PO DAILY [facility] Bismuth Subsalicylate (Pepto-Bismol) 262 mg PO DAILY PRN PRN Reason: GI distress Diphenhydramine HCl (Benadryl) 25 mg PO HS PRN PRN Reason: Insomnia Last Admin: 01/26/17 00:00 Dose: 25 mg Ferrous Sulfate (Feosol) 324 mg PO TID [facility] Heparin Sodium (Porcine) (Heparin) 5,000 units SC Q8 [facility] PRN Reason: Protocol Last Admin: 01/26/17 05:35 Dose: 5,000 units Piperacillin Sod/Tazobactam Sod (Zosyn 3.375 In Ns 100ml) 100 mls @ 200 mls/hr IVPB Q6 [facility] PRN Reason: Protocol Stop: 02/02/17 12:01 Losartan Potassium (Cozaar) 100 mg PO DAILY [facility] Multivitamins (Thera Tab) 1 tab PO 0800 [facility] Ondansetron HCl (Zofran Inj) 4 mg IVP ONCE PRN PRN Reason: Nausea/Vomiting Pantoprazole Sodium (Protonix Inj) 40 mg IVP DAILY [facility] Simethicone (Mylicon Chew Tab) 80 mg PO Q6H PRN PRN Reason: GI distress - Constitutional Appears: Non-toxic, No Acute Distress - Head Exam Head Exam: ATRAUMATIC, NORMAL INSPECTION - Eye Exam Eye Exam: EOMI, Normal appearance - ENT Exam ENT Exam: Mucous Membranes Moist - Neck Exam Neck Exam: Normal Inspection - Respiratory Exam Respiratory Exam: absent: Respiratory Distress - Cardiovascular Exam Cardiovascular Exam: +S1, +S2 - GI/Abdominal Exam GI & Abdominal Exam: Soft. absent: Hernia - Rectal Exam Additional comments: Wound cleaned with sterile gauze and NS. Light packing at wound base, covered with gauze and Tegaderm. No signs of infection or active bleeding appreciated. - Extremities Exam Extremities Exam: Normal Capillary Refill, Normal Inspection - Neurological Exam Neurological Exam: Alert, Awake, Oriented x3 - Psychiatric Exam Psychiatric exam: Normal Affect, Normal Mood - Skin Skin Exam: Dry, Normal Color, Warm Assessment and Plan - Assessment and Plan (Free Text) Assessment: 76 year male with zaira-rectal abscess s/p I&D, debridement, and POD #11 from further debridement and delayed partial primary closure Plan: -Continue wound dressing change daily. Light packing at wound base, rinse with water if contaminated. -Medical management per primary team -Continue regular diet -Pain control -D/w with attending Dr. Pimentel
[2017-01-26] MEDS: Multivitamin Therapeutic Tab PO SCH (10:34)
--- NOTE | 2017-01-26 17:27 | CP.PCM.CON ---
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 He has underwent numerous debridements, partial closure and wound vacuum placement and has been on antibiotics. He has been doing well and is now transferred to [facility] for continued medical therapy and physical rehab. Infectious Diseases consult is requested to continue his antibiotic management. Currently the patient still has pain in the perirectal area, but no fever or chills, no nausea or vomiting, no abdominal pain, no headache or dizziness, no chest pain, no SOB, no diarrhea , no dysuria. Review of Systems - Review of Systems All systems: reviewed and no additional remarkable complaints except (as per HPI ) Past Patient History - Tetanus Immunizations Tetanus Immunization: Unknown - Past Medical History & Family History Past Medical History?: Yes - Past Social History Smoking Status: Former Smoker - CARDIAC Hx Cardiac Disorders: Yes Hx Hypertension: Yes - PULMONARY Hx Respiratory Disorders: No - NEUROLOGICAL Hx Neurological Disorder: No - HEENT Hx HEENT Problems: Yes - RENAL Hx Chronic Kidney Disease: Yes Other/Comment: renal stent 2013 - ENDOCRINE/METABOLIC Hx Endocrine Disorders: No - HEMATOLOGICAL/ONCOLOGICAL Hx Blood Transfusions: No - INTEGUMENTARY Hx Dermatological Problems: No - MUSCULOSKELETAL/RHEUMATOLOGICAL Hx Falls: No - GASTROINTESTINAL Hx Gastrointestinal Disorders: Yes (DIVERTICULITIS,CONSTIPATION,GERD) - GENITOURINARY/GYNECOLOGICAL Hx Genitourinary Disorders: Yes (RENAL STENT) Hx Reproductive Disorders: Yes (PROSTATE CA -ROBOTIC SX) - PSYCHIATRIC Hx Psychophysiologic Disorder: No Hx Emotional Abuse: No Hx Physical Abuse: No Hx Substance Use: No - SURGICAL HISTORY Hx Surgeries: Yes - ANESTHESIA Hx Anesthesia Reactions: No Hx Malignant Hyperthermia: No Meds Allergies/Adverse Reactions: Allergies Allergy/AdvReac Type Severity Reaction Status Date / Time No Known Allergies Allergy Verified 12/27/16 09:51 - Medications Medications: Current Medications Acetaminophen (Tylenol 650mg/20.3ml Solution Ud) 650 mg PO Q4H PRN PRN Reason: Temperature Al Hydrox/Mg Hydrox/Simethicone (Maalox Plus 30 Ml) 30 ml PO DAILY PRN PRN Reason: Indigestion / Heartburn Albuterol/Ipratropium (Duoneb 3 Mg/0.5 Mg (3 Ml) Ud) 3 ml IH Q2H PRN PRN Reason: Shortness of Breath Aspirin (Aspirin Chewable) 81 mg PO DAILY [facility] Bismuth Subsalicylate (Pepto-Bismol) 262 mg PO DAILY PRN PRN Reason: GI distress Diphenhydramine HCl (Benadryl) 25 mg PO HS PRN PRN Reason: Insomnia Last Admin: 01/26/17 00:00 Dose: 25 mg Ferrous Sulfate (Feosol) 324 mg PO TID [facility] Heparin Sodium (Porcine) (Heparin) 5,000 units SC Q8 [facility] PRN Reason: Protocol Last Admin: 01/26/17 05:35 Dose: 5,000 units Piperacillin Sod/Tazobactam Sod (Zosyn 3.375 In Ns 100ml) 100 mls @ 200 mls/hr IVPB Q6 [facility] PRN Reason: Protocol Stop: 02/02/17 12:01 Losartan Potassium (Cozaar) 100 mg PO DAILY [facility] Multivitamins (Thera Tab) 1 tab PO 0800 [facility] Ondansetron HCl (Zofran Inj) 4 mg IVP ONCE PRN PRN Reason: Nausea/Vomiting Pantoprazole Sodium (Protonix Inj) 40 mg IVP DAILY [facility] Simethicone (Mylicon Chew Tab) 80 mg PO Q6H PRN PRN Reason: GI distress Physical Exam - Constitutional Appears: Non-toxic, No Acute Distress - Head Exam Head Exam: NORMAL INSPECTION - ENT Exam ENT Exam: Mucous Membranes Moist - Neck Exam Neck exam: Negative for: Lymphadenopathy, Meningismus - Respiratory Exam Respiratory Exam: Decreased Breath Sounds - Cardiovascular Exam Cardiovascular Exam: +S1, +S2 - GI/Abdominal Exam GI & Abdominal Exam: Soft. absent: Tenderness Results - Vital Signs Recent Vital Signs: Last Vital Signs Temp 98.2 F 01/26/17 05:58 Pulse 60 01/26/17 05:58 Resp 18 01/26/17 05:58 BP 134/59 L 01/26/17 05:58 Pulse Ox 98 01/26/17 05:58 Assessment & Plan - Assessment and Plan (Free Text) Plan: Assessment Sepsis due to perirectal abscess S/P I and D POD #30, S/P repeat debridement POD #17, and partial closure and repeat debridement POD #11 - cx growing Strep milleri and E. coli; S/P wound vacuum placement and now removed lower lobe HCAP, resolved CAD S/P PCI prostate ca s/p robotic reconstruction 6 years ago GERD dyslipidemia history of 3rd degree AV block s/p permanent pacemaker placement history of dilated cardiomyopathy HTN history of back surgery S/P carotid endarterectomy Plan continue Zosyn - continue to monitor clinically and follow up further plans of surgery
[2017-01-26] MEDS: Acetaminophen 650mg/20.3ml solution UD PO PRN (18:04)
--- NOTE | 2017-01-26 19:27 | CON ---
DATE: 01/26/2017 REASON FOR CONSULTATION AND FOLLOWUP: Continuity of the care in the transitional care unit. BRIEF CLINICAL HISTORY: This is a 76-year-old male with past medical history significant for coronar y artery disease status post PTCA 2012, status post repeat catheterization in 2013, patent stent. [place] s a history of a stress test in 2014, patent stent. History of permanent pacemaker, admitted with re ctal abscess. The patient was initially in the medical floor, status post drainage, now patient is t ransferred to the transitional care unit for the continuity of care. The patient denies any chest pa in, shortness of breath, any palpitation. PAST MEDICAL HISTORY: History of coronary artery disease, history of permanent pacemaker. SOCIAL HISTORY: Denies ____. Denies any history of smoking. Denies any history of alcohol abuse. CURRENT MEDICATIONS: The patient is taking aspirin, losartan, Benadryl, DuoNeb nebulizer, ferrous [place] lfate, heparin, multivitamin. REVIEW OF SYSTEMS: As per HPI. PHYSICAL EXAMINATION: VITAL SIGNS: Temperature afebrile, heart rate 60, blood pressure was 116/62. HEENT: PERRLA. Extraocular muscles intact. NECK: Supple. No carotid bruits. No thyromegaly. CHEST: Clear to auscultation. HEART: S1, S2 regular. ABDOMEN: Soft. EXTREMITIES: Clubbing and cyanosis negative. LABORATORY DATA: Blood workup as follows: WBC 6.8, hemoglobin 10.3, hematocrit 31.6, platelet count 330. Chemistry shows sodium 130, potassium 3.7, chloride 103, carbon dioxide 29, anion gap of 10, B UN 20, creatinine 1.2. Total protein 6.2, albumin 2.7. IMPRESSION: Protein calorie malnutrition, which was present since admission in TCU, diabetes, hypert ension, hyperlipidemia, rectal abscess, coronary artery disease, status post a stent, history of perm anent pacemaker, mildly decreased left ventricular function. RECOMMENDATION: Continue antibiotic, continue local wound care. Increase nutrition support. Contin ue iron supplement. Continue DVT prophylaxis, multivitamin, continue losartan. We will follow with you. CV status is stable. Thank you, ____, for providing the opportunity in taking care of this patient. Will follow with you. Gale Mora MD cc: [facility] TT: 01/26/2017 19:26:59 Confirmation # [id number] Dictation # [id number]
[2017-01-27] MEDS: Piperacillin/Tazobact 3.375 gm 100 ML IVPB SCH ×4 (05:21→17:56)
[2017-01-27] MEDS: Multivitamin Therapeutic Tab PO SCH (08:50)
--- NOTE | 2017-01-27 10:06 | CP.PCM.PN ---
Subjective - Date & Time of Evaluation Date of Evaluation: 01/27/17 Time of Evaluation: 10:03 - Subjective Subjective: Surgery for Dr. Pimentel Pt is doing ok. Pain controlled. dressing changed this AM. Soft stool. Able to clean up after BM. Objective - Vital Signs/Intake and Output Vital Signs (last 24 hours): Temp Pulse Resp BP Pulse Ox 98.2 F 60 16 140/51 L 97 01/27/17 05:47 01/27/17 05:47 01/27/17 05:47 01/27/17 05:47 01/27/17 05:47 Intake and Output: 01/27/17 01/27/17 06:59 18:59 Intake Total 480 Balance 480 - Medications Medications: Current Medications Acetaminophen (Tylenol 650mg/20.3ml Solution Ud) 650 mg PO Q4H PRN PRN Reason: Temperature Last Admin: 01/26/17 18:04 Dose: 650 mg Al Hydrox/Mg Hydrox/Simethicone (Maalox Plus 30 Ml) 30 ml PO DAILY PRN PRN Reason: Indigestion / Heartburn Albuterol/Ipratropium (Duoneb 3 Mg/0.5 Mg (3 Ml) Ud) 3 ml IH Q2H PRN PRN Reason: Shortness of Breath Aspirin (Aspirin Chewable) 81 mg PO DAILY [facility] Last Admin: 01/26/17 08:31 Dose: 81 mg Bismuth Subsalicylate (Pepto-Bismol) 262 mg PO DAILY PRN PRN Reason: GI distress Diphenhydramine HCl (Benadryl) 25 mg PO HS PRN PRN Reason: Insomnia Last Admin: 01/26/17 00:00 Dose: 25 mg Ferrous Sulfate (Feosol) 324 mg PO TID [facility] Last Admin: 01/26/17 18:03 Dose: 324 mg Heparin Sodium (Porcine) (Heparin) 5,000 units SC Q8 [facility] PRN Reason: Protocol Last Admin: 01/27/17 05:23 Dose: 5,000 units Piperacillin Sod/Tazobactam Sod (Zosyn 3.375 In Ns 100ml) 100 mls @ 200 mls/hr IVPB Q6 [facility] PRN Reason: Protocol Stop: 02/02/17 12:01 Last Admin: 01/27/17 05:21 Dose: 200 mls/hr Losartan Potassium (Cozaar) 100 mg PO DAILY [facility] Last Admin: 01/26/17 10:32 Dose: 100 mg Multivitamins (Thera Tab) 1 tab PO 0800 [facility] Last Admin: 01/27/17 08:50 Dose: 1 tab Ondansetron HCl (Zofran Inj) 4 mg IVP ONCE PRN PRN Reason: Nausea/Vomiting Pantoprazole Sodium (Protonix Inj) 40 mg IVP DAILY [facility] Last Admin: 01/26/17 10:38 Dose: 40 mg Simethicone (Mylicon Chew Tab) 80 mg PO Q6H PRN PRN Reason: GI distress - Constitutional Appears: No Acute Distress - Head Exam Head Exam: ATRAUMATIC, NORMAL INSPECTION, NORMOCEPHALIC - Eye Exam Eye Exam: EOMI, Normal appearance, PERRL Pupil Exam: NORMAL ACCOMODATION, PERRL - ENT Exam ENT Exam: Mucous Membranes Moist, Normal Exam - Neck Exam Neck Exam: Full ROM, Normal Inspection. absent: Lymphadenopathy - Respiratory Exam Respiratory Exam: Clear to Ausculation Bilateral, NORMAL BREATHING PATTERN - Cardiovascular Exam Cardiovascular Exam: REGULAR RHYTHM, +S1, +S2. absent: Murmur - GI/Abdominal Exam GI & Abdominal Exam: Soft, Normal Bowel Sounds. absent: Firm, Guarding, Rigid, Tenderness - Rectal Exam Rectal Exam: absent: Black Stool, Bloody Stool, Hemorrhoids, Fecal Impaction Additional comments: Incision has partial closures. Dressing soild. Changed. minimal drainage. - Exam Exam: Circumcision, NORMAL INSPECTION External exam: NORMAL EXTERNAL EXAM Speculum exam: NORMAL SPECULUM EXAM Bimanual exam: NORMAL BIMANUAL EXAM - Extremities Exam Extremities Exam: Full ROM, Normal Capillary Refill - Back Exam Back Exam: NORMAL INSPECTION - Neurological Exam Neurological Exam: Alert, Awake, CN II-XII Intact, Oriented x3 - Psychiatric Exam Psychiatric exam: Normal Affect, Normal Mood - Skin Skin Exam: Erythema, Warm
[2017-01-27] MEDS: Acetaminophen 650mg/20.3ml solution UD PO PRN ×2 (11:28→18:00)
--- NOTE | 2017-01-27 13:27 | PN ---
DATE: 01/27/2017 I saw him resting comfortably in bed with family talking. He is in good spirits. He is feeling better from a week ago and the last time I saw him. He has a perirectal abscess, hypertension, anemia. He has a pacemaker, high cholesterol, cardiomyopathy, status post carotid endarterectomy in the past. He has sepsis. He is on IV antibiotics. He is comfortable in bed. He is eating in bed. He is alert, happy and smiling. PHYSICAL EXAMINATION: VITAL SIGNS: Temp 98.2, 60 pulse, 140/51 blood pressure, 16 respiratory rate, 97% O2 sat on room air. HEENT: Head is atraumatic, normocephalic. HEART: Regular rate. LUNGS: Decreased breath sounds but clear, no wheezes, no rhonchi. ABDOMEN: Soft, morbidly obese, nontender, positive bowel sounds, no guarding, no rebound. EXTREMITIES: Have no edema. RECTAL: He has got a perirectal abscess that is in healing stages. MEDICATIONS: He is on aspirin, Benadryl, Cozaar, DuoNeb, iron, heparin, Maalox , Pepto-Bismol, Protonix, multivitamins, Tylenol, Zofran and Zosyn. LABORATORY DATA: No labs, will order labs for tomorrow. We will continue with aggressive treatment and care. He is being seen by GI, infectious disease, cardiology, pulmonology and interventional radiology and we will keep with aggressive care on this young man for Dr. Orantes who is off. Alexis Bernstein DO cc: [id number] TT: 01/27/2017 13:25:46 Confirmation # [id number] Dictation # [id number] genevieve DRAKE
[2017-01-28] MEDS: Piperacillin/Tazobact 3.375 gm 100 ML IVPB SCH ×4 (00:03→18:03)
[2017-01-28] MEDS: Acetaminophen 650mg/20.3ml solution UD PO PRN ×3 (05:23→21:53)
[2017-01-28 07:09] LABS: ALB/GLOB RATIO 0.9 (1.1-1.8); ALKALINE PHOSPHATASE 58 U/L (38-133); ALT/SGPT 45 U/L (7-56); AST/SGOT 39 U/L (15-59); BILIRUBIN,TOTAL 0.5 mg/dL (0.2-1.3); BLOOD UREA NITROGEN 31 mg/dL (7-21); CALCIUM 9.1 mg/dL (8.4-10.5); CARBON DIOXIDE 28 mmol/L (21-33); CHLORIDE 105 mmol/L (98-107); GFR AFRICAN-AMERICAN > 60; GLUCOSE,RANDOM 124 mg/dL (70-110); POTASSIUM 4.1 mmol/L (3.6-5.0); SODIUM 140 mmol/L (132-148); TOTAL PROTEIN 6.7 g/dL (5.8-8.3)
[2017-01-28 07:13] LABS: HEMATOCRIT 32.6 % (42.0-52.0); MEAN CELL VOLUME 93.1 fL (80.0-105.0); MEAN CORPUSCULAR HEMOGLOBIN 31.4 pg (25.0-35.0); MEAN CORPUSCULAR HGB CONC 33.7 g/dl (31.0-37.0); RED CELL DISTRIBUTION WIDTH 15.5 % (11.5-14.5)
[2017-01-28] MEDS: Multivitamin Therapeutic Tab PO SCH (08:19)
--- NOTE | 2017-01-28 08:19 | CP.PCM.PN ---
Subjective - Date & Time of Evaluation Date of Evaluation: 01/28/17 Time of Evaluation: 07:30 - Subjective Subjective: General Surgery Pt S&E, NAEO. Dressing changed. Pt having more formed stools. No complaints at this time Objective - Vital Signs/Intake and Output Vital Signs (last 24 hours): Temp Pulse Resp BP Pulse Ox 98.2 F 60 16 140/51 L 97 01/27/17 05:47 01/27/17 05:47 01/27/17 05:47 01/27/17 05:47 01/27/17 05:47 - Medications Medications: Current Medications Acetaminophen (Tylenol 650mg/20.3ml Solution Ud) 650 mg PO Q4H PRN PRN Reason: Temperature Last Admin: 01/28/17 05:23 Dose: 650 mg Al Hydrox/Mg Hydrox/Simethicone (Maalox Plus 30 Ml) 30 ml PO DAILY PRN PRN Reason: Indigestion / Heartburn Albuterol/Ipratropium (Duoneb 3 Mg/0.5 Mg (3 Ml) Ud) 3 ml IH Q2H PRN PRN Reason: Shortness of Breath Aspirin (Aspirin Chewable) 81 mg PO DAILY [facility] Last Admin: 01/27/17 10:05 Dose: 81 mg Bismuth Subsalicylate (Pepto-Bismol) 262 mg PO DAILY PRN PRN Reason: GI distress Diphenhydramine HCl (Benadryl) 25 mg PO HS PRN PRN Reason: Insomnia Last Admin: 01/27/17 23:32 Dose: 25 mg Ferrous Sulfate (Feosol) 324 mg PO TID [facility] Last Admin: 01/27/17 17:56 Dose: 324 mg Heparin Sodium (Porcine) (Heparin) 5,000 units SC Q8 [facility] PRN Reason: Protocol Last Admin: 01/28/17 05:21 Dose: 5,000 units Piperacillin Sod/Tazobactam Sod (Zosyn 3.375 In Ns 100ml) 100 mls @ 200 mls/hr IVPB Q6 [facility] PRN Reason: Protocol Stop: 02/02/17 12:01 Last Admin: 01/28/17 05:22 Dose: 200 mls/hr Losartan Potassium (Cozaar) 100 mg PO DAILY [facility] Last Admin: 01/27/17 10:06 Dose: 100 mg Multivitamins (Thera Tab) 1 tab PO 0800 [facility] Last Admin: 01/27/17 08:50 Dose: 1 tab Mupirocin (Bactroban Ointment) 0 gm TOP BID [facility] PRN Reason: Protocol Last Admin: 01/27/17 21:56 Dose: 1 appl Ondansetron HCl (Zofran Inj) 4 mg IVP ONCE PRN PRN Reason: Nausea/Vomiting Pantoprazole Sodium (Protonix Inj) 40 mg IVP DAILY [facility] Last Admin: 01/27/17 10:07 Dose: 40 mg Simethicone (Mylicon Chew Tab) 80 mg PO Q6H PRN PRN Reason: GI distress - Labs Labs: 01/28/17 06:30 01/28/17 06:30 - Constitutional Appears: Non-toxic, No Acute Distress - Head Exam Head Exam: ATRAUMATIC, NORMOCEPHALIC - Eye Exam Eye Exam: EOMI. absent: Scleral icterus - Respiratory Exam Respiratory Exam: NORMAL BREATHING PATTERN. absent: Respiratory Distress - Rectal Exam Additional comments: Wound cleaned with sterile gauze and NS. Covered with gauze and Tegaderm. Good granulation tissue - Neurological Exam Neurological Exam: Alert, Awake, Oriented x3 - Skin Skin Exam: Dry, Warm Assessment and Plan - Assessment and Plan (Free Text) Assessment: 76M with zaira-rectal abscess s/p I&D, debridement, and POD #13 from further debridement and delayed partial primary closure Plan: -Continue wound dressing change daily. Light packing at wound base, rinse with water if contaminated. -Medical management per primary team Will D/W Dr. Loren Kim PGY3
--- NOTE | 2017-01-28 11:37 | PN ---
DATE: 01/28/2017 I saw the patient resting comfortably in the transitional care unit. He slept well. He is alert, he is comfortable. He is eating, no acute distress. No chest pain or shortness of breath, no abdomina l pain. He is in good spirits. He gets out of bed to chair and is walking well. I am seeing him fo r Dr. Orantes who is off today. His numbers are [id number]. MEDICATIONS: He is on aspirin, Bactroban cream, Benadryl, Cozaar, DuoNeb, Feosol, heparin, Maalox, M ylicon, Pepto-Bismol, Protonix, Thera-Tabs, Tylenol, Zofran and Zosyn IV. His blisters are getting b richardson with the Bactroban cream. He is happy about that. PHYSICAL EXAMINATION: VITAL SIGNS: Temp 98.2, 60 pulse, 140/51 blood pressure, 16 respiratory rate, 97% O2 sat on room air . HEENT: Head is atraumatic, normocephalic. Throat is moist. NECK: Supple. Lips are improving with antibiotic cream. The pimples are getting smaller. HEART: Regular rate. LUNGS: Decreased breath sounds but clear to auscultation. ABDOMEN: Soft, obese, nontender. No guarding, no rebound. EXTREMITIES: No edema and his perirectal abscess is improving. LABORATORY DATA: He has a 6 white count, 11 hemoglobin, 32.6 hematocrit with 370 platelets. Sodium 140, potassium 4.1, BUN 31, creatinine 1.2, GFR is 59. Sugar is 124, calcium is 9.1, total bili is 0 .5, AST is 39, ALT is 45, alkaline phosphatase is 58, total protein 6.7, albumin 3.1, globulin 3.6. ASSESSMENT AND PLAN: He is going to be seen by surgery, cardiology, and infectious disease. We will continue with aggressive treatment and care. We will check his labs tomorrow. He is here for sepsi s due to perirectal abscess status post incision and drainage, CAD, prostate cancer history, GERD, dy slipidemia, hypertension. Alexis Bernstein DO cc: [id number] TT: 01/28/2017 11:37:28 Confirmation # [id number] Dictation # [id number]
--- NOTE | 2017-01-28 12:00 | CP.PCM.PN ---
Subjective - Date & Time of Evaluation Date of Evaluation: 01/28/17 Time of Evaluation: 11:30 - Subjective Subjective: Had dressings changed today, no fevers overnight, still with pain in the perirectal area, no diarrhea. Objective - Vital Signs/Intake and Output Vital Signs (last 24 hours): Temp Pulse Resp BP Pulse Ox 98.2 F 60 16 140/51 L 97 01/27/17 05:47 01/27/17 05:47 01/27/17 05:47 01/27/17 05:47 01/27/17 05:47 Intake and Output: 01/27/17 01/27/17 06:59 18:59 Intake Total 480 Balance 480 - Medications Medications: Current Medications Acetaminophen (Tylenol 650mg/20.3ml Solution Ud) 650 mg PO Q4H PRN PRN Reason: Temperature Last Admin: 01/26/17 18:04 Dose: 650 mg Al Hydrox/Mg Hydrox/Simethicone (Maalox Plus 30 Ml) 30 ml PO DAILY PRN PRN Reason: Indigestion / Heartburn Albuterol/Ipratropium (Duoneb 3 Mg/0.5 Mg (3 Ml) Ud) 3 ml IH Q2H PRN PRN Reason: Shortness of Breath Aspirin (Aspirin Chewable) 81 mg PO DAILY [facility] Last Admin: 01/27/17 10:05 Dose: 81 mg Bismuth Subsalicylate (Pepto-Bismol) 262 mg PO DAILY PRN PRN Reason: GI distress Diphenhydramine HCl (Benadryl) 25 mg PO HS PRN PRN Reason: Insomnia Last Admin: 01/26/17 00:00 Dose: 25 mg Ferrous Sulfate (Feosol) 324 mg PO TID [facility] Last Admin: 01/27/17 10:06 Dose: 324 mg Heparin Sodium (Porcine) (Heparin) 5,000 units SC Q8 [facility] PRN Reason: Protocol Last Admin: 01/27/17 05:23 Dose: 5,000 units Piperacillin Sod/Tazobactam Sod (Zosyn 3.375 In Ns 100ml) 100 mls @ 200 mls/hr IVPB Q6 [facility] PRN Reason: Protocol Stop: 02/02/17 12:01 Last Admin: 01/27/17 05:21 Dose: 200 mls/hr Losartan Potassium (Cozaar) 100 mg PO DAILY [facility] Last Admin: 01/27/17 10:06 Dose: 100 mg Multivitamins (Thera Tab) 1 tab PO 0800 [facility] Last Admin: 01/27/17 08:50 Dose: 1 tab Ondansetron HCl (Zofran Inj) 4 mg IVP ONCE PRN PRN Reason: Nausea/Vomiting Pantoprazole Sodium (Protonix Inj) 40 mg IVP DAILY [facility] Last Admin: 01/27/17 10:07 Dose: 40 mg Simethicone (Mylicon Chew Tab) 80 mg PO Q6H PRN PRN Reason: GI distress - Constitutional Appears: Non-toxic, No Acute Distress - Head Exam Head Exam: NORMAL INSPECTION - Neck Exam Neck Exam: absent: Meningismus - Respiratory Exam Respiratory Exam: Decreased Breath Sounds - Cardiovascular Exam Cardiovascular Exam: +S1, +S2 - GI/Abdominal Exam GI & Abdominal Exam: Soft. absent: Tenderness Assessment and Plan - Assessment and Plan (Free Text) Plan: Assessment Sepsis due to perirectal abscess S/P I and D POD #32, S/P repeat debridement POD #19, and partial closure and repeat debridement POD #13 - cx growing Strep milleri and E. 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
[2017-01-29] MEDS: Piperacillin/Tazobact 3.375 gm 100 ML IVPB SCH ×4 (00:31→17:58)
[2017-01-29 07:22] LABS: HEMATOCRIT 34.1 % (42.0-52.0); MEAN CELL VOLUME 93.4 fL (80.0-105.0); MEAN CORPUSCULAR HEMOGLOBIN 30.4 pg (25.0-35.0); MEAN CORPUSCULAR HGB CONC 32.6 g/dl (31.0-37.0); RED CELL DISTRIBUTION WIDTH 15.5 % (11.5-14.5); WHITE BLOOD COUNT 6.2 10^3/ul (4.5-11.0)
[2017-01-29 07:32] LABS: ALB/GLOB RATIO 0.9 (1.1-1.8); ALKALINE PHOSPHATASE 63 U/L (38-133); ALT/SGPT 43 U/L (7-56); AST/SGOT 39 U/L (15-59); BILIRUBIN,TOTAL 0.5 mg/dL (0.2-1.3); BLOOD UREA NITROGEN 30 mg/dL (7-21); CALCIUM 9.3 mg/dL (8.4-10.5); CARBON DIOXIDE 28 mmol/L (21-33); CHLORIDE 105 mmol/L (95-110); GFR AFRICAN-AMERICAN > 60; GLUCOSE,RANDOM 113 mg/dL (70-110); POTASSIUM 4.3 mmol/L (3.6-5.0); SODIUM 140 mmol/L (132-148); TOTAL PROTEIN 6.8 g/dL (5.8-8.3)
[2017-01-29] MEDS: Multivitamin Therapeutic Tab PO SCH (08:39)
[2017-01-29] MEDS: Acetaminophen 650mg/20.3ml solution UD PO PRN ×2 (10:37→14:33)
[2017-01-29] MEDS ORDERED: Enoxaparin 100 mg Syringe SC SCH (12:30)
--- NOTE | 2017-01-29 12:40 | CP.PCM.PCO ---
Physician Communication Note - Physician Communication Note Physician Communication Note: See attached summary for details Summary - Summary of Event Summary of Event: This AM, patient complaining of left lateral leg pain immediately inferior to his left hip. Physical examination was only remarkable for an area of taut musculature along the left lateral leg that was tender to palpation. No gross erythema, edema, or warmth on palpation. No notable findings of identical area on the right lower extremity. Patient is hemodynamically stable, and AM labs were within acceptable ranges for this patient. Patient denied chest pain or shortness of breath, no other acute complaints. Bilateral LE duplex was obtained, and reported as positive for bilateral DVT. As the patient's creatinine is at an acceptable level (1.2), he is being started on therapeutic Lovenox (1 mg/kg = 90mg SC) q12h while pending an assessment by Heme-onc (Dr. Wahl consulted, appreciate all recs). A stool for occult blood test was also ordered; if positive, consideration will need to be made regarding placement of an IVC filter. Case and findings discussed with attendings, Dr. Orantes and Dr. Sharpe.
--- NOTE | 2017-01-29 16:13 | CP.PCM.PN ---
Subjective - Date & Time of Evaluation Date of Evaluation: 01/29/17 Time of Evaluation: 16:06 - Subjective Subjective: Surgery: Dr. Pimentel Patient doing well today. Reports some pain to the left hip. States it feels better when he is out of bed. Ambulation does not worsen pain. Patient tolerating diet. Denies f/c/n/v. Objective - Vital Signs/Intake and Output Vital Signs (last 24 hours): Temp Pulse Resp BP Pulse Ox 97.6 F 88 14 161/73 H 100 01/29/17 10:00 01/29/17 10:00 01/29/17 10:00 01/29/17 10:00 01/29/17 10:00 - Medications Medications: Current Medications Acetaminophen (Tylenol 650mg/20.3ml Solution Ud) 650 mg PO Q4H PRN PRN Reason: Temperature Last Admin: 01/29/17 14:33 Dose: 650 mg Al Hydrox/Mg Hydrox/Simethicone (Maalox Plus 30 Ml) 30 ml PO DAILY PRN PRN Reason: Indigestion / Heartburn Albuterol/Ipratropium (Duoneb 3 Mg/0.5 Mg (3 Ml) Ud) 3 ml IH Q2H PRN PRN Reason: Shortness of Breath Aspirin (Aspirin Chewable) 81 mg PO DAILY [facility] Last Admin: 01/29/17 10:34 Dose: 81 mg Bismuth Subsalicylate (Pepto-Bismol) 262 mg PO DAILY PRN PRN Reason: GI distress Diphenhydramine HCl (Benadryl) 25 mg PO HS PRN PRN Reason: Insomnia Last Admin: 01/28/17 23:46 Dose: 25 mg Enoxaparin Sodium (Lovenox) 90 mg SC Q12H [facility] PRN Reason: Protocol Last Admin: 01/29/17 12:51 Dose: 90 mg Ferrous Sulfate (Feosol) 324 mg PO TID [facility] Last Admin: 01/29/17 14:32 Dose: 324 mg Piperacillin Sod/Tazobactam Sod (Zosyn 3.375 In Ns 100ml) 100 mls @ 200 mls/hr IVPB Q6 [facility] PRN Reason: Protocol Stop: 02/02/17 12:01 Last Admin: 01/29/17 12:52 Dose: 200 mls/hr Losartan Potassium (Cozaar) 100 mg PO DAILY [facility] Last Admin: 01/29/17 10:36 Dose: 100 mg Metoprolol Tartrate (Lopressor) 25 mg PO BID [facility] Multivitamins (Thera Tab) 1 tab PO 0800 [facility] Last Admin: 01/29/17 08:39 Dose: 1 tab Mupirocin (Bactroban Ointment) 0 gm TOP BID [facility] PRN Reason: Protocol Last Admin: 01/29/17 10:35 Dose: 1 applic Ondansetron HCl (Zofran Inj) 4 mg IVP ONCE PRN PRN Reason: Nausea/Vomiting Pantoprazole Sodium (Protonix Inj) 40 mg IVP DAILY [facility] Last Admin: 01/29/17 11:02 Dose: 40 mg Simethicone (Mylicon Chew Tab) 80 mg PO Q6H PRN PRN Reason: GI distress - Labs Labs: 01/29/17 07:00 01/29/17 07:00 - Constitutional Appears: Non-toxic, No Acute Distress - Head Exam Head Exam: ATRAUMATIC, NORMOCEPHALIC - Eye Exam Eye Exam: EOMI, Normal appearance - ENT Exam ENT Exam: Mucous Membranes Moist - Respiratory Exam Respiratory Exam: NORMAL BREATHING PATTERN. absent: Respiratory Distress - Cardiovascular Exam Cardiovascular Exam: REGULAR RHYTHM. absent: Tachycardia - GI/Abdominal Exam GI & Abdominal Exam: Soft. absent: Tenderness - Rectal Exam Additional comments: zaira-rectal wound measuring 1x2cm, irregular border. Base w/ pink granulation tissue. Wound clean. - Neurological Exam Neurological Exam: Alert, Awake - Skin Skin Exam: Dry, Normal Color, Warm Assessment and Plan - Assessment and Plan (Free Text) Assessment: 76 year male with zaira-rectal abscess s/p I&D, multiple debridement and delayed partial primary closure Plan: -Continue wound dressing change daily. keep wound clean and dry -Medical management per primary team -Continue regular diet -Pain control -d/w Dr. Loren Garner PGY1
--- NOTE | 2017-01-29 17:01 | PN ---
DATE: 01/29/2017 REASON FOR CONSULTATION AND FOLLOWUP: Continuity of care in the transitional care unit, swelling of the legs, possible bilateral DVT. BRIEF CLINICAL HISTORY: This is a 76-year-old male with past medical history significant for coronar y artery disease status post PTCA 2012, status post repeat catheterization in 2013, history of pacema ker permanent who was admitted with rectal abscess, status post multiple debridements. The patient i s in transitional care unit complaining of leg swelling. The patient underwent a duplex scan, found to be bilateral DVT is unofficial result. Denies any chest pain, shortness of breath, any palpitatio n. PHYSICAL EXAMINATION: VITAL SIGNS: Temperature afebrile, heart rate 82, blood pressure 160/83. HEENT: PERRLA. Extraocular muscles intact. NECK: Supple. No carotid bruits. No thyromegaly. CHEST: Clear to auscultation. HEART: S1, S2 regular. ABDOMEN: Soft. EXTREMITIES: Clubbing and cyanosis negative. BLOOD WORKUP: As follows: WBC 6.2, hemoglobin 11.____, hematocrit 34.1, platelet count 386. Chemis try shows sodium 140, potassium 4.2, chloride 105, carbon dioxide 28, anion gap of 11, BUN 30, creati nine 1.2. Albumin 3.2, total protein 6.8. IMPRESSION: Protein-calorie malnutrition, improved significantly, was present in medical floor, now improved; diabetes, hypertension, hyperlipidemia; coronary artery disease, status post percutaneous t ransluminal coronary angioplasty 2012, status post repeat catheterization in 2013, patent stent; hist ory of permanent pacemaker, sick sinus syndrome; history of deep venous thrombosis, history of a rect al abscess. RECOMMENDATION: Started on enoxaparin. Follow up the official result. Continue losartan, continue iron, multivitamin supplementation. Will follow with you. Will add low dose of beta kim. Will follow with you. Thank you, Dr. Orantes, for providing us the opportunity in taking care of the patient. Will follow with you. Once the surgical debridement is completed and no further surgical intervention is required, will holly nge to either Coumadin or novel anticoagulation. Still continue Lovenox. Will follow with you. Gale Mora MD cc: [id number] TT: 01/29/2017 17:00:41 Confirmation # [id number] Dictation # [id number] mn
--- NOTE | 2017-01-29 19:00 | CP.PCM.PN ---
Subjective - Date & Time of Evaluation Date of Evaluation: 01/29/17 Time of Evaluation: 12:10 - Subjective Subjective: Much improved pain in the perirectal area, dressings were changed this morning. No fevers overnight. Objective - Vital Signs/Intake and Output Vital Signs (last 24 hours): Temp Pulse Resp BP Pulse Ox 98.2 F 60 16 140/51 L 97 01/27/17 05:47 01/27/17 05:47 01/27/17 05:47 01/27/17 05:47 01/27/17 05:47 - Medications Medications: Current Medications Acetaminophen (Tylenol 650mg/20.3ml Solution Ud) 650 mg PO Q4H PRN PRN Reason: Temperature Last Admin: 01/28/17 21:53 Dose: 650 mg Al Hydrox/Mg Hydrox/Simethicone (Maalox Plus 30 Ml) 30 ml PO DAILY PRN PRN Reason: Indigestion / Heartburn Albuterol/Ipratropium (Duoneb 3 Mg/0.5 Mg (3 Ml) Ud) 3 ml IH Q2H PRN PRN Reason: Shortness of Breath Aspirin (Aspirin Chewable) 81 mg PO DAILY [facility] Last Admin: 01/28/17 09:58 Dose: 81 mg Bismuth Subsalicylate (Pepto-Bismol) 262 mg PO DAILY PRN PRN Reason: GI distress Diphenhydramine HCl (Benadryl) 25 mg PO HS PRN PRN Reason: Insomnia Last Admin: 01/28/17 23:46 Dose: 25 mg Ferrous Sulfate (Feosol) 324 mg PO TID [facility]PL[facility] Last Admin: 01/28/17 18:02 Dose: 324 mg Heparin Sodium (Porcine) (Heparin) 5,000 units SC Q8 [facility] PRN Reason: Protocol Last Admin: 01/29/17 05:06 Dose: 5,000 units Piperacillin Sod/Tazobactam Sod (Zosyn 3.375 In Ns 100ml) 100 mls @ 200 mls/hr IVPB Q6 [facility] PRN Reason: Protocol Stop: 02/02/17 12:01 Last Admin: 01/29/17 05:06 Dose: 200 mls/hr Losartan Potassium (Cozaar) 100 mg PO DAILY [facility] Last Admin: 01/28/17 09:59 Dose: 100 mg Multivitamins (Thera Tab) 1 tab PO 0800 [facility] Last Admin: 01/29/17 08:39 Dose: 1 tab Mupirocin (Bactroban Ointment) 0 gm TOP BID [facility] PRN Reason: Protocol Last Admin: 01/28/17 18:01 Dose: 1 appl Ondansetron HCl (Zofran Inj) 4 mg IVP ONCE PRN PRN Reason: Nausea/Vomiting Pantoprazole Sodium (Protonix Inj) 40 mg IVP DAILY [facility] Last Admin: 01/28/17 10:00 Dose: 40 mg Simethicone (Mylicon Chew Tab) 80 mg PO Q6H PRN PRN Reason: GI distress - Labs Labs: 01/29/17 07:00 01/29/17 07:00 - Constitutional Appears: Non-toxic, No Acute Distress - Neck Exam Neck Exam: absent: Lymphadenopathy, Meningismus - Respiratory Exam Respiratory Exam: Decreased Breath Sounds - Cardiovascular Exam Cardiovascular Exam: +S1, +S2 - GI/Abdominal Exam GI & Abdominal Exam: Soft. absent: Tenderness Assessment and Plan - Assessment and Plan (Free Text) Plan: Assessment Sepsis due to perirectal abscess S/P I and D POD #33, S/P repeat debridement POD #20, and partial closure and repeat debridement POD #14 - cx growing Strep milleri and E. 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
[2017-01-30] MEDS: Piperacillin/Tazobact 3.375 gm 100 ML IVPB SCH ×4 (00:12→17:37)
[2017-01-30] MEDS: Enoxaparin 100 mg Syringe SC SCH ×2 (05:32→17:42)
[2017-01-30] MEDS: Acetaminophen 650mg/20.3ml solution UD PO PRN ×3 (05:45→19:22)
[2017-01-30 06:55] LABS: ADD MANUAL DIFF? NO
[2017-01-30 07:05] LABS: BASO # 0.06 K/mm3 (0.0-2.0); BASO % 0.8 % (0.0-3.0); EOS # 0.4 (0.0-0.7); GRAN # 3.03 (1.4-6.5); GRAN % 42.3 % (50.0-68.0); LYMPH # 3.2 (1.2-3.4); LYMPH % 44.8 % (22.0-35.0); MEAN CELL VOLUME 93.2 fL (80.0-105.0); MEAN CORPUSCULAR HEMOGLOBIN 30.4 pg (25.0-35.0); MEAN CORPUSCULAR HGB CONC 32.6 g/dl (31.0-37.0); MEAN PLATELET VOLUME 10.3 fl (7.0-11.0); MONO # 0.5 (0.1-0.6); MONO % 7.1 % (1.0-6.0); PLATELET COUNT 404 10^3/uL (120.0-450.0); RED CELL DISTRIBUTION WIDTH 15.6 % (11.5-14.5); WHITE BLOOD COUNT 7.2 10^3/ul (4.5-11.0)
[2017-01-30 07:13] LABS: BLOOD UREA NITROGEN 32 mg/dL (7-21); CALCIUM 9.3 mg/dL (8.4-10.5); CARBON DIOXIDE 27 mmol/L (21-33); CHLORIDE 104 mmol/L (98-107); GFR AFRICAN-AMERICAN > 60; GLUCOSE,RANDOM 104 mg/dL (70-110); PHOSPHOROUS 3.6 mg/dL (2.5-4.5); POTASSIUM 4.2 mmol/L (3.6-5.0); SODIUM 138 mmol/L (132-148)
[2017-01-30] MEDS: Multivitamin Therapeutic Tab PO SCH (08:08)
--- NOTE | 2017-01-30 11:30 | CP.PCM.PN ---
Subjective - Date & Time of Evaluation Date of Evaluation: 01/30/17 Time of Evaluation: 08:15 - Subjective Subjective: Arias Lim D.O. PGY-1, General Surgery Progress Note: Dr. Loren Wong 76 year old male with zaira-rectal abscess, POD#15, s/p wound vac, now packing. Patient was seen and examined at bedside with surgical team. Patient is doing well overall, has no major complaints except some pain in the upper legs. Patient was found to have BL DVTs yesterday. Objective - Vital Signs/Intake and Output Vital Signs (last 24 hours): Temp Pulse Resp BP Pulse Ox 97.5 F L 72 18 126/60 93 L 01/29/17 16:00 01/30/17 08:07 01/29/17 16:00 01/30/17 08:07 01/29/17 16:00 - Medications Medications: Current Medications Acetaminophen (Tylenol 650mg/20.3ml Solution Ud) 650 mg PO Q4H PRN PRN Reason: Temperature Last Admin: 01/30/17 05:45 Dose: 650 mg Al Hydrox/Mg Hydrox/Simethicone (Maalox Plus 30 Ml) 30 ml PO DAILY PRN PRN Reason: Indigestion / Heartburn Albuterol/Ipratropium (Duoneb 3 Mg/0.5 Mg (3 Ml) Ud) 3 ml IH Q2H PRN PRN Reason: Shortness of Breath Aspirin (Aspirin Chewable) 81 mg PO DAILY [facility] Last Admin: 01/30/17 10:31 Dose: Not Given Bismuth Subsalicylate (Pepto-Bismol) 262 mg PO DAILY PRN PRN Reason: GI distress Diphenhydramine HCl (Benadryl) 25 mg PO HS PRN PRN Reason: Insomnia Last Admin: 01/30/17 00:08 Dose: 25 mg Enoxaparin Sodium (Lovenox) 90 mg SC 0600,1800 [facility] PRN Reason: Protocol Last Admin: 01/30/17 05:32 Dose: 90 mg Ferrous Sulfate (Feosol) 324 mg PO TID [facility] Last Admin: 01/30/17 10:33 Dose: 324 mg Piperacillin Sod/Tazobactam Sod (Zosyn 3.375 In Ns 100ml) 100 mls @ 200 mls/hr IVPB Q6 [facility] PRN Reason: Protocol Stop: 02/02/17 12:01 Last Admin: 01/30/17 05:33 Dose: 200 mls/hr Losartan Potassium (Cozaar) 100 mg PO DAILY [facility] Last Admin: 01/30/17 11:05 Dose: 100 mg Metoprolol Tartrate (Lopressor) 25 mg PO BID [facility] Last Admin: 01/30/17 10:33 Dose: Not Given Multivitamins (Thera Tab) 1 tab PO 0800 [facility] Last Admin: 01/30/17 08:08 Dose: 1 tab Mupirocin (Bactroban Ointment) 0 gm TOP BID [facility] PRN Reason: Protocol Last Admin: 01/30/17 10:32 Dose: 1 applic Ondansetron HCl (Zofran Inj) 4 mg IVP ONCE PRN PRN Reason: Nausea/Vomiting Pantoprazole Sodium (Protonix Inj) 40 mg IVP DAILY [facility] Last Admin: 01/30/17 10:33 Dose: 40 mg Simethicone (Mylicon Chew Tab) 80 mg PO Q6H PRN PRN Reason: GI distress - Labs Labs: 01/30/17 06:45 01/30/17 06:45 - Constitutional Appears: Non-toxic, No Acute Distress - Head Exam Head Exam: ATRAUMATIC, NORMOCEPHALIC - Eye Exam Eye Exam: EOMI, Normal appearance - ENT Exam ENT Exam: Mucous Membranes Moist - Respiratory Exam Respiratory Exam: NORMAL BREATHING PATTERN. absent: Respiratory Distress - Cardiovascular Exam Cardiovascular Exam: REGULAR RHYTHM. absent: Tachycardia - GI/Abdominal Exam GI & Abdominal Exam: Soft. absent: Tenderness - Rectal Exam Additional comments: zaira-rectal wound ~1x2cm, irregular borders, clean with granulation tissue, re-packed at bedside - Neurological Exam Neurological Exam: Alert, Awake - Skin Skin Exam: Dry, Normal Color, Warm Assessment and Plan - Assessment and Plan (Free Text) Assessment: 76 year male with zaira-rectal abscess s/p I&D POD#15 with delayed partial primary closure Plan: Continue dressing changes daily Pain controlled on current regimen Medical management per primary team Will discuss with attending physician. Thank you for the pleasure of participating in the care of this patient.
--- NOTE | 2017-01-30 13:20 | PN ---
DATE: 01/30/2017 REASON FOR CONSULTATION: Continuity of care in transitional care unit, complaining of swelling of th e legs, possible DVT. BRIEF CLINICAL HISTORY: This is a 76-year-old male with past medical history of CAD, status post PTC A 2012, history of pacemaker, history of cardiac catheterization, patent stents. Recent stress test was negative, admitted with rectal abscess, status post drainage done. During the hospitalization, t he patient developed DVT of lower extremity. PHYSICAL EXAMINATION: VITAL SIGNS: Temperature afebrile, heart rate 71, blood pressure 120/57. HEENT: PERRLA. Extraocular muscles intact. NECK: Supple. No carotid bruits. No thyromegaly. CHEST: Clear to auscultation. HEART: S1, S2 regular. ABDOMEN: Soft. EXTREMITIES: Clubbing and cyanosis negative. LABORATORY DATA: Blood workup as follows: WBC 7.8, hemoglobin 11.9, hematocrit 34, platelet count 4 04. Chemistry shows sodium 138, potassium 4.2, chloride 104, carbon dioxide 27, anion gap of 11, BUN 32, creatinine 1.2. IMPRESSION: Deep venous thrombosis, acute. History of bedridden, history of rectal abscess drained, history of debridement, protein-calorie malnutrition, improving; history of coronary artery disease, history of stent, hypertension, hyperlipidemia, history of percutaneous transluminal coronary angiop lasty 2012. Repeat catheterization in 2013, patent. Recent stress test 2014 was normal. History of permanent pacemaker, sick sinus syndrome. RECOMMENDATION: Continue anticoagulation with Lovenox until the rectal abscess heals. Once it is __ __, we will start p.o. anticoagulation. Continue rehab. Discussed with the patient. We will follow with you. Thank you, Dr. Orantes, for providing us the opportunity in taking care of the patient. Gale Mora MD cc: [id number] TT: 01/30/2017 13:19:42 Confirmation # [id number] Dictation # [id number] tn
--- NOTE | 2017-01-30 15:06 | CON ---
DATE: 01/30/2017 REASON FOR CONSULT: Bilateral DVT. HISTORY OF PRESENT ILLNESS: The patient is a 76-year-old male with multiple medical problems includi ng history of coronary artery disease status post stent placement, prostate CA 6 years ago, status po st robotic reconstruction, GERD, hyperlipidemia, third-degree AV block, status post permanent pacemak er placement, dilated cardiomyopathy, hypertension who presented to the Emergency Room with rectal pa in. He has had a perirectal abscess and has had debridement before. He is subsequently evaluated. He has had multiple debridements and IV antibiotic care, but symptoms have not improved. He was also noted to have bilateral lower extremity swelling on this admission. and a Doppler done reveals bilat eral lower extremity DVTs. He denies any fevers, chills, cough, chest pain, shortness of breath, headache. No dizziness, nausea , vomiting, or diarrhea, and there is no active bleeding noted. PAST MEDICAL HISTORY: As above. Known history of coronary artery disease, history of prostate cance r, GERD, third-degree AV block, history of dilated cardiomyopathy, hypertension. ALLERGIES: No known drug allergies. SOCIAL HISTORY: Noncontributory. He quit smoking 4 years ago. Denies any alcohol use or illicit dr ug use. FAMILY HISTORY: Noncontributory. MEDICATIONS: As per the MAR. REVIEW OF SYSTEMS: As per the HPI. PHYSICAL EXAMINATION: VITAL SIGNS: Reveal a temperature of 97.5, pulse of 72, respiratory rate of 18, and a blood pressure 126/60. GENERAL: The patient is an elderly male lying in bed, in no acute distress. HEAD AND NECK: Normocephalic, atraumatic. EYES: Pupils are equal, round, and reactive to light and accommodation. Extraocular muscles are int act. NECK: Supple with no adenopathy, no JVD, no thyromegaly. LUNGS: Clear to auscultation bilaterally with no rales or rhonchi. CARDIOVASCULAR: S1 and S2 are heard. ABDOMEN: Positive bowel sounds, soft, nontender, nondistended. No organomegaly is palpated. EXTREMITIES: There is bilateral lower extremity edema. LABORATORY DATA: Reveal a white count of 7.2, hemoglobin of 11.1, hematocrit of 34.0, and a platelet count of 404. Chemistries are within normal limits. The bilateral duplex was obtained and reported as positive for bilateral DVT. ASSESSMENT AND PLAN: Elderly male with multiple medical problems, now admitted with perirectal absce ss, noted to have bilateral lower extremity edema, and Dopplers are positive for bilateral deep venou s thromboses. At this point, the patient has been on Lovenox. Would agree with continuation of Love nox and switch him over to a p.o. antithrombin agent. He is being considered for inferior vena cava placement, though there is no clear indication at this point. If the patient cannot tolerate p.o. an ticoagulation or has a deep venous thrombosis recurrence on p.o. anticoagulation, he should be consi dered for inferior vena cava placement at that point. As inferior vena cava placement has its own in herent risk of clotting, would not consider that as a primary mode. We will discuss with the primary medical team. Thank you for the consult. We will follow. Mana Wahl MD cc: [id number] TT: 01/30/2017 15:05:27 Confirmation # [id number] Dictation # [id number] jn
--- NOTE | 2017-01-30 17:00 | CP.PCM.PN ---
Subjective - Date & Time of Evaluation Date of Evaluation: 01/30/17 Time of Evaluation: 07:45 - Subjective Subjective: Internal Medicine Progress Note for Dr. Orantes/Dr. Sharpe Service Patient seen and examined at bedside in TCU. Today is TCU day 5. No acute events overnight. Still pending stool occult blood testing. Today, patient still complains of bilateral leg pain along superior-lateral aspect of thighs. Denies chest pain, shortness of breath, focal weakness, nausea/emesis, dysuria, or diarrhea. Objective - Vital Signs/Intake and Output Vital Signs (last 24 hours): Temp Pulse Resp BP Pulse Ox 98.8 F 61 18 102/61 100 01/30/17 16:00 01/30/17 16:00 01/30/17 16:00 01/30/17 16:00 01/30/17 16:00 Intake and Output: 01/30/17 01/30/17 06:59 18:59 Intake Total 420 Balance 420 - Medications Medications: Current Medications Acetaminophen (Tylenol 650mg/20.3ml Solution Ud) 650 mg PO Q4H PRN PRN Reason: Temperature Last Admin: 01/30/17 14:03 Dose: 650 mg Al Hydrox/Mg Hydrox/Simethicone (Maalox Plus 30 Ml) 30 ml PO DAILY PRN PRN Reason: Indigestion / Heartburn Albuterol/Ipratropium (Duoneb 3 Mg/0.5 Mg (3 Ml) Ud) 3 ml IH Q2H PRN PRN Reason: Shortness of Breath Aspirin (Aspirin Chewable) 81 mg PO 0800 [facility] PRN Reason: Protocol Bismuth Subsalicylate (Pepto-Bismol) 262 mg PO DAILY PRN PRN Reason: GI distress Diphenhydramine HCl (Benadryl) 25 mg PO HS PRN PRN Reason: Insomnia Last Admin: 01/30/17 00:08 Dose: 25 mg Enoxaparin Sodium (Lovenox) 90 mg SC 0600,1800 [facility] PRN Reason: Protocol Last Admin: 01/30/17 05:32 Dose: 90 mg Ferrous Sulfate (Feosol) 324 mg PO TID [facility] Last Admin: 01/30/17 14:02 Dose: 324 mg Piperacillin Sod/Tazobactam Sod (Zosyn 3.375 In Ns 100ml) 100 mls @ 200 mls/hr IVPB Q6 [facility] PRN Reason: Protocol Stop: 02/02/17 12:01 Last Admin: 01/30/17 12:26 Dose: 200 mls/hr Losartan Potassium (Cozaar) 100 mg PO DAILY [facility] Last Admin: 01/30/17 11:05 Dose: 100 mg Metoprolol Tartrate (Lopressor) 25 mg PO 0800,1800 [facility] PRN Reason: Protocol Multivitamins (Thera Tab) 1 tab PO 0800 [facility] Last Admin: 01/30/17 08:08 Dose: 1 tab Mupirocin (Bactroban Ointment) 0 gm TOP BID [facility] PRN Reason: Protocol Last Admin: 01/30/17 10:32 Dose: 1 applic Ondansetron HCl (Zofran Inj) 4 mg IVP ONCE PRN PRN Reason: Nausea/Vomiting Pantoprazole Sodium (Protonix Inj) 40 mg IVP 0600 [facility] PRN Reason: Protocol Simethicone (Mylicon Chew Tab) 80 mg PO Q6H PRN PRN Reason: GI distress - Labs Labs: 01/30/17 06:45 01/30/17 06:45 - Constitutional Appears: Non-toxic, No Acute Distress - Head Exam Head Exam: ATRAUMATIC, NORMAL INSPECTION, NORMOCEPHALIC - Eye Exam Eye Exam: EOMI, Normal appearance. absent: Conjunctival injection, Scleral icterus Pupil Exam: absent: Irregular, Unequal - ENT Exam ENT Exam: Mucous Membranes Moist - Neck Exam Neck Exam: Full ROM. absent: Tenderness Additional comments: no JVD - Respiratory Exam Respiratory Exam: Clear to Ausculation Bilateral, NORMAL BREATHING PATTERN. absent: Accessory Muscle Use, Chest Wall Tenderness, Decreased Breath Sounds, Rales, Rhonchi, Wheezes - Cardiovascular Exam Cardiovascular Exam: REGULAR RHYTHM, RRR, +S1, +S2. absent: Bradycardia, Tachycardia, Irregular Rhythm, +S4 - GI/Abdominal Exam GI & Abdominal Exam: Soft, Normal Bowel Sounds. absent: Distended, Firm, Rigid , Tenderness - Extremities Exam Additional comments: Tenderness along lateral upper thighs, L>R No edema/erythema/temperature abnormalities on palpation bilaterally +1 dorsalis pedis and +2 radial pulses bilaterally - Back Exam Back Exam: absent: rash noted - Neurological Exam Neurological Exam: Alert, Awake, Oriented x3 - Psychiatric Exam Psychiatric exam: Normal Affect, Normal Mood - Skin Skin Exam: Dry, Intact, Normal Color, Warm Assessment and Plan - Assessment and Plan (Free Text) Assessment: This is a 76 yo M with PMH of CAD s/p stent placement, prostate cancer s/p robotic reconstruction, GERD, hyperlipidemia, 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 Patient is in the TCU for rehab, and was incidentally found to have bilateral DVTs. Plan: 1) Perirectal abscess -Patient is s/p incision & drainage followed by debridement and further debridement (POD#15), no further procedures planned as per surgery team -Continue zosyn as per ID -Blood and urine cultures have remain negative -Continue with wound care -Afebrile, no leukocytosis 2) Bilateral DVT -patient complaining of bilateral thigh pain x2 days -Duplex notable for bilateral DVT -Heme-onc (Dr. 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 Orantes.
--- NOTE | 2017-01-30 20:42 | CP.PCM.PN ---
Subjective - Date & Time of Evaluation Date of Evaluation: 01/30/17 Time of Evaluation: 10:35 - Subjective Subjective: Comfortable, improved pain profile over the perirectal area, not in distress. Afebrile overnight. Objective - Vital Signs/Intake and Output Vital Signs (last 24 hours): Temp Pulse Resp BP Pulse Ox 97.5 F L 72 18 126/60 93 L 01/29/17 16:00 01/30/17 08:07 01/29/17 16:00 01/30/17 08:07 01/29/17 16:00 - Medications Medications: Current Medications Acetaminophen (Tylenol 650mg/20.3ml Solution Ud) 650 mg PO Q4H PRN PRN Reason: Temperature Last Admin: 01/30/17 05:45 Dose: 650 mg Al Hydrox/Mg Hydrox/Simethicone (Maalox Plus 30 Ml) 30 ml PO DAILY PRN PRN Reason: Indigestion / Heartburn Albuterol/Ipratropium (Duoneb 3 Mg/0.5 Mg (3 Ml) Ud) 3 ml IH Q2H PRN PRN Reason: Shortness of Breath Aspirin (Aspirin Chewable) 81 mg PO DAILY [facility] Last Admin: 01/30/17 08:06 Dose: 81 mg Bismuth Subsalicylate (Pepto-Bismol) 262 mg PO DAILY PRN PRN Reason: GI distress Diphenhydramine HCl (Benadryl) 25 mg PO HS PRN PRN Reason: Insomnia Last Admin: 01/30/17 00:08 Dose: 25 mg Enoxaparin Sodium (Lovenox) 90 mg SC 0600,1800 [facility] PRN Reason: Protocol Last Admin: 01/30/17 05:32 Dose: 90 mg Ferrous Sulfate (Feosol) 324 mg PO TID [facility] Last Admin: 01/29/17 17:57 Dose: 324 mg Piperacillin Sod/Tazobactam Sod (Zosyn 3.375 In Ns 100ml) 100 mls @ 200 mls/hr IVPB Q6 [facility] PRN Reason: Protocol Stop: 02/02/17 12:01 Last Admin: 01/30/17 05:33 Dose: 200 mls/hr Losartan Potassium (Cozaar) 100 mg PO DAILY [facility] Last Admin: 01/29/17 10:36 Dose: 100 mg Metoprolol Tartrate (Lopressor) 25 mg PO BID [facility] Last Admin: 01/30/17 08:07 Dose: 25 mg Multivitamins (Thera Tab) 1 tab PO 0800 [facility] Last Admin: 01/30/17 08:08 Dose: 1 tab Mupirocin (Bactroban Ointment) 0 gm TOP BID [facility] PRN Reason: Protocol Last Admin: 01/29/17 17:57 Dose: 1 applic Ondansetron HCl (Zofran Inj) 4 mg IVP ONCE PRN PRN Reason: Nausea/Vomiting Pantoprazole Sodium (Protonix Inj) 40 mg IVP DAILY [facility] Last Admin: 01/29/17 11:02 Dose: 40 mg Simethicone (Mylicon Chew Tab) 80 mg PO Q6H PRN PRN Reason: GI distress - Labs Labs: 01/30/17 06:45 01/30/17 06:45 - Constitutional Appears: Non-toxic, No Acute Distress - Head Exam Head Exam: NORMAL INSPECTION - Neck Exam Neck Exam: absent: Meningismus - Respiratory Exam Respiratory Exam: Decreased Breath Sounds - Cardiovascular Exam Cardiovascular Exam: +S1, +S2 - GI/Abdominal Exam GI & Abdominal Exam: Soft. absent: Tenderness Assessment and Plan - Assessment and Plan (Free Text) Plan: Assessment Sepsis due to perirectal abscess S/P I and D POD #34, S/P repeat debridement POD #21, and partial closure and repeat debridement POD #15 - cx growing Strep milleri and E. coli; S/P wound vacuum placement and now removed lower lobe HCAP, resolved CAD S/P PCI prostate ca s/p robotic reconstruction 6 years ago GERD dyslipidemia history of 3rd degree AV block s/p permanent pacemaker placement history of dilated cardiomyopathy HTN history of back surgery S/P carotid endarterectomy Plan will discontinue Zosyn and observe - wound looks clean with good granulation tissue - continue to monitor clinically and follow up further plans of surgery ( regarding closure of the perirectal wound)
[2017-01-31] MEDS: Acetaminophen 650mg/20.3ml solution UD PO PRN ×3 (03:34→19:55)
[2017-01-31] MEDS: Enoxaparin 100 mg Syringe SC SCH (05:32)
[2017-01-31] MEDS: Multivitamin Therapeutic Tab PO SCH (07:59)
--- NOTE | 2017-01-31 08:34 | CP.PCM.PCO ---
Physician Communication Note - Physician Communication Note Physician Communication Note: Dressing changed, cont QD, wound improving.
--- NOTE | 2017-01-31 10:05 | US ---
HISTORY: Leg pain and swelling. Evaluate for DVT PHYSICIAN(S): Spencer Carmona MD. TECHNIQUE: Duplex sonography and color-flow Doppler with graded compression were used to evaluate the deep venous systems of both lower extremities. FINDINGS: Occlusive hypoechoic thrombus is seen in the posterior tibial and peroneal veins bilaterally. The popliteal veins, femoral veins, and common femoral veins are patent and compressible. IMPRESSION: Acute, hypoechoic, occlusive thrombus in the tibial veins bilaterally.
[2017-01-31 10:33] LABS: ADD MANUAL DIFF? NO
[2017-01-31 10:39] LABS: BASO # 0.03 K/mm3 (0.0-2.0); BASO % 0.5 % (0.0-3.0); EOS # 0.3 (0.0-0.7); EOS % 3.9 % (1.5-5.0); GRAN # 3.14 (1.4-6.5); GRAN % 49.3 % (50.0-68.0); HEMATOCRIT 34.4 % (42.0-52.0); LYMPH # 2.5 (1.2-3.4); LYMPH % 39.7 % (22.0-35.0); MEAN CORPUSCULAR HEMOGLOBIN 30.6 pg (25.0-35.0); MEAN CORPUSCULAR HGB CONC 32.6 g/dl (31.0-37.0); MEAN PLATELET VOLUME 9.7 fl (7.0-11.0); MONO # 0.4 (0.1-0.6); MONO % 6.6 % (1.0-6.0); PLATELET COUNT 358 10^3/uL (120.0-450.0); RED CELL DISTRIBUTION WIDTH 15.7 % (11.5-14.5); WHITE BLOOD COUNT 6.4 10^3/ul (4.5-11.0)
[2017-01-31 10:48] LABS: BLOOD UREA NITROGEN 34 mg/dL (7-21); CALCIUM 9.2 mg/dL (8.4-10.5); CARBON DIOXIDE 26 mmol/L (21-33); CHLORIDE 105 mmol/L (98-107); GFR AFRICAN-AMERICAN > 60; GLUCOSE,RANDOM 172 mg/dL (70-110); POTASSIUM 4.2 mmol/L (3.6-5.0); SODIUM 138 mmol/L (132-148)
--- NOTE | 2017-01-31 11:08 | CP.PCM.PN ---
Subjective - Date & Time of Evaluation Date of Evaluation: 01/31/17 Time of Evaluation: 10:55 - Subjective Subjective: Comfortable, not in distress, less pain in the left leg. Noted patient to be diagnosed with thrombus in the tibial veins. No fevers overnight. Objective - Vital Signs/Intake and Output Vital Signs (last 24 hours): Temp Pulse Resp BP Pulse Ox 98.8 F 63 18 141/65 100 01/30/17 16:00 01/31/17 07:58 01/30/17 16:00 01/31/17 07:58 01/30/17 16:00 - Medications Medications: Current Medications Acetaminophen (Tylenol 650mg/20.3ml Solution Ud) 650 mg PO Q4H PRN PRN Reason: Temperature Last Admin: 01/31/17 03:34 Dose: 650 mg Al Hydrox/Mg Hydrox/Simethicone (Maalox Plus 30 Ml) 30 ml PO DAILY PRN PRN Reason: Indigestion / Heartburn Albuterol/Ipratropium (Duoneb 3 Mg/0.5 Mg (3 Ml) Ud) 3 ml IH Q2H PRN PRN Reason: Shortness of Breath Aspirin (Aspirin Chewable) 81 mg PO 0800 [facility] PRN Reason: Protocol Last Admin: 01/31/17 07:58 Dose: 81 mg Bismuth Subsalicylate (Pepto-Bismol) 262 mg PO DAILY PRN PRN Reason: GI distress Diphenhydramine HCl (Benadryl) 25 mg PO HS PRN PRN Reason: Insomnia Last Admin: 01/31/17 00:07 Dose: 25 mg Enoxaparin Sodium (Lovenox) 90 mg SC 0600,1800 [facility] PRN Reason: Protocol Last Admin: 01/31/17 05:32 Dose: 90 mg Ferrous Sulfate (Feosol) 324 mg PO TID [facility] Last Admin: 01/30/17 17:38 Dose: 324 mg Losartan Potassium (Cozaar) 100 mg PO DAILY [facility] Last Admin: 01/30/17 11:05 Dose: 100 mg Metoprolol Tartrate (Lopressor) 25 mg PO 0800,1800 [facility] PRN Reason: Protocol Last Admin: 01/31/17 07:58 Dose: 25 mg Multivitamins (Thera Tab) 1 tab PO 0800 [facility] Last Admin: 01/31/17 07:59 Dose: 1 tab Mupirocin (Bactroban Ointment) 0 gm TOP BID [facility] PRN Reason: Protocol Last Admin: 01/30/17 17:38 Dose: 1 applic Ondansetron HCl (Zofran Inj) 4 mg IVP ONCE PRN PRN Reason: Nausea/Vomiting Pantoprazole Sodium (Protonix Inj) 40 mg IVP 0600 [facility] PRN Reason: Protocol Last Admin: 01/31/17 05:32 Dose: 40 mg Simethicone (Mylicon Chew Tab) 80 mg PO Q6H PRN PRN Reason: GI distress - Labs Labs: 01/30/17 06:45 01/30/17 06:45 - Constitutional Appears: Non-toxic, No Acute Distress - Head Exam Head Exam: NORMAL INSPECTION - ENT Exam ENT Exam: Mucous Membranes Moist - Neck Exam Neck Exam: absent: Lymphadenopathy, Meningismus - Respiratory Exam Respiratory Exam: Decreased Breath Sounds - GI/Abdominal Exam GI & Abdominal Exam: Soft. absent: Tenderness Assessment and Plan - Assessment and Plan (Free Text) Plan: Assessment S/P Sepsis due to perirectal abscess S/P I and D POD #35, S/P repeat debridement POD #22, and partial closure and repeat debridement POD #16 - cx grew Strep milleri and E. coli; S/P wound vacuum placement and now removed - S/ P treatment with antibiotics New onset thrombosis of the tibial veins lower lobe HCAP, resolved CAD S/P PCI prostate ca s/p robotic reconstruction 6 years ago GERD dyslipidemia history of 3rd degree AV block s/p permanent pacemaker placement history of dilated cardiomyopathy HTN history of back surgery S/P carotid endarterectomy Plan monitor off antibiotics since he is at risk for nosocomial infections; follow up plan of Surgery for eventual closure of perirectal wound patient on anticoagulation for the thrombus in tibial veins
--- NOTE | 2017-01-31 16:04 | PN ---
DATE: 01/31/2017 REASON FOR CONSULTATION AND FOLLOWUP: Continuity of care in the transitional care unit, history of D VT; history of rectal abscess, drained. BRIEF CLINICAL HISTORY: A 76-year-old male with a past medical history significant for CAD status po st PTCA 2012, pacemaker, admitted with rectal abscess, status post drained and debridement. Postop c ourse complicated by DVT of lower extremity. PHYSICAL EXAMINATION: VITAL SIGNS: Temperature afebrile, heart rate 60, blood pressure 114/46. HEENT: PERRLA. Extraocular muscles intact. NECK: Supple. No carotid bruits. No thyromegaly. CHEST: Clear to auscultation. HEART: S1, S2 regular. ABDOMEN: Soft. EXTREMITIES: Clubbing and cyanosis negative. BLOOD WORKUP: As follows: WBC 6.4, hemoglobin 11.2, hematocrit 34.4, platelet count 358. Chemistry shows sodium 138, potassium 4.2, chloride 104, carbon dioxide 26, anion gap of 11, BUN 34, creatinin e 1.3. IMPRESSION: Bilateral deep venous thrombosis of tibial vessels; history of rectal abscess, status po st drainage, status post debridement; mostly bedridden; coronary artery disease, status post percutan eous transluminal coronary angioplasty, repeat catheterization, patent stent; history of sick sinus s yndrome, status post permanent pacemaker. RECOMMENDATIONS: Ambulate out of bed to chair. Encourage increased nutritional support to help prev ent protein-calorie malnutrition as it is improved now and improving; history of cardiac catheterizat ion and angioplasty 2012, repeat catheterization in 2013, patent stent; recent stress test in 2014 wa s normal; history of permanent pacemaker. RECOMMENDATION: The patient started on Eliquis 10 mg b.i.d. followed by decreased dose of 5 mg b.i.d . after 1 week. Will follow with you. Thank you, Dr. Orantes, for providing the opportunity in taking care of the patient. Gale Mora MD cc: [id number] TT: 01/31/2017 16:03:12 Confirmation # [id number] Dictation # [id number] mn
[2017-02-01] MEDS: Multivitamin Therapeutic Tab PO SCH (08:41)
[2017-02-01] MEDS: Acetaminophen 650mg/20.3ml solution UD PO PRN ×2 (08:43→20:55)
[2017-02-01 10:12] LABS: HEMATOCRIT 34.5 % (42.0-52.0); MEAN CELL VOLUME 93.8 fL (80.0-105.0); RED CELL DISTRIBUTION WIDTH 15.4 % (11.5-14.5); WHITE BLOOD COUNT 6.1 10^3/ul (4.5-11.0)
--- NOTE | 2017-02-01 10:53 | CP.PCM.PCO ---
Physician Communication Note - Physician Communication Note Physician Communication Note: Perirectal wound dressings changed, no stitches removed, cont monitoring.
--- NOTE | 2017-02-01 13:56 | CP.PCM.PN ---
Subjective - Date & Time of Evaluation Date of Evaluation: 02/01/17 Time of Evaluation: 07:25 - Subjective Subjective: Internal Medicine Progress Note for Dr. Orantes/Dr. Sharpe Service Patient seen and examined at bedside in TCU. Today is TCU day 7. No acute events overnight. Day 2 on Eliquis 10mg PO BID. Stool occult negative, H&H stable. Bilateral lateral thigh pain continues, L>R, slightly improved over last 3 days. No other complaints. Continuing to participate with PT, denies chest pain, shortness of breath, nausea/emesis, cough. Objective - Vital Signs/Intake and Output Vital Signs (last 24 hours): Temp Pulse Resp BP Pulse Ox 98 F 75 14 109/58 L 100 02/01/17 10:00 02/01/17 10:00 02/01/17 10:00 02/01/17 10:00 02/01/17 10:00 Intake and Output: 02/01/17 02/01/17 06:59 18:59 Intake Total 680 Output Total 500 Balance 180 - Medications Medications: Current Medications Acetaminophen (Tylenol 650mg/20.3ml Solution Ud) 650 mg PO Q4H PRN PRN Reason: Temperature Last Admin: 02/01/17 08:43 Dose: 650 mg Al Hydrox/Mg Hydrox/Simethicone (Maalox Plus 30 Ml) 30 ml PO DAILY PRN PRN Reason: Indigestion / Heartburn Albuterol/Ipratropium (Duoneb 3 Mg/0.5 Mg (3 Ml) Ud) 3 ml IH Q2H PRN PRN Reason: Shortness of Breath Apixaban (Eliquis) 10 mg PO BID [facility] PRN Reason: Protocol Last Admin: 02/01/17 10:17 Dose: 10 mg Aspirin (Aspirin Chewable) 81 mg PO 0800 [facility] PRN Reason: Protocol Last Admin: 02/01/17 08:40 Dose: 81 mg Bismuth Subsalicylate (Pepto-Bismol) 262 mg PO DAILY PRN PRN Reason: GI distress Diphenhydramine HCl (Benadryl) 25 mg PO HS PRN PRN Reason: Insomnia Last Admin: 02/01/17 00:08 Dose: 25 mg Ferrous Sulfate (Feosol) 324 mg PO TID [facility] Last Admin: 02/01/17 10:17 Dose: 324 mg Losartan Potassium (Cozaar) 100 mg PO DAILY [facility] Last Admin: 02/01/17 10:16 Dose: 100 mg Metoprolol Tartrate (Lopressor) 25 mg PO 0800,1800 [facility] PRN Reason: Protocol Last Admin: 02/01/17 08:41 Dose: 25 mg Multivitamins (Thera Tab) 1 tab PO 0800 [facility] Last Admin: 02/01/17 08:41 Dose: 1 tab Mupirocin (Bactroban Ointment) 0 gm TOP BID [facility] PRN Reason: Protocol Last Admin: 02/01/17 10:16 Dose: 1 applic Ondansetron HCl (Zofran Inj) 4 mg IVP ONCE PRN PRN Reason: Nausea/Vomiting Pantoprazole Sodium (Protonix Inj) 40 mg IVP 0600 [facility] PRN Reason: Protocol Last Admin: 02/01/17 06:12 Dose: 40 mg Simethicone (Mylicon Chew Tab) 80 mg PO Q6H PRN PRN Reason: GI distress - Labs Labs: 02/01/17 09:30 01/31/17 10:31 - Additional Findings Additional findings: - Constitutional Appears: Non-toxic, Mild-distress 2/2 bilateral leg pain (L>R) but otherwise resting comfortably - Head Exam Head Exam: ATRAUMATIC, NORMAL INSPECTION, NORMOCEPHALIC - Eye Exam Eye Exam: EOMI, Normal appearance. absent: Conjunctival injection, Scleral icterus Pupil Exam: absent: Irregular, Unequal - ENT Exam ENT Exam: Mucous Membranes Moist - Neck Exam Neck Exam: Full ROM. absent: Tenderness, JVD - Respiratory Exam Respiratory Exam: Clear to Ausculation Bilateral, NORMAL BREATHING PATTERN. absent: Accessory Muscle Use, Chest Wall Tenderness, Decreased Breath Sounds, Rales, Rhonchi, Wheezes - Cardiovascular Exam Cardiovascular Exam: REGULAR RHYTHM, RRR, +S1, +S2. absent: Bradycardia, Tachycardia, Irregular Rhythm, +S4 - GI/Abdominal Exam GI & Abdominal Exam: Soft, Normal Bowel Sounds. absent: Distended, Firm, Rigid , Tenderness - Extremities Exam Extremities Exam: Tenderness along lateral upper thighs (L>R), No edema/erythema /temperature abnormalities on palpation bilaterally, +1 dorsalis pedis and +2 radial pulses bilaterally - Back Exam Back Exam: absent: rash noted - Neurological Exam Neurological Exam: Alert, Awake, Oriented x3 - Psychiatric Exam Psychiatric exam: Normal Affect, Normal Mood - Skin Skin Exam: Dry, Intact, Normal Color, Warm Assessment and Plan - Assessment and Plan (Free Text) Assessment: This is a 76 yo M with PMH of CAD s/p stent placement, prostate cancer s/p robotic reconstruction, GERD, hyperlipidemia, 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 Patient is in the TCU for rehab, and was incidentally found to have bilateral DVTs. Plan: 1) Perirectal abscess -Patient is s/p incision & drainage followed by debridement and further debridement (POD#17), no further procedures planned as per surgery team -Dosyn d/c by ID, continue to monitor -Blood and urine cultures have remained negative -Continue with wound care -Afebrile, no leukocytosis 2) Bilateral DVT -On Eliquis 10mg PO BID (day 2/7), will then decrease to 5mg PO BID for at least 6 months -Duplex notable for bilateral DVT -Heme-onc (Dr. 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 Orantes.
--- NOTE | 2017-02-01 16:04 | PN ---
DATE: 02/01/2017 REASON FOR CONSULTATION AND FOLLOWUP: Continuity of care in transitional care unit, history of DVT, history of rectal abscess drained. BRIEF CLINICAL HISTORY: This is a 76-year-old male with a past medical history significant for CAD s tatus post PTCA in 2012, pacemaker, status post PTCA in 2012 and status post pacemaker. Admitted wit h rectal abscess, status post drain. Hospital course complicated by DVT. The patient is now ____. Denies any chest pain, shortness of breath, any palpitation. PHYSICAL EXAMINATION: As follows: VITAL SIGNS: Temperature afebrile, heart rate 65, blood pressure 109/58. HEENT: PERRLA, intact. NECK: Supple. No carotid bruits. No thyromegaly. CHEST: Clear to auscultation. HEART: S1, S2 regular. ABDOMEN: Soft. EXTREMITIES: Clubbing and cyanosis negative. BLOOD WORKUP: As follows: WBC 6.1, hemoglobin 11.5, hematocrit 34.5, platelet count 365. Chemistry shows sodium 130, potassium 4.2, chloride 105, carbon dioxide 26, anion gap of 11, BUN 34, creatinin e 1.3. IMPRESSION: Rectal abscess, history of coronary artery disease status post percutaneous transluminal coronary angioplasty in 2012, history of permanent pacemaker, deep venous thrombosis, bilateral deep venous thrombosis. RECOMMENDATION: The patient is on Eliquis. ____ support, ambulate. Continue aspirin. Continue bet a-kim. Continue Eliquis for 7 days and then ____ 5 mg daily. We will follow with you. Thank you, Dr. Orantes for providing the opportunity in taking care of the patient. Follow up the l ab in the morning. Gale Mora MD cc: [id number] TT: 02/01/2017 16:04:10 Confirmation # [id number] Dictation # [id number]
--- NOTE | 2017-02-01 22:19 | PN ---
DATE: 02/01/2017 SUBJECTIVE: The patient is in bed, was seen earlier this morning in room 322. No fevers and no chil ls. No nausea or vomiting. PHYSICAL EXAMINATION: VITAL SIGNS: Temperature is 98, blood pressure is 111/50, respiratory rate of 18. HEENT: Unremarkable. NECK: Supple. LUNGS: Have decreased breath sounds. HEART: Normal S1, S2. ABDOMEN: Soft, nontender. LABORATORY DATA: Reveals a white count of 6.1, hemoglobin of 11. Chemistries are noted. MEDICATIONS: Review of the orders reveals the patient to be off of antibiotics. ASSESSMENT AND PLAN: A 76-year-old male status post sepsis due to perirectal abscess, status post in cision and drainage post-procedure day #36. Repeat debridement post-procedure day #23 and a partial closure and a repeat debridement post-procedure day #17. Cultures grew Streptococcus milleri Escheri ernesto coli. The patient had a wound vacuum assisted closure placement, which is now removed and was t reated with antibiotics, currently off of antibiotics, afebrile, and this patient with a history of d ilated cardiomyopathy, hypertension and carotid endarterectomy and prostate cancer status post roboti c reconstruction and coronary artery disease status post percutaneous coronary intervention and will follow with you. The patient is at risk for developing nosocomial infections. Guillaume Spence MD cc: 350 TT: 02/01/2017 22:18:39 Confirmation # [id number] Dictation # [id number] ln
[2017-02-02 06:45] LABS: ADD MANUAL DIFF? NO
[2017-02-02 07:17] LABS: BASO # 0.04 K/mm3 (0.0-2.0); BASO % 0.6 % (0.0-3.0); EOS # 0.3 (0.0-0.7); EOS % 4.3 % (1.5-5.0); GRAN # 2.68 (1.4-6.5); GRAN % 39.6 % (50.0-68.0); HEMATOCRIT 34.8 % (42.0-52.0); LYMPH # 3.2 (1.2-3.4); LYMPH % 47.7 % (22.0-35.0); MEAN CELL VOLUME 92.6 fL (80.0-105.0); MEAN CORPUSCULAR HEMOGLOBIN 30.6 pg (25.0-35.0); MEAN PLATELET VOLUME 10.3 fl (7.0-11.0); MONO # 0.5 (0.1-0.6); MONO % 7.8 % (1.0-6.0); PLATELET COUNT 366 10^3/uL (120.0-450.0); RED CELL DISTRIBUTION WIDTH 15.3 % (11.5-14.5); WHITE BLOOD COUNT 6.8 10^3/ul (4.5-11.0)
[2017-02-02] MEDS: Multivitamin Therapeutic Tab PO SCH (08:25)
--- NOTE | 2017-02-02 08:48 | CP.PCM.PCO ---
Physician Communication Note - Physician Communication Note Physician Communication Note: dressing change, wound healthy.
[2017-02-02] MEDS: Acetaminophen 650mg/20.3ml solution UD PO PRN (10:00)
--- NOTE | 2017-02-02 11:04 | PN ---
DATE: 02/02/2017 SUBJECTIVE: The patient is in bed in no acute distress, nontoxic. PHYSICAL EXAMINATION: VITAL SIGNS: Temperature is 98, blood pressure is 120/70, respiratory rate 16. HEENT: Unremarkable. NECK: Supple. LUNGS: Have decreased breath sounds. HEART: Normal S1. LABORATORY EXAMINATION: Reveals a white count of 6.8. Microbiology is noted. ASSESSMENT AND PLAN: This is a 76-year-old status post sepsis due to perirectal abscess, status post surgery and currently off of antibiotics for possible discharge today. Guillaume Spence MD cc: 350 TT: 02/02/2017 11:03:31 Confirmation # [id number] Dictation # [id number] jn
[2017-02-02 12:33] VITALS: BP 114/43; PULSE 64; RESP 14; TEMP 98; O2SAT 97
--- NOTE | 2017-02-02 16:04 | CP.PCM.DIS ---
Provider - Provider Date of Admission: 01/25/17 18:10 Attending physician: Bowen Orantes MD Primary care physician: Bowen Orantes MD Consults: ID: [id number] GI: Svetlana Cardio: Morgan Pulm: Nick IR: Spencer Carmona Heme-onc: Vish Time Spent in preparation of Discharge (in minutes): 45 Diagnosis - Discharge Diagnosis (1) DVT (deep venous thrombosis) Status: Acute Priority: High (2) Perirectal abscess Status: Acute Priority: Medium (3) CHF (congestive heart failure) Status: Chronic Priority: Medium (4) Heart block AV third degree Status: Chronic Priority: Medium Hospital Course - Lab Results Lab Results: Most Recent Lab Values WBC 6.8 10^3/ul (4.5-11.0) 02/02/17 06:30 RBC 3.76 10^6/uL (3.5-6.1) 02/02/17 06:30 Hgb 11.5 gm/dL (14.0-18.0) L 02/02/17 06:30 Hct 34.8 % (42.0-52.0) L 02/02/17 06:30 MCV 92.6 fL (80.0-105.0) 02/02/17 06:30 MCH 30.6 pg (25.0-35.0) 02/02/17 06:30 MCHC 33.0 g/dl (31.0-37.0) 02/02/17 06:30 RDW 15.3 % (11.5-14.5) H 02/02/17 06:30 Plt Count 366 10^3/uL (120.0-450.0) 02/02/17 06:30 MPV 10.3 fl (7.0-11.0) 02/02/17 06:30 Gran % 39.6 % (50.0-68.0) L 02/02/17 06:30 Lymph % (Auto) 47.7 % (22.0-35.0) H 02/02/17 06:30 [place] % (Auto) 7.8 % (1.0-6.0) H 02/02/17 06:30 Eos % (Auto) 4.3 % (1.5-5.0) 02/02/17 06:30 Baso % (Auto) 0.6 % (0.0-3.0) 02/02/17 06:30 Gran # 2.68 (1.4-6.5) 02/02/17 06:30 Lymph # 3.2 (1.2-3.4) 02/02/17 06:30 [place] # 0.5 (0.1-0.6) 02/02/17 06:30 Eos # 0.3 (0.0-0.7) 02/02/17 06:30 Baso # 0.04 K/mm3 (0.0-2.0) 02/02/17 06:30 Sodium 138 mmol/L (132-148) 01/31/17 10:31 Potassium 4.2 mmol/L (3.6-5.0) 01/31/17 10:31 Chloride 105 mmol/L (98-107) 01/31/17 10:31 Carbon Dioxide 26 mmol/L (21-33) 01/31/17 10:31 Anion Gap 11 (10-20) 01/31/17 10:31 BUN 34 mg/dL (7-21) H 01/31/17 10:31 Creatinine 1.3 mg/dL (0.5-1.4) 01/31/17 10:31 Est GFR ( Amer) > 60 01/31/17 10:31 Est GFR (Non-Af Amer) 54 01/31/17 10:31 POC Glucose (mg/dL) 142 mg/dL (65-110) H 01/31/17 11:18 Random Glucose 172 mg/dL (70-110) H 01/31/17 10:31 Calcium 9.2 mg/dL (8.4-10.5) 01/31/17 10:31 Phosphorus 3.6 mg/dL (2.5-4.5) 01/30/17 06:45 Magnesium 2.0 mg/dL (1.7-2.2) 01/30/17 06:45 Total Bilirubin 0.5 mg/dL (0.2-1.3) 01/29/17 07:00 AST 39 U/L (15-59) 01/29/17 07:00 ALT 43 U/L (7-56) 01/29/17 07:00 Alkaline Phosphatase 63 U/L (38-133) 01/29/17 07:00 Total Protein 6.8 g/dL (5.8-8.3) 01/29/17 07:00 Albumin 3.2 g/dL (3.0-4.8) 01/29/17 07:00 Globulin 3.6 gm/dL 01/29/17 07:00 Albumin/Globulin Ratio 0.9 (1.1-1.8) L 01/29/17 07:00 Stool Occult Blood Negative (NEGATIVE) 01/30/17 12:30 - Hospital Course Hospital Course: This is a 76 yo M with PMH of CAD s/p stent placement, prostate cancer s/p robotic reconstruction, GERD, hyperlipidemia, 3rd degree AV block s/ p permanent pacemaker placement, dilated cardiomyopathy (latest MUGA scan with LVEF of 60%), and hypertension who initially presented to [facility] with rectal pain determined to be due to rectal abscess. He was subsequently evaluated by surgery and determined to have a zaira-rectal abscess that required incision and drainage followed by debridement and repeated debridement. He was later transferred to the TCU for continuing IV antibiotics (course finished as per ID) , wound care, and rehab. While in the TCU, Surgery continued to follow and provide daily wound care. As per Surgery, patient now only requires at least daily dressing changes, with instructions provided to keep the site dry and clean. Patient was later found to have bilateral DVTs after complaining of bilateral thigh pain (left greater than right). He was started on therapeutic Lovenox (1 mg/kg) and was seen by Heme-onc. As per heme-onc, patient ok to be on therapeutic AC, and should be switched to PO anticoagulation. He was converted from lovenox (2 days) to BID PO Eliquis 10mg. He was given a script for 3 more days of Eliquis PO BID 10mg (for a total of 5 days on 10mg eliquis), as well as a script for 5mg PO BID Eliquis, which he was instructed to begin after finishing his course of 10mg BID. Patient was instructed to follow up with Dr. Orantes (PMD) within [address] Pimentel (Surgery) within 2 weeks of discharge. Patient and daughter at bedside expressed understanding and agreement. Prior to discharge, PICC line removed (see attached procedure section), pressure held in place for several minutes, then site was bandaged. All questions answered to patient and family's satisfaction, patient was then discharge to home. Patient seen, reviewed, and discussed with attending, Dr. Sharpe. Discharge Exam - Additional Findings Additional findings: - Constitutional Appears: Non-toxic, Mild-distress 2/2 bilateral leg pain (L>R) but otherwise resting comfortably - Head Exam Head Exam: ATRAUMATIC, NORMAL INSPECTION, NORMOCEPHALIC - Eye Exam Eye Exam: EOMI, Normal appearance. absent: Conjunctival injection, Scleral icterus Pupil Exam: absent: Irregular, Unequal - ENT Exam ENT Exam: Mucous Membranes Moist - Neck Exam Neck Exam: Full ROM. absent: Tenderness, JVD - Respiratory Exam Respiratory Exam: Clear to Ausculation Bilateral, NORMAL BREATHING PATTERN. absent: Accessory Muscle Use, Chest Wall Tenderness, Decreased Breath Sounds, Rales, Rhonchi, Wheezes - Cardiovascular Exam Cardiovascular Exam: REGULAR RHYTHM, RRR, +S1, +S2. absent: Bradycardia, Tachycardia, Irregular Rhythm, +S4 - GI/Abdominal Exam GI & Abdominal Exam: Soft, Normal Bowel Sounds. absent: Distended, Firm, Rigid , Tenderness - Extremities Exam Extremities Exam: Tenderness along lateral upper thighs (L>R), No edema/erythema /temperature abnormalities on palpation bilaterally, +1 dorsalis pedis and +2 radial pulses bilaterally, PICC line in RUE secured with tegaderm. - Back Exam Back Exam: absent: rash noted - Neurological Exam Neurological Exam: Alert, Awake, Oriented x3 - Psychiatric Exam Psychiatric exam: Normal Affect, Normal Mood - Skin Skin Exam: Dry, Intact, Normal Color, Warm Discharge Plan - Discharge Medications Prescriptions: Apixaban [Eliquis] 5 mg PO BID #60 tab Apixaban [Eliquis] 10 mg PO BID #6 tab - Follow Up Plan Condition: GOOD Disposition: HOME/ ROUTINE Instructions: Heart Failure (DC), Coronary Artery Disease (DC), Acute Wound Care (DC), Chronic Hypertension (DC), Hyperlipidemia (DC) Additional Instructions: Keep wound clean and dry. If soiled, take shower or wash wound area w/ soap and water then replace a dry dressing (gauze/bandaid/etc..) over wound as needed. Follow up with Dr. Pimentel in 2 weeks. Call office for appointment. Referrals: Bowen Orantes MD [Primary Care Provider] - (Follow up in 1 week) Narayan Pimentel MD [Staff Provider] - (Follow up in 2 weeks) Procedures - Additional Procedures Progress: PICC Line Removal, Right upper extremity Correct patient and correct site confirmed, sterile technique (hand washing, gloves, sterile suture removal kit employed, sterile dressings) employed. Patient supine in bed, placed in trendelenberg position. Tegaderm covering removed, site around PICC line insertion site cleaned with alcohol prep pad, sutures securing PICC line cut and removed, Site covered with sterile dressing, PICC line removed, pressure held over site for 2-3 minutes, no overt bleeding noted after pressure, so dressing secured with plastic 3M tape, and PICC line disposed of. Patient tolerated procedure well.
--- NOTE | 2017-02-05 08:31 | PN ---
DATE: 02/02/2017 REASON FOR CONSULTATION AND FOLLOWUP: Continued care in transitional care unit, history of DVT, hist ory of a rectal abscess drained. BRIEF CLINICAL HISTORY: The patient denies any chest pain, shortness of breath, any palpitation. PHYSICAL EXAMINATION: VITAL SIGNS: Temperature afebrile, heart rate 64, blood pressure 114/63. HEENT: PERRLA. Extraocular muscles intact. NECK: Supple. No carotid bruits. No thyromegaly. CHEST: Clear to auscultation. HEART: S1, S2 regular. ABDOMEN: Soft. EXTREMITIES: Clubbing and cyanosis negative. LABORATORY DATA: Blood workup as follows: WBC 6.____, hemoglobin 11.____, hematocrit 34.8, and plat elet count 366. Chemistry shows sodium 130, potassium 4.2, chloride 105, carbon dioxide 26, anion ga p of 11, BUN 34, creatinine 1.3. IMPRESSION: History of coronary artery disease, history of percutaneous transluminal coronary angiop lasty 2012, history of repeat catheterization in ____, patent stent. History of permanent pacemaker in 2014, bilateral deep venous thrombosis. RECOMMENDATION: Continue Eliquis 10 mg for 1 week followed by 5 mg daily. Continue beta kim and local wound care. We will follow with you. Thank you, ____ , for providing the opportunity in taking care of the patient. Gale Mora MD cc: [id number] TT: 02/02/2017 19:54:15 Confirmation # [id number] Dictation # [id number]
== END 2017-02-02 16:44 | disposition home or self-care (01) | DRG 871 ==
LOC: TRCU 18:10
PROVIDERS: ADMIT Internal Medicine; ATTEND Internal Medicine
PROC: F07Z9ZZ Gait Training/Functional Ambulation Treatment (ICD-10-PCS; principal; 2017-01-26)
PROC: F08Z4ZZ Home Management Treatment (ICD-10-PCS; 2017-01-26)
PROC: 02PYX3Z Removal of Infusion Device from Great Vessel, External Approach (ICD-10-PCS; 2017-02-02)
DX: A41.9 Sepsis, unspecified organism (principal); K61.1 Rectal abscess; Z79.2 Long term (current) use of antibiotics; J18.9 Pneumonia, unspecified organism; I44.2 Atrioventricular block, complete; E46 Unspecified protein-calorie malnutrition; I11.0 Hypertensive heart disease with heart failure; I42.0 Dilated cardiomyopathy; I50.9 Heart failure, unspecified; I82.443 Acute embolism and thrombosis of tibial vein, bilateral; D64.9 Anemia, unspecified; I25.10 Atherosclerotic heart disease of native coronary artery without angina pectoris; K21.9 Gastro-esophageal reflux disease without esophagitis; E78.5 Hyperlipidemia, unspecified; E78.00 Pure hypercholesterolemia, unspecified; Y95 Nosocomial condition; Z85.46 Personal history of malignant neoplasm of prostate; Z95.5 Presence of coronary angioplasty implant and graft; Z95.0 Presence of cardiac pacemaker; Z87.891 Personal history of nicotine dependence

== ENCOUNTER 2017-02-04 11:03 | Inpatient (IN) | payer MEDICARE ==
[2017-02-04] MEDS ORDERED: Morphine 4 mg/ml ISec IVP STA (11:37)
--- NOTE | 2017-02-04 11:46 | ED PDOC ---
Arrival/HPI - General Chief Complaint: GI Problem Time Seen by Provider: 02/04/17 11:06 Historian: Patient - History of Present Illness Narrative History of Present Illness (Text): 02/04/17 11:42 [place] is a 76 year old male, with a history of CAD s/p stents, b/l LE DVT, prostate cancer s/p robotic reconstruction, GERD, hyperlipidemia, 3rd degree AV block, pacemaker, hypertension and rectal abscess, presents to the emergency department complaining of unresolved diarrhea. Patient was recently discharged from the hospital on 02/02/17 when he was admitted for IV antibiotics following rectal abscess drainage. Denies any fever, chills, headache, dizziness , nausea, vomiting, urinary symptoms, or any other complaints at this time. PMD: . Symptom Course: Unchanged Severity Level: Mild Activities at Onset: Light Past Medical History - Provider Review Nursing Documentation Reviewed: Yes - Tetanus Immunization Tetanus Immunization: Unknown - Cardiac Hx Cardiac Disorders: Yes Hx Cardiac Arrhythmia: Yes Hx Hypertension: Yes Hx Pacemaker: Yes - Pulmonary Hx Respiratory Disorders: No - Neurological Hx Neurological Disorder: No - HEENT Hx HEENT Disorder: Yes - Renal Hx Renal Disorder: Yes Other/Comment: renal stent 2014 - Endocrine/Metabolic Hx Endocrine Disorders: No - Hematological/Oncological Hx Blood Transfusions: No - Integumentary Hx Dermatological Disorder: Yes Other/Comment: POORLY HEALING SURGICAL WOUND TO BUTOCK - Musculoskeletal/Rheumatological Hx Back Pain: Yes Other/Comment: DVT - Gastrointestinal Hx Constipation: Yes Hx Gastritis: Yes - Genitourinary/Gynecological Hx Genitourinary Disorders: Yes Hx Prostate Problems: Yes - Psychiatric Hx Psychophysiologic Disorder: No Hx Emotional Abuse: No Hx Physical Abuse: No Hx Substance Use: No - Past Surgical History Past Surgical History: No Previous - Surgical History Hx Coronary Stent: Yes Other/Comment: PROSTATE, PICC, RECTAL ABSCESS, BACK SURGERY, RENAL ARTERY STENT - Anesthesia Hx Anesthesia: Yes - Suicidal Assessment Feels Threatened In Home Enviroment: No Family/Social History - Physician Review Nursing Documentation Reviewed: Yes Family/Social History: No Known Family HX Smoking Status: Former Smoker Hx Alcohol Use: No Hx Substance Use: No Allergies/Home Meds Allergies/Adverse Reactions: Allergies No Known Allergies Allergy (Verified 02/04/17 11:08) Home Medications: Home Meds Medication Instructions Recorded Confirmed Atorvastatin [Lipitor] 20 mg PO QPM 07/17/13 02/04/17 Aspirin [Aspirin Chewable] 81 mg PO DAILY 07/19/13 02/04/17 Irbesartan/Hydrochlorothiazide 1 tab PO DAILY 11/14/13 02/04/17 [Avalide 300-12.5 mg Tablet] Esomeprazole Magnesium [Nexium] 40 mg PO DAILY 02/08/16 02/04/17 Apixaban [Eliquis] 5 mg PO BID 02/04/17 02/04/17 Mupirocin 2% Cream [Bactroban 1 appl TOP DAILY 02/04/17 02/04/17 Cream] Review of Systems - Physician Review All systems were reviewed & negative as marked: Yes - Review of Systems Constitutional: Normal, Fatigue Respiratory: Normal. absent: SOB, Cough Cardiovascular: Normal. absent: Chest Pain, Palpitations Gastrointestinal: Diarrhea. absent: Abdominal Pain, Nausea, Vomiting Genitourinary Male: Normal Neurological: Normal. absent: Headache, Dizziness Psychiatric: Normal Physical Exam Vital Signs Reviewed: Yes Vital Signs Temp Pulse Resp BP Pulse Ox 02/04/17 15:11 18 99 02/04/17 13:03 74 18 152/65 H 96 02/04/17 11:08 97.8 F 62 18 157/67 H 97 Temperature: Afebrile Blood Pressure: Normal Pulse: Regular Respiratory Rate: Normal Appearance: Positive for: Well-Appearing, Non-Toxic, Comfortable Pain Distress: None Mental Status: Positive for: Alert and Oriented X 3 - Systems Exam Head: Present: Atraumatic, Normocephalic Pupils: Present: PERRL Conjunctiva: Present: Normal Mouth: Present: Moist Mucous Membranes Respiratory/Chest: Present: Clear to Auscultation, Good Air Exchange. No: Respiratory Distress, Accessory Muscle Use Cardiovascular: Present: Regular Rate and Rhythm, Normal S1, S2. No: Murmurs Abdomen: Present: Tenderness (non-focal tenderness ), Normal Bowel Sounds. No: Distention, Peritoneal Signs, Rebound, Guarding Back: Present: Normal Inspection Upper Extremity: Present: Normal Inspection. No: Cyanosis, Edema Lower Extremity: Present: Normal Inspection. No: Edema Neurological: Present: GCS=15, CN II-XII Intact, Speech Normal, Motor Func Grossly Intact, Normal Sensory Function Skin: Present: Warm, Dry, Normal Color. No: Rashes Psychiatric: Present: Alert, Oriented x 3, Normal Insight, Normal Concentration Medical Decision Making ED Course and Treatment: 02/04/17 11:48 Impression: A 76 year old male who presents to the emergency department complaining of unresolved diarrhea. Plan: -- CT abdomen pelvis -- EKG -- Labs, cardiac enzymes -- Chest X-ray -- Morphine -- IV fluids -- C Diff -- Urinalysis -- Reassess and disposition Progress Notes: EKG interpreted by me: paced @ 70 bpm. 02/04/17 14:09 PROCEDURE: CT Abdomen and Pelvis without intravenous contrast FINDINGS: LOWER THORAX: Unremarkable. LIVER: Unremarkable. No gross lesion or ductal dilatation. GALLBLADDER AND BILE DUCTS: Unremarkable. PANCREAS: Unremarkable. No gross lesion or ductal dilatation. SPLEEN: Unremarkable. ADRENALS: Unremarkable. No mass. KIDNEYS AND URETERS: Unremarkable. No hydronephrosis. No solid mass. VASCULATURE: Unremarkable. No aortic aneurysm. BOWEL: There is mural thickening in the rectosigmoid consistent with colitis. There is a small air collection in the left gluteal and perirectal region. On the previous study there was an extensive phlegmon and gas collection which has since resolved. APPENDIX: Unremarkable. Normal appendix. PERITONEUM: Unremarkable. No free fluid. No free air. LYMPH NODES: Unremarkable. No enlarged lymph nodes. BLADDER: Unremarkable. REPRODUCTIVE: Unremarkable. BONES: No acute fracture. OTHER FINDINGS: None. IMPRESSION: There is mural thickening in the rectosigmoid consistent with colitis. There is a small air collection in the left gluteal and perirectal region. On the previous study there was an extensive phlegmon and gas collection which has since resolved. 02/04/17 14:38 CT scan shows colitis. C.diff sent. Started on antibiotics empirically. Case discussed with Dr. Lemus who accepts patient under his service. - Lab Interpretations Lab Results: 02/04/17 11:50 02/04/17 11:50 Lab Results 02/04/17 11:50: Sodium 137, Potassium 4.0, Chloride 104, Carbon Dioxide 22, Anion Gap 15, BUN 44 H, Creatinine 1.5 H, Est GFR ( Amer) 55, Est GFR ( Non-Af Amer) 46, Random Glucose 187 H, Calcium 9.2, Magnesium 1.9, Total Bilirubin 0.6, AST 27, ALT 49, Alkaline Phosphatase 63, Lactate Dehydrogenase 389, Total Creatine Kinase < 20 L, Troponin I 0.02 D, Total Protein 7.0, Albumin 3.4, Globulin 3.6, Albumin/Globulin Ratio 0.9 L, Lipase 39 02/04/17 11:50: PT 14.3 H, INR 1.32 H, APTT 35.9 H 02/04/17 11:50: WBC 9.0 D, RBC 4.04, Hgb 12.6 L, Hct 38.0 L, MCV 94.1, MCH 31.2 , MCHC 33.2, RDW 16.0 H, Plt Count 315, MPV 10.6, Gran % 73.4 H, Lymph % (Auto) 21.8 L, [place] % (Auto) 4.5, Eos % (Auto) 0.1 L, Baso % (Auto) 0.2, Gran # 6.61 H , Lymph # 2.0, [place] # 0.4, Eos # 0.0, Baso # 0.02 I have reviewed the lab results: Yes - RAD Interpretation Radiology Orders: 02/04/17 11:36 CHEST PORTABLE [RAD] Stat 02/04/17 12:54 ABD & PELVIS W/O PO OR IV CONT [CT] Stat Odd Bundle Worker: Radiologist - EKG Interpretation Interpreted by ED Physician: Yes Type: 12 lead EKG - Medication Orders Current Medication Orders: Acetaminophen (Tylenol 650mg/20.3ml Solution Ud) 650 mg PO Q4H PRN PRN Reason: Pain, moderate (4-7) Last Admin: 02/04/17 16:15 Dose: 650 mg Re-Assess: [facility] Pain/Vitals Document 02/04/17 17:15 SD (Rec: 02/04/17 17:29 SD [facility]-[id number]) Pain Reassessment Is This A Pain ReAssessment? Yes Sleep Is patient sleeping during reassessment? Yes Apixaban (Eliquis) 5 mg PO BID ADRIANNE PRN Reason: Protocol Last Admin: 02/04/17 17:26 Dose: 5 mg Aspirin (Aspirin Chewable) 81 mg PO DAILY [facility] Atorvastatin Calcium (Lipitor) 20 mg PO QPM [facility] Last Admin: 02/04/17 17:26 Dose: 20 mg Hydralazine HCl (Apresoline) 10 mg IVP Q6 PRN PRN Reason: Systolic Blood Pressure Hydrochlorothiazide (Microzide) 12.5 mg PO DAILY ADRIANNE Sodium Chloride (Sodium Chloride 0.9%) 1,000 mls @ 100 mls/hr IV .Q10H ADRIANNE Last Admin: 02/04/17 12:13 Dose: 100 mls/hr Metronidazole (Flagyl) 250 mg in 50 mls @ 100 mls/hr IVPB Q8 ADRIANNE PRN Reason: Protocol Stop: 02/09/17 22:01 Losartan Potassium (Cozaar) 100 mg PO DAILY ADRIANNE Morphine Sulfate (Morphine) 2 mg IVP Q6H PRN PRN Reason: Pain, severe (8-10) Mupirocin (Bactroban Ointment) 0 gm TOP DAILY ADRIANNE Ondansetron HCl (Zofran Inj) 4 mg IVP Q4H PRN PRN Reason: Nausea/Vomiting Pantoprazole Sodium (Protonix Inj) 40 mg IVP DAILY ADRIANNE Vancomycin HCl (Vancocin 25 Mg/Ml (Oral Use)) 250 mg PO QID ADRIANNE PRN Reason: Protocol Discontinued Medications Piperacillin Sod/Tazobactam Sod (Zosyn 3.375 In Ns 100ml) 100 mls @ 200 mls/hr IVPB STAT STA PRN Reason: Protocol Stop: 02/04/17 14:53 Last Admin: 02/04/17 15:10 Dose: 200 mls/hr Morphine Sulfate (Morphine) 4 mg IVP STAT STA Stop: 02/04/17 11:38 Last Admin: 02/04/17 12:10 Dose: 4 mg - Scribe Statement The provider has reviewed the documentation as recorded by the Lex Wells Provider Attestation: Provider Scribe Attestation: All medical record entries made by the Lexisibtaz were at my direction and personally dictated by me. I have reviewed the chart and agree that the record accurately reflects my personal performance of the history, physical exam, medical decision making, and the department course for this patient. I have also personally directed, reviewed, and agree with the discharge instructions and disposition. Disposition/Present on Arrival - Present on Arrival Any Indicators Present on Arrival: No History of DVT/PE: Yes History of Uncontrolled Diabetes: No Urinary Catheter: No History of Decub. Ulcer: No History Surgical Site Infection Following: None - Disposition Have Diagnosis and Disposition been Completed?: Yes Diagnosis: Colitis Disposition: HOSPITALIZED Disposition Time: 04:00 Condition: FAIR
[2017-02-04 12:12] LABS: BASO # 0.02 K/mm3 (0.0-2.0); BASO % 0.2 % (0.0-3.0); EOS % 0.1 % (1.5-5.0); GRAN # 6.61 (1.4-6.5); GRAN % 73.4 % (50.0-68.0); HEMOGLOBIN 12.6 gm/dL (14.0-18.0); LYMPH % 21.8 % (22.0-35.0); MEAN CELL VOLUME 94.1 fL (80.0-105.0); MEAN CORPUSCULAR HEMOGLOBIN 31.2 pg (25.0-35.0); MEAN CORPUSCULAR HGB CONC 33.2 g/dl (31.0-37.0); MEAN PLATELET VOLUME 10.6 fl (7.0-11.0); MONO # 0.4 (0.1-0.6); MONO % 4.5 % (1.0-6.0); PLATELET COUNT 315 10^3/uL (120.0-450.0); RBC 4.04 10^6/uL (3.5-6.1)
[2017-02-04] MEDS: Sodium Chloride 0.9% 1,000 ML IV SCH ×2 (12:13→22:17)
--- NOTE | 2017-02-04 12:16 | RAD ---
HISTORY: abd pain COMPARISON: No prior. FINDINGS: LUNGS: No active pulmonary disease. PLEURA: No significant pleural effusion identified, no pneumothorax apparent. CARDIOVASCULAR: Normal. OSSEOUS STRUCTURES: No significant abnormalities. VISUALIZED UPPER ABDOMEN: Normal. OTHER FINDINGS: Single lead pacemaker IMPRESSION: No active disease.
[2017-02-04 12:22] LABS: INR 1.32 (0.93-1.08); PARTIAL THROMBOPLASTIN TIME 35.9 Seconds (23.7-30.8); PROTHROMBIN TIME 14.3 Seconds (9.9-11.8)
[2017-02-04 12:31] LABS: ALB/GLOB RATIO 0.9 (1.1-1.8); ALBUMIN 3.4 g/dL (3.0-4.8); ALT/SGPT 49 U/L (7-56); AST/SGOT 27 U/L (15-59); BLOOD UREA NITROGEN 44 mg/dL (7-21); CALCIUM 9.2 mg/dL (8.4-10.5); GFR AFRICAN-AMERICAN 55; GFR NON-AFRICAN AMERICAN 46; LIPASE 39 U/L (23-300); MAGNESIUM 1.9 mg/dL (1.7-2.2)
[2017-02-04 12:43] LABS: TROPONIN I 0.02 ng/mL
--- NOTE | 2017-02-04 14:06 | CT ---
PROCEDURE: CT Abdomen and Pelvis without intravenous contrast HISTORY: abd pain, diarrhea COMPARISON: 12/27/2016 TECHNIQUE: Without contrast.. Contrast Dose: Radiation dose: Total exam DLP = 820 mGy-cm. This CT exam was performed using one or more of the following dose reduction techniques: Automated exposure control, adjustment of the mA and/or kV according to patient size, and/or use of iterative reconstruction technique. FINDINGS: LOWER THORAX: Unremarkable. LIVER: Unremarkable. No gross lesion or ductal dilatation. GALLBLADDER AND BILE DUCTS: Unremarkable. PANCREAS: Unremarkable. No gross lesion or ductal dilatation. SPLEEN: Unremarkable. ADRENALS: Unremarkable. No mass. KIDNEYS AND URETERS: Unremarkable. No hydronephrosis. No solid mass. VASCULATURE: Unremarkable. No aortic aneurysm. BOWEL: There is mural thickening in the rectosigmoid consistent with colitis. There is a small air collection in the left gluteal and perirectal region. On the previous study there was an extensive phlegmon and gas collection which has since resolved. APPENDIX: Unremarkable. Normal appendix. PERITONEUM: Unremarkable. No free fluid. No free air. LYMPH NODES: Unremarkable. No enlarged lymph nodes. BLADDER: Unremarkable. REPRODUCTIVE: Unremarkable. BONES: No acute fracture. OTHER FINDINGS: None. IMPRESSION: There is mural thickening in the rectosigmoid consistent with colitis. There is a small air collection in the left gluteal and perirectal region. On the previous study there was an extensive phlegmon and gas collection which has since resolved.
[2017-02-04] MEDS ORDERED: Piperacillin/Tazobact 3.375 gm 100 ML IVPB STA (14:24)
--- NOTE | 2017-02-04 15:06 | CP.PCM.HP ---
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 Pt was recently hospitalized with complaints of perirectal pain determined to be due to abscess, which as since been debrided, drained and packed by Surgical team, Dr. Yang. Pt was doing well and having normally formed stools upon discharge this past sunday. However, as the patient went home and had a hamburger meal, he began having loose bowel movements every 2- 4hrs, as per pt. Pt also reported extensive gas and bloating after eating the hamburger. Subsequently, his appetite diminished and had 2 small meals in the following days. Pt does not complain of abdominal tenderness, however has complaints of abdominal discomfort. Pt also admitted to thigh pain, which he has expereinced since being dx with dvt. Pt denied fever, chills, sob, chest pains, abdominal pains, n/v/c. Pt has mild complaints of dysuria. PMHx: DVT on elaquis, CAD with stents in the past, h/o prostate ca s/p robotic reconstruction ( 6 yrs ago), Gerd, hld, 3rd degree AV block s/p PPM, h/o dilated cardiomyopathy ( latest MUGA scan with LVEF of 60%), htn, h/o syncope. PSHx: Robotic prostrate cancer recontruciton, back surgery, PPM, carotid endarterectomy ( last year) Allergies: NKDA Social Hx: former smoker, quit 4 yrs ago, denies alcohol or illicit drug use Family Hx: noncontributory PMD: Dr. Orantes Present on Admission - Present on Admission Any Indicators Present on Admission: Yes History of DVT/PE: Yes Review of Systems - Review of Systems Review of Systems: as per HPI otherwise negative Past Patient History - Tetanus Immunizations Tetanus Immunization: Unknown - Past Medical History & Family History Past Medical History?: Yes - Past Social History Smoking Status: Former Smoker - CARDIAC Hx Cardiac Disorders: Yes Hx Cardia Arrhythmia: Yes Hx Hypertension: Yes Hx Pacemaker: Yes - PULMONARY Hx Respiratory Disorders: No - NEUROLOGICAL Hx Neurological Disorder: No - HEENT Hx HEENT Problems: Yes - RENAL Hx Chronic Kidney Disease: Yes Other/Comment: renal stent 2014 - ENDOCRINE/METABOLIC Hx Endocrine Disorders: No - HEMATOLOGICAL/ONCOLOGICAL Hx Blood Transfusions: No - INTEGUMENTARY Hx Dermatological Problems: Yes Other/Comment: POORLY HEALING SURGICAL WOUND TO BUTOCK - MUSCULOSKELETAL/RHEUMATOLOGICAL Hx Back Pain: Yes Other/Comment: DVT - GASTROINTESTINAL Hx Constipation: Yes Hx Gastritis: Yes - GENITOURINARY/GYNECOLOGICAL Hx Genitourinary Disorders: Yes Hx Prostate Problems: Yes - PSYCHIATRIC Hx Psychophysiologic Disorder: No Hx Emotional Abuse: No Hx Physical Abuse: No Hx Substance Use: No - SURGICAL HISTORY Hx Coronary Stent: Yes Other/Comment: PROSTATE, PICC, RECTAL ABSCESS, BACK SURGERY, RENAL ARTERY STENT - ANESTHESIA Hx Anesthesia: Yes Meds Allergies/Adverse Reactions: Allergies Allergy/AdvReac Type Severity Reaction Status Date / Time No Known Allergies Allergy Verified 02/04/17 11:08 Physical Exam - Constitutional Appears: No Acute Distress - Head Exam Head Exam: ATRAUMATIC, NORMAL INSPECTION, NORMOCEPHALIC - Eye Exam Eye Exam: EOMI, Normal appearance, PERRL Pupil Exam: NORMAL ACCOMODATION, PERRL - ENT Exam ENT Exam: Mucous Membranes Moist, Normal Exam - Neck Exam Neck exam: Positive for: Normal Inspection - Respiratory Exam Respiratory Exam: Clear to Auscultation Bilateral, NORMAL BREATHING PATTERN - Cardiovascular Exam Cardiovascular Exam: REGULAR RHYTHM, +S1, +S2 - GI/Abdominal Exam GI & Abdominal Exam: Normal Bowel Sounds, Soft, Tenderness Additional comments: diffuse discomfort not tender - Extremities Exam Extremities exam: Positive for: normal inspection - Neurological Exam Additional comments: Perirectal wound dressings - Psychiatric Exam Psychiatric exam: Normal Affect, Normal Mood - Skin Skin Exam: Dry, Intact, Normal Color, Warm Results - Vital Signs Recent Vital Signs: Last Vital Signs Temp 97.8 F 02/04/17 11:08 Pulse 74 02/04/17 13:03 Resp 18 02/04/17 13:03 BP 152/65 H 02/04/17 13:03 Pulse Ox 96 02/04/17 13:03 - Labs Result Diagrams: 02/04/17 11:50 02/04/17 11:50 Assessment & Plan - Assessment and Plan (Free Text) Assessment: 76 M with PMHx of DVT on elaquis, CAD s/p stent placement, prostate cancer s/p robotic reconstruction, GERD, hyperlipidemia, 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 1. Abdominal Discomfort and diarrhea - CT abd demonstrated rectosigmoid colitis - C.diff pending - Empirically po vanco and flagyl - Fu stool cultures, ova/parasites, fecal leukocytes - GI consulted, Dr. Moat - IVF, monitor elytes and supplement as needed 2. DENISE - prerenal, dehydration 2/2 above - IVF - continue to monitor renal fcn 3. Perirectal abscess -Patient is s/p incision & drainage followed by debridement and further debridement -Blood and urine cultures have remain negative on previous admission -Continue with wound care -Afebrile, no leukocytosis 4. Bilateral DVT - continue therapeutic AC with elaquis - H/H stable 5. CAD w/ stents -continue ASA, hctz and cozaar 6. HLD - continue with home meds, lipitor 7. GI DVT Ppx reviewed Patient seen, reviewed, and discussed with Dr. Sharpe. <Woody Sharpe - Last Filed: 02/08/17 17:14> Results - Vital Signs Recent Vital Signs: Last Vital Signs Temp 98.2 F 02/08/17 07:30 Pulse 60 02/08/17 07:30 Resp 18 02/08/17 07:30 BP 163/72 H 02/08/17 07:30 Pulse Ox 98 02/08/17 07:30 - Labs Result Diagrams: 02/08/17 06:20 02/08/17 06:20 Labs: Laboratory Results - last 24 hr 02/08/17 02/08/17 06:20 06:20 WBC 6.2 RBC 3.73 Hgb 11.0 L Hct 33.4 L MCV 89.5 MCH 29.5 MCHC 32.9 RDW 14.6 H Plt Count 282 MPV 10.6 Gran % 36.1 L Lymph % (Auto) 49.0 H [place] % (Auto) 6.3 H Eos % (Auto) 8.3 H Baso % (Auto) 0.3 Gran # 2.23 Lymph # 3.0 [place] # 0.4 Eos # 0.5 Baso # 0.02 Sodium 140 Potassium 4.0 Chloride 109 H Carbon Dioxide 24 Anion Gap 11 BUN 11 Creatinine 1.0 Est GFR ( Amer) > 60 Est GFR (Non-Af Amer) > 60 Random Glucose 92 Calcium 8.7 Phosphorus 3.5 Magnesium 1.6 L Total Bilirubin 0.4 AST 43 ALT 53 Alkaline Phosphatase 55 Total Protein 6.1 Albumin 2.8 L Globulin 3.2 Albumin/Globulin Ratio 0.9 L Attending/Attestation - Attestation I have personally seen and examined this patient.: Yes I have fully participated in the care of the patient.: Yes I have reviewed all pertinent clinical information: Yes Notes (Text): 02/08/17 17:14 Medical record note made by the resident after discussion with my direction and input after the patient was personally seen and examined by me. I have reviewed the chart and agree that the record accurately reflects by personal performance of the history, physical exam, data review, and medical decision-making, in the course for the patient. I have also personally directed the plan of care.
[2017-02-04 15:38] LABS: PH,URINE 5.5 (4.7-8.0); URINE BILIRUBIN NEGATIVE (NEGATIVE); URINE BLOOD TRACE-INTACT (NEGATIVE); URINE GLUCOSE (UA) NEGATIVE (NEGATIVE); URINE LEUKOCYTE ESTERASE NEGATIVE Leu/uL (NEGATIVE); URINE NITRATE NEGATIVE (NEGATIVE); URINE PROTEIN 30 mg/dL (<30 mg/dL); URINE UROBILINOGEN 0.2 E.U./dL (<1 E.U./dL)
[2017-02-04] MEDS ORDERED: Morphine 2 mg/ml ISec IVP PRN (15:44)
[2017-02-04 15:45] LABS: URINE APPEARANCE CLEAR (CLEAR); URINE COLOR YELLOW (YELLOW)
[2017-02-04 15:56] LABS: URINE BACTERIA MANY (NEG); URINE WBC 0 - 2 /hpf (0-6)
[2017-02-04 15:57] LABS: URINE AMORPHOUS SEDIMENT FEW; URINE COARSE GRANULAR CAST SMALL /hpf (0-2); URINE HYALINE CAST 0 - 2 /hpf
[2017-02-04] MEDS: Acetaminophen 650mg/20.3ml solution UD PO PRN ×2 (16:15→21:17)
[2017-02-04] MEDS: Vancomycin 25 MG/ML PO SCH ×2 (17:44→22:19)
[2017-02-04 18:05] VITALS: BMI 27.8
[2017-02-04] MEDS: metroNIDAZOLE IV 250mg/50 ml 250 MG/50 ML BAG IVPB SCH (22:16)
[2017-02-04] MEDS ORDERED: DiphenhydrAMINE 50 mg/ml Inj IVP STA (22:18)
--- NOTE | 2017-02-05 01:04 | CARD ---
APPROVED REPORT EKG Measurement Heart [id number] CT P63 [id number] <Conclusion> Electronic ventricular pacemaker
[2017-02-05] MEDS ORDERED: Alum-Mag Hydrox-Simethicone Susp (30 mL) PO PRN (04:18)
[2017-02-05] MEDS: metroNIDAZOLE IV 250mg/50 ml 250 MG/50 ML BAG IVPB SCH ×3 (05:35→22:19)
[2017-02-05 07:11] LABS: BASO # 0.02 K/mm3 (0.0-2.0); BASO % 0.3 % (0.0-3.0); EOS # 0.1 (0.0-0.7); EOS % 1.4 % (1.5-5.0); GRAN # 3.16 (1.4-6.5); GRAN % 50.3 % (50.0-68.0); HEMOGLOBIN 10.8 gm/dL (14.0-18.0); LYMPH # 2.5 (1.2-3.4); LYMPH % 39.4 % (22.0-35.0); MEAN CELL VOLUME 93.3 fL (80.0-105.0); MEAN CORPUSCULAR HEMOGLOBIN 30.1 pg (25.0-35.0); MEAN CORPUSCULAR HGB CONC 32.2 g/dl (31.0-37.0); MEAN PLATELET VOLUME 10.4 fl (7.0-11.0); MONO # 0.5 (0.1-0.6); MONO % 8.6 % (1.0-6.0); PLATELET COUNT 263 10^3/uL (120.0-450.0); RBC 3.59 10^6/uL (3.5-6.1); RED CELL DISTRIBUTION WIDTH 15.8 % (11.5-14.5); WHITE BLOOD COUNT 6.3 10^3/ul (4.5-11.0)
[2017-02-05 07:33] LABS: ALB/GLOB RATIO 0.9 (1.1-1.8); ALBUMIN 2.9 g/dL (3.0-4.8); CALCIUM 8.6 mg/dL (8.4-10.5)
[2017-02-05] MEDS: Sodium Chloride 0.9% 1,000 ML IV SCH ×3 (07:45→22:21)
[2017-02-05] MEDS: Acetaminophen 650mg/20.3ml solution UD PO PRN ×3 (09:36→23:31)
[2017-02-05] MEDS ORDERED: HYDROCHLOROTHIAZIDE PO SCH (10:00)
[2017-02-05] MEDS ORDERED: MUPIROCIN 2% TOP SCH (10:00)
[2017-02-05] MEDS ORDERED: IRBESARTAN PO SCH (10:00)
[2017-02-05] MEDS ORDERED: [UNRECOGNIZED DRUG - OTHER] PO SCH (10:00)
[2017-02-05] MEDS: Vancomycin 25 MG/ML PO SCH ×4 (11:08→23:33)
--- NOTE | 2017-02-05 12:59 | CON ---
DATE: 02/05/2017 REQUESTING PHYSICIAN: Dr. Orantes. REASON FOR CONSULTATION: I have been asked to see this 76-year-old white male just recently discharg ed 3 days ago after a prolonged hospitalization with multiple surgeries for a large left ischiorectal abscess who, the day after being discharged home, developed severe intractable diarrhea. Prior to d ischarge home, the patient did not have any diarrhea, had regular bowel movements and was tolerating solid foods. The patient had been on broad spectrum antibiotics for his perirectal abscess. He cont inues to have loose watery bowel movements, nonbloody. He denies any nausea, vomiting, fevers or chi lls. He does admit to some abdominal cramps. PAST MEDICAL HISTORY: Notable for left ischiorectal abscess, status post multiple surgeries, drainag e procedures and debridement procedures; history of coronary artery disease, status post stent placem ent; history of arrhythmia with third degree atrioventricular block requiring permanent pacemaker, hi story of dilated cardiomyopathy, hypertension; deep venous thrombosis, on Eliquis, recently diagnosed and treated; prostate cancer, gastroesophageal reflux disease, hyperlipidemia. PAST SURGICAL HISTORY: Notable for drainage of left ischiorectal abscess with multiple debridements and partial closure of a large perirectal wound, status post permanent pacemaker placement, status po st prostatectomy, back surgery, carotid endarterectomy. SOCIAL HISTORY: Denies recent cigarette smoking or alcohol use. He is a former heavy cigarette smok er; he quit 4 years ago. FAMILY HISTORY: Noncontributory. REVIEW OF SYSTEMS: A 14-point review of systems is positive for diarrhea and abdominal cramps. PHYSICAL EXAMINATION: GENERAL: Elderly male lying in bed in no acute distress. VITAL SIGNS: Reveal temperature of 97.8, blood pressure 146/64, heart rate is 68. HEENT: Reveals sclerae to be white, conjunctivae pink. Oral mucosa slightly dry. NECK: Supple. CHEST: Reveal lungs to be clear. HEART: Reveals a regular rate and rhythm. ABDOMEN: Soft, nontender, slightly protuberant. EXTREMITIES: Show no edema. RECTAL: Shows multiple wounds from his perirectal abscess which appeared to be healing. LABORATORY DATA: Reveal white blood cell count 6.3, hemoglobin 10.8. Chemistries reveal a chloride of 108, bicarb of 26, BUN 38, creatinine 1.4. IMPRESSION: A 76-year-old male just recently discharged from the hospital after a prolonged hospital ization for a large ischiorectal abscess, status post multiple drainage procedures, a closure procedu re, debridements; recently diagnosed with deep venous thrombosis, on Eliquis; with profuse diarrhea a fter being discharged home. One must rule out pseudomembranous colitis. CT scan of the abdomen and pelvis shows nonspecific thickening of the rectosigmoid area. RECOMMENDATIONS: 1. Check stool for C. difficile. 2. The patient has been empirically started on vancomycin 250 mg 4 times a day. 3. Will start the patient on probiotics and cholestyramine as a binding agent. Bowen Mota MD cc: [id number] TT: 02/05/2017 12:58:25 Confirmation # [id number] Dictation # [id number]
[2017-02-05] MEDS: Lactobacillus Acidophilus 500 MU Cap PO SCH ×2 (14:57→18:28)
--- NOTE | 2017-02-05 19:40 | CP.PCM.PN ---
<Pablito Barrera - Last Filed: 02/05/17 20:13> Subjective - Date & Time of Evaluation Date of Evaluation: 02/05/17 Time of Evaluation: 07:10 - Subjective Subjective: Internal Medicine Progress Note for Dr. Orantes/Dr. Sharpe service Patient seen and examined at bedside. Today is hospital 2. No acute events overnight. Today, complains of moderate abdominal pain, somewhat improved over yesterday, and persistence of bilateral leg pain (L>R). Denies chest pain, shortness of breath, nausea/emesis, hematochezia/melena, or dysuria/hematuria, Objective - Vital Signs/Intake and Output Vital Signs (last 24 hours): Temp Pulse Resp BP Pulse Ox 98 F 64 18 129/54 L 98 02/05/17 17:26 02/05/17 17:26 02/05/17 17:26 02/05/17 17:26 02/05/17 17:26 - Medications Medications: Current Medications Acetaminophen (Tylenol 650mg/20.3ml Solution Ud) 650 mg PO Q4H PRN PRN Reason: Pain, moderate (4-7) Last Admin: 02/05/17 15:38 Dose: 650 mg Al Hydrox/Mg Hydrox/Simethicone (Maalox Plus 30 Ml) 30 ml PO DAILY PRN PRN Reason: Indigestion / Heartburn Apixaban (Eliquis) 5 mg PO BID [facility]RIANNE PRN Reason: Protocol Last Admin: 02/05/17 18:29 Dose: 5 mg Aspirin (Aspirin Chewable) 81 mg PO DAILY [facility] Last Admin: 02/05/17 09:41 Dose: 81 mg Atorvastatin Calcium (Lipitor) 20 mg PO QPM [facility] Last Admin: 02/05/17 18:28 Dose: 20 mg Cholestyramine Resin (Questran) 4 gm PO AC [facility] Hydralazine HCl (Apresoline) 10 mg IVP Q6 PRN PRN Reason: Systolic Blood Pressure Hydrochlorothiazide (Microzide) 12.5 mg PO DAILY [facility] Last Admin: 02/05/17 09:41 Dose: 12.5 mg Sodium Chloride (Sodium Chloride 0.9%) 1,000 mls @ 100 mls/hr IV .Q10H [facility] Last Admin: 02/05/17 18:22 Dose: 100 mls/hr Metronidazole (Flagyl) 250 mg in 50 mls @ 100 mls/hr IVPB Q8 [facility] PRN Reason: Protocol Stop: 02/09/17 22:01 Last Admin: 02/05/17 14:55 Dose: 100 mls/hr Lactobacillus Acidophilus (Bacid Acidophilus) 1 cap PO TID [facility] Last Admin: 02/05/17 18:28 Dose: 1 cap Losartan Potassium (Cozaar) 100 mg PO DAILY [facility] Last Admin: 02/05/17 09:41 Dose: 100 mg Morphine Sulfate (Morphine) 2 mg IVP Q6H PRN PRN Reason: Pain, severe (8-10) Mupirocin (Bactroban Ointment) 0 gm TOP DAILY [facility] Last Admin: 02/05/17 14:57 Dose: 1 applic Ondansetron HCl (Zofran Inj) 4 mg IVP Q4H PRN PRN Reason: Nausea/Vomiting Pantoprazole Sodium (Protonix Inj) 40 mg IVP DAILY [facility] Last Admin: 02/05/17 09:41 Dose: 40 mg Vancomycin HCl (Vancocin 25 Mg/Ml (Oral Use)) 250 mg PO QID [facility] PRN Reason: Protocol Last Admin: 02/05/17 18:28 Dose: 250 mg - Labs Labs: PT 14.3 Seconds (9.9-11.8) H 02/04/17 11:50 INR 1.32 (0.93-1.08) H 02/04/17 11:50 APTT 35.9 Seconds (23.7-30.8) H 02/04/17 11:50 - Additional Findings Additional findings: - Constitutional Appears: Non-toxic, Mild-distress 2/2 bilateral leg pain (L>R) and abdominal pain - Head Exam Head Exam: ATRAUMATIC, NORMAL INSPECTION, NORMOCEPHALIC - Eye Exam Eye Exam: EOMI, Normal appearance. absent: Conjunctival injection, Scleral icterus Pupil Exam: absent: Irregular, Unequal - ENT Exam ENT Exam: Mucous Membranes Moist - Neck Exam Neck Exam: Full ROM. absent: Tenderness, JVD - Respiratory Exam Respiratory Exam: Clear to Ausculation Bilateral, NORMAL BREATHING PATTERN. absent: Accessory Muscle Use, Chest Wall Tenderness, Decreased Breath Sounds, Rales, Rhonchi, Wheezes - Cardiovascular Exam Cardiovascular Exam: REGULAR RHYTHM, RRR, +S1, +S2. absent: Bradycardia, Tachycardia, Irregular Rhythm, +S4 - GI/Abdominal Exam GI & Abdominal Exam: Soft, Normal Bowel Sounds, Diffuse tenderness to palpation (most prominent along epigastric and LLQ regions), Rebound tenderness (LLQ). absent: Distended, Firm, Rigid - Extremities Exam Extremities Exam: Tenderness along lateral upper thighs (L>R), No edema/erythema /temperature abnormalities on palpation bilaterally, +1 dorsalis pedis and +2 radial pulses bilaterally - Back Exam Back Exam: absent: rash noted - Neurological Exam Neurological Exam: Alert, Awake, Oriented x3 - Psychiatric Exam Psychiatric exam: Normal Affect, Normal Mood - Skin Skin Exam: Dry, Intact, Normal Color, Warm Assessment and Plan - Assessment and Plan (Free Text) Assessment: This is a 76 yo M with PMH of CAD s/p stent placement, prostate cancer s/p robotic reconstruction, GERD, hyperlipidemia, 3rd degree AV block s/ p permanent pacer, dilated cardiomyopathy (latest MUGA scan with LVEF of 60%), and hypertension who represents [place] [facility] [place] with complaint of profuse watery diarrhea and diffuse abdominal pain. Plan: 1) Abdominal Discomfort and diarrhea -CT abd demonstrated rectosigmoid colitis -C.diff positive, so likely C. diff colitis, continue PO vanco and flagyl -stool cultures, ova/parasites, and fecal leukocytes pending -GI (Dr. Mota) consulted, appreciate all recs; recs probiotics and cholestyramine -IVF, heart-healthy diet as tolerated -monitor and replete electrolytes as needed 2) DENISE -prerenal, likely dehydration 2/2 colitis/diarrhea -IVF, monitor and replete electrolytes as needed -continue to monitor renal fcn 3) Perirectal abscess -Patient is s/p incision & drainage followed by debridement and further debridement, as per Surgical team -Blood and urine cultures have remain negative on previous admission -Continue with wound care, minimal packing required -scheduled for outpatient followup with Surgery two weeks from most recent discharge -Afebrile, no leukocytosis 4) Bilateral DVT -continue therapeutic AC with eliquis -H/H stable, continue to monitor 5) CAD w/ stents -continue ASA, hctz and cozaar 6) HLD -continue lipitor Dispo: Med/Surg, on abx regimen for C. Diff, IVF to maintain appropriate hydration, pending regularly tolerating diet FEN: Heart-healthy diet, NS 100cc/hr Access: Peripheral IV Consults: GI Ppx: protonix for GI, Eliquis covers for DVT Patient seen, reviewed, and discussed with attending, Dr. Sharpe. <Woody Sharpe - Last Filed: 02/08/17 17:15> Objective - Vital Signs/Intake and Output Vital Signs (last 24 hours): Temp Pulse Resp BP Pulse Ox 98.2 F 60 18 163/72 H 98 02/08/17 07:30 02/08/17 07:30 02/08/17 07:30 02/08/17 07:30 02/08/17 07:30 Intake and Output: 02/08/17 02/08/17 06:59 18:59 Intake Total 2760 720 Output Total 300 700 Balance 2460 20 - Medications Medications: Current Medications Acetaminophen (Tylenol 650mg/20.3ml Solution Ud) 650 mg PO Q4H PRN PRN Reason: Pain, moderate (4-7) Last Admin: 02/08/17 14:30 Dose: 650 mg Apixaban (Eliquis) 5 mg PO BID [facility] PRN Reason: Protocol Last Admin: 02/08/17 10:52 Dose: 5 mg Aspirin (Aspirin Chewable) 81 mg PO DAILY [facility] Last Admin: 02/08/17 10:52 Dose: 81 mg Atorvastatin Calcium (Lipitor) 20 mg PO QPM [facility] Last Admin: 02/07/17 17:37 Dose: 20 mg Cholestyramine Resin (Questran) 4 gm PO AC [facility] Last Admin: 02/08/17 16:33 Dose: 4 gm Diphenhydramine HCl (Benadryl) 50 mg PO HS PRN PRN Reason: Insomnia Last Admin: 02/07/17 23:15 Dose: 50 mg Hydralazine HCl (Apresoline) 10 mg IVP Q6 PRN PRN Reason: Systolic Blood Pressure Hydrochlorothiazide (Microzide) 12.5 mg PO DAILY [facility] Last Admin: 02/08/17 10:53 Dose: 12.5 mg Sodium Chloride (Sodium Chloride 0.9%) 1,000 mls @ 100 mls/hr IV .Q10H [facility] Last Admin: 02/06/17 23:31 Dose: 100 mls/hr Metronidazole (Flagyl) 250 mg in 50 mls @ 100 mls/hr IVPB Q8 [facility] PRN Reason: Protocol Stop: 02/09/17 22:01 Last Admin: 02/08/17 13:27 Dose: 100 mls/hr Lactobacillus Acidophilus (Bacid Acidophilus) 1 cap PO TID [facility] Last Admin: 02/08/17 13:27 Dose: 1 cap Losartan Potassium (Cozaar) 100 mg PO DAILY [facility] Last Admin: 02/08/17 10:53 Dose: 100 mg Mupirocin (Bactroban Ointment) 0 gm TOP DAILY [facility] Last Admin: 02/08/17 10:53 Dose: 1 applic Ondansetron HCl (Zofran Inj) 4 mg IVP Q4H PRN PRN Reason: Nausea/Vomiting Pantoprazole Sodium (Protonix Inj) 40 mg IVP DAILY [facility] Last Admin: 02/08/17 10:53 Dose: 40 mg Petrolatum (Desitin Maximum Strength Topical 40% Oint) 0 gm TOP Q4H PRN PRN Reason: Rash Vancomycin HCl (Vancocin 25 Mg/Ml (Oral Use)) 500 mg PO QID [facility] PRN Reason: Protocol Last Admin: 02/08/17 14:31 Dose: 500 mg - Labs Labs: 02/08/17 06:20 02/08/17 06:20 PT 14.3 Seconds (9.9-11.8) H 02/04/17 11:50 INR 1.32 (0.93-1.08) H 02/04/17 11:50 APTT 35.9 Seconds (23.7-30.8) H 02/04/17 11:50 Attending/Attestation - Attestation I have personally seen and examined this patient.: Yes I have fully participated in the care of the patient.: Yes I have reviewed all pertinent clinical information, including history, physical exam and plan: Yes Notes (Text): 02/08/17 17:15 Medical record note made by the resident after discussion with my direction and input after the patient was personally seen and examined by me. I have reviewed the chart and agree that the record accurately reflects by personal performance of the history, physical exam, data review, and medical decision-making, in the course for the patient. I have also personally directed the plan of care.
[2017-02-05] MEDS: Cholestyramine 4 gm/Pkt UD PO SCH (19:49)
--- NOTE | 2017-02-06 01:40 | CP.PCM.PN ---
Subjective - Date & Time of Evaluation Date of Evaluation: 02/06/17 Time of Evaluation: 01:37 - Subjective Subjective: S:Patient was seen at bedside. He asked for benadryl for sleep . States that he sometimes takes benadryl for sleep. Has no other complaints. Denies chest pain, sob, headache. Pertinent medical record was reviewed. O: Last Vital Signs 3 Temp 98 F 02/05/17 17:26 Pulse 64 02/05/17 17:26 Resp 18 02/05/17 17:26 BP 129/54 L 02/05/17 17:26 Pulse Ox 98 02/05/17 17:26 Awake, alert, not in distress. LUNGS:Normal breathing pattern. NEURO: Speech normal. A:Adjustment insomnia. P:Benadryl 50 mg PO x 1. Objective - Vital Signs/Intake and Output Vital Signs (last 24 hours): Temp Pulse Resp BP Pulse Ox 98 F 64 18 129/54 L 98 02/05/17 17:26 02/05/17 17:26 02/05/17 17:26 02/05/17 17:26 02/05/17 17:26 Intake and Output: 02/05/17 02/06/17 18:59 06:59 Intake Total 480 Balance 480 - Medications Medications: Current Medications Acetaminophen (Tylenol 650mg/20.3ml Solution Ud) 650 mg PO Q4H PRN PRN Reason: Pain, moderate (4-7) Last Admin: 02/05/17 23:31 Dose: 650 mg Al Hydrox/Mg Hydrox/Simethicone (Maalox Plus 30 Ml) 30 ml PO DAILY PRN PRN Reason: Indigestion / Heartburn Apixaban (Eliquis) 5 mg PO BID [facility] PRN Reason: Protocol Last Admin: 02/05/17 18:29 Dose: 5 mg Aspirin (Aspirin Chewable) 81 mg PO DAILY [facility] Last Admin: 02/05/17 09:41 Dose: 81 mg Atorvastatin Calcium (Lipitor) 20 mg PO QPM [facility] Last Admin: 02/05/17 18:28 Dose: 20 mg Cholestyramine Resin (Questran) 4 gm PO AC [facility] Last Admin: 02/05/17 19:49 Dose: 4 gm Hydralazine HCl (Apresoline) 10 mg IVP Q6 PRN PRN Reason: Systolic Blood Pressure Hydrochlorothiazide (Microzide) 12.5 mg PO DAILY [facility] Last Admin: 02/05/17 09:41 Dose: 12.5 mg Sodium Chloride (Sodium Chloride 0.9%) 1,000 mls @ 100 mls/hr IV .Q10H [facility] Last Admin: 02/05/17 22:21 Dose: 100 mls/hr Metronidazole (Flagyl) 250 mg in 50 mls @ 100 mls/hr IVPB Q8 [facility] PRN Reason: Protocol Stop: 02/09/17 22:01 Last Admin: 02/05/17 22:19 Dose: 100 mls/hr Lactobacillus Acidophilus (Bacid Acidophilus) 1 cap PO TID [facility] Last Admin: 02/05/17 18:28 Dose: 1 cap Losartan Potassium (Cozaar) 100 mg PO DAILY [facility] Last Admin: 02/05/17 09:41 Dose: 100 mg Morphine Sulfate (Morphine) 2 mg IVP Q6H PRN PRN Reason: Pain, severe (8-10) Mupirocin (Bactroban Ointment) 0 gm TOP DAILY [facility] Last Admin: 02/05/17 14:57 Dose: 1 applic Ondansetron HCl (Zofran Inj) 4 mg IVP Q4H PRN PRN Reason: Nausea/Vomiting Pantoprazole Sodium (Protonix Inj) 40 mg IVP DAILY [facility] Last Admin: 02/05/17 09:41 Dose: 40 mg Vancomycin HCl (Vancocin 25 Mg/Ml (Oral Use)) 250 mg PO QID [facility] PRN Reason: Protocol Last Admin: 02/05/17 23:33 Dose: 250 mg - Labs Labs: PT 14.3 Seconds (9.9-11.8) H 02/04/17 11:50 INR 1.32 (0.93-1.08) H 02/04/17 11:50 APTT 35.9 Seconds (23.7-30.8) H 02/04/17 11:50
[2017-02-06] MEDS: metroNIDAZOLE IV 250mg/50 ml 250 MG/50 ML BAG IVPB SCH ×3 (05:31→22:20)
[2017-02-06 07:28] LABS: BASO # 0.01 K/mm3 (0.0-2.0); BASO % 0.2 % (0.0-3.0); EOS # 0.3 (0.0-0.7); EOS % 7.5 % (1.5-5.0); GRAN # 1.51 (1.4-6.5); GRAN % 33.3 % (50.0-68.0); LYMPH # 2.3 (1.2-3.4); LYMPH % 50.2 % (22.0-35.0); MEAN CORPUSCULAR HEMOGLOBIN 30.8 pg (25.0-35.0); MEAN CORPUSCULAR HGB CONC 33.8 g/dl (31.0-37.0); MEAN PLATELET VOLUME 10.3 fl (7.0-11.0); MONO # 0.4 (0.1-0.6); MONO % 8.8 % (1.0-6.0); PLATELET COUNT 238 10^3/uL (120.0-450.0); RBC 3.57 10^6/uL (3.5-6.1); RED CELL DISTRIBUTION WIDTH 15.1 % (11.5-14.5); WHITE BLOOD COUNT 4.5 10^3/ul (4.5-11.0)
[2017-02-06 07:45] LABS: ALB/GLOB RATIO 0.9 (1.1-1.8); ALBUMIN 2.7 g/dL (3.0-4.8); ALT/SGPT 43 U/L (7-56); AST/SGOT 29 U/L (15-59); BLOOD UREA NITROGEN 26 mg/dL (7-21); CALCIUM 8.4 mg/dL (8.4-10.5); GFR AFRICAN-AMERICAN > 60; GFR NON-AFRICAN AMERICAN > 60
[2017-02-06] MEDS: Lactobacillus Acidophilus 500 MU Cap PO SCH ×4 (09:15→18:47)
[2017-02-06] MEDS: Cholestyramine 4 gm/Pkt UD PO SCH ×3 (09:16→16:46)
[2017-02-06] MEDS: Vancomycin 25 MG/ML PO SCH ×4 (09:17→18:46)
[2017-02-06] MEDS: Acetaminophen 650mg/20.3ml solution UD PO PRN ×2 (12:15→21:45)
--- NOTE | 2017-02-06 13:11 | CP.PCM.PN ---
Subjective - Date & Time of Evaluation Date of Evaluation: 02/06/17 Time of Evaluation: 13:00 - Subjective Subjective: Patient feels better; diarrhea is less. Stool C. diff Ag positve. Less abdominal cramps Afebrile; VSS HEENT- oral mucosa moist Neck: supple Lungs:clear Cor:RRR Abdomen: soft non-tender Ext : no edema WBC 4.5 HB11.0 K 3.3 BUN:26 Cr:1.0 Imp: 76 yo male s/P multiple surgeries for large ischio-rectal abscess readmitted with profuse diarrhea and dehydration. Stool positive for C. Diff Ag Rec Vanco 500mg po QID; continue Questran, probiotics. Objective - Vital Signs/Intake and Output Vital Signs (last 24 hours): Temp Pulse Resp BP Pulse Ox 97.9 F 77 18 146/80 92 L 02/06/17 08:25 02/06/17 08:25 02/06/17 08:25 02/06/17 08:25 02/06/17 08:25 Intake and Output: 02/06/17 02/06/17 06:59 18:59 Intake Total 3000 Output Total 550 Balance 2450 - Medications Medications: Current Medications Acetaminophen (Tylenol 650mg/20.3ml Solution Ud) 650 mg PO Q4H PRN PRN Reason: Pain, moderate (4-7) Last Admin: 02/06/17 12:15 Dose: 650 mg Al Hydrox/Mg Hydrox/Simethicone (Maalox Plus 30 Ml) 30 ml PO DAILY PRN PRN Reason: Indigestion / Heartburn Apixaban (Eliquis) 5 mg PO BID [facility] PRN Reason: Protocol Last Admin: 02/06/17 09:16 Dose: 5 mg Aspirin (Aspirin Chewable) 81 mg PO DAILY [facility] Last Admin: 02/06/17 09:17 Dose: 81 mg Atorvastatin Calcium (Lipitor) 20 mg PO QPM [facility] Last Admin: 02/05/17 18:28 Dose: 20 mg Cholestyramine Resin (Questran) 4 gm PO AC [facility] Last Admin: 02/06/17 09:16 Dose: 4 gm Hydralazine HCl (Apresoline) 10 mg IVP Q6 PRN PRN Reason: Systolic Blood Pressure Hydrochlorothiazide (Microzide) 12.5 mg PO DAILY [facility] Last Admin: 02/06/17 12:24 Dose: 12.5 mg Sodium Chloride (Sodium Chloride 0.9%) 1,000 mls @ 100 mls/hr IV .Q10H [facility] Last Admin: 02/05/17 22:21 Dose: 100 mls/hr Metronidazole (Flagyl) 250 mg in 50 mls @ 100 mls/hr IVPB Q8 [facility] PRN Reason: Protocol Stop: 02/09/17 22:01 Last Admin: 02/06/17 05:31 Dose: 100 mls/hr Lactobacillus Acidophilus (Bacid Acidophilus) 1 cap PO TID [facility] Last Admin: 02/06/17 09:15 Dose: 1 cap Losartan Potassium (Cozaar) 100 mg PO DAILY [facility] Last Admin: 02/06/17 09:18 Dose: 100 mg Morphine Sulfate (Morphine) 2 mg IVP Q6H PRN PRN Reason: Pain, severe (8-10) Mupirocin (Bactroban Ointment) 0 gm TOP DAILY [facility] Last Admin: 02/05/17 14:57 Dose: 1 applic Ondansetron HCl (Zofran Inj) 4 mg IVP Q4H PRN PRN Reason: Nausea/Vomiting Pantoprazole Sodium (Protonix Inj) 40 mg IVP DAILY [facility] Last Admin: 02/06/17 09:18 Dose: 40 mg Vancomycin HCl (Vancocin 25 Mg/Ml (Oral Use)) 250 mg PO QID [facility] PRN Reason: Protocol Last Admin: 02/06/17 09:17 Dose: 250 mg - Labs Labs: 02/06/17 07:10 02/06/17 07:10 PT 14.3 Seconds (9.9-11.8) H 02/04/17 11:50 INR 1.32 (0.93-1.08) H 02/04/17 11:50 APTT 35.9 Seconds (23.7-30.8) H 02/04/17 11:50
--- NOTE | 2017-02-06 13:14 | CP.PCM.CON ---
History of Present Illness - History of Present Illness History of Present Illness: Arias Lim D.O. PGY-1, General Surgery Consultation Note: Dr. Loren Montenegro. 76 year old male who was recently admitted to the hospital with perirectal abscess s/p I&D POD#22, s/p wound vac now removed, who presents back after having explosive diarrhea shortly after having been discharged. Patient relates how as soon as he got home from the hospital he had some issues with loose stools which then progressively got worse and he had to return. Patient relates having a bowel movement every 1-2 hours which was liquid brown. Patient states that at this time is does have some abdominal discomfort and continued diarrhea but that it has decreased with medication. No other complaints elicited. His dressings have been changed by nursing every time after he has diarrhea. Review of Systems - Review of Systems All systems: reviewed and no additional remarkable complaints except - Gastrointestinal Gastrointestinal: Abdominal Pain, Bloating, Diarrhea Past Patient History - Tetanus Immunizations Tetanus Immunization: Unknown - Past Medical History & Family History Past Medical History?: Yes - Past Social History Smoking Status: Former Smoker - CARDIAC Hx Cardiac Disorders: Yes Hx Hypertension: Yes - PULMONARY Hx Respiratory Disorders: No - NEUROLOGICAL Hx Neurological Disorder: No - HEENT Hx HEENT Problems: Yes - RENAL Hx Chronic Kidney Disease: Yes Other/Comment: renal stent 2013 - ENDOCRINE/METABOLIC Hx Endocrine Disorders: No - HEMATOLOGICAL/ONCOLOGICAL Hx Blood Disorders: No - INTEGUMENTARY Hx Dermatological Problems: Yes Other/Comment: POORLY HEALING SURGICAL WOUND TO BUTOCK - MUSCULOSKELETAL/RHEUMATOLOGICAL Hx Falls: Yes - GASTROINTESTINAL Hx Gastrointestinal Disorders: No - GENITOURINARY/GYNECOLOGICAL Hx Genitourinary Disorders: Yes Hx Prostate Problems: Yes - PSYCHIATRIC Hx Psychophysiologic Disorder: No Hx Emotional Abuse: No Hx Physical Abuse: No Hx Substance Use: No - SURGICAL HISTORY Hx Coronary Stent: Yes Other/Comment: PROSTATE, PICC, RECTAL ABSCESS, BACK SURGERY, RENAL ARTERY STENT - ANESTHESIA Hx Anesthesia: Yes Meds Allergies/Adverse Reactions: Allergies Allergy/AdvReac Type Severity Reaction Status Date / Time No Known Allergies Allergy Verified 02/04/17 11:08 - Medications Medications: Current Medications Acetaminophen (Tylenol 650mg/20.3ml Solution Ud) 650 mg PO Q4H PRN PRN Reason: Pain, moderate (4-7) Last Admin: 02/06/17 12:15 Dose: 650 mg Al Hydrox/Mg Hydrox/Simethicone (Maalox Plus 30 Ml) 30 ml PO DAILY PRN PRN Reason: Indigestion / Heartburn Apixaban (Eliquis) 5 mg PO BID [facility] PRN Reason: Protocol Last Admin: 02/06/17 09:16 Dose: 5 mg Aspirin (Aspirin Chewable) 81 mg PO DAILY [facility] Last Admin: 02/06/17 09:17 Dose: 81 mg Atorvastatin Calcium (Lipitor) 20 mg PO QPM [facility] Last Admin: 02/05/17 18:28 Dose: 20 mg Cholestyramine Resin (Questran) 4 gm PO AC [facility] Last Admin: 02/06/17 09:16 Dose: 4 gm Hydralazine HCl (Apresoline) 10 mg IVP Q6 PRN PRN Reason: Systolic Blood Pressure Hydrochlorothiazide (Microzide) 12.5 mg PO DAILY [facility] Last Admin: 02/06/17 12:24 Dose: 12.5 mg Sodium Chloride (Sodium Chloride 0.9%) 1,000 mls @ 100 mls/hr IV .Q10H [facility] Last Admin: 02/05/17 22:21 Dose: 100 mls/hr Metronidazole (Flagyl) 250 mg in 50 mls @ 100 mls/hr IVPB Q8 [facility] PRN Reason: Protocol Stop: 02/09/17 22:01 Last Admin: 02/06/17 05:31 Dose: 100 mls/hr Lactobacillus Acidophilus (Bacid Acidophilus) 1 cap PO TID [facility] Last Admin: 02/06/17 09:15 Dose: 1 cap Losartan Potassium (Cozaar) 100 mg PO DAILY [facility] Last Admin: 02/06/17 09:18 Dose: 100 mg Morphine Sulfate (Morphine) 2 mg IVP Q6H PRN PRN Reason: Pain, severe (8-10) Mupirocin (Bactroban Ointment) 0 gm TOP DAILY [facility] Last Admin: 02/05/17 14:57 Dose: 1 applic Ondansetron HCl (Zofran Inj) 4 mg IVP Q4H PRN PRN Reason: Nausea/Vomiting Pantoprazole Sodium (Protonix Inj) 40 mg IVP DAILY [facility] Last Admin: 02/06/17 09:18 Dose: 40 mg Vancomycin HCl (Vancocin 25 Mg/Ml (Oral Use)) 250 mg PO QID [facility] PRN Reason: Protocol Last Admin: 02/06/17 09:17 Dose: 250 mg Physical Exam - Constitutional Appears: Well, Non-toxic, No Acute Distress - Head Exam Head Exam: ATRAUMATIC, NORMOCEPHALIC - Eye Exam Eye Exam: EOMI, Normal appearance - ENT Exam ENT Exam: Mucous Membranes Moist - Respiratory Exam Respiratory Exam: absent: Accessory Muscle Use, Respiratory Distress - GI/Abdominal Exam GI & Abdominal Exam: Distended (mildly), Hyperactive Bowel Sounds, Soft, Tenderness (mild diffusely and lower abdomen). absent: Guarding - Rectal Exam Additional comments: left perirectal abscess location improved, some stitches left in place, erythema of surrounding skin edges, appears relatively unchanged since discharged - Extremities Exam Extremities exam: Negative for: calf tenderness - Neurological Exam Neurological exam: Alert, Oriented x3 - Skin Skin Exam: Dry, Warm Results - Vital Signs Recent Vital Signs: Last Vital Signs Temp 97.9 F 02/06/17 08:25 Pulse 77 02/06/17 08:25 Resp 18 02/06/17 08:25 BP 146/80 02/06/17 08:25 Pulse Ox 92 L 02/06/17 08:25 - Labs Result Diagrams: 02/06/17 07:10 02/06/17 07:10 Labs: Laboratory Results - last 24 hr 02/06/17 02/06/17 07:10 07:10 WBC 4.5 D RBC 3.57 Hgb 11.0 L Hct 32.5 L MCV 91.0 MCH 30.8 MCHC 33.8 RDW 15.1 H Plt Count 238 MPV 10.3 Gran % 33.3 L Lymph % (Auto) 50.2 H [place] % (Auto) 8.8 H Eos % (Auto) 7.5 H Baso % (Auto) 0.2 Gran # 1.51 Lymph # 2.3 [place] # 0.4 Eos # 0.3 Baso # 0.01 Sodium 139 Potassium 3.3 L Chloride 110 H Carbon Dioxide 23 Anion Gap 9 L BUN 26 H Creatinine 1.0 Est GFR ( Amer) > 60 Est GFR (Non-Af Amer) > 60 Random Glucose 96 Calcium 8.4 Total Bilirubin 0.4 AST 29 ALT 43 Alkaline Phosphatase 50 Total Protein 5.8 Albumin 2.7 L Globulin 3.1 Albumin/Globulin Ratio 0.9 L Assessment & Plan - Assessment and Plan (Free Text) Assessment: 76 year old male who was recently admitted to the hospital with perirectal abscess s/p I&D POD#22, s/p wound vac now removed, who presents back after having explosive diarrhea shortly after having been discharged. Plan: Cont wound care/dressing changes while admitted Patient MUST clean the zaira-rectal area with sterile saline and wipe dry after every bowel movement to maintain a proper healing environment GI seeing for C. Diff, on PO vanc No other surgical intervention necessary at this time Will discuss with attending physician. Thank you for the pleasure of participating in the care of this interesting patient. - Date & Time Date: 02/06/17 Time: 13:00
--- NOTE | 2017-02-06 13:50 | CP.PCM.PN ---
<Pablito Barrera - Last Filed: 02/06/17 13:43> Subjective - Date & Time of Evaluation Date of Evaluation: 02/06/17 Time of Evaluation: 07:00 - Subjective Subjective: Internal Medicine Progress Note for Dr. Orantes/Dr. Sharpe service Patient seen and examined at bedside. Today is hospital 3. No acute events overnight. Today, complains of persisting abdominal pain and LE pain, but both are improved compared to yesterday. Denies chest pain, shortness of breath, nausea/emesis, hematochezia/melena, or dysuria/hematuria. Objective - Vital Signs/Intake and Output Vital Signs (last 24 hours): Temp Pulse Resp BP Pulse Ox 97.9 F 77 18 146/80 92 L 02/06/17 08:25 02/06/17 08:25 02/06/17 08:25 02/06/17 08:25 02/06/17 08:25 Intake and Output: 02/06/17 02/06/17 06:59 18:59 Intake Total 3000 Output Total 550 Balance 2450 - Medications Medications: Current Medications Acetaminophen (Tylenol 650mg/20.3ml Solution Ud) 650 mg PO Q4H PRN PRN Reason: Pain, moderate (4-7) Last Admin: 02/06/17 12:15 Dose: 650 mg Al Hydrox/Mg Hydrox/Simethicone (Maalox Plus 30 Ml) 30 ml PO DAILY PRN PRN Reason: Indigestion / Heartburn Apixaban (Eliquis) 5 mg PO BID [facility] PRN Reason: Protocol Last Admin: 02/06/17 09:16 Dose: 5 mg Aspirin (Aspirin Chewable) 81 mg PO DAILY [facility] Last Admin: 02/06/17 09:17 Dose: 81 mg Atorvastatin Calcium (Lipitor) 20 mg PO QPM [facility] Last Admin: 02/05/17 18:28 Dose: 20 mg Cholestyramine Resin (Questran) 4 gm PO AC [facility] Last Admin: 02/06/17 09:16 Dose: 4 gm Hydralazine HCl (Apresoline) 10 mg IVP Q6 PRN PRN Reason: Systolic Blood Pressure Hydrochlorothiazide (Microzide) 12.5 mg PO DAILY [facility] Last Admin: 02/06/17 12:24 Dose: 12.5 mg Sodium Chloride (Sodium Chloride 0.9%) 1,000 mls @ 100 mls/hr IV .Q10H [facility] Last Admin: 02/05/17 22:21 Dose: 100 mls/hr Metronidazole (Flagyl) 250 mg in 50 mls @ 100 mls/hr IVPB Q8 [facility] PRN Reason: Protocol Stop: 02/09/17 22:01 Last Admin: 02/06/17 05:31 Dose: 100 mls/hr Lactobacillus Acidophilus (Bacid Acidophilus) 1 cap PO TID [facility] Last Admin: 02/06/17 09:15 Dose: 1 cap Losartan Potassium (Cozaar) 100 mg PO DAILY [facility] Last Admin: 02/06/17 09:18 Dose: 100 mg Morphine Sulfate (Morphine) 2 mg IVP Q6H PRN PRN Reason: Pain, severe (8-10) Mupirocin (Bactroban Ointment) 0 gm TOP DAILY [facility] Last Admin: 02/05/17 14:57 Dose: 1 applic Ondansetron HCl (Zofran Inj) 4 mg IVP Q4H PRN PRN Reason: Nausea/Vomiting Pantoprazole Sodium (Protonix Inj) 40 mg IVP DAILY [facility] Last Admin: 02/06/17 09:18 Dose: 40 mg Vancomycin HCl (Vancocin 25 Mg/Ml (Oral Use)) 500 mg PO QID [facility] PRN Reason: Protocol - Labs Labs: 02/06/17 07:10 02/06/17 07:10 PT 14.3 Seconds (9.9-11.8) H 02/04/17 11:50 INR 1.32 (0.93-1.08) H 02/04/17 11:50 APTT 35.9 Seconds (23.7-30.8) H 02/04/17 11:50 - Additional Findings Additional findings: - Constitutional Appears: Non-toxic, Mild-distress 2/2 bilateral leg pain (L>R) and abdominal pain - Head Exam Head Exam: ATRAUMATIC, NORMAL INSPECTION, NORMOCEPHALIC - Eye Exam Eye Exam: EOMI, Normal appearance. absent: Conjunctival injection, Scleral icterus Pupil Exam: absent: Irregular, Unequal - ENT Exam ENT Exam: Mucous Membranes Moist - Neck Exam Neck Exam: Full ROM. absent: Tenderness, JVD - Respiratory Exam Respiratory Exam: Clear to Ausculation Bilateral, NORMAL BREATHING PATTERN. absent: Accessory Muscle Use, Chest Wall Tenderness, Decreased Breath Sounds, Rales, Rhonchi, Wheezes - Cardiovascular Exam Cardiovascular Exam: REGULAR RHYTHM, RRR, +S1, +S2. absent: Bradycardia, Tachycardia, Irregular Rhythm, +S4 - GI/Abdominal Exam GI & Abdominal Exam: Soft, Normal Bowel Sounds, Diffuse tenderness to palpation (most prominent along epigastric and LLQ regions, decreased compared to yesterday). absent: Distended, Firm, Rigid - Extremities Exam Extremities Exam: Tenderness along lateral upper thighs (L>R), No edema/erythema /temperature abnormalities on palpation bilaterally, +1 dorsalis pedis and +2 radial pulses bilaterally - Back Exam Back Exam: Healing posterior wound along buttocks with some serosanguinous fluid leakage, no surrounding erythema/edema. 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 He is being treated for C. Diff, likely C. diff colitis. Plan: 1) C. Diff with likely C. Diff colitis -CT abd demonstrated rectosigmoid colitis, C. Diff antigen positive -continue PO vanco and flagyl -stool cultures, ova/parasites pending; fecal leukocytes negative -GI (Dr. Mota) consulted, appreciate all recs; recs PO vanco, questran, and probiotics -IVF, heart-healthy diet as tolerated -monitor and replete electrolytes as needed -difficulty tolerating diet, encouraging PO fluids intake, will continue to reassess as undergoing treatment 2) DENISE -prerenal, likely dehydration 2/2 colitis/diarrhea -IVF, monitor and replete electrolytes as needed -continue to monitor renal fcn 3) Perirectal abscess -Patient is s/p incision & drainage followed by debridement and further debridement, as per Surgical team -Blood and urine cultures have remain negative on previous admission -Continue with wound care, minimal packing required -scheduled for outpatient followup with Surgery two weeks from most recent discharge -Afebrile, no leukocytosis -Surgery consulted, appreciate all recs; keep site clean, clean after each episode of diarrhea, no acute intervention required 4) Bilateral DVT -continue therapeutic AC with eliquis -leg pain improving as per patient -H/H stable, continue to monitor 5) CAD w/ stents -continue ASA, hctz and cozaar 6) HLD -continue lipitor Dispo: Med/Surg, on abx regimen for C. Diff, IVF to maintain appropriate hydration, pending regularly tolerating diet FEN: Heart-healthy diet, NS 100cc/hr Access: Peripheral IV Consults: GI Ppx: protonix for GI, Eliquis covers for DVT Patient seen, reviewed, and discussed with attending, Dr. Orantes. <Bowen Orantes - Last Filed: 02/22/17 11:31> Objective - Vital Signs/Intake and Output Vital Signs (last 24 hours): Temp Pulse Resp BP Pulse Ox 98 F 64 20 118/60 98 02/12/17 16:00 02/12/17 16:00 02/12/17 16:00 02/12/17 16:00 02/12/17 16:00 - Labs Labs: 02/12/17 07:15 02/12/17 07:15 PT 14.3 Seconds (9.9-11.8) H 02/04/17 11:50 INR 1.32 (0.93-1.08) H 02/04/17 11:50 APTT 35.9 Seconds (23.7-30.8) H 02/04/17 11:50 Attending/Attestation - Attestation I have personally seen and examined this patient.: Yes I have fully participated in the care of the patient.: Yes I have reviewed all pertinent clinical information, including history, physical exam and plan: Yes Notes (Text): 02/22/17 11:31 Medical record note made by resident after discussion with my direction and input after patient personally seen and examined by me. I have reviewed the chart and agree that the record accurately reflects my personal performance of the history, physical, data review and medical decision making for the course of this patient.
[2017-02-06] MEDS: Sodium Chloride 0.9% 1,000 ML IV SCH ×2 (16:46→23:31)
[2017-02-06] MEDS ORDERED: Zinc Oxide Topical 40% Oint (Desitin) TOP PRN (19:00)
--- NOTE | 2017-02-07 00:51 | CP.PCM.PN ---
Subjective - Date & Time of Evaluation Date of Evaluation: 02/07/17 Time of Evaluation: 00:49 - Subjective Subjective: S:It was requested to cosign order for benadryl which was apparently ordered as a hypnotic. Went to see patient. He is asleep. Medical record was reviewed. O: Last Vital Signs 3 Temp 97.3 F L 02/06/17 16:00 Pulse 65 02/06/17 16:00 Resp 20 02/06/17 16:00 BP 126/69 02/06/17 16:00 Pulse Ox 96 02/06/17 16:00 Asleep. LUNGS: Normal breathing pattern. A:Adjustment insomnia. P:Benadryl as ordered. Objective - Vital Signs/Intake and Output Vital Signs (last 24 hours): Temp Pulse Resp BP Pulse Ox 97.3 F L 65 20 126/69 96 02/06/17 16:00 02/06/17 16:00 02/06/17 16:00 02/06/17 16:00 02/06/17 16:00 Intake and Output: 02/06/17 02/07/17 18:59 06:59 Intake Total 600 600 Output Total 400 500 Balance 200 100 - Medications Medications: Current Medications Acetaminophen (Tylenol 650mg/20.3ml Solution Ud) 650 mg PO Q4H PRN PRN Reason: Pain, moderate (4-7) Last Admin: 02/06/17 21:45 Dose: 650 mg Al Hydrox/Mg Hydrox/Simethicone (Maalox Plus 30 Ml) 30 ml PO DAILY PRN PRN Reason: Indigestion / Heartburn Apixaban (Eliquis) 5 mg PO BID [facility] PRN Reason: Protocol Last Admin: 02/06/17 18:46 Dose: Not Given Aspirin (Aspirin Chewable) 81 mg PO DAILY [facility] Last Admin: 02/06/17 09:17 Dose: 81 mg Atorvastatin Calcium (Lipitor) 20 mg PO QPM [facility] Last Admin: 02/06/17 18:46 Dose: Not Given Cholestyramine Resin (Questran) 4 gm PO AC [facility] Last Admin: 02/06/17 16:46 Dose: 4 gm Diphenhydramine HCl (Benadryl) 50 mg PO HS PRN PRN Reason: Insomnia Last Admin: 02/06/17 22:21 Dose: 50 mg Hydralazine HCl (Apresoline) 10 mg IVP Q6 PRN PRN Reason: Systolic Blood Pressure Hydrochlorothiazide (Microzide) 12.5 mg PO DAILY [facility] Last Admin: 02/06/17 12:24 Dose: 12.5 mg Sodium Chloride (Sodium Chloride 0.9%) 1,000 mls @ 100 mls/hr IV .Q10H [facility] Last Admin: 02/06/17 23:31 Dose: 100 mls/hr Metronidazole (Flagyl) 250 mg in 50 mls @ 100 mls/hr IVPB Q8 [facility] PRN Reason: Protocol Stop: 02/09/17 22:01 Last Admin: 02/06/17 22:20 Dose: 100 mls/hr Lactobacillus Acidophilus (Bacid Acidophilus) 1 cap PO TID [facility] Last Admin: 02/06/17 18:47 Dose: Not Given Losartan Potassium (Cozaar) 100 mg PO DAILY [facility] Last Admin: 02/06/17 09:18 Dose: 100 mg Morphine Sulfate (Morphine) 2 mg IVP Q6H PRN PRN Reason: Pain, severe (8-10) Mupirocin (Bactroban Ointment) 0 gm TOP DAILY [facility] Last Admin: 02/06/17 14:10 Dose: 1 applic Ondansetron HCl (Zofran Inj) 4 mg IVP Q4H PRN PRN Reason: Nausea/Vomiting Pantoprazole Sodium (Protonix Inj) 40 mg IVP DAILY [facility] Last Admin: 02/06/17 09:18 Dose: 40 mg Petrolatum (Desitin Maximum Strength Topical 40% Oint) 0 gm TOP Q4H PRN PRN Reason: Rash Vancomycin HCl (Vancocin 25 Mg/Ml (Oral Use)) 500 mg PO QID [facility] PRN Reason: Protocol Last Admin: 02/06/17 18:46 Dose: Not Given - Labs Labs: 02/06/17 07:10 02/06/17 07:10 PT 14.3 Seconds (9.9-11.8) H 02/04/17 11:50 INR 1.32 (0.93-1.08) H 02/04/17 11:50 APTT 35.9 Seconds (23.7-30.8) H 02/04/17 11:50
[2017-02-07] MEDS: metroNIDAZOLE IV 250mg/50 ml 250 MG/50 ML BAG IVPB SCH ×3 (05:36→21:51)
[2017-02-07 07:26] LABS: BASO # 0.02 K/mm3 (0.0-2.0); BASO % 0.3 % (0.0-3.0); EOS # 0.6 (0.0-0.7); GRAN # 2.45 (1.4-6.5); GRAN % 40.4 % (50.0-68.0); HEMOGLOBIN 10.8 gm/dL (14.0-18.0); LYMPH # 2.6 (1.2-3.4); LYMPH % 43.1 % (22.0-35.0); MEAN CELL VOLUME 90.4 fL (80.0-105.0); MEAN CORPUSCULAR HEMOGLOBIN 30.5 pg (25.0-35.0); MEAN CORPUSCULAR HGB CONC 33.8 g/dl (31.0-37.0); MEAN PLATELET VOLUME 10.6 fl (7.0-11.0); MONO # 0.4 (0.1-0.6); MONO % 7.2 % (1.0-6.0); PLATELET COUNT 260 10^3/uL (120.0-450.0); RBC 3.54 10^6/uL (3.5-6.1); RED CELL DISTRIBUTION WIDTH 14.7 % (11.5-14.5); WHITE BLOOD COUNT 6.1 10^3/ul (4.5-11.0)
[2017-02-07 07:35] LABS: ALB/GLOB RATIO 0.9 (1.1-1.8); ALBUMIN 2.7 g/dL (3.0-4.8); ALT/SGPT 42 U/L (7-56); AST/SGOT 38 U/L (15-59); BLOOD UREA NITROGEN 16 mg/dL (7-21); CALCIUM 8.6 mg/dL (8.4-10.5); GFR AFRICAN-AMERICAN > 60; GFR NON-AFRICAN AMERICAN > 60
[2017-02-07] MEDS: Cholestyramine 4 gm/Pkt UD PO SCH ×3 (08:07→16:12)
[2017-02-07] MEDS: Lactobacillus Acidophilus 500 MU Cap PO SCH ×4 (08:10→17:37)
--- NOTE | 2017-02-07 10:00 | CP.PCM.PN ---
<Pablito Barrera - Last Filed: 02/07/17 13:56> Subjective - Date & Time of Evaluation Date of Evaluation: 02/07/17 Time of Evaluation: 07:05 - Subjective Subjective: Internal Medicine Progress Note for Dr. Orantes/Dr. Sharpe service Patient seen and examined at bedside. Today is hospital 4. No acute events overnight. Persisting abdominal pain, diarrhea, and LE pain, but all improving. Still poor PO intake due to "everything is going right through me," but is tolerating PO fluids. Denies chest pain, shortness of breath, nausea/ emesis, hematochezia/melena, or dysuria/hematuria. Objective - Vital Signs/Intake and Output Vital Signs (last 24 hours): Temp Pulse Resp BP Pulse Ox 98 F 61 20 134/68 98 02/07/17 09:02 02/07/17 09:02 02/07/17 09:02 02/07/17 09:02 02/07/17 09:02 Intake and Output: 02/07/17 02/07/17 06:59 18:59 Intake Total 3240 Output Total 900 Balance 2340 - Medications Medications: Current Medications Acetaminophen (Tylenol 650mg/20.3ml Solution Ud) 650 mg PO Q4H PRN PRN Reason: Pain, moderate (4-7) Last Admin: 02/06/17 21:45 Dose: 650 mg Apixaban (Eliquis) 5 mg PO BID [facility] PRN Reason: Protocol Last Admin: 02/07/17 08:10 Dose: 5 mg Aspirin (Aspirin Chewable) 81 mg PO DAILY [facility] Last Admin: 02/07/17 08:10 Dose: 81 mg Atorvastatin Calcium (Lipitor) 20 mg PO QPM [facility] Last Admin: 02/06/17 18:46 Dose: Not Given Cholestyramine Resin (Questran) 4 gm PO AC [facility] Last Admin: 02/07/17 08:07 Dose: 4 gm Diphenhydramine HCl (Benadryl) 50 mg PO HS PRN PRN Reason: Insomnia Last Admin: 02/06/17 22:21 Dose: 50 mg Hydralazine HCl (Apresoline) 10 mg IVP Q6 PRN PRN Reason: Systolic Blood Pressure Hydrochlorothiazide (Microzide) 12.5 mg PO DAILY [facility] Last Admin: 02/07/17 08:10 Dose: 12.5 mg Sodium Chloride (Sodium Chloride 0.9%) 1,000 mls @ 100 mls/hr IV .Q10H [facility] Last Admin: 02/06/17 23:31 Dose: 100 mls/hr Metronidazole (Flagyl) 250 mg in 50 mls @ 100 mls/hr IVPB Q8 [facility] PRN Reason: Protocol Stop: 02/09/17 22:01 Last Admin: 02/07/17 05:36 Dose: 100 mls/hr Lactobacillus Acidophilus (Bacid Acidophilus) 1 cap PO TID [facility] Last Admin: 02/07/17 08:10 Dose: 1 cap Losartan Potassium (Cozaar) 100 mg PO DAILY [facility] Last Admin: 02/07/17 08:10 Dose: 100 mg Morphine Sulfate (Morphine) 2 mg IVP Q6H PRN PRN Reason: Pain, severe (8-10) Mupirocin (Bactroban Ointment) 0 gm TOP DAILY [facility] Last Admin: 02/06/17 14:10 Dose: 1 applic Ondansetron HCl (Zofran Inj) 4 mg IVP Q4H PRN PRN Reason: Nausea/Vomiting Pantoprazole Sodium (Protonix Inj) 40 mg IVP DAILY [facility] Last Admin: 02/07/17 08:09 Dose: 40 mg Petrolatum (Desitin Maximum Strength Topical 40% Oint) 0 gm TOP Q4H PRN PRN Reason: Rash Vancomycin HCl (Vancocin 25 Mg/Ml (Oral Use)) 500 mg PO QID [facility] PRN Reason: Protocol Last Admin: 02/06/17 18:46 Dose: Not Given - Labs Labs: 02/07/17 07:00 02/07/17 07:00 PT 14.3 Seconds (9.9-11.8) H 02/04/17 11:50 INR 1.32 (0.93-1.08) H 02/04/17 11:50 APTT 35.9 Seconds (23.7-30.8) H 02/04/17 11:50 - Additional Findings Additional findings: - Constitutional Appears: Non-toxic, Mild-distress 2/2 bilateral leg pain (L>R) and abdominal pain - Head Exam Head Exam: ATRAUMATIC, NORMAL INSPECTION, NORMOCEPHALIC - Eye Exam Eye Exam: EOMI, Normal appearance. absent: Conjunctival injection, Scleral icterus Pupil Exam: absent: Irregular, Unequal - ENT Exam ENT Exam: Mucous Membranes Moist - Neck Exam Neck Exam: Full ROM. absent: Tenderness, JVD - Respiratory Exam Respiratory Exam: Clear to Ausculation Bilateral, NORMAL BREATHING PATTERN. absent: Accessory Muscle Use, Chest Wall Tenderness, Decreased Breath Sounds, Rales, Rhonchi, Wheezes - Cardiovascular Exam Cardiovascular Exam: REGULAR RHYTHM, RRR, +S1, +S2. absent: Bradycardia, Tachycardia, Irregular Rhythm, +S4 - GI/Abdominal Exam GI & Abdominal Exam: Soft, Normal Bowel Sounds, Diffuse tenderness to palpation (most prominent along epigastric and LLQ regions, decreased compared to yesterday). absent: Distended, Firm, Rigid - Extremities Exam Extremities Exam: Tenderness along lateral upper thighs (predominantly on left, minimal tenderness on the right), No edema/erythema/temperature abnormalities on palpation bilaterally, +1 dorsalis pedis and +2 radial pulses bilaterally - Back Exam Back Exam: Healing posterior wound along buttocks with some serosanguinous fluid leakage, no surrounding erythema/edema. absent: rash noted - Neurological Exam Neurological Exam: Alert, Awake, Oriented x3 - Psychiatric Exam Psychiatric exam: Normal Affect, Normal Mood - Skin Skin Exam: Dry, Intact, Normal Color, Warm Assessment and Plan - Assessment and Plan (Free Text) Assessment: This is a 76 yo M with PMH of CAD s/p stent placement, prostate cancer s/p robotic reconstruction, GERD, hyperlipidemia, 3rd degree AV block s/ p permanent pacer, dilated cardiomyopathy (latest MUGA scan with LVEF of 60%), and hypertension who represents to [facility] [place] with complaint of profuse watery diarrhea and diffuse abdominal pain. He is being treated for C. Diff colitis. Plan: 1) C. Diff with likely C. Diff colitis -CT abd demonstrated rectosigmoid colitis, C. Diff antigen positive -continue PO vanco and flagyl -stool cultures, ova/parasites pending; fecal leukocytes negative -GI (Dr. Mota) consulted, appreciate all recs; recs PO vanco, questran, and probiotics -IVF, heart-healthy diet as tolerated -monitor and replete electrolytes as needed -difficulty tolerating diet, encouraging PO fluids intake, will continue to reassess as undergoing treatment 2) DENISE: RESOLVED -prerenal, likely dehydration 2/2 colitis/diarrhea -IVF, monitor and replete electrolytes as needed -Cr 0.9 (1.5 on admit) 3) Perirectal abscess -Patient is s/p incision & drainage followed by debridement and further debridement, as per Surgical team -Blood and urine cultures have remain negative on previous admission -Continue with wound care, minimal packing required -scheduled for outpatient followup with Surgery two weeks from most recent discharge -Afebrile, no leukocytosis -Surgery consulted, appreciate all recs; keep site clean, clean after each episode of diarrhea, no acute intervention required 4) Bilateral DVT -continue therapeutic AC with eliquis -leg pain improving as per patient -H/H stable, continue to monitor 5) CAD w/ stents -continue ASA, hctz and cozaar 6) HLD -continue lipitor Dispo: Med/Surg, on abx regimen for C. Diff, IVF to maintain appropriate hydration, pending regularly tolerating diet FEN: Heart-healthy diet, NS 100cc/hr Access: Peripheral IV Consults: GI Ppx: protonix for GI, Eliquis covers for DVT Patient seen, reviewed, and discussed with attending, Dr. Sharpe. <Woody Sharpe - Last Filed: 02/08/17 17:19> Objective - Vital Signs/Intake and Output Vital Signs (last 24 hours): Temp Pulse Resp BP Pulse Ox 98.2 F 60 18 163/72 H 98 02/08/17 07:30 02/08/17 07:30 02/08/17 07:30 02/08/17 07:30 02/08/17 07:30 Intake and Output: 02/08/17 02/08/17 06:59 18:59 Intake Total 2760 720 Output Total 300 700 Balance 2460 20 - Medications Medications: Current Medications Acetaminophen (Tylenol 650mg/20.3ml Solution Ud) 650 mg PO Q4H PRN PRN Reason: Pain, moderate (4-7) Last Admin: 02/08/17 14:30 Dose: 650 mg Apixaban (Eliquis) 5 mg PO BID [facility] PRN Reason: Protocol Last Admin: 02/08/17 10:52 Dose: 5 mg Aspirin (Aspirin Chewable) 81 mg PO DAILY [facility] Last Admin: 02/08/17 10:52 Dose: 81 mg Atorvastatin Calcium (Lipitor) 20 mg PO QPM [facility] Last Admin: 02/07/17 17:37 Dose: 20 mg Cholestyramine Resin (Questran) 4 gm PO AC [facility] Last Admin: 02/08/17 16:33 Dose: 4 gm Diphenhydramine HCl (Benadryl) 50 mg PO HS PRN PRN Reason: Insomnia Last Admin: 02/07/17 23:15 Dose: 50 mg Hydralazine HCl (Apresoline) 10 mg IVP Q6 PRN PRN Reason: Systolic Blood Pressure Hydrochlorothiazide (Microzide) 12.5 mg PO DAILY [facility] Last Admin: 02/08/17 10:53 Dose: 12.5 mg Sodium Chloride (Sodium Chloride 0.9%) 1,000 mls @ 100 mls/hr IV .Q10H [facility] Last Admin: 02/06/17 23:31 Dose: 100 mls/hr Metronidazole (Flagyl) 250 mg in 50 mls @ 100 mls/hr IVPB Q8 [facility] PRN Reason: Protocol Stop: 02/09/17 22:01 Last Admin: 02/08/17 13:27 Dose: 100 mls/hr Lactobacillus Acidophilus (Bacid Acidophilus) 1 cap PO TID [facility] Last Admin: 02/08/17 13:27 Dose: 1 cap Losartan Potassium (Cozaar) 100 mg PO DAILY [facility] Last Admin: 02/08/17 10:53 Dose: 100 mg Mupirocin (Bactroban Ointment) 0 gm TOP DAILY [facility] Last Admin: 02/08/17 10:53 Dose: 1 applic Ondansetron HCl (Zofran Inj) 4 mg IVP Q4H PRN PRN Reason: Nausea/Vomiting Pantoprazole Sodium (Protonix Inj) 40 mg IVP DAILY [facility] Last Admin: 02/08/17 10:53 Dose: 40 mg Petrolatum (Desitin Maximum Strength Topical 40% Oint) 0 gm TOP Q4H PRN PRN Reason: Rash Vancomycin HCl (Vancocin 25 Mg/Ml (Oral Use)) 500 mg PO QID [facility] PRN Reason: Protocol Last Admin: 02/08/17 14:31 Dose: 500 mg - Labs Labs: 02/08/17 06:20 02/08/17 06:20 PT 14.3 Seconds (9.9-11.8) H 02/04/17 11:50 INR 1.32 (0.93-1.08) H 02/04/17 11:50 APTT 35.9 Seconds (23.7-30.8) H 02/04/17 11:50 Attending/Attestation - Attestation I have personally seen and examined this patient.: Yes I have fully participated in the care of the patient.: Yes I have reviewed all pertinent clinical information, including history, physical exam and plan: Yes Notes (Text): 02/08/17 17:19 Medical record note made by the resident after discussion with my direction and input after the patient was personally seen and examined by me. I have reviewed the chart and agree that the record accurately reflects by personal performance of the history, physical exam, data review, and medical decision-making, in the course for the patient. I have also personally directed the plan of care.
--- NOTE | 2017-02-07 10:35 | CP.PCM.PN ---
Subjective - Date & Time of Evaluation Date of Evaluation: 02/07/17 Time of Evaluation: 07:30 - Subjective Subjective: Arias Lim D.O. 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 Patient was seen and examined at bedside with surgical team. Patient states that he continues to have diarrhea and he is currently receiving PO vancomycin for his C. Diff colitis. Patient otherwise has no complaints though and does state that he tries to keep the perirectal area clean and dry and that nursing has been changing his dressing every time that he has a bowel movement. Objective - Vital Signs/Intake and Output Vital Signs (last 24 hours): Temp Pulse Resp BP Pulse Ox 98 F 61 20 134/68 98 02/07/17 09:02 02/07/17 09:02 02/07/17 09:02 02/07/17 09:02 02/07/17 09:02 Intake and Output: 02/07/17 02/07/17 06:59 18:59 Intake Total 3240 Output Total 900 Balance 2340 - Medications Medications: Current Medications Acetaminophen (Tylenol 650mg/20.3ml Solution Ud) 650 mg PO Q4H PRN PRN Reason: Pain, moderate (4-7) Last Admin: 02/06/17 21:45 Dose: 650 mg Apixaban (Eliquis) 5 mg PO BID [facility] PRN Reason: Protocol Last Admin: 02/07/17 08:10 Dose: 5 mg Aspirin (Aspirin Chewable) 81 mg PO DAILY [facility] Last Admin: 02/07/17 08:10 Dose: 81 mg Atorvastatin Calcium (Lipitor) 20 mg PO QPM [facility] Last Admin: 02/06/17 18:46 Dose: Not Given Cholestyramine Resin (Questran) 4 gm PO AC [facility]AN[facility] Last Admin: 02/07/17 08:07 Dose: 4 gm Diphenhydramine HCl (Benadryl) 50 mg PO HS PRN PRN Reason: Insomnia Last Admin: 02/06/17 22:21 Dose: 50 mg Hydralazine HCl (Apresoline) 10 mg IVP Q6 PRN PRN Reason: Systolic Blood Pressure Hydrochlorothiazide (Microzide) 12.5 mg PO DAILY [facility] Last Admin: 02/07/17 08:10 Dose: 12.5 mg Sodium Chloride (Sodium Chloride 0.9%) 1,000 mls @ 100 mls/hr IV .Q10H [facility] Last Admin: 02/06/17 23:31 Dose: 100 mls/hr Metronidazole (Flagyl) 250 mg in 50 mls @ 100 mls/hr IVPB Q8 [facility] PRN Reason: Protocol Stop: 02/09/17 22:01 Last Admin: 02/07/17 05:36 Dose: 100 mls/hr Lactobacillus Acidophilus (Bacid Acidophilus) 1 cap PO TID [facility] Last Admin: 02/07/17 08:10 Dose: 1 cap Losartan Potassium (Cozaar) 100 mg PO DAILY [facility] Last Admin: 02/07/17 08:10 Dose: 100 mg Morphine Sulfate (Morphine) 2 mg IVP Q6H PRN PRN Reason: Pain, severe (8-10) Mupirocin (Bactroban Ointment) 0 gm TOP DAILY [facility] Last Admin: 02/06/17 14:10 Dose: 1 applic Ondansetron HCl (Zofran Inj) 4 mg IVP Q4H PRN PRN Reason: Nausea/Vomiting Pantoprazole Sodium (Protonix Inj) 40 mg IVP DAILY [facility] Last Admin: 02/07/17 08:09 Dose: 40 mg Petrolatum (Desitin Maximum Strength Topical 40% Oint) 0 gm TOP Q4H PRN PRN Reason: Rash Vancomycin HCl (Vancocin 25 Mg/Ml (Oral Use)) 500 mg PO QID [facility] PRN Reason: Protocol Last Admin: 02/06/17 18:46 Dose: Not Given - Labs Labs: 02/07/17 07:00 02/07/17 07:00 PT 14.3 Seconds (9.9-11.8) H 02/04/17 11:50 INR 1.32 (0.93-1.08) H 02/04/17 11:50 APTT 35.9 Seconds (23.7-30.8) H 02/04/17 11:50 - Constitutional Appears: Well, Non-toxic, No Acute Distress - Head Exam Head Exam: ATRAUMATIC, NORMOCEPHALIC - Eye Exam Eye Exam: EOMI, Normal appearance - ENT Exam ENT Exam: Mucous Membranes Moist - Respiratory Exam Respiratory Exam: absent: Accessory Muscle Use, Respiratory Distress - GI/Abdominal Exam GI & Abdominal Exam: soft, non-tender, still mildly distended but improved, hyperactive bowel sounds, was on bedpan with visible [place] 6 diarrhea - Rectal Exam Additional comments: left perirectal abscess area slowly improving daily, re- placed a small amount of packing over the top layer and re-dressed - Extremities Exam Extremities exam: Negative for: calf tenderness - Neurological Exam Neurological exam: Alert, Oriented x4 - Skin Skin Exam: Dry, Warm Assessment and Plan - Assessment and Plan (Free Text) Assessment: 76 year old male with perirectal abscess s/p I&D POD#23. Plan: Will cont wound care/dressing changes daily with nursing changes if gets soiled Again re-enforced to patient that he must keep area clean and dry despite his diarrhea Medical management per primary team, discussed with them Will discuss with attending physician. Thank you for the pleasure of participating in the care of this interesting patient.
[2017-02-07] MEDS: Vancomycin 25 MG/ML PO SCH ×4 (11:37→21:50)
[2017-02-07] MEDS: Acetaminophen 650mg/20.3ml solution UD PO PRN ×2 (11:41→21:49)
[2017-02-08] MEDS: metroNIDAZOLE IV 250mg/50 ml 250 MG/50 ML BAG IVPB SCH ×3 (05:30→22:39)
[2017-02-08 07:13] LABS: BASO # 0.02 K/mm3 (0.0-2.0); BASO % 0.3 % (0.0-3.0); EOS # 0.5 (0.0-0.7); EOS % 8.3 % (1.5-5.0); GRAN # 2.23 (1.4-6.5); GRAN % 36.1 % (50.0-68.0); MEAN CELL VOLUME 89.5 fL (80.0-105.0); MEAN CORPUSCULAR HEMOGLOBIN 29.5 pg (25.0-35.0); MEAN CORPUSCULAR HGB CONC 32.9 g/dl (31.0-37.0); MEAN PLATELET VOLUME 10.6 fl (7.0-11.0); MONO # 0.4 (0.1-0.6); MONO % 6.3 % (1.0-6.0); PLATELET COUNT 282 10^3/uL (120.0-450.0); RBC 3.73 10^6/uL (3.5-6.1); RED CELL DISTRIBUTION WIDTH 14.6 % (11.5-14.5); WHITE BLOOD COUNT 6.2 10^3/ul (4.5-11.0)
[2017-02-08 07:20] LABS: ALB/GLOB RATIO 0.9 (1.1-1.8); ALBUMIN 2.8 g/dL (3.0-4.8); ALT/SGPT 53 U/L (7-56); AST/SGOT 43 U/L (15-59); BLOOD UREA NITROGEN 11 mg/dL (7-21); CALCIUM 8.7 mg/dL (8.4-10.5); GFR AFRICAN-AMERICAN > 60; GFR NON-AFRICAN AMERICAN > 60; MAGNESIUM 1.6 mg/dL (1.7-2.2)
[2017-02-08] MEDS: Cholestyramine 4 gm/Pkt UD PO SCH ×3 (08:38→16:33)
[2017-02-08] MEDS: Acetaminophen 650mg/20.3ml solution UD PO PRN ×2 (09:22→14:30)
--- NOTE | 2017-02-08 09:23 | CP.PCM.PN ---
Subjective - Date & Time of Evaluation Date of Evaluation: 02/08/17 Time of Evaluation: 07:15 - Subjective Subjective: Arias Lim D.O. 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 Patient was seen and examined at bedside with surgical team. Patient is relatively unchanged, still having some loose bowel movements but has been getting the dressings changed frequently to keep the area clean and dry. No complaints at this time. Objective - Vital Signs/Intake and Output Vital Signs (last 24 hours): Temp Pulse Resp BP Pulse Ox 98.2 F 60 18 163/72 H 98 02/08/17 07:30 02/08/17 07:30 02/08/17 07:30 02/08/17 07:30 02/08/17 07:30 Intake and Output: 02/08/17 02/08/17 06:59 18:59 Intake Total 2760 Output Total 300 Balance 2460 - Medications Medications: Current Medications Acetaminophen (Tylenol 650mg/20.3ml Solution Ud) 650 mg PO Q4H PRN PRN Reason: Pain, moderate (4-7) Last Admin: 02/07/17 21:49 Dose: 650 mg Apixaban (Eliquis) 5 mg PO BID [facility] PRN Reason: Protocol Last Admin: 02/07/17 17:37 Dose: 5 mg Aspirin (Aspirin Chewable) 81 mg PO DAILY [facility] Last Admin: 02/07/17 10:00 Dose: Not Given Atorvastatin Calcium (Lipitor) 20 mg PO QPM [facility] Last Admin: 02/07/17 17:37 Dose: 20 mg Cholestyramine Resin (Questran) 4 gm PO AC [facility] Last Admin: 02/08/17 08:38 Dose: 4 gm Diphenhydramine HCl (Benadryl) 50 mg PO HS PRN PRN Reason: Insomnia Last Admin: 02/07/17 23:15 Dose: 50 mg Hydralazine HCl (Apresoline) 10 mg IVP Q6 PRN PRN Reason: Systolic Blood Pressure Hydrochlorothiazide (Microzide) 12.5 mg PO DAILY [facility] Last Admin: 02/07/17 15:13 Dose: Not Given Sodium Chloride (Sodium Chloride 0.9%) 1,000 mls @ 100 mls/hr IV .Q10H [facility] Last Admin: 02/06/17 23:31 Dose: 100 mls/hr Metronidazole (Flagyl) 250 mg in 50 mls @ 100 mls/hr IVPB Q8 [facility] PRN Reason: Protocol Stop: 02/09/17 22:01 Last Admin: 02/08/17 05:30 Dose: 100 mls/hr Lactobacillus Acidophilus (Bacid Acidophilus) 1 cap PO TID [facility] Last Admin: 02/07/17 17:37 Dose: 1 cap Losartan Potassium (Cozaar) 100 mg PO DAILY [facility] Last Admin: 02/07/17 10:00 Dose: Not Given Morphine Sulfate (Morphine) 2 mg IVP Q6H PRN PRN Reason: Pain, severe (8-10) Mupirocin (Bactroban Ointment) 0 gm TOP DAILY [facility] Last Admin: 02/07/17 15:13 Dose: 1 applic Ondansetron HCl (Zofran Inj) 4 mg IVP Q4H PRN PRN Reason: Nausea/Vomiting Pantoprazole Sodium (Protonix Inj) 40 mg IVP DAILY [facility] Last Admin: 02/07/17 15:14 Dose: Not Given Petrolatum (Desitin Maximum Strength Topical 40% Oint) 0 gm TOP Q4H PRN PRN Reason: Rash Vancomycin HCl (Vancocin 25 Mg/Ml (Oral Use)) 500 mg PO QID [facility] PRN Reason: Protocol Last Admin: 02/07/17 21:50 Dose: 500 mg - Labs Labs: 02/08/17 06:20 02/08/17 06:20 PT 14.3 Seconds (9.9-11.8) H 02/04/17 11:50 INR 1.32 (0.93-1.08) H 02/04/17 11:50 APTT 35.9 Seconds (23.7-30.8) H 02/04/17 11:50 - Constitutional Appears: Well, No Acute Distress - Head Exam Head Exam: ATRAUMATIC, NORMOCEPHALIC - Eye Exam Eye Exam: EOMI, Normal appearance - ENT Exam ENT Exam: Mucous Membranes Moist - Respiratory Exam Respiratory Exam: absent: Accessory Muscle Use, Respiratory Distress - GI/Abdominal Exam GI & Abdominal Exam: soft, non-tender, nondistended, hyperactive bowel sounds - Rectal Exam Additional comments: left perirectal abscess area with no interval change - Extremities Exam Extremities exam: Negative for: calf tenderness - Neurological Exam Neurological exam: Alert, Oriented x4 - Skin Skin Exam: Dry, Warm Assessment and Plan - Assessment and Plan (Free Text) Assessment: 76 year old male with perirectal abscess s/p I&D POD#24 Plan: Cont daily dressing changes plus PRN soiling No other interventions warranted at this time Medical management per primary team, discussed with them Will discuss with attending physician. Thank you for the pleasure of participating in the care of this interesting patient.
[2017-02-08] MEDS: Lactobacillus Acidophilus 500 MU Cap PO SCH ×3 (10:52→17:29)
[2017-02-08] MEDS: Vancomycin 25 MG/ML PO SCH ×4 (10:55→22:39)
--- NOTE | 2017-02-08 15:50 | CP.PCM.PN ---
<Pablito Barrera - Last Filed: 02/08/17 15:46> Subjective - Date & Time of Evaluation Date of Evaluation: 02/08/17 Time of Evaluation: 07:20 - Subjective Subjective: Internal Medicine Progress Note for Dr. Orantes/Dr. Sharpe service Patient seen and examined at bedside. Today is hospital 5. No acute events overnight. Persisting abdominal pain, diarrhea, and LE pain, but all improving. PO intake also improving. Denies chest pain, shortness of breath, nausea/emesis, hematochezia/melena, or dysuria/hematuria. Objective - Vital Signs/Intake and Output Vital Signs (last 24 hours): Temp Pulse Resp BP Pulse Ox 98.2 F 60 18 163/72 H 98 02/08/17 07:30 02/08/17 07:30 02/08/17 07:30 02/08/17 07:30 02/08/17 07:30 Intake and Output: 02/08/17 02/08/17 06:59 18:59 Intake Total 2760 720 Output Total 300 700 Balance 2460 20 - Medications Medications: Current Medications Acetaminophen (Tylenol 650mg/20.3ml Solution Ud) 650 mg PO Q4H PRN PRN Reason: Pain, moderate (4-7) Last Admin: 02/08/17 14:30 Dose: 650 mg Apixaban (Eliquis) 5 mg PO BID [facility] PRN Reason: Protocol Last Admin: 02/08/17 10:52 Dose: 5 mg Aspirin (Aspirin Chewable) 81 mg PO DAILY [facility] Last Admin: 02/08/17 10:52 Dose: 81 mg Atorvastatin Calcium (Lipitor) 20 mg PO QPM [facility] Last Admin: 02/07/17 17:37 Dose: 20 mg Cholestyramine Resin (Questran) 4 gm PO AC [facility] Last Admin: 02/08/17 13:27 Dose: 4 gm Diphenhydramine HCl (Benadryl) 50 mg PO HS PRN PRN Reason: Insomnia Last Admin: 02/07/17 23:15 Dose: 50 mg Hydralazine HCl (Apresoline) 10 mg IVP Q6 PRN PRN Reason: Systolic Blood Pressure Hydrochlorothiazide (Microzide) 12.5 mg PO DAILY [facility] Last Admin: 02/08/17 10:53 Dose: 12.5 mg Sodium Chloride (Sodium Chloride 0.9%) 1,000 mls @ 100 mls/hr IV .Q10H [facility] Last Admin: 02/06/17 23:31 Dose: 100 mls/hr Metronidazole (Flagyl) 250 mg in 50 mls @ 100 mls/hr IVPB Q8 [facility] PRN Reason: Protocol Stop: 02/09/17 22:01 Last Admin: 02/08/17 13:27 Dose: 100 mls/hr Lactobacillus Acidophilus (Bacid Acidophilus) 1 cap PO TID [facility] Last Admin: 02/08/17 13:27 Dose: 1 cap Losartan Potassium (Cozaar) 100 mg PO DAILY [facility] Last Admin: 02/08/17 10:53 Dose: 100 mg Mupirocin (Bactroban Ointment) 0 gm TOP DAILY [facility] Last Admin: 02/08/17 10:53 Dose: 1 applic Ondansetron HCl (Zofran Inj) 4 mg IVP Q4H PRN PRN Reason: Nausea/Vomiting Pantoprazole Sodium (Protonix Inj) 40 mg IVP DAILY [facility] Last Admin: 02/08/17 10:53 Dose: 40 mg Petrolatum (Desitin Maximum Strength Topical 40% Oint) 0 gm TOP Q4H PRN PRN Reason: Rash Vancomycin HCl (Vancocin 25 Mg/Ml (Oral Use)) 500 mg PO QID [facility] PRN Reason: Protocol Last Admin: 02/08/17 14:31 Dose: 500 mg - Labs Labs: 02/08/17 06:20 02/08/17 06:20 PT 14.3 Seconds (9.9-11.8) H 02/04/17 11:50 INR 1.32 (0.93-1.08) H 02/04/17 11:50 APTT 35.9 Seconds (23.7-30.8) H 02/04/17 11:50 - Additional Findings Additional findings: - Constitutional Appears: Non-toxic, Resting comfortably in bed, no acute distress - Head Exam Head Exam: ATRAUMATIC, NORMAL INSPECTION, NORMOCEPHALIC - Eye Exam Eye Exam: EOMI, Normal appearance. absent: Conjunctival injection, Scleral icterus Pupil Exam: absent: Irregular, Unequal - ENT Exam ENT Exam: Mucous Membranes Moist - Neck Exam Neck Exam: Full ROM. absent: Tenderness, JVD - Respiratory Exam Respiratory Exam: Clear to Ausculation Bilateral, NORMAL BREATHING PATTERN. absent: Accessory Muscle Use, Chest Wall Tenderness, Decreased Breath Sounds, Rales, Rhonchi, Wheezes - Cardiovascular Exam Cardiovascular Exam: REGULAR RHYTHM, RRR, +S1, +S2. absent: Bradycardia, Tachycardia, Irregular Rhythm, +S4 - GI/Abdominal Exam GI & Abdominal Exam: Soft, Normal Bowel Sounds, Diffuse tenderness to palpation (most prominent along epigastric and LLQ regions, decreased compared to yesterday). absent: Distended, Firm, Rigid - Extremities Exam Extremities Exam: Tenderness along lateral upper thighs (predominantly on left, minimal tenderness on the right), No edema/erythema/temperature abnormalities on palpation bilaterally, +1 dorsalis pedis and +2 radial pulses bilaterally - Back Exam Back Exam: Healing posterior wound along buttocks with some serosanguinous fluid leakage, no surrounding erythema/edema. absent: rash noted - Neurological Exam Neurological Exam: Alert, Awake, Oriented x3 - Psychiatric Exam Psychiatric exam: Normal Affect, Normal Mood - Skin Skin Exam: Dry, Intact, Normal Color, Warm Assessment and Plan - Assessment and Plan (Free Text) Assessment: This is a 76 yo M with PMH of CAD s/p stent placement, prostate cancer s/p robotic reconstruction, GERD, hyperlipidemia, 3rd degree AV block s/ p permanent pacer, dilated cardiomyopathy (latest MUGA scan with LVEF of 60%), and hypertension who represents to [facility] [place] with complaint of profuse watery diarrhea and diffuse abdominal pain. He is being treated for C. Diff colitis. Plan: 1) C. Diff with likely C. Diff colitis -CT abd demonstrated rectosigmoid colitis, C. Diff antigen positive -continue PO vanco and flagyl -stool cultures, ova/parasites pending; fecal leukocytes negative -GI (Dr. Mota) consulted, appreciate all recs; continue PO vanco, questran, and probiotics -IVF, heart-healthy diet as tolerated -monitor and replete electrolytes as needed -improved PO intake toleration, but still primarily liquids and diarrhea with all intake. 2) DENISE: RESOLVED -prerenal, likely dehydration 2/2 colitis/diarrhea -IVF, monitor and replete electrolytes as needed -Cr 1.0 (1.5 on admit) 3) Perirectal abscess -Patient is s/p incision & drainage followed by debridement and further debridement, as per Surgical team -Blood and urine cultures have remain negative on previous admission -Continue with wound care, minimal packing required -scheduled for outpatient followup with Surgery two weeks from most recent discharge -Afebrile, no leukocytosis -Surgery consulted, appreciate all recs; keep site clean, clean after each episode of diarrhea, no acute intervention required 4) Bilateral DVT -continue therapeutic AC with eliquis -leg pain improving as per patient -H/H stable, continue to monitor 5) CAD w/ stents -continue ASA, hctz and cozaar 6) HLD -continue lipitor Dispo: Med/Surg, on abx regimen for C. Diff, IVF to maintain appropriate hydration, advancing diet as tolerated FEN: Heart-healthy diet, NS 100cc/hr Access: Peripheral IV Consults: GI Ppx: protonix for GI, Eliquis covers for DVT Patient seen, reviewed, and discussed with attending, Dr. Orantes. <Bowen Orantes - Last Filed: 02/22/17 11:32> Objective - Vital Signs/Intake and Output Vital Signs (last 24 hours): Temp Pulse Resp BP Pulse Ox 98 F 64 20 118/60 98 02/12/17 16:00 02/12/17 16:00 02/12/17 16:00 02/12/17 16:00 02/12/17 16:00 - Labs Labs: 02/12/17 07:15 02/12/17 07:15 PT 14.3 Seconds (9.9-11.8) H 02/04/17 11:50 INR 1.32 (0.93-1.08) H 02/04/17 11:50 APTT 35.9 Seconds (23.7-30.8) H 02/04/17 11:50 Attending/Attestation - Attestation I have personally seen and examined this patient.: Yes I have fully participated in the care of the patient.: Yes I have reviewed all pertinent clinical information, including history, physical exam and plan: Yes Notes (Text): 02/22/17 11:31 Medical record note made by resident after discussion with my direction and input after patient personally seen and examined by me. I have reviewed the chart and agree that the record accurately reflects my personal performance of the history, physical, data review and medical decision making for the course of this patient.
[2017-02-09] MEDS: Acetaminophen 650mg/20.3ml solution UD PO PRN ×3 (00:09→22:30)
[2017-02-09] MEDS: metroNIDAZOLE IV 250mg/50 ml 250 MG/50 ML BAG IVPB SCH ×3 (07:30→21:41)
[2017-02-09] MEDS: Cholestyramine 4 gm/Pkt UD PO SCH ×3 (07:30→17:21)
[2017-02-09 07:39] LABS: BASO # 0.02 K/mm3 (0.0-2.0); BASO % 0.3 % (0.0-3.0); EOS # 0.5 (0.0-0.7); EOS % 8.5 % (1.5-5.0); LYMPH # 2.6 (1.2-3.4); LYMPH % 42.6 % (22.0-35.0); MEAN CORPUSCULAR HEMOGLOBIN 30.4 pg (25.0-35.0); MEAN CORPUSCULAR HGB CONC 34.2 g/dl (31.0-37.0); MEAN PLATELET VOLUME 10.3 fl (7.0-11.0); MONO # 0.4 (0.1-0.6); MONO % 6.6 % (1.0-6.0); PLATELET COUNT 265 10^3/uL (120.0-450.0); RBC 3.62 10^6/uL (3.5-6.1); RED CELL DISTRIBUTION WIDTH 14.5 % (11.5-14.5); WHITE BLOOD COUNT 6.2 10^3/ul (4.5-11.0)
[2017-02-09 07:56] LABS: ALB/GLOB RATIO 0.9 (1.1-1.8); ALBUMIN 2.7 g/dL (3.0-4.8); ALT/SGPT 65 U/L (7-56); AST/SGOT 67 U/L (15-59); BLOOD UREA NITROGEN 8 mg/dL (7-21); CALCIUM 8.4 mg/dL (8.4-10.5); GFR AFRICAN-AMERICAN > 60; GFR NON-AFRICAN AMERICAN > 60
[2017-02-09] MEDS: Lactobacillus Acidophilus 500 MU Cap PO SCH ×3 (10:17→17:21)
[2017-02-09] MEDS: Vancomycin 25 MG/ML PO SCH ×5 (10:20→21:41)
--- NOTE | 2017-02-09 11:12 | CP.PCM.PN ---
Subjective - Date & Time of Evaluation Date of Evaluation: 02/09/17 Time of Evaluation: 06:40 - Subjective Subjective: Arias Lim D.O. PGY-1, General Surgery Progress Note: Dr. Loren Wong 76 year old male with perirectal abscess s/p I&D POD#25. Patient was seen and examined at bedside with surgical team. Patient continues to improve little by little, today has no complaints including no fevers/chills/N/V/D/C or otherwise. No acute overnight events. Objective - Vital Signs/Intake and Output Vital Signs (last 24 hours): Temp Pulse Resp BP Pulse Ox 97.3 F L 62 20 140/74 96 02/08/17 17:20 02/08/17 17:20 02/08/17 17:20 02/08/17 17:20 02/08/17 17:20 Intake and Output: 02/09/17 02/09/17 06:59 18:59 Intake Total 840 Output Total 1000 Balance -160 - Medications Medications: Current Medications Acetaminophen (Tylenol 650mg/20.3ml Solution Ud) 650 mg PO Q4H PRN PRN Reason: Pain, moderate (4-7) Last Admin: 02/09/17 00:09 Dose: 650 mg Apixaban (Eliquis) 5 mg PO BID [facility] PRN Reason: Protocol Last Admin: 02/09/17 10:17 Dose: 5 mg Aspirin (Aspirin Chewable) 81 mg PO DAILY [facility] Last Admin: 02/09/17 10:18 Dose: 81 mg Atorvastatin Calcium (Lipitor) 20 mg PO QPM [facility] Last Admin: 02/08/17 17:29 Dose: 20 mg Cholestyramine Resin (Questran) 4 gm PO AC [facility] Last Admin: 02/09/17 07:30 Dose: 4 gm Diphenhydramine HCl (Benadryl) 50 mg PO HS PRN PRN Reason: Insomnia Last Admin: 02/09/17 00:09 Dose: 50 mg Hydralazine HCl (Apresoline) 10 mg IVP Q6 PRN PRN Reason: Systolic Blood Pressure Hydrochlorothiazide (Microzide) 12.5 mg PO DAILY [facility] Last Admin: 02/09/17 10:18 Dose: 12.5 mg Sodium Chloride (Sodium Chloride 0.9%) 1,000 mls @ 100 mls/hr IV .Q10H [facility] Last Admin: 02/06/17 23:31 Dose: 100 mls/hr Metronidazole (Flagyl) 250 mg in 50 mls @ 100 mls/hr IVPB Q8 [facility] PRN Reason: Protocol Stop: 02/09/17 22:01 Last Admin: 02/09/17 07:30 Dose: 100 mls/hr Lactobacillus Acidophilus (Bacid Acidophilus) 1 cap PO TID [facility] Last Admin: 02/09/17 10:17 Dose: 1 cap Losartan Potassium (Cozaar) 100 mg PO DAILY [facility] Last Admin: 02/09/17 10:20 Dose: 100 mg Mupirocin (Bactroban Ointment) 0 gm TOP DAILY [facility] Last Admin: 02/09/17 10:19 Dose: 1 applic Ondansetron HCl (Zofran Inj) 4 mg IVP Q4H PRN PRN Reason: Nausea/Vomiting Pantoprazole Sodium (Protonix Inj) 40 mg IVP DAILY [facility] Last Admin: 02/09/17 10:19 Dose: 40 mg Petrolatum (Desitin Maximum Strength Topical 40% Oint) 0 gm TOP Q4H PRN PRN Reason: Rash Vancomycin HCl (Vancocin 25 Mg/Ml (Oral Use)) 500 mg PO QID [facility] PRN Reason: Protocol Last Admin: 02/09/17 10:20 Dose: 500 mg - Labs Labs: 02/09/17 06:55 02/09/17 06:55 PT 14.3 Seconds (9.9-11.8) H 02/04/17 11:50 INR 1.32 (0.93-1.08) H 02/04/17 11:50 APTT 35.9 Seconds (23.7-30.8) H 02/04/17 11:50 - Constitutional Appears: Well, No Acute Distress - Head Exam Head Exam: ATRAUMATIC, NORMOCEPHALIC - Eye Exam Eye Exam: EOMI, Normal appearance - ENT Exam ENT Exam: Mucous Membranes Moist - Respiratory Exam Respiratory Exam: absent: Accessory Muscle Use, Respiratory Distress - GI/Abdominal Exam GI & Abdominal Exam: soft, non-tender, nondistended, hyperactive bowel sounds - Rectal Exam Additional comments: no interval change in left perirectal abscess area, re- dressed - Extremities Exam Extremities exam: Negative for: calf tenderness - Neurological Exam Neurological exam: Alert, Oriented x4 - Skin Skin Exam: Dry, Warm Assessment and Plan - Assessment and Plan (Free Text) Assessment: 76 year old male with perirectal abscess s/p I&D POD#25. Plan: Area slowly improving Re-dressed wound at bedside, will cont daily and discussed with nursing staff to change PRN soiling and keep area clean and dry Medical management per primary team, discussed with them Will discuss with attending physician. Thank you for the pleasure of participating in the care of this interesting patient.
--- NOTE | 2017-02-09 16:25 | CP.PCM.PN ---
<Pablito Barrera - Last Filed: 02/09/17 16:20> Subjective - Date & Time of Evaluation Date of Evaluation: 02/09/17 Time of Evaluation: 07:00 - Subjective Subjective: Internal Medicine Progress Note for Dr. Orantes/Dr. Sharpe service Patient seen and examined at bedside. Today is hospital 6. No acute events overnight. Persisting abdominal pain, diarrhea, and LE pain, but all improving. PO intake also improving, but reports diarrhea within minutes of any PO intake. Diarrhea now classified as loose stools, no longer only water. Denies chest pain, shortness of breath, nausea/emesis, hematochezia/melena, or dysuria/hematuria. Objective - Vital Signs/Intake and Output Vital Signs (last 24 hours): Temp Pulse Resp BP Pulse Ox 98 F 62 18 137/56 L 98 02/09/17 07:30 02/09/17 07:30 02/09/17 07:30 02/09/17 07:30 02/09/17 07:30 Intake and Output: 02/09/17 02/09/17 06:59 18:59 Intake Total 840 600 Output Total 1000 700 Balance -160 -100 - Medications Medications: Current Medications Acetaminophen (Tylenol 650mg/20.3ml Solution Ud) 650 mg PO Q4H PRN PRN Reason: Pain, moderate (4-7) Last Admin: 02/09/17 11:24 Dose: 650 mg Apixaban (Eliquis) 5 mg PO BID [facility] PRN Reason: Protocol Last Admin: 02/09/17 10:17 Dose: 5 mg Aspirin (Aspirin Chewable) 81 mg PO DAILY [facility] Last Admin: 02/09/17 10:18 Dose: 81 mg Atorvastatin Calcium (Lipitor) 20 mg PO QPM [facility] Last Admin: 02/08/17 17:29 Dose: 20 mg Cholestyramine Resin (Questran) 4 gm PO AC [facility] Last Admin: 02/09/17 13:02 Dose: 4 gm Diphenhydramine HCl (Benadryl) 50 mg PO HS PRN PRN Reason: Insomnia Last Admin: 02/09/17 00:09 Dose: 50 mg Hydralazine HCl (Apresoline) 10 mg IVP Q6 PRN PRN Reason: Systolic Blood Pressure Hydrochlorothiazide (Microzide) 12.5 mg PO DAILY [facility] Last Admin: 02/09/17 10:18 Dose: 12.5 mg Sodium Chloride (Sodium Chloride 0.9%) 1,000 mls @ 100 mls/hr IV .Q10H [facility] Last Admin: 02/06/17 23:31 Dose: 100 mls/hr Metronidazole (Flagyl) 250 mg in 50 mls @ 100 mls/hr IVPB Q8 [facility] PRN Reason: Protocol Stop: 02/09/17 22:01 Last Admin: 02/09/17 14:27 Dose: 100 mls/hr Lactobacillus Acidophilus (Bacid Acidophilus) 1 cap PO TID [facility] Last Admin: 02/09/17 14:27 Dose: 1 cap Losartan Potassium (Cozaar) 100 mg PO DAILY [facility] Last Admin: 02/09/17 10:20 Dose: 100 mg Mupirocin (Bactroban Ointment) 0 gm TOP DAILY [facility] Last Admin: 02/09/17 10:19 Dose: 1 applic Ondansetron HCl (Zofran Inj) 4 mg IVP Q4H PRN PRN Reason: Nausea/Vomiting Pantoprazole Sodium (Protonix Inj) 40 mg IVP DAILY [facility] Last Admin: 02/09/17 10:19 Dose: 40 mg Petrolatum (Desitin Maximum Strength Topical 40% Oint) 0 gm TOP Q4H PRN PRN Reason: Rash Vancomycin HCl (Vancocin 25 Mg/Ml (Oral Use)) 500 mg PO QID [facility] PRN Reason: Protocol Last Admin: 02/09/17 14:27 Dose: 500 mg - Labs Labs: 02/09/17 06:55 02/09/17 06:55 PT 14.3 Seconds (9.9-11.8) H 02/04/17 11:50 INR 1.32 (0.93-1.08) H 02/04/17 11:50 APTT 35.9 Seconds (23.7-30.8) H 02/04/17 11:50 - Additional Findings Additional findings: - Constitutional Appears: Non-toxic, Resting comfortably in bed, No acute distress at rest - Head Exam Head Exam: ATRAUMATIC, NORMAL INSPECTION, NORMOCEPHALIC - Eye Exam Eye Exam: EOMI, Normal appearance. absent: Conjunctival injection, Scleral icterus Pupil Exam: absent: Irregular, Unequal - ENT Exam ENT Exam: Mucous Membranes Moist - Neck Exam Neck Exam: Full ROM. absent: Tenderness, JVD - Respiratory Exam Respiratory Exam: Clear to Ausculation Bilateral, NORMAL BREATHING PATTERN. absent: Accessory Muscle Use, Chest Wall Tenderness, Decreased Breath Sounds, Rales, Rhonchi, Wheezes - Cardiovascular Exam Cardiovascular Exam: REGULAR RHYTHM, RRR, +S1, +S2. absent: Bradycardia, Tachycardia, Irregular Rhythm, +S4 - GI/Abdominal Exam GI & Abdominal Exam: Soft, Normal Bowel Sounds, Tenderness to palpation (less diffuse, primarily present along waistline region L>R). absent: Distended, Firm , Rigid - Extremities Exam Extremities Exam: Tenderness along lateral upper thighs (predominantly on left, minimal tenderness on the right), No edema/erythema/temperature abnormalities on palpation bilaterally, +1 dorsalis pedis and +2 radial pulses bilaterally - Back Exam Back Exam: Healing posterior wound along buttocks with bandaging in place, no surrounding erythema/edema. absent: rash noted - Neurological Exam Neurological Exam: Alert, Awake, Oriented x3 - Psychiatric Exam Psychiatric exam: Normal Affect, Normal Mood - Skin Skin Exam: Dry, Intact, Normal Color, Warm Assessment and Plan - Assessment and Plan (Free Text) Assessment: This is a 76 yo M with PMH of CAD s/p stent placement, prostate cancer s/p robotic reconstruction, GERD, hyperlipidemia, 3rd degree AV block s/ p permanent pacer, dilated cardiomyopathy (latest MUGA scan with LVEF of 60%), and hypertension who represents to [facility] [place] with complaint of profuse watery diarrhea and diffuse abdominal pain. He is being treated for C. Diff colitis. Plan: 1) Colitis, suspected C. Diff colitis -CT abd demonstrated rectosigmoid colitis, C. Diff antigen positive but C. Diff toxin negative -continue PO vanco and IV flagyl -fecal leukocytes negative -GI (Dr. Mota) consulted, appreciate all recs; continue PO vanco, questran, and probiotics -IVF, heart-healthy diet as tolerated -monitor and replete electrolytes as needed -improved PO intake toleration, but still primarily liquids and diarrhea with all intake; when able to reliably tolerate PO diet, can be discharged on oral abx 2) DENISE: RESOLVED -prerenal, likely dehydration 2/2 colitis/diarrhea -IVF, monitor and replete electrolytes as needed -Cr 1.0 (1.5 on admit) 3) Perirectal abscess -Patient is s/p incision & drainage followed by debridement and further debridement, as per Surgical team -Blood and urine cultures have remain negative on previous admission -Continue with wound care, minimal packing required -scheduled for outpatient followup with Surgery two weeks from most recent discharge -Afebrile, no leukocytosis -Surgery consulted, appreciate all recs; keep site clean, clean after each episode of diarrhea, no acute intervention required 4) Bilateral DVT -continue therapeutic AC with eliquis -leg pain improving as per patient -H/H stable, continue to monitor 5) CAD w/ stents -continue ASA, hctz and cozaar 6) HLD -continue lipitor Dispo: Med/Surg, on abx regimen for C. Diff, IVF to maintain appropriate hydration, advancing diet as tolerated; will discharge when reliably tolerating PO FEN: Heart-healthy diet, NS 100cc/hr Access: Peripheral IV Consults: GI Ppx: protonix for GI, Eliquis covers for DVT Patient seen, reviewed, and discussed with attending, Dr. Sharpe. <Woody Sharpe - Last Filed: 02/14/17 15:25> Objective - Vital Signs/Intake and Output Vital Signs (last 24 hours): Temp Pulse Resp BP Pulse Ox 98 F 64 20 118/60 98 02/12/17 16:00 02/12/17 16:00 02/12/17 16:00 02/12/17 16:00 02/12/17 16:00 - Labs Labs: 02/12/17 07:15 02/12/17 07:15 PT 14.3 Seconds (9.9-11.8) H 02/04/17 11:50 INR 1.32 (0.93-1.08) H 02/04/17 11:50 APTT 35.9 Seconds (23.7-30.8) H 02/04/17 11:50 Attending/Attestation - Attestation I have personally seen and examined this patient.: Yes I have fully participated in the care of the patient.: Yes I have reviewed all pertinent clinical information, including history, physical exam and plan: Yes Notes (Text): 02/14/17 15:25 Medical record note made by the resident after discussion with my direction and input after the patient was personally seen and examined by me. I have reviewed the chart and agree that the record accurately reflects by personal performance of the history, physical exam, data review, and medical decision-making, in the course for the patient. I have also personally directed the plan of care.
[2017-02-09] MEDS: Sodium Chloride 0.9% 1,000 ML IV SCH (16:31)
[2017-02-10] MEDS: metroNIDAZOLE IV 250mg/50 ml 250 MG/50 ML BAG IVPB SCH ×3 (06:47→21:46)
[2017-02-10] MEDS: Cholestyramine 4 gm/Pkt UD PO SCH (06:48)
--- NOTE | 2017-02-10 07:26 | CP.PCM.PN ---
Subjective - Date & Time of Evaluation Date of Evaluation: 02/10/17 Time of Evaluation: 07:24 - Subjective Subjective: Surgery for Dr. Pimentel Pt s&erin SIMENTAL. No diarrhea. No BM for 1 day. Denies F/C/N/V/D/CP/SOB/abd pain. Objective - Vital Signs/Intake and Output Vital Signs (last 24 hours): Temp Pulse Resp BP Pulse Ox 98 F 72 18 140/62 98 02/09/17 16:31 02/09/17 16:31 02/09/17 16:31 02/09/17 16:31 02/09/17 16:31 Intake and Output: 02/10/17 02/10/17 06:59 18:59 Intake Total 960 Output Total 1850 Balance -890 - Medications Medications: Current Medications Acetaminophen (Tylenol 650mg/20.3ml Solution Ud) 650 mg PO Q4H PRN PRN Reason: Pain, moderate (4-7) Last Admin: 02/09/17 22:30 Dose: 650 mg Apixaban (Eliquis) 5 mg PO BID [facility] PRN Reason: Protocol Last Admin: 02/09/17 17:21 Dose: 5 mg Aspirin (Aspirin Chewable) 81 mg PO DAILY [facility] Last Admin: 02/09/17 10:18 Dose: 81 mg Atorvastatin Calcium (Lipitor) 20 mg PO QPM [facility] Last Admin: 02/09/17 17:21 Dose: 20 mg Cholestyramine Resin (Questran) 4 gm PO AC [facility] Last Admin: 02/10/17 06:48 Dose: 4 gm Diphenhydramine HCl (Benadryl) 50 mg PO HS PRN PRN Reason: Insomnia Last Admin: 02/09/17 22:30 Dose: 50 mg Hydralazine HCl (Apresoline) 10 mg IVP Q6 PRN PRN Reason: Systolic Blood Pressure Hydrochlorothiazide (Microzide) 12.5 mg PO DAILY [facility] Last Admin: 02/09/17 10:18 Dose: 12.5 mg Sodium Chloride (Sodium Chloride 0.9%) 1,000 mls @ 100 mls/hr IV .Q10H [facility] Last Admin: 02/09/17 16:31 Dose: 100 mls/hr Metronidazole (Flagyl) 250 mg in 50 mls @ 100 mls/hr IVPB Q8 [facility] PRN Reason: Protocol Stop: 02/14/17 07:01 Last Admin: 02/10/17 06:47 Dose: 100 mls/hr Lactobacillus Acidophilus (Bacid Acidophilus) 1 cap PO TID [facility] Last Admin: 02/09/17 17:21 Dose: 1 cap Losartan Potassium (Cozaar) 100 mg PO DAILY [facility] Last Admin: 02/09/17 10:20 Dose: 100 mg Mupirocin (Bactroban Ointment) 0 gm TOP DAILY [facility] Last Admin: 02/09/17 10:19 Dose: 1 applic Ondansetron HCl (Zofran Inj) 4 mg IVP Q4H PRN PRN Reason: Nausea/Vomiting Pantoprazole Sodium (Protonix Inj) 40 mg IVP DAILY [facility] Last Admin: 02/09/17 10:19 Dose: 40 mg Petrolatum (Desitin Maximum Strength Topical 40% Oint) 0 gm TOP Q4H PRN PRN Reason: Rash Vancomycin HCl (Vancocin 25 Mg/Ml (Oral Use)) 500 mg PO QID [facility] PRN Reason: Protocol Last Admin: 02/09/17 21:41 Dose: 500 mg - Labs Labs: 02/09/17 06:55 02/09/17 06:55 PT 14.3 Seconds (9.9-11.8) H 02/04/17 11:50 INR 1.32 (0.93-1.08) H 02/04/17 11:50 APTT 35.9 Seconds (23.7-30.8) H 02/04/17 11:50 - Constitutional Appears: No Acute Distress - Head Exam Head Exam: ATRAUMATIC, NORMAL INSPECTION, NORMOCEPHALIC - Eye Exam Eye Exam: EOMI, Normal appearance, PERRL Pupil Exam: NORMAL ACCOMODATION, PERRL - ENT Exam ENT Exam: Mucous Membranes Moist, Normal Exam - Neck Exam Neck Exam: Full ROM, Normal Inspection. absent: Lymphadenopathy - Respiratory Exam Respiratory Exam: Clear to Ausculation Bilateral, NORMAL BREATHING PATTERN - Cardiovascular Exam Cardiovascular Exam: REGULAR RHYTHM, +S1, +S2. absent: Murmur - GI/Abdominal Exam GI & Abdominal Exam: Soft, Normal Bowel Sounds. absent: Distended, Firm, Guarding, Rigid, Tenderness, Mass, Rebound - Rectal Exam Rectal Exam: absent: Black Stool, Bloody Stool, Hemorrhoids, Fecal Impaction Additional comments: Dressing C/D/I. wound healing well. - Exam Exam: NORMAL INSPECTION - Extremities Exam Extremities Exam: Normal Capillary Refill, Normal Inspection. absent: Joint Swelling, Pedal Edema - Back Exam Back Exam: NORMAL INSPECTION - Neurological Exam Neurological Exam: Alert, Awake, CN II-XII Intact, Oriented x3 - Psychiatric Exam Psychiatric exam: Normal Affect, Normal Mood - Skin Skin Exam: Dry, Erythema, Intact, Warm. absent: Mottled, Pallor, Pallor, Petechiae, Rash Assessment and Plan - Assessment and Plan (Free Text) Assessment: 76 year old male with perirectal abscess s/p I&D POD#26 now with C-diff diarrhea : resolved. Plan: Area slowly improving Re-dressed wound at bedside, will cont daily and discussed with nursing staff to change PRN soiling and keep area clean and dry Medical management per primary team, discussed with them Per GI: hold lactobacilus and Qurestran since constipation DW Dr. Infante who is covering for Dr. Pimentel
[2017-02-10] MEDS: Sodium Chloride 0.9% 1,000 ML IV SCH (09:42)
[2017-02-10] MEDS: Vancomycin 25 MG/ML PO SCH ×3 (09:43→21:48)
[2017-02-10] MEDS: Acetaminophen 650mg/20.3ml solution UD PO PRN (09:50)
--- NOTE | 2017-02-10 11:09 | CP.PCM.PN ---
<Pablito Barrera - Last Filed: 02/10/17 21:54> Subjective - Date & Time of Evaluation Date of Evaluation: 02/10/17 Time of Evaluation: 07:05 - Subjective Subjective: Internal Medicine Progress Note for Dr. Orantes/Dr. Sharpe service Patient seen and examined at bedside. Today is hospital 7. No acute events overnight. Persisting abdominal pain and LE pain, but all improving. No diarrhea overnight, patient reports a few episodes of feeling the need to evacuate bowels, but having only flatus on toilet or miniscule stool passing, but denies complaints of feeling distended/bloated or having severe abdominal pain. Diarrhea currently classified as loose stools, no longer only water. Denies chest pain, shortness of breath, nausea/emesis, hematochezia/melena, or dysuria/hematuria. Objective - Vital Signs/Intake and Output Vital Signs (last 24 hours): Temp Pulse Resp BP Pulse Ox 98.1 F 67 20 160/83 H 99 02/10/17 07:39 02/10/17 07:39 02/10/17 07:39 02/10/17 07:39 02/10/17 07:39 Intake and Output: 02/10/17 02/10/17 06:59 18:59 Intake Total 960 Output Total 1850 Balance -890 - Medications Medications: Current Medications Acetaminophen (Tylenol 650mg/20.3ml Solution Ud) 650 mg PO Q4H PRN PRN Reason: Pain, moderate (4-7) Last Admin: 02/10/17 09:50 Dose: 650 mg Apixaban (Eliquis) 5 mg PO BID [facility] PRN Reason: Protocol Last Admin: 02/10/17 09:42 Dose: 5 mg Aspirin (Aspirin Chewable) 81 mg PO DAILY [facility] Last Admin: 02/10/17 09:41 Dose: 81 mg Atorvastatin Calcium (Lipitor) 20 mg PO QPM [facility] Last Admin: 02/09/17 17:21 Dose: 20 mg Cholestyramine Resin (Questran) 4 gm PO AC [facility] Last Admin: 02/10/17 06:48 Dose: 4 gm Diphenhydramine HCl (Benadryl) 50 mg PO HS PRN PRN Reason: Insomnia Last Admin: 02/09/17 22:30 Dose: 50 mg Hydralazine HCl (Apresoline) 10 mg IVP Q6 PRN PRN Reason: Systolic Blood Pressure Hydrochlorothiazide (Microzide) 12.5 mg PO DAILY [facility] Last Admin: 02/10/17 09:42 Dose: 12.5 mg Sodium Chloride (Sodium Chloride 0.9%) 1,000 mls @ 100 mls/hr IV .Q10H [facility] Last Admin: 02/10/17 09:42 Dose: 100 mls/hr Metronidazole (Flagyl) 250 mg in 50 mls @ 100 mls/hr IVPB Q8 [facility] PRN Reason: Protocol Stop: 02/14/17 07:01 Last Admin: 02/10/17 06:47 Dose: 100 mls/hr Lactobacillus Acidophilus (Bacid Acidophilus) 1 cap PO TID [facility] Last Admin: 02/09/17 17:21 Dose: 1 cap Losartan Potassium (Cozaar) 100 mg PO DAILY [facility] Last Admin: 02/10/17 09:41 Dose: 100 mg Mupirocin (Bactroban Ointment) 0 gm TOP DAILY [facility] Last Admin: 02/10/17 09:41 Dose: 1 applic Ondansetron HCl (Zofran Inj) 4 mg IVP Q4H PRN PRN Reason: Nausea/Vomiting Pantoprazole Sodium (Protonix Inj) 40 mg IVP DAILY [facility] Last Admin: 02/10/17 09:42 Dose: 40 mg Petrolatum (Desitin Maximum Strength Topical 40% Oint) 0 gm TOP Q4H PRN PRN Reason: Rash Vancomycin HCl (Vancocin 25 Mg/Ml (Oral Use)) 500 mg PO QID [facility] PRN Reason: Protocol Last Admin: 02/10/17 09:43 Dose: 500 mg - Labs Labs: 02/09/17 06:55 02/09/17 06:55 PT 14.3 Seconds (9.9-11.8) H 02/04/17 11:50 INR 1.32 (0.93-1.08) H 02/04/17 11:50 APTT 35.9 Seconds (23.7-30.8) H 02/04/17 11:50 - Additional Findings Additional findings: - Constitutional Appears: Non-toxic, Resting comfortably in bed, No acute distress at rest - Head Exam Head Exam: ATRAUMATIC, NORMAL INSPECTION, NORMOCEPHALIC - Eye Exam Eye Exam: EOMI, Normal appearance. absent: Conjunctival injection, Scleral icterus Pupil Exam: absent: Irregular, Unequal - ENT Exam ENT Exam: Mucous Membranes Moist - Neck Exam Neck Exam: Full ROM. absent: Tenderness, JVD - Respiratory Exam Respiratory Exam: Clear to Ausculation Bilateral, NORMAL BREATHING PATTERN. absent: Accessory Muscle Use, Chest Wall Tenderness, Decreased Breath Sounds, Rales, Rhonchi, Wheezes - Cardiovascular Exam Cardiovascular Exam: REGULAR RHYTHM, RRR, +S1, +S2. absent: Bradycardia, Tachycardia, Irregular Rhythm, +S4 - GI/Abdominal Exam GI & Abdominal Exam: Soft, Normal Bowel Sounds, Tenderness to palpation (less diffuse, primarily present along waistline region L>R). absent: Distended, Firm , Rigid - Extremities Exam Extremities Exam: Tenderness along left-lateral upper thigh, no longer any tenderness to palpation on the right-lateral upper thigh, No edema/erythema/ temperature abnormalities on palpation bilaterally, +1 dorsalis pedis and +2 radial pulses bilaterally - Back Exam Back Exam: Healing posterior wound along buttocks with bandaging in place, no surrounding erythema/edema. absent: rash noted - Neurological Exam Neurological Exam: Alert, Awake, Oriented x3 - Psychiatric Exam Psychiatric exam: Normal Affect, Normal Mood - Skin Skin Exam: Dry, Intact, Normal Color, Warm Assessment and Plan - Assessment and Plan (Free Text) Assessment: This is a 76 yo M with PMH of CAD s/p stent placement, prostate cancer s/p robotic reconstruction, GERD, hyperlipidemia, 3rd degree AV block s/ p permanent pacer, dilated cardiomyopathy (latest MUGA scan with LVEF of 60%), and hypertension who represents to [facility] with complaint of profuse watery diarrhea and diffuse abdominal pain. He is being treated for colitis ( suspected C. Diff colitis). Plan: 1) Colitis, suspected C. Diff colitis -CT abd demonstrated rectosigmoid colitis, C. Diff antigen positive but C. Diff toxin negative -continue PO vanco and IV flagyl -fecal leukocytes negative -GI (Dr. Mota) consulted, appreciate all recs; continue PO vanco, questran, and probiotics -IVF, heart-healthy diet as tolerated -monitor and replete electrolytes as needed -improved PO intake toleration, but still primarily liquids and diarrhea with all intake; when able to reliably tolerate PO diet, can be discharged on oral abx 2) DENISE: RESOLVED -prerenal, likely dehydration 2/2 colitis/diarrhea -IVF, monitor and replete electrolytes as needed -Cr 1.0 today (1.5 on admit) 3) Perirectal abscess -Patient is s/p incision & drainage followed by debridement and further debridement, as per Surgical team -Blood and urine cultures have remain negative on previous admission -Continue with wound care, minimal packing required -scheduled for outpatient followup with Surgery two weeks from most recent discharge -Afebrile, no leukocytosis -Surgery consulted, appreciate all recs; keep site clean, clean after each episode of diarrhea, no acute intervention required 4) Bilateral DVT -continue therapeutic AC with eliquis -leg pain improving as per patient -H/H stable, continue to monitor 5) CAD w/ stents -continue ASA, hctz and cozaar 6) HLD -continue lipitor Dispo: Med/Surg, on abx regimen for C. Diff, IVF to maintain appropriate hydration, advancing diet as tolerated; will discharge when reliably tolerating PO FEN: Heart-healthy diet, NS 100cc/hr Access: Peripheral IV Consults: GI Ppx: protonix for GI, Eliquis covers for DVT Patient reviewed and discussed with attending, Dr. Bernstein. <Alexis Bernstein S - Last Filed: 02/10/17 22:22> Subjective - Subjective Subjective: Discussed with the resident went over labs and plan continue with aggressive treatment and care Objective - Vital Signs/Intake and Output Vital Signs (last 24 hours): Temp Pulse Resp BP Pulse Ox 98.1 F 67 20 160/83 H 99 02/10/17 07:39 02/10/17 07:39 02/10/17 07:39 02/10/17 07:39 02/10/17 07:39 Intake and Output: 02/10/17 02/11/17 18:59 06:59 Intake Total 540 Output Total 1300 Balance -760 - Medications Medications: Current Medications Acetaminophen (Tylenol 650mg/20.3ml Solution Ud) 650 mg PO Q4H PRN PRN Reason: Pain, moderate (4-7) Last Admin: 02/10/17 09:50 Dose: 650 mg Apixaban (Eliquis) 5 mg PO BID [facility] PRN Reason: Protocol Last Admin: 02/10/17 21:48 Dose: 5 mg Aspirin (Aspirin Chewable) 81 mg PO DAILY [facility] Last Admin: 02/10/17 09:41 Dose: 81 mg Atorvastatin Calcium (Lipitor) 20 mg PO QPM [facility] Last Admin: 02/10/17 21:48 Dose: 20 mg Cholestyramine Resin (Questran) 4 gm PO AC [facility] Last Admin: 02/10/17 06:48 Dose: 4 gm Diphenhydramine HCl (Benadryl) 50 mg PO HS PRN PRN Reason: Insomnia Last Admin: 02/10/17 21:47 Dose: 50 mg Hydralazine HCl (Apresoline) 10 mg IVP Q6 PRN PRN Reason: Systolic Blood Pressure Hydrochlorothiazide (Microzide) 12.5 mg PO DAILY [facility] Last Admin: 02/10/17 09:42 Dose: 12.5 mg Sodium Chloride (Sodium Chloride 0.9%) 1,000 mls @ 100 mls/hr IV .Q10H [facility] Last Admin: 02/10/17 09:42 Dose: 100 mls/hr Metronidazole (Flagyl) 250 mg in 50 mls @ 100 mls/hr IVPB Q8 [facility] PRN Reason: Protocol Stop: 02/14/17 07:01 Last Admin: 02/10/17 21:46 Dose: 100 mls/hr Lactobacillus Acidophilus (Bacid Acidophilus) 1 cap PO TID [facility] Last Admin: 02/09/17 17:21 Dose: 1 cap Losartan Potassium (Cozaar) 100 mg PO DAILY [facility] Last Admin: 02/10/17 09:41 Dose: 100 mg Mupirocin (Bactroban Ointment) 0 gm TOP DAILY [facility] Last Admin: 02/10/17 09:41 Dose: 1 applic Ondansetron HCl (Zofran Inj) 4 mg IVP Q4H PRN PRN Reason: Nausea/Vomiting Pantoprazole Sodium (Protonix Inj) 40 mg IVP DAILY [facility] Last Admin: 02/10/17 09:42 Dose: 40 mg Petrolatum (Desitin Maximum Strength Topical 40% Oint) 0 gm TOP Q4H PRN PRN Reason: Rash Vancomycin HCl (Vancocin 25 Mg/Ml (Oral Use)) 500 mg PO QID [facility] PRN Reason: Protocol Last Admin: 02/10/17 21:48 Dose: 500 mg - Labs Labs: 02/10/17 12:05 02/10/17 12:05 PT 14.3 Seconds (9.9-11.8) H 02/04/17 11:50 INR 1.32 (0.93-1.08) H 02/04/17 11:50 APTT 35.9 Seconds (23.7-30.8) H 02/04/17 11:50
[2017-02-10 12:23] LABS: BASO # 0.03 K/mm3 (0.0-2.0); BASO % 0.4 % (0.0-3.0); EOS # 0.5 (0.0-0.7); EOS % 6.2 % (1.5-5.0); GRAN # 3.55 (1.4-6.5); GRAN % 41.7 % (50.0-68.0); HEMOGLOBIN 12.5 gm/dL (14.0-18.0); LYMPH # 3.8 (1.2-3.4); LYMPH % 44.4 % (22.0-35.0); MEAN CELL VOLUME 89.4 fL (80.0-105.0); MEAN CORPUSCULAR HEMOGLOBIN 30.9 pg (25.0-35.0); MEAN CORPUSCULAR HGB CONC 34.5 g/dl (31.0-37.0); MEAN PLATELET VOLUME 10.3 fl (7.0-11.0); MONO # 0.6 (0.1-0.6); MONO % 7.3 % (1.0-6.0); PLATELET COUNT 358 10^3/uL (120.0-450.0); RBC 4.05 10^6/uL (3.5-6.1); RED CELL DISTRIBUTION WIDTH 14.7 % (11.5-14.5); WHITE BLOOD COUNT 8.5 10^3/ul (4.5-11.0)
[2017-02-10 12:49] LABS: ALB/GLOB RATIO 0.9 (1.1-1.8); ALBUMIN 3.1 g/dL (3.0-4.8); ALT/SGPT 78 U/L (7-56); AST/SGOT 93 U/L (15-59); BLOOD UREA NITROGEN 11 mg/dL (7-21); GFR AFRICAN-AMERICAN > 60; GFR NON-AFRICAN AMERICAN > 60; MAGNESIUM 1.6 mg/dL (1.7-2.2)
[2017-02-11] MEDS: metroNIDAZOLE IV 250mg/50 ml 250 MG/50 ML BAG IVPB SCH ×3 (06:33→21:35)
[2017-02-11] MEDS: Sodium Chloride 0.9% 1,000 ML IV SCH ×3 (06:36→21:39)
--- NOTE | 2017-02-11 07:17 | CP.PCM.PN ---
Subjective - Date & Time of Evaluation Date of Evaluation: 02/11/17 Time of Evaluation: : - Subjective Subjective: Surgery for Dr. Infante covering for Dr. Pimentel Pt s&e. Pt having formed regular BM. Dressing C/D/I. Denies F/C/N/V/CP/SOB. Tolerating diet. Pain controlled. Objective - Vital Signs/Intake and Output Vital Signs (last 24 hours): Temp Pulse Resp BP Pulse Ox 98.1 F 67 20 160/83 H 99 02/10/17 07:39 02/10/17 07:39 02/10/17 07:39 02/10/17 07:39 02/10/17 07:39 Intake and Output: 02/11/17 02/11/17 06:59 18:59 Intake Total 180 Output Total 900 Balance -720 - Medications Medications: Current Medications Acetaminophen (Tylenol 650mg/20.3ml Solution Ud) 650 mg PO Q4H PRN PRN Reason: Pain, moderate (4-7) Last Admin: 02/10/17 09:50 Dose: 650 mg Apixaban (Eliquis) 5 mg PO BID [facility] PRN Reason: Protocol Last Admin: 02/10/17 21:48 Dose: 5 mg Aspirin (Aspirin Chewable) 81 mg PO DAILY [facility] Last Admin: 02/10/17 09:41 Dose: 81 mg Atorvastatin Calcium (Lipitor) 20 mg PO QPM [facility] Last Admin: 02/10/17 21:48 Dose: 20 mg Cholestyramine Resin (Questran) 4 gm PO AC [facility] Last Admin: 02/10/17 06:48 Dose: 4 gm Diphenhydramine HCl (Benadryl) 50 mg PO HS PRN PRN Reason: Insomnia Last Admin: 02/10/17 21:47 Dose: 50 mg Hydralazine HCl (Apresoline) 10 mg IVP Q6 PRN PRN Reason: Systolic Blood Pressure Hydrochlorothiazide (Microzide) 12.5 mg PO DAILY [facility] Last Admin: 02/10/17 09:42 Dose: 12.5 mg Sodium Chloride (Sodium Chloride 0.9%) 1,000 mls @ 100 mls/hr IV .Q10H [facility] Last Admin: 02/11/17 06:36 Dose: 100 mls/hr Metronidazole (Flagyl) 250 mg in 50 mls @ 100 mls/hr IVPB Q8 [facility] PRN Reason: Protocol Stop: 02/14/17 07:01 Last Admin: 02/11/17 06:33 Dose: 100 mls/hr Lactobacillus Acidophilus (Bacid Acidophilus) 1 cap PO TID [facility] Last Admin: 02/09/17 17:21 Dose: 1 cap Losartan Potassium (Cozaar) 100 mg PO DAILY [facility] Last Admin: 02/10/17 09:41 Dose: 100 mg Mupirocin (Bactroban Ointment) 0 gm TOP DAILY [facility] Last Admin: 02/10/17 09:41 Dose: 1 applic Ondansetron HCl (Zofran Inj) 4 mg IVP Q4H PRN PRN Reason: Nausea/Vomiting Pantoprazole Sodium (Protonix Inj) 40 mg IVP DAILY [facility] Last Admin: 02/10/17 09:42 Dose: 40 mg Petrolatum (Desitin Maximum Strength Topical 40% Oint) 0 gm TOP Q4H PRN PRN Reason: Rash Vancomycin HCl (Vancocin 25 Mg/Ml (Oral Use)) 500 mg PO QID [facility] PRN Reason: Protocol Last Admin: 02/10/17 21:48 Dose: 500 mg - Labs Labs: 02/10/17 12:05 02/10/17 12:05 PT 14.3 Seconds (9.9-11.8) H 02/04/17 11:50 INR 1.32 (0.93-1.08) H 02/04/17 11:50 APTT 35.9 Seconds (23.7-30.8) H 02/04/17 11:50 - Constitutional Appears: No Acute Distress - Head Exam Head Exam: ATRAUMATIC, NORMAL INSPECTION, NORMOCEPHALIC - Eye Exam Eye Exam: EOMI, Normal appearance, PERRL Pupil Exam: NORMAL ACCOMODATION, PERRL - ENT Exam ENT Exam: Mucous Membranes Moist, Normal Exam - Neck Exam Neck Exam: Full ROM, Normal Inspection. absent: Lymphadenopathy - Respiratory Exam Respiratory Exam: Clear to Ausculation Bilateral, NORMAL BREATHING PATTERN - Cardiovascular Exam Cardiovascular Exam: REGULAR RHYTHM, +S1, +S2. absent: Murmur - GI/Abdominal Exam GI & Abdominal Exam: Soft, Normal Bowel Sounds. absent: Distended, Firm, Guarding, Rigid, Tenderness - Rectal Exam Rectal Exam: absent: Black Stool, Bloody Stool, Hemorrhoids, Fecal Impaction, NORMAL INSPECTION Additional comments: Dressing C/D/I. Granulation tissues. WOund healing well. - Exam Exam: NORMAL INSPECTION - Extremities Exam Extremities Exam: Full ROM, Normal Capillary Refill - Back Exam Back Exam: NORMAL INSPECTION - Neurological Exam Neurological Exam: Alert, Awake, CN II-XII Intact, Oriented x3 - Psychiatric Exam Psychiatric exam: Normal Affect, Normal Mood - Skin Skin Exam: Dry, Intact, Normal Color, Warm Assessment and Plan - Assessment and Plan (Free Text) Assessment: 76 year old male with perirectal abscess s/p I&D POD#27 now with C-diff diarrhea : resolved. Plan: Area slowly improving Re-dressed wound at bedside, will cont daily and discussed with nursing staff to change PRN soiling and keep area clean and dry Medical management per primary team, discussed with them Per GI: hold lactobacilus and Qurestran since constipation DW Dr. Infante who is covering for Dr. Pimentel
[2017-02-11 07:44] LABS: ALB/GLOB RATIO 0.9 (1.1-1.8); ALBUMIN 2.9 g/dL (3.0-4.8); ALT/SGPT 80 U/L (7-56); AST/SGOT 61 U/L (15-59); BLOOD UREA NITROGEN 9 mg/dL (7-21); CALCIUM 8.8 mg/dL (8.4-10.5); GFR AFRICAN-AMERICAN > 60; GFR NON-AFRICAN AMERICAN > 60; MAGNESIUM 1.5 mg/dL (1.7-2.2)
[2017-02-11 07:49] LABS: BASO # 0.03 K/mm3 (0.0-2.0); BASO % 0.5 % (0.0-3.0); EOS # 0.6 (0.0-0.7); EOS % 8.9 % (1.5-5.0); GRAN # 2.62 (1.4-6.5); HEMOGLOBIN 11.8 gm/dL (14.0-18.0); LYMPH # 2.9 (1.2-3.4); LYMPH % 43.9 % (22.0-35.0); MEAN CELL VOLUME 88.7 fL (80.0-105.0); MEAN CORPUSCULAR HEMOGLOBIN 30.3 pg (25.0-35.0); MEAN CORPUSCULAR HGB CONC 34.1 g/dl (31.0-37.0); MEAN PLATELET VOLUME 10.2 fl (7.0-11.0); MONO # 0.4 (0.1-0.6); MONO % 6.7 % (1.0-6.0); PLATELET COUNT 342 10^3/uL (120.0-450.0); RED CELL DISTRIBUTION WIDTH 14.9 % (11.5-14.5); WHITE BLOOD COUNT 6.5 10^3/ul (4.5-11.0)
--- NOTE | 2017-02-11 10:47 | CP.PCM.PN ---
Subjective - Date & Time of Evaluation Date of Evaluation: 02/11/17 Time of Evaluation: 10:00 - Subjective Subjective: seen in bed starting to feel better he had 2 normal bms eating better less pain best demond seen him Objective - Vital Signs/Intake and Output Vital Signs (last 24 hours): Temp Pulse Resp BP Pulse Ox 98.1 F 67 18 152/70 H 97 02/10/17 07:39 02/11/17 08:47 02/11/17 08:47 02/11/17 08:47 02/11/17 08:47 Intake and Output: 02/11/17 02/11/17 06:59 18:59 Intake Total 180 Output Total 900 Balance -720 - Medications Medications: Current Medications Acetaminophen (Tylenol 650mg/20.3ml Solution Ud) 650 mg PO Q4H PRN PRN Reason: Pain, moderate (4-7) Last Admin: 02/10/17 09:50 Dose: 650 mg Apixaban (Eliquis) 5 mg PO BID [facility] PRN Reason: Protocol Last Admin: 02/10/17 21:48 Dose: 5 mg Aspirin (Aspirin Chewable) 81 mg PO DAILY [facility] Last Admin: 02/10/17 09:41 Dose: 81 mg Atorvastatin Calcium (Lipitor) 20 mg PO QPM [facility] Last Admin: 02/10/17 21:48 Dose: 20 mg Cholestyramine Resin (Questran) 4 gm PO AC [facility] Last Admin: 02/10/17 06:48 Dose: 4 gm Diphenhydramine HCl (Benadryl) 50 mg PO HS PRN PRN Reason: Insomnia Last Admin: 02/10/17 21:47 Dose: 50 mg Hydralazine HCl (Apresoline) 10 mg IVP Q6 PRN PRN Reason: Systolic Blood Pressure Hydrochlorothiazide (Microzide) 12.5 mg PO DAILY [facility] Last Admin: 02/10/17 09:42 Dose: 12.5 mg Sodium Chloride (Sodium Chloride 0.9%) 1,000 mls @ 100 mls/hr IV .Q10H [facility] Last Admin: 02/11/17 06:36 Dose: 100 mls/hr Metronidazole (Flagyl) 250 mg in 50 mls @ 100 mls/hr IVPB Q8 [facility] PRN Reason: Protocol Stop: 02/14/17 07:01 Last Admin: 02/11/17 06:33 Dose: 100 mls/hr Lactobacillus Acidophilus (Bacid Acidophilus) 1 cap PO TID [facility] Last Admin: 02/09/17 17:21 Dose: 1 cap Losartan Potassium (Cozaar) 100 mg PO DAILY [facility] Last Admin: 02/10/17 09:41 Dose: 100 mg Mupirocin (Bactroban Ointment) 0 gm TOP DAILY [facility] Last Admin: 02/10/17 09:41 Dose: 1 applic Ondansetron HCl (Zofran Inj) 4 mg IVP Q4H PRN PRN Reason: Nausea/Vomiting Pantoprazole Sodium (Protonix Inj) 40 mg IVP DAILY [facility] Last Admin: 02/10/17 09:42 Dose: 40 mg Petrolatum (Desitin Maximum Strength Topical 40% Oint) 0 gm TOP Q4H PRN PRN Reason: Rash Vancomycin HCl (Vancocin 25 Mg/Ml (Oral Use)) 500 mg PO QID [facility] PRN Reason: Protocol Last Admin: 02/10/17 21:48 Dose: 500 mg - Labs Labs: 02/11/17 07:00 02/11/17 07:00 PT 14.3 Seconds (9.9-11.8) H 02/04/17 11:50 INR 1.32 (0.93-1.08) H 02/04/17 11:50 APTT 35.9 Seconds (23.7-30.8) H 02/04/17 11:50 - Constitutional Appears: No Acute Distress - Head Exam Head Exam: ATRAUMATIC, NORMAL INSPECTION, NORMOCEPHALIC - ENT Exam ENT Exam: Mucous Membranes Moist - Respiratory Exam Respiratory Exam: Decreased Breath Sounds, Clear to Ausculation Bilateral - Cardiovascular Exam Cardiovascular Exam: REGULAR RHYTHM - GI/Abdominal Exam GI & Abdominal Exam: Soft, Normal Bowel Sounds - Neurological Exam Neurological Exam: Alert, Oriented x3 - Skin Skin Exam: Warm Assessment and Plan - Assessment and Plan (Free Text) Assessment: colitis diarrhea cdiff perirectal abscess anemia Plan: went over meds labs orders doing better i asked him to start doing more physically like oob to chair pt rechecking labs encouragement answered questions
[2017-02-11] MEDS: Vancomycin 25 MG/ML PO SCH ×4 (11:12→21:37)
[2017-02-11] MEDS ORDERED: Magnesium Sulfate 2 GM in Sodium Chloride 0.9% 100 ML IVPB ONE (19:41)
[2017-02-11] MEDS: Acetaminophen 650mg/20.3ml solution UD PO PRN (21:35)
[2017-02-12] MEDS: metroNIDAZOLE IV 250mg/50 ml 250 MG/50 ML BAG IVPB SCH ×2 (06:33→13:38)
[2017-02-12 07:42] LABS: BASO # 0.02 K/mm3 (0.0-2.0); BASO % 0.3 % (0.0-3.0); EOS # 0.5 (0.0-0.7); GRAN # 2.46 (1.4-6.5); GRAN % 39.3 % (50.0-68.0); HEMOGLOBIN 12.2 gm/dL (14.0-18.0); LYMPH # 2.8 (1.2-3.4); LYMPH % 44.3 % (22.0-35.0); MEAN CELL VOLUME 90.2 fL (80.0-105.0); MEAN CORPUSCULAR HGB CONC 33.2 g/dl (31.0-37.0); MONO # 0.5 (0.1-0.6); MONO % 8.1 % (1.0-6.0); PLATELET COUNT 360 10^3/uL (120.0-450.0); RBC 4.07 10^6/uL (3.5-6.1); RED CELL DISTRIBUTION WIDTH 15.1 % (11.5-14.5); WHITE BLOOD COUNT 6.3 10^3/ul (4.5-11.0)
--- NOTE | 2017-02-12 08:04 | CP.PCM.PN ---
Subjective - Date & Time of Evaluation Date of Evaluation: 02/12/17 Time of Evaluation: 07:59 - Subjective Subjective: Pt seen and examined at bedside. Pt doing well with no complaints at this time. +BM/+Flatus. Tolerating diet. Dressing C/D/I. Patient denies N/V/C/D/F/CP/SOB. Pain controlled. Objective - Vital Signs/Intake and Output Vital Signs (last 24 hours): Temp Pulse Resp BP Pulse Ox 97.7 F 69 18 148/72 100 02/11/17 16:16 02/11/17 16:16 02/11/17 16:16 02/11/17 16:16 02/11/17 16:16 Intake and Output: 02/12/17 02/12/17 06:59 18:59 Intake Total 1440 Output Total 2250 Balance -810 - Medications Medications: Current Medications Acetaminophen (Tylenol 650mg/20.3ml Solution Ud) 650 mg PO Q4H PRN PRN Reason: Pain, moderate (4-7) Last Admin: 02/11/17 21:35 Dose: 650 mg Apixaban (Eliquis) 5 mg PO BID [facility] PRN Reason: Protocol Last Admin: 02/11/17 18:24 Dose: 5 mg Aspirin (Aspirin Chewable) 81 mg PO DAILY [facility] Last Admin: 02/11/17 11:14 Dose: 81 mg Atorvastatin Calcium (Lipitor) 20 mg PO QPM [facility] Last Admin: 02/11/17 18:24 Dose: 20 mg Cholestyramine Resin (Questran) 4 gm PO AC [facility] Last Admin: 02/10/17 06:48 Dose: 4 gm Diphenhydramine HCl (Benadryl) 50 mg PO HS PRN PRN Reason: Insomnia Last Admin: 02/11/17 21:41 Dose: 50 mg Hydralazine HCl (Apresoline) 10 mg IVP Q6 PRN PRN Reason: Systolic Blood Pressure Hydrochlorothiazide (Microzide) 12.5 mg PO DAILY [facility] Last Admin: 02/11/17 11:13 Dose: 12.5 mg Sodium Chloride (Sodium Chloride 0.9%) 1,000 mls @ 100 mls/hr IV .Q10H [facility] Last Admin: 02/11/17 21:39 Dose: Not Given Metronidazole (Flagyl) 250 mg in 50 mls @ 100 mls/hr IVPB Q8 [facility] PRN Reason: Protocol Stop: 02/14/17 07:01 Last Admin: 02/12/17 06:33 Dose: 100 mls/hr Lactobacillus Acidophilus (Bacid Acidophilus) 1 cap PO TID [facility] Last Admin: 02/09/17 17:21 Dose: 1 cap Losartan Potassium (Cozaar) 100 mg PO DAILY [facility] Last Admin: 02/11/17 11:14 Dose: 100 mg Mupirocin (Bactroban Ointment) 0 gm TOP DAILY [facility] Last Admin: 02/11/17 11:15 Dose: 1 applic Ondansetron HCl (Zofran Inj) 4 mg IVP Q4H PRN PRN Reason: Nausea/Vomiting Pantoprazole Sodium (Protonix Inj) 40 mg IVP DAILY [facility] Last Admin: 02/11/17 11:11 Dose: 40 mg Petrolatum (Desitin Maximum Strength Topical 40% Oint) 0 gm TOP Q4H PRN PRN Reason: Rash Vancomycin HCl (Vancocin 25 Mg/Ml (Oral Use)) 500 mg PO QID [facility] PRN Reason: Protocol Last Admin: 02/11/17 21:37 Dose: 500 mg - Labs Labs: 02/12/17 07:15 02/11/17 07:00 PT 14.3 Seconds (9.9-11.8) H 02/04/17 11:50 INR 1.32 (0.93-1.08) H 02/04/17 11:50 APTT 35.9 Seconds (23.7-30.8) H 02/04/17 11:50 - Constitutional Appears: Well - Head Exam Head Exam: ATRAUMATIC - Eye Exam Eye Exam: EOMI, Normal appearance - ENT Exam ENT Exam: Mucous Membranes Moist, Normal Exam - Neck Exam Neck Exam: Normal Inspection - Respiratory Exam Respiratory Exam: NORMAL BREATHING PATTERN - Cardiovascular Exam Cardiovascular Exam: REGULAR RHYTHM - GI/Abdominal Exam GI & Abdominal Exam: Soft, Normal Bowel Sounds - Back Exam Additional comments: ischiorectal wound, granulation tissue present. Dressing c/d/i without evidence of infection Assessment and Plan - Assessment and Plan (Free Text) Assessment: ishiorectal abscess debridment 01/15/17 Plan: medically managed will continue to monitor while here no surgical intervention needed at this time
[2017-02-12 08:09] LABS: BLOOD UREA NITROGEN 11 mg/dL (7-21); GFR AFRICAN-AMERICAN > 60; GFR NON-AFRICAN AMERICAN > 60; MAGNESIUM 1.9 mg/dL (1.7-2.2)
[2017-02-12 08:10] LABS: ALB/GLOB RATIO 0.9 (1.1-1.8); ALT/SGPT 82 U/L (7-56); AST/SGOT 59 U/L (15-59)
[2017-02-12 09:40] VITALS: PULSE 64; RESP 20
[2017-02-12] MEDS: Vancomycin 25 MG/ML PO SCH ×2 (10:35→13:37)
[2017-02-12 16:41] VITALS: BP 118/60; TEMP 98; O2SAT 98
--- NOTE | 2017-02-12 21:18 | CP.PCM.DIS ---
<BROOKS DURAN - Last Filed: 02/12/17 22:40> Provider - Provider Date of Admission: 02/05/17 17:16 Attending physician: Bowen Orantes MD Primary care physician: Bowen Orantes MD Consults: ID: [id number] GI: Mota Cardio: Morgan Pulm: Leonardopman IR: Spencer Carmona Heme-onc: Vish [place]: [facility] [place] Time Spent in preparation of Discharge (in minutes): 50 Diagnosis - Discharge Diagnosis (1) Colitis Status: Acute Priority: High (2) DVT (deep venous thrombosis) Status: Chronic Priority: Medium (3) Perirectal abscess Status: Chronic Priority: Medium (4) CHF (congestive heart failure) Status: Chronic Priority: Low Hospital Course - Lab Results Lab Results: Most Recent Lab Values WBC 6.3 10^3/ul (4.5-11.0) 02/12/17 07:15 RBC 4.07 10^6/uL (3.5-6.1) 02/12/17 07:15 Hgb 12.2 gm/dL (14.0-18.0) L 02/12/17 07:15 Hct 36.7 % (42.0-52.0) L 02/12/17 07:15 MCV 90.2 fL (80.0-105.0) 02/12/17 07:15 MCH 30.0 pg (25.0-35.0) 02/12/17 07:15 MCHC 33.2 g/dl (31.0-37.0) 02/12/17 07:15 RDW 15.1 % (11.5-14.5) H 02/12/17 07:15 Plt Count 360 10^3/uL (120.0-450.0) 02/12/17 07:15 MPV 10.0 fl (7.0-11.0) 02/12/17 07:15 Gran % 39.3 % (50.0-68.0) L 02/12/17 07:15 Lymph % (Auto) 44.3 % (22.0-35.0) H 02/12/17 07:15 Stephenson % (Auto) 8.1 % (1.0-6.0) H 02/12/17 07:15 Eos % (Auto) 8.0 % (1.5-5.0) H 02/12/17 07:15 Baso % (Auto) 0.3 % (0.0-3.0) 02/12/17 07:15 Gran # 2.46 (1.4-6.5) 02/12/17 07:15 Lymph # 2.8 (1.2-3.4) 02/12/17 07:15 Stephenson # 0.5 (0.1-0.6) 02/12/17 07:15 Eos # 0.5 (0.0-0.7) 02/12/17 07:15 Baso # 0.02 K/mm3 (0.0-2.0) 02/12/17 07:15 PT 14.3 Seconds (9.9-11.8) H 02/04/17 11:50 INR 1.32 (0.93-1.08) H 02/04/17 11:50 APTT 35.9 Seconds (23.7-30.8) H 02/04/17 11:50 Sodium 139 mmol/L (132-148) 02/12/17 07:15 Potassium 4.5 mmol/L (3.6-5.0) 02/12/17 07:15 Chloride 108 mmol/L (98-107) H 02/12/17 07:15 Carbon Dioxide 26 mmol/L (21-33) 02/12/17 07:15 Anion Gap 10 (10-20) 02/12/17 07:15 BUN 11 mg/dL (7-21) 02/12/17 07:15 Creatinine 1.1 mg/dL (0.5-1.4) 02/12/17 07:15 Est GFR ( Amer) > 60 02/12/17 07:15 Est GFR (Non-Af Amer) > 60 02/12/17 07:15 Random Glucose 98 mg/dL (70-110) 02/12/17 07:15 Calcium 9.0 mg/dL (8.4-10.5) 02/12/17 07:15 Phosphorus 3.5 mg/dL (2.5-4.5) 02/12/17 07:15 Magnesium 1.9 mg/dL (1.7-2.2) 02/12/17 07:15 Total Bilirubin 0.5 mg/dL (0.2-1.3) 02/12/17 07:15 AST 59 U/L (15-59) 02/12/17 07:15 ALT 82 U/L (7-56) H 02/12/17 07:15 Alkaline Phosphatase 67 U/L (38-133) 02/12/17 07:15 Lactate Dehydrogenase 389 U/L (333-699) 02/04/17 11:50 Total Creatine Kinase < 20 U/L (35-230) L 02/04/17 11:50 Troponin I 0.02 ng/mL D 02/04/17 11:50 Total Protein 6.4 g/dL (5.8-8.3) 02/12/17 07:15 Albumin 3.0 g/dL (3.0-4.8) 02/12/17 07:15 Globulin 3.4 gm/dL 02/12/17 07:15 Albumin/Globulin Ratio 0.9 (1.1-1.8) L 02/12/17 07:15 Lipase 39 U/L (23-300) 02/04/17 11:50 Urine Color Yellow (YELLOW) 02/04/17 15:00 Urine Appearance Clear (CLEAR) 02/04/17 15:00 Urine pH 5.5 (4.7-8.0) 02/04/17 15:00 Ur Specific [place] >= 1.030 (1.005-1.035) 02/04/17 15:00 Urine Protein 30 mg/dL (<30 mg/dL) H 02/04/17 15:00 Urine Glucose (UA) Negative mg/dL (NEGATIVE) 02/04/17 15:00 Urine Ketones Negative mg/dL (NEGATIVE) 02/04/17 15:00 Urine Blood Trace-intact (NEGATIVE) H 02/04/17 15:00 Urine Nitrate Negative (NEGATIVE) 02/04/17 15:00 Urine Bilirubin Negative (NEGATIVE) 02/04/17 15:00 Urine Urobilinogen 0.2 E.U./dL (<1 E.U./dL) 02/04/17 15:00 Ur Leukocyte Esterase Negative Tono/uL (NEGATIVE) 02/04/17 15:00 Urine RBC 2 - 5 /hpf (0-2) 02/04/17 15:00 Urine WBC 0 - 2 /hpf (0-6) 02/04/17 15:00 Ur Epithelial Cells 1 - 3 /hpf (0-5) 02/04/17 15:00 Amorphous Sediment Few 02/04/17 15:00 Urine Bacteria Many (NEG) 02/04/17 15:00 Hyaline Casts 0 - 2 /hpf 02/04/17 15:00 Fine Granular Casts [place] Sewer 02/04/17 15:00 Coarse Granular Casts Small /hpf (0-2) H 02/04/17 15:00 Urine Other Uyeast 02/04/17 15:00 Stool Leukocytes, Qual Negative (NEGATIVE) 02/04/17 22:00 - Hospital Course Hospital Course: This is a 76 yo M with PMH of CAD s/p stent placement, prostate cancer s/p robotic reconstruction, GERD, hyperlipidemia, 3rd degree AV block s/ p permanent pacemaker placement, dilated cardiomyopathy (latest MUGA scan with LVEF of 60%), and hypertension, who was recently admitted and treated for zaira- anal abscess s/p incision and drainage, and subsequently discharged. [place] [facility] [place]. Diarrhea was suspicious for C. difficile colitis which was confirmed with testing and he was started on PO Vancomyocin and IV Metronizole. His diarrhea and oral intake improved gradually over the next few days until he was well enough to maintain hydration by oral intake alone. Today, he reports that his stools are almost back to normal, no longer watery, and he is having no abdominal pain, nausea, vomiting, fevers, or chills. All questions answered to patient's satisfaction, patient was then given scripts for 7 more days of PO vancomycin and metronidazole and discharged to home. Patient seen, reviewed, and discussed with PGY-2 Dr. Lim and attending, Dr. Orantes. Discharge Exam - Head Exam Head Exam: ATRAUMATIC, NORMOCEPHALIC - Eye Exam Eye Exam: EOMI, Normal appearance Pupil Exam: PERRL - ENT Exam ENT Exam: Mucous Membranes Moist - Respiratory Exam Respiratory Exam: NORMAL BREATHING PATTERN. absent: Rales, Rhonchi, Wheezes - Cardiovascular Exam Cardiovascular Exam: RRR, +S1, +S2. absent: Rubs - GI/Abdominal Exam GI & Abdominal Exam: Normal Bowel Sounds, Soft. absent: Firm, Guarding, Hyperactive Bowel Sounds, Rigid Additional comments: Faint LLQ tenderness - Extremities Exam Extremities exam: normal inspection, pedal pulses present - Back Exam Back exam: absent: CVA tenderness (L), CVA tenderness (R) - Neurological Exam Neurological exam: Alert, CN II-XII Intact, Oriented x3 - Psychiatric Exam Psychiatric exam: Normal Affect, Normal Mood - Skin Skin Exam: Dry, Intact, Normal Color, Warm Discharge Plan - Follow Up Plan Condition: FAIR Disposition: HOME/ ROUTINE Instructions: Apixaban (By mouth), Heart Failure (DC), Heart Failure (GEN), Pacemaker (DC), Pacemaker (GEN), Pulmonary Embolism (DC), Pulmonary Embolism ( GEN), Pulmonary Edema (DC), Pulmonary Edema (GEN), Pneumococcal Vaccine for Adults (DC), Heart Healthy Diet (DC), Deep Venous Thrombosis (ED), Deep Venous Thrombosis (DC), Deep Venous Thrombosis (GEN), Fall Prevention for Older Adults (GEN), Clostridium Difficile Infection (DC), Acute Wound Care (DC), Leg Edema ( ED), Abscess (GEN), Ascites (DC), Ascites (GEN) Additional Instructions: 1. Follow up with Dr. Orantes in the office within 2 weeks. 2. Continue the vancomycin and metronidazole as written, scripts given. 3. Maintain hydration. 4. Follow up with surgery as indicated. 5. Contact the office or return to the ER for ANY worsening symptoms or concerns. Referrals: Bowen Orantes MD [Primary Care Provider] - <Bowen Orantes - Last Filed: 02/22/17 11:32> Provider - Provider Date of Admission: 02/05/17 17:16 Attending physician: Bowen Orantes MD Primary care physician: Bowen Orantes MD Hospital Course - Lab Results Lab Results: Most Recent Lab Values WBC 6.3 10^3/ul (4.5-11.0) 02/12/17 07:15 RBC 4.07 10^6/uL (3.5-6.1) 02/12/17 07:15 Hgb 12.2 gm/dL (14.0-18.0) L 02/12/17 07:15 Hct 36.7 % (42.0-52.0) L 02/12/17 07:15 MCV 90.2 fL (80.0-105.0) 02/12/17 07:15 MCH 30.0 pg (25.0-35.0) 02/12/17 07:15 MCHC 33.2 g/dl (31.0-37.0) 02/12/17 07:15 RDW 15.1 % (11.5-14.5) H 02/12/17 07:15 Plt Count 360 10^3/uL (120.0-450.0) 02/12/17 07:15 MPV 10.0 fl (7.0-11.0) 02/12/17 07:15 Gran % 39.3 % (50.0-68.0) L 02/12/17 07:15 Lymph % (Auto) 44.3 % (22.0-35.0) H 02/12/17 07:15 Stephenson % (Auto) 8.1 % (1.0-6.0) H 02/12/17 07:15 Eos % (Auto) 8.0 % (1.5-5.0) H 02/12/17 07:15 Baso % (Auto) 0.3 % (0.0-3.0) 02/12/17 07:15 Gran # 2.46 (1.4-6.5) 02/12/17 07:15 Lymph # 2.8 (1.2-3.4) 02/12/17 07:15 Stephenson # 0.5 (0.1-0.6) 02/12/17 07:15 Eos # 0.5 (0.0-0.7) 02/12/17 07:15 Baso # 0.02 K/mm3 (0.0-2.0) 02/12/17 07:15 PT 14.3 Seconds (9.9-11.8) H 02/04/17 11:50 INR 1.32 (0.93-1.08) H 02/04/17 11:50 APTT 35.9 Seconds (23.7-30.8) H 02/04/17 11:50 Sodium 139 mmol/L (132-148) 02/12/17 07:15 Potassium 4.5 mmol/L (3.6-5.0) 02/12/17 07:15 Chloride 108 mmol/L (98-107) H 02/12/17 07:15 Carbon Dioxide 26 mmol/L (21-33) 02/12/17 07:15 Anion Gap 10 (10-20) 02/12/17 07:15 BUN 11 mg/dL (7-21) 02/12/17 07:15 Creatinine 1.1 mg/dL (0.5-1.4) 02/12/17 07:15 Est GFR ( Amer) > 60 02/12/17 07:15 Est GFR (Non-Af Amer) > 60 02/12/17 07:15 Random Glucose 98 mg/dL (70-110) 02/12/17 07:15 Calcium 9.0 mg/dL (8.4-10.5) 02/12/17 07:15 Phosphorus 3.5 mg/dL (2.5-4.5) 02/12/17 07:15 Magnesium 1.9 mg/dL (1.7-2.2) 02/12/17 07:15 Total Bilirubin 0.5 mg/dL (0.2-1.3) 02/12/17 07:15 AST 59 U/L (15-59) 02/12/17 07:15 ALT 82 U/L (7-56) H 02/12/17 07:15 Alkaline Phosphatase 67 U/L (38-133) 02/12/17 07:15 Lactate Dehydrogenase 389 U/L (333-699) 02/04/17 11:50 Total Creatine Kinase < 20 U/L (35-230) L 02/04/17 11:50 Troponin I 0.02 ng/mL D 02/04/17 11:50 Total Protein 6.4 g/dL (5.8-8.3) 02/12/17 07:15 Albumin 3.0 g/dL (3.0-4.8) 02/12/17 07:15 Globulin 3.4 gm/dL 02/12/17 07:15 Albumin/Globulin Ratio 0.9 (1.1-1.8) L 02/12/17 07:15 Lipase 39 U/L (23-300) 02/04/17 11:50 Urine Color Yellow (YELLOW) 02/04/17 15:00 Urine Appearance Clear (CLEAR) 02/04/17 15:00 Urine pH 5.5 (4.7-8.0) 02/04/17 15:00 Ur Specific [place] >= 1.030 (1.005-1.035) 02/04/17 15:00 Urine Protein 30 mg/dL (<30 mg/dL) H 02/04/17 15:00 Urine Glucose (UA) Negative mg/dL (NEGATIVE) 02/04/17 15:00 Urine Ketones Negative mg/dL (NEGATIVE) 02/04/17 15:00 Urine Blood Trace-intact (NEGATIVE) H 02/04/17 15:00 Urine Nitrate Negative (NEGATIVE) 02/04/17 15:00 Urine Bilirubin Negative (NEGATIVE) 02/04/17 15:00 Urine Urobilinogen 0.2 E.U./dL (<1 E.U./dL) 02/04/17 15:00 Ur Leukocyte Esterase Negative Tono/uL (NEGATIVE) 02/04/17 15:00 Urine RBC 2 - 5 /hpf (0-2) 02/04/17 15:00 Urine WBC 0 - 2 /hpf (0-6) 02/04/17 15:00 Ur Epithelial Cells 1 - 3 /hpf (0-5) 02/04/17 15:00 Amorphous Sediment Few 02/04/17 15:00 Urine Bacteria Many (NEG) 02/04/17 15:00 Hyaline Casts 0 - 2 /hpf 02/04/17 15:00 Fine Granular Casts [place] Sewer 02/04/17 15:00 Coarse Granular Casts Small /hpf (0-2) H 02/04/17 15:00 Urine Other Uyeast 02/04/17 15:00 Stool Leukocytes, Qual Negative (NEGATIVE) 02/04/17 22:00 Attending/Attestation - Attestation I have personally seen and examined this patient.: Yes I have fully participated in the care of the patient.: Yes I have reviewed all pertinent clinical information, including history, physical exam and plan: Yes Notes (Text): 02/22/17 11:32 Medical record note made by resident after discussion with my direction and input after patient personally seen and examined by me. I have reviewed the chart and agree that the record accurately reflects my personal performance of the history, physical, data review and medical decision making for the course of this patient.
--- NOTE | 2017-02-15 14:27 | PQF CHF ---
02/15/17 Dr. Orantes, CHF is documented on the discharge summary. Please indicate type and severity. Thank you. Clarification of your documentation is requested to better reflect the severity of illness and intensity of treatment of your patient. Indicators present [] Diagnosis of CHF and/or history of CHF [] BNP > 200 [] Imaging Finding of Pulmonary Edema /Pleural Effusions [] Fluid/Volume Overload [] Pitting edema [] Ejection Fraction < 40% (Indicative of Systolic Heart Failure) [] Ejection Fraction > 40% (Indicative of Diastolic Heart Failure) [] Dyspnea / Orthopenea / Paroxysmal Nocturnal Dyspnea [] Other: Location in the medical record that reflects the above clinical findings: [] Treatment Provided: [] PHYSICIAN'S RESPONSE Based on your medical judgment of the clinical indicators outlined above, are you treating this patient for a known or suspected: [] Acute CHF [] Systolic [] Diastolic [] Combined [] Chronic CHF [] Systolic [] Diastolic [] Combined [] Acute on Chronic CHF []Systolic [] Diastolic [] Combined [] CHF due hypertension [] Acute systolic []Chronic systolic [] Acute/ chronic systolic [] Other, please indicate: [] [] If Unable to Determine, please check the box, sign and date. Present On Admission (POA) Indicator: [] Present at the time of admission [] Not present at the time of admission [] Clinically Undetermined In responding to this query, please exercise your independent professional judgment. The fact that a question is asked does not imply that any particular answer is desired or expected. Thank you for your clarification on this documentation. 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
== END 2017-02-12 17:44 | disposition home or self-care (01) | DRG 371 ==
LOC: ED 11:03 → ERH 14:31 → 5RSO 15:16 → OBSVTOIN 02-05 17:16
PROVIDERS: ADMIT Internal Medicine; ATTEND Internal Medicine
DX: A04.7 Enterocolitis due to Clostridium difficile (principal); I50.43 Acute on chronic combined systolic (congestive) and diastolic (congestive) heart failure; I44.2 Atrioventricular block, complete; I82.403 Acute embolism and thrombosis of unspecified deep veins of lower extremity, bilateral; N17.9 Acute kidney failure, unspecified; I42.0 Dilated cardiomyopathy; K61.1 Rectal abscess; I13.0 Hypertensive heart and chronic kidney disease with heart failure and stage 1 through stage 4 chronic kidney disease, or unspecified chronic kidney disease; N18.9 Chronic kidney disease, unspecified; I25.10 Atherosclerotic heart disease of native coronary artery without angina pectoris; K21.9 Gastro-esophageal reflux disease without esophagitis; Z79.01 Long term (current) use of anticoagulants; Z79.899 Other long term (current) drug therapy; E86.0 Dehydration; E78.5 Hyperlipidemia, unspecified; D64.9 Anemia, unspecified; Z85.46 Personal history of malignant neoplasm of prostate; F51.02 Adjustment insomnia; Z87.891 Personal history of nicotine dependence; Z90.79 Acquired absence of other genital organ(s); Z95.0 Presence of cardiac pacemaker; Z95.5 Presence of coronary angioplasty implant and graft; M54.9 Dorsalgia, unspecified; K59.00 Constipation, unspecified; K29.70 Gastritis, unspecified, without bleeding

== ENCOUNTER 2017-02-27 05:45 | Inpatient (IN) | payer MEDICARE, OTHER ==
--- NOTE | 2017-02-27 06:17 | ED PDOC ---
Arrival/HPI - General Chief Complaint: GI Problem Time Seen by Provider: 02/27/17 05:50 Historian: Patient - History of Present Illness Narrative History of Present Illness (Text): 02/27/17 06:15 [place] is a 76 year old male, whose past medical history includes rectal abscess, C. diff, colitis, DVT, CAD with coronary stent, prostate cancer s/p robotic reconstruction, GERD, hyperlipidemia, pacemaker, and hypertension, who presents to the ED complaining of rectal bleeding. Patient states he woke up this morning, went to bathroom, and noted bright red blood in his diaper. Patient also reports associated lower abdominal pain and diarrhea. Patient recently underwent with zaira-anal abscess incision and drainage with debridement on 12/27/2016 and notes he was recently discharged on 02/12/2017 following treatment for C.diff and colitis. Patient denies any fever, chills, nausea, vomiting, urinary symptoms, back pain, neck pain, chest pain, shortness of breath, or any other complaints. PMD: Dr. Orantes GI: Dr. Javier Mota Medical Tech: Dr. Mora Symptom Onset: Gradual Symptom Course: Unchanged Activities at Onset: Rest, Light Context: Home Past Medical History - Tetanus Immunization Tetanus Immunization: Unknown - Cardiac Hx Cardiac Disorders: Yes Hx Hypertension: Yes - Pulmonary Hx Respiratory Disorders: No - Neurological Hx Neurological Disorder: No - HEENT Hx HEENT Disorder: Yes - Renal Hx Renal Disorder: Yes Other/Comment: renal stent 2014 - Endocrine/Metabolic Hx Endocrine Disorders: No - Hematological/Oncological Hx Blood Disorders: No - Integumentary Hx Dermatological Disorder: Yes Other/Comment: POORLY HEALING SURGICAL WOUND TO BUTOCK - Musculoskeletal/Rheumatological Hx Falls: Yes - Gastrointestinal Hx Gastrointestinal Disorders: No - Genitourinary/Gynecological Hx Genitourinary Disorders: Yes Hx Prostate Problems: Yes - Psychiatric Hx Psychophysiologic Disorder: No Hx Emotional Abuse: No Hx Physical Abuse: No Hx Substance Use: No - Past Surgical History Past Surgical History: No Previous - Surgical History Hx Coronary Stent: Yes Other/Comment: PROSTATE, PICC, RECTAL ABSCESS, BACK SURGERY, RENAL ARTERY STENT - Anesthesia Hx Anesthesia: Yes - Suicidal Assessment Feels Threatened In Home Enviroment: No Family/Social History - Physician Review Nursing Documentation Reviewed: Yes Family/Social History: Unknown Family HX Smoking Status: Former Smoker Hx Alcohol Use: No Hx Substance Use: No Allergies/Home Meds Allergies/Adverse Reactions: Allergies No Known Allergies Allergy (Verified 02/04/17 11:08) Home Medications: Home Meds Medication Instructions Recorded Confirmed rifAXIMin [Xifaxan] 550 mg PO BID 02/27/17 02/27/17 Review of Systems - Physician Review All systems were reviewed & negative as marked: Yes - Review of Systems Constitutional: Normal. absent: Fevers Eyes: Normal ENT: Normal Respiratory: Normal. absent: SOB, Cough Cardiovascular: Normal. absent: Chest Pain Gastrointestinal: Abdominal Pain, Diarrhea, Hematochezia Genitourinary Male: Normal. absent: Dysuria, Frequency, Hematuria, Urinary Output Changes Musculoskeletal: Normal. absent: Back Pain, Neck Pain Skin: Normal. absent: Rash Neurological: Normal. absent: Headache, Dizziness Endocrine: Normal Hemo/Lymphatic: Normal Psychiatric: Normal Physical Exam Vital Signs Reviewed: Yes Vital Signs Temp Pulse Resp BP Pulse Ox 02/27/17 05:48 98.2 F 78 18 132/72 99 Temperature: Afebrile Blood Pressure: Normal Pulse: Regular Respiratory Rate: Normal Appearance: Positive for: Well-Appearing, Non-Toxic, Comfortable Pain Distress: None Mental Status: Positive for: Alert and Oriented X 3 - Systems Exam Head: Present: Atraumatic, Normocephalic Pupils: Present: PERRL Extroacular Muscles: Present: EOMI Conjunctiva: Present: Normal Mouth: Present: Moist Mucous Membranes Neck: Present: Normal Range of Motion Respiratory/Chest: Present: Clear to Auscultation, Good Air Exchange. No: Respiratory Distress, Accessory Muscle Use Cardiovascular: Present: Regular Rate and Rhythm, Normal S1, S2. No: Murmurs Abdomen: Present: Tenderness (LLQ tenderness), Normal Bowel Sounds. No: Distention, Peritoneal Signs Rectal: Present: Other (Bright red blood in rectum, no active bleeding) Back: Present: Normal Inspection Upper Extremity: Present: Normal Inspection. No: Cyanosis, Edema Lower Extremity: Present: Normal Inspection. No: Edema Neurological: Present: GCS=15, CN II-XII Intact, Speech Normal Skin: Present: Warm, Dry, Normal Color. No: Rashes Psychiatric: Present: Alert, Oriented x 3, Normal Insight, Normal Concentration Medical Decision Making ED Course and Treatment: 02/27/17 06:15 Impression: 76 year old male c/o rectal bleeding, lower abdominal pain, and diarrhea tonight. Plan: -- CT Abdomen and Pelvis with PO/IV contrast -- EKG -- CXR -- Labs, lipase, blood type and screen -- IV fluids -- Reassess and disposition Progress Notes: 02/27/17 06:34 Reviewed EKG, 100% paced rhythm at 62 bpm. 02/27/17 07:[address] Manning, pending CT, CXR, labs, re-evaluation, and final disposition. - Lab Interpretations Lab Results: 02/27/17 06:25 02/27/17 06:25 Lab Results 02/27/17 06:25: WBC 7.5, RBC 4.14, Hgb 12.8 L, Hct 37.0 L, MCV 89.4, MCH 30.9, MCHC 34.6, RDW 14.4, Plt Count 298, MPV 10.7 02/27/17 06:25: Sodium 139, Potassium 3.5 L, Chloride 103, Carbon Dioxide 26, Anion Gap 14, BUN 20, Creatinine 1.2, Est GFR ( Amer) > 60, Est GFR (Non- Af Amer) 59, Random Glucose 118 H, Calcium 9.2, Total Bilirubin 0.7, AST 27, ALT 32, Alkaline Phosphatase 63, Total Protein 6.1, Albumin 3.1, Globulin 3.1, Albumin/Globulin Ratio 1.0 L, Lipase 46 02/27/17 06:25: PT 11.7, INR 1.08, APTT 32.2 H - RAD Interpretation Radiology Orders: 02/27/17 06:19 CHEST PORTABLE [RAD] Stat 02/27/17 06:20 ABD PELVIS PO & IV CONTRAST [CT] Stat - EKG Interpretation Interpreted by ED Physician: Yes Type: 12 lead EKG - Medication Orders Current Medication Orders: Sodium Chloride (Sodium Chloride 0.9%) 1,000 mls @ 100 mls/hr IV .Q10H ADRIANNE Last Admin: 02/27/17 06:29 Dose: 100 mls/hr Discontinued Medications Iohexol (Omnipaque 240 (50 Ml)) Confirm Administered Dose 50 ml .ROUTE .STK-MED ONE Stop: 02/27/17 06:29 - Scribe Statement The provider has reviewed the documentation as recorded by the Scribe Heather Messina Provider Scribe Attestation: All medical record entries made by the Scribe were at my direction and personally dictated by me. I have reviewed the chart and agree that the record accurately reflects my personal performance of the history, physical exam, medical decision making, and the department course for this patient. I have also personally directed, reviewed, and agree with the discharge instructions and disposition. Disposition/Present on Arrival - Present on Arrival Any Indicators Present on Arrival: No History of DVT/PE: Yes History of Uncontrolled Diabetes: No Urinary Catheter: No History of Decub. Ulcer: No History Surgical Site Infection Following: None - Disposition Have Diagnosis and Disposition been Completed?: No Diagnosis: Abdominal pain, Lower GI bleed Disposition Time: 06:55 Condition: GOOD
[2017-02-27] MEDS ORDERED: Iohexol 240 (50 ml) ONE (06:28)
[2017-02-27] MEDS: Sodium Chloride 0.9% 1,000 ML IV SCH (06:29)
[2017-02-27 06:38] LABS: MEAN CELL VOLUME 89.4 fL (80.0-105.0); MEAN CORPUSCULAR HEMOGLOBIN 30.9 pg (25.0-35.0); MEAN CORPUSCULAR HGB CONC 34.6 g/dl (31.0-37.0); MEAN PLATELET VOLUME 10.7 fl (7.0-11.0); RED CELL DISTRIBUTION WIDTH 14.4 % (11.5-14.5); WHITE BLOOD COUNT 7.5 10^3/ul (4.5-11.0)
[2017-02-27 06:44] LABS: ALKALINE PHOSPHATASE 63 U/L (38-133); ALT/SGPT 32 U/L (7-56); AST/SGOT 27 U/L (15-59); BILIRUBIN,TOTAL 0.7 mg/dL (0.2-1.3); BLOOD UREA NITROGEN 20 mg/dL (7-21); CALCIUM 9.2 mg/dL (8.4-10.5); CARBON DIOXIDE 26 mmol/L (21-33); CHLORIDE 103 mmol/L (98-107); GFR AFRICAN-AMERICAN > 60; GLUCOSE,RANDOM 118 mg/dL (70-110); INR 1.08 (0.93-1.08); LIPASE 46 U/L (23-300); PARTIAL THROMBOPLASTIN TIME 32.2 Seconds (23.7-30.8); POTASSIUM 3.5 mmol/L (3.6-5.0); SODIUM 139 mmol/L (132-148); TOTAL PROTEIN 6.1 g/dL (5.8-8.3)
--- NOTE | 2017-02-27 07:35 | ED PDOC ---
Physical Exam - Physical Exam Narrative Physical Exam (Text): 02/27/17 11:07 CT scan as read by the radiologist shows improving colitis and abscess with no acute findings 02/27/17 12:18 Discussed with who will admit Vital Signs Temp Pulse Resp BP Pulse Ox 02/27/17 10:29 65 16 138/75 98 02/27/17 05:48 98.2 F 78 18 132/72 99 Medical Decision Making ED Course and Treatment: 02/27/17 07:34 Patient was signed out to me by waiting for CT scan. Patient reports diarrhea for several days. Recent bout of C. difficile. Bloody stool began overnight. He has some mild lower abdominal pain. No fever or chills. His abdomen is soft with plus minus right lower and left lower quadrant tenderness. No guarding and no rebound. CT scan is currently pending. - Lab Interpretations Lab Results: 02/27/17 06:25 02/27/17 06:25 Lab Results 02/27/17 08:38: Blood Type A POSITIVE, Antibody Screen Negative, BBK History Checked Patient has bt 02/27/17 06:25: WBC 7.5, RBC 4.14, Hgb 12.8 L, Hct 37.0 L, MCV 89.4, MCH 30.9, MCHC 34.6, RDW 14.4, Plt Count 298, MPV 10.7 02/27/17 06:25: Sodium 139, Potassium 3.5 L, Chloride 103, Carbon Dioxide 26, Anion Gap 14, BUN 20, Creatinine 1.2, Est GFR ( Amer) > 60, Est GFR (Non- Af Amer) 59, Random Glucose 118 H, Calcium 9.2, Total Bilirubin 0.7, AST 27, ALT 32, Alkaline Phosphatase 63, Total Protein 6.1, Albumin 3.1, Globulin 3.1, Albumin/Globulin Ratio 1.0 L, Lipase 46 02/27/17 06:25: PT 11.7, INR 1.08, APTT 32.2 H - RAD Interpretation Radiology Orders: 02/27/17 06:19 CHEST PORTABLE [RAD] Stat 02/27/17 06:20 ABD PELVIS PO & IV CONTRAST [CT] Stat - Medication Orders Current Medication Orders: Sodium Chloride (Sodium Chloride 0.9%) 1,000 mls @ 100 mls/hr IV .Q10H ADRIANNE Last Admin: 02/27/17 06:29 Dose: 100 mls/hr Discontinued Medications Iohexol (Omnipaque 240 (50 Ml)) Confirm Administered Dose 50 ml .ROUTE .K-MED ONE Stop: 02/27/17 06:29 Disposition/Present on Arrival - Present on Arrival Any Indicators Present on Arrival: No History of DVT/PE: Yes History of Uncontrolled Diabetes: No Urinary Catheter: No History of Decub. Ulcer: No History Surgical Site Infection Following: None - Disposition Have Diagnosis and Disposition been Completed?: Yes Diagnosis: Abdominal pain, Lower GI bleed Disposition: HOSPITALIZED Disposition Time: 11:59 Patient Plan: Observation Patient Problems: Current Active Problems Problem Status Onset Abdominal pain Acute Lower GI bleed Acute Condition: GOOD
--- NOTE | 2017-02-27 10:05 | RAD ---
HISTORY: abdominal pain COMPARISON: 02/04/2017 FINDINGS: LUNGS: No active pulmonary disease. PLEURA: No significant pleural effusion identified, no pneumothorax apparent. CARDIOVASCULAR: Normal. OSSEOUS STRUCTURES: No significant abnormalities. VISUALIZED UPPER ABDOMEN: Normal. OTHER FINDINGS: Single lead pacemaker IMPRESSION: No active disease.
--- NOTE | 2017-02-27 10:46 | CT ---
PROCEDURE: CT Abdomen and Pelvis with contrast HISTORY: left lower abdominal pain COMPARISON: 02/04/2017 TECHNIQUE: Contrast dose: 150 cc of Omni 350 Radiation dose: Total exam DLP = 906 mGy-cm. This CT exam was performed using one or more of the following dose reduction techniques: Automated exposure control, adjustment of the mA and/or kV according to patient size, and/or use of iterative reconstruction technique. FINDINGS: LOWER THORAX: Unremarkable. LIVER: Unremarkable. No gross lesion or ductal dilatation. GALLBLADDER AND BILE DUCTS: Unremarkable. PANCREAS: Unremarkable. No gross lesion or ductal dilatation. SPLEEN: Unremarkable. ADRENALS: Unremarkable. No mass. KIDNEYS AND URETERS: Unremarkable. No hydronephrosis. No solid mass. VASCULATURE: Atherosclerotic changes are seen with mural thrombus in the aorta BOWEL: There is mild mural thickening in the sigmoid colon which has improved since the prior study. There has also been improvement in the left perirectal abscess. APPENDIX: Normal appendix. PERITONEUM: Unremarkable. No free fluid. No free air. LYMPH NODES: Unremarkable. No enlarged lymph nodes. BLADDER: Unremarkable. REPRODUCTIVE: Unremarkable. BONES: No acute fracture. OTHER FINDINGS: None. IMPRESSION: Improvement in mural thickening in the sigmoid colon. Improvement in left perirectal abscess. No acute findings
[2017-02-27 15:35] VITALS: BMI 28.0
[2017-02-27] MEDS ORDERED: Pneumococcal 23-Valent Vaccine IM ONE (15:35)
[2017-02-27] MEDS ORDERED: Enoxaparin 100 mg Syringe SC SCH (15:45)
--- NOTE | 2017-02-27 15:54 | CP.PCM.CON ---
Addendum entered and electronically signed by Kadi Eagle DO 02/27/17 22:29: Procedure note: I&D Left perirectal abscess Written consent was obtained prior to the procedure and all questions answered. Pt. was prepped and draped in sterile fashion. 5cc of 1% Lidocaine with epinephrine was injected into the subcutaneous tissues. An 18-gauge needle was then inserted into the area of fluctuance, several attempts at aspiration were attempted with no resultant purulent fluid. Sterile dressing was applied. Pt tolerated the procedure well. Original Note: <Flory Cat - Last Filed: 02/27/17 15:43> History of Present Illness - History of Present Illness History of Present Illness: General Surgery Dr. Pimentel 76 y/o M w/ PMHx of HTN, HLD, CHF w/ LVEF of 23% presents to the ED c/o BRBPR. Pt states he woke up early this AM to use the restroom and found his undergarments saturated in blood. Pt has never had this before. Pt admits to Hx of hemorrhoids and possible diverticular disease but has never has any problems in the past. Pt was admitted in December w/ ischiorectal abscess which required drainage and multiple debridements. Pt was last here 02/04 and found to have C. Diff colitis for which pt was treated and discharged to home on PO abx. Pt admits to recent diarrhea, different from his bout of C.diff. Pt was prescribed Xifaxan by PMD; after which, pt reports resolution of diarrhea. Pt denies CP, SOB, F/C, N/V, constipation, abd pain, or worsening rectal pain. Pt denies pain w/ BM. PMHx: HTN, CHF, HLD, C. diff, ischiorectal abscess, Carotid stenosis, renal artery stenosis, prostate Ca Meds: reviewed in chart NKDA PSHx: I&D ischiorectal abscess, wound debridement, CEA, pacemaker, renal stent, TURP, cataracts, laminetomy SHx: quit smoking 4yrs ago, 1/2-1ppd x50yrs. denies EtOH, drugs FHx: noncontributory Review of Systems - Review of Systems All systems: reviewed and no additional remarkable complaints except (see HPI) Past Patient History - Tetanus Immunizations Tetanus Immunization: Unknown - Past Medical History & Family History Past Medical History?: Yes - Past Social History Smoking Status: Former Smoker - CARDIAC Hx Cardiac Disorders: Yes (CAD) Hx Congestive Heart Failure: Yes Hx Hypercholesterolemia: Yes Hx Hypertension: Yes Hx Pacemaker: Yes - PULMONARY Hx Respiratory Disorders: Yes (SMOKED CIGARETTES QUIT 2011) Hx Pneumonia: Yes - NEUROLOGICAL Hx Neurological Disorder: Yes Hx Dizziness: Yes - HEENT Hx HEENT Problems: Yes - RENAL Hx Chronic Kidney Disease: Yes Other/Comment: renal stent 2013 - ENDOCRINE/METABOLIC Hx Endocrine Disorders: No - HEMATOLOGICAL/ONCOLOGICAL Hx Blood Disorders: Yes Hx Cancer: Yes (PROSTATE CA WITH ROBOTIC SX) - INTEGUMENTARY Hx Dermatological Problems: Yes Other/Comment: POORLY HEALING SURGICAL WOUND TO BUTOCK - MUSCULOSKELETAL/RHEUMATOLOGICAL Hx Musculoskeletal Disorders: Yes Hx Falls: Yes - GASTROINTESTINAL Hx Gastrointestinal Disorders: Yes (LOWER GI BLEED/RECTAL BLEED,C DIFF COLITIS, SPASTIC COLON,RECTAL ABSCESS,) Hx Diverticulitis: Yes (DIVERTICULOSIS) Hx Gastroesophageal Reflux: Yes Other/Comment: PERIANAL ABSCESS -I/D WITH DEBRIDEMENT 12-27-16 - GENITOURINARY/GYNECOLOGICAL Hx Genitourinary Disorders: Yes (RENAL STENT) Hx Prostate Problems: Yes (PROSTATE CA WITH ROBOTIC SX RECONSTRUCTION) - PSYCHIATRIC Hx Psychophysiologic Disorder: Yes (SMOKED CIGARETTES QUIT 2011) Hx Emotional Abuse: No Hx Physical Abuse: No Hx Substance Use: No - SURGICAL HISTORY Hx Surgeries: Yes Hx Cardiac Catheterization: Yes Hx Coronary Stent: Yes Other/Comment: PROSTATE, PICC, RECTAL ABSCESS, BACK SURGERY, RENAL ARTERY STENT - ANESTHESIA Hx Anesthesia: Yes Meds Allergies/Adverse Reactions: Allergies Allergy/AdvReac Type Severity Reaction Status Date / Time No Known Allergies Allergy Verified 02/27/17 13:22 - Medications Medications: Current Medications Acetaminophen (Tylenol 325mg Tab) 650 mg PO Q6H PRN PRN Reason: Pain, moderate (4-7) Aspirin (Aspirin Chewable) 81 mg PO DAILY [facility] Atorvastatin Calcium (Lipitor) 20 mg PO DIN [facility] Cholestyramine Resin (Questran) 4 gm PO AC [facility] Enoxaparin Sodium (Lovenox) 90 mg SC Q12H [facility] PRN Reason: Protocol Hydrochlorothiazide (Microzide) 12.5 mg PO DAILY [facility] Sodium Chloride (Sodium Chloride 0.9%) 1,000 mls @ 100 mls/hr IV .Q10H [facility] Last Admin: 02/27/17 06:29 Dose: 100 mls/hr Lactobacillus Acidophilus (Bacid Acidophilus) 1 cap PO BID [facility] Losartan Potassium (Cozaar) 100 mg PO DAILY [facility] Ondansetron HCl (Zofran Inj) 4 mg IVP Q4H PRN PRN Reason: Nausea/Vomiting Pantoprazole Sodium (Protonix Ec Tab) 40 mg PO 0600 [facility] Pneumococcal Polyvalent Vaccine (Pneumovax 23 Vaccine) 0.5 ml IM .ONCE ONE Stop: 02/27/17 15:36 Rifaximin (Xifaxan) 550 mg PO BID [facility] PRN Reason: Protocol Physical Exam - Constitutional Appears: Non-toxic, No Acute Distress - Head Exam Head Exam: NORMAL INSPECTION - Eye Exam Eye Exam: Normal appearance - ENT Exam ENT Exam: Mucous Membranes Moist - Respiratory Exam Respiratory Exam: NORMAL BREATHING PATTERN. absent: Accessory Muscle Use, Respiratory Distress - Cardiovascular Exam Cardiovascular Exam: absent: Bradycardia, Tachycardia - GI/Abdominal Exam GI & Abdominal Exam: Soft. absent: Distended, Tenderness - Rectal Exam Rectal Exam: absent: Black Stool, Bloody Stool, Hemorrhoids (no external) Additional comments: dressing bloody. no obvious source of bleeding. wound c/d/i. no purulent material. small area of fluctuance near perineal/ L buttock. - Extremities Exam Extremities exam: Positive for: normal inspection - Neurological Exam Neurological exam: Alert, Oriented x3 - Psychiatric Exam Psychiatric exam: Normal Affect, Normal Mood - Skin Skin Exam: Dry, Normal Color, Warm Results - Vital Signs Recent Vital Signs: Last Vital Signs Temp 98.2 F 02/27/17 15:00 Pulse 65 02/27/17 15:00 Resp 16 02/27/17 15:00 BP 138/75 02/27/17 15:00 Pulse Ox 98 02/27/17 13:45 - Labs Result Diagrams: 02/27/17 06:25 02/27/17 06:25 - Imaging and Cardiology CT scan - abdomen Status: Image reviewed by me, Report reviewed by me Additional comment: Impression: Improvement in mural thickening in the sigmoid colon. Improvement in left perirectal abscess. No acute findings Assessment & Plan - Assessment and Plan (Free Text) Assessment: 76 y/o M w/ BRBPR - FOBT - monitor H/H - avoid long-acting anticoagulants for potential colonoscopy vs OR. - cont home meds - cont medical management per primary - GI/DVT PPx Will discuss w/ Dr. Loren Cat DO PGY2 <Narayan Pimentel - Last Filed: 03/04/17 20:41> Meds - Medications Medications: Current Medications Acetaminophen (Tylenol 325mg Tab) 650 mg PO Q6H PRN PRN Reason: Pain, moderate (4-7) Aspirin (Aspirin Chewable) 81 mg PO DAILY [facility] Last Admin: 03/04/17 09:42 Dose: 81 mg Atorvastatin Calcium (Lipitor) 20 mg PO DIN [facility] Last Admin: 03/04/17 18:29 Dose: 20 mg Heparin Sodium (Porcine) (Heparin) 5,000 units SC Q8 [facility] Stop: 03/04/17 22:01 Last Admin: 03/04/17 16:32 Dose: 5,000 units Heparin Sodium (Porcine) (Heparin) 5,000 units SC Q8 [facility] Hydrochlorothiazide (Microzide) 12.5 mg PO DAILY [facility] Last Admin: 03/04/17 09:42 Dose: 12.5 mg Sodium Chloride (Sodium Chloride 0.9%) 1,000 mls @ 100 mls/hr IV .Q10H [facility] Last Admin: 03/01/17 04:31 Dose: 100 mls/hr Metronidazole (Flagyl) 500 mg in 100 mls @ 100 mls/hr IVPB Q8 [facility] PRN Reason: Protocol Last Admin: 03/04/17 14:12 Dose: 100 mls/hr Lactobacillus Acidophilus (Bacid Acidophilus) 1 cap PO BID [facility] Last Admin: 03/04/17 18:29 Dose: 1 cap Losartan Potassium (Cozaar) 100 mg PO DAILY [facility] Last Admin: 03/04/17 09:42 Dose: 100 mg Multivitamins/Minerals (Therapeutic-M Tab) 1 tab PO 0800 [facility] Last Admin: 03/04/17 09:41 Dose: 1 tab Ondansetron HCl (Zofran Inj) 4 mg IVP Q4H PRN PRN Reason: Nausea/Vomiting Ondansetron HCl (Zofran Inj) 4 mg IVP ONCE PRN PRN Reason: Nausea/Vomiting Pantoprazole Sodium (Protonix Ec Tab) 40 mg PO 0600 [facility] Last Admin: 03/04/17 05:54 Dose: 40 mg Rifaximin (Xifaxan) 550 mg PO BID [facility] PRN Reason: Protocol Last Admin: 03/04/17 18:29 Dose: 550 mg Simethicone (Mylicon Chew Tab) 80 mg PO PCHS PRN PRN Reason: Bloating, gas, abdominal pain Vancomycin HCl (Vancocin 25 Mg/Ml (Oral Use)) 500 mg PO QID [facility] PRN Reason: Protocol Last Admin: 03/04/17 18:29 Dose: 500 mg Results - Vital Signs Recent Vital Signs: Last Vital Signs Temp 97.8 F 03/04/17 16:21 Pulse 75 03/04/17 16:21 Resp 20 03/04/17 16:21 BP 140/71 03/04/17 16:21 Pulse Ox 100 03/04/17 16:21 - Labs Result Diagrams: 03/04/17 06:30 03/04/17 06:30 Labs: Laboratory Results - last 24 hr 03/04/17 03/04/17 03/04/17 06:30 06:30 06:30 WBC 6.6 RBC 3.99 Hgb 12.2 L Hct 35.1 L MCV 88.0 MCH 30.6 MCHC 34.8 RDW 14.0 Plt Count 313 MPV 10.1 Gran % 42.4 L Lymph % (Auto) 44.0 H [place] % (Auto) 9.7 H Eos % (Auto) 3.6 Baso % (Auto) 0.3 Gran # 2.79 Lymph # 2.9 [place] # 0.6 Eos # 0.2 Baso # 0.02 PT 11.7 INR 1.08 APTT Sodium 140 Potassium 4.2 Chloride 107 Carbon Dioxide 26 Anion Gap 11 BUN 11 Creatinine 1.0 Est GFR ( Amer) > 60 Est GFR (Non-Af Amer) > 60 Random Glucose 98 Calcium 9.1 Total Bilirubin 0.4 AST 32 ALT 35 Alkaline Phosphatase 50 Total Protein 5.8 Albumin 2.8 L Globulin 2.9 Albumin/Globulin Ratio 1.0 L 03/04/17 12:30 WBC RBC Hgb Hct MCV MCH MCHC RDW Plt Count MPV Gran % Lymph % (Auto) [place] % (Auto) Eos % (Auto) Baso % (Auto) Gran # Lymph # [place] # Eos # Baso # PT INR APTT 28.6 Sodium Potassium Chloride Carbon Dioxide Anion Gap BUN Creatinine Est GFR ( Amer) Est GFR (Non-Af Amer) Random Glucose Calcium Total Bilirubin AST ALT Alkaline Phosphatase Total Protein Albumin Globulin Albumin/Globulin Ratio Assessment & Plan - Assessment and Plan (Free Text) Plan: Patient was seen and examined by me. I agree with assessment and plan as per resident's note. - Date & Time Date: 02/27/17 Time: 18:25
[2017-02-27] MEDS: Lactobacillus Acidophilus 500 MU Cap PO SCH (17:39)
[2017-02-27] MEDS: Cholestyramine 4 gm/Pkt UD PO SCH (17:39)
[2017-02-27 18:49] LABS: ADD MANUAL DIFF? NO
[2017-02-27 18:52] LABS: BASO # 0.01 K/mm3 (0.0-2.0); BASO % 0.2 % (0.0-3.0); EOS # 0.2 (0.0-0.7); EOS % 3.9 % (1.5-5.0); GRAN # 1.65 (1.4-6.5); GRAN % 35.9 % (50.0-68.0); HEMATOCRIT 34.7 % (42.0-52.0); LYMPH # 2.3 (1.2-3.4); LYMPH % 49.5 % (22.0-35.0); MEAN CELL VOLUME 88.7 fL (80.0-105.0); MEAN CORPUSCULAR HEMOGLOBIN 30.4 pg (25.0-35.0); MEAN CORPUSCULAR HGB CONC 34.3 g/dl (31.0-37.0); MEAN PLATELET VOLUME 10.1 fl (7.0-11.0); MONO # 0.5 (0.1-0.6); MONO % 10.5 % (1.0-6.0); PLATELET COUNT 250 10^3/uL (120.0-450.0); RED CELL DISTRIBUTION WIDTH 14.2 % (11.5-14.5); WHITE BLOOD COUNT 4.6 10^3/ul (4.5-11.0)
[2017-02-27 19:04] LABS: ALB/GLOB RATIO 0.9 (1.1-1.8); ALKALINE PHOSPHATASE 54 U/L (38-133); ALT/SGPT 44 U/L (7-56); AST/SGOT 38 U/L (15-59); BILIRUBIN,TOTAL 0.8 mg/dL (0.2-1.3); BLOOD UREA NITROGEN 17 mg/dL (7-21); CALCIUM 8.8 mg/dL (8.4-10.5); CARBON DIOXIDE 27 mmol/L (21-33); CHLORIDE 101 mmol/L (98-107); GFR AFRICAN-AMERICAN > 60; GLUCOSE,RANDOM 136 mg/dL (70-110); POTASSIUM 3.1 mmol/L (3.6-5.0); SODIUM 137 mmol/L (132-148); TOTAL PROTEIN 6.3 g/dL (5.8-8.3)
--- NOTE | 2017-02-27 19:32 | CARD ---
APPROVED REPORT EKG Measurement Heart [id number] <Conclusion> Electronic ventricular pacemaker
[2017-02-27 19:38] LABS: EOSINOPHIL 5 % (0.0-3.0); NEUTROPHIL 23 % (50.0-70.0); PLATELET ESTIMATE NORMAL (NORMAL)
[2017-02-27] MEDS ORDERED: Lidocaine 1%/Epinephrine 1:100000 30 ml vial IJ ONE (20:16)
[2017-02-27] MEDS ORDERED: HYDROmorphone 1 mg/ml ISec IVP ONE (20:17)
--- NOTE | 2017-02-27 21:37 | CP.PCM.HP ---
<LEANDRA HECK - Last Filed: 02/27/17 21:01> History of Present Illness - History of Present Illness History of Present Illness: Mr. Fernando is a 76 year old male with a past medical history significant for perirectal abscess, C. Diff colitis, DVT, CAD with stent placement, prostate cancer, GERD, hyperlipidemia, 3rd degree AV block, dilated cardiomyopathy, and hypertension who presents to [facility] with complaints of bright red blood after bowel movements and diarrhea. Patient reports that he started to have diarrhea on Sunday (02/25) evening with no inciting meal or event that he can recall. He reported this diarrhea to his PMD, who suggested that the patient start Rifaximin. Patient took one dose on Sunday (02/26) with no relief. This morning around 0500, he noticed bright red blood on his toilet tissue after a bowel movement. He decided to come in to the ED because he wanted to ensure that this wasn't a recurrence of his recent perirectal abscess. After arriving to the ED, he was given a "contrast liquid" to drink that provoked another bowel movement, and again he noticed bright red blood on his toilet tissue. Of note, patient endorses that he has not noticed any blood mixed in with his feces but rather only on toilet tissue. He denies fever, dizziness, changes in vision, weight loss, dysphagia, chest pain, palpitations, shortness of breath, vomiting, or any numbness/tingling/weakness in any of his extremities. PMHx: DVT, CAD with stents in the past,history of prostate cancer with robotic reconstruction (6 yrs ago), GERD, HLD, 3rd degree AV block with PPM, dilated cardiomyopathy, HTN. PSHx: Robotic prostrate cancer reconstruction, PPM, carotid endarterectomy ( last year) Allergies: NKDA Social Hx: former smoker, quit 4 years ago, denies alcohol or illicit drug use Family Hx: noncontributory PMD: Dr. Orantes Present on Admission - Present on Admission Any Indicators Present on Admission: Yes History of DVT/PE: Yes Review of Systems - Review of Systems Review of Systems: refer to HPI Past Patient History - Infectious Disease Hx of Infectious Diseases: C.diff - Tetanus Immunizations Tetanus Immunization: Unknown - Past Medical History & Family History Past Medical History?: Yes - Past Social History Smoking Status: Former Smoker - CARDIAC Hx Cardiac Disorders: Yes (CAD) Hx Congestive Heart Failure: Yes Hx Hypercholesterolemia: Yes Hx Hypertension: Yes Hx Pacemaker: Yes - PULMONARY Hx Respiratory Disorders: Yes (SMOKED CIGARETTES QUIT 2011) Hx Pneumonia: Yes - NEUROLOGICAL Hx Neurological Disorder: Yes Hx Dizziness: Yes - HEENT Hx HEENT Problems: Yes - RENAL Hx Chronic Kidney Disease: Yes Other/Comment: renal stent 2013 - ENDOCRINE/METABOLIC Hx Endocrine Disorders: No - HEMATOLOGICAL/ONCOLOGICAL Hx Blood Disorders: Yes Hx Cancer: Yes (PROSTATE CA WITH ROBOTIC SX) - INTEGUMENTARY Hx Dermatological Problems: Yes Other/Comment: POORLY HEALING SURGICAL WOUND TO BUTOCK - MUSCULOSKELETAL/RHEUMATOLOGICAL Hx Musculoskeletal Disorders: Yes Hx Falls: Yes - GASTROINTESTINAL Hx Gastrointestinal Disorders: Yes (LOWER GI BLEED/RECTAL BLEED,C DIFF COLITIS, SPASTIC COLON,RECTAL ABSCESS,) Hx Diverticulitis: Yes (DIVERTICULOSIS) Hx Gastroesophageal Reflux: Yes Other/Comment: PERIANAL ABSCESS -I/D WITH DEBRIDEMENT 12-27-16 - GENITOURINARY/GYNECOLOGICAL Hx Genitourinary Disorders: Yes (RENAL STENT) Hx Prostate Problems: Yes (PROSTATE CA WITH ROBOTIC SX RECONSTRUCTION) - PSYCHIATRIC Hx Psychophysiologic Disorder: Yes (SMOKED CIGARETTES QUIT 2011) Hx Emotional Abuse: No Hx Physical Abuse: No Hx Substance Use: No - SURGICAL HISTORY Hx Surgeries: Yes Hx Cardiac Catheterization: Yes Hx Coronary Stent: Yes Other/Comment: PROSTATE, PICC, RECTAL ABSCESS, BACK SURGERY, RENAL ARTERY STENT - ANESTHESIA Hx Anesthesia: Yes Meds Allergies/Adverse Reactions: Allergies Allergy/AdvReac Type Severity Reaction Status Date / Time No Known Allergies Allergy Verified 02/27/17 13:22 Physical Exam - Constitutional Appears: No Acute Distress - Head Exam Head Exam: NORMAL INSPECTION, NORMOCEPHALIC - Eye Exam Eye Exam: EOMI, Normal appearance - ENT Exam ENT Exam: Mucous Membranes Moist, Normal Exam - Neck Exam Neck exam: Positive for: Full Rom - Respiratory Exam Respiratory Exam: Clear to Auscultation Bilateral, NORMAL BREATHING PATTERN. absent: Rales, Rhonchi, Wheezes, Respiratory Distress - Cardiovascular Exam Cardiovascular Exam: REGULAR RHYTHM, RRR, +S1, +S2 - GI/Abdominal Exam GI & Abdominal Exam: Normal Bowel Sounds, Tenderness. absent: Distended, Guarding, Mass, Pulsatile Mass, Rebound, Rigid Additional comments: LLQ and RLQ tenderness to palpation - Expanded GI/Abdominal Exam Expanded Expanded GI & Abdominal Exam: absent: McBurney's Point Tenderness - Rectal Exam Additional comments: I&D incision of L anal cleft with good granulation tissue, no purulent drainage , erythema or fluctuance. No blood on exterior rectum. No obvious external hemorrhoids. - Extremities Exam Extremities exam: Negative for: calf tenderness, pedal edema, tenderness - Neurological Exam Neurological exam: Alert, Oriented x3 - Psychiatric Exam Psychiatric exam: Normal Affect, Normal Mood - Skin Skin Exam: Dry, Intact, Normal Color, Warm Results - Vital Signs Recent Vital Signs: Last Vital Signs Temp 97.5 F L 02/27/17 17:52 Pulse 68 02/27/17 17:52 Resp 18 02/27/17 17:52 BP 123/74 02/27/17 17:52 Pulse Ox 99 02/27/17 17:52 - Labs Result Diagrams: 02/27/17 18:30 02/27/17 18:30 Labs: Laboratory Results - last 24 hr 02/27/17 02/27/17 18:30 18:30 WBC 4.6 D RBC 3.91 Hgb 11.9 L Hct 34.7 L MCV 88.7 MCH 30.4 MCHC 34.3 RDW 14.2 Plt Count 250 MPV 10.1 Gran % 35.9 L Lymph % (Auto) 49.5 H [place] % (Auto) 10.5 H Eos % (Auto) 3.9 Baso % (Auto) 0.2 Gran # 1.65 Lymph # 2.3 [place] # 0.5 Eos # 0.2 Baso # 0.01 Neutrophils % (Manual) 23 L Lymphocytes % (Manual) 61 H Monocytes % (Manual) 11 H Eosinophils % (Manual) 5 H Platelet Evaluation Normal Sodium 137 Potassium 3.1 L Chloride 101 Carbon Dioxide 27 Anion Gap 12 BUN 17 Creatinine 1.0 Est GFR ( Amer) > 60 Est GFR (Non-Af Amer) > 60 Random Glucose 136 H Calcium 8.8 Total Bilirubin 0.8 AST 38 ALT 44 Alkaline Phosphatase 54 Total Protein 6.3 Albumin 3.0 Globulin 3.2 Albumin/Globulin Ratio 0.9 L Assessment & Plan - Assessment and Plan (Free Text) Assessment: Mr. Hunter is a 76 year old male who is status post zaira-rectal abscess I&D and C. Diff Colitis in January of 2017 presents with complaints of bright red blood per rectum. Plan: 1. Rectal Bleeding -CT abdomen showed improvement in sigmoid colon mural thickening as well as improvement in left perirectal abscess with no acute findings -GI consulted, all recs appreciated -Surgery consulted, all recs appreciated -Wound care to follow for dressing changes -all anticoagulation medications held at this time -clear liquid diet to allow for mucosal healing -daily CBC's to assess for anemia and blood loss -NS at 100mls/hr -PRN zofran 2. History of DVT -home eliquis held -therapeutic lovenox held -will cont to monitor and resume anticoagulation based on GI and surgery recommendations 3. History of Dilated Cardiomyopathy -PPM -cont home cozaar 4. History of HTN -cont home hydrocholorthiazide 5. History of HLD -cont home questran and lipitor 6. GI Prophylaxis -Protonix Patient and case discussed in detail with attending physician - Date & Time Date: 02/27/17 Time: 15:54 <Woody Sharpe - Last Filed: 03/05/17 17:15> Results - Vital Signs Recent Vital Signs: Last Vital Signs Temp 97.9 F 03/05/17 16:00 Pulse 61 03/05/17 16:00 Resp 20 03/05/17 16:00 BP 112/51 L 03/05/17 16:00 Pulse Ox 97 03/05/17 16:00 - Labs Result Diagrams: 03/05/17 07:05 03/05/17 07:05 Labs: Laboratory Results - last 24 hr 03/05/17 03/05/17 03/05/17 07:05 07:05 07:05 WBC 6.4 RBC 4.14 Hgb 12.4 L Hct 36.1 L MCV 87.2 MCH 30.0 MCHC 34.3 RDW 14.0 Plt Count 336 MPV 9.8 Gran % 43.9 L Lymph % (Auto) 42.1 H [place] % (Auto) 7.4 H Eos % (Auto) 6.3 H Baso % (Auto) 0.3 Gran # 2.80 Lymph # 2.7 [place] # 0.5 Eos # 0.4 Baso # 0.02 PT 12.2 H INR 1.13 H Sodium 140 Potassium 4.1 Chloride 106 Carbon Dioxide 26 Anion Gap 12 BUN 9 Creatinine 1.0 Est GFR ( Amer) > 60 Est GFR (Non-Af Amer) > 60 POC Glucose (mg/dL) Random Glucose 100 Calcium 9.0 Total Bilirubin 0.5 AST 30 ALT 33 Alkaline Phosphatase 51 Total Protein 5.9 Albumin 2.8 L Globulin 3.1 Albumin/Globulin Ratio 0.9 L 03/05/17 07:22 WBC RBC Hgb Hct MCV MCH MCHC RDW Plt Count MPV Gran % Lymph % (Auto) [place] % (Auto) Eos % (Auto) Baso % (Auto) Gran # Lymph # [place] # Eos # Baso # PT INR Sodium Potassium Chloride Carbon Dioxide Anion Gap BUN Creatinine Est GFR ( Amer) Est GFR (Non-Af Amer) POC Glucose (mg/dL) 98 Random Glucose Calcium Total Bilirubin AST ALT Alkaline Phosphatase Total Protein Albumin Globulin Albumin/Globulin Ratio Attending/Attestation - Attestation I have personally seen and examined this patient.: Yes I have fully participated in the care of the patient.: Yes I have reviewed all pertinent clinical information: Yes Notes (Text): 03/05/17 17:14 Medical record note made by the resident after discussion with my direction and input after the patient was personally seen and examined by me. I have reviewed the chart and agree that the record accurately reflects by personal performance of the history, physical exam, data review, and medical decision-making, in the course for the patient. I have also personally directed the plan of care.
[2017-02-28] MEDS: Pantoprazole 40 mg EC Tab PO SCH (05:42)
[2017-02-28 07:45] LABS: ALB/GLOB RATIO 0.9 (1.1-1.8); ALKALINE PHOSPHATASE 51 U/L (38-133); ALT/SGPT 46 U/L (7-56); AST/SGOT 38 U/L (15-59); BILIRUBIN,TOTAL 0.6 mg/dL (0.2-1.3); BLOOD UREA NITROGEN 14 mg/dL (7-21); CALCIUM 8.5 mg/dL (8.4-10.5); CARBON DIOXIDE 26 mmol/L (21-33); CHLORIDE 105 mmol/L (95-110); GFR AFRICAN-AMERICAN > 60; GLUCOSE,RANDOM 89 mg/dL (70-110); POTASSIUM 3.3 mmol/L (3.6-5.0); SODIUM 139 mmol/L (132-148); TOTAL PROTEIN 5.8 g/dL (5.8-8.3)
[2017-02-28] MEDS: Sodium Chloride 0.9% 1,000 ML IV SCH (08:49)
[2017-02-28] MEDS: Lactobacillus Acidophilus 500 MU Cap PO SCH ×2 (10:09→18:41)
[2017-02-28] MEDS: Cholestyramine 4 gm/Pkt UD PO SCH ×2 (10:11→18:41)
[2017-02-28] MEDS: Potassium Chloride 40 mEq/30 ml LIQ UD PO SCH ×2 (10:18→13:49)
[2017-02-28] MEDS: Multivitamin With Minerals Tab PO SCH (10:19)
--- NOTE | 2017-02-28 11:47 | CP.PCM.PN ---
<Flory Cat - Last Filed: 02/28/17 11:41> Subjective - Date & Time of Evaluation Date of Evaluation: 02/28/17 Time of Evaluation: 06:45 - Subjective Subjective: General Surgery Dr. Pimentel Pt S&E @bedside. NAEO. denies N/V, F/C, abd pain, rectal pain. tolerating diet. denies BRBPR since admission. Objective - Vital Signs/Intake and Output Vital Signs (last 24 hours): Temp Pulse Resp BP Pulse Ox 98.6 F 67 20 113/60 96 02/28/17 07:30 02/28/17 07:30 02/28/17 07:30 02/28/17 07:30 02/28/17 07:30 Intake and Output: 02/28/17 02/28/17 06:59 18:59 Intake Total 780 1200 Output Total 400 Balance 380 1200 - Medications Medications: Current Medications Acetaminophen (Tylenol 325mg Tab) 650 mg PO Q6H PRN PRN Reason: Pain, moderate (4-7) Aspirin (Aspirin Chewable) 81 mg PO DAILY [facility] Last Admin: 02/28/17 10:09 Dose: 81 mg Atorvastatin Calcium (Lipitor) 20 mg PO DIN [facility] Last Admin: 02/27/17 17:39 Dose: 20 mg Cholestyramine Resin (Questran) 4 gm PO AC [facility] Last Admin: 02/28/17 10:11 Dose: Not Given Hydrochlorothiazide (Microzide) 12.5 mg PO DAILY [facility] Last Admin: 02/28/17 10:09 Dose: 12.5 mg Sodium Chloride (Sodium Chloride 0.9%) 1,000 mls @ 100 mls/hr IV .Q10H [facility] Last Admin: 02/28/17 08:49 Dose: Not Given Lactobacillus Acidophilus (Bacid Acidophilus) 1 cap PO BID [facility] Last Admin: 02/28/17 10:09 Dose: 1 cap Losartan Potassium (Cozaar) 100 mg PO DAILY [facility] Last Admin: 02/28/17 10:11 Dose: 100 mg Multivitamins/Minerals (Therapeutic-M Tab) 1 tab PO 0800 [facility] Last Admin: 02/28/17 10:19 Dose: 1 tab Ondansetron HCl (Zofran Inj) 4 mg IVP Q4H PRN PRN Reason: Nausea/Vomiting Pantoprazole Sodium (Protonix Ec Tab) 40 mg PO 0600 [facility] Last Admin: 02/28/17 05:42 Dose: 40 mg Potassium Chloride (Potassium Chloride Oral Soln) 40 meq PO Q8 [facility] Stop: 02/28/17 22:01 Last Admin: 02/28/17 10:18 Dose: 40 meq Rifaximin (Xifaxan) 550 mg PO BID [facility] PRN Reason: Protocol Last Admin: 02/28/17 10:09 Dose: 550 mg - Labs Labs: 02/27/17 18:30 02/28/17 07:00 PT 11.7 Seconds (9.9-11.8) 02/27/17 06:25 INR 1.08 (0.93-1.08) 02/27/17 06:25 APTT 32.2 Seconds (23.7-30.8) H 02/27/17 06:25 - Constitutional Appears: Non-toxic, No Acute Distress - Eye Exam Eye Exam: Normal appearance - ENT Exam ENT Exam: Mucous Membranes Moist - Respiratory Exam Respiratory Exam: NORMAL BREATHING PATTERN. absent: Accessory Muscle Use, Respiratory Distress - Cardiovascular Exam Cardiovascular Exam: absent: Bradycardia, Tachycardia - GI/Abdominal Exam GI & Abdominal Exam: Soft. absent: Distended, Tenderness, Rebound - Rectal Exam Rectal Exam: absent: Bloody Stool, Hemorrhoids Additional comments: incision c/d/i. dried blood present. no source of bleeding identified - Extremities Exam Extremities Exam: Normal Inspection - Neurological Exam Neurological Exam: Alert, Awake, Oriented x3 - Psychiatric Exam Psychiatric exam: Normal Affect, Normal Mood - Skin Skin Exam: Dry, Intact, Normal Color, Warm Assessment and Plan - Assessment and Plan (Free Text) Assessment: 76 y/o M w/ BRBPR s/p ischiorectal abscess I&D 12/2016 - hold Eliquis - start therapeutic LVX for DVT Hx - recommend colonoscopy to evaluate source of bleeding - small fluid collection zaira-rectal, seroma vs abscess --> possible bedside I& D this evening - AE nafisa Pt seen and discussed w/ Dr. Loren Cat DO PGY2 <Narayan Pimentel - Last Filed: 03/04/17 20:46> Objective - Vital Signs/Intake and Output Vital Signs (last 24 hours): Temp Pulse Resp BP Pulse Ox 97.8 F 75 20 140/71 100 03/04/17 16:21 03/04/17 16:21 03/04/17 16:21 03/04/17 16:21 03/04/17 16:21 Intake and Output: 03/04/17 03/05/17 18:59 06:59 Intake Total 840 Balance 840 - Medications Medications: Current Medications Acetaminophen (Tylenol 325mg Tab) 650 mg PO Q6H PRN PRN Reason: Pain, moderate (4-7) Aspirin (Aspirin Chewable) 81 mg PO DAILY [facility] Last Admin: 03/04/17 09:42 Dose: 81 mg Atorvastatin Calcium (Lipitor) 20 mg PO DIN [facility] Last Admin: 03/04/17 18:29 Dose: 20 mg Heparin Sodium (Porcine) (Heparin) 5,000 units SC Q8 [facility] Stop: 03/04/17 22:01 Last Admin: 03/04/17 16:32 Dose: 5,000 units Heparin Sodium (Porcine) (Heparin) 5,000 units SC Q8 [facility] Hydrochlorothiazide (Microzide) 12.5 mg PO DAILY [facility] Last Admin: 03/04/17 09:42 Dose: 12.5 mg Sodium Chloride (Sodium Chloride 0.9%) 1,000 mls @ 100 mls/hr IV .Q10H [facility] Last Admin: 03/01/17 04:31 Dose: 100 mls/hr Metronidazole (Flagyl) 500 mg in 100 mls @ 100 mls/hr IVPB Q8 [facility] PRN Reason: Protocol Last Admin: 03/04/17 14:12 Dose: 100 mls/hr Lactobacillus Acidophilus (Bacid Acidophilus) 1 cap PO BID [facility] Last Admin: 03/04/17 18:29 Dose: 1 cap Losartan Potassium (Cozaar) 100 mg PO DAILY [facility] Last Admin: 03/04/17 09:42 Dose: 100 mg Multivitamins/Minerals (Therapeutic-M Tab) 1 tab PO 0800 [facility] Last Admin: 03/04/17 09:41 Dose: 1 tab Ondansetron HCl (Zofran Inj) 4 mg IVP Q4H PRN PRN Reason: Nausea/Vomiting Ondansetron HCl (Zofran Inj) 4 mg IVP ONCE PRN PRN Reason: Nausea/Vomiting Pantoprazole Sodium (Protonix Ec Tab) 40 mg PO 0600 [facility] Last Admin: 03/04/17 05:54 Dose: 40 mg Rifaximin (Xifaxan) 550 mg PO BID [facility] PRN Reason: Protocol Last Admin: 03/04/17 18:29 Dose: 550 mg Simethicone (Mylicon Chew Tab) 80 mg PO [facility] PRN PRN Reason: Bloating, gas, abdominal pain Vancomycin HCl (Vancocin 25 Mg/Ml (Oral Use)) 500 mg PO QID [facility] PRN Reason: Protocol Last Admin: 03/04/17 18:29 Dose: 500 mg - Labs Labs: 03/04/17 06:30 03/04/17 06:30 PT 11.7 Seconds (9.9-11.8) 03/04/17 06:30 INR 1.08 (0.93-1.08) 03/04/17 06:30 APTT 28.6 Seconds (23.7-30.8) 03/04/17 12:30 Assessment and Plan - Assessment and Plan (Free Text) Plan: Patient was seen and examined by me. I agree with assessment and plan as per resident's note. Given the amount of swelling of the left buttock and the finding of a collection on the CT scan, I will proceed with drainage of the abscess in the operating room under anesthesia.
[2017-02-28] MEDS ORDERED: Simethicone 80 mg Chewtab PO PRN (12:59)
[2017-02-28 15:25] LABS: ADD MANUAL DIFF? NO
--- NOTE | 2017-02-28 15:46 | CON ---
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 PAST MEDICAL HISTORY: Significant for perirectal abscess, DVT, coronary artery disease, prostate cancer, acid reflux, cardiomyopathy. There is a recent hospital event associated with a perirectal abscess, the patient had been on antibiotic therapy and was reported to have initiation of very severe diarrhea several days ago. Diarrhea was refractory to outpatient therapy. He noted within a period of 24 hours prior to admission significant amount of bright red blood on toilet bowl. He subsequently came to the emergency room and was admitted. The patient denies any abdominal pain or perirenal pain at bedside. PHYSICAL EXAMINATION VITAL SIGNS: I reviewed this patient's vital signs. HEENT: Noncontributory. LUNGS: Clear to auscultation. At the apex decreased breath sounds. HEART: Irregular rhythm. ABDOMEN: Soft and no tenderness elicited. LABORATORY DATA: I reviewed this patient's laboratory data. Evaluation of radiology in this particular case indicates improvement in a mural thickening of the sigmoid colon. Perirectal abscess which was explored on previous admission has improved dramatically. The H and H on admission of this particular patient was 12.8/37, subsequent value later on was 12/34.7. OVERALL ASSESSMENT: This is a 76-year-old with a history of perirectal abscess, admitted with diarrhea, probably secondary to Clostridium difficile and bright red blood per rectum. Initially during the early time period of diarrhea, note that there was no bleeding, however, this subsequently started within short time period before admission to the hospital. One has to assume in this particular case, there is probably a rectal mucosal tear secondary to extreme diarrhea. Since the patient has been on Eliquis for coronary artery disease issues, this can produce substantial amount of rectal bleeding.I reviewed this case with Dr. Jarrett in detail yesterday. The main concern was initiation of Lovenox therapy in addition to Eliquis given the patient's clinical status. I reviewed this case with the nurse on the floor this morning. The bleeding has decreased dramatically. The patient has minimal perianal pain. The orders appear adequate at the current point of time. Advised Dr. Jarrett to discuss the anticoagulation issue with surgical house staff. Evaluation of the patient's orders include aspirin as well as probiotics, analgesics, Protonix, IV fluids. The diet was subsequently changed from heart healthy to liquid diet. Rationale for change of diet is to help the presumed rectal mucosal tears to heal up somewhat over the next day or two. If the bleeding is still diminutive, we might consider advancing diet possibly tomorrow or the day after. After this particular time, since I discussed the major issues with the house staff, there is really not too much for me to offer more in this particular case. Treatment for presumed C. diff will continue, although I do not see any laboratory data to corroborate C. diff at the current point in time. Alpesh Boo DO, PhD MTDD
[2017-02-28] MEDS ORDERED: Propofol 10 mg/ml Inj (20 ML) ONE (16:04)
[2017-02-28] MEDS ORDERED: Midazolam 2 MG/2 ML VIAL ONE (16:05)
[2017-02-28] MEDS ORDERED: Bupivacaine 0.5% Inj(30mL) ONE (16:20)
[2017-02-28] MEDS ORDERED: ceFAZolin 2 GM in Sodium Chloride 0.9% 100 ML IVPB SCH (16:31)
[2017-02-28 16:47] LABS: INR 1.05 (0.93-1.08)
[2017-02-28] MEDS ORDERED: Lactated Ringer's 1,000 ML IV SCH (17:07)
[2017-02-28] MEDS ORDERED: HYDROmorphone 0.5 mg/0.5 ml ISec IVP PRN (17:07)
--- NOTE | 2017-02-28 17:09 | PCM.SURG1 ---
Surgeon's Initial Post Op Note - Surgeon's Notes Surgeon: Dr. Pimentel Media Analyst: Dr. Luu PGY2, Dr. Layton PGY1 Type of Anesthesia: General LMA Pre-Operative Diagnosis: Perianal abscess Operative Findings: smooth tract left lateral of anus 7cm deep Post-Operative Diagnosis: same Operation Performed: Rectal exam under anesthesia. Ultrasound guided localization and depth invasion. Incision and drainage of abscess Specimen/Specimens Removed: none Estimated Blood Loss: EBL {In ML}: 2 Drains Used: No Drains Post-Op Condition: Good Date of Surgery/Procedure: 02/28/17 Time of Surgery/Procedure: 04:20
[2017-02-28 18:47] LABS: GRAN % 60.1 % (50.0-68.0); HEMATOCRIT 35.8 % (42.0-52.0); LYMPH % 28.4 % (22.0-35.0); MEAN CELL VOLUME 90.4 fL (80.0-105.0); MEAN CORPUSCULAR HEMOGLOBIN 30.6 pg (25.0-35.0); MEAN CORPUSCULAR HGB CONC 33.8 g/dl (31.0-37.0); MEAN PLATELET VOLUME 11.5 fl (7.0-11.0); MONO % 8.6 % (1.0-6.0); PLATELET COUNT 295 10^3/uL (120.0-450.0); RED CELL DISTRIBUTION WIDTH 14.4 % (11.5-14.5); WHITE BLOOD COUNT 7.3 10^3/ul (4.5-11.0)
[2017-02-28 18:48] LABS: BASO # 0.01 K/mm3 (0.0-2.0); BASO % 0.1 % (0.0-3.0); EOS # 0.2 (0.0-0.7); EOS % 2.8 % (1.5-5.0); GRAN # 4.36 (1.4-6.5); LYMPH # 2.1 (1.2-3.4); MONO # 0.6 (0.1-0.6)
--- NOTE | 2017-02-28 19:00 | CP.PCM.PN ---
Addendum entered and electronically signed by Arais Lim DO 03/02/17 09:39: Patient was seen and examined and case was discussed at length with Dr. Duran. Patient off AC 2/2 surgery. Had preliminary discussion with patient about future anticoagulant use vs bleeding risks. Patient wants to think about continuing AC and we will discuss more after his surgery. C Diff pending. Arias Lim D.O. PGY-2 Original Note: <MARY DURAN - Last Filed: 03/01/17 17:21> Subjective - Date & Time of Evaluation Date of Evaluation: 02/28/17 Time of Evaluation: 06:45 - Subjective Subjective: Mary Duran DO PGY1 - Internal Medicine Progress Note - Dedousis/Adaniel Service Patient seen and evaluated at bedside. He was admitted yesterday after coming to the ER complaining of bright red blood per rectum and diarrhea. His diarrhea improved after taking rifaximin from PMD. He continues to have bleeding with bowel movements. He denies abdominal pain, diarrhea, constipation, fever, chills , CP, SOB. Objective - Vital Signs/Intake and Output Vital Signs (last 24 hours): Temp Pulse Resp BP Pulse Ox 97.3 F L 60 15 128/55 L 98 02/28/17 17:59 02/28/17 17:59 02/28/17 17:59 02/28/17 17:59 02/28/17 17:59 Intake and Output: 02/28/17 02/28/17 06:59 18:59 Intake Total 600 Balance 600 - Medications Medications: Current Medications Acetaminophen (Tylenol 325mg Tab) 650 mg PO Q6H PRN PRN Reason: Pain, moderate (4-7) Aspirin (Aspirin Chewable) 81 mg PO DAILY [facility] Last Admin: 02/28/17 10:09 Dose: 81 mg Atorvastatin Calcium (Lipitor) 20 mg PO DIN [facility] Last Admin: 02/27/17 17:39 Dose: 20 mg Cholestyramine Resin (Questran) 4 gm PO AC [facility] Last Admin: 02/28/17 10:11 Dose: Not Given Hydrochlorothiazide (Microzide) 12.5 mg PO DAILY [facility] Last Admin: 02/28/17 10:09 Dose: 12.5 mg Hydromorphone HCl (Dilaudid) 0.5 mg IVP Q15M PRN PRN Reason: Pain, moderate (4-7) Stop: 02/28/17 19:07 Sodium Chloride (Sodium Chloride 0.9%) 1,000 mls @ 100 mls/hr IV .Q10H [facility] Last Admin: 02/28/17 08:49 Dose: Not Given Cefazolin Sodium 2 gm/ Sodium (Chloride) 100 mls @ 200 mls/hr IVPB STAT [facility] PRN Reason: Protocol Lactated Ringer's (Lactated Ringer's) 1,000 mls @ 75 mls/hr IV .[id number] [facility] Stop: 02/28/17 19:08 Cefazolin Sodium (Ancef 1gm In Ns) 1 gm in 100 mls @ 200 mls/hr IVPB Q8 [facility] Lactobacillus Acidophilus (Bacid Acidophilus) 1 cap PO BID [facility] Last Admin: 02/28/17 10:09 Dose: 1 cap Losartan Potassium (Cozaar) 100 mg PO DAILY [facility] Last Admin: 02/28/17 10:11 Dose: 100 mg Multivitamins/Minerals (Therapeutic-M Tab) 1 tab PO 0800 [facility] Last Admin: 02/28/17 10:19 Dose: 1 tab Ondansetron HCl (Zofran Inj) 4 mg IVP Q4H PRN PRN Reason: Nausea/Vomiting Ondansetron HCl (Zofran Inj) 4 mg IVP ONCE PRN PRN Reason: Nausea/Vomiting Pantoprazole Sodium (Protonix Ec Tab) 40 mg PO 0600 [facility] Last Admin: 02/28/17 05:42 Dose: 40 mg Potassium Chloride (Potassium Chloride Oral Soln) 40 meq PO Q8 [facility] Stop: 02/28/17 22:01 Last Admin: 02/28/17 13:49 Dose: 40 meq Rifaximin (Xifaxan) 550 mg PO BID [facility] PRN Reason: Protocol Last Admin: 02/28/17 10:09 Dose: 550 mg Simethicone (Mylicon Chew Tab) 80 mg PO [facility] PRN PRN Reason: Bloating, gas, abdominal pain - Labs Labs: 02/28/17 15:24 PT 11.3 Seconds (9.9-11.8) 02/28/17 15:24 INR 1.05 (0.93-1.08) 02/28/17 15:24 APTT 32.2 Seconds (23.7-30.8) H 02/27/17 06:25 - Constitutional Appears: Non-toxic, No Acute Distress - Head Exam Head Exam: ATRAUMATIC, NORMOCEPHALIC - Eye Exam Eye Exam: EOMI, Normal appearance - ENT Exam ENT Exam: Mucous Membranes Moist, Normal Exam - Neck Exam Neck Exam: Normal Inspection. absent: Lymphadenopathy - Respiratory Exam Respiratory Exam: Clear to Ausculation Bilateral. absent: Rales, Rhonchi, Wheezes - Cardiovascular Exam Cardiovascular Exam: RRR, +S1, +S2 - GI/Abdominal Exam GI & Abdominal Exam: Soft, Normal Bowel Sounds. absent: Tenderness - Rectal Exam Additional comments: Prior incision clean and dry, no purulence. Mild erythema, no fluctuance. Dried blood around anus, and on bedsheets and hospital gown. - Extremities Exam Extremities Exam: Normal Inspection. absent: Calf Tenderness, Pedal Edema - Back Exam Back Exam: NORMAL INSPECTION - Neurological Exam Neurological Exam: Alert, Awake, Normal Gait, Oriented x3 - Psychiatric Exam Psychiatric exam: Normal Affect, Normal Mood - Skin Skin Exam: Dry, Intact Assessment and Plan - Assessment and Plan (Free Text) Assessment: Mr. Hunter is a 76 year old male with PMH of DVT, CAD s/p stent, GERD, HLD, and HTN who is status post zaira-rectal abscess I&D and C. Diff Colitis in January of 2017 presents with complaints of bright red blood per rectum. Plan: 1. Rectal Bleeding - CT abdomen showed improvement in sigmoid colon mural thickening as well as improvement in left perirectal abscess with no acute findings - Surgery consulted, all recs appreciated - GI consulted, all recs appreciated - All anticoagulation medications held at this time, pending surgery - Clear liquid diet to allow for mucosal healing - Daily CBC's to assess for anemia and blood loss - NS at 100mls/hr - PRN zofran, simethicone - Start probiotics, MVI, simethicone. Continue Rifaximin. - Order C diff toxin and antigen testing of stool 2. 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 History of Dilated Cardiomyopathy - PPM - Continue home cozaar 4. History of HTN - Continue home hydrocholorthiazide 5. History of HLD - Continue home questran and lipitor GI Ppx - Protonix Patient and case discussed in detail with attending physician <Woody Sharpe - Last Filed: 03/05/17 17:17> Objective - Vital Signs/Intake and Output Vital Signs (last 24 hours): Temp Pulse Resp BP Pulse Ox 97.9 F 61 20 112/51 L 97 03/05/17 16:00 03/05/17 16:00 03/05/17 16:00 03/05/17 16:00 03/05/17 16:00 Intake and Output: 03/05/17 03/05/17 06:59 18:59 Intake Total 980 0 Balance 980 0 - Medications Medications: Current Medications Acetaminophen (Tylenol 325mg Tab) 650 mg PO Q6H PRN PRN Reason: Pain, moderate (4-7) Aspirin (Aspirin Chewable) 81 mg PO DAILY [facility] Last Admin: 03/05/17 10:57 Dose: Not Given Atorvastatin Calcium (Lipitor) 20 mg PO DIN [facility] Last Admin: 03/04/17 18:29 Dose: 20 mg Heparin Sodium (Porcine) (Heparin) 5,000 units SC Q8 [facility] Hydrochlorothiazide (Microzide) 12.5 mg PO DAILY [facility] Last Admin: 03/05/17 10:57 Dose: Not Given Metronidazole (Flagyl) 500 mg in 100 mls @ 100 mls/hr IVPB Q8 [facility] PRN Reason: Protocol Last Admin: 03/05/17 15:18 Dose: 100 mls/hr Sodium Chloride (Sodium Chloride 0.9%) 1,000 mls @ 100 mls/hr IV .Q10H [facility] Last Admin: 03/05/17 13:00 Dose: 100 mls/hr Lactobacillus Acidophilus (Bacid Acidophilus) 1 cap PO BID [facility] Last Admin: 03/05/17 10:57 Dose: Not Given Losartan Potassium (Cozaar) 100 mg PO DAILY [facility] Last Admin: 03/05/17 10:57 Dose: Not Given Multivitamins/Minerals (Therapeutic-M Tab) 1 tab PO 0800 [facility] Last Admin: 03/05/17 08:11 Dose: Not Given Ondansetron HCl (Zofran Inj) 4 mg IVP Q4H PRN PRN Reason: Nausea/Vomiting Ondansetron HCl (Zofran Inj) 4 mg IVP ONCE PRN PRN Reason: Nausea/Vomiting Pantoprazole Sodium (Protonix Ec Tab) 40 mg PO 0600 [facility] Last Admin: 03/05/17 05:43 Dose: 40 mg Rifaximin (Xifaxan) 550 mg PO BID [facility] PRN Reason: Protocol Last Admin: 03/05/17 10:57 Dose: Not Given Simethicone (Mylicon Chew Tab) 80 mg PO [facility] PRN PRN Reason: Bloating, gas, abdominal pain Vancomycin HCl (Vancocin 25 Mg/Ml (Oral Use)) 500 mg PO QID [facility] PRN Reason: Protocol Last Admin: 03/05/17 15:20 Dose: 500 mg - Labs Labs: 03/05/17 07:05 03/05/17 07:05 PT 12.2 Seconds (9.9-11.8) H 03/05/17 07:05 INR 1.13 (0.93-1.08) H 03/05/17 07:05 APTT 28.6 Seconds (23.7-30.8) 03/04/17 12:30 Attending/Attestation - Attestation I have personally seen and examined this patient.: Yes I have fully participated in the care of the patient.: Yes I have reviewed all pertinent clinical information, including history, physical exam and plan: Yes Notes (Text): 03/05/17 17:17 Medical record note made by the resident after discussion with my direction and input after the patient was personally seen and examined by me. I have reviewed the chart and agree that the record accurately reflects by personal performance of the history, physical exam, data review, and medical decision-making, in the course for the patient. I have also personally directed the plan of care.
[2017-02-28] MEDS: ceFAZolin 1 gm in NS 1 GM/100 ML BAG IVPB SCH (21:22)
[2017-02-28] MEDS ORDERED: ceFAZolin 1 gm in NS 1 GM/100 ML BAG IVPB SCH (22:00)
[2017-03-01] MEDS: Sodium Chloride 0.9% 1,000 ML IV SCH (04:31)
[2017-03-01] MEDS: ceFAZolin 1 gm in NS 1 GM/100 ML BAG IVPB SCH ×3 (05:35→22:34)
[2017-03-01] MEDS: Pantoprazole 40 mg EC Tab PO SCH (06:20)
[2017-03-01 07:45] LABS: ALKALINE PHOSPHATASE 50 U/L (38-133); ALT/SGPT 37 U/L (7-56); AST/SGOT 28 U/L (15-59); BILIRUBIN,TOTAL 0.4 mg/dL (0.2-1.3); BLOOD UREA NITROGEN 14 mg/dL (7-21); CALCIUM 8.3 mg/dL (8.4-10.5); CARBON DIOXIDE 22 mmol/L (21-33); CHLORIDE 106 mmol/L (95-110); GFR AFRICAN-AMERICAN > 60; GLUCOSE,RANDOM 142 mg/dL (70-110); POTASSIUM 3.9 mmol/L (3.6-5.0); SODIUM 138 mmol/L (132-148); TOTAL PROTEIN 5.8 g/dL (5.8-8.3)
[2017-03-01 07:47] LABS: ALB/GLOB RATIO 0.9 (1.1-1.8)
--- NOTE | 2017-03-01 07:50 | CP.PCM.PN ---
<Alvarez Luu - Last Filed: 03/01/17 07:46> Subjective - Date & Time of Evaluation Date of Evaluation: 03/01/17 Time of Evaluation: 07:47 - Subjective Subjective: SURGERY NOTE FOR DR. PIMENTEL 76M seen and examined at bedside. Patient states pain is much less. NAEON. Patient changed at bedside. No further bleeding. Objective - Vital Signs/Intake and Output Vital Signs (last 24 hours): Temp Pulse Resp BP Pulse Ox 97.3 F L 60 15 128/55 L 98 02/28/17 17:59 02/28/17 17:59 02/28/17 17:59 02/28/17 17:59 02/28/17 17:59 Intake and Output: 03/01/17 03/01/17 06:59 18:59 Intake Total 2640 Output Total 100 Balance 2540 - Medications Medications: Current Medications Acetaminophen (Tylenol 325mg Tab) 650 mg PO Q6H PRN PRN Reason: Pain, moderate (4-7) Aspirin (Aspirin Chewable) 81 mg PO DAILY [facility] Last Admin: 02/28/17 10:09 Dose: 81 mg Atorvastatin Calcium (Lipitor) 20 mg PO DIN [facility] Last Admin: 02/28/17 18:41 Dose: 20 mg Cholestyramine Resin (Questran) 4 gm PO AC [facility] Last Admin: 02/28/17 18:41 Dose: Not Given Hydrochlorothiazide (Microzide) 12.5 mg PO DAILY [facility] Last Admin: 02/28/17 10:09 Dose: 12.5 mg Sodium Chloride (Sodium Chloride 0.9%) 1,000 mls @ 100 mls/hr IV .Q10H [facility] Last Admin: 03/01/17 04:31 Dose: 100 mls/hr Cefazolin Sodium 2 gm/ Sodium (Chloride) 100 mls @ 200 mls/hr IVPB STAT [facility] PRN Reason: Protocol Last Admin: 02/28/17 18:41 Dose: Not Given Cefazolin Sodium (Ancef 1gm In Ns) 1 gm in 100 mls @ 200 mls/hr IVPB Q8 [facility] Last Admin: 03/01/17 05:35 Dose: 200 mls/hr Lactobacillus Acidophilus (Bacid Acidophilus) 1 cap PO BID [facility] Last Admin: 02/28/17 18:41 Dose: 1 cap Losartan Potassium (Cozaar) 100 mg PO DAILY [facility] Last Admin: 02/28/17 10:11 Dose: 100 mg Multivitamins/Minerals (Therapeutic-M Tab) 1 tab PO 0800 [facility] Last Admin: 02/28/17 10:19 Dose: 1 tab Ondansetron HCl (Zofran Inj) 4 mg IVP Q4H PRN PRN Reason: Nausea/Vomiting Ondansetron HCl (Zofran Inj) 4 mg IVP ONCE PRN PRN Reason: Nausea/Vomiting Pantoprazole Sodium (Protonix Ec Tab) 40 mg PO 0600 [facility] Last Admin: 03/01/17 06:20 Dose: 40 mg Rifaximin (Xifaxan) 550 mg PO BID [facility] PRN Reason: Protocol Last Admin: 02/28/17 18:41 Dose: 550 mg Simethicone (Mylicon Chew Tab) 80 mg PO [facility] PRN PRN Reason: Bloating, gas, abdominal pain - Labs Labs: 02/28/17 15:24 02/28/17 15:24 PT 11.3 Seconds (9.9-11.8) 02/28/17 15:24 INR 1.05 (0.93-1.08) 02/28/17 15:24 APTT 32.2 Seconds (23.7-30.8) H 02/27/17 06:25 - Constitutional Appears: Non-toxic, No Acute Distress - Respiratory Exam Respiratory Exam: Clear to Ausculation Bilateral, NORMAL BREATHING PATTERN - Cardiovascular Exam Cardiovascular Exam: REGULAR RHYTHM, +S1, +S2 - Rectal Exam Additional comments: site of I&D examined. Packing removed and repacked, dressed with gauze and tape. Previous dressing was stained with serosang/purulent material. - Neurological Exam Neurological Exam: Alert, Awake Assessment and Plan - Assessment and Plan (Free Text) Assessment: 76F s/p perirectal abscess incision and drainage POD1 Plan: - packing changes - Dressing changes - Continue antibiotics - resume Eliquis in 2 days Further recs discuss with Dr. Loren Luu, PGY2 <Narayan Pimentel - Last Filed: 03/04/17 20:47> Objective - Vital Signs/Intake and Output Vital Signs (last 24 hours): Temp Pulse Resp BP Pulse Ox 97.8 F 75 20 140/71 100 03/04/17 16:21 03/04/17 16:21 03/04/17 16:21 03/04/17 16:21 03/04/17 16:21 Intake and Output: 03/04/17 03/05/17 18:59 06:59 Intake Total 840 Balance 840 - Medications Medications: Current Medications Acetaminophen (Tylenol 325mg Tab) 650 mg PO Q6H PRN PRN Reason: Pain, moderate (4-7) Aspirin (Aspirin Chewable) 81 mg PO DAILY [facility] Last Admin: 03/04/17 09:42 Dose: 81 mg Atorvastatin Calcium (Lipitor) 20 mg PO DIN [facility] Last Admin: 03/04/17 18:29 Dose: 20 mg Heparin Sodium (Porcine) (Heparin) 5,000 units SC Q8 [facility] Stop: 03/04/17 22:01 Last Admin: 03/04/17 16:32 Dose: 5,000 units Heparin Sodium (Porcine) (Heparin) 5,000 units SC Q8 [facility] Hydrochlorothiazide (Microzide) 12.5 mg PO DAILY [facility] Last Admin: 03/04/17 09:42 Dose: 12.5 mg Sodium Chloride (Sodium Chloride 0.9%) 1,000 mls @ 100 mls/hr IV .Q10H [facility] Last Admin: 03/01/17 04:31 Dose: 100 mls/hr Metronidazole (Flagyl) 500 mg in 100 mls @ 100 mls/hr IVPB Q8 [facility] PRN Reason: Protocol Last Admin: 03/04/17 14:12 Dose: 100 mls/hr Lactobacillus Acidophilus (Bacid Acidophilus) 1 cap PO BID [facility] Last Admin: 03/04/17 18:29 Dose: 1 cap Losartan Potassium (Cozaar) 100 mg PO DAILY [facility] Last Admin: 03/04/17 09:42 Dose: 100 mg Multivitamins/Minerals (Therapeutic-M Tab) 1 tab PO 0800 [facility] Last Admin: 03/04/17 09:41 Dose: 1 tab Ondansetron HCl (Zofran Inj) 4 mg IVP Q4H PRN PRN Reason: Nausea/Vomiting Ondansetron HCl (Zofran Inj) 4 mg IVP ONCE PRN PRN Reason: Nausea/Vomiting Pantoprazole Sodium (Protonix Ec Tab) 40 mg PO 0600 [facility] Last Admin: 03/04/17 05:54 Dose: 40 mg Rifaximin (Xifaxan) 550 mg PO BID [facility] PRN Reason: Protocol Last Admin: 03/04/17 18:29 Dose: 550 mg Simethicone (Mylicon Chew Tab) 80 mg PO [facility] PRN PRN Reason: Bloating, gas, abdominal pain Vancomycin HCl (Vancocin 25 Mg/Ml (Oral Use)) 500 mg PO QID [facility] PRN Reason: Protocol Last Admin: 03/04/17 18:29 Dose: 500 mg - Labs Labs: 03/04/17 06:30 03/04/17 06:30 PT 11.7 Seconds (9.9-11.8) 03/04/17 06:30 INR 1.08 (0.93-1.08) 03/04/17 06:30 APTT 28.6 Seconds (23.7-30.8) 03/04/17 12:30 Assessment and Plan - Assessment and Plan (Free Text) Plan: Patient was seen and examined by me. I agree with assessment and plan as per resident's note.
[2017-03-01] MEDS: Lactobacillus Acidophilus 500 MU Cap PO SCH ×2 (10:11→17:00)
[2017-03-01] MEDS: Multivitamin With Minerals Tab PO SCH (10:12)
[2017-03-01] MEDS: Cholestyramine 4 gm/Pkt UD PO SCH ×2 (10:16→17:05)
--- NOTE | 2017-03-01 11:26 | CP.PCM.PN ---
Addendum entered and electronically signed by Arias Lim DO 03/02/17 09:43: Patient was seen and examined and case was discussed at length with Dr. Duran. Patient doing well post operatively. Still off AC. Will discuss with IR about possible IVC filter as after extended discussion with patient he is concerned about continued bleeding. Arias Lim D.O. PGY-2 Original Note: <MARY DURAN - Last Filed: 03/01/17 17:22> Subjective - Date & Time of Evaluation Date of Evaluation: 03/01/17 Time of Evaluation: 06:45 - Subjective Subjective: Mary Duran DO PGY1 - Internal Medicine Progress Note - [facility] Patient seen and evaluated at bedside. No acute events overnight reported, but yesterday afternoon, he had surgery for I&D of perirectal abscess. He feels more comfortable today after the surgery, but continues to see blood when he wipes. He reports no episodes of diarrhea today, but started to have gas and bloating after restarting solid diet. He denies abdominal pain, diarrhea, constipation, fever, chills, CP, SOB. He was also seen by GI yesterday who recommended against colonoscopy or EGD, but he is requesting a second opinion, specifically asking for Dr. Jay, on the advice of his daughter. Objective - Vital Signs/Intake and Output Vital Signs (last 24 hours): Temp Pulse Resp BP Pulse Ox 97.6 F 64 20 110/58 L 95 03/01/17 07:30 03/01/17 07:30 03/01/17 07:30 03/01/17 07:30 03/01/17 07:30 Intake and Output: 03/01/17 03/01/17 06:59 18:59 Intake Total 2640 Output Total 100 Balance 2540 - Medications Medications: Current Medications Acetaminophen (Tylenol 325mg Tab) 650 mg PO Q6H PRN PRN Reason: Pain, moderate (4-7) Aspirin (Aspirin Chewable) 81 mg PO DAILY [facility] Last Admin: 03/01/17 10:11 Dose: 81 mg Atorvastatin Calcium (Lipitor) 20 mg PO DIN [facility] Last Admin: 02/28/17 18:41 Dose: 20 mg Cholestyramine Resin (Questran) 4 gm PO AC [facility] Last Admin: 03/01/17 10:16 Dose: 4 gm Hydrochlorothiazide (Microzide) 12.5 mg PO DAILY [facility] Last Admin: 03/01/17 10:11 Dose: 12.5 mg Sodium Chloride (Sodium Chloride 0.9%) 1,000 mls @ 100 mls/hr IV .Q10H [facility] Last Admin: 03/01/17 04:31 Dose: 100 mls/hr Cefazolin Sodium 2 gm/ Sodium (Chloride) 100 mls @ 200 mls/hr IVPB STAT [facility] PRN Reason: Protocol Last Admin: 02/28/17 18:41 Dose: Not Given Cefazolin Sodium (Ancef 1gm In Ns) 1 gm in 100 mls @ 200 mls/hr IVPB Q8 [facility] Last Admin: 03/01/17 05:35 Dose: 200 mls/hr Lactobacillus Acidophilus (Bacid Acidophilus) 1 cap PO BID [facility] Last Admin: 03/01/17 10:11 Dose: 1 cap Losartan Potassium (Cozaar) 100 mg PO DAILY [facility] Last Admin: 03/01/17 10:11 Dose: 100 mg Multivitamins/Minerals (Therapeutic-M Tab) 1 tab PO 0800 [facility] Last Admin: 03/01/17 10:12 Dose: 1 tab Ondansetron HCl (Zofran Inj) 4 mg IVP Q4H PRN PRN Reason: Nausea/Vomiting Ondansetron HCl (Zofran Inj) 4 mg IVP ONCE PRN PRN Reason: Nausea/Vomiting Pantoprazole Sodium (Protonix Ec Tab) 40 mg PO 0600 [facility] Last Admin: 03/01/17 06:20 Dose: 40 mg Rifaximin (Xifaxan) 550 mg PO BID [facility] PRN Reason: Protocol Last Admin: 03/01/17 10:11 Dose: 550 mg Simethicone (Mylicon Chew Tab) 80 mg PO [facility] PRN PRN Reason: Bloating, gas, abdominal pain - Labs Labs: 02/28/17 15:24 03/01/17 07:15 PT 11.3 Seconds (9.9-11.8) 02/28/17 15:24 INR 1.05 (0.93-1.08) 02/28/17 15:24 APTT 32.2 Seconds (23.7-30.8) H 02/27/17 06:25 - Constitutional Appears: Non-toxic, No Acute Distress - Head Exam Head Exam: ATRAUMATIC, NORMOCEPHALIC - Eye Exam Eye Exam: EOMI, Normal appearance - ENT Exam ENT Exam: Mucous Membranes Moist - Neck Exam Neck Exam: Normal Inspection - Respiratory Exam Respiratory Exam: Clear to Ausculation Bilateral. absent: Rales, Rhonchi, Wheezes - Cardiovascular Exam Cardiovascular Exam: RRR, +S1, +S2 - GI/Abdominal Exam GI & Abdominal Exam: Soft, Normal Bowel Sounds. absent: Distended, Firm, Guarding, Rigid, Tenderness - Rectal Exam Additional comments: Wound dressed with gauze and tape, stained with serosanguinous material. - Extremities Exam Extremities Exam: absent: Calf Tenderness, Pedal Edema - Back Exam Back Exam: NORMAL INSPECTION - Neurological Exam Neurological Exam: Alert, Awake, Oriented x3 - Psychiatric Exam Psychiatric exam: Normal Affect, Normal Mood - Skin Skin Exam: Dry, Intact Assessment and Plan - Assessment and Plan (Free Text) Assessment: Mr. Hunter is a 76 year old male with PMH of DVT, CAD s/p stent, GERD, HLD, and HTN who is status post zaira-rectal abscess I&D and C. Diff Colitis in January of 2017 presents with complaints of bright red blood per rectum. s/p Incision and drainage of perirectal abscess POD 1. Also being treated for diarrhea. Plan: 1. Rectal Bleeding - Perirectal abscess vs mucosal tear vs anal fissure - CT abdomen showed improvement in sigmoid colon mural thickening as well as improvement in left perirectal abscess with no acute findings - Surgery consulted, all recs appreciated; s/p I&D perirectal abscess POD 1; BID dressing changes; Started Ancef - GI consulted, all recs appreciated - All anticoagulation medications held at this time, pending IR consultation ( see below) - Daily CBC's to assess for anemia and blood loss - Hold NS at 100mls/hr (see below) - Heart healthy diet 2. Diarrhea - C. difficile confirmed - Stool positive for C. difficile antigen and toxin - Continue Rifaximin, Lactobacillus, simethicone, zofran - Contact precautions 3. History of DVT - Patient has a history of chronic DVT, was previously on Eliquis, which was held due to GI bleed and pre/zaira/postoperatively. Patient is concerned about risks of bleeding on anticoagulants because of his current GI bleed, and asked about IVC filters - Surgery recommends restart eliquis in 2 days - Consult IR (Mathew) to evaluate for IVC filter - IVF held to enable patient to ambulate comfortably, recommended frequently OOB to ambulate - Ppx with SCD - Continue home ASA 4. History of Dilated Cardiomyopathy - PPM - Continue home cozaar 5. History of HTN - Continue home hydrocholorthiazide 6. History of HLD - Continue home questran and lipitor GI Ppx - Protonix Patient and case discussed in detail with senior resident and attending physician <Bowen Orantes - Last Filed: 03/22/17 08:56> Objective - Vital Signs/Intake and Output Vital Signs (last 24 hours): Temp Pulse Resp BP Pulse Ox 97.9 F 72 20 122/59 L 98 03/06/17 16:00 03/06/17 16:00 03/06/17 16:00 03/06/17 16:00 03/06/17 16:00 - Labs Labs: 03/06/17 07:00 03/06/17 07:00 PT 12.2 Seconds (9.9-11.8) H 03/05/17 07:05 INR 1.13 (0.93-1.08) H 03/05/17 07:05 APTT 28.6 Seconds (23.7-30.8) 03/04/17 12:30 Attending/Attestation - Attestation I have personally seen and examined this patient.: Yes I have fully participated in the care of the patient.: Yes I have reviewed all pertinent clinical information, including history, physical exam and plan: Yes Notes (Text): 03/22/17 08:56 Medical record note made by the resident done after discussion with my direction and input after the patient was personally seen by me. I have reviewed the chart and agree that the record accurately reflects my personal history, physical, data review, decision making and course for the patient.
[2017-03-01 15:29] LABS: ADD MANUAL DIFF? NO
[2017-03-01 15:32] LABS: BASO # 0.01 K/mm3 (0.0-2.0); BASO % 0.1 % (0.0-3.0); GRAN # 5.97 (1.4-6.5); GRAN % 69.6 % (50.0-68.0); HEMATOCRIT 31.1 % (42.0-52.0); LYMPH # 1.7 (1.2-3.4); LYMPH % 19.3 % (22.0-35.0); MEAN CELL VOLUME 87.1 fL (80.0-105.0); MEAN CORPUSCULAR HGB CONC 34.4 g/dl (31.0-37.0); MEAN PLATELET VOLUME 10.2 fl (7.0-11.0); MONO # 0.9 (0.1-0.6); PLATELET COUNT 277 10^3/uL (120.0-450.0); RED CELL DISTRIBUTION WIDTH 13.8 % (11.5-14.5); WHITE BLOOD COUNT 8.6 10^3/ul (4.5-11.0)
[2017-03-01 15:40] LABS: INR 1.07 (0.93-1.08)
[2017-03-01] MEDS ORDERED: Morphine 2 mg/ml ISec IVP STA (16:06)
[2017-03-01] MEDS ORDERED: Morphine 4 mg/ml ISec IVP STA (16:06)
[2017-03-02] MEDS: metroNIDAZOLE IV 500 mg/100 ml 500 MG/100 ML BAG IVPB SCH ×4 (00:28→21:26)
[2017-03-02] MEDS: Pantoprazole 40 mg EC Tab PO SCH (05:52)
[2017-03-02] MEDS ORDERED: Morphine 4 mg/ml ISec IVP PRN (07:00)
[2017-03-02 07:33] LABS: ALB/GLOB RATIO 0.9 (1.1-1.8); ALKALINE PHOSPHATASE 46 U/L (38-133); ALT/SGPT 30 U/L (7-56); AST/SGOT 22 U/L (15-59); BILIRUBIN,TOTAL 0.2 mg/dL (0.2-1.3); BLOOD UREA NITROGEN 14 mg/dL (7-21); CALCIUM 8.3 mg/dL (8.4-10.5); CARBON DIOXIDE 24 mmol/L (21-33); CHLORIDE 109 mmol/L (98-107); GFR AFRICAN-AMERICAN > 60; GLUCOSE,RANDOM 105 mg/dL (70-110); POTASSIUM 3.5 mmol/L (3.6-5.0); SODIUM 139 mmol/L (132-148); TOTAL PROTEIN 5.6 g/dL (5.8-8.3)
[2017-03-02] MEDS ORDERED: Morphine 4 mg/ml ISec IVP STA (07:44)
--- NOTE | 2017-03-02 08:56 | CP.PCM.PN ---
<Ramon Palm - Last Filed: 03/02/17 09:02> Subjective - Date & Time of Evaluation Date of Evaluation: 03/02/17 Time of Evaluation: 08:55 - Subjective Subjective: General Surgery Dr. Pimentel Patient seen and examined at bedside this morning. No acute events overnight. Patient states his pain is well controlled. No further bleeding. Objective - Vital Signs/Intake and Output Vital Signs (last 24 hours): Temp Pulse Resp BP Pulse Ox 98.7 F 67 20 112/61 97 03/02/17 08:00 03/02/17 08:00 03/02/17 08:00 03/02/17 08:00 03/02/17 08:00 Intake and Output: 03/02/17 03/02/17 06:59 18:59 Intake Total 960 Output Total 350 Balance 610 - Medications Medications: Current Medications Acetaminophen (Tylenol 325mg Tab) 650 mg PO Q6H PRN PRN Reason: Pain, moderate (4-7) Aspirin (Aspirin Chewable) 81 mg PO DAILY [facility] Last Admin: 03/01/17 10:11 Dose: 81 mg Atorvastatin Calcium (Lipitor) 20 mg PO DIN [facility] Last Admin: 03/01/17 16:22 Dose: 20 mg Cholestyramine Resin (Questran) 4 gm PO AC [facility] Last Admin: 03/01/17 17:05 Dose: 4 gm Hydrochlorothiazide (Microzide) 12.5 mg PO DAILY [facility] Last Admin: 03/01/17 10:11 Dose: 12.5 mg Sodium Chloride (Sodium Chloride 0.9%) 1,000 mls @ 100 mls/hr IV .Q10H [facility] Last Admin: 03/01/17 04:31 Dose: 100 mls/hr Metronidazole (Flagyl) 500 mg in 100 mls @ 100 mls/hr IVPB Q8 [facility] PRN Reason: Protocol Last Admin: 03/02/17 05:51 Dose: 100 mls/hr Lactobacillus Acidophilus (Bacid Acidophilus) 1 cap PO BID [facility] Last Admin: 03/01/17 17:00 Dose: 1 cap Losartan Potassium (Cozaar) 100 mg PO DAILY [facility] Last Admin: 03/01/17 10:11 Dose: 100 mg Multivitamins/Minerals (Therapeutic-M Tab) 1 tab PO 0800 [facility] Last Admin: 03/01/17 10:12 Dose: 1 tab Ondansetron HCl (Zofran Inj) 4 mg IVP Q4H PRN PRN Reason: Nausea/Vomiting Ondansetron HCl (Zofran Inj) 4 mg IVP ONCE PRN PRN Reason: Nausea/Vomiting Pantoprazole Sodium (Protonix Ec Tab) 40 mg PO 0600 [facility] Last Admin: 03/02/17 05:52 Dose: 40 mg Rifaximin (Xifaxan) 550 mg PO BID [facility] PRN Reason: Protocol Last Admin: 03/01/17 17:00 Dose: 550 mg Simethicone (Mylicon Chew Tab) 80 mg PO [facility] PRN PRN Reason: Bloating, gas, abdominal pain Vancomycin HCl (Vancocin 25 Mg/Ml (Oral Use)) 500 mg PO QID [facility] PRN Reason: Protocol - Labs Labs: 03/01/17 15:28 03/02/17 06:35 PT 11.6 Seconds (9.9-11.8) 03/01/17 15:28 INR 1.07 (0.93-1.08) 03/01/17 15:28 APTT 32.2 Seconds (23.7-30.8) H 02/27/17 06:25 - Constitutional Appears: Non-toxic, No Acute Distress - ENT Exam ENT Exam: Mucous Membranes Moist - Respiratory Exam Respiratory Exam: NORMAL BREATHING PATTERN. absent: Accessory Muscle Use, Respiratory Distress - Cardiovascular Exam Cardiovascular Exam: REGULAR RHYTHM - Neurological Exam Neurological Exam: Alert, Awake, Oriented x3 - Skin Additional comments: I&D site examined. Dressing and packing were removed and replaced at bedside this AM. Previous dressing was stained with some serosanguinous/purulent discharge. Assessment and Plan - Assessment and Plan (Free Text) Assessment: 76F s/p perirectal abscess incision and drainage POD2 Plan: Packing/Dressing changes BID Continue antibiotics Resume Eliquis tomorrow 03/[address] Loren Navarro Arpita PGY 1 <Narayan Pimentel - Last Filed: 03/04/17 20:47> Objective - Vital Signs/Intake and Output Vital Signs (last 24 hours): Temp Pulse Resp BP Pulse Ox 97.8 F 75 20 140/71 100 03/04/17 16:21 03/04/17 16:21 03/04/17 16:21 03/04/17 16:21 03/04/17 16:21 Intake and Output: 03/04/17 03/05/17 18:59 06:59 Intake Total 840 Balance 840 - Medications Medications: Current Medications Acetaminophen (Tylenol 325mg Tab) 650 mg PO Q6H PRN PRN Reason: Pain, moderate (4-7) Aspirin (Aspirin Chewable) 81 mg PO DAILY [facility] Last Admin: 03/04/17 09:42 Dose: 81 mg Atorvastatin Calcium (Lipitor) 20 mg PO DIN [facility] Last Admin: 03/04/17 18:29 Dose: 20 mg Heparin Sodium (Porcine) (Heparin) 5,000 units SC Q8 [facility] Stop: 03/04/17 22:01 Last Admin: 03/04/17 16:32 Dose: 5,000 units Heparin Sodium (Porcine) (Heparin) 5,000 units SC Q8 [facility] Hydrochlorothiazide (Microzide) 12.5 mg PO DAILY [facility] Last Admin: 03/04/17 09:42 Dose: 12.5 mg Sodium Chloride (Sodium Chloride 0.9%) 1,000 mls @ 100 mls/hr IV .Q10H [facility] Last Admin: 03/01/17 04:31 Dose: 100 mls/hr Metronidazole (Flagyl) 500 mg in 100 mls @ 100 mls/hr IVPB Q8 [facility] PRN Reason: Protocol Last Admin: 03/04/17 14:12 Dose: 100 mls/hr Lactobacillus Acidophilus (Bacid Acidophilus) 1 cap PO BID [facility] Last Admin: 03/04/17 18:29 Dose: 1 cap Losartan Potassium (Cozaar) 100 mg PO DAILY [facility] Last Admin: 03/04/17 09:42 Dose: 100 mg Multivitamins/Minerals (Therapeutic-M Tab) 1 tab PO 0800 [facility] Last Admin: 03/04/17 09:41 Dose: 1 tab Ondansetron HCl (Zofran Inj) 4 mg IVP Q4H PRN PRN Reason: Nausea/Vomiting Ondansetron HCl (Zofran Inj) 4 mg IVP ONCE PRN PRN Reason: Nausea/Vomiting Pantoprazole Sodium (Protonix Ec Tab) 40 mg PO 0600 [facility] Last Admin: 03/04/17 05:54 Dose: 40 mg Rifaximin (Xifaxan) 550 mg PO BID [facility] PRN Reason: Protocol Last Admin: 03/04/17 18:29 Dose: 550 mg Simethicone (Mylicon Chew Tab) 80 mg PO [facility] PRN PRN Reason: Bloating, gas, abdominal pain Vancomycin HCl (Vancocin 25 Mg/Ml (Oral Use)) 500 mg PO QID [facility] PRN Reason: Protocol Last Admin: 03/04/17 18:29 Dose: 500 mg - Labs Labs: 03/04/17 06:30 03/04/17 06:30 PT 11.7 Seconds (9.9-11.8) 03/04/17 06:30 INR 1.08 (0.93-1.08) 03/04/17 06:30 APTT 28.6 Seconds (23.7-30.8) 03/04/17 12:30 Assessment and Plan - Assessment and Plan (Free Text) Plan: Patient was seen and examined by me. I agree with assessment and plan as per resident's note.
[2017-03-02] MEDS: Multivitamin With Minerals Tab PO SCH (09:15)
[2017-03-02] MEDS: Cholestyramine 4 gm/Pkt UD PO SCH ×3 (09:16→16:47)
[2017-03-02] MEDS: Lactobacillus Acidophilus 500 MU Cap PO SCH ×2 (09:16→17:39)
[2017-03-02] MEDS: Vancomycin 25 MG/ML PO SCH ×4 (09:20→21:27)
[2017-03-02 10:02] LABS: ADD MANUAL DIFF? NO
[2017-03-02 10:05] LABS: BASO # 0.01 K/mm3 (0.0-2.0); BASO % 0.2 % (0.0-3.0); EOS # 0.1 (0.0-0.7); EOS % 1.7 % (1.5-5.0); GRAN # 2.38 (1.4-6.5); GRAN % 44.1 % (50.0-68.0); HEMATOCRIT 32.2 % (42.0-52.0); LYMPH # 2.4 (1.2-3.4); LYMPH % 43.6 % (22.0-35.0); MEAN CELL VOLUME 89.2 fL (80.0-105.0); MEAN CORPUSCULAR HEMOGLOBIN 30.2 pg (25.0-35.0); MEAN CORPUSCULAR HGB CONC 33.9 g/dl (31.0-37.0); MEAN PLATELET VOLUME 10.4 fl (7.0-11.0); MONO # 0.6 (0.1-0.6); MONO % 10.4 % (1.0-6.0); PLATELET COUNT 255 10^3/uL (120.0-450.0); WHITE BLOOD COUNT 5.4 10^3/ul (4.5-11.0)
[2017-03-02 10:27] LABS: INR 1.05 (0.93-1.08)
--- NOTE | 2017-03-02 10:36 | CP.PCM.PN ---
Addendum entered and electronically signed by Arias Lim DO 03/05/17 13:15: Patient was seen and examined and case was discussed with Dr. Duran. Patient having issues with both perirectal abscess and rectal bleeding and now found to be C. Diff positive. On appropriate abx. This is now recurrence number 2. Currently off AC. Arias Lim D.O. PGY-2 Original Note: <MARY DURAN - Last Filed: 03/02/17 13:26> Subjective - Date & Time of Evaluation Date of Evaluation: 03/02/17 Time of Evaluation: 06:45 - Subjective Subjective: Mary Duran DO PGY1 - Internal Medicine Progress Note - Dedousis/Adaniel Service Patient seen and evaluated at bedside. No acute events overnight reported. He is s/p I&D of perirectal abscess, POD-2. He denies any pain. Yesterday, he started having diarrhea again after restarting solid diet, and last BM was 4 AM today, soft not watery. He denies abdominal pain, constipation, fever, chills, CP, SOB. Objective - Vital Signs/Intake and Output Vital Signs (last 24 hours): Temp Pulse Resp BP Pulse Ox 98.7 F 67 20 112/61 97 03/02/17 08:00 03/02/17 08:00 03/02/17 08:00 03/02/17 08:00 03/02/17 08:00 Intake and Output: 03/02/17 03/02/17 06:59 18:59 Intake Total 960 Output Total 350 Balance 610 - Medications Medications: Current Medications Acetaminophen (Tylenol 325mg Tab) 650 mg PO Q6H PRN PRN Reason: Pain, moderate (4-7) Aspirin (Aspirin Chewable) 81 mg PO DAILY [facility] Last Admin: 03/02/17 09:16 Dose: 81 mg Atorvastatin Calcium (Lipitor) 20 mg PO DIN [facility] Last Admin: 03/01/17 16:22 Dose: 20 mg Cholestyramine Resin (Questran) 4 gm PO AC [facility] Last Admin: 03/02/17 09:16 Dose: 4 gm Hydrochlorothiazide (Microzide) 12.5 mg PO DAILY [facility] Last Admin: 03/02/17 09:16 Dose: 12.5 mg Sodium Chloride (Sodium Chloride 0.9%) 1,000 mls @ 100 mls/hr IV .Q10H [facility] Last Admin: 03/01/17 04:31 Dose: 100 mls/hr Metronidazole (Flagyl) 500 mg in 100 mls @ 100 mls/hr IVPB Q8 [facility] PRN Reason: Protocol Last Admin: 03/02/17 05:51 Dose: 100 mls/hr Lactobacillus Acidophilus (Bacid Acidophilus) 1 cap PO BID [facility] Last Admin: 03/02/17 09:16 Dose: 1 cap Losartan Potassium (Cozaar) 100 mg PO DAILY [facility] Last Admin: 03/02/17 09:16 Dose: 100 mg Multivitamins/Minerals (Therapeutic-M Tab) 1 tab PO 0800 [facility] Last Admin: 03/02/17 09:15 Dose: 1 tab Ondansetron HCl (Zofran Inj) 4 mg IVP Q4H PRN PRN Reason: Nausea/Vomiting Ondansetron HCl (Zofran Inj) 4 mg IVP ONCE PRN PRN Reason: Nausea/Vomiting Pantoprazole Sodium (Protonix Ec Tab) 40 mg PO 0600 [facility] Last Admin: 03/02/17 05:52 Dose: 40 mg Rifaximin (Xifaxan) 550 mg PO BID [facility] PRN Reason: Protocol Last Admin: 03/02/17 09:16 Dose: 550 mg Simethicone (Mylicon Chew Tab) 80 mg PO [facility] PRN PRN Reason: Bloating, gas, abdominal pain Vancomycin HCl (Vancocin 25 Mg/Ml (Oral Use)) 500 mg PO QID [facility] PRN Reason: Protocol Last Admin: 03/02/17 09:20 Dose: 500 mg - Labs Labs: 03/02/17 09:00 03/02/17 06:35 PT 11.6 Seconds (9.9-11.8) 03/01/17 15:28 INR 1.07 (0.93-1.08) 03/01/17 15:28 APTT 32.2 Seconds (23.7-30.8) H 02/27/17 06:25 - Constitutional Appears: Non-toxic, No Acute Distress - Head Exam Head Exam: ATRAUMATIC, NORMOCEPHALIC - Eye Exam Eye Exam: EOMI, Normal appearance - ENT Exam ENT Exam: Mucous Membranes Moist - Neck Exam Neck Exam: Normal Inspection. absent: Lymphadenopathy, Meningismus - Respiratory Exam Respiratory Exam: Clear to Ausculation Bilateral. absent: Rales, Rhonchi, Wheezes - Cardiovascular Exam Cardiovascular Exam: RRR, +S1, +S2 - GI/Abdominal Exam GI & Abdominal Exam: Soft, Normal Bowel Sounds. absent: Distended, Firm, Guarding, Rigid, Tenderness, Rebound - Extremities Exam Extremities Exam: Normal Inspection - Back Exam Back Exam: absent: CVA tenderness (L), CVA tenderness (R) - Neurological Exam Neurological Exam: Alert, Awake, Oriented x3 - Psychiatric Exam Psychiatric exam: Normal Affect, Normal Mood - Skin Skin Exam: Dry, Intact, Normal Color Assessment and Plan - Assessment and Plan (Free Text) Assessment: Mr. Hunter is a 76 year old male with PMH of DVT, CAD s/p stent, GERD, HLD, and HTN who is status post zaira-rectal abscess I&D and C. Diff Colitis in January of 2017 presents with complaints of bright red blood per rectum. s/p Incision and drainage of perirectal abscess POD 2. Also being treated for diarrhea. Plan: 1. Rectal Bleeding - Perirectal abscess vs mucosal tear vs anal fissure - Surgery consulted, all recs appreciated; s/p I&D perirectal abscess POD 2; BID dressing changes; Completed Ancef - GI consulted (Misty), all recs appreciated - All anticoagulation medications held at this time, pending IR consultation ( see below) - Daily CBC's to assess for anemia and blood loss - Hold NS at 100mls/hr (see below) - Heart healthy diet 2. Diarrhea - C. difficile confirmed - Stool positive for C. difficile antigen and toxin - Continue Rifaximin, Lactobacillus, simethicone, zofran, multivitamin - Started on Vancomycin by surgical team - Consult ID (Bebe) for 2nd recurrence of C. diff diarrhea - Contact precautions 3. History of DVT - Patient has a history of chronic DVT, was previously on Eliquis, which was held due to GI bleed and pre/zaira/postoperatively. Patient is concerned about risks of bleeding on anticoagulants because of his current GI bleed, and asked about IVC filter - Surgery recommends restart eliquis tomorrow - Consult IR (Mathew) to evaluate for IVC filter; recommended lower extremity doppler to assess current state of DVT, will have done today - IVF held to enable patient to ambulate comfortably, recommended frequently OOB to ambulate - Ppx with SCD - Continue home ASA 4. Hypokalemia - Patient originally came in hypokalemic, likely 2/2 to diarrhea. Potassium was repleted with PO KCl, now low again likely 2/2 to continued diarrhea - Replete with KCl tabs 40 mEq PO QD x3d - Continue to monitor 5. Anemia - Likely postoperative vs dilutional vs 2/2 GI bleed - Hemodynamically stable, asymptomatic - Will monitor for now. No iron supplement at this time to avoid constipation with known C. diff colitis 6. History of Dilated Cardiomyopathy and HTN - PPM - Continue home cozaar and hydrocholorthiazide 7. History of HLD - Continue home questran and lipitor GI Ppx - Protonix Patient and case discussed in detail with senior resident and attending physician <Woody Sharpe - Last Filed: 03/05/17 17:32> Objective - Vital Signs/Intake and Output Vital Signs (last 24 hours): Temp Pulse Resp BP Pulse Ox 97.9 F 61 20 112/51 L 97 03/05/17 16:00 03/05/17 16:00 03/05/17 16:00 03/05/17 16:00 03/05/17 16:00 Intake and Output: 03/05/17 03/05/17 06:59 18:59 Intake Total 980 0 Balance 980 0 - Medications Medications: Current Medications Acetaminophen (Tylenol 325mg Tab) 650 mg PO Q6H PRN PRN Reason: Pain, moderate (4-7) Aspirin (Aspirin Chewable) 81 mg PO DAILY [facility] Last Admin: 03/05/17 10:57 Dose: Not Given Atorvastatin Calcium (Lipitor) 20 mg PO DIN [facility] Last Admin: 03/04/17 18:29 Dose: 20 mg Heparin Sodium (Porcine) (Heparin) 5,000 units SC Q8 [facility] Hydrochlorothiazide (Microzide) 12.5 mg PO DAILY [facility] Last Admin: 03/05/17 10:57 Dose: Not Given Metronidazole (Flagyl) 500 mg in 100 mls @ 100 mls/hr IVPB Q8 [facility] PRN Reason: Protocol Last Admin: 03/05/17 15:18 Dose: 100 mls/hr Sodium Chloride (Sodium Chloride 0.9%) 1,000 mls @ 100 mls/hr IV .Q10H [facility] Last Admin: 03/05/17 13:00 Dose: 100 mls/hr Lactobacillus Acidophilus (Bacid Acidophilus) 1 cap PO BID [facility] Last Admin: 03/05/17 10:57 Dose: Not Given Losartan Potassium (Cozaar) 100 mg PO DAILY [facility] Last Admin: 03/05/17 10:57 Dose: Not Given Multivitamins/Minerals (Therapeutic-M Tab) 1 tab PO 0800 [facility] Last Admin: 03/05/17 08:11 Dose: Not Given Ondansetron HCl (Zofran Inj) 4 mg IVP Q4H PRN PRN Reason: Nausea/Vomiting Ondansetron HCl (Zofran Inj) 4 mg IVP ONCE PRN PRN Reason: Nausea/Vomiting Pantoprazole Sodium (Protonix Ec Tab) 40 mg PO 0600 [facility] Last Admin: 03/05/17 05:43 Dose: 40 mg Rifaximin (Xifaxan) 550 mg PO BID [facility] PRN Reason: Protocol Last Admin: 03/05/17 10:57 Dose: Not Given Simethicone (Mylicon Chew Tab) 80 mg PO HS PRN PRN Reason: Bloating, gas, abdominal pain Vancomycin HCl (Vancocin 25 Mg/Ml (Oral Use)) 500 mg PO QID [facility] PRN Reason: Protocol Last Admin: 03/05/17 15:20 Dose: 500 mg - Labs Labs: 03/05/17 07:05 03/05/17 07:05 PT 12.2 Seconds (9.9-11.8) H 03/05/17 07:05 INR 1.13 (0.93-1.08) H 03/05/17 07:05 APTT 28.6 Seconds (23.7-30.8) 03/04/17 12:30 Attending/Attestation - Attestation I have personally seen and examined this patient.: Yes I have fully participated in the care of the patient.: Yes I have reviewed all pertinent clinical information, including history, physical exam and plan: Yes Notes (Text): 03/05/17 17:32 Medical record note made by the resident after discussion with my direction and input after the patient was personally seen and examined by me. I have reviewed the chart and agree that the record accurately reflects by personal performance of the history, physical exam, data review, and medical decision-making, in the course for the patient. I have also personally directed the plan of care.
--- NOTE | 2017-03-02 11:19 | US ---
HISTORY: Leg pain and swelling. Evaluate for DVT PHYSICIAN(S): Spencer Carmona MD. TECHNIQUE: Duplex sonography and color-flow Doppler with graded compression were used to evaluate the deep venous systems of both lower extremities. FINDINGS: Once again, subacute DVT is noted in the visualized tibial veins bilaterally. No proximal extension is appreciated. The popliteal veins, femoral veins, and common femoral veins are normal and compressible. IMPRESSION: Bilateral isolated tibial DVT. No proximal extension is appreciated. A follow-up venous ultrasound is recommended in 7-10 days.
[2017-03-02] MEDS: Potassium Chloride 20 mEq ER Tab PO SCH (13:45)
[2017-03-02] MEDS ORDERED: Morphine 2 mg/ml ISec IVP ONE (15:47)
--- NOTE | 2017-03-02 16:14 | CP.PCM.CON ---
<Emilia Lemons - Last Filed: 03/02/17 17:34> History of Present Illness - History of Present Illness History of Present Illness: seen and examined, chart reviewed earlier today. Request for consult is for second opinion rectal bleed, ?scope HPI: This a 76-year-old male with a past medical history of DVT on Elaquis, coronary artery disease with stent placement, prostate cancer, GERD with history of zaira rectal abcess status post recent I&D on 02/27. this patient was here in December 31 for issue a rectal abscess that was drained and appreciated. An on 02/04/2017 patient was in the hospital found to have C. difficile was treated with antibiotics and sent home. He still was having diarrhea and was given outpatient treatment with Xifaxan which improved a little bit and then patient on 02/26 notice bright red blood in the toilet tissue after bowel movement.The patient came to the emergency room. The patient denies nausea, vomiting or abdominal pain, he did have a bowel movement earlier this morning that was slightly deformed but not bloody. Patient had a CT scan on 02/27 with IV and oral contrast he reports that the thickening in the sigmoid appears better as well as her left perirectal abscess. He is still ahs discomfort, but bleeding is less, he is off Eliquis. His last colon was with Dr. Mota on 01/2016 , found to have diverticulosis and internal hemorrhiods. Had stool Cdiff is positive toxin and antigen, started on oral Vancomycin. Past medical history: DVT, coronary artery disease with stents, history of prostate cancer with robotic reconstruction, GERD, diverticulosis, hyperlipidemia, third-degree AV block with PPM, dilated cardiomyopathy, hypertension Surgical history: Robotic prostate cancer reconstruction, permanent pacemaker, carotid endarterectomy, colonoscopy 01/2016 Social history: Former smoker, quit 4 years ago, denies EtOH or drugs Allergies: No known drug allergies Medications: Reviewed as per MAR Family history:noncontributory at this time ROS: Systems reviewed with positive findings see HPI Past Patient History - Infectious Disease Hx of Infectious Diseases: C.diff - Tetanus Immunizations Tetanus Immunization: Unknown - Past Medical History & Family History Past Medical History?: Yes - Past Social History Smoking Status: Former Smoker - CARDIAC Hx Cardiac Disorders: Yes (CAD) Hx Congestive Heart Failure: Yes Hx Hypercholesterolemia: Yes Hx Hypertension: Yes Hx Pacemaker: Yes - PULMONARY Hx Respiratory Disorders: Yes (SMOKED CIGARETTES QUIT 2011) Hx Pneumonia: Yes - NEUROLOGICAL Hx Neurological Disorder: Yes Hx Dizziness: Yes - HEENT Hx HEENT Problems: Yes - RENAL Hx Chronic Kidney Disease: Yes Other/Comment: renal stent 2013 - ENDOCRINE/METABOLIC Hx Endocrine Disorders: No - HEMATOLOGICAL/ONCOLOGICAL Hx Blood Transfusions: No Hx Blood Transfusion Reaction: No - INTEGUMENTARY Hx Dermatological Problems: Yes Other/Comment: POORLY HEALING SURGICAL WOUND TO BUTOCK - MUSCULOSKELETAL/RHEUMATOLOGICAL Hx Musculoskeletal Disorders: Yes Hx Falls: Yes - GASTROINTESTINAL Hx Gastrointestinal Disorders: Yes (LOWER GI BLEED/RECTAL BLEED,C DIFF COLITIS, SPASTIC COLON,RECTAL ABSCESS,) Hx Diverticulitis: Yes (DIVERTICULOSIS) Hx Gastroesophageal Reflux: Yes Other/Comment: PERIANAL ABSCESS -I/D WITH DEBRIDEMENT 12-27-16 - GENITOURINARY/GYNECOLOGICAL Hx Genitourinary Disorders: Yes (RENAL STENT) Hx Prostate Problems: Yes (PROSTATE CA WITH ROBOTIC SX RECONSTRUCTION) - PSYCHIATRIC Hx Psychophysiologic Disorder: Yes (SMOKED CIGARETTES QUIT 2011) Hx Emotional Abuse: No Hx Physical Abuse: No Hx Substance Use: No - SURGICAL HISTORY Hx Surgeries: Yes - ANESTHESIA Hx Anesthesia Reactions: No Hx Malignant Hyperthermia: No Meds Allergies/Adverse Reactions: Allergies Allergy/AdvReac Type Severity Reaction Status Date / Time No Known Allergies Allergy Verified 02/27/17 13:22 - Medications Medications: Current Medications Acetaminophen (Tylenol 325mg Tab) 650 mg PO Q6H PRN PRN Reason: Pain, moderate (4-7) Aspirin (Aspirin Chewable) 81 mg PO DAILY [facility] Last Admin: 03/02/17 09:16 Dose: 81 mg Atorvastatin Calcium (Lipitor) 20 mg PO DIN [facility] Last Admin: 03/01/17 16:22 Dose: 20 mg Cholestyramine Resin (Questran) 4 gm PO AC [facility] Last Admin: 03/02/17 12:20 Dose: 4 gm Hydrochlorothiazide (Microzide) 12.5 mg PO DAILY [facility] Last Admin: 03/02/17 09:16 Dose: 12.5 mg Sodium Chloride (Sodium Chloride 0.9%) 1,000 mls @ 100 mls/hr IV .Q10H [facility] Last Admin: 03/01/17 04:31 Dose: 100 mls/hr Metronidazole (Flagyl) 500 mg in 100 mls @ 100 mls/hr IVPB Q8 [facility] PRN Reason: Protocol Last Admin: 03/02/17 05:51 Dose: 100 mls/hr Lactobacillus Acidophilus (Bacid Acidophilus) 1 cap PO BID [facility] Last Admin: 03/02/17 09:16 Dose: 1 cap Losartan Potassium (Cozaar) 100 mg PO DAILY [facility] Last Admin: 03/02/17 09:16 Dose: 100 mg Multivitamins/Minerals (Therapeutic-M Tab) 1 tab PO 0800 [facility] Last Admin: 03/02/17 09:15 Dose: 1 tab Ondansetron HCl (Zofran Inj) 4 mg IVP Q4H PRN PRN Reason: Nausea/Vomiting Ondansetron HCl (Zofran Inj) 4 mg IVP ONCE PRN PRN Reason: Nausea/Vomiting Pantoprazole Sodium (Protonix Ec Tab) 40 mg PO 0600 [facility] Last Admin: 03/02/17 05:52 Dose: 40 mg Rifaximin (Xifaxan) 550 mg PO BID [facility] PRN Reason: Protocol Last Admin: 03/02/17 09:16 Dose: 550 mg Simethicone (Mylicon Chew Tab) 80 mg PO [facility] PRN PRN Reason: Bloating, gas, abdominal pain Vancomycin HCl (Vancocin 25 Mg/Ml (Oral Use)) 500 mg PO QID [facility] PRN Reason: Protocol Last Admin: 03/02/17 09:20 Dose: 500 mg Physical Exam - Constitutional Appears: No Acute Distress - Head Exam Head Exam: NORMAL INSPECTION - Eye Exam Eye Exam: Normal appearance. absent: Scleral icterus - ENT Exam ENT Exam: Mucous Membranes Moist - Neck Exam Neck exam: Positive for: Normal Inspection - Respiratory Exam Respiratory Exam: Decreased Breath Sounds, NORMAL BREATHING PATTERN. absent: Respiratory Distress - Cardiovascular Exam Cardiovascular Exam: +S1, +S2 - GI/Abdominal Exam GI & Abdominal Exam: Normal Bowel Sounds, Soft. absent: Guarding, Rebound, Tenderness - Rectal Exam Additional comments: left buttock dressing dry and intact, no bleeding noted, - Extremities Exam Extremities exam: Positive for: pedal pulses present. Negative for: calf tenderness, pedal edema - Neurological Exam Neurological exam: Alert, Oriented x3 Results - Vital Signs Recent Vital Signs: Last Vital Signs Temp 98.7 F 03/02/17 08:00 Pulse 67 03/02/17 08:00 Resp 20 03/02/17 08:00 BP 112/61 03/02/17 08:00 Pulse Ox 97 03/02/17 08:00 - Labs Result Diagrams: 03/02/17 09:00 03/02/17 06:35 Labs: Laboratory Results - last 24 hr 03/01/17 03/01/17 03/02/17 15:28 15:28 06:35 WBC 8.6 RBC 3.57 Hgb 10.7 L Hct 31.1 L MCV 87.1 MCH 30.0 MCHC 34.4 RDW 13.8 Plt Count 277 MPV 10.2 Gran % 69.6 H Lymph % (Auto) 19.3 L [place] % (Auto) 11.0 H Eos % (Auto) 0.0 L Baso % (Auto) 0.1 Gran # 5.97 Lymph # 1.7 [place] # 0.9 H Eos # 0.0 Baso # 0.01 PT 11.6 INR 1.07 Sodium 139 Potassium 3.5 L Chloride 109 H Carbon Dioxide 24 Anion Gap 10 BUN 14 Creatinine 1.1 Est GFR ( Amer) > 60 Est GFR (Non-Af Amer) > 60 Random Glucose 105 Calcium 8.3 L Total Bilirubin 0.2 AST 22 ALT 30 Alkaline Phosphatase 46 Total Protein 5.6 L Albumin 2.7 L Globulin 2.9 Albumin/Globulin Ratio 0.9 L 03/02/17 03/02/17 09:00 09:00 WBC 5.4 D RBC 3.61 Hgb 10.9 L Hct 32.2 L MCV 89.2 MCH 30.2 MCHC 33.9 RDW 14.0 Plt Count 255 MPV 10.4 Gran % 44.1 L Lymph % (Auto) 43.6 H [place] % (Auto) 10.4 H Eos % (Auto) 1.7 Baso % (Auto) 0.2 Gran # 2.38 Lymph # 2.4 [place] # 0.6 Eos # 0.1 Baso # 0.01 PT 11.3 INR 1.05 Sodium Potassium Chloride Carbon Dioxide Anion Gap BUN Creatinine Est GFR ( Amer) Est GFR (Non-Af Amer) Random Glucose Calcium Total Bilirubin AST ALT Alkaline Phosphatase Total Protein Albumin Globulin Albumin/Globulin Ratio Assessment & Plan - Assessment and Plan (Free Text) Assessment: ASSESSMENT: Rectal bleeding CDiff Colitis Perirectal Abcess, s/p I&D H/O DVT CAD w/stents H/O Prostate PLAN: diet as tolerated on Questran cont Probiotics continue PPI on Flagyl On ASA on Xifaxan DVT prophyalxisi: DVT stockings/ OOB May benefit from flexsig, has been off Eliquis since 02/26/17 , will discuss with medical team adn surgical team. Thank you for this consult and for allowing us to participate in your patient's care, will make further recommendation based upon clinical course. Seen and discussed . <Alonzo Jay V - Last Filed: 03/02/17 23:32> Meds - Medications Medications: Current Medications Acetaminophen (Tylenol 325mg Tab) 650 mg PO Q6H PRN PRN Reason: Pain, moderate (4-7) Aspirin (Aspirin Chewable) 81 mg PO DAILY [facility] Last Admin: 03/02/17 09:16 Dose: 81 mg Atorvastatin Calcium (Lipitor) 20 mg PO DIN [facility] Last Admin: 03/02/17 16:46 Dose: 20 mg Cholestyramine Resin (Questran) 4 gm PO AC [facility] Last Admin: 03/02/17 16:47 Dose: 4 gm Hydrochlorothiazide (Microzide) 12.5 mg PO DAILY [facility] Last Admin: 03/02/17 09:16 Dose: 12.5 mg Sodium Chloride (Sodium Chloride 0.9%) 1,000 mls @ 100 mls/hr IV .Q10H [facility] Last Admin: 03/01/17 04:31 Dose: 100 mls/hr Metronidazole (Flagyl) 500 mg in 100 mls @ 100 mls/hr IVPB Q8 [facility] PRN Reason: Protocol Last Admin: 03/02/17 21:26 Dose: 100 mls/hr Lactobacillus Acidophilus (Bacid Acidophilus) 1 cap PO BID [facility] Last Admin: 03/02/17 17:39 Dose: 1 cap Losartan Potassium (Cozaar) 100 mg PO DAILY [facility] Last Admin: 03/02/17 09:16 Dose: 100 mg Multivitamins/Minerals (Therapeutic-M Tab) 1 tab PO 0800 [facility] Last Admin: 03/02/17 09:15 Dose: 1 tab Ondansetron HCl (Zofran Inj) 4 mg IVP Q4H PRN PRN Reason: Nausea/Vomiting Ondansetron HCl (Zofran Inj) 4 mg IVP ONCE PRN PRN Reason: Nausea/Vomiting Pantoprazole Sodium (Protonix Ec Tab) 40 mg PO 0600 [facility] Last Admin: 03/02/17 05:52 Dose: 40 mg Potassium Chloride (K-Dur 20 Meq Er Tab) 40 meq PO DAILY [facility] Stop: 03/04/17 10:01 Last Admin: 03/02/17 13:45 Dose: 40 meq Rifaximin (Xifaxan) 550 mg PO BID [facility] PRN Reason: Protocol Last Admin: 03/02/17 17:39 Dose: 550 mg Simethicone (Mylicon Chew Tab) 80 mg PO [facility] PRN PRN Reason: Bloating, gas, abdominal pain Vancomycin HCl (Vancocin 25 Mg/Ml (Oral Use)) 500 mg PO QID [facility] PRN Reason: Protocol Last Admin: 03/02/17 21:27 Dose: 500 mg Results - Vital Signs Recent Vital Signs: Last Vital Signs Temp 97.7 F 03/02/17 15:40 Pulse 61 03/02/17 15:40 Resp 18 03/02/17 15:40 BP 129/49 L 03/02/17 15:40 Pulse Ox 97 03/02/17 15:40 - Labs Result Diagrams: 03/02/17 09:00 03/02/17 06:35 Labs: Laboratory Results - last 24 hr 03/02/17 03/02/17 03/02/17 06:35 09:00 09:00 WBC 5.4 D RBC 3.61 Hgb 10.9 L Hct 32.2 L MCV 89.2 MCH 30.2 MCHC 33.9 RDW 14.0 Plt Count 255 MPV 10.4 Gran % 44.1 L Lymph % (Auto) 43.6 H [place] % (Auto) 10.4 H Eos % (Auto) 1.7 Baso % (Auto) 0.2 Gran # 2.38 Lymph # 2.4 [place] # 0.6 Eos # 0.1 Baso # 0.01 PT 11.3 INR 1.05 Sodium 139 Potassium 3.5 L Chloride 109 H Carbon Dioxide 24 Anion Gap 10 BUN 14 Creatinine 1.1 Est GFR ( Amer) > 60 Est GFR (Non-Af Amer) > 60 Random Glucose 105 Calcium 8.3 L Total Bilirubin 0.2 AST 22 ALT 30 Alkaline Phosphatase 46 Total Protein 5.6 L Albumin 2.7 L Globulin 2.9 Albumin/Globulin Ratio 0.9 L Attending/Attestation - Attestation I have personally seen and examined this patient.: Yes I have fully participated in the care of the patient.: Yes I have reviewed all pertinent clinical information: Yes Notes (Text): t
[2017-03-03] MEDS: Pantoprazole 40 mg EC Tab PO SCH (05:37)
[2017-03-03] MEDS: metroNIDAZOLE IV 500 mg/100 ml 500 MG/100 ML BAG IVPB SCH ×3 (05:37→22:55)
[2017-03-03 08:15] LABS: HEMATOCRIT 32.9 % (42.0-52.0); MEAN CELL VOLUME 88.9 fL (80.0-105.0); MEAN CORPUSCULAR HGB CONC 33.7 g/dl (31.0-37.0); PLATELET COUNT 264 10^3/uL (120.0-450.0); RED CELL DISTRIBUTION WIDTH 14.1 % (11.5-14.5); WHITE BLOOD COUNT 5.5 10^3/ul (4.5-11.0)
[2017-03-03 08:17] LABS: ADD MANUAL DIFF? YES
[2017-03-03 08:33] LABS: INR 1.06 (0.93-1.08)
[2017-03-03 08:39] LABS: ALB/GLOB RATIO 0.9 (1.1-1.8); ALKALINE PHOSPHATASE 47 U/L (38-133); ALT/SGPT 27 U/L (7-56); AST/SGOT 29 U/L (15-59); BILIRUBIN,TOTAL 0.4 mg/dL (0.2-1.3); BLOOD UREA NITROGEN 11 mg/dL (7-21); CALCIUM 8.7 mg/dL (8.4-10.5); CARBON DIOXIDE 26 mmol/L (21-33); CHLORIDE 108 mmol/L (98-107); GFR AFRICAN-AMERICAN > 60; GLUCOSE,RANDOM 92 mg/dL (70-110); POTASSIUM 3.9 mmol/L (3.6-5.0); SODIUM 140 mmol/L (132-148); TOTAL PROTEIN 5.6 g/dL (5.8-8.3)
[2017-03-03] MEDS: Cholestyramine 4 gm/Pkt UD PO SCH ×3 (09:34→16:43)
[2017-03-03 09:53] LABS: BAND 2 % (0-2); EOSINOPHIL 4 % (0.0-3.0); NEUTROPHIL 35 % (50.0-70.0)
[2017-03-03 09:54] LABS: PLATELET ESTIMATE NORMAL (NORMAL)
[2017-03-03] MEDS: Lactobacillus Acidophilus 500 MU Cap PO SCH ×2 (10:13→17:52)
[2017-03-03] MEDS: Vancomycin 25 MG/ML PO SCH ×4 (10:14→22:56)
[2017-03-03] MEDS: Multivitamin With Minerals Tab PO SCH (10:14)
[2017-03-03] MEDS: Potassium Chloride 20 mEq ER Tab PO SCH (10:14)
--- NOTE | 2017-03-03 12:24 | CP.PCM.PN ---
<Flory Manley - Last Filed: 03/03/17 12:26> Subjective - Date & Time of Evaluation Date of Evaluation: 03/03/17 Time of Evaluation: 12:08 - Subjective Subjective: General Surgery Progress Note for Dr. Pimentel 76 M seen and examined at bedside. HOLA. Patient is tolerating pain well. Dressing and packing changes at bedside. Objective - Vital Signs/Intake and Output Vital Signs (last 24 hours): Temp Pulse Resp BP Pulse Ox 98.5 F 60 20 137/49 L 98 03/03/17 08:00 03/03/17 08:00 03/03/17 08:00 03/03/17 08:00 03/03/17 08:00 Intake and Output: 03/03/17 03/03/17 06:59 18:59 Intake Total 880 Output Total 1650 Balance -770 - Medications Medications: Current Medications Acetaminophen (Tylenol 325mg Tab) 650 mg PO Q6H PRN PRN Reason: Pain, moderate (4-7) Aspirin (Aspirin Chewable) 81 mg PO DAILY [facility] Last Admin: 03/03/17 10:13 Dose: 81 mg Atorvastatin Calcium (Lipitor) 20 mg PO DIN [facility] Last Admin: 03/02/17 16:46 Dose: 20 mg Cholestyramine Resin (Questran) 4 gm PO AC [facility] Last Admin: 03/03/17 11:15 Dose: 4 gm Hydrochlorothiazide (Microzide) 12.5 mg PO DAILY [facility] Last Admin: 03/03/17 10:15 Dose: 12.5 mg Sodium Chloride (Sodium Chloride 0.9%) 1,000 mls @ 100 mls/hr IV .Q10H [facility] Last Admin: 03/01/17 04:31 Dose: 100 mls/hr Metronidazole (Flagyl) 500 mg in 100 mls @ 100 mls/hr IVPB Q8 [facility] PRN Reason: Protocol Last Admin: 03/03/17 05:37 Dose: 100 mls/hr Lactobacillus Acidophilus (Bacid Acidophilus) 1 cap PO BID [facility] Last Admin: 03/03/17 10:13 Dose: 1 cap Losartan Potassium (Cozaar) 100 mg PO DAILY [facility] Last Admin: 03/03/17 10:13 Dose: 100 mg Multivitamins/Minerals (Therapeutic-M Tab) 1 tab PO 0800 [facility] Last Admin: 03/03/17 10:14 Dose: 1 tab Ondansetron HCl (Zofran Inj) 4 mg IVP Q4H PRN PRN Reason: Nausea/Vomiting Ondansetron HCl (Zofran Inj) 4 mg IVP ONCE PRN PRN Reason: Nausea/Vomiting Pantoprazole Sodium (Protonix Ec Tab) 40 mg PO 0600 [facility] Last Admin: 03/03/17 05:37 Dose: 40 mg Potassium Chloride (K-Dur 20 Meq Er Tab) 40 meq PO DAILY [facility] Stop: 03/04/17 10:01 Last Admin: 03/03/17 10:14 Dose: 40 meq Rifaximin (Xifaxan) 550 mg PO BID [facility] PRN Reason: Protocol Last Admin: 03/03/17 10:14 Dose: 550 mg Simethicone (Mylicon Chew Tab) 80 mg PO PC PRN PRN Reason: Bloating, gas, abdominal pain Vancomycin HCl (Vancocin 25 Mg/Ml (Oral Use)) 500 mg PO QID [facility] PRN Reason: Protocol Last Admin: 03/03/17 10:14 Dose: 500 mg - Labs Labs: 03/03/17 06:50 03/03/17 06:50 PT 11.4 Seconds (9.9-11.8) 03/03/17 06:50 INR 1.06 (0.93-1.08) 03/03/17 06:50 APTT 32.2 Seconds (23.7-30.8) H 02/27/17 06:25 - Constitutional Appears: No Acute Distress - Head Exam Head Exam: NORMAL INSPECTION, NORMOCEPHALIC - Eye Exam Eye Exam: EOMI, Normal appearance - ENT Exam ENT Exam: Mucous Membranes Moist - Neck Exam Neck Exam: Full ROM, Normal Inspection - Respiratory Exam Respiratory Exam: NORMAL BREATHING PATTERN. absent: Accessory Muscle Use, Rhonchi, Wheezes, Respiratory Distress - Cardiovascular Exam Cardiovascular Exam: REGULAR RHYTHM. absent: Bradycardia, Tachycardia, Murmur - GI/Abdominal Exam GI & Abdominal Exam: Soft. absent: Distended, Firm, Guarding, Rigid, Tenderness - Extremities Exam Extremities Exam: Full ROM, Normal Inspection - Neurological Exam Neurological Exam: Alert, Normal Gait, Oriented x3 - Skin Skin Exam: Dry, Normal Color. absent: Intact Additional comments: Perianal region, skin lesion with opening due to Incision and drainage. Assessment and Plan - Assessment and Plan (Free Text) Assessment: 76M presents with perirectal abscess s/p I&D POD #3 Plan: c/w current abx care for C diff consider fecal transplant c/w packing and dressing changes BID, PRN c/w current pain management Flory Manley DO PGY1 <Narayan Pimentel - Last Filed: 03/04/17 20:48> Objective - Vital Signs/Intake and Output Vital Signs (last 24 hours): Temp Pulse Resp BP Pulse Ox 97.8 F 75 20 140/71 100 03/04/17 16:21 03/04/17 16:21 03/04/17 16:21 03/04/17 16:21 03/04/17 16:21 Intake and Output: 03/04/17 03/05/17 18:59 06:59 Intake Total 840 Balance 840 - Medications Medications: Current Medications Acetaminophen (Tylenol 325mg Tab) 650 mg PO Q6H PRN PRN Reason: Pain, moderate (4-7) Aspirin (Aspirin Chewable) 81 mg PO DAILY [facility] Last Admin: 03/04/17 09:42 Dose: 81 mg Atorvastatin Calcium (Lipitor) 20 mg PO DIN [facility] Last Admin: 03/04/17 18:29 Dose: 20 mg Heparin Sodium (Porcine) (Heparin) 5,000 units SC Q8 [facility] Stop: 03/04/17 22:01 Last Admin: 03/04/17 16:32 Dose: 5,000 units Heparin Sodium (Porcine) (Heparin) 5,000 units SC Q8 [facility] Hydrochlorothiazide (Microzide) 12.5 mg PO DAILY [facility] Last Admin: 03/04/17 09:42 Dose: 12.5 mg Sodium Chloride (Sodium Chloride 0.9%) 1,000 mls @ 100 mls/hr IV .Q10H [facility] Last Admin: 03/01/17 04:31 Dose: 100 mls/hr Metronidazole (Flagyl) 500 mg in 100 mls @ 100 mls/hr IVPB Q8 [facility] PRN Reason: Protocol Last Admin: 03/04/17 14:12 Dose: 100 mls/hr Lactobacillus Acidophilus (Bacid Acidophilus) 1 cap PO BID [facility] Last Admin: 03/04/17 18:29 Dose: 1 cap Losartan Potassium (Cozaar) 100 mg PO DAILY [facility] Last Admin: 03/04/17 09:42 Dose: 100 mg Multivitamins/Minerals (Therapeutic-M Tab) 1 tab PO 0800 [facility] Last Admin: 03/04/17 09:41 Dose: 1 tab Ondansetron HCl (Zofran Inj) 4 mg IVP Q4H PRN PRN Reason: Nausea/Vomiting Ondansetron HCl (Zofran Inj) 4 mg IVP ONCE PRN PRN Reason: Nausea/Vomiting Pantoprazole Sodium (Protonix Ec Tab) 40 mg PO 0600 [facility] Last Admin: 03/04/17 05:54 Dose: 40 mg Rifaximin (Xifaxan) 550 mg PO BID [facility] PRN Reason: Protocol Last Admin: 03/04/17 18:29 Dose: 550 mg Simethicone (Mylicon Chew Tab) 80 mg PO [facility] PRN PRN Reason: Bloating, gas, abdominal pain Vancomycin HCl (Vancocin 25 Mg/Ml (Oral Use)) 500 mg PO QID [facility] PRN Reason: Protocol Last Admin: 03/04/17 18:29 Dose: 500 mg - Labs Labs: 03/04/17 06:30 03/04/17 06:30 PT 11.7 Seconds (9.9-11.8) 03/04/17 06:30 INR 1.08 (0.93-1.08) 03/04/17 06:30 APTT 28.6 Seconds (23.7-30.8) 03/04/17 12:30 Assessment and Plan - Assessment and Plan (Free Text) Plan: Patient was seen and examined by me. I agree with assessment and plan as per resident's note.
--- NOTE | 2017-03-03 15:23 | CON ---
DATE OF CONSULTATION: 03/03/2017 The patient is seen in room 575. CHIEF COMPLAINT: Loose bowel movement times several days. HISTORY OF PRESENT ILLNESS: This is a 76-year-old male who has a history of hypertension, DVT, obesity, coronary artery disease, dyslipidemia, GERD, hypertension and prostate cancer and had a perirectal abscess. He had an incision and drainage and E. coli growing. At the time of discharge, he had a prolonged hospitalization with multiple antibiotics, who is now admitted for his diarrhea and was found to have pseudomembranous colitis. Infectious Disease consultation requested. The patient reveals the patient has no fevers, No chills, no abdominal pain, no headaches or blurred vision, no nausea and no vomiting. No . No joint pain. PAST MEDICAL HISTORY: Significant for prostate cancer, hypertension, GERD, dyslipidemia, DVT, coronary artery disease, obesity, perirectal abscess and. PAST SURGICAL HISTORY: Significant for incision and drainage of the perirectal abscess, back surgery, carotid endarterectomy, pacemaker placement, cardiac cath with PCI and the patient also had prostate robotic surgery and had laminectomy in 1997. SOCIAL HISTORY: He stopped smoking 4 years ago. 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 MEDICATIONS: Are noted. PHYSICAL EXAMINATION: GENERAL: The patient is in bed. VITAL SIGNS: Temperature 98, blood pressure 120/70, respiratory rare 18, and heart of 67. HEENT: Unremarkable. NECK: Supple. LUNGS: Decreased breath sounds. HEART: Normal S1 and S2. ABDOMEN: Soft and nontender. RECTAL: Examination of rectal area is clean, there is a packing. LABORATORY DATA: Reveals white count of 5.5, hemoglobin of 11. Chemistries are noted. BUN 14 and creatinine 1.1. Microbiology is noted. The stool Clostridium difficile is positive for antigen and toxin. ASSESSMENT AND PLAN: This is a 76-year-old male with hypertension, deep venous thrombosis, obesity, coronary artery disease, perirectal abscess, incision and drainage and dyslipidemia, gastroesophageal reflex disease, prostate cancer now with pseudomembranous colitis on p.o. vancomycin and IV Flagyl and once the diarrhea improves, may be discharged on p.o. vancomycin from 14 to 21 days. We will follow with you. Guillaume Spence MD
--- NOTE | 2017-03-03 19:20 | CP.PCM.PN ---
<Merlin Barragan - Last Filed: 03/03/17 19:17> Subjective - Date & Time of Evaluation Date of Evaluation: 03/03/17 Time of Evaluation: 19:17 - Subjective Subjective: Medicine progress note for Dr. Orantes/Dr. Sharpe - Merlin Barragan PGY2 Patient seen and examined at bedside this morning. No acute overnight events or new complaints reported. Continues to have episodes of diarrhea. Discussed current results/workup/plan with patient. Will continue with dressing changes as per surgery recs and abx for cdiff. GI recs reviewed, possible flex sig to be scheduled. Denies chest pain, palpitations, SOB. Objective - Vital Signs/Intake and Output Vital Signs (last 24 hours): Temp Pulse Resp BP Pulse Ox 98.3 F 61 18 124/48 L 98 03/03/17 16:00 03/03/17 16:00 03/03/17 16:00 03/03/17 16:00 03/03/17 16:00 Intake and Output: 03/03/17 03/04/17 18:59 06:59 Intake Total 480 Balance 480 - Medications Medications: Current Medications Acetaminophen (Tylenol 325mg Tab) 650 mg PO Q6H PRN PRN Reason: Pain, moderate (4-7) Aspirin (Aspirin Chewable) 81 mg PO DAILY [facility] Last Admin: 03/03/17 10:13 Dose: 81 mg Atorvastatin Calcium (Lipitor) 20 mg PO DIN [facility] Last Admin: 03/03/17 16:43 Dose: 20 mg Cholestyramine Resin (Questran) 4 gm PO AC [facility] Last Admin: 03/03/17 16:43 Dose: 4 gm Hydrochlorothiazide (Microzide) 12.5 mg PO DAILY [facility] Last Admin: 03/03/17 10:15 Dose: 12.5 mg Sodium Chloride (Sodium Chloride 0.9%) 1,000 mls @ 100 mls/hr IV .Q10H [facility] Last Admin: 03/01/17 04:31 Dose: 100 mls/hr Metronidazole (Flagyl) 500 mg in 100 mls @ 100 mls/hr IVPB Q8 [facility] PRN Reason: Protocol Last Admin: 03/03/17 13:34 Dose: 100 mls/hr Lactobacillus Acidophilus (Bacid Acidophilus) 1 cap PO BID [facility] Last Admin: 03/03/17 17:52 Dose: 1 cap Losartan Potassium (Cozaar) 100 mg PO DAILY [facility] Last Admin: 03/03/17 10:13 Dose: 100 mg Multivitamins/Minerals (Therapeutic-M Tab) 1 tab PO 0800 [facility] Last Admin: 03/03/17 10:14 Dose: 1 tab Ondansetron HCl (Zofran Inj) 4 mg IVP Q4H PRN PRN Reason: Nausea/Vomiting Ondansetron HCl (Zofran Inj) 4 mg IVP ONCE PRN PRN Reason: Nausea/Vomiting Pantoprazole Sodium (Protonix Ec Tab) 40 mg PO 0600 [facility] Last Admin: 03/03/17 05:37 Dose: 40 mg Potassium Chloride (K-Dur 20 Meq Er Tab) 40 meq PO DAILY [facility] Stop: 03/04/17 10:01 Last Admin: 03/03/17 10:14 Dose: 40 meq Rifaximin (Xifaxan) 550 mg PO BID [facility] PRN Reason: Protocol Last Admin: 03/03/17 17:52 Dose: 550 mg Simethicone (Mylicon Chew Tab) 80 mg PO [facility] PRN PRN Reason: Bloating, gas, abdominal pain Vancomycin HCl (Vancocin 25 Mg/Ml (Oral Use)) 500 mg PO QID [facility] PRN Reason: Protocol Last Admin: 03/03/17 18:09 Dose: 500 mg - Labs Labs: 03/03/17 06:50 03/03/17 06:50 PT 11.4 Seconds (9.9-11.8) 03/03/17 06:50 INR 1.06 (0.93-1.08) 03/03/17 06:50 APTT 32.2 Seconds (23.7-30.8) H 02/27/17 06:25 - Constitutional Appears: Non-toxic, No Acute Distress - Head Exam Head Exam: ATRAUMATIC, NORMAL INSPECTION, NORMOCEPHALIC - Eye Exam Eye Exam: EOMI, PERRL - ENT Exam ENT Exam: Mucous Membranes Moist - Neck Exam Neck Exam: Normal Inspection - Respiratory Exam Respiratory Exam: Clear to Ausculation Bilateral. absent: Rales, Rhonchi, Wheezes - Cardiovascular Exam Cardiovascular Exam: +S1, +S2. absent: Gallop, Rubs, Murmur - GI/Abdominal Exam GI & Abdominal Exam: Soft. absent: Distended, Firm, Guarding, Rigid, Tenderness , Rebound - Neurological Exam Neurological Exam: Alert, Awake, Oriented x3 - Psychiatric Exam Psychiatric exam: Normal Affect, Normal Mood - Skin Skin Exam: Dry, Intact, Normal Color, Warm Assessment and Plan - Assessment and Plan (Free Text) Plan: 76yo M with history of DVT, CAD s/p stent, GERD, HLD, and HTN who is status post zaira-rectal abscess I&D and C. Diff Colitis in January of 2017 presents with complaints of bright red blood per rectum. He is s/p I&D of perirectal abscess POD 3. 1. Perirectal abscess s/p I&D, POD #3 - Surgery consulted, all recs appreciated; s/p I&D perirectal abscess POD 3; BID dressing changes; Completed Ancef - GI consulted (Misty), all recs appreciated - All anticoagulation medications held at this time, pending IR recs - H/H stable, no overt bleeds at this time; will continue to monitor H/H - Heart healthy diet 2. Diarrhea - Stool positive for C. difficile antigen and toxin - Continue Rifaximin, Lactobacillus, simethicone, zofran, multivitamin - Continue with PO Vanc and IV Flagyl - ID consulted - Dr. Spence - Contact precautions 3. History of DVT - Patient has a history of chronic DVT, was previously on Eliquis, which was held due to GI bleed and pre/zaira/postoperatively. Patient is concerned about risks of bleeding on anticoagulants because of his current GI bleed, and asked about IVC filter - Consult IR (Mathew) to evaluate for IVC filter; recommended lower extremity doppler to assess current state of DVT - Lower extremity doppler revealed bilateral isolated tibial DVT; recommended repeat doppler in 7-10 days - SCD's 4. Hypokalemia, resolved - Will continue to monitor and replete electrolytes as indicated 5. Anemia - Likely postoperative vs dilutional vs 2/2 GI bleed - Hemodynamically stable, asymptomatic - Will monitor for now. No iron supplement at this time to avoid constipation with known C. diff colitis 6. History of Dilated Cardiomyopathy and HTN - PPM - Continue home cozaar and hydrocholorthiazide 7. History of HLD - Continue home questran and lipitor GI Ppx - Protonix Patient seen and case discussed with attending, Dr. Sharpe <Woody Sharpe - Last Filed: 03/05/17 17:23> Objective - Vital Signs/Intake and Output Vital Signs (last 24 hours): Temp Pulse Resp BP Pulse Ox 97.9 F 61 20 112/51 L 97 03/05/17 16:00 03/05/17 16:00 03/05/17 16:00 03/05/17 16:00 03/05/17 16:00 Intake and Output: 03/05/17 03/05/17 06:59 18:59 Intake Total 980 0 Balance 980 0 - Medications Medications: Current Medications Acetaminophen (Tylenol 325mg Tab) 650 mg PO Q6H PRN PRN Reason: Pain, moderate (4-7) Aspirin (Aspirin Chewable) 81 mg PO DAILY [facility] Last Admin: 03/05/17 10:57 Dose: Not Given Atorvastatin Calcium (Lipitor) 20 mg PO DIN [facility] Last Admin: 03/04/17 18:29 Dose: 20 mg Heparin Sodium (Porcine) (Heparin) 5,000 units SC Q8 [facility] Hydrochlorothiazide (Microzide) 12.5 mg PO DAILY [facility] Last Admin: 03/05/17 10:57 Dose: Not Given Metronidazole (Flagyl) 500 mg in 100 mls @ 100 mls/hr IVPB Q8 [facility] PRN Reason: Protocol Last Admin: 03/05/17 15:18 Dose: 100 mls/hr Sodium Chloride (Sodium Chloride 0.9%) 1,000 mls @ 100 mls/hr IV .Q10H [facility] Last Admin: 03/05/17 13:00 Dose: 100 mls/hr Lactobacillus Acidophilus (Bacid Acidophilus) 1 cap PO BID [facility] Last Admin: 03/05/17 10:57 Dose: Not Given Losartan Potassium (Cozaar) 100 mg PO DAILY [facility] Last Admin: 03/05/17 10:57 Dose: Not Given Multivitamins/Minerals (Therapeutic-M Tab) 1 tab PO 0800 [facility] Last Admin: 03/05/17 08:11 Dose: Not Given Ondansetron HCl (Zofran Inj) 4 mg IVP Q4H PRN PRN Reason: Nausea/Vomiting Ondansetron HCl (Zofran Inj) 4 mg IVP ONCE PRN PRN Reason: Nausea/Vomiting Pantoprazole Sodium (Protonix Ec Tab) 40 mg PO 0600 [facility] Last Admin: 03/05/17 05:43 Dose: 40 mg Rifaximin (Xifaxan) 550 mg PO BID [facility] PRN Reason: Protocol Last Admin: 03/05/17 10:57 Dose: Not Given Simethicone (Mylicon Chew Tab) 80 mg PO [facility] PRN PRN Reason: Bloating, gas, abdominal pain Vancomycin HCl (Vancocin 25 Mg/Ml (Oral Use)) 500 mg PO QID [facility] PRN Reason: Protocol Last Admin: 03/05/17 15:20 Dose: 500 mg - Labs Labs: 03/05/17 07:05 03/05/17 07:05 PT 12.2 Seconds (9.9-11.8) H 03/05/17 07:05 INR 1.13 (0.93-1.08) H 03/05/17 07:05 APTT 28.6 Seconds (23.7-30.8) 03/04/17 12:30 Attending/Attestation - Attestation I have personally seen and examined this patient.: Yes I have fully participated in the care of the patient.: Yes I have reviewed all pertinent clinical information, including history, physical exam and plan: Yes Notes (Text): 03/05/17 17:23 Medical record note made by the resident after discussion with my direction and input after the patient was personally seen and examined by me. I have reviewed the chart and agree that the record accurately reflects by personal performance of the history, physical exam, data review, and medical decision-making, in the course for the patient. I have also personally directed the plan of care.
[2017-03-04] MEDS: metroNIDAZOLE IV 500 mg/100 ml 500 MG/100 ML BAG IVPB SCH ×3 (05:53→21:55)
[2017-03-04] MEDS: Pantoprazole 40 mg EC Tab PO SCH (05:54)
[2017-03-04 07:31] LABS: ADD MANUAL DIFF? NO
[2017-03-04 07:36] LABS: BASO # 0.02 K/mm3 (0.0-2.0); BASO % 0.3 % (0.0-3.0); EOS # 0.2 (0.0-0.7); EOS % 3.6 % (1.5-5.0); GRAN # 2.79 (1.4-6.5); GRAN % 42.4 % (50.0-68.0); HEMATOCRIT 35.1 % (42.0-52.0); LYMPH # 2.9 (1.2-3.4); MEAN CORPUSCULAR HEMOGLOBIN 30.6 pg (25.0-35.0); MEAN CORPUSCULAR HGB CONC 34.8 g/dl (31.0-37.0); MEAN PLATELET VOLUME 10.1 fl (7.0-11.0); MONO # 0.6 (0.1-0.6); MONO % 9.7 % (1.0-6.0); PLATELET COUNT 313 10^3/uL (120.0-450.0); WHITE BLOOD COUNT 6.6 10^3/ul (4.5-11.0)
[2017-03-04 07:44] LABS: INR 1.08 (0.93-1.08)
[2017-03-04 08:01] LABS: ALKALINE PHOSPHATASE 50 U/L (38-133); ALT/SGPT 35 U/L (7-56); AST/SGOT 32 U/L (15-59); BILIRUBIN,TOTAL 0.4 mg/dL (0.2-1.3); BLOOD UREA NITROGEN 11 mg/dL (7-21); CALCIUM 9.1 mg/dL (8.4-10.5); CARBON DIOXIDE 26 mmol/L (21-33); CHLORIDE 107 mmol/L (95-110); GFR AFRICAN-AMERICAN > 60; GLUCOSE,RANDOM 98 mg/dL (70-110); POTASSIUM 4.2 mmol/L (3.6-5.0); SODIUM 140 mmol/L (132-148); TOTAL PROTEIN 5.8 g/dL (5.8-8.3)
[2017-03-04] MEDS: Potassium Chloride 20 mEq ER Tab PO SCH (09:40)
[2017-03-04] MEDS: Lactobacillus Acidophilus 500 MU Cap PO SCH ×2 (09:40→18:29)
[2017-03-04] MEDS: Cholestyramine 4 gm/Pkt UD PO SCH (09:40)
[2017-03-04] MEDS: Multivitamin With Minerals Tab PO SCH (09:41)
--- NOTE | 2017-03-04 09:46 | CP.PCM.PN ---
Subjective - Date & Time of Evaluation Date of Evaluation: 03/03/17 - Subjective Subjective: still complains of diarrhea. Eliquis has been on hold in view of this bleeding.tolerating the diet Objective - Vital Signs/Intake and Output Vital Signs (last 24 hours): Temp Pulse Resp BP Pulse Ox 98.3 F 61 18 124/48 L 98 03/03/17 16:00 03/03/17 16:00 03/03/17 16:00 03/03/17 16:00 03/03/17 16:00 Intake and Output: 03/03/17 03/04/17 18:59 06:59 Intake Total 480 Balance 480 - Medications Medications: Current Medications Acetaminophen (Tylenol 325mg Tab) 650 mg PO Q6H PRN PRN Reason: Pain, moderate (4-7) Aspirin (Aspirin Chewable) 81 mg PO DAILY [facility] Last Admin: 03/03/17 10:13 Dose: 81 mg Atorvastatin Calcium (Lipitor) 20 mg PO DIN [facility] Last Admin: 03/03/17 16:43 Dose: 20 mg Cholestyramine Resin (Questran) 4 gm PO AC [facility] Last Admin: 03/03/17 16:43 Dose: 4 gm Hydrochlorothiazide (Microzide) 12.5 mg PO DAILY [facility] Last Admin: 03/03/17 10:15 Dose: 12.5 mg Sodium Chloride (Sodium Chloride 0.9%) 1,000 mls @ 100 mls/hr IV .Q10H [facility] Last Admin: 03/01/17 04:31 Dose: 100 mls/hr Metronidazole (Flagyl) 500 mg in 100 mls @ 100 mls/hr IVPB Q8 [facility] PRN Reason: Protocol Last Admin: 03/03/17 13:34 Dose: 100 mls/hr Lactobacillus Acidophilus (Bacid Acidophilus) 1 cap PO BID [facility] Last Admin: 03/03/17 17:52 Dose: 1 cap Losartan Potassium (Cozaar) 100 mg PO DAILY [facility] Last Admin: 03/03/17 10:13 Dose: 100 mg Multivitamins/Minerals (Therapeutic-M Tab) 1 tab PO 0800 [facility] Last Admin: 03/03/17 10:14 Dose: 1 tab Ondansetron HCl (Zofran Inj) 4 mg IVP Q4H PRN PRN Reason: Nausea/Vomiting Ondansetron HCl (Zofran Inj) 4 mg IVP ONCE PRN PRN Reason: Nausea/Vomiting Pantoprazole Sodium (Protonix Ec Tab) 40 mg PO 0600 [facility] Last Admin: 03/03/17 05:37 Dose: 40 mg Potassium Chloride (K-Dur 20 Meq Er Tab) 40 meq PO DAILY [facility] Stop: 03/04/17 10:01 Last Admin: 03/03/17 10:14 Dose: 40 meq Rifaximin (Xifaxan) 550 mg PO BID [facility] PRN Reason: Protocol Last Admin: 03/03/17 17:52 Dose: 550 mg Simethicone (Mylicon Chew Tab) 80 mg PO [facility] PRN PRN Reason: Bloating, gas, abdominal pain Vancomycin HCl (Vancocin 25 Mg/Ml (Oral Use)) 500 mg PO QID [facility] PRN Reason: Protocol Last Admin: 03/03/17 18:09 Dose: 500 mg - Labs Labs: 03/03/17 06:50 03/03/17 06:50 PT 11.4 Seconds (9.9-11.8) 03/03/17 06:50 INR 1.06 (0.93-1.08) 03/03/17 06:50 APTT 32.2 Seconds (23.7-30.8) H 02/27/17 06:25 - Constitutional Appears: Non-toxic - Head Exam Head Exam: ATRAUMATIC, NORMOCEPHALIC - Eye Exam Eye Exam: EOMI, PERRL - ENT Exam ENT Exam: Mucous Membranes Moist, Normal External Ear Exam - Neck Exam Neck Exam: Full ROM. absent: Lymphadenopathy - Respiratory Exam Respiratory Exam: Clear to Ausculation Bilateral, NORMAL BREATHING PATTERN - Cardiovascular Exam Cardiovascular Exam: Irregular Rhythm, +S2, +S4. absent: JVD - GI/Abdominal Exam GI & Abdominal Exam: Soft. absent: Tenderness, Mass - Neurological Exam Neurological Exam: Alert, Oriented x3 Assessment and Plan - Assessment and Plan (Free Text) Assessment: 1. Perianal abscess status post drainage status post recent debridement 2. C. difficile colitis on Vanco by mouth IV Flagyl and xifaxan 3. DVT on eliquis which has been on hold for GI bleeding bleeding per rectum. Recent I ER evaluation Doppler study noted recommended repeat Doppler in 7-10 days no immediate plan for IVC filter 4.oother problems include history of prostate CA coronary artery disease status post PCI Plan: 1. I did discuss with the patient's daughter , nurse practitioner [facility]. Patient did have a colonoscopy in January 2016 for Colon preparation no obvious lesion noticed except hemorrhoids diverticulosis. 2.It may be reasonable to evaluate the colon flexible sigmoidoscopy or colonoscopy in view of this bleeding /colitis. I will discuss with her the surgeon before starting the bowel preparation. We will proceed only the surgeon is agreeable. 3.I will also discuss with the medical team regarding the anticoagulation. It is reasonable to start heparin which can be monitored closely and discontinued if there is any active bleeding 4.Fecal transplant won't be successful in this patient if there is any immediate antibiotic therapy is needed. In general he would not consider for patient's what currently on antibiotics are won't require antibiotics in a short period of time again. Would consider fecal transplant if this active infective process is resolved and C. difficile is the main problem
--- NOTE | 2017-03-04 10:04 | CP.PCM.PN ---
Addendum entered and electronically signed by Hussain Layton DO 03/04/17 10:09 : General Surgery- Dr. Pimentel Original Note: <Hussain Layton - Last Filed: 03/04/17 10:01> Subjective - Date & Time of Evaluation Date of Evaluation: 03/04/17 Time of Evaluation: 07:30 - Subjective Subjective: Pt S&E at bedside the AM. NAEO. Tolerating diet. Multiple loose BM. Denies N/V CP/SOB. No blood is stool at this time. Changed packing at bedside. Objective - Vital Signs/Intake and Output Vital Signs (last 24 hours): Temp Pulse Resp BP Pulse Ox 97.7 F 79 20 133/58 L 96 03/04/17 08:07 03/04/17 08:07 03/04/17 08:07 03/04/17 08:07 03/04/17 08:07 Intake and Output: 03/04/17 03/04/17 06:59 18:59 Intake Total 580 Balance 580 - Medications Medications: Current Medications Acetaminophen (Tylenol 325mg Tab) 650 mg PO Q6H PRN PRN Reason: Pain, moderate (4-7) Aspirin (Aspirin Chewable) 81 mg PO DAILY [facility] Last Admin: 03/04/17 09:42 Dose: 81 mg Atorvastatin Calcium (Lipitor) 20 mg PO DIN [facility] Last Admin: 03/03/17 16:43 Dose: 20 mg Cholestyramine Resin (Questran) 4 gm PO AC [facility] Last Admin: 03/04/17 09:40 Dose: 4 gm Hydrochlorothiazide (Microzide) 12.5 mg PO DAILY [facility] Last Admin: 03/04/17 09:42 Dose: 12.5 mg Sodium Chloride (Sodium Chloride 0.9%) 1,000 mls @ 100 mls/hr IV .Q10H [facility] Last Admin: 03/01/17 04:31 Dose: 100 mls/hr Metronidazole (Flagyl) 500 mg in 100 mls @ 100 mls/hr IVPB Q8 [facility] PRN Reason: Protocol Last Admin: 03/04/17 05:53 Dose: 100 mls/hr Lactobacillus Acidophilus (Bacid Acidophilus) 1 cap PO BID [facility] Last Admin: 03/04/17 09:40 Dose: 1 cap Losartan Potassium (Cozaar) 100 mg PO DAILY [facility] Last Admin: 03/04/17 09:42 Dose: 100 mg Multivitamins/Minerals (Therapeutic-M Tab) 1 tab PO 0800 [facility] Last Admin: 03/04/17 09:41 Dose: 1 tab Ondansetron HCl (Zofran Inj) 4 mg IVP Q4H PRN PRN Reason: Nausea/Vomiting Ondansetron HCl (Zofran Inj) 4 mg IVP ONCE PRN PRN Reason: Nausea/Vomiting Pantoprazole Sodium (Protonix Ec Tab) 40 mg PO 0600 [facility] Last Admin: 03/04/17 05:54 Dose: 40 mg Rifaximin (Xifaxan) 550 mg PO BID [facility] PRN Reason: Protocol Last Admin: 03/04/17 09:41 Dose: 550 mg Simethicone (Mylicon Chew Tab) 80 mg PO HS PRN PRN Reason: Bloating, gas, abdominal pain Vancomycin HCl (Vancocin 25 Mg/Ml (Oral Use)) 500 mg PO QID [facility] PRN Reason: Protocol Last Admin: 03/03/17 22:56 Dose: 500 mg - Labs Labs: 03/04/17 06:30 03/04/17 06:30 PT 11.7 Seconds (9.9-11.8) 03/04/17 06:30 INR 1.08 (0.93-1.08) 03/04/17 06:30 APTT 32.2 Seconds (23.7-30.8) H 02/27/17 06:25 - Constitutional Appears: No Acute Distress - Eye Exam Eye Exam: EOMI - ENT Exam ENT Exam: Mucous Membranes Moist - Respiratory Exam Respiratory Exam: NORMAL BREATHING PATTERN. absent: Accessory Muscle Use, Chest Wall Tenderness - Cardiovascular Exam Cardiovascular Exam: REGULAR RHYTHM, +S1, +S2. absent: Gallop - Rectal Exam Additional comments: abscess draining purulent non bloody 2cm left from the anus. - Psychiatric Exam Psychiatric exam: Normal Affect, Normal Mood - Skin Skin Exam: Normal Color Assessment and Plan - Assessment and Plan (Free Text) Assessment: 76M perirectal abscess POD #4 s/p I&D. and + C.Diff Plan: c/w current abx care for C diff c/w packing and dressing changes BID, PRN c/w current pain management Plan for flex sigmoidoscopy tomorrow by GI discussed with Dr. Loren Layton PGY1 <Narayan Pimentel - Last Filed: 03/04/17 20:49> Objective - Vital Signs/Intake and Output Vital Signs (last 24 hours): Temp Pulse Resp BP Pulse Ox 97.8 F 75 20 140/71 100 03/04/17 16:21 03/04/17 16:21 03/04/17 16:21 03/04/17 16:21 03/04/17 16:21 Intake and Output: 03/04/17 03/05/17 18:59 06:59 Intake Total 840 Balance 840 - Medications Medications: Current Medications Acetaminophen (Tylenol 325mg Tab) 650 mg PO Q6H PRN PRN Reason: Pain, moderate (4-7) Aspirin (Aspirin Chewable) 81 mg PO DAILY [facility] Last Admin: 03/04/17 09:42 Dose: 81 mg Atorvastatin Calcium (Lipitor) 20 mg PO DIN [facility] Last Admin: 03/04/17 18:29 Dose: 20 mg Heparin Sodium (Porcine) (Heparin) 5,000 units SC Q8 [facility] Stop: 03/04/17 22:01 Last Admin: 03/04/17 16:32 Dose: 5,000 units Heparin Sodium (Porcine) (Heparin) 5,000 units SC Q8 [facility] Hydrochlorothiazide (Microzide) 12.5 mg PO DAILY [facility] Last Admin: 03/04/17 09:42 Dose: 12.5 mg Sodium Chloride (Sodium Chloride 0.9%) 1,000 mls @ 100 mls/hr IV .Q10H [facility] Last Admin: 03/01/17 04:31 Dose: 100 mls/hr Metronidazole (Flagyl) 500 mg in 100 mls @ 100 mls/hr IVPB Q8 [facility] PRN Reason: Protocol Last Admin: 03/04/17 14:12 Dose: 100 mls/hr Lactobacillus Acidophilus (Bacid Acidophilus) 1 cap PO BID [facility] Last Admin: 03/04/17 18:29 Dose: 1 cap Losartan Potassium (Cozaar) 100 mg PO DAILY [facility] Last Admin: 03/04/17 09:42 Dose: 100 mg Multivitamins/Minerals (Therapeutic-M Tab) 1 tab PO 0800 [facility] Last Admin: 03/04/17 09:41 Dose: 1 tab Ondansetron HCl (Zofran Inj) 4 mg IVP Q4H PRN PRN Reason: Nausea/Vomiting Ondansetron HCl (Zofran Inj) 4 mg IVP ONCE PRN PRN Reason: Nausea/Vomiting Pantoprazole Sodium (Protonix Ec Tab) 40 mg PO 0600 [facility] Last Admin: 03/04/17 05:54 Dose: 40 mg Rifaximin (Xifaxan) 550 mg PO BID [facility] PRN Reason: Protocol Last Admin: 03/04/17 18:29 Dose: 550 mg Simethicone (Mylicon Chew Tab) 80 mg PO [facility] PRN PRN Reason: Bloating, gas, abdominal pain Vancomycin HCl (Vancocin 25 Mg/Ml (Oral Use)) 500 mg PO QID [facility] PRN Reason: Protocol Last Admin: 03/04/17 18:29 Dose: 500 mg - Labs Labs: 03/04/17 06:30 03/04/17 06:30 PT 11.7 Seconds (9.9-11.8) 03/04/17 06:30 INR 1.08 (0.93-1.08) 03/04/17 06:30 APTT 28.6 Seconds (23.7-30.8) 03/04/17 12:30 Assessment and Plan - Assessment and Plan (Free Text) Plan: Patient was seen and examined by me. I agree with assessment and plan as per resident's note.
[2017-03-04] MEDS: Vancomycin 25 MG/ML PO SCH ×4 (10:19→21:54)
--- NOTE | 2017-03-04 11:34 | PN ---
DATE: 03/04/2017 SUBJECTIVE: The patient is seen in bed, in no acute distress, and nontoxic. PHYSICAL EXAMINATION: VITAL SIGNS: Temperature is 98, blood pressure is 120/70, and respiratory rate of 16. HEENT: Unremarkable. NECK: Supple. LUNGS: Decreased breath sounds. HEART: Normal S1 and S2. ABDOMEN: Soft and nontender. LABORATORY DATA: Reveals a white count of 6, hemoglobin of 12, and platelets of 313. Coagulation is noted. Chemistry reveals a BUN of 11, creatinine of 1.0, and stool for C. diff antigen and toxin are both positive. The patient is currently on IV Flagyl and p.o. vancomycin, Dr. Jay's note is reviewed from yesterday. ASSESSMENT AND PLAN: This is a 76-year-old male with history of hypertension, deep vein thrombosis, obesity, coronary artery disease, dyslipidemia, gastroesophageal reflux disease, prostate cancer, perirectal abscess, and incision and drainage, growing Escherichia coli, discharged now, is admitted with this admission with pseudomembranous colitis, on p.o. vancomycin and IV Flagyl. The patient's rectal packing appears to be clean with no evidence of an active infection at this point. We will treat with p.o. vancomycin once his diarrhea has been resolved and complete with p.o. vancomycin therapy. Guillaume Spence MD
--- NOTE | 2017-03-04 11:56 | CP.PCM.PN ---
Addendum entered and electronically signed by Pablito Barrera DO 03/04/17 20:14: Agree with Dr. Duran's exam and plan. As per GI, pending anoscopy or flex sig scope, cover with heparin SC q8 until procedure given DVT hx, will d/c heparin in the AM prior to scoping. Continue current regimen for C. diff as per ID. Original Note: <MARY DURAN - Last Filed: 03/04/17 12:17> Subjective - Date & Time of Evaluation Date of Evaluation: 03/04/17 Time of Evaluation: 06:45 - Subjective Subjective: Mary Duran DO PGY1 - Internal Medicine Progress Note - Dedyimi/Annemarie Service Patient seen and evaluated at bedside. No acute events overnight reported. He is s/p I&D of perirectal abscess, POD-4. He denies any pain. He reports that his pain is improving, and that his stools are no longer watery. He denies abdominal pain, constipation, fever, chills, CP, SOB. Objective - Vital Signs/Intake and Output Vital Signs (last 24 hours): Temp Pulse Resp BP Pulse Ox 97.7 F 79 20 133/58 L 96 03/04/17 08:07 03/04/17 08:07 03/04/17 08:07 03/04/17 08:07 03/04/17 08:07 Intake and Output: 03/04/17 03/04/17 06:59 18:59 Intake Total 580 Balance 580 - Medications Medications: Current Medications Acetaminophen (Tylenol 325mg Tab) 650 mg PO Q6H PRN PRN Reason: Pain, moderate (4-7) Aspirin (Aspirin Chewable) 81 mg PO DAILY [facility] Last Admin: 03/04/17 09:42 Dose: 81 mg Atorvastatin Calcium (Lipitor) 20 mg PO DIN [facility] Last Admin: 03/03/17 16:43 Dose: 20 mg Bisacodyl (Dulcolax) 10 mg PO ONCE [facility] Stop: 03/04/17 14:01 Heparin Sodium (Porcine) (Heparin) 5,000 units SC Q8 [facility] PRN Reason: Protocol Hydrochlorothiazide (Microzide) 12.5 mg PO DAILY [facility] Last Admin: 03/04/17 09:42 Dose: 12.5 mg Sodium Chloride (Sodium Chloride 0.9%) 1,000 mls @ 100 mls/hr IV .Q10H [facility] Last Admin: 03/01/17 04:31 Dose: 100 mls/hr Metronidazole (Flagyl) 500 mg in 100 mls @ 100 mls/hr IVPB Q8 [facility] PRN Reason: Protocol Last Admin: 03/04/17 05:53 Dose: 100 mls/hr Lactobacillus Acidophilus (Bacid Acidophilus) 1 cap PO BID [facility] Last Admin: 03/04/17 09:40 Dose: 1 cap Losartan Potassium (Cozaar) 100 mg PO DAILY [facility] Last Admin: 03/04/17 09:42 Dose: 100 mg Multivitamins/Minerals (Therapeutic-M Tab) 1 tab PO 0800 [facility] Last Admin: 03/04/17 09:41 Dose: 1 tab Ondansetron HCl (Zofran Inj) 4 mg IVP Q4H PRN PRN Reason: Nausea/Vomiting Ondansetron HCl (Zofran Inj) 4 mg IVP ONCE PRN PRN Reason: Nausea/Vomiting Pantoprazole Sodium (Protonix Ec Tab) 40 mg PO 0600 [facility] Last Admin: 03/04/17 05:54 Dose: 40 mg Polyethylene Glycol/Electrolytes (Golytely) 4,000 ml PO ONCE ONE Stop: 03/04/17 15:01 Rifaximin (Xifaxan) 550 mg PO BID [facility] PRN Reason: Protocol Last Admin: 03/04/17 09:41 Dose: 550 mg Simethicone (Mylicon Chew Tab) 80 mg PO [facility] PRN PRN Reason: Bloating, gas, abdominal pain Vancomycin HCl (Vancocin 25 Mg/Ml (Oral Use)) 500 mg PO QID [facility] PRN Reason: Protocol Last Admin: 03/04/17 10:19 Dose: 500 mg - Labs Labs: 03/04/17 06:30 03/04/17 06:30 PT 11.7 Seconds (9.9-11.8) 03/04/17 06:30 INR 1.08 (0.93-1.08) 03/04/17 06:30 APTT 32.2 Seconds (23.7-30.8) H 02/27/17 06:25 - Constitutional Appears: Non-toxic, No Acute Distress - Head Exam Head Exam: ATRAUMATIC, NORMOCEPHALIC - Eye Exam Eye Exam: EOMI, Normal appearance - ENT Exam ENT Exam: Mucous Membranes Moist - Neck Exam Neck Exam: absent: Lymphadenopathy, Meningismus, Thyromegaly - Respiratory Exam Respiratory Exam: Clear to Ausculation Bilateral. absent: Rales, Rhonchi, Wheezes - Cardiovascular Exam Cardiovascular Exam: RRR, +S1, +S2 - GI/Abdominal Exam GI & Abdominal Exam: Distended, Soft, Hyperactive Bowel Sounds. absent: Tenderness - Rectal Exam Additional comments: Dressing in place. 1cm wound left buttock approximately 1cm away from anus, appears clean and dry, iodoform gauze packing. No drainage or bleeding. - Extremities Exam Extremities Exam: Full ROM, Normal Inspection. absent: Calf Tenderness, Pedal Edema - Back Exam Back Exam: NORMAL INSPECTION - Neurological Exam Neurological Exam: Alert, Awake, Oriented x3 - Psychiatric Exam Psychiatric exam: Normal Affect, Normal Mood - Skin Skin Exam: Dry, Intact Assessment and Plan - Assessment and Plan (Free Text) Assessment: 76yo M with history of DVT, CAD s/p stent, GERD, HLD, and HTN who is status post zaira-rectal abscess I&D and C. Diff Colitis in January of 2017 presents with complaints of bright red blood per rectum. He is s/p I&D of perirectal abscess POD 4. He is also being treated for C. diff colitis. Plan: 1. Perianal abscess s/p I&D, POD #4 - Surgery consulted, all recs appreciated; s/p I&D perirectal abscess POD 4; BID dressing changes; Completed Ancef - Afebrile, no leukocytosis, pain improving - Heart healthy diet 2. GI bleed - Colitis vs perirectal abscess vs diverticular bleed vs hemorrhoids vs malignancy - GI consulted (Misty), all recs appreciated; recommending sigmoidoscopy or colonoscopy to evaluate for source of bleed - Starting heparin for DVT prophylaxis after discussion with GI concerning risk of GI bleed on anticoagulation vs risks of thromboembolic dz. Will monitor for active bleed. Heparin to be stopped pre-procedure as per GI - H/H stable, no overt bleeds at this time; will continue to monitor H/H 3. Diarrhea - C. diff colitis - Stool positive for C. difficile antigen and toxin - Continue Rifaximin, Lactobacillus, simethicone, zofran, multivitamin - Continue with PO Vanc and IV Flagyl - ID consulted - Dr. Spence, recommends continue current regimen, and discharge on PO vanc - Contact precautions 4. History of DVT - Patient has a history of bilat DVT discovered two admissions prior, was previously on Eliquis, which was held due to GI bleed and perioperatively. Patient is concerned about risks of bleeding on anticoagulants because of his current GI bleed, and asked about IVC filter - Consult IR (Mathew) to evaluate for IVC filter - Lower extremity doppler revealed bilateral isolated tibial DVT; recommended repeat doppler in 7-10 days - Start heparin 5000 SQ Q8 as per GI 5. Hypokalemia, resolved - Will continue to monitor and replete electrolytes as indicated 6. Anemia - Improving - Likely postoperative vs dilutional vs 2/2 GI bleed - Hemodynamically stable, asymptomatic - Will monitor for now. No iron supplement at this time to avoid constipation with known C. diff colitis 7. History of Dilated Cardiomyopathy and HTN - s/p Permanent pacemaker - Continue home cozaar and hydrocholorthiazide 8. History of HLD - Continue home questran and lipitor GI Ppx - Protonix Patient seen and case discussed with senior resident Dr. Barrera and attending, Dr. Sharpe <Woody Sharpe - Last Filed: 03/05/17 17:31> Objective - Vital Signs/Intake and Output Vital Signs (last 24 hours): Temp Pulse Resp BP Pulse Ox 97.9 F 61 20 112/51 L 97 03/05/17 16:00 03/05/17 16:00 03/05/17 16:00 03/05/17 16:00 03/05/17 16:00 Intake and Output: 03/05/17 03/05/17 06:59 18:59 Intake Total 980 0 Balance 980 0 - Medications Medications: Current Medications Acetaminophen (Tylenol 325mg Tab) 650 mg PO Q6H PRN PRN Reason: Pain, moderate (4-7) Aspirin (Aspirin Chewable) 81 mg PO DAILY [facility] Last Admin: 03/05/17 10:57 Dose: Not Given Atorvastatin Calcium (Lipitor) 20 mg PO DIN [facility] Last Admin: 03/04/17 18:29 Dose: 20 mg Heparin Sodium (Porcine) (Heparin) 5,000 units SC Q8 [facility] Hydrochlorothiazide (Microzide) 12.5 mg PO DAILY [facility] Last Admin: 03/05/17 10:57 Dose: Not Given Metronidazole (Flagyl) 500 mg in 100 mls @ 100 mls/hr IVPB Q8 [facility] PRN Reason: Protocol Last Admin: 03/05/17 15:18 Dose: 100 mls/hr Sodium Chloride (Sodium Chloride 0.9%) 1,000 mls @ 100 mls/hr IV .Q10H [facility] Last Admin: 03/05/17 13:00 Dose: 100 mls/hr Lactobacillus Acidophilus (Bacid Acidophilus) 1 cap PO BID [facility] Last Admin: 03/05/17 10:57 Dose: Not Given Losartan Potassium (Cozaar) 100 mg PO DAILY [facility] Last Admin: 03/05/17 10:57 Dose: Not Given Multivitamins/Minerals (Therapeutic-M Tab) 1 tab PO 0800 [facility] Last Admin: 03/05/17 08:11 Dose: Not Given Ondansetron HCl (Zofran Inj) 4 mg IVP Q4H PRN PRN Reason: Nausea/Vomiting Ondansetron HCl (Zofran Inj) 4 mg IVP ONCE PRN PRN Reason: Nausea/Vomiting Pantoprazole Sodium (Protonix Ec Tab) 40 mg PO 0600 [facility] Last Admin: 03/05/17 05:43 Dose: 40 mg Rifaximin (Xifaxan) 550 mg PO BID [facility] PRN Reason: Protocol Last Admin: 03/05/17 10:57 Dose: Not Given Simethicone (Mylicon Chew Tab) 80 mg PO [facility] PRN PRN Reason: Bloating, gas, abdominal pain Vancomycin HCl (Vancocin 25 Mg/Ml (Oral Use)) 500 mg PO QID [facility] PRN Reason: Protocol Last Admin: 03/05/17 15:20 Dose: 500 mg - Labs Labs: 03/05/17 07:05 03/05/17 07:05 PT 12.2 Seconds (9.9-11.8) H 03/05/17 07:05 INR 1.13 (0.93-1.08) H 03/05/17 07:05 APTT 28.6 Seconds (23.7-30.8) 03/04/17 12:30 Attending/Attestation - Attestation I have personally seen and examined this patient.: Yes I have fully participated in the care of the patient.: Yes I have reviewed all pertinent clinical information, including history, physical exam and plan: Yes Notes (Text): 03/05/17 17:31 Medical record note made by the resident after discussion with my direction and input after the patient was personally seen and examined by me. I have reviewed the chart and agree that the record accurately reflects by personal performance of the history, physical exam, data review, and medical decision-making, in the course for the patient. I have also personally directed the plan of care.
[2017-03-04] MEDS ORDERED: Bisacodyl 5mg EC Tab PO ONE (14:00)
[2017-03-04] MEDS ORDERED: Peg-Electrolyte Oral Soln 4L (Golytely) PO ONE (15:00)
--- NOTE | 2017-03-05 04:23 | OP ---
PROCEDURE DATE: 02/28/2017 PREOPERATIVE DIAGNOSIS: Perirectal abscess. POSTOPERATIVE DIAGNOSIS: Perirectal abscess. PROCEDURES: 1. Anorectal exam under anesthesia. 2. Ultrasound localization of the abscess. 3. Incision and drainage, perirectal abscess. SURGEON: Dr. Pimentel. ASSISTANTS: Dr. Luu and Dr. Layton. TYPE OF ANESTHESIA: General LMA. ESTIMATED BLOOD LOSS: Minimal. SPECIMENS: None. DESCRIPTION OF PROCEDURE: Patient is a 76-year-old male with history of previous perirectal abscess, discharged from the hospital a few weeks ago, after extensive dissection of the deep supralevator perirectal abscess. Patient now returns complaining of per rectal pain and apparently had an episode of bloody discharge from the rectum. Patient was examined, was noted to have tenderness in the area of previous abscess resection. Patient also had a CT scan revealing presence of a collection in the perirectal location. This was suspected for an abscess and therefore, patient was brought in for evaluation into the operating room. The patient was brought to the operating room, placed in the operating room table in supine position. Patient was connected to EKG, blood pressure and pulse exam monitors. Patient then underwent general LMA anesthesia, was prepped and draped in the usual sterile fashion in the lithotomy position. First, when the timeout procedure took place, then every body in the room agreed to this patient identity, diagnosis and the procedure to be performed. Careful evaluation of the perirectal area was done and the palpation revealed no evident abnormalities within the sphincter or inside of the rectum. The area of induration on the left side of the anal canal was suspected for underlying abscess and that is where indication on the CAT scan. Since this node was easily palpable, I decided to proceed with ultrasound localization of this abscess and placed a needle into the abscess under the guidance of the ultrasound. Once this was completed and small amount of serous fluid was obtained, careful incision with #11 blade was made in order to open up that abscess cavity. A serosanguineous dark fluid was drained from that area and careful evaluation of the finger revealed the presence of a cavity which was about 5 cm in size, with several small loculations, which were broken down. Once the abscess was copiously irrigated, no other irrigant fluid was suctioned out and bleeding points were cauterized. I then proceeded with packing of this abscess and covering with sterile dressing. Patient tolerated the procedure well and there were no complications. Patient was awakened and transferred to recovery room for further observation. Narayan Pimentel MD [id number]
[2017-03-05] MEDS: Pantoprazole 40 mg EC Tab PO SCH (05:43)
--- NOTE | 2017-03-05 05:54 | CP.PCM.PN ---
Subjective - Date & Time of Evaluation Date of Evaluation: 03/04/17 Time of Evaluation: 15:00 - Subjective Subjective: Patient is now having semi-formed stool no bleeding now. I had discussed with the resident. Today Objective - Vital Signs/Intake and Output Vital Signs (last 24 hours): Temp Pulse Resp BP Pulse Ox 97.8 F 75 20 140/71 100 03/04/17 16:21 03/04/17 16:21 03/04/17 16:21 03/04/17 16:21 03/04/17 16:21 Intake and Output: 03/04/17 03/05/17 18:59 06:59 Intake Total 840 860 Balance 840 860 - Medications Medications: Current Medications Acetaminophen (Tylenol 325mg Tab) 650 mg PO Q6H PRN PRN Reason: Pain, moderate (4-7) Aspirin (Aspirin Chewable) 81 mg PO DAILY [facility] Last Admin: 03/04/17 09:42 Dose: 81 mg Atorvastatin Calcium (Lipitor) 20 mg PO DIN [facility] Last Admin: 03/04/17 18:29 Dose: 20 mg Heparin Sodium (Porcine) (Heparin) 5,000 units SC Q8 [facility] Hydrochlorothiazide (Microzide) 12.5 mg PO DAILY [facility] Last Admin: 03/04/17 09:42 Dose: 12.5 mg Sodium Chloride (Sodium Chloride 0.9%) 1,000 mls @ 100 mls/hr IV .Q10H [facility] Last Admin: 03/01/17 04:31 Dose: 100 mls/hr Metronidazole (Flagyl) 500 mg in 100 mls @ 100 mls/hr IVPB Q8 [facility] PRN Reason: Protocol Last Admin: 03/04/17 21:55 Dose: 100 mls/hr Lactobacillus Acidophilus (Bacid Acidophilus) 1 cap PO BID [facility] Last Admin: 03/04/17 18:29 Dose: 1 cap Losartan Potassium (Cozaar) 100 mg PO DAILY [facility] Last Admin: 03/04/17 09:42 Dose: 100 mg Multivitamins/Minerals (Therapeutic-M Tab) 1 tab PO 0800 [facility] Last Admin: 03/04/17 09:41 Dose: 1 tab Ondansetron HCl (Zofran Inj) 4 mg IVP Q4H PRN PRN Reason: Nausea/Vomiting Ondansetron HCl (Zofran Inj) 4 mg IVP ONCE PRN PRN Reason: Nausea/Vomiting Pantoprazole Sodium (Protonix Ec Tab) 40 mg PO 0600 [facility] Last Admin: 03/04/17 05:54 Dose: 40 mg Rifaximin (Xifaxan) 550 mg PO BID [facility] PRN Reason: Protocol Last Admin: 03/04/17 18:29 Dose: 550 mg Simethicone (Mylicon Chew Tab) 80 mg PO [facility] PRN PRN Reason: Bloating, gas, abdominal pain Vancomycin HCl (Vancocin 25 Mg/Ml (Oral Use)) 500 mg PO QID [facility] PRN Reason: Protocol Last Admin: 03/04/17 21:54 Dose: 500 mg - Labs Labs: 03/04/17 06:30 03/04/17 06:30 PT 11.7 Seconds (9.9-11.8) 03/04/17 06:30 INR 1.08 (0.93-1.08) 03/04/17 06:30 APTT 28.6 Seconds (23.7-30.8) 03/04/17 12:30 - Constitutional Appears: Non-toxic, In Acute Distress - Head Exam Head Exam: ATRAUMATIC, NORMOCEPHALIC - Eye Exam Eye Exam: EOMI, PERRL - ENT Exam ENT Exam: Mucous Membranes Moist, Normal Exam - Neck Exam Neck Exam: Full ROM. absent: Lymphadenopathy - Respiratory Exam Respiratory Exam: Clear to Ausculation Bilateral, NORMAL BREATHING PATTERN. absent: Rales, Rhonchi - Cardiovascular Exam Cardiovascular Exam: REGULAR RHYTHM, +S1, +S2 - GI/Abdominal Exam GI & Abdominal Exam: Soft. absent: Tenderness - Neurological Exam Neurological Exam: Alert, Oriented x3 - Skin Skin Exam: Warm. absent: Cyanosis Assessment and Plan - Assessment and Plan (Free Text) Assessment: I had a detailed discussion with the patient and also resident. Patient's been started on subcutaneous heparin 5000 q8h Patient's been scheduled for colonoscopy Diet has been changed to clear liquid Patient is on Flagyl Vanco and also xifaxan Discussed with the surgeon who agreed with the plan I also discussed with Dr. Sharpe and his resident earlier today Plan: t
[2017-03-05 07:25] LABS: ADD MANUAL DIFF? NO
[2017-03-05 07:27] LABS: BASO # 0.02 K/mm3 (0.0-2.0); BASO % 0.3 % (0.0-3.0); EOS # 0.4 (0.0-0.7); EOS % 6.3 % (1.5-5.0); GRAN % 43.9 % (50.0-68.0); HEMATOCRIT 36.1 % (42.0-52.0); LYMPH # 2.7 (1.2-3.4); LYMPH % 42.1 % (22.0-35.0); MEAN CELL VOLUME 87.2 fL (80.0-105.0); MEAN CORPUSCULAR HGB CONC 34.3 g/dl (31.0-37.0); MEAN PLATELET VOLUME 9.8 fl (7.0-11.0); MONO # 0.5 (0.1-0.6); MONO % 7.4 % (1.0-6.0); PLATELET COUNT 336 10^3/uL (120.0-450.0); WHITE BLOOD COUNT 6.4 10^3/ul (4.5-11.0)
[2017-03-05 07:38] LABS: INR 1.13 (0.93-1.08)
[2017-03-05 07:45] LABS: ALB/GLOB RATIO 0.9 (1.1-1.8); ALKALINE PHOSPHATASE 51 U/L (38-133); ALT/SGPT 33 U/L (7-56); AST/SGOT 30 U/L (15-59); BILIRUBIN,TOTAL 0.5 mg/dL (0.2-1.3); BLOOD UREA NITROGEN 9 mg/dL (7-21); CARBON DIOXIDE 26 mmol/L (21-33); CHLORIDE 106 mmol/L (98-107); GFR AFRICAN-AMERICAN > 60; GLUCOSE,RANDOM 100 mg/dL (70-110); POTASSIUM 4.1 mmol/L (3.6-5.0); SODIUM 140 mmol/L (132-148); TOTAL PROTEIN 5.9 g/dL (5.8-8.3)
[2017-03-05] MEDS: Multivitamin With Minerals Tab PO SCH (08:11)
--- NOTE | 2017-03-05 08:33 | CP.PCM.PN ---
Subjective - Date & Time of Evaluation Date of Evaluation: 03/05/17 Time of Evaluation: 08:29 - Subjective Subjective: PT S&E at bedside ANGEL LUISPatrickRADHA. Patient states he's going for a flex sign today with Dr. Jay. Patient denies F/C, N/V, Abdominal pain. Dressing and packing changed at bedside. Objective - Vital Signs/Intake and Output Vital Signs (last 24 hours): Temp Pulse Resp BP Pulse Ox 97.8 F 69 18 114/57 L 97 03/05/17 07:37 03/05/17 07:37 03/05/17 07:37 03/05/17 07:37 03/05/17 07:37 Intake and Output: 03/05/17 03/05/17 06:59 18:59 Intake Total 980 Balance 980 - Medications Medications: Current Medications Acetaminophen (Tylenol 325mg Tab) 650 mg PO Q6H PRN PRN Reason: Pain, moderate (4-7) Aspirin (Aspirin Chewable) 81 mg PO DAILY [facility] Last Admin: 03/04/17 09:42 Dose: 81 mg Atorvastatin Calcium (Lipitor) 20 mg PO DIN [facility] Last Admin: 03/04/17 18:29 Dose: 20 mg Heparin Sodium (Porcine) (Heparin) 5,000 units SC Q8 [facility] Hydrochlorothiazide (Microzide) 12.5 mg PO DAILY [facility] Last Admin: 03/04/17 09:42 Dose: 12.5 mg Sodium Chloride (Sodium Chloride 0.9%) 1,000 mls @ 100 mls/hr IV .Q10H [facility] Last Admin: 03/01/17 04:31 Dose: 100 mls/hr Metronidazole (Flagyl) 500 mg in 100 mls @ 100 mls/hr IVPB Q8 [facility] PRN Reason: Protocol Last Admin: 03/04/17 21:55 Dose: 100 mls/hr Lactobacillus Acidophilus (Bacid Acidophilus) 1 cap PO BID [facility] Last Admin: 03/04/17 18:29 Dose: 1 cap Losartan Potassium (Cozaar) 100 mg PO DAILY [facility] Last Admin: 03/04/17 09:42 Dose: 100 mg Multivitamins/Minerals (Therapeutic-M Tab) 1 tab PO 0800 [facility] Last Admin: 03/05/17 08:11 Dose: Not Given Ondansetron HCl (Zofran Inj) 4 mg IVP Q4H PRN PRN Reason: Nausea/Vomiting Ondansetron HCl (Zofran Inj) 4 mg IVP ONCE PRN PRN Reason: Nausea/Vomiting Pantoprazole Sodium (Protonix Ec Tab) 40 mg PO 0600 [facility] Last Admin: 03/05/17 05:43 Dose: 40 mg Rifaximin (Xifaxan) 550 mg PO BID [facility] PRN Reason: Protocol Last Admin: 03/04/17 18:29 Dose: 550 mg Simethicone (Mylicon Chew Tab) 80 mg PO [facility] PRN PRN Reason: Bloating, gas, abdominal pain Vancomycin HCl (Vancocin 25 Mg/Ml (Oral Use)) 500 mg PO QID [facility] PRN Reason: Protocol Last Admin: 03/04/17 21:54 Dose: 500 mg - Labs Labs: 03/05/17 07:05 03/05/17 07:05 PT 12.2 Seconds (9.9-11.8) H 03/05/17 07:05 INR 1.13 (0.93-1.08) H 03/05/17 07:05 APTT 28.6 Seconds (23.7-30.8) 03/04/17 12:30 - Constitutional Appears: No Acute Distress - Head Exam Head Exam: NORMAL INSPECTION, NORMOCEPHALIC - Eye Exam Eye Exam: EOMI, Normal appearance - ENT Exam ENT Exam: Mucous Membranes Moist - Neck Exam Neck Exam: Full ROM, Normal Inspection - Respiratory Exam Respiratory Exam: NORMAL BREATHING PATTERN. absent: Accessory Muscle Use, Rhonchi, Wheezes, Respiratory Distress - Cardiovascular Exam Cardiovascular Exam: REGULAR RHYTHM. absent: Bradycardia, Tachycardia - GI/Abdominal Exam GI & Abdominal Exam: Soft, Normal Bowel Sounds. absent: Distended, Firm, Guarding, Rigid, Tenderness - Neurological Exam Neurological Exam: Alert, Awake, Normal Gait, Oriented x3 - Psychiatric Exam Psychiatric exam: Normal Affect, Normal Mood - Skin Skin Exam: Dry, Normal Color, Warm Additional comments: I&D site, no increase signs of induration, drainage, purulence. Assessment and Plan - Assessment and Plan (Free Text) Assessment: 76M Presents with GI bleed, + C.Diff colitis, perirectal abscess s/p incision and drainage POD #5 Plan: c/w current abx f/u flex sig with Dr. Jay f/u DVT tx with IR c/w current diet
--- NOTE | 2017-03-05 09:02 | CP.PCM.PN ---
Addendum entered and electronically signed by Arias Lim DO 03/05/17 16:00: Patient was seen and examined and case was discussed at length with Dr. Duran. Patient to undergo colonoscopy today. Still having some loose bowel movements but did do a prep overnight. Still on PO vanco and IV metronidazole for C. Diff. Arias Lim D.O. PGY-2 Original Note: <MARY DURAN - Last Filed: 03/05/17 15:46> Subjective - Date & Time of Evaluation Date of Evaluation: 03/05/17 Time of Evaluation: 06:45 - Subjective Subjective: Mary Duran DO PGY1 - Internal Medicine Progress Note - Dedousis/Miladysniel Service Patient seen and evaluated at bedside. No acute events overnight reported. He is s/p I&D of perirectal abscess, POD-5. Yesterday, seen by Dr. Jay for possible colonoscopy vs flexsig. Colonoscopy scheduled today, started prep for it yesterday. He denies any pain. He reports that his pain is improving. He does have diarrhea, but this is because of the colonic prep he started yesterday. He denies abdominal pain, constipation, fever, chills, CP, SOB. Objective - Vital Signs/Intake and Output Vital Signs (last 24 hours): Temp Pulse Resp BP Pulse Ox 97.8 F 69 18 114/57 L 97 03/05/17 07:37 03/05/17 07:37 03/05/17 07:37 03/05/17 07:37 03/05/17 07:37 Intake and Output: 03/05/17 03/05/17 06:59 18:59 Intake Total 980 Balance 980 - Medications Medications: Current Medications Acetaminophen (Tylenol 325mg Tab) 650 mg PO Q6H PRN PRN Reason: Pain, moderate (4-7) Aspirin (Aspirin Chewable) 81 mg PO DAILY [facility] Last Admin: 03/04/17 09:42 Dose: 81 mg Atorvastatin Calcium (Lipitor) 20 mg PO DIN [facility] Last Admin: 03/04/17 18:29 Dose: 20 mg Heparin Sodium (Porcine) (Heparin) 5,000 units SC Q8 [facility] Hydrochlorothiazide (Microzide) 12.5 mg PO DAILY [facility] Last Admin: 03/04/17 09:42 Dose: 12.5 mg Sodium Chloride (Sodium Chloride 0.9%) 1,000 mls @ 100 mls/hr IV .Q10H [facility] Last Admin: 03/01/17 04:31 Dose: 100 mls/hr Metronidazole (Flagyl) 500 mg in 100 mls @ 100 mls/hr IVPB Q8 [facility] PRN Reason: Protocol Last Admin: 03/04/17 21:55 Dose: 100 mls/hr Lactobacillus Acidophilus (Bacid Acidophilus) 1 cap PO BID [facility] Last Admin: 03/04/17 18:29 Dose: 1 cap Losartan Potassium (Cozaar) 100 mg PO DAILY [facility] Last Admin: 03/04/17 09:42 Dose: 100 mg Multivitamins/Minerals (Therapeutic-M Tab) 1 tab PO 0800 [facility] Last Admin: 03/05/17 08:11 Dose: Not Given Ondansetron HCl (Zofran Inj) 4 mg IVP Q4H PRN PRN Reason: Nausea/Vomiting Ondansetron HCl (Zofran Inj) 4 mg IVP ONCE PRN PRN Reason: Nausea/Vomiting Pantoprazole Sodium (Protonix Ec Tab) 40 mg PO 0600 [facility] Last Admin: 03/05/17 05:43 Dose: 40 mg Rifaximin (Xifaxan) 550 mg PO BID [facility] PRN Reason: Protocol Last Admin: 03/04/17 18:29 Dose: 550 mg Simethicone (Mylicon Chew Tab) 80 mg PO [facility] PRN PRN Reason: Bloating, gas, abdominal pain Vancomycin HCl (Vancocin 25 Mg/Ml (Oral Use)) 500 mg PO QID [facility] PRN Reason: Protocol Last Admin: 03/04/17 21:54 Dose: 500 mg - Labs Labs: 03/05/17 07:05 03/05/17 07:05 PT 12.2 Seconds (9.9-11.8) H 03/05/17 07:05 INR 1.13 (0.93-1.08) H 03/05/17 07:05 APTT 28.6 Seconds (23.7-30.8) 03/04/17 12:30 - Constitutional Appears: Non-toxic, No Acute Distress - Head Exam Head Exam: ATRAUMATIC, NORMOCEPHALIC - Eye Exam Eye Exam: EOMI, Normal appearance - ENT Exam ENT Exam: Mucous Membranes Moist - Neck Exam Neck Exam: Normal Inspection. absent: Lymphadenopathy, Meningismus - Respiratory Exam Respiratory Exam: Clear to Ausculation Bilateral. absent: Rales, Rhonchi, Wheezes - Cardiovascular Exam Cardiovascular Exam: RRR, +S1, +S2 - GI/Abdominal Exam GI & Abdominal Exam: Soft, Hyperactive Bowel Sounds. absent: Distended, Tenderness - Rectal Exam Additional comments: Dressing in place. 1cm wound left buttock approximately 1cm away from anus, appears clean and dry, iodoform gauze packing. No drainage or bleeding. - Extremities Exam Extremities Exam: absent: Calf Tenderness, Pedal Edema - Back Exam Back Exam: NORMAL INSPECTION - Neurological Exam Neurological Exam: Alert, Awake, Oriented x3 - Psychiatric Exam Psychiatric exam: Normal Affect, Normal Mood - Skin Skin Exam: Dry, Intact Assessment and Plan - Assessment and Plan (Free Text) Assessment: 76yo M with history of DVT, CAD s/p stent, GERD, HLD, and HTN who is status post zaira-rectal abscess I&D and C. Diff Colitis in January of 2017 presents with complaints of bright red blood per rectum. He is s/p I&D of perirectal abscess POD 5. He is also being treated for C. diff colitis. Plan: 1. Perianal abscess s/p I&D, POD #5 - Surgery consulted, all recs appreciated; s/p I&D perirectal abscess POD 5; BID dressing changes; Completed Ancef - Afebrile, no leukocytosis, pain improving - Heart healthy diet 2. GI bleed - Colitis vs perirectal abscess vs diverticular bleed vs hemorrhoids vs malignancy - GI consulted (Misty), all recs appreciated; colonoscopy scheduled today to evaluate for source of bleed, started colonic prep yesterday - Hold anticoagulation today for colonoscopy. If no complications, restart SQ heparin for DVT prophylaxis after discussion with GI concerning risk of GI bleed on anticoagulation vs risks of thromboembolic dz. Will monitor for active bleed. - H/H stable, no overt bleeds at this time; will continue to monitor H/H 3. Anemia - Improving - Likely postoperative vs dilutional vs 2/2 GI bleed - Hemodynamically stable, asymptomatic - Will monitor for now. No iron supplement at this time to avoid constipation with known C. diff colitis 4. Diarrhea - C. diff colitis - Stool positive for C. difficile antigen and toxin - Continue Rifaximin, Lactobacillus, simethicone, zofran, multivitamin - Continue with PO Vanc and IV Flagyl - ID consulted - Dr. Spence, recommends continue current regimen, and discharge on PO vanc - Contact precautions 5. History of DVT - Patient has a history of bilat DVT discovered two admissions prior, was previously on Eliquis, which was held due to GI bleed and perioperatively. Patient is concerned about risks of bleeding on anticoagulants because of his current GI bleed, and asked about IVC filter - Consult IR (Mathew) to evaluate for IVC filter - Lower extremity doppler 03/02/17 revealed bilateral isolated tibial DVT; recommended repeat doppler after 7-10 days - Start heparin 5000 SQ Q8 as per GI 6. Hypokalemia, resolved - Will continue to monitor and replete electrolytes as indicated 7. History of Dilated Cardiomyopathy and HTN - s/p Permanent pacemaker - Continue home cozaar and hydrocholorthiazide 8. History of HLD - Continue home questran and lipitor GI Ppx - Protonix Patient seen and case discussed with senior resident Dr. Barrera and attending, Dr. Sharpe <Woody Sharpe - Last Filed: 03/05/17 17:34> Objective - Vital Signs/Intake and Output Vital Signs (last 24 hours): Temp Pulse Resp BP Pulse Ox 97.9 F 61 20 112/51 L 97 03/05/17 16:00 03/05/17 16:00 03/05/17 16:00 03/05/17 16:00 03/05/17 16:00 Intake and Output: 03/05/17 03/05/17 06:59 18:59 Intake Total 980 0 Balance 980 0 - Medications Medications: Current Medications Acetaminophen (Tylenol 325mg Tab) 650 mg PO Q6H PRN PRN Reason: Pain, moderate (4-7) Aspirin (Aspirin Chewable) 81 mg PO DAILY [facility] Last Admin: 03/05/17 10:57 Dose: Not Given Atorvastatin Calcium (Lipitor) 20 mg PO DIN [facility] Last Admin: 03/04/17 18:29 Dose: 20 mg Heparin Sodium (Porcine) (Heparin) 5,000 units SC Q8 [facility] Hydrochlorothiazide (Microzide) 12.5 mg PO DAILY [facility] Last Admin: 03/05/17 10:57 Dose: Not Given Metronidazole (Flagyl) 500 mg in 100 mls @ 100 mls/hr IVPB Q8 [facility] PRN Reason: Protocol Last Admin: 03/05/17 15:18 Dose: 100 mls/hr Sodium Chloride (Sodium Chloride 0.9%) 1,000 mls @ 100 mls/hr IV .Q10H [facility] Last Admin: 03/05/17 13:00 Dose: 100 mls/hr Lactobacillus Acidophilus (Bacid Acidophilus) 1 cap PO BID [facility] Last Admin: 03/05/17 10:57 Dose: Not Given Losartan Potassium (Cozaar) 100 mg PO DAILY [facility] Last Admin: 03/05/17 10:57 Dose: Not Given Multivitamins/Minerals (Therapeutic-M Tab) 1 tab PO 0800 [facility] Last Admin: 03/05/17 08:11 Dose: Not Given Ondansetron HCl (Zofran Inj) 4 mg IVP Q4H PRN PRN Reason: Nausea/Vomiting Ondansetron HCl (Zofran Inj) 4 mg IVP ONCE PRN PRN Reason: Nausea/Vomiting Pantoprazole Sodium (Protonix Ec Tab) 40 mg PO 0600 [facility] Last Admin: 03/05/17 05:43 Dose: 40 mg Rifaximin (Xifaxan) 550 mg PO BID [facility] PRN Reason: Protocol Last Admin: 03/05/17 10:57 Dose: Not Given Simethicone (Mylicon Chew Tab) 80 mg PO [facility] PRN PRN Reason: Bloating, gas, abdominal pain Vancomycin HCl (Vancocin 25 Mg/Ml (Oral Use)) 500 mg PO QID [facility] PRN Reason: Protocol Last Admin: 03/05/17 15:20 Dose: 500 mg - Labs Labs: 03/05/17 07:05 03/05/17 07:05 PT 12.2 Seconds (9.9-11.8) H 03/05/17 07:05 INR 1.13 (0.93-1.08) H 03/05/17 07:05 APTT 28.6 Seconds (23.7-30.8) 03/04/17 12:30 Attending/Attestation - Attestation I have personally seen and examined this patient.: Yes I have fully participated in the care of the patient.: Yes I have reviewed all pertinent clinical information, including history, physical exam and plan: Yes Notes (Text): 03/05/17 17:34 Medical record note made by the resident after discussion with my direction and input after the patient was personally seen and examined by me. I have reviewed the chart and agree that the record accurately reflects by personal performance of the history, physical exam, data review, and medical decision-making, in the course for the patient. I have also personally directed the plan of care.
[2017-03-05] MEDS ORDERED: Propofol 10 mg/ml Inj (20 ML) ONE (09:37)
[2017-03-05] MEDS ORDERED: ePHEDrine 50 mg/ml Inj ONE (09:38)
[2017-03-05] MEDS ORDERED: Lidocaine 1% Inj (20ml) ONE (09:38)
[2017-03-05] MEDS ORDERED: Lidocaine 2% Jelly (30 ml) TOP ONE (09:42)
[2017-03-05] MEDS ORDERED: Lidocaine 2% Jelly (30 ml) ONE (09:43)
[2017-03-05] MEDS: Lactobacillus Acidophilus 500 MU Cap PO SCH ×2 (10:57→18:27)
[2017-03-05] MEDS: Vancomycin 25 MG/ML PO SCH ×4 (10:57→21:56)
--- NOTE | 2017-03-05 12:26 | PN ---
DATE: 03/05/2017 SUBJECTIVE: This patient was seen and evaluated earlier. I discussed with the patient. PHYSICAL EXAMINATION GENERAL: Comfortable. VITAL SIGNS: Afebrile. HEART: S1 and S2 heard. LUNGS: Bilateral air entry present. ABDOMEN: Soft, mildly distended, and no tenderness. IMPRESSION: Clostridium difficile colitis, bleeding per rectum, deep venous thrombosis on anticoagulation. The patient is on now subcutaneous heparin. Perianal abscess status post drainage twice. The patient is scheduled for colonoscopy evaluation. Further evaluate the source of the bleeding and also to evaluate the rectum and also colitis. Risks, benefits, and alternatives were explained. Informed consent was obtained. The patient underwent colonoscopic examination. The procedure was done under moderate sedation. Particular care was taken to have the procedure done with the minimal manipulation in view of this colitis, but the scope was advanced to the distal transverse colon. The colonic mucosa appear completely unremarkable and no pseudomembranes or mucosal breaks noticed. On rectal examination, the scope was also retroflexed in the rectum showed moderate internal hemorrhoids. There is no inflammation noticed in the rectum endoscopically. The scope was not advanced beyond the distal transverse colon in view of this redundancy of the colon and the decision was taken not to do much manipulation. The patient tolerated the procedure well, after the patient was the postanesthesia care, recovery unit and from there, the patient was subsequently discharged to the floor. RECOMMENDATIONS: We would recommend: 1. Continue the management for C. diff. 2. Surgical followup for perianal abscess. 3. Kindly resume the anticoagulation, the likely cause of the bleeding could be from the hemorrhoids. The patient does have some few scattered diverticulosis. Otherwise, colonic mucosa was unremarkable. Thank you very much for allowing us to participate in the care of the patient. Alonzo Jay MD
[2017-03-05] MEDS: Sodium Chloride 0.9% 1,000 ML IV SCH (13:00)
--- NOTE | 2017-03-05 14:11 | CP.PCM.PN ---
Subjective - Date & Time of Evaluation Date of Evaluation: 03/05/17 Time of Evaluation: 11:05 - Subjective Subjective: Patient just underwent colonoscopy, no fevers overnight, comfortable, not in distress. Still with diarrhea. Objective - Vital Signs/Intake and Output Vital Signs (last 24 hours): Temp Pulse Resp BP Pulse Ox 97.6 F 80 16 142/92 H 99 03/05/17 08:55 03/05/17 08:55 03/05/17 08:55 03/05/17 08:55 03/05/17 08:55 Intake and Output: 03/05/17 03/05/17 06:59 18:59 Intake Total 980 Balance 980 - Medications Medications: Current Medications Acetaminophen (Tylenol 325mg Tab) 650 mg PO Q6H PRN PRN Reason: Pain, moderate (4-7) Aspirin (Aspirin Chewable) 81 mg PO DAILY [facility] Last Admin: 03/04/17 09:42 Dose: 81 mg Atorvastatin Calcium (Lipitor) 20 mg PO DIN [facility] Last Admin: 03/04/17 18:29 Dose: 20 mg Heparin Sodium (Porcine) (Heparin) 5,000 units SC Q8 [facility] Hydrochlorothiazide (Microzide) 12.5 mg PO DAILY [facility] Last Admin: 03/04/17 09:42 Dose: 12.5 mg Sodium Chloride (Sodium Chloride 0.9%) 1,000 mls @ 100 mls/hr IV .Q10H [facility] Last Admin: 03/01/17 04:31 Dose: 100 mls/hr Metronidazole (Flagyl) 500 mg in 100 mls @ 100 mls/hr IVPB Q8 [facility] PRN Reason: Protocol Last Admin: 03/04/17 21:55 Dose: 100 mls/hr Lactobacillus Acidophilus (Bacid Acidophilus) 1 cap PO BID [facility] Last Admin: 03/04/17 18:29 Dose: 1 cap Losartan Potassium (Cozaar) 100 mg PO DAILY [facility] Last Admin: 03/04/17 09:42 Dose: 100 mg Multivitamins/Minerals (Therapeutic-M Tab) 1 tab PO 0800 [facility] Last Admin: 03/05/17 08:11 Dose: Not Given Ondansetron HCl (Zofran Inj) 4 mg IVP Q4H PRN PRN Reason: Nausea/Vomiting Ondansetron HCl (Zofran Inj) 4 mg IVP ONCE PRN PRN Reason: Nausea/Vomiting Pantoprazole Sodium (Protonix Ec Tab) 40 mg PO 0600 [facility] Last Admin: 03/05/17 05:43 Dose: 40 mg Rifaximin (Xifaxan) 550 mg PO BID [facility] PRN Reason: Protocol Last Admin: 03/04/17 18:29 Dose: 550 mg Simethicone (Mylicon Chew Tab) 80 mg PO [facility] PRN PRN Reason: Bloating, gas, abdominal pain Vancomycin HCl (Vancocin 25 Mg/Ml (Oral Use)) 500 mg PO QID [facility] PRN Reason: Protocol Last Admin: 03/04/17 21:54 Dose: 500 mg - Labs Labs: 03/05/17 07:05 03/05/17 07:05 PT 12.2 Seconds (9.9-11.8) H 03/05/17 07:05 INR 1.13 (0.93-1.08) H 03/05/17 07:05 APTT 28.6 Seconds (23.7-30.8) 03/04/17 12:30 - Constitutional Appears: Non-toxic, No Acute Distress - Head Exam Head Exam: NORMAL INSPECTION - ENT Exam ENT Exam: Mucous Membranes Moist - Neck Exam Neck Exam: absent: Meningismus - Respiratory Exam Respiratory Exam: Decreased Breath Sounds - Cardiovascular Exam Cardiovascular Exam: +S1, +S2 - GI/Abdominal Exam GI & Abdominal Exam: Soft. absent: Tenderness Assessment and Plan - Assessment and Plan (Free Text) Plan: Assessment C. diff. associated diarrhea S/P Sepsis due to perirectal abscess S/P I and D, S/P repeat debridement, partial closure and repeat debridement - cx grew Strep milleri and E. 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
[2017-03-05] MEDS: metroNIDAZOLE IV 500 mg/100 ml 500 MG/100 ML BAG IVPB SCH ×2 (15:18→21:57)
[2017-03-05 16:17] VITALS: RESP 20; TEMP 97.9
[2017-03-06] MEDS: Sodium Chloride 0.9% 1,000 ML IV SCH ×2 (02:36→14:26)
[2017-03-06] MEDS: Pantoprazole 40 mg EC Tab PO SCH (06:06)
[2017-03-06] MEDS: metroNIDAZOLE IV 500 mg/100 ml 500 MG/100 ML BAG IVPB SCH (06:07)
[2017-03-06 07:17] LABS: ADD MANUAL DIFF? NO
[2017-03-06 07:20] LABS: BASO # 0.02 K/mm3 (0.0-2.0); BASO % 0.3 % (0.0-3.0); EOS # 0.4 (0.0-0.7); EOS % 6.4 % (1.5-5.0); GRAN # 2.64 (1.4-6.5); GRAN % 43.6 % (50.0-68.0); HEMATOCRIT 34.7 % (42.0-52.0); LYMPH # 2.7 (1.2-3.4); LYMPH % 43.8 % (22.0-35.0); MEAN CELL VOLUME 87.2 fL (80.0-105.0); MEAN CORPUSCULAR HEMOGLOBIN 30.4 pg (25.0-35.0); MEAN CORPUSCULAR HGB CONC 34.9 g/dl (31.0-37.0); MEAN PLATELET VOLUME 9.7 fl (7.0-11.0); MONO # 0.4 (0.1-0.6); MONO % 5.9 % (1.0-6.0); PLATELET COUNT 334 10^3/uL (120.0-450.0); RED CELL DISTRIBUTION WIDTH 13.9 % (11.5-14.5); WHITE BLOOD COUNT 6.1 10^3/ul (4.5-11.0)
[2017-03-06 07:35] LABS: ALB/GLOB RATIO 0.8 (1.1-1.8); ALKALINE PHOSPHATASE 48 U/L (38-133); ALT/SGPT 34 U/L (7-56); AST/SGOT 27 U/L (15-59); BILIRUBIN,TOTAL 0.4 mg/dL (0.2-1.3); BLOOD UREA NITROGEN 12 mg/dL (7-21); CALCIUM 8.5 mg/dL (8.4-10.5); CARBON DIOXIDE 27 mmol/L (21-33); CHLORIDE 106 mmol/L (98-107); GFR AFRICAN-AMERICAN > 60; GLUCOSE,RANDOM 106 mg/dL (70-110); POTASSIUM 4.1 mmol/L (3.6-5.0); SODIUM 139 mmol/L (132-148); TOTAL PROTEIN 5.7 g/dL (5.8-8.3)
--- NOTE | 2017-03-06 09:13 | CP.PCM.PN ---
<Mickey Hidalgo - Last Filed: 03/06/17 09:10> Subjective - Date & Time of Evaluation Date of Evaluation: 03/06/17 Time of Evaluation: 09:10 - Subjective Subjective: General Surgery Note: Resident: Gwen Attending: Saundra HPI: Patient seen and examined at bedside. Doing well with no complaints at this time. Tolerating diet. +flatus. Colonoscopy yesterday. -N/V/CP/SOB/F Objective - Vital Signs/Intake and Output Vital Signs (last 24 hours): Temp Pulse Resp BP Pulse Ox 97.9 F 61 20 112/51 L 97 03/05/17 16:00 03/05/17 16:00 03/05/17 16:00 03/05/17 16:00 03/05/17 16:00 Intake and Output: 03/06/17 03/06/17 06:59 18:59 Intake Total 2020 Output Total 900 Balance 1120 - Medications Medications: Current Medications Acetaminophen (Tylenol 325mg Tab) 650 mg PO Q6H PRN PRN Reason: Pain, moderate (4-7) Aspirin (Aspirin Chewable) 81 mg PO DAILY [facility] Last Admin: 03/05/17 10:57 Dose: Not Given Atorvastatin Calcium (Lipitor) 20 mg PO DIN [facility] Last Admin: 03/05/17 18:27 Dose: 20 mg Heparin Sodium (Porcine) (Heparin) 5,000 units SC Q8 [facility] Hydrochlorothiazide (Microzide) 12.5 mg PO DAILY [facility] Last Admin: 03/05/17 10:57 Dose: Not Given Sodium Chloride (Sodium Chloride 0.9%) 1,000 mls @ 100 mls/hr IV .Q10H [facility] Last Admin: 03/06/17 02:36 Dose: 100 mls/hr Lactobacillus Acidophilus (Bacid Acidophilus) 1 cap PO BID [facility] Last Admin: 03/05/17 18:27 Dose: 1 cap Losartan Potassium (Cozaar) 100 mg PO DAILY [facility] Last Admin: 03/05/17 10:57 Dose: Not Given Multivitamins/Minerals (Therapeutic-M Tab) 1 tab PO 0800 [facility] Last Admin: 03/05/17 08:11 Dose: Not Given Ondansetron HCl (Zofran Inj) 4 mg IVP Q4H PRN PRN Reason: Nausea/Vomiting Pantoprazole Sodium (Protonix Ec Tab) 40 mg PO 0600 [facility] Last Admin: 03/06/17 06:06 Dose: 40 mg Rifaximin (Xifaxan) 550 mg PO BID [facility] PRN Reason: Protocol Last Admin: 03/05/17 18:27 Dose: 550 mg Simethicone (Mylicon Chew Tab) 80 mg PO [facility] PRN PRN Reason: Bloating, gas, abdominal pain Vancomycin HCl (Vancocin 25 Mg/Ml (Oral Use)) 500 mg PO QID [facility] PRN Reason: Protocol Last Admin: 03/05/17 21:56 Dose: 500 mg - Labs Labs: 03/06/17 07:00 03/06/17 07:00 PT 12.2 Seconds (9.9-11.8) H 03/05/17 07:05 INR 1.13 (0.93-1.08) H 03/05/17 07:05 APTT 28.6 Seconds (23.7-30.8) 03/04/17 12:30 - Constitutional Appears: Well - Eye Exam Eye Exam: EOMI - ENT Exam ENT Exam: Mucous Membranes Moist - Respiratory Exam Respiratory Exam: Clear to Ausculation Bilateral - Cardiovascular Exam Cardiovascular Exam: REGULAR RHYTHM - GI/Abdominal Exam GI & Abdominal Exam: Soft. absent: Distended, Tenderness - Rectal Exam Additional comments: packing in place. dressing C/D/I - Neurological Exam Neurological Exam: Alert, Awake, Oriented x3 - Psychiatric Exam Psychiatric exam: Normal Affect, Normal Mood Assessment and Plan - Assessment and Plan (Free Text) Assessment: 76 y/o male s/p I/D perirectal abscess * packing change BID * possible IVC filter per IR * cont. anticoag per GI * Colonoscopy: diverticular dz/hemorrhoids * cont PO vanc, IV Flagyll per ID for C.diff * will discuss with attending Mickey Hidalgo DO PGY-1 <Narayan Pimentel - Last Filed: 04/18/17 23:32> Objective - Vital Signs/Intake and Output Vital Signs (last 24 hours): Temp Pulse Resp BP Pulse Ox 97.9 F 72 20 122/59 L 98 03/06/17 16:00 03/06/17 16:00 03/06/17 16:00 03/06/17 16:00 03/06/17 16:00 - Labs Labs: 03/06/17 07:00 03/06/17 07:00 PT 12.2 Seconds (9.9-11.8) H 03/05/17 07:05 INR 1.13 (0.93-1.08) H 03/05/17 07:05 APTT 28.6 Seconds (23.7-30.8) 03/04/17 12:30 Assessment and Plan - Assessment and Plan (Free Text) Plan: Patient was seen and examined by me. I agree with assessment and plan as per resident's note.
[2017-03-06] MEDS: Vancomycin 25 MG/ML PO SCH ×3 (09:43→17:23)
[2017-03-06] MEDS: Lactobacillus Acidophilus 500 MU Cap PO SCH ×2 (09:45→17:24)
[2017-03-06] MEDS: Multivitamin With Minerals Tab PO SCH (09:46)
--- NOTE | 2017-03-06 10:52 | CP.PCM.PN ---
Subjective - Date & Time of Evaluation Date of Evaluation: 03/06/17 Time of Evaluation: 08:55 - Subjective Subjective: S&E at bedside, no acute overnight events reported. Had colon yesterday, no found to have diverticulosis, IH, scope advanced to transverse colon, no c/o bleeding, N/V or abdominal pain, tolerating oral intake. No diarrhea or blood per rectum. Objective - Vital Signs/Intake and Output Vital Signs (last 24 hours): Temp Pulse Resp BP Pulse Ox 97.9 F 61 20 112/51 L 97 03/05/17 16:00 03/05/17 16:00 03/05/17 16:00 03/05/17 16:00 03/05/17 16:00 Intake and Output: 03/06/17 03/06/17 06:59 18:59 Intake Total 2020 Output Total 900 Balance 1120 - Medications Medications: Current Medications Acetaminophen (Tylenol 325mg Tab) 650 mg PO Q6H PRN PRN Reason: Pain, moderate (4-7) Aspirin (Aspirin Chewable) 81 mg PO DAILY [facility] Last Admin: 03/06/17 09:45 Dose: 81 mg Atorvastatin Calcium (Lipitor) 20 mg PO DIN [facility] Last Admin: 03/05/17 18:27 Dose: 20 mg Heparin Sodium (Porcine) (Heparin) 5,000 units SC Q8 [facility] Hydrochlorothiazide (Microzide) 12.5 mg PO DAILY [facility] Last Admin: 03/06/17 09:45 Dose: 12.5 mg Sodium Chloride (Sodium Chloride 0.9%) 1,000 mls @ 100 mls/hr IV .Q10H [facility] Last Admin: 03/06/17 02:36 Dose: 100 mls/hr Lactobacillus Acidophilus (Bacid Acidophilus) 1 cap PO BID [facility] Last Admin: 03/06/17 09:45 Dose: 1 cap Losartan Potassium (Cozaar) 100 mg PO DAILY [facility] Last Admin: 03/06/17 09:45 Dose: 100 mg Multivitamins/Minerals (Therapeutic-M Tab) 1 tab PO 0800 [facility] Last Admin: 03/06/17 09:46 Dose: 1 tab Ondansetron HCl (Zofran Inj) 4 mg IVP Q4H PRN PRN Reason: Nausea/Vomiting Pantoprazole Sodium (Protonix Ec Tab) 40 mg PO 0600 [facility] Last Admin: 03/06/17 06:06 Dose: 40 mg Rifaximin (Xifaxan) 550 mg PO BID ADRIANNE PRN Reason: Protocol Last Admin: 03/06/17 09:45 Dose: 550 mg Simethicone (Mylicon Chew Tab) 80 mg PO PCHS PRN PRN Reason: Bloating, gas, abdominal pain Vancomycin HCl (Vancocin 25 Mg/Ml (Oral Use)) 500 mg PO QID ADRIANNE PRN Reason: Protocol Last Admin: 03/06/17 09:43 Dose: 500 mg - Labs Labs: 03/06/17 07:00 03/06/17 07:00 PT 12.2 Seconds (9.9-11.8) H 03/05/17 07:05 INR 1.13 (0.93-1.08) H 03/05/17 07:05 APTT 28.6 Seconds (23.7-30.8) 03/04/17 12:30 - Constitutional Appears: No Acute Distress - Head Exam Head Exam: NORMAL INSPECTION - Eye Exam Eye Exam: Normal appearance. absent: Scleral icterus - ENT Exam ENT Exam: Mucous Membranes Moist - Neck Exam Neck Exam: Normal Inspection - Respiratory Exam Respiratory Exam: NORMAL BREATHING PATTERN. absent: Respiratory Distress - Cardiovascular Exam Cardiovascular Exam: +S1, +S2 - GI/Abdominal Exam GI & Abdominal Exam: Soft, Normal Bowel Sounds. absent: Guarding, Tenderness, Rebound - Extremities Exam Extremities Exam: absent: Calf Tenderness, Pedal Edema - Neurological Exam Neurological Exam: Alert, Awake, Oriented x3 Assessment and Plan - Assessment and Plan (Free Text) Assessment: SSESSMENT: S/P Rectal bleeding CDiff Colitis Perirectal Abscess, s/p I&D DVT CAD w/stents H/O Prostate PLAN: continue heart healty diet cont Probiotics continue PPI on oral Vancomycin On ASA on Xifaxan DVT prophylaxsis: DVT stockings/ OOB Seen and discussed .
[2017-03-06 16:19] VITALS: BP 122/59; PULSE 72; O2SAT 98
--- NOTE | 2017-03-06 19:03 | CP.PCM.DIS ---
Addendum entered and electronically signed by Arias Lim DO 03/14/17 14:01: Patient was seen throughout admission alongside Dr. Duran. Patient bleeding stopped, diarrhea improved, patient counseled in detail about bleeding (HASBLED 3) and his leg pain where he had the DVT. Patient after much though and after group discussion with his daughter decided to take on the possible bleeding risks for actual anticoagulation therapy for his DVT, particularly because he is in pain. Patient to be seen back in the office. Arias Lim D.O. PGY-2 Original Note: <BROOKS DURAN - Last Filed: 03/06/17 19:09> Provider - Provider Date of Admission: 02/28/17 13:22 Attending physician: Bowen Orantes MD Primary care physician: Bowen Orantes MD Consults: GI: Svetlana Surg: Laura IR: Spencer Carmona GI: Misty ID: [id number] Time Spent in preparation of Discharge (in minutes): 55 Diagnosis - Discharge Diagnosis (1) Perianal abscess Status: Acute Priority: High (2) Lower GI bleed Status: Acute Priority: High (3) Colitis Status: Acute Priority: High (4) DVT (deep venous thrombosis) Status: Chronic Priority: High Hospital Course - Lab Results Lab Results: Micro Results 03/05/17 09:55 Stool C. difficile Antigen & Toxin A,B (M - Final 02/28/17 14:22 Stool C. difficile Antigen & Toxin A,B (M - Final Most Recent Lab Values WBC 6.1 10^3/ul (4.5-11.0) 03/06/17 07:00 RBC 3.98 10^6/uL (3.5-6.1) 03/06/17 07:00 Hgb 12.1 gm/dL (14.0-18.0) L 03/06/17 07:00 Hct 34.7 % (42.0-52.0) L 03/06/17 07:00 MCV 87.2 fL (80.0-105.0) 03/06/17 07:00 MCH 30.4 pg (25.0-35.0) 03/06/17 07:00 MCHC 34.9 g/dl (31.0-37.0) 03/06/17 07:00 RDW 13.9 % (11.5-14.5) 03/06/17 07:00 Plt Count 334 10^3/uL (120.0-450.0) 03/06/17 07:00 MPV 9.7 fl (7.0-11.0) 03/06/17 07:00 Gran % 43.6 % (50.0-68.0) L 03/06/17 07:00 Lymph % (Auto) 43.8 % (22.0-35.0) H 03/06/17 07:00 Bureau % (Auto) 5.9 % (1.0-6.0) 03/06/17 07:00 Eos % (Auto) 6.4 % (1.5-5.0) H 03/06/17 07:00 Baso % (Auto) 0.3 % (0.0-3.0) 03/06/17 07:00 Gran # 2.64 (1.4-6.5) 03/06/17 07:00 Lymph # 2.7 (1.2-3.4) 03/06/17 07:00 Bureau # 0.4 (0.1-0.6) 03/06/17 07:00 Eos # 0.4 (0.0-0.7) 03/06/17 07:00 Baso # 0.02 K/mm3 (0.0-2.0) 03/06/17 07:00 Neutrophils % (Manual) 35 % (50.0-70.0) L 03/03/17 06:50 Band Neutrophils % 2 % (0-2) 03/03/17 06:50 Lymphocytes % (Manual) 55 % (22.0-35.0) H 03/03/17 06:50 Monocytes % (Manual) 4 % (1.0-6.0) 03/03/17 06:50 Eosinophils % (Manual) 4 % (0.0-3.0) H 03/03/17 06:50 Platelet Evaluation Normal (NORMAL) 03/03/17 06:50 PT 12.2 Seconds (9.9-11.8) H 03/05/17 07:05 INR 1.13 (0.93-1.08) H 03/05/17 07:05 APTT 28.6 Seconds (23.7-30.8) 03/04/17 12:30 Sodium 139 mmol/L (132-148) 03/06/17 07:00 Potassium 4.1 mmol/L (3.6-5.0) 03/06/17 07:00 Chloride 106 mmol/L (98-107) 03/06/17 07:00 Carbon Dioxide 27 mmol/L (21-33) 03/06/17 07:00 Anion Gap 10 (10-20) 03/06/17 07:00 BUN 12 mg/dL (7-21) 03/06/17 07:00 Creatinine 1.2 mg/dL (0.5-1.4) 03/06/17 07:00 Est GFR ( Amer) > 60 03/06/17 07:00 Est GFR (Non-Af Amer) 59 03/06/17 07:00 POC Glucose (mg/dL) 98 mg/dL (65-110) 03/05/17 07:22 Random Glucose 106 mg/dL (70-110) 03/06/17 07:00 Calcium 8.5 mg/dL (8.4-10.5) 03/06/17 07:00 Magnesium 1.5 mg/dL (1.7-2.2) L 02/27/17 23:45 Total Bilirubin 0.4 mg/dL (0.2-1.3) 03/06/17 07:00 AST 27 U/L (15-59) 03/06/17 07:00 ALT 34 U/L (7-56) 03/06/17 07:00 Alkaline Phosphatase 48 U/L (38-133) 03/06/17 07:00 Total Protein 5.7 g/dL (5.8-8.3) L 03/06/17 07:00 Albumin 2.6 g/dL (3.0-4.8) L 03/06/17 07:00 Globulin 3.1 gm/dL 03/06/17 07:00 Albumin/Globulin Ratio 0.8 (1.1-1.8) L 03/06/17 07:00 Lipase 46 U/L (23-300) 02/27/17 06:25 Blood Type A POSITIVE 02/27/17 08:38 Antibody Screen Negative 02/27/17 08:38 BBK History Checked Patient has bt 07/18/17 08:38 - Hospital Course Hospital Course: 76M with PMH of DVT, CAD s/p stent, GERD, HLD, and HTN who is status post zaira- rectal abscess I&D and C. Diff Colitis in January of 2017 presented to [facility] c/o rectal bleeding starting that morning, along with lower abdominal pain and diarrhea for a few days. The following day, he was evaluated by surgery and was found to have a recurrent zaira-anal abscess, and was taken to the OR for I&D. He was also already being treated for diarrhea, presumed colitis, by his PCP with rifaximin. This treatment was continued, and his stool was later found to be +/+ for C. difficile antigen and toxin, at which point vancomyocin and flagyl were added and ID was consulted. He was also seen by GI, who initially recommended against any invasive scoping, but then the patient requested a second opinion, and ultimately did have a colonoscopy after several days of antibiotic treatment and wound care by the surgical team. Colonoscopy was significant only for internal hemorrhoids, and showed no pseudomembranes. Stool collected during the colonoscopy was negative for C. diff antigen and toxin. Concerning his history of DVT's, he was initially not anticoagulated because of the GI bleed, and he only received SCD's for prophylaxis. Later, he had a repeat duplex US of his legs which showed b/l isolated tibial DVTs, and IR was consulted for potential IVC filter placement. Today, patient chose not to have IVC filter placed, and instead chose to continue with oral anticoagulants for treatment and prophylaxis of DVT. This was after a long discussion with him and his daughter about all the risks and benefits of IVC filter placement vs oral anticoagulation. He was switched to PO vancomyocin and the remainder of his medications were discussed. All questions were answered to his satisfaction and he was discharged to home. Discharge Exam - Head Exam Head Exam: NORMAL INSPECTION - Eye Exam Eye Exam: EOMI, Normal appearance - ENT Exam ENT Exam: Mucous Membranes Moist - Neck Exam Neck exam: Full Rom, Normal Inspection - Respiratory Exam Respiratory Exam: Clear to PA & Lateral. absent: Rales, Rhonchi, Wheezes - Cardiovascular Exam Cardiovascular Exam: RRR, +S1, +S2 - GI/Abdominal Exam GI & Abdominal Exam: Normal Bowel Sounds, Soft. absent: Distended, Firm, Guarding, Mass, Rebound, Rigid, Tenderness - Rectal Exam Additional comments: Dressing in place. 1cm wound left buttock approximately 1cm away from anus, appears clean and dry, iodoform gauze packing. No drainage or bleeding. - Extremities Exam Extremities exam: normal inspection - Neurological Exam Neurological exam: Alert, Oriented x3 - Psychiatric Exam Psychiatric exam: Normal Affect, Normal Mood - Skin Skin Exam: Dry, Intact Discharge Plan - Discharge Medications Prescriptions: Apixaban [Eliquis] 5 mg PO BID #60 tab Vancomycin HCl 125 mg PO QID #40 capsule - Follow Up Plan Condition: GOOD Disposition: HOME/ ROUTINE Instructions: Rectal Bleeding (DC), Diverticulosis (DC), Deep Venous Thrombosis (DC), Clostridium Difficile Infection (DC), Chronic Hypertension (DC) , Abscess (GEN), Fall Prevention (DC), Rectal Abscess (DC) Additional Instructions: 1. Follow up with general surgery as indicated. 2. Follow up at Dr. Orantes/Annemarie office next 03/15. 3. Continue light wound packing and keep area clean and dry. 4. Return to office or ER for any other concerns. Referrals: Bowen Orantes MD [Primary Care Provider] - Narayan Pimentel MD [Staff Provider] - Alonzo Jay MD [Medical Doctor] - Spencer Carmona MD [Staff Provider] - <Bowen Orantes - Last Filed: 03/22/17 08:57> Provider - Provider Date of Admission: 02/28/17 13:22 Attending physician: Bowen Orantes MD Primary care physician: Bowen Orantes MD Hospital Course - Lab Results Lab Results: Micro Results 03/05/17 09:55 Stool C. difficile Antigen & Toxin A,B (M - Final 02/28/17 14:22 Stool C. difficile Antigen & Toxin A,B (M - Final Most Recent Lab Values WBC 6.1 10^3/ul (4.5-11.0) 03/06/17 07:00 RBC 3.98 10^6/uL (3.5-6.1) 03/06/17 07:00 Hgb 12.1 gm/dL (14.0-18.0) L 03/06/17 07:00 Hct 34.7 % (42.0-52.0) L 03/06/17 07:00 MCV 87.2 fL (80.0-105.0) 03/06/17 07:00 MCH 30.4 pg (25.0-35.0) 03/06/17 07:00 MCHC 34.9 g/dl (31.0-37.0) 03/06/17 07:00 RDW 13.9 % (11.5-14.5) 03/06/17 07:00 Plt Count 334 10^3/uL (120.0-450.0) 03/06/17 07:00 MPV 9.7 fl (7.0-11.0) 03/06/17 07:00 Gran % 43.6 % (50.0-68.0) L 03/06/17 07:00 Lymph % (Auto) 43.8 % (22.0-35.0) H 03/06/17 07:00 Bureau % (Auto) 5.9 % (1.0-6.0) 03/06/17 07:00 Eos % (Auto) 6.4 % (1.5-5.0) H 03/06/17 07:00 Baso % (Auto) 0.3 % (0.0-3.0) 03/06/17 07:00 Gran # 2.64 (1.4-6.5) 03/06/17 07:00 Lymph # 2.7 (1.2-3.4) 03/06/17 07:00 Bureau # 0.4 (0.1-0.6) 03/06/17 07:00 Eos # 0.4 (0.0-0.7) 03/06/17 07:00 Baso # 0.02 K/mm3 (0.0-2.0) 03/06/17 07:00 Neutrophils % (Manual) 35 % (50.0-70.0) L 03/03/17 06:50 Band Neutrophils % 2 % (0-2) 03/03/17 06:50 Lymphocytes % (Manual) 55 % (22.0-35.0) H 03/03/17 06:50 Monocytes % (Manual) 4 % (1.0-6.0) 03/03/17 06:50 Eosinophils % (Manual) 4 % (0.0-3.0) H 03/03/17 06:50 Platelet Evaluation Normal (NORMAL) 03/03/17 06:50 PT 12.2 Seconds (9.9-11.8) H 03/05/17 07:05 INR 1.13 (0.93-1.08) H 03/05/17 07:05 APTT 28.6 Seconds (23.7-30.8) 03/04/17 12:30 Sodium 139 mmol/L (132-148) 03/06/17 07:00 Potassium 4.1 mmol/L (3.6-5.0) 03/06/17 07:00 Chloride 106 mmol/L (98-107) 03/06/17 07:00 Carbon Dioxide 27 mmol/L (21-33) 03/06/17 07:00 Anion Gap 10 (10-20) 03/06/17 07:00 BUN 12 mg/dL (7-21) 03/06/17 07:00 Creatinine 1.2 mg/dL (0.5-1.4) 03/06/17 07:00 Est GFR ( Amer) > 60 03/06/17 07:00 Est GFR (Non-Af Amer) 59 03/06/17 07:00 POC Glucose (mg/dL) 98 mg/dL (65-110) 03/05/17 07:22 Random Glucose 106 mg/dL (70-110) 03/06/17 07:00 Calcium 8.5 mg/dL (8.4-10.5) 03/06/17 07:00 Magnesium 1.5 mg/dL (1.7-2.2) L 02/27/17 23:45 Total Bilirubin 0.4 mg/dL (0.2-1.3) 03/06/17 07:00 AST 27 U/L (15-59) 03/06/17 07:00 ALT 34 U/L (7-56) 03/06/17 07:00 Alkaline Phosphatase 48 U/L (38-133) 03/06/17 07:00 Total Protein 5.7 g/dL (5.8-8.3) L 03/06/17 07:00 Albumin 2.6 g/dL (3.0-4.8) L 03/06/17 07:00 Globulin 3.1 gm/dL 03/06/17 07:00 Albumin/Globulin Ratio 0.8 (1.1-1.8) L 03/06/17 07:00 Lipase 46 U/L (23-300) 02/27/17 06:25 Blood Type A POSITIVE 02/27/17 08:38 Antibody Screen Negative 02/27/17 08:38 BBK History Checked Patient has bt 02/27/17 08:38 Attending/Attestation - Attestation I have personally seen and examined this patient.: Yes I have fully participated in the care of the patient.: Yes I have reviewed all pertinent clinical information, including history, physical exam and plan: Yes Notes (Text): 03/22/17 08:57 Medical record note made by the resident done after discussion with my direction and input after the patient was personally seen by me. I have reviewed the chart and agree that the record accurately reflects my personal history, physical, data review, decision making and course for the patient.
--- NOTE | 2017-03-07 00:06 | PN ---
DATE: SUBJECTIVE: The patient is in bed, in no acute distress, was seen earlier this morning. No diarrhea reported. PHYSICAL EXAMINATION: VITAL SIGNS: Temperature is 97, blood pressure is 120/60, respiratory rate of 18. HEENT: Unremarkable. NECK: Supple. LUNGS: Decreased breath sounds. HEART: Normal S1 and S2. ABDOMEN: Soft. LABORATORY DATA: Reveals a white count of 6.1, hemoglobin of 12 and platelets of 334. BUN is 12, creatinine of 1.2. Microbiology reveals stool for C. diff, negative antigen, negative toxin. ASSESSMENT AND PLAN: This is a 76-year-old male who was seen earlier this morning, room 575, bed 2 with pseudomembranous colitis, diarrhea, Escherichia status post sepsis, perirectal abscess, incision and drainage, *------* debridement and currently on p.o. vancomycin. May complete with p.o. vancomycin therapy and discontinue IV Flagyl since the patient has not had any diarrhea now. Guillaume Spence MD
--- NOTE | 2017-03-07 11:47 | PQF SEPSIS ---
03/07/17 Dr. Sharpe/Dr. Orantes, ID physician documents "status post sepsis" due to perirectal abscess on his progress notes of 03/05 and 03/06. Do you agree, disagree, undetermined with the diagnosis of systemic sepsis for this patient? If you agree, was sepsis present on admission? Thank you. Clarification of your documentation is requested to better reflect the severity of illness and intensity of treatment of your patient. Indicators present [] Temp < 96.8 or > 100.4 [] WBC count > 12,000/mm3 or <000/mm3 or 10% immature neutrophils [] Heart Rate > 90 [] Respiratory Rate > 20 [] Fever or hypothermia [] Chills [] Positive blood cultures [] Hypotension [] Metabolic acidosis (Elevated lactate level, anion gap or reduced blood pH) [] Acute confusion /Altered Mental Status [] Shock [] Other: [] Location in the medical record that reflects the above clinical findings: [] Treatment Provided: [] PHYSICIAN'S RESPONSE Based on your medical judgment of the clinical indicators outlined above, are you treating this patient for a known or suspected: [] Sepsis / Septicemia Please specify organism if known [] [] SIRS (Systemic Inflammatory Response Syndrome) [] Severe Sepsis (Sepsis with Associated Organ Dysfunction) [] Fever of Unknown Origin [] Other, please indicate: [] [] If Unable to Determine, please check the box, sign and date. Present On Admission (POA) Indicator: [] Present at the time of admission [] Not present at the time of admission [] Clinically Undetermined In responding to this query, please exercise your independent professional judgment. The fact that a question is asked does not imply that any particular answer is desired or expected. Thank you for your clarification on this documentation. If you have any questions please call:[ ] * Thank you, [ ] certified appliance service technician [employer]
== END 2017-03-06 21:10 | disposition home or self-care (01) | DRG 344 ==
LOC: ED 05:45 → ERH 11:57 → 5RSO 14:54 → OBSVTOIN 02-28 13:22
PROVIDERS: ADMIT Internal Medicine; ATTEND Internal Medicine
PROC: 0D9P0ZZ Drainage of Rectum, Open Approach (ICD-10-PCS; principal; 2017-03-04)
PROC: BD4CZZZ Ultrasonography of Rectum (ICD-10-PCS; 2017-03-04)
PROC: 0DJD8ZZ Inspection of Lower Intestinal Tract, Via Natural or Artificial Opening Endoscopic (ICD-10-PCS; 2017-03-05)
DX: K61.2 Anorectal abscess (principal); J18.9 Pneumonia, unspecified organism; I44.2 Atrioventricular block, complete; I13.0 Hypertensive heart and chronic kidney disease with heart failure and stage 1 through stage 4 chronic kidney disease, or unspecified chronic kidney disease; A04.7 Enterocolitis due to Clostridium difficile; I42.0 Dilated cardiomyopathy; I50.9 Heart failure, unspecified; R65.10 Systemic inflammatory response syndrome (SIRS) of non-infectious origin without acute organ dysfunction; K92.2 Gastrointestinal hemorrhage, unspecified; I82.443 Acute embolism and thrombosis of tibial vein, bilateral; D62 Acute posthemorrhagic anemia; Q43.8 Other specified congenital malformations of intestine; I70.1 Atherosclerosis of renal artery; E66.9 Obesity, unspecified; E78.00 Pure hypercholesterolemia, unspecified; E78.5 Hyperlipidemia, unspecified; I25.10 Atherosclerotic heart disease of native coronary artery without angina pectoris; K21.9 Gastro-esophageal reflux disease without esophagitis; K64.8 Other hemorrhoids; N18.9 Chronic kidney disease, unspecified; Y95 Nosocomial condition; Z85.46 Personal history of malignant neoplasm of prostate; Z87.01 Personal history of pneumonia (recurrent); Z87.891 Personal history of nicotine dependence; Z95.0 Presence of cardiac pacemaker; Z95.5 Presence of coronary angioplasty implant and graft; R40.2412 Glasgow coma scale score 13-15, at arrival to emergency department; Z86.718 Personal history of other venous thrombosis and embolism; K58.9 Irritable bowel syndrome, unspecified; E87.6 Hypokalemia; B96.20 Unspecified Escherichia coli [E. coli] as the cause of diseases classified elsewhere; K57.30 Diverticulosis of large intestine without perforation or abscess without bleeding

== ENCOUNTER 2017-10-30 10:29 | Day surgery (SDC) | payer MEDICARE ==
[2017-10-30 11:02] VITALS: BMI 29.5
[2017-10-30] MEDS ORDERED: Propofol 10 mg/ml Inj (20 ML) ONE (12:22)
[2017-10-30] MEDS ORDERED: Sodium Chloride 0.9% 1,000 ML IV SCH (13:00)
[2017-10-30 13:41] VITALS: O2SAT 98
[2017-10-30 14:40] VITALS: BP 139/82; PULSE 65; RESP 14; TEMP 98.1
== END 2017-10-30 13:50 | disposition home or self-care (01) ==
LOC: ENDO 10:29
PROVIDERS: ATTEND Internal Medicine Gastroenterology
DX: K63.5 Polyp of colon (principal); K62.1 Rectal polyp; K57.30 Diverticulosis of large intestine without perforation or abscess without bleeding; K64.8 Other hemorrhoids; I25.10 Atherosclerotic heart disease of native coronary artery without angina pectoris; I10 Essential (primary) hypertension; Z95.0 Presence of cardiac pacemaker; Z85.46 Personal history of malignant neoplasm of prostate
CPT/HCPCS: 45380; 88305; J2001; J2704; J7040 ×2

== ENCOUNTER 2018-10-16 09:12 | Inpatient (IN) | payer MEDICARE ==
[2018-10-16] MEDS ORDERED: Sodium Chloride 0.9% 1,000 ML IV STA (10:11)
--- NOTE | 2018-10-16 10:12 | ED PDOC ---
Arrival/HPI - General Chief Complaint: Abdominal Pain Time Seen by Provider: 10/16/18 09:59 Historian: Patient - History of Present Illness Narrative History of Present Illness (Text): 10/16/18 10:11 78 year old male, whose past medical history includes rectal abscess, C. diff, colitis, DVT, CAD with coronary stents, prostate cancer s/p robotic reconstruction, GERD, hyperlipidemia, pacemaker, and hypertension, who presents to the emergency department complaining of abdominal pain. Patient feels bloated and describes the pain to be diffuse and in the lower abdominal region. He reports associated constipation and has been taking miralax and senokot to relieve pain. He notes he has a straining bowel movement earlier today and that he has associated flatus. He notes secondary back pain. Patient denies fevers, chills, headache, dizziness, chest pain, shortness of breath, dyspnea on exertion, cough, nausea, vomiting, diarrhea, neck pain, or any other complaint. PMD: Dr. Orantes Airplane Cabin Attendant: Dr. Mora Gi: Dr. Jay Symptom Onset: Gradual Symptom Course: Unchanged Activities at Onset: Light Context: Home Past Medical History - Provider Review Nursing Documentation Reviewed: Yes - Infectious Disease Hx of Infectious Diseases: None - Tetanus Immunization Tetanus Immunization: Unknown - Cardiac Hx Pacemaker: Yes (PT. DOES NOT KNOW SPECIFIC TYPE) - Pulmonary Hx Respiratory Disorders: Yes (SMOKED CIGARETTES QUIT 2011) Hx Pneumonia: Yes - Neurological Hx Paralysis: No - HEENT Hx HEENT Disorder: Yes - Renal Hx Renal Disorder: Yes Other/Comment: renal stent 2013 - Endocrine/Metabolic Hx Endocrine Disorders: No - Hematological/Oncological Hx Blood Transfusions: No Hx Blood Transfusion Reaction: No - Integumentary Hx Dermatological Disorder: Yes Other/Comment: POORLY HEALING SURGICAL WOUND TO BUTOCK - Musculoskeletal/Rheumatological Hx Musculoskeletal Disorders: No - Gastrointestinal Hx Gastrointestinal Disorders: Yes (LOWER GI BLEED/RECTAL BLEED,C DIFF COLITIS,SPASTIC COLON,RECTAL ABSCESS,) Hx Constipation: Yes Hx Diverticulitis: Yes (DIVERTICULOSIS) Hx Gastritis: Yes Other/Comment: PERIANAL ABSCESS -I/D WITH DEBRIDEMENT 12-27-16 SBO 2016 - Genitourinary/Gynecological Hx Genitourinary Disorders: Yes (RENAL STENT) Hx Prostate Problems: Yes (PROSTATE CA WITH ROBOTIC SX RECONSTRUCTION) Hx Reproductive Disorders: Yes (PROSTATE CA -ROBOTIC SX) - Psychiatric Hx Emotional Abuse: No Hx Physical Abuse: No Hx Substance Use: No - Past Surgical History Past Surgical History: No Previous - Surgical History Other/Comment: PROSTATE, PICC, RECTAL ABSCESS, BACK SURGERY, RENAL ARTERY STENT - Anesthesia Hx Anesthesia Reactions: No Hx Malignant Hyperthermia: No - Suicidal Assessment Feels Threatened In Home Enviroment: No Family/Social History - Physician Review Nursing Documentation Reviewed: Yes Family/Social History: No Known Family HX Smoking Status: Former Smoker Hx Alcohol Use: No (RARE) Hx Substance Use: No Allergies/Home Meds Allergies/Adverse Reactions: Allergies No Known Allergies Allergy (Verified 10/16/18 14:10) Home Medications: Home Meds Medication Instructions Recorded Confirmed Atorvastatin [Lipitor] 40 mg PO DIN 06/13/17 10/16/18 Irbesartan/Hydrochlorothiazide 1 each PO DAILY 06/13/17 10/16/18 [Avalide 300-12.5 mg Tablet] Cholecalciferol [Vitamin D] 1,000 iu PO DAILY 10/30/17 10/16/18 Docusate [Colace] 100 mg PO DAILY 10/30/17 10/16/18 Multivitamin [Multivitamins] 1 each PO DAILY 10/30/17 10/16/18 Ubidecarenone [Coq-10] 100 mg PO DAILY 10/30/17 10/16/18 Review of Systems - Physician Review All systems were reviewed & negative as marked: Yes - Review of Systems Constitutional: absent: Fevers Cardiovascular: absent: Chest Pain Physical Exam - Physical Exam Narrative Physical Exam (Text): 10/16/18 10:11 Constitutional: No acute distress. Head: Normocephalic. Atraumatic. Eyes: PERRL. ENT: Moist mucous membranes. Neck: Supple. Cardiovascular: Regular rate. Chest: No tenderness. Respiratory: Clear to auscultation bilaterally. GI: Diffuse abdominal tenderness with guarding and distention. Back: No CVA tenderness. Musculoskeletal: No tenderness or swelling of extremities. Skin: No rash. Neurologic: Alert, no focal deficit. Vital Signs Reviewed: Yes Vital Signs Temp Pulse Resp BP Pulse Ox 10/16/18 09:32 97.3 F L 74 18 110/68 97 Temperature: Afebrile Blood Pressure: Normal Pulse: Regular Respiratory Rate: Normal Appearance: Positive for: Well-Appearing, Non-Toxic, Comfortable Pain Distress: None Mental Status: Positive for: Alert and Oriented X 3 Medical Decision Making ED Course and Treatment: 10/16/18 10:11 Impression: 78 year old male who presents to the emergency department complaining of abdominal pain. Plan: -- BBK -- Abdomen and Pelvis CT -- Labs -- IV fluids -- Tylenol -- Zofran -- Reassess and disposition Prior Visits: Notes and results from previous visits were reviewed. Progress Notes: 10/16/18 12:[address] reviewed by radiologist, shows: FINDINGS: LOWER THORAX:Unremarkable. LIVER: Unremarkable. No gross lesion or ductal dilatation. GALLBLADDER AND BILE DUCTS:There is dense sludge in the gallbladder. Inflammatory changes are seen around the gallbladder suspicious for acute cholecystitis PANCREAS:Unremarkable. No gross lesion or ductal dilatation. SPLEEN:Unremarkable. ADRENALS:Unremarkable. No mass. KIDNEYS AND URETERS:Unremarkable. No hydronephrosis. No solid mass. VASCULATURE:Unremarkable. No aortic aneurysm. Aortic calcification BOWEL:Unremarkable. No obstruction. No gross mural thickening. APPENDIX:Unremarkable. Normal appendix. PERITONEUM:Unremarkable. No free fluid. No free air. LYMPH NODES:Unremarkable. No enlarged lymph nodes. BLADDER:Unremarkable. REPRODUCTIVE:Unremarkable. BONES:No acute fracture. OTHER FINDINGS:None. IMPRESSION: There is dense sludge in the gallbladder. Inflammatory changes are seen around the gallbladder suspicious for acute cholecystitis - Lab Interpretations I have reviewed the lab results: Yes - RAD Interpretation [employer] Sales Engineer: Radiologist - Scribe Statement The provider has reviewed the documentation as recorded by the Lex Mclaughlin Provider Scribe Attestation: All medical record entries made by the Lex were at my direction and personally dictated by me. I have reviewed the chart and agree that the record accurately reflects my personal performance of the history, physical exam, medical decision making, and the department course for this patient. I have also personally directed, reviewed, and agree with the discharge instructions and disposition. Disposition/Present on Arrival - Present on Arrival Any Indicators Present on Arrival: Yes History of DVT/PE: Yes History of Uncontrolled Diabetes: No Urinary Catheter: No History of Decub. Ulcer: No History Surgical Site Infection Following: None - Disposition Have Diagnosis and Disposition been Completed?: Yes Diagnosis: Acute cholecystitis Disposition: HOSPITALIZED Disposition Time: 12:44 Patient Plan: Admission Condition: FAIR
[2018-10-16 10:39] LABS: BASO # 0.02 K/mm3 (0.0-2.0); BASO % 0.2 % (0.0-3.0); EOS # 0.1 (0.0-0.7); EOS % 0.7 % (1.5-5.0); HEMOGLOBIN 16.5 g/dL (14.0-18.0); LYMPH # 2.1 (1.2-3.4); LYMPH % 20.2 % (22.0-35.0); MEAN CELL VOLUME 90.3 fl (80.0-105.0); MEAN CORPUSCULAR HEMOGLOBIN 31.5 pg (25.0-35.0); MEAN CORPUSCULAR HGB CONC 34.9 g/dl (31.0-37.0); MEAN PLATELET VOLUME 10.8 fl (7.0-11.0); MONO # 0.9 (0.1-0.6); RBC 5.24 10^6/uL (3.5-6.1); RED CELL DISTRIBUTION WIDTH 12.8 % (11.5-14.5); WHITE BLOOD COUNT 10.5 10^3/uL (4.5-11.0)
[2018-10-16 10:49] LABS: ALB/GLOB RATIO 1.2 (1.1-1.8); INR 1.19; PARTIAL THROMBOPLASTIN TIME 31.5 Seconds (26.9-38.3); PROTHROMBIN TIME 13.5 SECONDS (9.4-12.5)
[2018-10-16 10:57] LABS: ALBUMIN 4.2 g/dL (3.0-4.8); CALCIUM 9.7 mg/dL (8.4-10.5)
--- NOTE | 2018-10-16 12:34 | CT ---
Date of service: 10/16/2018 PROCEDURE: CT Abdomen and Pelvis without intravenous contrast HISTORY: abd distention, constipation COMPARISON: 02/27/2017 TECHNIQUE: Without contrast.. Contrast dose: Radiation dose: Total exam DLP = 848.14 mGy-cm. This CT exam was performed using one or more of the following dose reduction techniques: Automated exposure control, adjustment of the mA and/or kV according to patient size, and/or use of iterative reconstruction technique. FINDINGS: LOWER THORAX: Unremarkable. LIVER: Unremarkable. No gross lesion or ductal dilatation. GALLBLADDER AND BILE DUCTS: There is dense sludge in the gallbladder. Inflammatory changes are seen around the gallbladder suspicious for acute cholecystitis PANCREAS: Unremarkable. No gross lesion or ductal dilatation. SPLEEN: Unremarkable. ADRENALS: Unremarkable. No mass. KIDNEYS AND URETERS: Unremarkable. No hydronephrosis. No solid mass. VASCULATURE: Unremarkable. No aortic aneurysm. Aortic calcification BOWEL: Unremarkable. No obstruction. No gross mural thickening. APPENDIX: Unremarkable. Normal appendix. PERITONEUM: Unremarkable. No free fluid. No free air. LYMPH NODES: Unremarkable. No enlarged lymph nodes. BLADDER: Unremarkable. REPRODUCTIVE: Unremarkable. BONES: No acute fracture. OTHER FINDINGS: None. IMPRESSION: There is dense sludge in the gallbladder. Inflammatory changes are seen around the gallbladder suspicious for acute cholecystitis
[2018-10-16] MEDS ORDERED: Piperacill/Tazo 4.5gm in NS 4.5 GM/100 ML BAG IVPB STA (12:44)
--- NOTE | 2018-10-16 13:22 | CARD ---
APPROVED REPORT Date of service: 10/16/2018 EKG Measurement Heart [id number] <Conclusion> Electronic ventricular pacemaker
--- NOTE | 2018-10-16 13:37 | CP.PCM.HP ---
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 Pain is described as a constant dull ache associated with no alleviating or aggravating factors. Patient also admits to new onset bloating, constipation, nausea, and one episode of emesis after he took Tums. He has tried Senokot and Miralax with minimal relief. Patient has had poor oral intake due to lack of appetite. Denies fevers, chills, chest pain, shortness of breath, diarrhea, dysuria. PMH: rectal abscess, colitis, CAD, third degree AV block, GERD, GI bleed, DVT, prostate cancer, hyperlipidemia, hypertention, GI bleed PSH: cardiac stents, pacemaker, prostatectomy, CEA, renal stent SHx: denies alcohol or illicit drug use, former smoker (quit 2012) Allergies: NKDA PMD: Dr. Orantes Pharmacy: [facility] [place] Present on Admission - Present on Admission Any Indicators Present on Admission: No Review of Systems - Review of Systems All systems: reviewed and no additional remarkable complaints except (as stated in HPI) Past Patient History - Infectious Disease Hx of Infectious Diseases: None - Tetanus Immunizations Tetanus Immunization: Unknown - Past Medical History & Family History Past Medical History?: Yes - Past Social History Smoking Status: Former Smoker - CARDIAC Hx Pacemaker: Yes (PT. DOES NOT KNOW SPECIFIC TYPE) - PULMONARY Hx Respiratory Disorders: Yes (SMOKED CIGARETTES QUIT 2011) Hx Pneumonia: Yes - NEUROLOGICAL Hx Paralysis: No - HEENT Hx HEENT Problems: Yes - RENAL Hx Chronic Kidney Disease: Yes Other/Comment: renal stent 2013 - ENDOCRINE/METABOLIC Hx Endocrine Disorders: No - HEMATOLOGICAL/ONCOLOGICAL Hx Blood Transfusions: No Hx Blood Transfusion Reaction: No - INTEGUMENTARY Hx Dermatological Problems: Yes Other/Comment: POORLY HEALING SURGICAL WOUND TO BUTOCK - MUSCULOSKELETAL/RHEUMATOLOGICAL Hx Musculoskeletal Disorders: No - GASTROINTESTINAL Hx Gastrointestinal Disorders: Yes (LOWER GI BLEED/RECTAL BLEED,C DIFF COLITIS,SPASTIC COLON,RECTAL ABSCESS,) Hx Constipation: Yes Hx Diverticulitis: Yes (DIVERTICULOSIS) Hx Gastritis: Yes Other/Comment: PERIANAL ABSCESS -I/D WITH DEBRIDEMENT 12-27-16 SBO 2016 - GENITOURINARY/GYNECOLOGICAL Hx Genitourinary Disorders: Yes (RENAL STENT) Hx Prostate Problems: Yes (PROSTATE CA WITH ROBOTIC SX RECONSTRUCTION) Hx Reproductive Disorders: Yes (PROSTATE CA -ROBOTIC SX) - PSYCHIATRIC Hx Emotional Abuse: No Hx Physical Abuse: No Hx Substance Use: No - SURGICAL HISTORY Other/Comment: PROSTATE, PICC, RECTAL ABSCESS, BACK SURGERY, RENAL ARTERY STENT - ANESTHESIA Hx Anesthesia Reactions: No Hx Malignant Hyperthermia: No Meds Allergies/Adverse Reactions: Allergies Allergy/AdvReac Type Severity Reaction Status Date / Time No Known Allergies Allergy Verified 10/16/18 14:10 Physical Exam - Constitutional Appears: Non-toxic, No Acute Distress - Head Exam Head Exam: ATRAUMATIC, NORMOCEPHALIC - Eye Exam Eye Exam: EOMI, Normal appearance, PERRL - ENT Exam ENT Exam: Mucous Membranes Dry - Neck Exam Neck exam: Positive for: Full Rom - Respiratory Exam Respiratory Exam: Clear to Auscultation Bilateral, NORMAL BREATHING PATTERN. absent: Accessory Muscle Use, Rales, Rhonchi, Wheezes, Respiratory Distress - Cardiovascular Exam Cardiovascular Exam: REGULAR RHYTHM, +S1, +S2. absent: Tachycardia - GI/Abdominal Exam GI & Abdominal Exam: Distended, Normal Bowel Sounds, Soft. absent: Firm, Guarding, Rebound, Rigid, Tenderness - Extremities Exam Extremities exam: Positive for: normal capillary refill, normal inspection, pedal pulses present. Negative for: joint swelling, pedal edema - Back Exam Back exam: NORMAL INSPECTION. absent: rash noted - Neurological Exam Neurological exam: Alert, CN II-XII Intact, Oriented x3 - Psychiatric Exam Psychiatric exam: Normal Affect - Skin Skin Exam: Dry, Intact, Normal Color, Warm Results - Vital Signs Recent Vital Signs: Last Vital Signs Temp 97.3 F L 10/16/18 09:32 Pulse 60 10/16/18 11:13 Resp 16 10/16/18 11:13 BP 128/61 10/16/18 11:13 Pulse Ox 96 10/16/18 11:13 - Labs Result Diagrams: 10/16/18 10:25 10/16/18 10:25 Labs: Laboratory Results - last 24 hr 10/16/18 10/16/18 10/16/18 10:25 10:25 10:25 WBC 10.5 RBC 5.24 Hgb 16.5 D Hct 47.3 MCV 90.3 MCH 31.5 MCHC 34.9 RDW 12.8 Plt Count 299 MPV 10.8 Neut % (Auto) 69.9 H Lymph % (Auto) 20.2 L [place] % (Auto) 9.0 H Eos % (Auto) 0.7 L Baso % (Auto) 0.2 Lymph # (Auto) 2.1 [place] # (Auto) 0.9 H Eos # (Auto) 0.1 Baso # (Auto) 0.02 Absolute Neuts (auto) 7.33 H PT 13.5 H INR 1.19 APTT 31.5 Sodium 136 Potassium 4.7 Chloride 98 Carbon Dioxide 30 Anion Gap 12 BUN 30 H Creatinine 1.7 H Est GFR ( Amer) 48 Est GFR (Non-Af Amer) 39 Random Glucose 148 H Calcium 9.7 Total Bilirubin 1.5 H AST 25 ALT 12 Alkaline Phosphatase 64 Total Protein 7.8 Albumin 4.2 Globulin 3.6 Albumin/Globulin Ratio 1.2 Lipase 38 Blood Type Antibody Screen BBK History Checked 10/16/18 10:25 WBC RBC Hgb Hct MCV MCH MCHC RDW Plt Count MPV Neut % (Auto) Lymph % (Auto) [place] % (Auto) Eos % (Auto) Baso % (Auto) Lymph # (Auto) [place] # (Auto) Eos # (Auto) Baso # (Auto) Absolute Neuts (auto) PT INR APTT Sodium Potassium Chloride Carbon Dioxide Anion Gap BUN Creatinine Est GFR ( Amer) Est GFR (Non-Af Amer) Random Glucose Calcium Total Bilirubin AST ALT Alkaline Phosphatase Total Protein Albumin Globulin Albumin/Globulin Ratio Lipase Blood Type A POSITIVE Antibody Screen Negative BBK History Checked Patient has bt Assessment & Plan - Assessment and Plan (Free Text) Assessment: Patient is a 78 year old male with past medical history of rectal abscess, colitis, CAD s/p stents, 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 Plan: Cholecystitis - afebrile, no leukocytosis - CT abd/pelvis shows dense sludge in gallbladder, inflammatory changes around gallbladder suspicisou for acute cholecystitis - elevated total bilirubin - Ki Vivar - NS @ 100 ccs/ hr - Zofran PRN - NPO - Surgery consulted. Appreciate recs - Cardiology consulted for preop risk stratification - followup abdominal ultrasound and HIDA scan DENISE - likely due to poor PO intake - IVF - continue to monitor Constipation - continue home Colace Hypertension - hold home BP meds due to volume depletion Hyperlipidemia - continue home Lipitor PPX - SCDs Case reviewed with Dr. oNah Powell PGY-1 - Date & Time Date: 10/16/18 Time: 13:37 <Dashawn Zamora - Last Filed: 10/17/18 17:24> Results - Vital Signs Recent Vital Signs: Last Vital Signs Temp 98.7 F 10/17/18 14:00 Pulse 64 10/17/18 14:00 Resp 18 10/17/18 14:00 BP 116/61 10/17/18 14:00 Pulse Ox 98 10/17/18 14:00 - Labs Result Diagrams: 10/17/18 07:30 10/17/18 07:30 Labs: Laboratory Results - last 24 hr 10/16/18 10/16/18 10/16/18 20:30 21:25 21:25 WBC RBC Hgb Hct MCV MCH MCHC RDW Plt Count MPV Neut % (Auto) Lymph % (Auto) [place] % (Auto) Eos % (Auto) Baso % (Auto) Lymph # (Auto) [place] # (Auto) Eos # (Auto) Baso # (Auto) Absolute Neuts (auto) Sodium Potassium Chloride Carbon Dioxide Anion Gap BUN Creatinine Est GFR ( Amer) Est GFR (Non-Af Amer) Random Glucose Hemoglobin A1c Calcium Phosphorus Magnesium Total Bilirubin AST ALT Alkaline Phosphatase Total Protein Albumin Globulin Albumin/Globulin Ratio Triglycerides Cholesterol LDL Cholesterol Direct HDL Cholesterol TSH 3rd Generation Ur Random Creatinine 426 Ur Random Sodium 31 Ur Random Urea Nitrogn 978 10/17/18 10/17/18 10/17/18 07:30 07:30 07:30 WBC 8.3 D RBC 4.50 Hgb 13.8 L D Hct 41.0 L MCV 91.1 MCH 30.7 MCHC 33.7 RDW 13.1 Plt Count 266 MPV 10.8 Neut % (Auto) 61.9 Lymph % (Auto) 26.6 [place] % (Auto) 8.4 H Eos % (Auto) 2.9 Baso % (Auto) 0.2 Lymph # (Auto) 2.2 [place] # (Auto) 0.7 H Eos # (Auto) 0.2 Baso # (Auto) 0.02 Absolute Neuts (auto) 5.14 Sodium 138 Potassium 4.3 Chloride 104 Carbon Dioxide 26 Anion Gap 12 BUN 50 H Creatinine 2.0 H Est GFR ( Amer) 40 Est GFR (Non-Af Amer) 33 Random Glucose 100 Hemoglobin A1c 5.8 Calcium 8.7 Phosphorus 4.7 H Magnesium 1.9 Total Bilirubin 1.2 AST 21 ALT 18 Alkaline Phosphatase 53 Total Protein 6.7 Albumin 3.4 Globulin 3.3 Albumin/Globulin Ratio 1.0 L Triglycerides 115 Cholesterol 170 LDL Cholesterol Direct 95 HDL Cholesterol 30 TSH 3rd Generation Ur Random Creatinine Ur Random Sodium Ur Random Urea Nitrogn 10/17/18 07:30 WBC RBC Hgb Hct MCV MCH MCHC RDW Plt Count MPV Neut % (Auto) Lymph % (Auto) [place] % (Auto) Eos % (Auto) Baso % (Auto) Lymph # (Auto) [place] # (Auto) Eos # (Auto) Baso # (Auto) Absolute Neuts (auto) Sodium Potassium Chloride Carbon Dioxide Anion Gap BUN Creatinine Est GFR ( Amer) Est GFR (Non-Af Amer) Random Glucose Hemoglobin A1c Calcium Phosphorus Magnesium Total Bilirubin AST ALT Alkaline Phosphatase Total Protein Albumin Globulin Albumin/Globulin Ratio Triglycerides Cholesterol LDL Cholesterol Direct HDL Cholesterol TSH 3rd Generation 1.28 Ur Random Creatinine Ur Random Sodium Ur Random Urea Nitrogn Attending/Attestation - Attestation I have personally seen and examined this patient.: Yes I have fully participated in the care of the patient.: Yes I have reviewed all pertinent clinical information: Yes Notes (Text): 10/17/18 17:20 Attending note; Patient seen and examined with resident and ER. Patient's daughter by the bedside. Patient is alert and awake. Complaining of right upper quadrant abdominal pain. Denies any fevers, chills. Complaining of nausea. 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 1. Right upper quadrant pain; CAT scan showed sludge in the gallbladder area with inflammatory changes surrounding the gallbladder suspicious of cholecystitis. Patient is n.p.o.. Started on IV fluids. Continue IV Rocephin and Flagyl. Surgery evaluation requested. Abdominal ultrasound ordered. 2. coronary artery disease and stent placement. Aspirin on hold. Cardiology evaluation requested per preop risk stratification. 3. Hypertension; Patient is taking avelide at home. 4. Status post pacemaker placement. EKG showed paced rhythm. Monitor closely. We will follow-up with surgery.
--- NOTE | 2018-10-16 15:07 | CP.PCM.CON ---
History of Present Illness - History of Present Illness History of Present Illness: Gerneal Surgery consult note for Dr. Infante Patient is a 78 yr old male with PMH rectal abscess, C. diff, colitis, DVT, CAD with coronary stents, prostate cancer s/p robotic reconstruction, GERD, hyperlipidemia, pacemaker, and hypertension who [place] [facility] [place] 2 days of intermittent RUQ abdominal pain. He states that he had a similar episode 2 weeks ago which resolved spontaneously. Patient endorses nausea and constipati on but no vomiting, blood in stool, fevers or chills. He denies any association with eating. Otherwise denies MANUEL, Chest pain, SOB and dizziness. PMH:rectal abscess, C. diff, colitis, DVT, CAD with coronary stents, prostate cancer, GERD, hyperlipidemia, pacemaker, and hypertension PSH: CEA, Cardiac cath with stent placement, Prostate reconstruction Social: denies ETOH, smoking and illicit drugs ALl: nkda [employer] Material Mover: Dr. Mora Review of Systems - Review of Systems All systems: reviewed and no additional remarkable complaints except (as per HPI) Past Patient History - Infectious Disease Hx of Infectious Diseases: None - Tetanus Immunizations Tetanus Immunization: Unknown - Past Medical History & Family History Past Medical History?: Yes - Past Social History Smoking Status: Former Smoker - CARDIAC Hx Pacemaker: Yes (PT. DOES NOT KNOW SPECIFIC TYPE) - PULMONARY Hx Respiratory Disorders: Yes (SMOKED CIGARETTES QUIT 2011) Hx Pneumonia: Yes - NEUROLOGICAL Hx Paralysis: No - HEENT Hx HEENT Problems: Yes - RENAL Hx Chronic Kidney Disease: Yes Other/Comment: renal stent 2013 - ENDOCRINE/METABOLIC Hx Endocrine Disorders: No - HEMATOLOGICAL/ONCOLOGICAL Hx Blood Transfusions: No Hx Blood Transfusion Reaction: No - INTEGUMENTARY Hx Dermatological Problems: Yes Other/Comment: POORLY HEALING SURGICAL WOUND TO BUTOCK - MUSCULOSKELETAL/RHEUMATOLOGICAL Hx Musculoskeletal Disorders: No - GASTROINTESTINAL Hx Gastrointestinal Disorders: Yes (LOWER GI BLEED/RECTAL BLEED,C DIFF COLITIS,SPASTIC COLON,RECTAL ABSCESS,) Hx Constipation: Yes Hx Diverticulitis: Yes (DIVERTICULOSIS) Hx Gastritis: Yes Other/Comment: PERIANAL ABSCESS -I/D WITH DEBRIDEMENT 12-27-16 SBO 2016 - GENITOURINARY/GYNECOLOGICAL Hx Genitourinary Disorders: Yes (RENAL STENT) Hx Prostate Problems: Yes (PROSTATE CA WITH ROBOTIC SX RECONSTRUCTION) Hx Reproductive Disorders: Yes (PROSTATE CA -ROBOTIC SX) - PSYCHIATRIC Hx Emotional Abuse: No Hx Physical Abuse: No Hx Substance Use: No - SURGICAL HISTORY Other/Comment: PROSTATE, PICC, RECTAL ABSCESS, BACK SURGERY, RENAL ARTERY STENT - ANESTHESIA Hx Anesthesia Reactions: No Hx Malignant Hyperthermia: No Meds Allergies/Adverse Reactions: Allergies Allergy/AdvReac Type Severity Reaction Status Date / Time No Known Allergies Allergy Verified 10/16/18 14:10 - Medications Medications: Current Medications Acetaminophen (Tylenol 325mg Tab) 650 mg PO Q6H PRN PRN Reason: Fever >100.4 F Atorvastatin Calcium (Lipitor) 40 mg PO DIN [facility] Cholecalciferol (Vitamin D) 1,000 intlu PO DAILY [facility] Docusate Sodium (Colace) 100 mg PO DAILY [facility] Sodium Chloride (Sodium Chloride 0.9%) 1,000 mls @ 75 mls/hr IV .[id number] STA Stop: 10/16/18 23:30 Last Admin: 10/16/18 10:43 Dose: 75 mls/hr Ceftriaxone Sodium (Rocephin 1 Gram Ivpb) 1 gm in 100 mls @ 100 mls/hr IVPB DAILY [facility]; Protocol Metronidazole (Flagyl) 500 mg in 100 mls @ 100 mls/hr IVPB Q8 [facility]; Protocol Sodium Chloride (Sodium Chloride 0.9%) 1,000 mls @ 100 mls/hr IV .Q10H [facility] Ondansetron HCl (Zofran Inj) 4 mg IVP Q4H PRN PRN Reason: Nausea/Vomiting Physical Exam - Constitutional Appears: Well, Non-toxic, No Acute Distress - Head Exam Head Exam: ATRAUMATIC - Eye Exam Eye Exam: EOMI - ENT Exam ENT Exam: Mucous Membranes Moist - Respiratory Exam Respiratory Exam: NORMAL BREATHING PATTERN - Cardiovascular Exam Cardiovascular Exam: REGULAR RHYTHM - GI/Abdominal Exam GI & Abdominal Exam: Guarding (RUQ), Soft, Tenderness (RUQ) Additional comments: + osman's sign - Extremities Exam Extremities exam: Negative for: calf tenderness - Neurological Exam Neurological exam: Alert, Oriented x3 - Psychiatric Exam Psychiatric exam: Normal Affect, Normal Mood - Skin Skin Exam: Dry, Intact, Normal Color, Warm Results - Vital Signs Recent Vital Signs: Last Vital Signs Temp 97.3 F L 10/16/18 09:32 Pulse 60 10/16/18 14:54 Resp 16 10/16/18 14:54 BP 156/73 H 10/16/18 14:54 Pulse Ox 96 10/16/18 14:54 - Labs Result Diagrams: 10/16/18 10:25 10/16/18 10:25 Labs: Laboratory Results - last 24 hr 10/16/18 10/16/18 10/16/18 10:25 10:25 10:25 WBC 10.5 RBC 5.24 Hgb 16.5 D Hct 47.3 MCV 90.3 MCH 31.5 MCHC 34.9 RDW 12.8 Plt Count 299 MPV 10.8 Neut % (Auto) 69.9 H Lymph % (Auto) 20.2 L [place] % (Auto) 9.0 H Eos % (Auto) 0.7 L Baso % (Auto) 0.2 Lymph # (Auto) 2.1 [place] # (Auto) 0.9 H Eos # (Auto) 0.1 Baso # (Auto) 0.02 Absolute Neuts (auto) 7.33 H PT 13.5 H INR 1.19 APTT 31.5 Sodium 136 Potassium 4.7 Chloride 98 Carbon Dioxide 30 Anion Gap 12 BUN 30 H Creatinine 1.7 H Est GFR ( Amer) 48 Est GFR (Non-Af Amer) 39 Random Glucose 148 H Calcium 9.7 Total Bilirubin 1.5 H AST 25 ALT 12 Alkaline Phosphatase 64 Total Protein 7.8 Albumin 4.2 Globulin 3.6 Albumin/Globulin Ratio 1.2 Lipase 38 Blood Type Antibody Screen BBK History Checked 10/16/18 10:25 WBC RBC Hgb Hct MCV MCH MCHC RDW Plt Count MPV Neut % (Auto) Lymph % (Auto) [place] % (Auto) Eos % (Auto) Baso % (Auto) Lymph # (Auto) [place] # (Auto) Eos # (Auto) Baso # (Auto) Absolute Neuts (auto) PT INR APTT Sodium Potassium Chloride Carbon Dioxide Anion Gap BUN Creatinine Est GFR ( Amer) Est GFR (Non-Af Amer) Random Glucose Calcium Total Bilirubin AST ALT Alkaline Phosphatase Total Protein Albumin Globulin Albumin/Globulin Ratio Lipase Blood Type A POSITIVE Antibody Screen Negative BBK History Checked Patient has bt Assessment & Plan - Assessment and Plan (Free Text) Assessment: 78 yr old male with likely acute cholecystitis Plan: Abdominal US HIDA will need Cardiac clearance from Dr. Mora NPO after midnight discussed plan with Dr. Naresh Bai, PGY 1 - Date & Time Date: 10/16/18 Time: 13:35
--- NOTE | 2018-10-16 15:13 | US ---
Date of service: 10/16/2018 HISTORY: r/o cholithiasis, cholecystitis COMPARISON: None. TECHNIQUE: Sonographic evaluation of the abdomen. FINDINGS: LIVER: Measures 14.0 cm. Increased echogenicity of the liver parenchyma. No mass. No intrahepatic bile duct dilatation. GALLBLADDER: Small stones are seen in the gallbladder including the gallbladder neck.. There is also mural thickening. The gallbladder wall measures 6.6 mm. There is no focal tenderness. COMMON BILE DUCT: Measures 4 mm. No stones. No dilatation. PANCREAS: Not visualized RIGHT KIDNEY: Measures 10.4 x 6.0 x 5.2cm. Normal echogenicity. No calculus, mass, or hydronephrosis. LEFT KIDNEY: Measures 9.2 x 5.0 x 5.2cm. Normal echogenicity. No calculus, mass, or hydronephrosis. SPLEEN: Normal in size and contour. No mass. 13.0 x 5.3 x 4.6 cm. A small 2 cm accessory spleen is also seen. AORTA: No aneurysmal dilatation. IVC: Unremarkable. OTHER FINDINGS: None. IMPRESSION: Small stones are seen in the gallbladder including the gallbladder neck.. There is also mural thickening. The gallbladder wall measures 6.6 mm. There is no focal tenderness. Possible cholecystitis
[2018-10-16 16:28] LABS: BASO # 0.02 K/mm3 (0.0-2.0); BASO % 0.2 % (0.0-3.0); EOS # 0.2 (0.0-0.7); EOS % 1.8 % (1.5-5.0); HEMOGLOBIN 16.7 g/dL (14.0-18.0); LYMPH # 3.4 (1.2-3.4); MEAN CELL VOLUME 90.8 fl (80.0-105.0); MEAN CORPUSCULAR HEMOGLOBIN 31.4 pg (25.0-35.0); MEAN CORPUSCULAR HGB CONC 34.6 g/dl (31.0-37.0); MEAN PLATELET VOLUME 11.1 fl (7.0-11.0); MONO # 0.9 (0.1-0.6); MONO % 7.3 % (1.0-6.0); RBC 5.32 10^6/uL (3.5-6.1); RED CELL DISTRIBUTION WIDTH 13.1 % (11.5-14.5); WHITE BLOOD COUNT 12.7 10^3/uL (4.5-11.0)
[2018-10-16 20:18] VITALS: BMI 31.0
[2018-10-16] MEDS ORDERED: Influenza Vaccine 60 mcg/0.5 mL SYR (4YR UP) IM ONE (20:18)
[2018-10-16] MEDS ORDERED: Pneumococcal 23-Valent Vaccine IM ONE (20:18)
[2018-10-16] MEDS: metroNIDAZOLE IV 500 mg/100 ml 500 MG/100 ML BAG IVPB SCH (22:17)
--- NOTE | 2018-10-17 01:33 | CON ---
DATE: 10/16/2018 REASON FOR CONSULTATION: Preoperative evaluation, risk stratification with possible cholecystectomy, history of coronary artery disease, history of pacemaker, and history of PTCA. BRIEF CLINICAL HISTORY: This is a 78-year-old male with past medical history significant for coronary artery disease, status post stent, history of complete , status post permanent pacemaker, history of recent rectal abscess, history of DVT in the past, who admitted here after having abdominal pain. Working diagnosis is possible acute cholecystitis, may require OR for cholecystectomy, so Cardiology consult was called for preop evaluation and risk stratification. The patient denies any chest pain. Denies any shortness of breath. Denies any palpitation. PAST MEDICAL HISTORY: Significant for coronary artery disease, history of permanent pacemaker, history of PTCA in 2009, status post repeat catheterization in 2013, patent stent, hypertension, and hyperlipidemia. The patient had history of DVT in the past, after having the rectal abscess, the patient had incision and drainage in 01/2017. PREVIOUS CARDIAC WORKUP FOLLOWS: The patient had PTCA of circumflex [place] [address] Spencer Francois. Repeat catheterization on 03/26/2014, patent stent, status post permanent pacemaker 02/20/2014, single chamber VVI [employer], history of carotid artery endarterectomy 02/22/2016 at [facility], left carotid artery endarterectomy. Most recently, the patient had stress test 03/01/2015 is essentially negative for ischemia, mild MR, mild TR, and mild AR on echo. Most recent MUGA scan was done, ejection fraction 56% dated 03/17/2015, moderate aortic regurgitation. IRAIS on 10/26/2016 with normal IRAIS and PVR. The patient had a repeat echocardiography on 01/01/2017 that revealed ejection fraction 55% to 60 %, ggki-fd-ldosyrwk aortic regurgitation, ezqx-um-wxfnquvb valvular aortic stenosis, mild aortic stenosis, keqa-mo-icajhxol mitral regurgitation, left ventricular systolic function is normal, RV systolic pressure noiv-rt-lkhmswxx tricuspid regurgitation, and RV systolic pressure of 39. CURRENT MEDICATIONS: The patient is taking CoQ10 multivitamin, hydrochlorothiazide, Avalide, Colace, cholecalciferol, atorvastatin, and aspirin. REVIEW OF SYSTEMS: As per HPI ALLERGIES: NO KNOWN DRUG ALLERGIES. PHYSICAL EXAMINATION: VITAL SIGNS: As follows; height of the patient 5 feet 9 inches, weight of the patient 210 pounds, and body mass index 32 kg/m2. Rest of the vitals; temperature afebrile, heart rate , and blood pressure 135/67. HEENT: PERRLA. Extraocular muscles intact. NECK: Supple. No carotid bruits. No thyromegaly. CHEST: Clear to auscultation. HEART: S1 and S2 regular. ABDOMEN: Soft. EXTREMITIES: Clubbing and cyanosis negative. LABORATORY DATA: Blood workup as follows: WBC of 12.7, hemoglobin , hematocrit 48.3, and platelet count 331. Chemistry shows a sodium of 133, potassium 4.7, chloride of 90, CO2 of 30, anion gap 12, BUN of 30, and creatinine of 1.7. Albumin 1.5. EKG shows underlying normal sinus, but V-paced rhythm. IMPRESSION AND PLAN: This is a 78-year-old male with past medical history significant for coronary artery disease, status post percutaneous transluminal coronary angioplasty in 2012 with circumflex followed by repeat catheterization, patent stent. Recent stress test in 2014 was normal. History of sick sinus syndrome, status post permanent pacemaker, single chamber VVI. History of rectal abscess in 2016 complicated by wound debridement, complicated by bilateral pulmonary embolism, requiring long-term anticoagulation for 6 months. Now, the patient is off anticoagulation, admitted with acute cholecystitis, may require surgical intervention and exploration. Given these multiple comorbidity, the patient is eekqlkdp-ut-laom risk for surgery, but no absolute contraindication. No evidence of acute ischemia. No evidence of arrhythmia. No evidence of congestive heart failure. So, the patient is cleared to go from cardiology point of view with zbaqxwqi-po-yelw risk, but again no absolute contraindication, suggest to continue perioperative antibiotic. We will start low-dose beta-kim, first dose now and continue. History of also carotid artery endarterectomy in 2014. We will follow with you. Thank you Dr. Orantes/Dr. Zamora for providing us the opportunity in taking care of the patient, [place]. Gale Mora MD
[2018-10-17] MEDS: Sodium Chloride 0.9% 1,000 ML IV SCH ×2 (05:50→11:00)
[2018-10-17] MEDS: metroNIDAZOLE IV 500 mg/100 ml 500 MG/100 ML BAG IVPB SCH ×3 (05:51→22:39)
--- NOTE | 2018-10-17 07:15 | CP.PCM.PN ---
<Mely Powell L - Last Filed: 10/17/18 15:43> Subjective - Date & Time of Evaluation Date of Evaluation: 10/17/18 Time of Evaluation: 07:13 - Subjective Subjective: Resident Progress Note for Hospitalist Service Patient examined at bedside. No acute events overnight. Patient reports improvement in abdominal pain. Denies fevers, chills, chest pain, shortness of breath, diarrhea, dysuria. Plan for OR today. Objective - Vital Signs/Intake and Output Vital Signs (last 24 hours): Temp Pulse Resp BP Pulse Ox 98.7 F 66 18 110/62 98 10/16/18 21:02 10/16/18 22:14 10/16/18 21:02 10/16/18 22:14 10/16/18 21:02 Intake and Output: 10/17/18 10/17/18 06:59 18:59 Intake Total 180 Output Total 0 Balance 180 - Medications Medications: Current Medications Acetaminophen (Tylenol 325mg Tab) 650 mg PO Q6H PRN PRN Reason: Fever >100.4 F Atorvastatin Calcium (Lipitor) 40 mg PO DIN [facility] Last Admin: 10/16/18 17:59 Dose: Not Given Cholecalciferol (Vitamin D) 1,000 intlu PO DAILY [facility] Docusate Sodium (Colace) 100 mg PO DAILY [facility] Ceftriaxone Sodium (Rocephin 1 Gram Ivpb) 1 gm in 100 mls @ 100 mls/hr IVPB DAILY [facility]; Protocol Metronidazole (Flagyl) 500 mg in 100 mls @ 100 mls/hr IVPB Q8 [facility]; Protocol Last Admin: 10/17/18 05:51 Dose: 100 mls/hr Sodium Chloride (Sodium Chloride 0.9%) 1,000 mls @ 100 mls/hr IV .Q10H [facility] Last Admin: 10/17/18 05:50 Dose: 100 mls/hr Metoprolol Tartrate (Lopressor) 25 mg PO BID [facility] Last Admin: 10/16/18 22:14 Dose: Not Given Ondansetron HCl (Zofran Inj) 4 mg IVP Q4H PRN PRN Reason: Nausea/Vomiting - Labs Labs: 10/16/18 15:45 10/16/18 10:25 PT 13.5 SECONDS (9.4-12.5) H 10/16/18 10:25 INR 1.19 10/16/18 10:25 APTT 31.5 Seconds (26.9-38.3) 10/16/18 10:25 - Constitutional Appears: Non-toxic, No Acute Distress - Head Exam Head Exam: ATRAUMATIC, NORMOCEPHALIC - Eye Exam Eye Exam: EOMI, Normal appearance, PERRL - ENT Exam ENT Exam: Mucous Membranes Dry - Neck Exam Neck exam: Positive for: Full Rom - Respiratory Exam Respiratory Exam: Clear to Auscultation Bilateral, NORMAL BREATHING PATTERN. absent: Accessory Muscle Use, Rales, Rhonchi, Wheezes, Respiratory Distress - Cardiovascular Exam Cardiovascular Exam: REGULAR RHYTHM, +S1, +S2. absent: Tachycardia - GI/Abdominal Exam GI & Abdominal Exam: Distended, Normal Bowel Sounds, Soft. absent: Firm, Guarding, Rebound, Rigid, Tenderness - Extremities Exam Extremities exam: Positive for: normal capillary refill, normal inspection, pedal pulses present. 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 Plan: Cholecystitis - afebrile, no leukocytosis - CT abd/pelvis shows dense sludge in gallbladder, inflammatory changes around gallbladder suspicious for acute cholecystitis - abdominal ultrasound shows cholelithiasis, mural thickening, possible cholecystitis - elevated total bilirubin - Flagyl, Rocephin - NS @ 100 ccs/ hr - Zofran PRN - NPO - Surgery consulted. Appreciate recs - per Cardiology no absolute contraindication DENISE - likely due to poor PO intake - IVF - continue to monitor Constipation - continue home Colace Hypertension - hold home BP meds due to volume depletion - Metoprolol 25 mg PO BID Hyperlipidemia - continue home Lipitor PPX - SCDs Case reviewed with Dr. Noah Powell PGY-1 <Dashawn Zamora - Last Filed: 10/17/18 17:27> Objective - Vital Signs/Intake and Output Vital Signs (last 24 hours): Temp Pulse Resp BP Pulse Ox 98.7 F 64 18 116/61 98 10/17/18 14:00 10/17/18 14:00 10/17/18 14:00 10/17/18 14:00 10/17/18 14:00 Intake and Output: 10/17/18 10/17/18 06:59 18:59 Intake Total 180 0 Output Total 0 Balance 180 0 - Medications Medications: Current Medications Acetaminophen (Tylenol 325mg Tab) 650 mg PO Q6H PRN PRN Reason: Fever >100.4 F Atorvastatin Calcium (Lipitor) 40 mg PO DIN [facility] Last Admin: 10/16/18 17:59 Dose: Not Given Cholecalciferol (Vitamin D) 1,000 intlu PO DAILY [facility] Last Admin: 10/17/18 09:51 Dose: 1,000 intlu Docusate Sodium (Colace) 100 mg PO DAILY [facility] Last Admin: 10/17/18 09:52 Dose: 100 mg Ceftriaxone Sodium (Rocephin 1 Gram Ivpb) 1 gm in 100 mls @ 100 mls/hr IVPB DAILY [facility]; Protocol Last Admin: 10/17/18 09:52 Dose: 100 mls/hr Metronidazole (Flagyl) 500 mg in 100 mls @ 100 mls/hr IVPB Q8 [facility]; Protocol Last Admin: 10/17/18 05:51 Dose: 100 mls/hr Sodium Chloride (Sodium Chloride 0.9%) 1,000 mls @ 100 mls/hr IV .Q10H [facility] Last Admin: 10/17/18 05:50 Dose: 100 mls/hr Metoprolol Tartrate (Lopressor) 25 mg PO BID [facility] Last Admin: 10/17/18 09:52 Dose: 25 mg Ondansetron HCl (Zofran Inj) 4 mg IVP Q4H PRN PRN Reason: Nausea/Vomiting - Labs Labs: 10/17/18 07:30 10/17/18 07:30 PT 13.5 SECONDS (9.4-12.5) H 10/16/18 10:25 INR 1.19 10/16/18 10:25 APTT 31.5 Seconds (26.9-38.3) 10/16/18 10:25 Attending/Attestation - Attestation I have personally seen and examined this patient.: Yes I have fully participated in the care of the patient.: Yes I have reviewed all pertinent clinical information, including history, physical exam and plan: Yes Notes (Text): 10/17/18 17:25 Attending note; Patient seen and examined with resident. Patient is alert and awake. Complaining of mild right upper quadrant abdominal pain. Denies any fevers, chills. Complaining of nausea. 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 1. Right upper quadrant pain; CAT scan showed sludge in the gallbladder area with inflammatory changes surrounding the gallbladder suspicious of cholecystitis. Patient is n.p.o.. Started on IV fluids. Continue IV Rocephin and Flagyl. Surgery evaluation appreciated. Plan for OR today. Abdominal ultrasound showed small stones in the gallbladder/neck area. Mural thickening of the gallbladder wall measuring 6.6 mm. HIDA scan showed nonvisualization of gallbladder consistent with acute cholecystitis. 2. coronary artery disease and stent placement. Aspirin on hold. Cardiology evaluation appreciated. Patient is moderate risk for planned procedure. 3. Hypertension; Patient is taking avelide at home. 4. Status post pacemaker placement. EKG showed paced rhythm. Monitor closely. We will follow-up with surgery. 10/17/18 17:26
[2018-10-17 07:52] LABS: BASO # 0.02 K/mm3 (0.0-2.0); BASO % 0.2 % (0.0-3.0); EOS # 0.2 (0.0-0.7); EOS % 2.9 % (1.5-5.0); LYMPH # 2.2 (1.2-3.4); LYMPH % 26.6 % (22.0-35.0); MEAN CELL VOLUME 91.1 fl (80.0-105.0); MEAN CORPUSCULAR HEMOGLOBIN 30.7 pg (25.0-35.0); MEAN CORPUSCULAR HGB CONC 33.7 g/dl (31.0-37.0); MEAN PLATELET VOLUME 10.8 fl (7.0-11.0); MONO # 0.7 (0.1-0.6); MONO % 8.4 % (1.0-6.0); RBC 4.5 10^6/uL (3.5-6.1); RED CELL DISTRIBUTION WIDTH 13.1 % (11.5-14.5); WHITE BLOOD COUNT 8.3 10^3/uL (4.5-11.0)
[2018-10-17 07:53] LABS: HEMOGLOBIN 13.8 g/dL (14.0-18.0)
[2018-10-17 08:04] LABS: ALBUMIN 3.4 g/dL (3.0-4.8); CALCIUM 8.7 mg/dL (8.4-10.5)
--- NOTE | 2018-10-17 08:25 | RAD ---
Date of service: 10/17/2018 HISTORY: pre op COMPARISON: Portable chest 02/27/2017. FINDINGS: LUNGS: No active pulmonary disease. PLEURA: No significant pleural effusion identified, no pneumothorax apparent. CARDIOVASCULAR: No aortic atherosclerotic calcification present. Stable cardiac size. Unipolar permanent cardiac pacemaker reiterated. No pulmonary vascular congestion. OSSEOUS STRUCTURES: No significant abnormalities. VISUALIZED UPPER ABDOMEN: Mammilated right hemidiaphragm reiterated. OTHER FINDINGS: None. IMPRESSION: No interval acute cardiopulmonary disease appreciated. Pacemaker again evident.
--- NOTE | 2018-10-17 08:29 | NM ---
Date of service: 10/16/2018 PROCEDURE: Nuclear Medicine Hepatobiliary Scan HISTORY: suspicious for cholecystitis COMPARISON: None available. TECHNIQUE: 6.01 mCi of technetium 99m Mebrofenin was administered intravenously. Planar images of the abdomen were obtained at 5 min intervals to 60 mins. Delayed images were also obtained. FINDINGS: LIVER: Timely and homogenous uptake. COMMON BILE DUCT: identified at 5 mins. GALLBLADDER: Not visualized even on delayed images SMALL BOWEL: Identified at 15 mins. The report concurs with the preliminary [facility] report IMPRESSION: Nonvisualization of the gallbladder consistent with acute cholecystitis
--- NOTE | 2018-10-17 08:47 | CP.PCM.PN ---
Subjective - Date & Time of Evaluation Date of Evaluation: 10/17/18 Time of Evaluation: 07:10 - Subjective Subjective: Awake, alert, no distress Reason for consultation and follow up: Cardiac evaluation and pre-op evaluation and risk stratification for possible cholecystectomy, history of coronary artery disease with stents, PPM Seen and examined by me and Dr. Mora Objective - Vital Signs/Intake and Output Vital Signs (last 24 hours): Temp Pulse Resp BP Pulse Ox 98.7 F 66 18 110/62 98 10/16/18 21:02 10/16/18 22:14 10/16/18 21:02 10/16/18 22:14 10/16/18 21:02 Intake and Output: 10/17/18 10/17/18 06:59 18:59 Intake Total 180 Output Total 0 Balance 180 - Medications Medications: Current Medications Acetaminophen (Tylenol 325mg Tab) 650 mg PO Q6H PRN PRN Reason: Fever >100.4 F Atorvastatin Calcium (Lipitor) 40 mg PO DIN [facility] Last Admin: 10/16/18 17:59 Dose: Not Given Cholecalciferol (Vitamin D) 1,000 intlu PO DAILY [facility] Docusate Sodium (Colace) 100 mg PO DAILY [facility] Ceftriaxone Sodium (Rocephin 1 Gram Ivpb) 1 gm in 100 mls @ 100 mls/hr IVPB DAILY [facility]; Protocol Metronidazole (Flagyl) 500 mg in 100 mls @ 100 mls/hr IVPB Q8 [facility]; Protocol Last Admin: 10/17/18 05:51 Dose: 100 mls/hr Sodium Chloride (Sodium Chloride 0.9%) 1,000 mls @ 100 mls/hr IV .Q10H [facility] Last Admin: 10/17/18 05:50 Dose: 100 mls/hr Metoprolol Tartrate (Lopressor) 25 mg PO BID [facility] Last Admin: 10/16/18 22:14 Dose: Not Given Ondansetron HCl (Zofran Inj) 4 mg IVP Q4H PRN PRN Reason: Nausea/Vomiting - Labs Labs: 10/17/18 07:30 10/17/18 07:30 PT 13.5 SECONDS (9.4-12.5) H 10/16/18 10:25 INR 1.19 10/16/18 10:25 APTT 31.5 Seconds (26.9-38.3) 10/16/18 10:25 - Constitutional Appears: Non-toxic, No Acute Distress - Head Exam Head Exam: NORMAL INSPECTION, NORMOCEPHALIC - Eye Exam Eye Exam: Normal appearance Pupil Exam: NORMAL ACCOMODATION - ENT Exam ENT Exam: Mucous Membranes Moist, Normal Exam - Respiratory Exam Respiratory Exam: Clear to Ausculation Bilateral, NORMAL BREATHING PATTERN - Cardiovascular Exam Cardiovascular Exam: +S1, +S2 Additional comments: PPM - GI/Abdominal Exam GI & Abdominal Exam: Soft, Normal Bowel Sounds - Extremities Exam Extremities Exam: Full ROM, Normal Capillary Refill - Neurological Exam Neurological Exam: Alert, Awake, Oriented x3 - Psychiatric Exam Psychiatric exam: Normal Affect, Normal Mood - Skin Skin Exam: Dry, Normal Color, Warm Assessment and Plan - Assessment and Plan (Free Text) Assessment: A 77 year old male who came in to the ER due to mid lower abdominal pain. History of coronary artery disease post cardiac stents in 2012,third degree AV block requiring single chamber Medtronic VVI permanent pacemaker in 02/20/2014, rectal abscess in 2016 complicated by wound debridement and pulmonary embolism requiring anticoagulation for 6 months, colitis, GERD, GI bleed, deep vein thrombosis, prostate cancer with prostatectomy, renal stents hyperlipidemia, hypertension,former smoker, left carotid endarterectomy 02/22/16.Off anticoagu lation now. Admitted for acute cholecystitis. Consult was called for cardiac clearance for possible cholecystectomy. Given multiple co-morbidities, patient is moderate to high risk for surgery but no absolute contraindication. No evidence of heart failure or myocardial ischemia. Chest X ray done today- unremarkable. Plan: For cholecystectomy Cleared for surgery with moderate to high risk No distress Cardiac status stable Heart rate controlled Blood pressure controlled On Lipitor 40 mg daily, Lopressor 25 mg BID Elevated BUN/Creatinine Continue IV hydration Continue current medications Continue current treatment Continue IV antibiotics as ordered Will follow up post operatively Plan and treatment discussed with Dr. Mora
[2018-10-17] MEDS: Cholecalciferol 1,000 INTLU TAB PO SCH (09:51)
[2018-10-17] MEDS: cefTRIAXone 1 gm 1 GM/100 ML BAG IVPB SCH (09:52)
[2018-10-17] MEDS ORDERED: Bupivacaine 0.5% 50 ML IJ ONE ×2 (12:37→17:35)
[2018-10-17] MEDS ORDERED: Iohexol 240 (50 ml) ONE (12:37)
[2018-10-17] MEDS ORDERED: Rocuronium 10 mg/ml (5 ml) ONE ×2 (14:24→16:48)
[2018-10-17] MEDS ORDERED: Succinylcholine 200 mg/10 ml Inj IV ONE (14:24)
[2018-10-17] MEDS ORDERED: Etomidate 20 mg/10ml Inj IV ONE (14:24)
[2018-10-17] MEDS ORDERED: metroNIDAZOLE IV 500 mg/100 ml 500 MG/100 ML BAG ONE (15:52)
[2018-10-17] MEDS ORDERED: Neostigmine Methylsulfate 3mg/3ml Syringe IV ONE (18:14)
[2018-10-17] MEDS ORDERED: HYDROmorphone 0.5 mg/0.5 ml ISec IVP PRN (18:40)
[2018-10-17] MEDS ORDERED: HYDROmorphone 0.5 mg/0.5 ml ISec ONE (18:44)
[2018-10-17] MEDS ORDERED: Lactated Ringer's 1,000 ML IV SCH (18:45)
[2018-10-17] MEDS ORDERED: Oxycodone/Acetaminophen 5/325 mg Tab PO PRN (19:02)
--- NOTE | 2018-10-17 19:05 | PCM.SURG1 ---
Surgeon's Initial Post Op Note - Surgeon's Notes Surgeon: Dr. Infante Fisher Diver Net: Dr. Merchant PGY4; Dr. Schafer PGY3; Dr. Arizmendi PGY2 Type of Anesthesia: General Endo, Block Regional, Local Anesthesia Administered By: Dr. Mendiola Pre-Operative Diagnosis: Acute on Chronic Cholecystitis Operative Findings: See operative report Post-Operative Diagnosis: Same Operation Performed: Laparascopic Converted to Open Cholecystectomy Specimen/Specimens Removed: Gallbladder Estimated Blood Loss: EBL {In ML}: 200 Blood Products Given: N/A Drains Used: Thien Post-Op Condition: Good Date of Surgery/Procedure: 10/17/18 Time of Surgery/Procedure: 19:05
[2018-10-17 21:50] LABS: BASO # 0.01 K/mm3 (0.0-2.0); BASO % 0.1 % (0.0-3.0); EOS # 0.1 (0.0-0.7); EOS % 1.2 % (1.5-5.0); HEMOGLOBIN 13.1 g/dL (14.0-18.0); LYMPH # 1.7 (1.2-3.4); LYMPH % 18.2 % (22.0-35.0); MEAN CELL VOLUME 91.3 fl (80.0-105.0); MEAN CORPUSCULAR HEMOGLOBIN 30.8 pg (25.0-35.0); MEAN CORPUSCULAR HGB CONC 33.8 g/dl (31.0-37.0); MEAN PLATELET VOLUME 10.8 fl (7.0-11.0); MONO # 0.8 (0.1-0.6); MONO % 8.3 % (1.0-6.0); RBC 4.25 10^6/uL (3.5-6.1); WHITE BLOOD COUNT 9.2 10^3/uL (4.5-11.0)
[2018-10-17] MEDS: HYDROmorphone 0.5 mg/0.5 ml ISec IVP PRN (23:56)
[2018-10-18] MEDS: HYDROmorphone 0.5 mg/0.5 ml ISec IVP PRN (04:17)
[2018-10-18] MEDS: metroNIDAZOLE IV 500 mg/100 ml 500 MG/100 ML BAG IVPB SCH ×3 (06:09→21:18)
[2018-10-18] MEDS ORDERED: HYDROmorphone 1 mg/ml ISec IVP STA (06:25)
--- NOTE | 2018-10-18 06:53 | CP.PCM.PN ---
<Mely Powell L - Last Filed: 10/18/18 12:53> Subjective - Date & Time of Evaluation Date of Evaluation: 10/18/18 Time of Evaluation: 06:50 - Subjective Subjective: Resident Progress Note for Hospitalist Service Patient examined at bedside. Patient is s/p laparoscopic converted to open cholecystectomy POD#1. States his abdominal pain is well controlled at this time. Has not passed flatus. Denies fevers, chills, chest pain, shortness of breath, nausea, vomiting. Objective - Vital Signs/Intake and Output Vital Signs (last 24 hours): Temp Pulse Resp BP Pulse Ox 98.3 F 60 16 170/66 H 97 10/17/18 18:25 10/18/18 06:37 10/17/18 20:10 10/18/18 06:37 10/17/18 20:10 Intake and Output: 10/17/18 10/18/18 18:59 06:59 Intake Total 100 Balance 100 - Medications Medications: Current Medications Acetaminophen (Tylenol 325mg Tab) 650 mg PO Q6H PRN PRN Reason: Fever >100.4 F Atorvastatin Calcium (Lipitor) 40 mg PO DIN [facility] Last Admin: 10/16/18 17:59 Dose: Not Given Cholecalciferol (Vitamin D) 1,000 intlu PO DAILY [facility] Last Admin: 10/17/18 09:51 Dose: 1,000 intlu Docusate Sodium (Colace) 100 mg PO DAILY [facility] Last Admin: 10/17/18 09:52 Dose: 100 mg Heparin Sodium (Porcine) (Heparin) 5,000 units SC Q8 [facility]; Protocol Hydromorphone HCl (Dilaudid) 0.5 mg IVP Q4H PRN PRN Reason: Pain, moderate (4-7) Last Admin: 10/18/18 04:17 Dose: 0.5 mg Ceftriaxone Sodium (Rocephin 1 Gram Ivpb) 1 gm in 100 mls @ 100 mls/hr IVPB MAX LY [facility]; Protocol Last Admin: 10/17/18 09:52 Dose: 100 mls/hr Metronidazole (Flagyl) 500 mg in 100 mls @ 100 mls/hr IVPB Q8 [facility]; Protocol Last Admin: 10/18/18 06:09 Dose: 100 mls/hr Lactated Ringer's (Lactated Ringer's) 1,000 mls @ 100 mls/hr IV .Q10H [facility] Metoprolol Tartrate (Lopressor) 25 mg PO BID [facility] Last Admin: 10/18/18 06:37 Dose: 25 mg Ondansetron HCl (Zofran Inj) 4 mg IVP Q4H PRN PRN Reason: Nausea/Vomiting Oxycodone/Acetaminophen (Percocet 5/325 Mg Tab) 1 tab PO Q4H PRN PRN Reason: Pain, moderate (4-7) Stop: 10/20/18 19:03 - Labs Labs: 10/17/18 21:40 10/17/18 07:30 PT 13.5 SECONDS (9.4-12.5) H 10/16/18 10:25 INR 1.19 10/16/18 10:25 APTT 31.5 Seconds (26.9-38.3) 10/16/18 10:25 - Constitutional Appears: Non-toxic, No Acute Distress - Head Exam Head Exam: ATRAUMATIC, NORMOCEPHALIC - Eye Exam Eye Exam: EOMI, Normal appearance, PERRL - ENT Exam ENT Exam: Mucous Membranes Dry - Neck Exam Neck exam: Positive for: Full Rom - Respiratory Exam Respiratory Exam: Clear to Auscultation Bilateral, NORMAL BREATHING PATTERN. absent: Accessory Muscle Use, Rales, Rhonchi, Wheezes, Respiratory Distress - Cardiovascular Exam Cardiovascular Exam: REGULAR RHYTHM, +S1, +S2. absent: Tachycardia - GI/Abdominal Exam GI & Abdominal Exam: Distended, Normal Bowel Sounds, Soft. absent: Firm, Guarding, Rebound, Rigid, Tenderness Additional comments: surgical dressing C/D/I, jannette drain - Extremities Exam Extremities exam: Positive for: normal capillary refill, normal inspection, pedal pulses present. 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 Plan: Cholecystitis - s/p cholecystectomy POD#1 - afebrile, no leukocytosis - CT abd/pelvis shows dense sludge in gallbladder, inflammatory changes around gallbladder suspicious for acute cholecystitis - abdominal ultrasound shows cholelithiasis, mural thickening, possible cholecystitis - total bilirubin trending down - Flagyl, Rocephin - LR @ 100 ccs/ hr - Zofran PRN - Percocet, Dilaudid PRN - Liquid diet - Surgery following - per Cardiology no absolute contraindication for surgery - PT eval DENISE - likely due to poor PO intake - trending down - IVF - continue to monitor Constipation - continue home Colace Hypertension - hold home BP meds due to volume depletion - Metoprolol 25 mg PO BID Hyperlipidemia - continue home Lipitor PPX - SCDs, Heparin SC Case reviewed with Dr. Noah Powell PGY-1 <Dashawn Zamora - Last Filed: 10/18/18 17:44> Objective - Vital Signs/Intake and Output Vital Signs (last 24 hours): Temp Pulse Resp BP Pulse Ox 98.5 F 61 18 118/58 L 96 10/18/18 16:20 10/18/18 16:20 10/18/18 16:20 10/18/18 16:20 10/18/18 16:20 Intake and Output: 10/18/18 10/18/18 06:59 18:59 Intake Total 0 1200 Output Total 200 Balance -200 1200 - Medications Medications: Current Medications Acetaminophen (Tylenol 325mg Tab) 650 mg PO Q6H PRN PRN Reason: Fever >100.4 F Atorvastatin Calcium (Lipitor) 40 mg PO DIN [facility] Last Admin: 10/16/18 17:59 Dose: Not Given Cholecalciferol (Vitamin D) 1,000 intlu PO DAILY [facility] Last Admin: 10/18/18 11:02 Dose: 1,000 intlu Docusate Sodium (Colace) 100 mg PO DAILY [facility] Last Admin: 10/18/18 11:02 Dose: 100 mg Heparin Sodium (Porcine) (Heparin) 5,000 units SC Q8 [facility]; Protocol Last Admin: 10/18/18 14:32 Dose: 5,000 units Hydromorphone HCl (Dilaudid) 1 mg IVP Q4H PRN PRN Reason: Pain, severe (8-10) Last Admin: 10/18/18 14:43 Dose: 1 mg Ceftriaxone Sodium (Rocephin 1 Gram Ivpb) 1 gm in 100 mls @ 100 mls/hr IVPB DAILY [facility]; Protocol Last Admin: 10/18/18 11:02 Dose: 100 mls/hr Metronidazole (Flagyl) 500 mg in 100 mls @ 100 mls/hr IVPB Q8 [facility]; Protocol Last Admin: 10/18/18 14:29 Dose: 100 mls/hr Lactated Ringer's (Lactated Ringer's) 1,000 mls @ 100 mls/hr IV .Q10H [facility] Last Admin: 10/18/18 11:01 Dose: 100 mls/hr Metoprolol Tartrate (Lopressor) 25 mg PO BID [facility] Last Admin: 10/18/18 06:37 Dose: 25 mg Ondansetron HCl (Zofran Inj) 4 mg IVP Q4H PRN PRN Reason: Nausea/Vomiting Oxycodone/Acetaminophen (Percocet 5/325 Mg Tab) 1 tab PO Q4H PRN PRN Reason: Pain, moderate (4-7) Stop: 10/20/18 19:03 - Labs Labs: 10/18/18 17:27 10/18/18 06:20 PT 13.5 SECONDS (9.4-12.5) H 10/16/18 10:25 INR 1.19 10/16/18 10:25 APTT 31.5 Seconds (26.9-38.3) 10/16/18 10:25 Attending/Attestation - Attestation I have personally seen and examined this patient.: Yes I have fully participated in the care of the patient.: Yes I have reviewed all pertinent clinical information, including history, physical exam and plan: Yes Notes (Text): Attending note; Patient seen and examined with resident. Patient is alert and awake. Status post open cholecystectomy yesterday. Patient has VIN drain in place. Complaining of abdominal pain. Bowel sounds present. Complaining of abdominal bloating. Denies any fevers, chills. 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 1. Cholecystitis; status post open cholecystectomy. Postop day #1. Drain in place. Still with abdominal pain. Continue IV Dilaudid. Continue IV Rocephin and Flagyl. Continue clear liquid diet as tolerated. Out of bed to chair as tolerated. 2. coronary artery disease and stent placement. Stable cardiac status. Cardiology evaluation appreciated . 3. Hypertension; continue metoprolol. 4. Status post pacemaker placement. EKG showed paced rhythm. Monitor closely. We will follow-up with surgery. Upon discharge the patient will follow up with PMD .
[2018-10-18 07:27] LABS: ALB/GLOB RATIO 1.1 (1.1-1.8); ALBUMIN 3.1 g/dL (3.0-4.8); CALCIUM 8.4 mg/dL (8.4-10.5)
--- NOTE | 2018-10-18 08:08 | CP.PCM.PN ---
Subjective - Date & Time of Evaluation Date of Evaluation: 10/18/18 Time of Evaluation: 06:15 - Subjective Subjective: Awake, alert, no distress. lying in bed, complaining of surgical post op pain Reason for consultation and follow up: Cardiac evaluation and pre-op evaluation and risk stratification for possible cholecystectomy, history of coronary artery disease with stents, PPM , post cholecystectomy POD#1 Seen and examined by me and Dr. Mora Objective - Vital Signs/Intake and Output Vital Signs (last 24 hours): Temp Pulse Resp BP Pulse Ox 98.3 F 60 16 170/66 H 97 10/17/18 18:25 10/18/18 06:37 10/17/18 20:10 10/18/18 06:37 10/17/18 20:10 Intake and Output: 10/18/18 10/18/18 06:59 18:59 Intake Total 0 Output Total 200 Balance -200 - Medications Medications: Current Medications Acetaminophen (Tylenol 325mg Tab) 650 mg PO Q6H PRN PRN Reason: Fever >100.4 F Atorvastatin Calcium (Lipitor) 40 mg PO DIN [facility] Last Admin: 10/16/18 17:59 Dose: Not Given Cholecalciferol (Vitamin D) 1,000 intlu PO DAILY [facility] Last Admin: 10/17/18 09:51 Dose: 1,000 intlu Docusate Sodium (Colace) 100 mg PO DAILY [facility] Last Admin: 10/17/18 09:52 Dose: 100 mg Heparin Sodium (Porcine) (Heparin) 5,000 units SC Q8 [facility]; Protocol Hydromorphone HCl (Dilaudid) 0.5 mg IVP Q4H PRN PRN Reason: Pain, moderate (4-7) Last Admin: 10/18/18 04:17 Dose: 0.5 mg Ceftriaxone Sodium (Rocephin 1 Gram Ivpb) 1 gm in 100 mls @ 100 mls/hr IVPB DAILY [facility]; Protocol Last Admin: 10/17/18 09:52 Dose: 100 mls/hr Metronidazole (Flagyl) 500 mg in 100 mls @ 100 mls/hr IVPB Q8 [facility]; Protocol Last Admin: 10/18/18 06:09 Dose: 100 mls/hr Lactated Ringer's (Lactated Ringer's) 1,000 mls @ 100 mls/hr IV .Q10H [facility] Metoprolol Tartrate (Lopressor) 25 mg PO BID [facility] Last Admin: 10/18/18 06:37 Dose: 25 mg Ondansetron HCl (Zofran Inj) 4 mg IVP Q4H PRN PRN Reason: Nausea/Vomiting Oxycodone/Acetaminophen (Percocet 5/325 Mg Tab) 1 tab PO Q4H PRN PRN Reason: Pain, moderate (4-7) Stop: 10/20/18 19:03 - Labs Labs: 10/17/18 21:40 10/18/18 06:20 PT 13.5 SECONDS (9.4-12.5) H 10/16/18 10:25 INR 1.19 10/16/18 10:25 APTT 31.5 Seconds (26.9-38.3) 10/16/18 10:25 - Constitutional Appears: Non-toxic, No Acute Distress - Head Exam Head Exam: NORMAL INSPECTION, NORMOCEPHALIC - Eye Exam Eye Exam: Normal appearance Pupil Exam: NORMAL ACCOMODATION - ENT Exam ENT Exam: Mucous Membranes Moist, Normal Exam - Respiratory Exam Respiratory Exam: Decreased Breath Sounds, NORMAL BREATHING PATTERN - Cardiovascular Exam Cardiovascular Exam: +S1, +S2 Additional comments: PPM- V pacing at 60's - GI/Abdominal Exam GI & Abdominal Exam: Distended, Soft Additional comments: with VIN drain, dressing intact complaining of surgical pain - Extremities Exam Extremities Exam: Full ROM, Normal Capillary Refill - Neurological Exam Neurological Exam: Alert, Awake, Oriented x3 - Psychiatric Exam Psychiatric exam: Normal Affect, Normal Mood - Skin Skin Exam: Dry, Normal Color, Warm Assessment and Plan - Assessment and Plan (Free Text) Assessment: A 77 year old male who came in to the ER due to mid lower abdominal pain. 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 Admitted for acute cholecystitis. Consult was called for cardiac clearance for possible cholecystectomy. Given multiple co-morbidities, patient is moderate to high risk for surgery but no absolute contraindication. No evidence of heart failure or myocardial ischemia. Chest X ray done today-unre markable. Status post open cholecystectomy POD #1. Complaining of severe surgical pain. PRN Dilaudid given by RN. Cardiac status stable. Will discontinue telemetry. Plan: Post open cholecystectomy POD#1 Complaining of severe surgical pain. PRN Dilaudid given by RN. Cardiac status stable Will discontinue telemetry Heart rate controlled Blood pressure controlled On Lipitor 40 mg daily, Lopressor 25 mg BID Renal function improving Continue IV hydration Continue current medications Continue current treatment Continue IV antibiotics as ordered Will follow up Plan and treatment discussed with Dr. Mora
--- NOTE | 2018-10-18 09:16 | CP.PCM.PN ---
Subjective - Date & Time of Evaluation Date of Evaluation: 10/18/18 Time of Evaluation: 06:45 - Subjective Subjective: Surgery Progress note. Dr. Infante Pt seen and examined at bedside. No acute events overnight. Patient c/o abdominal pain this morning. Denies any N/V/D. No F/C. No CP/SOB. Objective - Vital Signs/Intake and Output Vital Signs (last 24 hours): Temp Pulse Resp BP Pulse Ox 98.3 F 60 16 170/66 H 97 10/17/18 18:25 10/18/18 06:37 10/17/18 20:10 10/18/18 06:37 10/17/18 20:10 Intake and Output: 10/18/18 10/18/18 06:59 18:59 Intake Total 0 1200 Output Total 200 Balance -200 1200 - Medications Medications: Current Medications Acetaminophen (Tylenol 325mg Tab) 650 mg PO Q6H PRN PRN Reason: Fever >100.4 F Atorvastatin Calcium (Lipitor) 40 mg PO DIN [facility] Last Admin: 10/16/18 17:59 Dose: Not Given Cholecalciferol (Vitamin D) 1,000 intlu PO DAILY [facility] Last Admin: 10/17/18 09:51 Dose: 1,000 intlu Docusate Sodium (Colace) 100 mg PO DAILY [facility] Last Admin: 10/17/18 09:52 Dose: 100 mg Heparin Sodium (Porcine) (Heparin) 5,000 units SC Q8 [facility]; Protocol Last Admin: 10/18/18 08:07 Dose: 5,000 units Hydromorphone HCl (Dilaudid) 1 mg IVP Q4H PRN PRN Reason: Pain, severe (8-10) Ceftriaxone Sodium (Rocephin 1 Gram Ivpb) 1 gm in 100 mls @ 100 mls/hr IVPB DAILY [facility]; Protocol Last Admin: 10/17/18 09:52 Dose: 100 mls/hr Metronidazole (Flagyl) 500 mg in 100 mls @ 100 mls/hr IVPB Q8 [facility]; Protocol Last Admin: 10/18/18 06:09 Dose: 100 mls/hr Lactated Ringer's (Lactated Ringer's) 1,000 mls @ 100 mls/hr IV .Q10H [facility] Metoprolol Tartrate (Lopressor) 25 mg PO BID [facility] Last Admin: 10/18/18 06:37 Dose: 25 mg Ondansetron HCl (Zofran Inj) 4 mg IVP Q4H PRN PRN Reason: Nausea/Vomiting Oxycodone/Acetaminophen (Percocet 5/325 Mg Tab) 1 tab PO Q4H PRN PRN Reason: Pain, moderate (4-7) Stop: 10/20/18 19:03 - Labs Labs: 10/17/18 21:40 10/18/18 06:20 PT 13.5 SECONDS (9.4-12.5) H 10/16/18 10:25 INR 1.19 10/16/18 10:25 APTT 31.5 Seconds (26.9-38.3) 10/16/18 10:25 - Constitutional Appears: Non-toxic, No Acute Distress - Head Exam Head Exam: ATRAUMATIC, NORMAL INSPECTION, NORMOCEPHALIC - Eye Exam Eye Exam: EOMI, Normal appearance. absent: Scleral icterus - ENT Exam ENT Exam: Mucous Membranes Moist - Respiratory Exam Respiratory Exam: NORMAL BREATHING PATTERN. absent: Accessory Muscle Use, Respiratory Distress - Cardiovascular Exam Cardiovascular Exam: absent: JVD - GI/Abdominal Exam GI & Abdominal Exam: Soft. absent: Distended, Firm, Guarding, Rebound Additional comments: Incision clean, dry and intact. Mild zaira-incisional tenderness noted. Thien drain in place with some bile tinged output noted. - Extremities Exam Extremities Exam: Normal Inspection. absent: Calf Tenderness - Neurological Exam Neurological Exam: Alert, Awake, Oriented x3 - Skin Skin Exam: Dry, Intact, Warm Assessment and Plan - Assessment and Plan (Free Text) Assessment: 78yo M s/p Laparoscopic converted to open cholecystectomy. POD 1 Plan: - Advance diet as tolerated - Pain management - PT eval and treat. OOBTC. - Strict Is & Os - f/u Cardiology recs Further recs as per Dr. Naresh Arizmendi PGY2 surgery
[2018-10-18] MEDS: HYDROmorphone 1 mg/ml ISec IVP PRN ×3 (10:59→19:50)
[2018-10-18] MEDS: Lactated Ringer's 1,000 ML IV SCH (11:01)
[2018-10-18] MEDS: cefTRIAXone 1 gm 1 GM/100 ML BAG IVPB SCH (11:02)
[2018-10-18] MEDS: Cholecalciferol 1,000 INTLU TAB PO SCH (11:02)
[2018-10-18 17:30] LABS: BASO # 0.02 K/mm3 (0.0-2.0); BASO % 0.2 % (0.0-3.0); EOS # 0.1 (0.0-0.7); EOS % 0.8 % (1.5-5.0); LYMPH # 2.3 (1.2-3.4); LYMPH % 22.7 % (22.0-35.0); MEAN CELL VOLUME 92.3 fl (80.0-105.0); MEAN CORPUSCULAR HEMOGLOBIN 30.5 pg (25.0-35.0); MEAN CORPUSCULAR HGB CONC 33.1 g/dl (31.0-37.0); MEAN PLATELET VOLUME 10.7 fl (7.0-11.0); MONO # 0.9 (0.1-0.6); RBC 4.26 10^6/uL (3.5-6.1); RED CELL DISTRIBUTION WIDTH 13.2 % (11.5-14.5)
[2018-10-19] MEDS: Lactated Ringer's 1,000 ML IV SCH ×2 (00:25→17:11)
[2018-10-19] MEDS: HYDROmorphone 1 mg/ml ISec IVP PRN ×3 (04:29→13:30)
[2018-10-19] MEDS: metroNIDAZOLE IV 500 mg/100 ml 500 MG/100 ML BAG IVPB SCH ×3 (06:10→21:18)
--- NOTE | 2018-10-19 07:18 | CP.PCM.PN ---
Subjective - Date & Time of Evaluation Date of Evaluation: 10/19/18 Time of Evaluation: 06:30 - Subjective Subjective: General Surgery Progress note for Dr. Infante Patient seen and examined this am at bedside. Patient endorses pain at the incision site but no other abdominal apin. Patient otherwise denies MANUEL< SOB CP, n/v, f/c, diarrhea. Jannette drain with 20 cc bilious drainage overnight Objective - Vital Signs/Intake and Output Vital Signs (last 24 hours): Temp Pulse Resp BP Pulse Ox 98.5 F 61 18 134/61 96 10/18/18 16:20 10/18/18 16:20 10/18/18 16:20 10/18/18 17:42 10/18/18 16:20 Intake and Output: 10/19/18 10/19/18 06:59 18:59 Intake Total 540 Output Total 60 Balance 480 - Medications Medications: Current Medications Acetaminophen (Tylenol 325mg Tab) 650 mg PO Q6H PRN PRN Reason: Fever >100.4 F Atorvastatin Calcium (Lipitor) 40 mg PO DIN [facility] Last Admin: 10/18/18 18:18 Dose: 40 mg Cholecalciferol (Vitamin D) 1,000 intlu PO DAILY [facility] Last Admin: 10/18/18 11:02 Dose: 1,000 intlu Docusate Sodium (Colace) 100 mg PO DAILY [facility] Last Admin: 10/18/18 11:02 Dose: 100 mg Heparin Sodium (Porcine) (Heparin) 5,000 units SC Q8 [facility]; Protocol Last Admin: 10/19/18 06:10 Dose: 5,000 units Hydromorphone HCl (Dilaudid) 1 mg IVP Q4H PRN PRN Reason: Pain, severe (8-10) Last Admin: 10/19/18 04:29 Dose: 1 mg Ceftriaxone Sodium (Rocephin 1 Gram Ivpb) 1 gm in 100 mls @ 100 mls/hr IVPB DAILY [facility]; Protocol Last Admin: 10/18/18 11:02 Dose: 100 mls/hr Metronidazole (Flagyl) 500 mg in 100 mls @ 100 mls/hr IVPB Q8 [facility]; Protocol Last Admin: 10/19/18 06:10 Dose: 100 mls/hr Lactated Ringer's (Lactated Ringer's) 1,000 mls @ 100 mls/hr IV .Q10H [facility] Last Admin: 10/19/18 00:25 Dose: 100 mls/hr Metoprolol Tartrate (Lopressor) 25 mg PO BID [facility] Last Admin: 10/18/18 17:42 Dose: 25 mg Ondansetron HCl (Zofran Inj) 4 mg IVP Q4H PRN PRN Reason: Nausea/Vomiting Oxycodone/Acetaminophen (Percocet 5/325 Mg Tab) 1 tab PO Q4H PRN PRN Reason: Pain, moderate (4-7) Stop: 10/20/18 19:03 - Labs Labs: 10/18/18 17:27 10/18/18 06:20 PT 13.5 SECONDS (9.4-12.5) H 10/16/18 10:25 INR 1.19 10/16/18 10:25 APTT 31.5 Seconds (26.9-38.3) 10/16/18 10:25 - Constitutional Appears: Well, Non-toxic, No Acute Distress - Head Exam Head Exam: ATRAUMATIC - Eye Exam Eye Exam: EOMI - ENT Exam ENT Exam: Mucous Membranes Moist - Respiratory Exam Respiratory Exam: NORMAL BREATHING PATTERN - Cardiovascular Exam Cardiovascular Exam: REGULAR RHYTHM - GI/Abdominal Exam GI & Abdominal Exam: Guarding (RUQ over incision site), Soft, Tenderness (RUQ over incision) - Extremities Exam Extremities Exam: absent: Calf Tenderness - Neurological Exam Neurological Exam: Alert, Awake, Oriented x3 - Psychiatric Exam Psychiatric exam: Normal Affect, Normal Mood - Skin Skin Exam: Dry, Intact, Normal Color, Warm Assessment and Plan - Assessment and Plan (Free Text) Assessment: 78 yr old male with acute/chronic cholecystitis s/p Lap converted to open cholecystectomy, POD 2 Plan: pain control ADAT encourage OOBTC and IS use SCD strict Is & Os consider HIDA d/t bile in jannette drain will discuss with Dr. Naresh Bai, PGY 1
--- NOTE | 2018-10-19 07:23 | CP.PCM.PN ---
Subjective - Date & Time of Evaluation Date of Evaluation: 10/19/18 Time of Evaluation: 06:45 - Subjective Subjective: Awake, alert, no distress. lying in bed, feels better today although some post op pain Reason for consultation and follow up: Cardiac evaluation and pre-op evaluation and risk stratification for possible cholecystectomy, history of coronary artery disease with stents, PPM , post cholecystectomy POD#2 Seen and examined by me and Dr. Kwong Objective - Vital Signs/Intake and Output Vital Signs (last 24 hours): Temp Pulse Resp BP Pulse Ox 98.5 F 61 18 134/61 96 10/18/18 16:20 10/18/18 16:20 10/18/18 16:20 10/18/18 17:42 10/18/18 16:20 Intake and Output: 10/19/18 10/19/18 06:59 18:59 Intake Total 540 Output Total 60 Balance 480 - Medications Medications: Current Medications Acetaminophen (Tylenol 325mg Tab) 650 mg PO Q6H PRN PRN Reason: Fever >100.4 F Atorvastatin Calcium (Lipitor) 40 mg PO DIN [facility] Last Admin: 10/18/18 18:18 Dose: 40 mg Cholecalciferol (Vitamin D) 1,000 intlu PO DAILY [facility] Last Admin: 10/18/18 11:02 Dose: 1,000 intlu Docusate Sodium (Colace) 100 mg PO DAILY [facility] Last Admin: 10/18/18 11:02 Dose: 100 mg Heparin Sodium (Porcine) (Heparin) 5,000 units SC Q8 [facility]; Protocol Last Admin: 10/19/18 06:10 Dose: 5,000 units Hydromorphone HCl (Dilaudid) 1 mg IVP Q4H PRN PRN Reason: Pain, severe (8-10) Last Admin: 10/19/18 04:29 Dose: 1 mg Ceftriaxone Sodium (Rocephin 1 Gram Ivpb) 1 gm in 100 mls @ 100 mls/hr IVPB DAILY [facility]; Protocol Last Admin: 10/18/18 11:02 Dose: 100 mls/hr Metronidazole (Flagyl) 500 mg in 100 mls @ 100 mls/hr IVPB Q8 [facility]; Protocol Last Admin: 10/19/18 06:10 Dose: 100 mls/hr Lactated Ringer's (Lactated Ringer's) 1,000 mls @ 100 mls/hr IV .Q10H [facility] Last Admin: 10/19/18 00:25 Dose: 100 mls/hr Metoprolol Tartrate (Lopressor) 25 mg PO BID [facility] Last Admin: 10/18/18 17:42 Dose: 25 mg Ondansetron HCl (Zofran Inj) 4 mg IVP Q4H PRN PRN Reason: Nausea/Vomiting Oxycodone/Acetaminophen (Percocet 5/325 Mg Tab) 1 tab PO Q4H PRN PRN Reason: Pain, moderate (4-7) Stop: 10/20/18 19:03 - Labs Labs: 10/18/18 17:27 10/18/18 06:20 PT 13.5 SECONDS (9.4-12.5) H 10/16/18 10:25 INR 1.19 10/16/18 10:25 APTT 31.5 Seconds (26.9-38.3) 10/16/18 10:25 - Constitutional Appears: Non-toxic, No Acute Distress - Head Exam Head Exam: NORMAL INSPECTION, NORMOCEPHALIC - Eye Exam Eye Exam: Normal appearance Pupil Exam: NORMAL ACCOMODATION - ENT Exam ENT Exam: Mucous Membranes Moist, Normal Exam - Respiratory Exam Respiratory Exam: Decreased Breath Sounds, Clear to Ausculation Bilateral, NORMAL BREATHING PATTERN - Cardiovascular Exam Cardiovascular Exam: +S1, +S2 Additional comments: PPM - GI/Abdominal Exam GI & Abdominal Exam: Soft, Normal Bowel Sounds Additional comments: VIN drain abdominal dressing intact - Extremities Exam Extremities Exam: Full ROM, Normal Capillary Refill - Neurological Exam Neurological Exam: Alert, Awake, Oriented x3 - Psychiatric Exam Psychiatric exam: Normal Affect, Normal Mood - Skin Skin Exam: Dry, Normal Color, Warm Assessment and Plan - Assessment and Plan (Free Text) Assessment: A 77 year old male who came in to the ER due to mid lower abdominal pain. 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 Admitted for acute cholecystitis. Consult was called for cardiac clearance for possible cholecystectomy. Given multiple co-morbidities, patient is moderate to high risk for surgery but no absolute contraindication. No evidence of heart failure or myocardial ischemia. Chest X ray done today-unremarkable. Status post open cholecystectomy POD #2. Cardiac status stable. Feels better today. Plan: Post open cholecystectomy POD#2 With tolerable surgical pain PRN pain medicicne Cardiac status stable Heart rate controlled Blood pressure controlled On Lipitor 40 mg daily, Lopressor 25 mg BID Continue IV hydration Continue current medications Continue current treatment Continue IV antibiotics as ordered Physical therapy, OOB to chair Will follow up Plan and treatment discussed with Dr. Kwong
[2018-10-19 07:24] LABS: BASO # 0.02 K/mm3 (0.0-2.0); BASO % 0.3 % (0.0-3.0); EOS # 0.2 (0.0-0.7); EOS % 2.8 % (1.5-5.0); HEMOGLOBIN 11.6 g/dL (14.0-18.0); LYMPH % 25.9 % (22.0-35.0); MEAN CELL VOLUME 91.7 fl (80.0-105.0); MEAN CORPUSCULAR HEMOGLOBIN 30.1 pg (25.0-35.0); MEAN CORPUSCULAR HGB CONC 32.8 g/dl (31.0-37.0); MEAN PLATELET VOLUME 10.8 fl (7.0-11.0); MONO # 0.7 (0.1-0.6); MONO % 9.3 % (1.0-6.0); RBC 3.86 10^6/uL (3.5-6.1); RED CELL DISTRIBUTION WIDTH 13.2 % (11.5-14.5); WHITE BLOOD COUNT 7.5 10^3/uL (4.5-11.0)
[2018-10-19 07:55] LABS: ALBUMIN 2.8 g/dL (3.0-4.8)
[2018-10-19] MEDS: cefTRIAXone 1 gm 1 GM/100 ML BAG IVPB SCH (09:33)
[2018-10-19] MEDS: Cholecalciferol 1,000 INTLU TAB PO SCH (09:33)
[2018-10-19] MEDS ORDERED: Simethicone 80 mg Chewtab PO PRN (10:56)
--- NOTE | 2018-10-19 11:26 | CP.PCM.PN ---
<Dilip Peter - Last Filed: 10/19/18 11:27> Subjective - Date & Time of Evaluation Date of Evaluation: 10/19/18 Time of Evaluation: 08:00 - Subjective Subjective: Dilip Peter DO, PGY-1 Hospitalist Progress Note for Dr. Zamora Patient was seen and examined at bedside this AM. He reports continued post-op p ain mainly from having excessive flatus. He states he has not had BM yet. Objective - Vital Signs/Intake and Output Vital Signs (last 24 hours): Temp Pulse Resp BP Pulse Ox 98.5 F 64 18 130/63 96 10/18/18 16:20 10/19/18 09:37 10/18/18 16:20 10/19/18 09:37 10/18/18 16:20 Intake and Output: 10/19/18 10/19/18 06:59 18:59 Intake Total 540 Output Total 60 Balance 480 - Medications Medications: Current Medications Acetaminophen (Tylenol 325mg Tab) 650 mg PO Q6H PRN PRN Reason: Fever >100.4 F Aspirin (Aspirin Chewable) 81 mg PO DAILY [facility] Atorvastatin Calcium (Lipitor) 40 mg PO DIN [facility] Last Admin: 10/18/18 18:18 Dose: 40 mg Cholecalciferol (Vitamin D) 1,000 intlu PO DAILY [facility] Last Admin: 10/19/18 09:33 Dose: 1,000 intlu Docusate Sodium (Colace) 100 mg PO DAILY [facility] Last Admin: 10/19/18 09:33 Dose: 100 mg Enoxaparin Sodium (Lovenox) 40 mg SC DAILY [facility]; Protocol Hydromorphone HCl (Dilaudid) 1 mg IVP Q4H PRN PRN Reason: Pain, severe (8-10) Last Admin: 10/19/18 09:33 Dose: 1 mg Ceftriaxone Sodium (Rocephin 1 Gram Ivpb) 1 gm in 100 mls @ 100 mls/hr IVPB DAILY [facility]; Protocol Last Admin: 10/19/18 09:33 Dose: 100 mls/hr Metronidazole (Flagyl) 500 mg in 100 mls @ 100 mls/hr IVPB Q8 [facility]; Protocol Last Admin: 10/19/18 06:10 Dose: 100 mls/hr Lactated Ringer's (Lactated Ringer's) 1,000 mls @ 100 mls/hr IV .Q10H [facility] Last Admin: 10/19/18 00:25 Dose: 100 mls/hr Metoprolol Tartrate (Lopressor) 25 mg PO BID [facility] Last Admin: 10/19/18 09:37 Dose: 25 mg Ondansetron HCl (Zofran Inj) 4 mg IVP Q4H PRN PRN Reason: Nausea/Vomiting Oxycodone/Acetaminophen (Percocet 5/325 Mg Tab) 1 tab PO Q4H PRN PRN Reason: Pain, moderate (4-7) Stop: 10/20/18 19:03 Simethicone (Mylicon Chew Tab) 80 mg PO [facility] PRN PRN Reason: GI distress - Labs Labs: 10/19/18 06:45 10/19/18 06:45 PT 13.5 SECONDS (9.4-12.5) H 10/16/18 10:25 INR 1.19 10/16/18 10:25 APTT 31.5 Seconds (26.9-38.3) 10/16/18 10:25 - Constitutional Appears: Non-toxic, No Acute Distress - Head Exam Head Exam: ATRAUMATIC, NORMOCEPHALIC - Eye Exam Eye Exam: EOMI, PERRL - ENT Exam ENT Exam: Mucous Membranes Moist - Neck Exam Neck Exam: Full ROM, Normal Inspection - Respiratory Exam Respiratory Exam: Clear to Ausculation Bilateral, NORMAL BREATHING PATTERN. absent: Rales, Rhonchi, Wheezes - Cardiovascular Exam Cardiovascular Exam: REGULAR RHYTHM, RRR, +S1, +S2. absent: Gallop, Rubs, Murmur - GI/Abdominal Exam GI & Abdominal Exam: Soft, Tenderness (greatest over RUQ), Normal Bowel Sounds Additional comments: RUQ incision and laparotomy incisions clean, dry, intact - Extremities Exam Extremities Exam: Full ROM, Normal Inspection. 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 He is now s/p lap converted to open cholecystectomy POD 2. Plan: Cholecystitis S/p lap converted to open cholecystectomy POD 2 Has remained afebrile without leukocytosis Tbili continuing to trend down Continue post-op pain management Encourage patient to get OOB to chair, ambulate as much as possible, IS use Has not tolerated regular diet well, continue with liquids Zofran PRN Continue LR at 100 cc/hr Continue flagyl/rocephin DENISE Renal function parameters improving Likely 2/2 pre-renal azotemia from poor PO intake Continue IVF resuscitation Continue to monitor Post-op constipation Continue colace Add miralax PRN HTN Home meds resumed HLD Continue home lipitor DVT/GI PPX: Lovenox/pepcid Full Code Liquid diet, advance as tolerated Monitor on med/surg Patient seen, examined with, and plan discussed with my attending Dr. Noah Peter, MarjorieO. IM Resident PGY-1 Pager: [phone] <Dashawn Zamora - Last Filed: 10/19/18 15:32> Objective - Vital Signs/Intake and Output Vital Signs (last 24 hours): Temp Pulse Resp BP Pulse Ox 99.8 F H 61 18 112/62 99 10/19/18 14:00 10/19/18 14:00 10/19/18 14:00 10/19/18 14:00 10/19/18 14:00 Intake and Output: 10/19/18 10/19/18 06:59 18:59 Intake Total 540 Output Total 60 Balance 480 - Medications Medications: Current Medications Acetaminophen (Tylenol 325mg Tab) 650 mg PO Q6H PRN PRN Reason: Fever >100.4 F Aspirin (Aspirin Chewable) 81 mg PO DAILY [facility] Last Admin: 10/19/18 13:19 Dose: 81 mg Atorvastatin Calcium (Lipitor) 40 mg PO DIN [facility] Last Admin: 10/18/18 18:18 Dose: 40 mg Cholecalciferol (Vitamin D) 1,000 intlu PO DAILY [facility] Last Admin: 10/19/18 09:33 Dose: 1,000 intlu Docusate Sodium (Colace) 100 mg PO DAILY [facility] Last Admin: 10/19/18 09:33 Dose: 100 mg Enoxaparin Sodium (Lovenox) 40 mg SC DAILY [facility]; Protocol Famotidine (Pepcid) 40 mg PO HS [facility] Hydromorphone HCl (Dilaudid) 1 mg IVP Q4H PRN PRN Reason: Pain, severe (8-10) Last Admin: 10/19/18 13:30 Dose: 1 mg Ceftriaxone Sodium (Rocephin 1 Gram Ivpb) 1 gm in 100 mls @ 100 mls/hr IVPB DAILY [facility]; Protocol Last Admin: 10/19/18 09:33 Dose: 100 mls/hr Metronidazole (Flagyl) 500 mg in 100 mls @ 100 mls/hr IVPB Q8 [facility]; Protocol Last Admin: 10/19/18 13:19 Dose: 100 mls/hr Lactated Ringer's (Lactated Ringer's) 1,000 mls @ 100 mls/hr IV .Q10H [facility] Last Admin: 10/19/18 00:25 Dose: 100 mls/hr Metoprolol Tartrate (Lopressor) 25 mg PO BID [facility] Last Admin: 10/19/18 09:37 Dose: 25 mg Ondansetron HCl (Zofran Inj) 4 mg IVP Q4H PRN PRN Reason: Nausea/Vomiting Oxycodone/Acetaminophen (Percocet 5/325 Mg Tab) 1 tab PO Q4H PRN PRN Reason: Pain, moderate (4-7) Stop: 10/20/18 19:03 Simethicone (Mylicon Chew Tab) 80 mg PO P[facility]S PRN PRN Reason: GI distress - Labs Labs: 10/19/18 06:45 10/19/18 06:45 PT 13.5 SECONDS (9.4-12.5) H 10/16/18 10:25 INR 1.19 10/16/18 10:25 APTT 31.5 Seconds (26.9-38.3) 10/16/18 10:25 Attending/Attestation - Attestation I have personally seen and examined this patient.: Yes I have fully participated in the care of the patient.: Yes I have reviewed all pertinent clinical information, including history, physical exam and plan: Yes Notes (Text): 10/19/18 15:22 Attending note; Patient seen and examined with resident. Patient is alert and awake. lying in bed. Complaining of abdominal pain. Complaining of abdominal distention. NO BM yet. Poor p.o. intake. Status post open cholecystectomy. Patient has VIN drain in place. bilious discharge in the drain. denies fever, chills. 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 1. Cholecystitis; status post open cholecystectomy. Postop day #2. Drain in place. Still with abdominal pain. Continue IV Dilaudid. Continue IV Rocephin and Flagyl. Continue clear liquid diet as tolerated. advance to regular diet today. Out of bed to chair as tolerated. follow up with surgery closely. 2. coronary artery disease and stent placement. Stable cardiac status. Cardiology evaluation appreciated . started on aspirin. 3. Hypertension; continue metoprolol. 4. Status post pacemaker placement. 5. anemia: mostly due to hydration. no active bleeding noted. monitor closely. 6. ARF: resolving. baseline creatinine is 1.5. Upon discharge the patient will follow up with PMD .
[2018-10-20] MEDS: Lactated Ringer's 1,000 ML IV SCH ×2 (03:40→22:44)
[2018-10-20] MEDS: metroNIDAZOLE IV 500 mg/100 ml 500 MG/100 ML BAG IVPB SCH ×2 (05:22→13:25)
[2018-10-20 08:02] LABS: ALBUMIN 2.6 g/dL (3.0-4.8); ALT/SGPT 29 U/L (7-56); AST/SGOT 54 U/L (17-59); BLOOD UREA NITROGEN 30 mg/dL (7-21); CALCIUM 7.7 mg/dL (8.4-10.5); GFR NON-AFRICAN AMERICAN > 60
--- NOTE | 2018-10-20 08:44 | CP.PCM.PN ---
Subjective - Date & Time of Evaluation Date of Evaluation: 10/20/18 Time of Evaluation: 07:00 - Subjective Subjective: Surgery Progress note. Dr. Infante Pt seen and examined at bedside. No acute events overnight. No N/V/D. States that he feels bloated. Has been having some flatus. Denies any new complaints. Abd pain mildly improved. Drain with 30cc/24hr output of bile tinged. Objective - Vital Signs/Intake and Output Vital Signs (last 24 hours): Temp Pulse Resp BP Pulse Ox 98 F 60 20 131/55 L 94 L 10/20/18 08:00 10/20/18 08:00 10/20/18 08:00 10/20/18 08:00 10/20/18 08:00 Intake and Output: 10/20/18 10/20/18 06:59 18:59 Intake Total Output Total Balance - Medications Medications: Current Medications Acetaminophen (Tylenol 325mg Tab) 650 mg PO Q6H PRN PRN Reason: Fever >100.4 F Aspirin (Aspirin Chewable) 81 mg PO DAILY [facility] Last Admin: 10/19/18 13:19 Dose: 81 mg Atorvastatin Calcium (Lipitor) 40 mg PO DIN [facility] Last Admin: 10/19/18 17:11 Dose: 40 mg Cholecalciferol (Vitamin D) 1,000 intlu PO DAILY [facility] Last Admin: 10/19/18 09:33 Dose: 1,000 intlu Docusate Sodium (Colace) 100 mg PO DAILY [facility] Last Admin: 10/19/18 09:33 Dose: 100 mg Enoxaparin Sodium (Lovenox) 40 mg SC DAILY [facility]; Protocol Famotidine (Pepcid) 40 mg PO HS [facility] Last Admin: 10/19/18 21:18 Dose: 40 mg Hydromorphone HCl (Dilaudid) 1 mg IVP Q4H PRN PRN Reason: Pain, severe (8-10) Last Admin: 10/19/18 13:30 Dose: 1 mg Ceftriaxone Sodium (Rocephin 1 Gram Ivpb) 1 gm in 100 mls @ 100 mls/hr IVPB DAILY [facility]; Protocol Last Admin: 10/19/18 09:33 Dose: 100 mls/hr Metronidazole (Flagyl) 500 mg in 100 mls @ 100 mls/hr IVPB Q8 [facility]; Protocol Last Admin: 10/20/18 05:22 Dose: 100 mls/hr Lactated Ringer's (Lactated Ringer's) 1,000 mls @ 75 mls/hr IV .[id number] [facility] Last Admin: 10/20/18 03:40 Dose: 75 mls/hr Metoprolol Tartrate (Lopressor) 25 mg PO BID [facility] Last Admin: 10/19/18 17:14 Dose: 25 mg Ondansetron HCl (Zofran Inj) 4 mg IVP Q4H PRN PRN Reason: Nausea/Vomiting Oxycodone/Acetaminophen (Percocet 5/325 Mg Tab) 1 tab PO Q4H PRN PRN Reason: Pain, moderate (4-7) Stop: 10/20/18 19:03 Simethicone (Mylicon Chew Tab) 80 mg PO [facility] PRN PRN Reason: GI distress Last Admin: 10/19/18 17:11 Dose: 80 mg - Labs Labs: 10/19/18 06:45 10/20/18 07:00 PT 13.5 SECONDS (9.4-12.5) H 10/16/18 10:25 INR 1.19 10/16/18 10:25 APTT 31.5 Seconds (26.9-38.3) 10/16/18 10:25 - Constitutional Appears: Non-toxic, No Acute Distress - Head Exam Head Exam: ATRAUMATIC, NORMAL INSPECTION, NORMOCEPHALIC - Eye Exam Eye Exam: EOMI, Normal appearance. absent: Scleral icterus - ENT Exam ENT Exam: Mucous Membranes Moist - Respiratory Exam Respiratory Exam: NORMAL BREATHING PATTERN. absent: Accessory Muscle Use, Respiratory Distress - Cardiovascular Exam Cardiovascular Exam: absent: JVD - GI/Abdominal Exam GI & Abdominal Exam: Soft. absent: Distended, Guarding, Rigid Additional comments: Mild zaira-incisional tenderness. Dressing, clean, dry and intact. Drain with 30cc/24hr bile tinged output - Extremities Exam Extremities Exam: Normal Inspection. absent: Calf Tenderness - Back Exam Back Exam: NORMAL INSPECTION - Neurological Exam Neurological Exam: Alert, Awake, Oriented x3 - Psychiatric Exam Psychiatric exam: Normal Affect, Normal Mood - Skin Skin Exam: Dry, Intact, Normal Color, Warm Assessment and Plan - Assessment and Plan (Free Text) Assessment: 78yo M w acute on chronic cholecystitis s/p lap converted to open cholecystectomy. POD 3 Plan: - Will obtain HIDA today to r/o biliary leak - Pain mgmt - NPO until after HIDA - f/u AM labs - Strict Is & Os - Encourage OOBTC, IS use and ambulation Further recs as per Dr. Naresh Arizmendi PGY2 surgery
--- NOTE | 2018-10-20 10:41 | CP.PCM.PN ---
Subjective - Date & Time of Evaluation Date of Evaluation: 10/20/18 Time of Evaluation: 07:10 - Subjective Subjective: Awake, alert, no distress. lying in bed, feels better today, some gas pains Reason for consultation and follow up: Post op follow up , post cholecystectomy POD#3, history of coronary artery disease with stents, PPM , Seen and examined by me and Dr. Kwong Objective - Vital Signs/Intake and Output Vital Signs (last 24 hours): Temp Pulse Resp BP Pulse Ox 98 F 60 20 131/55 L 94 L 10/20/18 08:00 10/20/18 08:00 10/20/18 08:00 10/20/18 08:00 10/20/18 08:00 Intake and Output: 10/20/18 10/20/18 06:59 18:59 Intake Total Output Total Balance - Medications Medications: Current Medications Acetaminophen (Tylenol 325mg Tab) 650 mg PO Q6H PRN PRN Reason: Fever >100.4 F Aspirin (Aspirin Chewable) 81 mg PO DAILY [facility] Last Admin: 10/19/18 13:19 Dose: 81 mg Atorvastatin Calcium (Lipitor) 40 mg PO DIN [facility] Last Admin: 10/19/18 17:11 Dose: 40 mg Cholecalciferol (Vitamin D) 1,000 intlu PO DAILY [facility] Last Admin: 10/19/18 09:33 Dose: 1,000 intlu Docusate Sodium (Colace) 100 mg PO DAILY [facility] Last Admin: 10/19/18 09:33 Dose: 100 mg Enoxaparin Sodium (Lovenox) 40 mg SC DAILY [facility]; Protocol Famotidine (Pepcid) 40 mg PO HS [facility] Last Admin: 10/19/18 21:18 Dose: 40 mg Hydromorphone HCl (Dilaudid) 1 mg IVP Q4H PRN PRN Reason: Pain, severe (8-10) Last Admin: 10/19/18 13:30 Dose: 1 mg Ceftriaxone Sodium (Rocephin 1 Gram Ivpb) 1 gm in 100 mls @ 100 mls/hr IVPB DAILY [facility]; Protocol Last Admin: 10/19/18 09:33 Dose: 100 mls/hr Metronidazole (Flagyl) 500 mg in 100 mls @ 100 mls/hr IVPB Q8 [facility]; Protocol Last Admin: 10/20/18 05:22 Dose: 100 mls/hr Lactated Ringer's (Lactated Ringer's) 1,000 mls @ 75 mls/hr IV .[id number] [facility] Last Admin: 10/20/18 03:40 Dose: 75 mls/hr Metoprolol Tartrate (Lopressor) 25 mg PO BID [facility] Last Admin: 10/19/18 17:14 Dose: 25 mg Ondansetron HCl (Zofran Inj) 4 mg IVP Q4H PRN PRN Reason: Nausea/Vomiting Oxycodone/Acetaminophen (Percocet 5/325 Mg Tab) 1 tab PO Q4H PRN PRN Reason: Pain, moderate (4-7) Stop: 10/20/18 19:03 Simethicone (Mylicon Chew Tab) 80 mg PO [facility] PRN PRN Reason: GI distress Last Admin: 10/19/18 17:11 Dose: 80 mg - Labs Labs: 10/19/18 06:45 10/20/18 07:00 PT 13.5 SECONDS (9.4-12.5) H 10/16/18 10:25 INR 1.19 10/16/18 10:25 APTT 31.5 Seconds (26.9-38.3) 10/16/18 10:25 - Constitutional Appears: Non-toxic, No Acute Distress - Head Exam Head Exam: NORMAL INSPECTION, NORMOCEPHALIC - Eye Exam Eye Exam: Normal appearance Pupil Exam: NORMAL ACCOMODATION - Respiratory Exam Respiratory Exam: Decreased Breath Sounds, Clear to Ausculation Bilateral, NORMAL BREATHING PATTERN - Cardiovascular Exam Cardiovascular Exam: +S1, +S2 - GI/Abdominal Exam GI & Abdominal Exam: Distended, Soft Additional comments: VIN drain, abdominal dressing intact, positive flatus, burping - Extremities Exam Extremities Exam: Full ROM, Normal Capillary Refill - Neurological Exam Neurological Exam: Alert, Awake, Oriented x3 - Psychiatric Exam Psychiatric exam: Normal Affect, Normal Mood - Skin Skin Exam: Dry, Normal Color, Warm Assessment and Plan - Assessment and Plan (Free Text) Assessment: A 77 year old male who came in to the ER due to mid lower abdominal pain. 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 Admitted for acute cholecystitis. Consult was called for cardiac clearance for possible cholecystectomy. Given multiple co-morbidities, patient is moderate to high risk for surgery but no absolute contraindication. No evidence of heart failure or myocardial ischemia. Chest X ray done today-unremarkable. Status post open cholecystectomy POD #3 Cardiac status stable. Some abdominal discomfort, able to pass flatus and burping. For HIDA scan today. Plan: For HIDA scan today Post open cholecystectomy POD#3 Some abdominal discomfort, able to pass flatus and burping PRN pain medicine Cardiac status stable Heart rate controlled Blood pressure controlled On Lipitor 40 mg daily, Lopressor 25 mg BID Continue IV hydration Continue current medications Continue current treatment Continue IV antibiotics as ordered Physical therapy, OOB to chair Will follow up Plan and treatment discussed with Dr. Kwong
[2018-10-20] MEDS: cefTRIAXone 1 gm 1 GM/100 ML BAG IVPB SCH (11:34)
[2018-10-20] MEDS: Enoxaparin 40 mg Syringe SC SCH (11:35)
[2018-10-20] MEDS: Cholecalciferol 1,000 INTLU TAB PO SCH (11:39)
[2018-10-20] MEDS ORDERED: Potassium & Sodium Phosphate PO ONE (13:02)
--- NOTE | 2018-10-20 13:05 | CP.PCM.PN ---
<Dilip Peter - Last Filed: 10/20/18 12:58> Subjective - Date & Time of Evaluation Date of Evaluation: 10/20/18 Time of Evaluation: 07:00 - Subjective Subjective: Dilip Peter DO, PGY-1 Hospitalist Progress Note for Dr. Zamora Patient was seen and examined at bedside this AM. He reports his post-op pain is unchanged from yesterday and the gas pains seem to be getting worse. He continues to have bilious drainage from VIN. Objective - Vital Signs/Intake and Output Vital Signs (last 24 hours): Temp Pulse Resp BP Pulse Ox 98 F 60 20 130/60 94 L 10/20/18 08:00 10/20/18 08:00 10/20/18 08:00 10/20/18 11:40 10/20/18 11:26 Intake and Output: 10/20/18 10/20/18 06:59 18:59 Intake Total Output Total Balance - Medications Medications: Current Medications Acetaminophen (Tylenol 325mg Tab) 650 mg PO Q6H PRN PRN Reason: Fever >100.4 F Aspirin (Aspirin Chewable) 81 mg PO DAILY [facility] Last Admin: 10/19/18 13:19 Dose: 81 mg Atorvastatin Calcium (Lipitor) 40 mg PO DIN [facility] Last Admin: 10/19/18 17:11 Dose: 40 mg Cholecalciferol (Vitamin D) 1,000 intlu PO DAILY [facility] Last Admin: 10/20/18 11:39 Dose: 1,000 intlu Docusate Sodium (Colace) 100 mg PO DAILY [facility] Last Admin: 10/20/18 11:39 Dose: Not Given Enoxaparin Sodium (Lovenox) 40 mg SC DAILY [facility]; Protocol Last Admin: 10/20/18 11:35 Dose: 40 mg Famotidine (Pepcid) 40 mg PO HS [facility] Last Admin: 10/19/18 21:18 Dose: 40 mg Ceftriaxone Sodium (Rocephin 1 Gram Ivpb) 1 gm in 100 mls @ 100 mls/hr IVPB DAILY [facility]; Protocol Last Admin: 10/20/18 11:34 Dose: 100 mls/hr Metronidazole (Flagyl) 500 mg in 100 mls @ 100 mls/hr IVPB Q8 [facility]; Protocol Last Admin: 10/20/18 05:22 Dose: 100 mls/hr Lactated Ringer's (Lactated Ringer's) 1,000 mls @ 75 mls/hr IV .[id number] [facility] Last Admin: 10/20/18 03:40 Dose: 75 mls/hr Metoprolol Tartrate (Lopressor) 25 mg PO BID [facility] Last Admin: 10/20/18 11:40 Dose: 25 mg Ondansetron HCl (Zofran Inj) 4 mg IVP Q4H PRN PRN Reason: Nausea/Vomiting Oxycodone/Acetaminophen (Percocet 5/325 Mg Tab) 1 tab PO Q4H PRN PRN Reason: Pain, moderate (4-7) Stop: 10/20/18 19:03 Simethicone (Mylicon Chew Tab) 80 mg PO HS PRN PRN Reason: GI distress Last Admin: 10/19/18 17:11 Dose: 80 mg - Labs Labs: 10/19/18 06:45 10/20/18 07:00 PT 13.5 SECONDS (9.4-12.5) H 10/16/18 10:25 INR 1.19 10/16/18 10:25 APTT 31.5 Seconds (26.9-38.3) 10/16/18 10:25 - Constitutional Appears: Non-toxic, No Acute Distress - Head Exam Head Exam: ATRAUMATIC, NORMOCEPHALIC - Eye Exam Eye Exam: EOMI, PERRL - ENT Exam ENT Exam: Mucous Membranes Moist - Neck Exam Neck Exam: Full ROM, Normal Inspection - Respiratory Exam Respiratory Exam: Clear to Ausculation Bilateral, NORMAL BREATHING PATTERN. absent: Accessory Muscle Use, Rales, Rhonchi, Wheezes, Respiratory Distress - Cardiovascular Exam Cardiovascular Exam: REGULAR RHYTHM, RRR, +S1, +S2. absent: Gallop, Rubs, Murmur - GI/Abdominal Exam GI & Abdominal Exam: Soft, Tenderness (diffuse tenderness to palpation, worst near surgical site), Hyperactive Bowel Sounds. absent: Guarding, Rebound Additional comments: RUQ incision and laparotomy incisions clean, dry, intact, VIN continues to have green, bilious drainage - Extremities Exam Extremities Exam: Full ROM, Normal Inspection. 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 He is now s/p lap converted to open cholecystectomy POD 3. Plan: Cholecystitis S/p lap converted to open cholecystectomy POD 3 Has remained afebrile without leukocytosis Since VIN is continuing to have bilious drainage, will get HIDA scan Encouraged patient again to get OOB to chair, ambulate as much as possible, IS use Zofran PRN Continue LR at 75 cc/hr Continue flagyl/rocephin DENISE Renal function parameters continue to improve Likely 2/2 pre-renal azotemia from poor PO intake Continue IVF resuscitation with LR at 75 cc/hr Continue to monitor Hypophosphatemia Replaced Recheck in AM Post-op constipation Continue colace Add miralax PRN HTN Home meds resumed HLD Continue home lipitor DVT/GI PPX: Lovenox/pepcid Full Code NPO pending HIDA scan, resume liquid diet after Monitor on med/surg Patient seen, examined with, and plan discussed with my attending Dr. Noah Peter D.O. IM Resident PGY-1 Pager: [phone] <Dashawn Zamora - Last Filed: 10/20/18 13:33> Objective - Vital Signs/Intake and Output Vital Signs (last 24 hours): Temp Pulse Resp BP Pulse Ox 98 F 60 20 130/60 94 L 10/20/18 08:00 10/20/18 08:00 10/20/18 08:00 10/20/18 11:40 10/20/18 11:26 Intake and Output: 10/20/18 10/20/18 06:59 18:59 Intake Total Output Total Balance - Medications Medications: Current Medications Acetaminophen (Tylenol 325mg Tab) 650 mg PO Q6H PRN PRN Reason: Fever >100.4 F Aspirin (Aspirin Chewable) 81 mg PO DAILY [facility] Last Admin: 10/19/18 13:19 Dose: 81 mg Atorvastatin Calcium (Lipitor) 40 mg PO DIN [facility] Last Admin: 10/19/18 17:11 Dose: 40 mg Cholecalciferol (Vitamin D) 1,000 intlu PO DAILY [facility] Last Admin: 10/20/18 11:39 Dose: 1,000 intlu Docusate Sodium (Colace) 100 mg PO DAILY [facility] Last Admin: 10/20/18 11:39 Dose: Not Given Enoxaparin Sodium (Lovenox) 40 mg SC DAILY [facility]; Protocol Last Admin: 10/20/18 11:35 Dose: 40 mg Famotidine (Pepcid) 40 mg PO HS [facility] Last Admin: 10/19/18 21:18 Dose: 40 mg Ceftriaxone Sodium (Rocephin 1 Gram Ivpb) 1 gm in 100 mls @ 100 mls/hr IVPB DAILY [facility]; Protocol Last Admin: 10/20/18 11:34 Dose: 100 mls/hr Metronidazole (Flagyl) 500 mg in 100 mls @ 100 mls/hr IVPB Q8 [facility]; Protocol Last Admin: 10/20/18 13:25 Dose: 100 mls/hr Lactated Ringer's (Lactated Ringer's) 1,000 mls @ 75 mls/hr IV .[id number] [facility] Last Admin: 10/20/18 03:40 Dose: 75 mls/hr Metoprolol Tartrate (Lopressor) 25 mg PO BID [facility] Last Admin: 10/20/18 11:40 Dose: 25 mg Ondansetron HCl (Zofran Inj) 4 mg IVP Q4H PRN PRN Reason: Nausea/Vomiting Oxycodone/Acetaminophen (Percocet 5/325 Mg Tab) 1 tab PO Q4H PRN PRN Reason: Pain, moderate (4-7) Stop: 10/20/18 19:03 Simethicone (Mylicon Chew Tab) 80 mg PO [facility] PRN PRN Reason: GI distress Last Admin: 10/19/18 17:11 Dose: 80 mg - Labs Labs: 10/19/18 06:45 10/20/18 07:00 PT 13.5 SECONDS (9.4-12.5) H 10/16/18 10:25 INR 1.19 10/16/18 10:25 APTT 31.5 Seconds (26.9-38.3) 10/16/18 10:25 Attending/Attestation - Attestation I have personally seen and examined this patient.: Yes I have fully participated in the care of the patient.: Yes I have reviewed all pertinent clinical information, including history, physical exam and plan: Yes Notes (Text): 10/20/18 13:29 Attending note; Patient seen and examined with resident. Patient is alert and awake. lying in bed. Complaining of abdominal pain. Complaining of abdominal distention. passing gas. Poor p.o. intake. Status post open cholecystectomy. Patient has VIN drain in place. serosanguinous discharge in the drain. denies fever, chills. still with significant discomfort. 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 1. Cholecystitis; status post open cholecystectomy. Postop day #3. Drain in place. Still with abdominal pain. Continue IV Dilaudid. Continue IV Rocephin and Flagyl. NPo for HIDA scan. HIDA scan ordered to rule out biliary leak. Case discussed with surgery in detail. 2. coronary artery disease and stent placement. Stable cardiac status. Cardiology evaluation appreciated . started on aspirin. 3. Hypertension; continue metoprolol. 4. Status post pacemaker placement. 5. anemia: mostly due to hydration. no active bleeding noted. monitor closely. 6. ARF: resolved. creatinine is 1.1. Follow-up HIDA scan. Follow-up with surgery for further plan. Out of bed to chair as tolerated. Upon discharge the patient will follow up with PMD .
[2018-10-21 07:50] LABS: ALB/GLOB RATIO 0.9 (1.1-1.8); ALBUMIN 2.7 g/dL (3.0-4.8); ALT/SGPT 28 U/L (7-56); AST/SGOT 46 U/L (17-59); BLOOD UREA NITROGEN 19 mg/dL (7-21); GFR NON-AFRICAN AMERICAN > 60
[2018-10-21] MEDS ORDERED: Potassium Chloride 20 mEq ER Tab PO STA (08:28)
--- NOTE | 2018-10-21 08:31 | CP.PCM.PN ---
Subjective - Date & Time of Evaluation Date of Evaluation: 10/21/18 Time of Evaluation: 08:27 - Subjective Subjective: Patienceyoly Collinsronald PGY1 Progress Note for Dr. Infante Pt was examined at bedside this morning. He reports passing flatus, giving him a crampy feeling in the abdomen. He denies fever, chills, nausea, vomiting, diarrhea, pain. Objective - Vital Signs/Intake and Output Vital Signs (last 24 hours): Temp Pulse Resp BP Pulse Ox 97.6 F 62 18 179/68 H 94 L 10/20/18 14:20 10/20/18 14:20 10/20/18 14:20 10/20/18 14:20 10/20/18 11:26 Intake and Output: 10/21/18 10/21/18 06:59 18:59 Intake Total 800 Output Total 420 Balance 380 - Medications Medications: Current Medications Acetaminophen (Tylenol 325mg Tab) 650 mg PO Q6H PRN PRN Reason: Fever >100.4 F Aspirin (Aspirin Chewable) 81 mg PO DAILY [facility] Last Admin: 10/19/18 13:19 Dose: 81 mg Atorvastatin Calcium (Lipitor) 40 mg PO DIN [facility] Last Admin: 10/20/18 17:51 Dose: 40 mg Cholecalciferol (Vitamin D) 1,000 intlu PO DAILY [facility] Last Admin: 10/20/18 11:39 Dose: 1,000 intlu Docusate Sodium (Colace) 100 mg PO DAILY [facility] Last Admin: 10/20/18 11:39 Dose: Not Given Enoxaparin Sodium (Lovenox) 40 mg SC DAILY [facility]; Protocol Last Admin: 10/20/18 11:35 Dose: 40 mg Famotidine (Pepcid) 40 mg PO HS [facility] Last Admin: 10/20/18 22:05 Dose: 40 mg Lactated Ringer's (Lactated Ringer's) 1,000 mls @ 75 mls/hr IV .[id number] [facility] Last Admin: 10/20/18 22:44 Dose: 75 mls/hr Metoprolol Tartrate (Lopressor) 25 mg PO BID [facility] Last Admin: 10/20/18 11:40 Dose: 25 mg Ondansetron HCl (Zofran Inj) 4 mg IVP Q4H PRN PRN Reason: Nausea/Vomiting Simethicone (Mylicon Chew Tab) 80 mg PO [facility] PRN PRN Reason: GI distress Last Admin: 10/19/18 17:11 Dose: 80 mg - Labs Labs: 10/19/18 06:45 10/21/18 07:00 PT 13.5 SECONDS (9.4-12.5) H 10/16/18 10:25 INR 1.19 10/16/18 10:25 APTT 31.5 Seconds (26.9-38.3) 10/16/18 10:25 - Constitutional Appears: Well, No Acute Distress - Head Exam Head Exam: ATRAUMATIC, NORMOCEPHALIC - Eye Exam Eye Exam: Normal appearance Pupil Exam: NORMAL ACCOMODATION - Respiratory Exam Respiratory Exam: Clear to Ausculation Bilateral, NORMAL BREATHING PATTERN. absent: Rales, Rhonchi, Wheezes - Cardiovascular Exam Cardiovascular Exam: REGULAR RHYTHM, +S1, +S2. absent: Gallop, Rubs, Murmur - GI/Abdominal Exam GI & Abdominal Exam: Soft, Normal Bowel Sounds. absent: Distended, Tenderness Additional comments: Mild zaira-incisional tenderness. Dressing, clean, dry and intact. Drain with 10cc/24hr bile tinged output - Extremities Exam Extremities Exam: Normal Inspection. absent: Pedal Edema - Neurological Exam Neurological Exam: Alert, Awake, Oriented x3 - Psychiatric Exam Psychiatric exam: Normal Affect, Normal Mood - Skin Skin Exam: Normal Color Assessment and Plan - Assessment and Plan (Free Text) Assessment: 78yo M w/ acute on chronic cholecystitis s/p lap converted to open cholecystectomy. POD 4 Plan: - f/u HIDA reading - f/u C.diff studies - Pain mgmt - HHD - Strict Is & Os - Encourage OOBTC and ambulation - recommend GI consult for possible gastric Bezoar Case discussed with Dr. Infante
[2018-10-21 09:09] LABS: BASO # 0.01 K/mm3 (0.0-2.0); BASO % 0.2 % (0.0-3.0); EOS # 0.2 (0.0-0.7); EOS % 3.4 % (1.5-5.0); HEMOGLOBIN 11.2 g/dL (14.0-18.0); LYMPH # 1.3 (1.2-3.4); LYMPH % 23.1 % (22.0-35.0); MEAN CELL VOLUME 91.3 fl (80.0-105.0); MEAN CORPUSCULAR HEMOGLOBIN 30.5 pg (25.0-35.0); MEAN CORPUSCULAR HGB CONC 33.4 g/dl (31.0-37.0); MEAN PLATELET VOLUME 11.1 fl (7.0-11.0); MONO # 0.6 (0.1-0.6); MONO % 10.3 % (1.0-6.0); RBC 3.67 10^6/uL (3.5-6.1); RED CELL DISTRIBUTION WIDTH 12.9 % (11.5-14.5); WHITE BLOOD COUNT 5.8 10^3/uL (4.5-11.0)
[2018-10-21] MEDS: Cholecalciferol 1,000 INTLU TAB PO SCH (09:23)
[2018-10-21] MEDS: Enoxaparin 40 mg Syringe SC SCH (09:29)
--- NOTE | 2018-10-21 13:19 | CP.PCM.PN ---
<Lonnie Stock - Last Filed: 10/21/18 13:21> Subjective - Date & Time of Evaluation Date of Evaluation: 10/21/18 Time of Evaluation: 07:30 - Subjective Subjective: Lonnie Stock PGY-1 Progress Note for Hospitalist Service Patient seen and evaluated at bedside. No acute events reported overnight. Patient reports gas pains and abdominal distension are improving, although patient reports increased flatulence. Patient continues to have minimal bilious drainage from VIN. Objective - Vital Signs/Intake and Output Vital Signs (last 24 hours): Temp Pulse Resp BP Pulse Ox 97.6 F 62 18 136/68 94 L 10/20/18 14:20 10/20/18 14:20 10/20/18 14:20 10/21/18 09:22 10/20/18 11:26 Intake and Output: 10/21/18 10/21/18 06:59 18:59 Intake Total 800 Output Total 420 Balance 380 - Medications Medications: Current Medications Acetaminophen (Tylenol 325mg Tab) 650 mg PO Q6H PRN PRN Reason: Fever >100.4 F Aspirin (Aspirin Chewable) 81 mg PO DAILY [facility] Last Admin: 10/19/18 13:19 Dose: 81 mg Atorvastatin Calcium (Lipitor) 40 mg PO DIN [facility] Last Admin: 10/20/18 17:51 Dose: 40 mg Cholecalciferol (Vitamin D) 1,000 intlu PO DAILY [facility] Last Admin: 10/21/18 09:23 Dose: 1,000 intlu Docusate Sodium (Colace) 100 mg PO DAILY [facility] Last Admin: 10/21/18 09:22 Dose: Not Given Enoxaparin Sodium (Lovenox) 40 mg SC DAILY [facility]; Protocol Last Admin: 10/21/18 09:29 Dose: 40 mg Famotidine (Pepcid) 40 mg PO HS [facility] Last Admin: 10/20/18 22:05 Dose: 40 mg Metoprolol Tartrate (Lopressor) 25 mg PO BID [facility] Last Admin: 10/21/18 09:22 Dose: 25 mg Ondansetron HCl (Zofran Inj) 4 mg IVP Q4H PRN PRN Reason: Nausea/Vomiting Simethicone (Mylicon Chew Tab) 80 mg PO [facility] PRN PRN Reason: GI distress Last Admin: 10/19/18 17:11 Dose: 80 mg - Labs Labs: 10/21/18 08:29 10/21/18 07:00 PT 13.5 SECONDS (9.4-12.5) H 10/16/18 10:25 INR 1.19 10/16/18 10:25 APTT 31.5 Seconds (26.9-38.3) 10/16/18 10:25 - Additional Findings Additional findings: - Constitutional Appears: Non-toxic, No Acute Distress - Head Exam Head Exam: ATRAUMATIC, NORMOCEPHALIC - Eye Exam Eye Exam: EOMI, PERRL - ENT Exam ENT Exam: Mucous Membranes Moist - Neck Exam Neck Exam: Full ROM, Normal Inspection - Respiratory Exam Respiratory Exam: Clear to Ausculation Bilateral, NORMAL BREATHING PATTERN. absent: Accessory Muscle Use, Rales, Rhonchi, Wheezes, Respiratory Distress - Cardiovascular Exam Cardiovascular Exam: REGULAR RHYTHM, RRR, +S1, +S2. absent: Gallop, Rubs, Murmur - GI/Abdominal Exam GI & Abdominal Exam: Soft, Tenderness (diffuse tenderness to palpation, worst near surgical site), Hypoactive Bowel Sounds, Distension. absent: Guarding, Rebound Additional comments: RUQ incision and laparotomy incisions clean, dry, intact, VIN continues to have green, bilious drainage - Extremities Exam Extremities Exam: Full ROM, Normal Inspection. 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 S/p lap converted to open cholecystectomy POD #4. Plan: Cholecystitis S/p lap converted to open cholecystectomy POD 4 Has remained afebrile without leukocytosis VIN bile-tinged output 10 cc HIDA scan report per Radiologist tech per Radiologist report (study does not appear in [employer] reports): No evidence to suggest bile leak. Encouraged patient again to get OOB to chair, ambulate as much as possible, IS use Zofran PRN Discontinue LR as tolerating diet per surgery Discontinue flagyl/rocephin per surgery f/u C Diff studies DENISE- resolved Renal function parameters continue to improve Likely 2/2 pre-renal azotemia from poor PO intake Continue to monitor Hypophosphatemia Replaced Recheck in AM Post-op constipation - resolved Report of multiple loose watery stools Discontinue colace and miralax PRN HTN Home meds resumed HLD Continue home lipitor DVT/GI PPX: Lovenox/pepcid Full Code HHD Monitor on med/surg Patient seen, case reviewed and plan approved by Dr. Alanna Baker. Lonnie Stock, PGY-1 <Cassie Baker R - Last Filed: 10/21/18 16:21> Objective - Vital Signs/Intake and Output Vital Signs (last 24 hours): Temp Pulse Resp BP Pulse Ox 97.6 F 62 18 136/68 94 L 10/20/18 14:20 10/20/18 14:20 10/20/18 14:20 10/21/18 09:22 10/20/18 11:26 Intake and Output: 10/21/18 10/21/18 06:59 18:59 Intake Total 800 Output Total 420 Balance 380 - Medications Medications: Current Medications Acetaminophen (Tylenol 325mg Tab) 650 mg PO Q6H PRN PRN Reason: Fever >100.4 F Aspirin (Aspirin Chewable) 81 mg PO DAILY [facility] Last Admin: 10/19/18 13:19 Dose: 81 mg Atorvastatin Calcium (Lipitor) 40 mg PO DIN [facility] Last Admin: 10/20/18 17:51 Dose: 40 mg Cholecalciferol (Vitamin D) 1,000 intlu PO DAILY [facility] Last Admin: 10/21/18 09:23 Dose: 1,000 intlu Enoxaparin Sodium (Lovenox) 40 mg SC DAILY [facility]; Protocol Last Admin: 10/21/18 09:29 Dose: 40 mg Famotidine (Pepcid) 40 mg PO HS [facility] Last Admin: 10/20/18 22:05 Dose: 40 mg Metoprolol Tartrate (Lopressor) 25 mg PO BID [facility] Last Admin: 10/21/18 09:22 Dose: 25 mg Ondansetron HCl (Zofran Inj) 4 mg IVP Q4H PRN PRN Reason: Nausea/Vomiting Simethicone (Mylicon Chew Tab) 80 mg PO [facility] PRN PRN Reason: GI distress Last Admin: 10/19/18 17:11 Dose: 80 mg - Labs Labs: 10/21/18 08:29 10/21/18 07:00 PT 13.5 SECONDS (9.4-12.5) H 10/16/18 10:25 INR 1.19 10/16/18 10:25 APTT 31.5 Seconds (26.9-38.3) 10/16/18 10:25 Attending/Attestation - Attestation I have personally seen and examined this patient.: Yes I have fully participated in the care of the patient.: Yes I have reviewed all pertinent clinical information, including history, physical exam and plan: Yes Notes (Text): Patient seen and examined by me with resident at 10:25 AM on 10/21/18. Case including HPI, physical exam, and assessment and plan discussed with resident. Agree with above with following additions/corrections. Patient is a 78-year-old male with past medical history significant for rectal abscess, colitis, coronary artery disease status post stents, third-degree AV block status post pacemaker placement, GERD, GI bleed, DVT, pulmonary embolism, prostate cancer, previous smoker, hyperlipidemia, and hypertension that presented to the emergency room with mid lower abdominal pain that started 3 days prior to admission. Patient states he is feeling a little better. States he is passing gas and watery bowel movements. States his abdomen feels "gassy" and the pain he is having is "gassy pain." Patient feels that his abdomen is a little less distended. Patient is tolerating his diet. No nausea or vomiting. Patient denies any chest pain or shortness of breath. No headaches or dizziness. No fevers or chills. No dysuria. Physical exam: General: Awake and alert, lying in bed in no acute distress. HEENT: Normocephalic, atraumatic, Extraocular muscles intact, pupils equal and reactive, no scleral icterus. Oropharynx is pink and moist. Neck is supple. Cardiovascular: Normal rhythm. Normal S1 and S2. No murmurs, rubs, or gallops appreciated. Pulmonary: Normal respiratory effort. No rhonchi, rales, or wheezing appreciated. Gastrointestinal: Soft. Positive distention. Positive generalized tenderness, worse at incision sites. Drain in place. Dressing mildly soaked and intact. Positive bowel sounds all 4 quadrants. No guarding. Musculoskeletal: Moves all extremities. No calf tenderness. No edema appreciated. Central nervous system: AAO x 3, CN 2-12 grossly intact. Dermatologic: Skin warm and dry. Assessment and plan: Patient is a 78-year-old male with past medical history significant for rectal abscess, colitis, coronary artery disease status post stents, third-degree AV block status post pacemaker placement, GERD, GI bleed, DVT, pulmonary embolism, prostate cancer, previous smoker, hyperlipidemia, and hypertension that presented to the emergency room with mid lower abdominal pain that started 3 days prior to admission. 1. Acute cholecystitis. CT abdomen and pelvis on 10/16/2018 per radiologist showed dense sludge in the gallbladder, inflammatory changes seen around the gallbladder suspicious for acute cholecystitis. Abdominal ultrasound on 10/16/2018 per radiologist showed small stones seen in the gallbladder including the gallbladder neck, mural thickening, gallbladder wall measures 6.6 mm, no focal tenderness, possible cholecystitis. HIDA scan on 10/16/2018 per radiologist showed nonvisualization of the gallbladder consistent with acute cholecystitis. Patient was seen by cardiology for clearance for cholecystectomy. Patient status post laparoscopic converted to open cholecystectomy 10/17/2018. Surgical team following, recommendations appreciated. Official results for HIDA scan to rule out biliary leak pending, preliminary results show no leak. Continue incentive spirometer. Wound culture negative. Encourage out of bed. Pending surgical clearance. Drain in place. Antibiotics stopped per surgical team. Leukocytosis resolved. Patient afebrile. 2. DENISE. Resovled with IV fluids. Continue to monitor. 3. Constipation. Resolved. Now with diarrhea. Colace stopped. C-diff negative. Continue simethicone as needed. Continue to monitor. 4. Coronary artery disease. No acute issues. No chest pain. Continue ASA, lipitor, and metoprolol. 5. S/P pacemaker for third degree AV block. No acute issues, cardiology f crescencio, recommendations appreciated. 6. Hypertension. Continue metoprolol. 7. Hyperlipidemia. Continue Lipitor 8. GI/DVT prophylaxis. Pepcid/Lovenox 9. Patient is a full code. Case was discussed in detail with the patient regarding current diagnosis and treatment plan. All questions answered.
[2018-10-21] MEDS ORDERED: Potassium & Sodium Phosphate PO ONE (13:20)
--- NOTE | 2018-10-21 22:53 | PN ---
DATE: 10/21/2018 REASON FOR CONSULTATION AND FOLLOWUP: Preop evaluation and postoperative followup for cholecystectomy, history of coronary artery disease, history of pacemaker. SUBJECTIVE: The patient denies any chest pain, shortness of breath, any palpitation. Complaining of some distention of the abdomen after eating but denies any abdominal pain. PHYSICAL EXAMINATION: GENERAL: Not in distress. VITAL SIGNS: Temperature afebrile, heart rate 60, blood pressure 136/68. HEENT: PERRLA. Extraocular muscles intact. NECK: Supple. No carotid bruit or thyromegaly. CHEST: Clear to auscultation. HEART: S1 and S2 regular. ABDOMEN: Soft. EXTREMITIES: Clubbing, cyanosis negative. LABORATORY DATA: Blood workup as follows: WBC 5.8, hemoglobin 11.8, hematocrit 33.5, platelet count 285. Chemistry shows sodium 130, potassium 3.5, chloride 106, carbon dioxide 30, anion gap of 9, BUN 19, creatinine 1. Total protein 5.7, albumin 2.7. IMPRESSION: A 78-year-old male with past medical history significant for coronary artery disease, status post stent in 2012, high-grade atrioventricular block, status post [employer] VVI single-chamber pacemaker on 02/20/2014, history of rectal abscess in 2017 complicated by wound debridement and pulmonary embolism, anticoagulation for six months; colitis, gastroesophageal reflux, gastrointestinal bleed, history of deep vein thrombosis, prostate carcinoma who was recently admitted with acute cholecystitis, status post cholecystectomy, history of left carotid endarterectomy on 02/21/2014. Off anticoagulation postoperative day 4, feels abdominal distension after cholecystectomy, tolerating food but having diarrhea. RECOMMENDATIONS: Continue followup closely as per clinical documentation consultant and team. Continue low-dose beta kim. Continue IV hydration. Monitor electrolytes. Supplement electrolytes as needed. Increase the nutritional support as tolerated. The patient is already on [id number]-[id number]. We will follow with you. Repeat the labs in the morning. Thank you Dr. Zamora for providing us the opportunity in taking care of the patient [place] Fernando. Gale Mora MD [facility] # [id number]
[2018-10-22 07:22] LABS: ALBUMIN 2.6 g/dL (3.0-4.8); ALT/SGPT 31 U/L (7-56); AST/SGOT 46 U/L (17-59); BLOOD UREA NITROGEN 15 mg/dL (7-21); CALCIUM 8.1 mg/dL (8.4-10.5); GFR NON-AFRICAN AMERICAN > 60
[2018-10-22 08:19] VITALS: O2SAT 97
--- NOTE | 2018-10-22 08:25 | CP.PCM.PN ---
Subjective - Date & Time of Evaluation Date of Evaluation: 10/22/18 Time of Evaluation: 08:21 - Subjective Subjective: Patiencebrandttaz Guadaluperafaelafranklynshanon PGY1 Progress Note for Dr. Infante Pt was examined at bedside this morning. He reports feeling well, only complaini ng of abdominal fullness. He reports a few episodes of watery stool. He denies fever, chills, nausea, or abdominal pain. Objective - Vital Signs/Intake and Output Vital Signs (last 24 hours): Temp Pulse Resp BP Pulse Ox 98 F 60 16 129/65 97 10/22/18 06:00 10/22/18 06:00 10/22/18 06:00 10/22/18 06:00 10/22/18 06:00 Intake and Output: 10/22/18 10/22/18 06:59 18:59 Intake Total 740 Output Total 320 Balance 420 - Medications Medications: Current Medications Acetaminophen (Tylenol 325mg Tab) 650 mg PO Q6H PRN PRN Reason: Fever >100.4 F Aspirin (Aspirin Chewable) 81 mg PO DAILY [facility] Last Admin: 10/19/18 13:19 Dose: 81 mg Atorvastatin Calcium (Lipitor) 40 mg PO DIN [facility] Last Admin: 10/21/18 17:52 Dose: 40 mg Cholecalciferol (Vitamin D) 1,000 intlu PO DAILY [facility] Last Admin: 10/21/18 09:23 Dose: 1,000 intlu Enoxaparin Sodium (Lovenox) 40 mg SC DAILY [facility]; Protocol Last Admin: 10/21/18 09:29 Dose: 40 mg Famotidine (Pepcid) 40 mg PO HS [facility] Last Admin: 10/21/18 21:27 Dose: 40 mg Metoprolol Tartrate (Lopressor) 25 mg PO BID [facility] Last Admin: 10/21/18 17:56 Dose: 25 mg Ondansetron HCl (Zofran Inj) 4 mg IVP Q4H PRN PRN Reason: Nausea/Vomiting Simethicone (Mylicon Chew Tab) 80 mg PO PCHS PRN PRN Reason: GI distress Last Admin: 10/19/18 17:11 Dose: 80 mg - Labs Labs: 10/21/18 08:29 10/22/18 06:30 PT 13.5 SECONDS (9.4-12.5) H 10/16/18 10:25 INR 1.19 10/16/18 10:25 APTT 31.5 Seconds (26.9-38.3) 10/16/18 10:25 - Constitutional Appears: No Acute Distress - Head Exam Head Exam: NORMOCEPHALIC - Eye Exam Eye Exam: Normal appearance Pupil Exam: NORMAL ACCOMODATION - ENT Exam ENT Exam: Mucous Membranes Moist - Respiratory Exam Respiratory Exam: Clear to Ausculation Bilateral, NORMAL BREATHING PATTERN. absent: Rales, Rhonchi, Wheezes - Cardiovascular Exam Cardiovascular Exam: +S1, +S2. absent: Gallop, Rubs, Murmur - GI/Abdominal Exam GI & Abdominal Exam: Soft, Tenderness, Normal Bowel Sounds. absent: Distended Additional comments: Mild zaira-incisional tenderness. Dressing, clean, dry and intact. Drain with 5cc/24hr serosanguinous output - Extremities Exam Extremities Exam: Normal Inspection. absent: Pedal Edema - Back Exam Back Exam: NORMAL INSPECTION - Neurological Exam Neurological Exam: Alert, Awake, Oriented x3 - Psychiatric Exam Psychiatric exam: Normal Affect, Normal Mood - Skin Skin Exam: Normal Color Assessment and Plan - Assessment and Plan (Free Text) Assessment: 78yo M w/ acute on chronic cholecystitis s/p lap converted to open erick cystectomy. POD 5 Plan: - C.diff studies negative for toxin - drain no longer containing bile - Encourage ambulation - stable for d/c from surgical standpoint - f/u with Dr. Infante in clinic next week for drain removal Case discussed with Dr. Infante
[2018-10-22] MEDS: Enoxaparin 40 mg Syringe SC SCH (10:20)
[2018-10-22] MEDS: Cholecalciferol 1,000 INTLU TAB PO SCH (10:20)
[2018-10-22 13:39] VITALS: BP 114/58; PULSE 65; RESP 20; TEMP 98.2
--- NOTE | 2018-10-22 13:51 | CP.PCM.DIS ---
<BarringtonLonnie bonilla - Last Filed: 10/22/18 14:15> Provider - Provider Date of Admission: 10/16/18 13:02 Attending physician: Dashawn Zamora MD Primary care physician: Dr. Orantes Consults: 10/16/18 13:02 General Surgery Consult Stat Comment: Consulting Provider: Go Infante Consulting Physician: Go Infante Reason for Consult: acute cholecystitis 10/16/18 14:48 Cardiology Consult Routine Comment: Consulting Provider: Gale Mora Consulting Physician: Gale Mora Reason for Consult: cardiac risk stratification, preop 10/16/18 20:18 Inpatient CLERICAL SECRETARY Core Measures Referral Routine Comment: Physician Instructions: Reason For Exam: EVALUATION Transition In Care/Readmission Reduction Routine Comment: Physician Instructions: Reason For Exam: EVALUATION 10/18/18 13:50 Nursing Referral for Wound Care Routine Comment: Physician Instructions: Reason For Exam: s/P or 10/22/18 11:52 VNA [Case Management Referral] Routine Comment: Physician Instructions: PT for strentghening and HEP Reason For Exam: SN for disease and medication management. Reason for Referral: VNA Eval Time Spent in preparation of Discharge (in minutes): 40 Hospital Course - Lab Results Lab Results: Micro Results 10/21/18 08:00 Stool C. difficile Antigen & Toxins A,B - Final 10/17/18 16:31 Gallbladder Gram Stain - Final 10/17/18 16:31 Gallbladder Anaerobic Culture - Final NO ANAEROBES ISOLATED. 10/17/18 16:31 Gallbladder Wound Culture - Final No growth. Most Recent Lab Values WBC 5.8 10^3/uL (4.5-11.0) D 10/21/18 08:29 RBC 3.67 10^6/uL (3.5-6.1) 10/21/18 08:29 Hgb 11.2 g/dL (14.0-18.0) L 10/21/18 08:29 Hct 33.5 % (42.0-52.0) L 10/21/18 08:29 MCV 91.3 fl (80.0-105.0) 10/21/18 08:29 MCH 30.5 pg (25.0-35.0) 10/21/18 08:29 MCHC 33.4 g/dl (31.0-37.0) 10/21/18 08: RDW 12.9 % (11.5-14.5) 10/21/18 08:29 Plt Count 285 10^3/uL (120.0-450.0) 10/21/18 08:29 MPV 11.1 fl (7.0-11.0) H 10/21/18 08:29 Neut % (Auto) 63.0 % (50.0-68.0) 10/21/18 08: Lymph % (Auto) 23.1 % (22.0-35.0) 10/21/18 08: Rush % (Auto) 10.3 % (1.0-6.0) H 10/21/18 08: Eos % (Auto) 3.4 % (1.5-5.0) 10/21/18 08: Baso % (Auto) 0.2 % (0.0-3.0) 10/21/18 08: Lymph # (Auto) 1.3 (1.2-3.4) 10/21/18 08:29 Rush # (Auto) 0.6 (0.1-0.6) 10/21/18 08: Eos # (Auto) 0.2 (0.0-0.7) 10/21/18 08: Baso # (Auto) 0.01 K/mm3 (0.0-2.0) 10/21/18 08:29 Absolute Neuts (auto) 3.66 (1.4-6.5) 10/21/18 08:29 PT 13.5 SECONDS (9.4-12.5) H 10/16/18 10:25 INR 1.19 10/16/18 10:25 APTT 31.5 Seconds (26.9-38.3) 10/16/18 10:25 Sodium 138 mmol/L (132-148) 10/22/18 06:30 Potassium 3.7 mmol/L (3.6-5.0) 10/22/18 06:30 Chloride 107 mmol/L (98-107) 10/22/18 06:30 Carbon Dioxide 27 mmol/L (21-33) 10/22/18 06:30 Anion Gap 7 (10-20) L 10/22/18 06:30 BUN 15 mg/dL (7-21) 10/22/18 06:30 Creatinine 1.0 mg/dl (0.8-1.5) 10/22/18 06:30 Est GFR ( Amer) > 60 10/22/18 06:30 Est GFR (Non-Af Amer) > 60 10/22/18 06:30 Random Glucose 105 mg/dL (70-110) 10/22/18 06:30 Hemoglobin A1c 5.8 % (4.2-6.5) 10/17/18 07:30 Calcium 8.1 mg/dL (8.4-10.5) L 10/22/18 06:30 Phosphorus 2.5 mg/dL (2.5-4.5) 10/22/18 06:30 Magnesium 1.9 mg/dL (1.7-2.2) 10/22/18 06:30 Total Bilirubin 0.3 mg/dL (0.2-1.3) 10/22/18 06:30 AST 46 U/L (17-59) 10/22/18 06:30 ALT 31 U/L (7-56) 10/22/18 06:30 Alkaline Phosphatase 50 U/L (38-126) 10/22/18 06:30 Total Protein 5.4 g/dL (5.8-8.3) L 10/22/18 06:30 Albumin 2.6 g/dL (3.0-4.8) L 10/22/18 06:30 Globulin 2.7 gm/dL 10/22/18 06:30 Albumin/Globulin Ratio 1.0 (1.1-1.8) L 10/22/18 06:30 Triglycerides 115 mg/dL (35-160) 10/17/18 07:30 Cholesterol 170 mg/dL (130-200) 10/17/18 07:30 LDL Cholesterol Direct 95 mg/dL (0-129) 10/17/18 07:30 HDL Cholesterol 30 mg/dL (29-60) 10/17/18 07:30 Lipase 38 U/L (23-300) 10/16/18 10:25 TSH 3rd Generation 1.28 mIU/mL (0.46-4.68) 10/17/18 07:30 Ur Random Creatinine 426 mg/dL 10/16/18 21:25 Ur Random Sodium 31 meq/L 10/16/18 20:30 Ur Random Urea Nitrogn 978 mg/dL 10/16/18 21:25 Blood Type A POSITIVE 10/16/18 10:25 Antibody Screen Negative 10/16/18 10:25 BBK History Checked Patient has bt 10/16/18 10:25 - Hospital Course Hospital Course: Lonnie Elfegokaren, PGY-1 Discharge Summary for Hospitalist Service Mr. Fernando is a 78-year-old male with past medical history significant for rec trixie abscess, colitis, coronary artery disease status post stents, third-degree AV block status post pacemaker placement, GERD, GI bleed, DVT, pulmonary embolism, prostate cancer, previous smoker, hyperlipidemia, and hypertension that presented to the emergency room with mid lower abdominal pain that started 3 days prior to admission. CT abdomen and pelvis on 10/16/2018 per radiologist showed dense sludge in the gallbladder, inflammatory changes seen around the gallbladder suspicious for acute cholecystitis. Abdominal ultrasound on 10/16/2018 was then ordered and then per radiologist showed small stones seen in the gallbladder including the gallbladder neck, mural thickening, gallbladder wall measures 6.6 mm, no focal tenderness, possible cholecystitis. Surgery team - Dr. Infante - was consulted. HIDA scan on 10/16/2018 per radiologist showed nonvisualization of the gallbladder consistent with acute cholecystitis. Patient was seen by cardiology and received clearance for cholecystectomy. Patient status post laparoscopic converted to open cholecystectomy on 10/17/2018. Surgical team has been following. Official results for HIDA scan ruled out biliary leak. Patient received incentive spirometer. Wound culture performed and was negative. Patient was encouraged to get out of bed. Patient received surgical clearance for discharge and close followup within one week with abdominal drain in place. Antibiotics were discontinued per surgical team. Leukocytosis resolved, and patient remained afebrile. Patient also came in with mild DENISE. that resovled with IV fluids. Patient received opioid pain medication and therefore recieved Colace to prevent constipation. Patient then started having a few episodes of watery bowel movements, at which point Colace was stopped. C-diff studies were ordered and negative. Patient denied loose stools on day of discharge, describing them as soft. On day of discharge, patient reports improved abdominal distension. Patient tolerating diet, urinating spontaneously and has had normal bowel movements. No further episodes of loose bowel movements. Patient reports zaira-incisional pain but denies chest pain, palpitations, shortness of breath, diarrhea, constipation, blurry vision, headaches. Patient questions were answered in detail and to patient satisfaction. Instructions were provided as below: Please follow up with your PMD Dr. Orantes within 3-5 days. You are being sent home with a right abdominal drain. Please follow up with Dr. Infante on Sunday10/29/18 for drain removal. You are able to shower per surgical recommendations. Please avoid any heavy lifting until you follow up with Dr. Infante. Please resume all medications as prescribed. Please continue Aspirin starting tomorrow 10/23/18. Should symptoms worsen, please visit nearest emergency department. Patient seen, case reviewed and plan approved by Dr. Baker. Lonnie Stock, PGY-1 Discharge Exam - Additional Findings Additional findings: - Constitutional Appears: Non-toxic, No Acute Distress - Head Exam Head Exam: ATRAUMATIC, NORMOCEPHALIC - Eye Exam Eye Exam: EOMI, PERRL - ENT Exam ENT Exam: Mucous Membranes Moist - Neck Exam Neck Exam: Full ROM, Normal Inspection - Respiratory Exam Respiratory Exam: Clear to Ausculation Bilateral, NORMAL BREATHING PATTERN. absent: Accessory Muscle Use, Rales, Rhonchi, Wheezes, Respiratory Distress - Cardiovascular Exam Cardiovascular Exam: REGULAR RHYTHM, RRR, +S1, +S2. absent: Gallop, Rubs, Murmur - GI/Abdominal Exam GI & Abdominal Exam: Soft, Tenderness (diffuse tenderness to palpation, worst near surgical site), Hypoactive Bowel Sounds, Distension. absent: Guarding, Rebound Additional comments: RUQ incision and laparotomy incisions clean, dry, intact, VIN continues to put out mildly green, bilious drainage - Extremities Exam Extremities Exam: Full ROM, Normal Inspection. absent: Pedal Edema - Back Exam Back Exam: NORMAL INSPECTION - Neurological Exam Neurological Exam: Alert, Awake, Oriented x3 - Psychiatric Exam Psychiatric exam: Normal Affect, Normal Mood - Skin Skin Exam: Dry, Intact, Warm Discharge Plan - Follow Up Plan Condition: FAIR Disposition: HOME/ ROUTINE Instructions: Gallstones (DC), Cholecystitis (DC), Cholecystitis (GEN), Acute Abdominal Pain (DC) Additional Instructions: Please follow up with your PMD Dr. Orantes within 3-5 days. You are being sent home with a right abdominal drain. Please follow up with Dr. Infante on Sunday10/29/18 for drain removal. You are able to shower per surgical recommendations. Please avoid any heavy lifting until you follow up with Dr. Infante. Please resume all medications as prescribed. Please continue Aspirin starting tomorrow 10/23/18. Should symptoms worsen, please visit nearest emergency department. Referrals: Bowen Orantes MD [Family Provider] - Go Infante MD [Staff Provider] - <Cassie Baker R - Last Filed: 10/22/18 16:18> Provider - Provider Date of Admission: 10/16/18 13:02 Attending physician: Dashawn Zamora MD Consults: 10/16/18 13:02 General Surgery Consult Stat Comment: Consulting Provider: Go Infante Consulting Physician: Go Infante Reason for Consult: acute cholecystitis 10/16/18 14:48 Cardiology Consult Routine Comment: Consulting Provider: Gale Mora Consulting Physician: Gale Mora Reason for Consult: cardiac risk stratification, preop 10/16/18 20:18 Inpatient CLERICAL SECRETARY Core Measures Referral Routine Comment: Physician Instructions: Reason For Exam: EVALUATION Transition In Care/Readmission Reduction Routine Comment: Physician Instructions: Reason For Exam: EVALUATION 10/18/18 13:50 Nursing Referral for Wound Care Routine Comment: Physician Instructions: Reason For Exam: s/P or 10/22/18 11:52 VNA [Case Management Referral] Routine Comment: Physician Instructions: PT for strentghening and HEP Reason For Exam: SN for disease and medication management. Reason for Referral: VNA [facility] Hospital Course - Lab Results Lab Results: Micro Results 10/21/18 08:00 Stool C. difficile Antigen & Toxins A,B - Final 10/17/18 16:31 Gallbladder Gram Stain - Final 10/17/18 16:31 Gallbladder Anaerobic Culture - Final NO ANAEROBES ISOLATED. 10/17/18 16:31 Gallbladder Wound Culture - Final No growth. Most Recent Lab Values WBC 5.8 10^3/uL (4.5-11.0) D 10/21/18 08:29 RBC 3.67 10^6/uL (3.5-6.1) 10/21/18 08:29 Hgb 11.2 g/dL (14.0-18.0) L 10/21/18 08:29 Hct 33.5 % (42.0-52.0) L 10/21/18 08: MCV 91.3 fl (80.0-105.0) 10/21/18 08: MCH 30.5 pg (25.0-35.0) 10/21/18 08: MCHC 33.4 g/dl (31.0-37.0) 10/21/18 08: RDW 12.9 % (11.5-14.5) 10/21/18 08: Plt Count 285 10^3/uL (120.0-450.0) 10/21/18 08: MPV 11.1 fl (7.0-11.0) H 10/21/18 08: Neut % (Auto) 63.0 % (50.0-68.0) 10/21/18 08: Lymph % (Auto) 23.1 % (22.0-35.0) 10/21/18 08: Rush % (Auto) 10.3 % (1.0-6.0) H 10/21/18 08: Eos % (Auto) 3.4 % (1.5-5.0) 10/21/18 08: Baso % (Auto) 0.2 % (0.0-3.0) 10/21/18 08: Lymph # (Auto) 1.3 (1.2-3.4) 10/21/18 08: Rush # (Auto) 0.6 (0.1-0.6) 10/21/18 08: Eos # (Auto) 0.2 (0.0-0.7) 10/21/18 08: Baso # (Auto) 0.01 K/mm3 (0.0-2.0) 10/21/18 08: Absolute Neuts (auto) 3.66 (1.4-6.5) 10/21/18 08: PT 13.5 SECONDS (9.4-12.5) H 10/16/18 10:25 INR 1.19 10/16/18 10:25 APTT 31.5 Seconds (26.9-38.3) 10/16/18 10:25 Sodium 138 mmol/L (132-148) 10/22/18 06:30 Potassium 3.7 mmol/L (3.6-5.0) 10/22/18 06:30 Chloride 107 mmol/L (98-107) 10/22/18 06:30 Carbon Dioxide 27 mmol/L (21-33) 10/22/18 06:30 Anion Gap 7 (10-20) L 10/22/18 06:30 BUN 15 mg/dL (7-21) 10/22/18 06:30 Creatinine 1.0 mg/dl (0.8-1.5) 10/22/18 06:30 Est GFR ( Amer) > 60 10/22/18 06:30 Est GFR (Non-Af Amer) > 60 10/22/18 06:30 Random Glucose 105 mg/dL (70-110) 10/22/18 06:30 Hemoglobin A1c 5.8 % (4.2-6.5) 10/17/18 07:30 Calcium 8.1 mg/dL (8.4-10.5) L 10/22/18 06:30 Phosphorus 2.5 mg/dL (2.5-4.5) 10/22/18 06:30 Magnesium 1.9 mg/dL (1.7-2.2) 10/22/18 06:30 Total Bilirubin 0.3 mg/dL (0.2-1.3) 10/22/18 06:30 AST 46 U/L (17-59) 10/22/18 06:30 ALT 31 U/L (7-56) 10/22/18 06:30 Alkaline Phosphatase 50 U/L (38-126) 10/22/18 06:30 Total Protein 5.4 g/dL (5.8-8.3) L 10/22/18 06:30 Albumin 2.6 g/dL (3.0-4.8) L 10/22/18 06:30 Globulin 2.7 gm/dL 10/22/18 06:30 Albumin/Globulin Ratio 1.0 (1.1-1.8) L 10/22/18 06:30 Triglycerides 115 mg/dL (35-160) 10/17/18 07:30 Cholesterol 170 mg/dL (130-200) 10/17/18 07:30 LDL Cholesterol Direct 95 mg/dL (0-129) 10/17/18 07:30 HDL Cholesterol 30 mg/dL (29-60) 10/17/18 07:30 Lipase 38 U/L (23-300) 10/16/18 10:25 TSH 3rd Generation 1.28 mIU/mL (0.46-4.68) 10/17/18 07:30 Ur Random Creatinine 426 mg/dL 10/16/18 21:25 Ur Random Sodium 31 meq/L 10/16/18 20:30 Ur Random Urea Nitrogn 978 mg/dL 10/16/18 21:25 Blood Type A POSITIVE 10/16/18 10:25 Antibody Screen Negative 10/16/18 10:25 BBK History Checked Patient has bt 10/16/18 10:25 Attending/Attestation - Attestation I have personally seen and examined this patient.: Yes I have fully participated in the care of the patient.: Yes I have reviewed all pertinent clinical information, including history, physical exam and plan: Yes Notes (Text): Patient seen and examined by me with resident at approximately 10:55AM and prior to discharge on 10/22/18. Case including discharge plan discussed with resident. Agree with above with following additions/corrections. Patient is a 78-year-old male with past medical history significant for rectal abscess, colitis, coronary artery disease status post stents, third-degree AV block status post pacemaker placement, GERD, GI bleed, DVT, pulmonary embolism, prostate cancer, previous smoker, hyperlipidemia, and hypertension that presented to the emergency room with mid lower abdominal pain that started 3 days prior to admission. Please see H&P for full details. Patient was found to have acute cholecystitis, acute kidney injury, constipation followed by diarrhea, coronary artery disease, status post pacemaker, hypertension, and hyperlipidemia. Patient was seen by surgical team. CT abdomen and pelvis on 10/16/2018 per radiologist showed dense sludge in the gallbladder, inflammatory changes seen around the gallbladder suspicious for acute cholecystitis. Abdominal ultrasound on 10/16/2018 per radiologist showed small stones seen in the gallbladder including the gallbladder neck, mural thickening, gallbladder wall measures 6.6 mm, no focal tenderness, possible cholecystitis. HIDA scan on 10/16/2018 per radiologist showed nonvisualization of the gal lbladder consistent with acute cholecystitis. Patient was seen by cardiology for clearance for cholecystectomy. Patient had laparoscopic converted to open cholecystectomy 10/17/2018. Drain was placed. There was a question of a possible bilary leak. Repeat HIDA scan was done which per radiologist did not show a biliary leak. Patient was continued on incentive spirometer. Wound culture was negative. Antibiotics were stopped per surgical team. Leukocytosis resolved. Patient remained afebrile. Patient was encouraged out of bed. Patient was ambulating without difficulty prior to discharge. Patient also initially had constipation was placed on Colace. Patient then developed diarrhea and Colace was stopped. Diarrhea improved upon discharge. C. difficile was negative. Patient was also found to have DENISE. Creatinine was 1.7 on admission. This resolved with IV fluids and creatinine was 1 on discharge. Patient was continued on Lipitor and metoprolol for coronary artery disease. Aspirin was held for surgery. Per cardiology, patient to restart aspirin tomorrow 10/23/2018. Patient was seen by surgical team on day of discharge who recommended keeping drain in. Patient was cleared for discharge by surgical team with follow-up in the office on 10/29/2018. Patient was feeling much better and was discharged home. On day of discharge, patient stated he was feeling much better. Abdominal pain much improved. Patient had one watery bowel movement today. Patient states his abdomen feels less "gassy" today. Patient ambulating without difficulty. No chest pain or palpitations. Patient denied nausea or vomiting. Patient was tolerating diet well. No headache or change in vision. No dizziness. No numbness or tingling. No fevers or chills. No dysuria. Physical exam: General: Awake and alert, lying in bed in no acute distress. HEENT: Normocephalic, atraumatic, Extraocular muscles intact, pupils equal and reactive, no scleral icterus. Oropharynx is pink and moist. Neck is supple. Cardiovascular: Normal rhythm. Normal S1 and S2. No murmurs, rubs, or gallops appreciated. Pulmonary: Normal respiratory effort. No rhonchi, rales, or wheezing appreciated. Gastrointestinal: Soft. Improved distention. Mild generalized tenderness, worse at incision sites. Drain in place with serosanguineous output. Dressing mildly soaked and intact. Positive bowel sounds all 4 quadrants. No guarding. Musculoskeletal: Moves all extremities. No calf tenderness. No edema appreciated. Central nervous system: AAO x 3, CN 2-12 grossly intact. Dermatologic: Skin warm and dry. Please see chart for full details. Follow up instructions: Patient to follow up with primary medical doctor within 3-5 days of discharge. Patient follow-up with Dr. Infante on 10/29/2018 for drain removal. He shouldn't avoid heavy lifting. Patient to restart aspirin tomorrow. All instructions explained to the patient in detail. Patient both understands and agrees to all instructions. Written instructions also given. Time spent in discharging the patient including chart review, medication reconciliation, discussion with the patient, medical receptionist assistant, consultants, and nursing staff was approximately 45 minutes.
--- NOTE | 2018-10-22 16:20 | PN ---
DATE: 10/22/2018 REASON FOR CONSULTATION AND FOLLOWUP: Preop evaluation and postop followup status post cholecystectomy, history of coronary artery disease, history of pacemaker. SUBJECTIVE: The patient denies any chest pain, shortness of breath, any palpitation. OBJECTIVE: GENERAL: Not in apparent distress. VITAL SIGNS: As follows: Temperature afebrile, heart rate 60, blood pressure 129/65. HEENT: PERRLA. Extraocular muscles intact. NECK: Supple. No carotid bruit or thyromegaly. CHEST: Clear to auscultation. HEART: S1, S2 regular. ABDOMEN: Soft. EXTREMITIES: Clubbing and cyanosis negative. LABORATORY DATA: Blood workup as follows: WBC 5.8, hemoglobin 11.3, hematocrit 33.5, platelet count 285. Chemistry: Sodium 130, potassium 3.7, chloride 107, carbon dioxide 27, anion gap of 7, BUN 15, creatinine 1. Total protein 5.4, albumin 2.7, albumin-globulin ratio 1. IMPRESSION: A 78-year-old male with history of coronary artery disease, peripheral arterial disease, history of percutaneous transluminal coronary angioplasty in 2012, high-grade atrioventricular block status post [employer] VVI pacemaker single-chamber on 02/20/2014, history of rectal abscess in 2017 complicated by wound debridement and pulmonary embolism, deep venous thrombosis, on anticoagulation for 6 months; history of gastroesophageal reflux, history of carotid endarterectomy, admitted with acute status post cholecystectomy. The patient is off aspirin postop as well as possibility of leak discussed with the patient. When the patient is stable and able to take and tolerate diet, we will suggest to start aspirin 24 hours after that. Discussed with the resident also taking care of the patient and the team that once the patient starts p.o., resume back aspirin. Also discussed with the patient, the patient is going home today, resume aspirin from tomorrow. I will follow with you. Thank you Dr. Zamora opportunity in taking care of [place]. If the patient is staying and tolerating, we will resume back aspirin tomorrow. Gale Mora MD
--- NOTE | 2018-10-22 21:53 | NM ---
Date of service: 10/20/2018 PROCEDURE: Nuclear Medicine Hepatobiliary Scan HISTORY: COMPARISON: None available. TECHNIQUE: 5.3 mCi of technetium 99m Mebrofenin was administered intravenously. Planar images of the abdomen were obtained at 5 min intervals to 60 mins. Delayed images were also obtained. FINDINGS: LIVER: Timely and homogenous uptake. COMMON BILE DUCT: identified at 15 mins. GALLBLADDER: Status post cholecystectomy. SMALL BOWEL: Identified at 21 mins. IMPRESSION: No nuclear evidence to suggest bile leak status post cholecystectomy.
--- NOTE | 2018-10-24 09:09 | OP ---
PROCEDURE DATE: 10/17/2018 PREOPERATIVE DIAGNOSIS: Acute cholecystitis. POSTOPERATIVE DIAGNOSIS: Acute cholecystitis. PROCEDURE: Diagnostic laparoscopy, laparoscopic cholecystectomy converted to open cholecystectomy. ESTIMATED BLOOD LOSS: Approximately 200 mL of blood loss. INTRAOPERATIVE FLUID: Approximately 1.5 L of crystalloids. ANESTHESIOLOGIST: Yasmany Sue MD SURGEON: Go Infante MD ASSISTANTS: Myself, Alex Merchant DO, PGY-4 as well as Remi Schafer DO, PGY-3 OPERATIVE PROCEDURE: The patient was taken to the operating room, placed on the operating table in supine position. After the induction of general anesthesia, the patient was prepped and draped in the usual sterile fashion. A time-out was performed identifying appropriate patient as well as appropriate surgery and appropriate indications, and that all preoperative antibiotics were given. After the time-out was performed and all were in agreement, attention was turned towards entering the abdomen. A 1.5-cm supraumbilical incision was made using an 11-blade. Dissection was then carried out through the underlying fascia using electrocautery. Fascia was then grabbed with Tamanna and brought up anteriorly through the incision. The posterior fascia was then entered using an 11-blade exposing the peritoneum. This was subsequently then grabbed with Negar clamps and then entered with Metzenbaum scissors. There was no nelson of fluid, blood, or at this time. An 0 Vicryl U-stitch was then placed in the underlying fascia, and then Briseyda trocar was then entered into the abdomen and secured with Vicryl. At this point, air insufflation was then connected, and opening pressure was approximately 5 mmHg. The abdomen was allowed to insufflate up to a total of 15 mmHg. At this point, the camera was then entered into the abdomen, and the underlying bowel was inspected and identified to ensure that there was no iatrogenic enterotomy made upon insertion into the abdomen. Everything appeared normal and fine. The rest of the abdomen was then examined. There was no gross pathology outside of the right upper quadrant. The gallbladder was not immediately visible, but it was clear. The omentum and the colon was stuck up into the right upper quadrant with associated inflammatory changes. The patient was then placed in the reverse Trendelenburg to try to further assist our visualization. At this point, we felt it was safe to proceed trocar placement. So, a small 5-mm incision was made subxiphoid using 11-blade followed by a 5-mm trocar insertion just lateral to the falciform ligament. We then placed two 5-mm trocars in the right upper quadrant again anesthetizing with 1% lidocaine followed by 5-mm incision with an 11-blade and 5-mm trocars. The omentum was then slowly dissected down using blunt dissection away from the gallbladder. At this point, we had a clear plane to actually grasp the gallbladder with the assistance of the retractor. This was then elevated up to the ipsilateral shoulder and posteriorly trying to give us better exposure to cystic triangle. Further dissection was needed to bring the transverse colon as well as the associated omentum down away from the body of the gallbladder consistently taking our time making sure to identify the appropriate point of dissection. After the gallbladder was retracted sufficiently enough to see the infundibulum, a second grasper was placed upon the infundibulum and traction was applied to better expose the cystic triangle. Given our lack of visualization, an OG tube was inserted to decompress the stomach. This helped only minimally. A fifth trocar was then placed again 5-mm trocar for a liver fan retractor. This was used to gently push down the omentum and the transverse colon inferiorly to give us further exposure into the cystic triangle. We then proceeded to begin blunt dissection of the cystic duct, which was readily identifiable exiting from the infundibulum of the gallbladder; however, there was a significant amount of fibrosis and surrounding inflammatory bands around the cystic duct inhibiting our ability to completely isolate the cystic duct itself. The node of Calot was noted as well as the cystic artery posteriorly; however, it became clear that we would be unable to circumferentiate cystic duct laparoscopically, and there was a question of the associated anatomy. Given the poor exposure and the overall inflammation surrounding the right upper quadrant, decision was made to convert to open. The camera was removed. The abdomen was left insufflated. Using a 15-blade, a 10-cm Tamanna incision was made in the right upper quadrant. Dissection was carried down to the muscle and the associated fascia using electrocautery. Care was taken to maintain hemostasis. After the abdomen was entered under direct visualization, the air insufflation was allowed to escape. We turned our attention to getting appropriate exposure. Maranda was placed on the gallbladder, and this was elevated again superiorly towards the ipsilateral triangle. We then inserted a Bookwalter self-retaining retractor with associated lap pad to protect the underlying bowel to give us appropriate exposure into the cystic triangle. Using a right angle dissector, we were able to circumnavigate the cystic duct, and then using chromic, passed two loops around the cystic and then circumnavigated the cystic artery as well as placing another loop around that. The chromics were then attached to hemostats, allowed to drape off to the side of the patient, and no structures were cut at this time. We then proceeded with our dissection of the gallbladder down from the fossa. This was initially done with electrocautery and then once the appropriate plane was identified, further carried out with electro dissection. After the gallbladder was completely removed from the liver bed, it was clear that there were only two structures entering the gallbladder, one which was previously identified as the cystic artery and the other one that was presumptive cystic duct. Given that there were no additional structures entering the gallbladder, and we clearly had what would be considered and opened critical view of safety, we proceeded with ligating these structures. Again, chromic ties were used. Two ties were placed on the proximal side, one on the distal specimen side. These structures were then ligated with Metzenbaum scissors, and the specimen was then delivered from the field. We then re-latasha our attention back to the abdomen ensuring that there was appropriate hemostasis which there was. There was no evidence of any bile leak at this time. The right upper quadrant was irrigated with warm normal saline and then suctioned out. A 15-Citizen Of [place] Thien drain was placed at the right upper quadrant, and then the self-retaining retractor was removed. The closure of the abdomen went as following: The peritoneum was closed in a continuous fashion using an 0 Vicryl suture, the posterior fascia was then closed in a continuous fashion using 0 PDS, and then the anterior fascia was then closed using interrupted [id number] again with 0 PDS. Skin was closed with lyn. The patient tolerated the procedure well. He was extubated successfully within the operating room and transferred to PACU in stable condition. Alex Merchant DO Go Infante MD
== END 2018-10-22 17:13 | disposition home health service (06) | DRG 415 ==
LOC: ED 09:12 → ERH 13:02 → 5RSO 15:50 → 2RNO 10-17 20:52 → 5RNO 10-18 16:32
PROVIDERS: ADMIT Internal Medicine; ATTEND Internal Medicine
PROC: 0FJ44ZZ Inspection of Gallbladder, Percutaneous Endoscopic Approach (ICD-10-PCS; 2018-10-17)
PROC: 0FT40ZZ Resection of Gallbladder, Open Approach (ICD-10-PCS; principal; 2018-10-17 13:45)
DX: K81.0 Acute cholecystitis (principal); N17.9 Acute kidney failure, unspecified; I44.2 Atrioventricular block, complete; I25.10 Atherosclerotic heart disease of native coronary artery without angina pectoris; I12.9 Hypertensive chronic kidney disease with stage 1 through stage 4 chronic kidney disease, or unspecified chronic kidney disease; K21.9 Gastro-esophageal reflux disease without esophagitis; Z95.0 Presence of cardiac pacemaker; Z87.891 Personal history of nicotine dependence; Z85.46 Personal history of malignant neoplasm of prostate; Z86.711 Personal history of pulmonary embolism; Z79.01 Long term (current) use of anticoagulants; I73.9 Peripheral vascular disease, unspecified; K58.0 Irritable bowel syndrome with diarrhea; Z87.19 Personal history of other diseases of the digestive system; N18.9 Chronic kidney disease, unspecified; Z53.31 Laparoscopic surgical procedure converted to open procedure; I08.3 Combined rheumatic disorders of mitral, aortic and tricuspid valves; D64.9 Anemia, unspecified; E78.5 Hyperlipidemia, unspecified; Z86.718 Personal history of other venous thrombosis and embolism; Z87.01 Personal history of pneumonia (recurrent); Z90.49 Acquired absence of other specified parts of digestive tract; Z95.5 Presence of coronary angioplasty implant and graft

== ENCOUNTER 2018-12-25 09:30 | Outpatient (CLI) | payer MEDICARE | END 2018-12-25 09:31 | disposition home or self-care (01) | LOC: RAD 09:30 ==